=== PATIENT | male | born 1970 | race Caucasian/White ===

== ENCOUNTER → 2020-08-14 09:43 | Outpatient (CLI) | payer OTHER, SELFPAY ==
[2020-08-14 09:50] LABS: Bacteria 0 SEEN /hpf (None Seen); Mucous, Urine 0 SEEN /hpf (<or=2+); Red Blood Cells-Urine 0 SEEN /hpf (0-5); Squamous Epithelial Cells - UA 0 SEEN /hpf (0-5); White Blood Cells 0 SEEN /hpf (0-5)
[2020-08-14 12:47] LABS: Absolute Lymphocyte Count 2.44 X10^3/uL (0.83-4.51); Absolute Neutrophil Count 2.9 X10^3/uL (2.0-7.7); Basophil# 0.06 X10^3/uL; Eosinophil# 0.12 X10^3/uL; Eosinophils% 1.9 % (0-5); Hematocrit 48.4 % (40-54); Hemoglobin 16.5 g/dL (13.0-16.5); Lymphocyte # 2.44 X10^3/ul (4.0); Lymphocyte % 39.2 % (19-41); Mean Corp Hgb Conc 34.1 g/dL (32-36); Mean Corpuscular Hgb 29.8 pg (27.0-32.0); Mean Corpuscular Volume 87.4 fL (80-94); Mean Platelet Vol. 10.1 fl (6.2-12.0); Monocyte# 0.64 X10^3/uL; Monocyte% 10.3 % (0-10); NRBC Flagged by Analyzer 0 % (0-5); Neutrophil # 2.93 X10^3/uL (2.7-7.7); Neutrophil % 47.1 % (47-70); Platelet Count 250 K/mm3 (150-450); RBC Distribution Width CV 12.6 % (11.6-14.6); RBC Distribution Width SD 40.8 fl (35.1-43.9); Red Blood Count 5.54 M/mm3 (4.6-6.2); White Blood Count 6.2 K/mm3 (4.4-11.0)
[2020-08-14 12:51] LABS: Color, Urine Yellow (Yellow); Glucose, Dipstick Normal (Normal); Ketone-Dipstick Negative (Negative); Leukocyte Esterase-Dipstick Negative /ul (Negative); Nitrite-Dipstick Negative (Negative); Occult Blood-Urine Negative /ul (Negative); Protein-Dipstick 15 mg/dl (Negative); Urine Bilirubin Dipstick Negative (Negative); Urine Clarity Clear (Clear); Urine Urobilinogen Normal (Normal)
[2020-08-14 13:09] LABS: ALB/GLOB Ratio 0.8 RATIO (0.9-2.4); AST(SGOT) 39 U/L (15-37); Alanine Aminotransfer ALT/SGPT 92 U/L (16-61); Albumin, Serum 3.6 g/dL (3.2-5.0); Alkaline Phosphatase 85 U/L (45-117); Anion Gap 5 (5-15); BUN 16 mg/dL (7-18); BUN/Creat Ratio 14.5 RATIO (10-20); Calcium,Total 9.1 mg/dL (8.5-10.1); Chloride 109 mmol/L (98-107); Cholesterol 177 mg/dL (200); EST Glomerular Filtration Rate 75 mL/min (>60); Est Glom Filt Rate - Afr Amer 91 mL/min (>60); Globulin 4.3 g/dL (2.2-4.2); Glucose 82 mg/dL (74-106); High Density Lipoprotein 51 mg/dL; Protein, Total 7.9 g/dL (6.4-8.2); Sodium Level 138 mmol/L (136-145); Thyroid Stim Hormone (TSH) 4.41 uIU/mL (0.358-3.74); Triglycerides 145 mg/dL; Very Low Density Lipoprotein 29 mg/dL (5-40)
[2020-08-18 13:45] LABS: Hepatitis B Surface Antibody Reactive; Hepatitis B Surface Antigen Non-Reactive (Nonreactive); Hepatitis C Antibody Non-Reactive (Nonreactive)
== END ==
PROVIDERS: PCP Family Medicine; Referring Provider Family Medicine; Visit Provider Family Medicine
DX: E04.1 Nontoxic single thyroid nodule (principal); I10 Essential (primary) hypertension; R79.89 Other specified abnormal findings of blood chemistry
CPT/HCPCS: 36415; 80053; 80061; 81001; 84439; 84443; 85025; 86706; 86803; 87340

== ENCOUNTER → 2020-08-21 08:31 | Outpatient (CLI) | payer OTHER, SELFPAY ==
--- NOTE | 2020-08-21 08:34 | US_ITS ---
STUDY: THYROID ULTRASOUND REASON FOR EXAM: Male, 50 years old. NODULE TECHNIQUE: Ultrasound evaluation of the thyroid was performed with real-time and static sweeeny-scale imaging. COMPARISON: None. FINDINGS: RIGHT LOBE: The right lobe of the thyroid gland measures 3.7 x 1.6 x 2.3 cm. There is a homogeneous echotexture. There are no demonstrated solid, cystic or complex lesions. LEFT LOBE: The left lobe of the thyroid gland measures 3.4 x 1.7 x 1.8 cm. There is a homogeneous echotexture. There are no demonstrated solid, cystic or complex lesions. ISTHMUS: The isthmus measures 6 mm . Bilateral lymph nodes are noted to 1.7 cm in size on the right and up to 1.1 cm on the left. US/Thyroid IMPRESSION: Mild prominence of the thyroid. Electronically Signed: De Brito DO at 23:20 EDT Tel [phone], Service support ,
== END ==
PROVIDERS: PCP Family Medicine; Referring Provider Family Medicine; Visit Provider Family Medicine
DX: E04.1 Nontoxic single thyroid nodule (principal)
CPT/HCPCS: 76536

== ENCOUNTER → 2020-08-28 14:20 | Outpatient (CLI) | payer OTHER, SELFPAY ==
--- NOTE | 2020-08-28 14:23 | US_ITS ---
HISTORY: LYMPHADENOPATHY COMPARISON: None TECHNIQUE: Grayscale and color Doppler sonography of the regions of clinical concern in the neck bilaterally. FINDINGS: Multiple cervical nodes are seen bilaterally with fatty gabriela. Largest on the right measures 1.8 x 0.5 x 0.9 cm. Largest on the left measures 1.4 x 0.3 x 0.7 cm. US/Ext Non Vasc Limited/Soft Tiss IMPRESSION: Multiple normal morphology cervical nodes are seen bilaterally, not definitely pathologically enlarged. Clinical follow-up recommended. at 0808 Reported and signed by: Pam Urbano MD Electronically Signed: Pam Urbano MD at 8:08 EDT Tel , Service support ,
== END ==
PROVIDERS: PCP Family Medicine; Referring Provider Family Medicine; Visit Provider Family Medicine
DX: R59.1 Generalized enlarged lymph nodes (principal)
CPT/HCPCS: 76882

== ENCOUNTER → 2020-09-04 08:42 | Outpatient (CLI) | payer OTHER, SELFPAY ==
[2020-09-04 10:18] LABS: T4 Free Direct 0.87 ng/dL (0.76-1.46)
[2020-09-07 20:57] LABS: Anti-Thyroglobulin AB < 1.0 IU/mL (0.0-0.9); Thyroglobulin, Serum Qt. 38.4 ng/mL (1.4-29.2); Thyroid Peroxidase AB 112 IU/mL (0-34)
== END ==
PROVIDERS: PCP Family Medicine; Referring Provider Family Medicine; Visit Provider Family Medicine
DX: R79.89 Other specified abnormal findings of blood chemistry (principal)
CPT/HCPCS: 36415; 84432; 84439; 86376; 86800

== ENCOUNTER → 2020-11-27 15:18 | Outpatient (CLI) | payer OTHER, SELFPAY ==
[2020-11-27 17:36] LABS: Absolute Lymphocyte Count 2.22 X10^3/uL (0.83-4.51); Absolute Neutrophil Count 3.4 X10^3/uL (2.0-7.7); Basophil# 0.07 X10^3/uL; Basophil% 1.1 % (0-1); Eosinophil# 0.18 X10^3/uL; Eosinophils% 2.7 % (0-5); Hematocrit 45.3 % (40-54); Hemoglobin 15.5 g/dL (13.0-16.5); Lymphocyte # 2.22 X10^3/ul (4.0); Lymphocyte % 33.7 % (19-41); Mean Corp Hgb Conc 34.2 g/dL (32-36); Mean Corpuscular Hgb 29.9 pg (27.0-32.0); Mean Corpuscular Volume 87.3 fL (80-94); Mean Platelet Vol. 10.4 fl (6.2-12.0); Monocyte# 0.74 X10^3/uL; Monocyte% 11.2 % (0-10); NRBC Flagged by Analyzer 0 % (0-5); Neutrophil # 3.35 X10^3/uL (2.7-7.7); Platelet Count 298 K/mm3 (150-450); RBC Distribution Width CV 12.4 % (11.6-14.6); RBC Distribution Width SD 39.9 fl (35.1-43.9); Red Blood Count 5.19 M/mm3 (4.6-6.2); White Blood Count 6.6 K/mm3 (4.4-11.0)
[2020-11-27 18:11] LABS: AST(SGOT) 33 U/L (15-37); Alanine Aminotransfer ALT/SGPT 75 U/L (16-61); Albumin, Serum 3.9 g/dL (3.2-5.0); Alkaline Phosphatase 97 U/L (45-117); Anion Gap 8 (5-15); BUN 15 mg/dL (7-18); BUN/Creat Ratio 11.8 RATIO (10-20); Calcium,Total 8.7 mg/dL (8.5-10.1); Chloride 107 mmol/L (98-107); Creatinine, Serum 1.27 mg/dL (0.70-1.30); EST Glomerular Filtration Rate 64 mL/min (>60); Est Glom Filt Rate - Afr Amer 77 mL/min (>60); Globulin 3.9 g/dL (2.2-4.2); Glucose 88 mg/dL (74-106); Potassium 3.7 mmol/L (3.5-5.1); Protein, Total 7.8 g/dL (6.4-8.2); Sodium Level 141 mmol/L (136-145); T4 Free Direct 1.01 ng/dL (0.76-1.46); Thyroid Stim Hormone (TSH) 3.54 uIU/mL (0.358-3.74)
== END ==
PROVIDERS: PCP Family Medicine; Visit Provider Family Medicine
DX: I10 Essential (primary) hypertension (principal); E06.3 Autoimmune thyroiditis
CPT/HCPCS: 36415; 80053; 84439; 84443; 85025

== ENCOUNTER → 2020-12-03 16:42 | Outpatient (CLI) | payer OTHER, SELFPAY ==
--- NOTE | 2020-12-03 16:43 | CT_ITS ---
STUDY: CT SOFT TISSUE NECK WITH CONTRAST REASON FOR EXAM: Male, 50 years old. Lymphadenopathy, doctor and quot;might and quot; have felt an enlarged lymph node. -- Patient denies any pain or trouble swallowing. Hx testicular cancer. RADIATION DOSAGE (If Supplied By Facility): CTDIvol = ( 18.31 ) mGy, DLP = ( 599.31 ) mGycm TECHNIQUE: The patient was scanned in a multi-detector CT scanner. High resolution transaxial imaging was performed following intravenous administration of IV 100mL Isovue-[id number]. Sagittal and coronal images were reconstructed. Individualized dose optimization techniques were used for this CT. COMPARISON: None. FINDINGS: Normal bilateral parotid glands. Normal bilateral deputy grand jury spaces. Normal bilateral parapharyngeal spaces. Normal bilateral carotid spaces. Normal bilateral sublingual and submandibular glands and spaces. Normal visualized nasopharynx. Normal retropharyngeal space. Normal perivertebral space. Normal visualized bilateral faucial tonsils. The visualized tongue, tongue base and oropharynx are normal. The visualized cervical lymph nodes (levels I-) are within normal size limits, and maintain normal morphology. There is a single prominent left jugular lymph node at the level before the mouth which measures 1.0 x 1.6 cm and maintains a normal fatty hilum consistent with a normal lymph node. There is no demonstrated solid or cystic mass lesion. There is no abnormal contrast enhancement. Normal epiglottis, bilateral vallecula and hypopharynx. The pre-epiglottic and paraglottic adipose spaces are normal. Normal visualized bilateral piriform sinuses, aryepiglottic folds, vocal cords, and arytenoid-cricoid articulations. Normal subglottic trachea. Normal bilateral lobes of the thyroid gland. Normal visualized pulmonary apices. Normal visualized paranasal sinuses. Normal visualized cervical spine. CT/Soft Tissue Neck WITH Contrast IMPRESSION: Normal enhanced CT examination of the soft tissues of the neck. Electronically Signed: Gil Schulz MD at 17:25 EST Tel , Service support ,
== END ==
PROVIDERS: PCP Family Medicine; Referring Provider Family Medicine; Visit Provider Family Medicine
DX: R59.1 Generalized enlarged lymph nodes (principal)
CPT/HCPCS: 70491; Q9967

== ENCOUNTER → 2021-05-25 07:25 | Outpatient (CLI) | payer OTHER, SELFPAY ==
[2021-05-25 07:30] LABS: Bacteria 0 SEEN /hpf (None Seen); Mucous, Urine 0 SEEN /hpf (<or=2+); Red Blood Cells-Urine 0 SEEN /hpf (0-5); Squamous Epithelial Cells - UA 0 SEEN /hpf (0-5)
[2021-05-25 10:12] LABS: Absolute Lymphocyte Count 2.17 X10^3/uL (0.83-4.51); Absolute Neutrophil Count 3.4 X10^3/uL (2.0-7.7); Basophil# 0.06 X10^3/uL; Basophil% 0.9 % (0-1); Eosinophil# 0.12 X10^3/uL; Eosinophils% 1.9 % (0-5); Hematocrit 47.1 % (40-54); Hemoglobin 16.1 g/dL (13.0-16.5); Lymphocyte # 2.17 X10^3/ul (0.83-4.51); Lymphocyte % 33.7 % (19-41); Mean Corp Hgb Conc 34.2 g/dL (32-36); Mean Corpuscular Hgb 30.1 pg (27.0-32.0); Mean Corpuscular Volume 88.2 fL (80-94); Mean Platelet Vol. 10.3 fl (6.2-12.0); Monocyte# 0.62 X10^3/uL; Monocyte% 9.6 % (0-10); NRBC Flagged by Analyzer 0 % (0-5); Neutrophil # 3.43 X10^3/uL (2.7-7.7); Neutrophil % 53.4 % (47-70); Platelet Count 234 K/mm3 (150-450); RBC Distribution Width CV 12.9 % (11.6-14.6); RBC Distribution Width SD 41.9 fl (35.1-43.9); Red Blood Count 5.34 M/mm3 (4.6-6.2); White Blood Count 6.4 K/mm3 (4.4-11.0)
[2021-05-25 10:15] LABS: Color, Urine Yellow (Yellow); Glucose, Dipstick Normal (Normal); Ketone-Dipstick Negative (Negative); Leukocyte Esterase-Dipstick Negative /ul (Negative); Nitrite-Dipstick Negative (Negative); Occult Blood-Urine Negative /ul (Negative); Protein-Dipstick 15 mg/dl (Negative); Urine Bilirubin Dipstick Negative (Negative); Urine Clarity Clear (Clear); Urine Urobilinogen Normal (Normal)
[2021-05-25 10:26] LABS: White Blood Cells 0-5 SEEN /hpf (0-5)
[2021-05-25 10:46] LABS: AST(SGOT) 39 U/L (15-37); Alanine Aminotransfer ALT/SGPT 111 U/L (16-61); Albumin, Serum 3.8 g/dL (3.2-5.0); Alkaline Phosphatase 93 U/L (45-117); Anion Gap 7 (5-15); BUN 15 mg/dL (7-18); BUN/Creat Ratio 13.4 RATIO (10-20); Calcium,Total 8.6 mg/dL (8.5-10.1); Chloride 108 mmol/L (98-107); Cholesterol 193 mg/dL (200); Creatinine, Serum 1.12 mg/dL (0.70-1.30); EST Glomerular Filtration Rate 73 mL/min (>60); Est Glom Filt Rate - Afr Amer 89 mL/min (>60); Glucose 84 mg/dL (74-106); High Density Lipoprotein 49 mg/dL; Potassium 3.8 mmol/L (3.5-5.1); Protein, Total 7.8 g/dL (6.4-8.2); Sodium Level 140 mmol/L (136-145); Triglycerides 138 mg/dL; Very Low Density Lipoprotein 28 mg/dL (5-40)
== END ==
PROVIDERS: PCP Family Medicine; Referring Provider Family Medicine; Visit Provider Family Medicine
DX: I10 Essential (primary) hypertension (principal); E06.3 Autoimmune thyroiditis; R79.89 Other specified abnormal findings of blood chemistry
CPT/HCPCS: 80053; 80061; 81001; 84439; 84443; 85025

== ENCOUNTER → 2021-08-23 08:43 | Outpatient (CLI) | payer OTHER, SELFPAY ==
[2021-08-23 10:21] LABS: Absolute Lymphocyte Count 1.78 X10^3/uL (0.83-4.51); Absolute Neutrophil Count 3.2 X10^3/uL (2.0-7.7); Basophil# 0.05 X10^3/uL; Basophil% 0.9 % (0-1); Eosinophils% 1.7 % (0-5); Hemoglobin 16.4 g/dL (13.0-16.5); Lymphocyte # 1.78 X10^3/ul (0.83-4.51); Lymphocyte % 30.4 % (19-41); Mean Corp Hgb Conc 34.9 g/dL (32-36); Mean Corpuscular Hgb 30.5 pg (27.0-32.0); Mean Corpuscular Volume 87.4 fL (80-94); Monocyte# 0.66 X10^3/uL; Monocyte% 11.3 % (0-10); NRBC Flagged by Analyzer 0 % (0-5); Neutrophil # 3.24 X10^3/uL (2.7-7.7); Neutrophil % 55.2 % (47-70); Platelet Count 248 K/mm3 (150-450); RBC Distribution Width CV 12.9 % (11.6-14.6); RBC Distribution Width SD 41.1 fl (35.1-43.9); Red Blood Count 5.38 M/mm3 (4.6-6.2); White Blood Count 5.9 K/mm3 (4.4-11.0)
[2021-08-23 11:25] LABS: ALB/GLOB Ratio 0.8 RATIO (0.9-2.4); AST(SGOT) 40 U/L (15-37); Alanine Aminotransfer ALT/SGPT 110 U/L (16-61); Albumin, Serum 3.7 g/dL (3.2-5.0); Alkaline Phosphatase 95 U/L (45-117); Anion Gap 9 (5-15); BUN 15 mg/dL (7-18); BUN/Creat Ratio 13.2 RATIO (10-20); Calcium,Total 8.9 mg/dL (8.5-10.1); Chloride 105 mmol/L (98-107); Creatinine, Serum 1.14 mg/dL (0.70-1.30); EST Glomerular Filtration Rate 72 mL/min (>60); Est Glom Filt Rate - Afr Amer 87 mL/min (>60); Globulin 4.4 g/dL (2.2-4.2); Glucose 82 mg/dL (74-106); Potassium 3.5 mmol/L (3.5-5.1); Protein, Total 8.1 g/dL (6.4-8.2); Sodium Level 140 mmol/L (136-145); T4 Free Direct 0.92 ng/dL (0.76-1.46); Thyroid Stim Hormone (TSH) 5.71 uIU/mL (0.358-3.74)
[2021-08-24 17:15] LABS: Anti-Thyroglobulin AB < 1.0 IU/mL (0.0-0.9); Thyroglobulin, Serum Qt. 49.9 ng/mL (1.4-29.2); Thyroid Peroxidase AB 165 IU/mL (0-34)
== END ==
PROVIDERS: PCP Family Medicine; Referring Provider Family Medicine; Visit Provider Family Medicine
DX: I10 Essential (primary) hypertension (principal); E06.3 Autoimmune thyroiditis; R94.5 Abnormal results of liver function studies
CPT/HCPCS: 36415; 80053; 84432; 84439; 84443; 85025; 86376; 86800

== ENCOUNTER 2021-11-17 15:18 | Outpatient (CLI) | payer OTHER, SELFPAY ==
[2021-11-17 15:24] LABS: Bacteria 0 SEEN /hpf (None Seen); Mucous, Urine 0 SEEN /hpf (<or=2+); Red Blood Cells-Urine 0 SEEN /hpf (0-5); Squamous Epithelial Cells - UA 0 SEEN /hpf (0-5); White Blood Cells 0 SEEN /hpf (0-5)
[2021-11-17 18:04] LABS: Absolute Lymphocyte Count 2.14 X10^3/uL (0.83-4.51); Absolute Neutrophil Count 3.3 X10^3/uL (2.0-7.7); Basophil# 0.04 X10^3/uL; Basophil% 0.6 % (0-1); Eosinophil# 0.14 X10^3/uL; Eosinophils% 2.2 % (0-5); Hematocrit 44.9 % (40-54); Hemoglobin 14.9 g/dL (13.0-16.5); Lymphocyte # 2.14 X10^3/ul (0.83-4.51); Lymphocyte % 33.3 % (19-41); Mean Corp Hgb Conc 33.2 g/dL (32-36); Mean Corpuscular Hgb 29.7 pg (27.0-32.0); Mean Corpuscular Volume 89.6 fL (80-94); Mean Platelet Vol. 9.9 fl (6.2-12.0); Monocyte# 0.83 X10^3/uL; Monocyte% 12.9 % (0-10); NRBC Flagged by Analyzer 0 % (0-5); Neutrophil # 3.26 X10^3/uL (2.7-7.7); Neutrophil % 50.7 % (47-70); Platelet Count 254 K/mm3 (150-450); RBC Distribution Width CV 13.1 % (11.6-14.6); RBC Distribution Width SD 42.8 fl (35.1-43.9); Red Blood Count 5.01 M/mm3 (4.6-6.2); White Blood Count 6.4 K/mm3 (4.4-11.0)
[2021-11-17 18:09] LABS: Color, Urine Yellow (Yellow); Glucose, Dipstick Normal (Normal); Ketone-Dipstick Negative (Negative); Leukocyte Esterase-Dipstick Negative /ul (Negative); Nitrite-Dipstick Negative (Negative); Occult Blood-Urine Negative /ul (Negative); Protein-Dipstick Negative (Negative); Specific Gravity, Urine 1.025 (1.002-1.030); Urine Bilirubin Dipstick Negative (Negative); Urine Clarity Clear (Clear); Urine Urobilinogen Normal (Normal)
[2021-11-17 19:45] LABS: ALB/GLOB Ratio 0.9 RATIO (0.9-2.4); AST(SGOT) 52 U/L (15-37); Alanine Aminotransfer ALT/SGPT 128 U/L (16-61); Albumin, Serum 3.6 g/dL (3.2-5.0); Alkaline Phosphatase 91 U/L (45-117); Anion Gap 5 (5-15); BUN 17 mg/dL (7-18); BUN/Creat Ratio 13.3 RATIO (10-20); Calcium,Total 9.2 mg/dL (8.5-10.1); Chloride 109 mmol/L (98-107); Cholesterol 180 mg/dL (200); Creatinine, Serum 1.28 mg/dL (0.70-1.30); EST Glomerular Filtration Rate 63 mL/min (>60); Est Glom Filt Rate - Afr Amer 76 mL/min (>60); Glucose 115 mg/dL (74-106); High Density Lipoprotein 36 mg/dL; Potassium 3.5 mmol/L (3.5-5.1); Protein, Total 7.6 g/dL (6.4-8.2); Sodium Level 141 mmol/L (136-145); T4 Free Direct 1.08 ng/dL (0.76-1.46); Thyroid Stim Hormone (TSH) 3.24 uIU/mL (0.358-3.74); Triglycerides 331 mg/dL; Very Low Density Lipoprotein 66 mg/dL (5-40)
[2021-11-18 16:26] LABS: Hemoglobin A1c 5.5 % (3.8-5.6)
== END 2021-11-17 23:59 | disposition short-term general hospital (02) ==
LOC: MFPLAB 15:19
PROVIDERS: PCP Family Medicine; Referring Provider Family Medicine; Visit Provider Family Medicine
DX: R73.09 Other abnormal glucose (principal); I10 Essential (primary) hypertension; E06.3 Autoimmune thyroiditis
CPT/HCPCS: 36415; 80053; 80061; 81001; 83036; 84439; 84443; 85025

== ENCOUNTER → 2022-05-20 | Outpatient (CLI) | payer OTHER, SELFPAY ==
[2022-05-20 16:42] LABS: Red Blood Cells-Urine 0 SEEN /hpf (0-5); Squamous Epithelial Cells - UA 0 SEEN /hpf (0-5); White Blood Cells 0 SEEN /hpf (0-5)
[2022-05-20 18:07] LABS: Color, Urine Yellow (Yellow); Glucose, Dipstick Normal (Normal); Ketone-Dipstick Negative (Negative); Leukocyte Esterase-Dipstick Negative /ul (Negative); Nitrite-Dipstick Negative (Negative); Occult Blood-Urine Negative /ul (Negative); Protein-Dipstick Negative (Negative); Specific Gravity, Urine 1.025 (1.002-1.030); Urine Bilirubin Dipstick Negative (Negative); Urine Clarity Clear (Clear); Urine Urobilinogen Normal (Normal)
[2022-05-20 18:24] LABS: ALB/GLOB Ratio 1.1 RATIO (0.9-2.4); AST(SGOT) 26 U/L (15-37); Alanine Aminotransfer ALT/SGPT 42 U/L (16-61); Albumin, Serum 3.8 g/dL (3.2-5.0); Alkaline Phosphatase 91 U/L (45-117); Anion Gap 6 (5-15); BUN 20 mg/dL (7-18); BUN/Creat Ratio 16.9 RATIO (10-20); Calcium,Total 8.8 mg/dL (8.5-10.1); Chloride 108 mmol/L (98-107); Cholesterol 171 mg/dL (200); Creatinine, Serum 1.18 mg/dL (0.70-1.30); EST Glomerular Filtration Rate 69 mL/min (>60); Est Glom Filt Rate - Afr Amer 83 mL/min (>60); Globulin 3.5 g/dL (2.2-4.2); Glucose 94 mg/dL (74-106); High Density Lipoprotein 54 mg/dL; Potassium 3.8 mmol/L (3.5-5.1); Protein, Total 7.3 g/dL (6.4-8.2); Sodium Level 141 mmol/L (136-145); Thyroid Stim Hormone (TSH) 1.43 uIU/mL (0.358-3.74); Triglycerides 106 mg/dL; Very Low Density Lipoprotein 21 mg/dL (5-40)
[2022-05-20 18:44] LABS: Bacteria RARE /hpf (None Seen); Calcium Oxalate Crystals Ur 1+ /hpf (<or=2+); Mucous, Urine 1+ /hpf (<or=2+)
== END | disposition home or self-care (01) ==
LOC: MFPLAB 16:32
PROVIDERS: PCP Family Medicine; Referring Provider Family Medicine; Visit Provider Family Medicine
DX: I10 Essential (primary) hypertension (principal); E06.3 Autoimmune thyroiditis
CPT/HCPCS: 36415; 80053; 80061; 81001; 84439; 84443

== ENCOUNTER → 2022-11-23 | Outpatient (CLI) | payer OTHER, SELFPAY ==
[2022-11-23 10:27] LABS: Absolute Lymphocyte Count 1.45 X10^3/uL (0.83-4.51); Absolute Neutrophil Count 3.1 X10^3/uL (2.0-7.7); Basophil# 0.03 X10^3/uL; Basophil% 0.6 % (0-1); Eosinophil# 0.11 X10^3/uL; Eosinophils% 2.1 % (0-5); Hematocrit 46.2 % (40-54); Hemoglobin 15.9 g/dL (13.0-16.5); Lymphocyte # 1.45 X10^3/ul (0.83-4.51); Lymphocyte % 27.7 % (19-41); Mean Corp Hgb Conc 34.4 g/dL (32-36); Mean Corpuscular Hgb 30.8 pg (27.0-32.0); Mean Corpuscular Volume 89.5 fL (80-94); Mean Platelet Vol. 10.4 fl (6.2-12.0); Monocyte# 0.53 X10^3/uL; Monocyte% 10.1 % (0-10); NRBC Flagged by Analyzer 0 % (0-5); Neutrophil % 59.3 % (47-70); Platelet Count 240 K/mm3 (150-450); RBC Distribution Width CV 12.7 % (11.6-14.6); RBC Distribution Width SD 41.7 fl (35.1-43.9); Red Blood Count 5.16 M/mm3 (4.6-6.2); White Blood Count 5.2 K/mm3 (4.4-11.0)
[2022-11-23 11:02] LABS: ALB/GLOB Ratio 1.2 RATIO (0.9-2.4); AST(SGOT) 20 U/L (15-37); Alanine Aminotransfer ALT/SGPT 29 U/L (16-61); Albumin, Serum 3.9 g/dL (3.2-5.0); Alkaline Phosphatase 88 U/L (45-117); Anion Gap 3 (5-15); BUN 16 mg/dL (7-18); BUN/Creat Ratio 16.2 RATIO (10-20); Calcium,Total 9.3 mg/dL (8.5-10.1); Chloride 107 mmol/L (98-107); Cholesterol 169 mg/dL (200); Creatinine, Serum 0.98 mg/dL (0.70-1.30); EST Glomerular Filtration Rate 85 mL/min (>60); Est Glom Filt Rate - Afr Amer 102 mL/min (>60); Globulin 3.3 g/dL (2.2-4.2); Glucose 85 mg/dL (74-106); High Density Lipoprotein 61 mg/dL; Protein, Total 7.2 g/dL (6.4-8.2); Sodium Level 140 mmol/L (136-145); T4 Free Direct 1.07 ng/dL (0.76-1.46); Thyroid Stim Hormone (TSH) 2.58 uIU/mL (0.358-3.74); Triglycerides 93 mg/dL; Very Low Density Lipoprotein 19 mg/dL (5-40)
== END | disposition home or self-care (01) ==
LOC: MFPLAB 08:14
PROVIDERS: PCP Family Medicine; Referring Provider Family Medicine; Visit Provider Family Medicine
DX: Z00.00 Encounter for general adult medical examination without abnormal findings (principal)
CPT/HCPCS: 36415; 80053; 80061; 84439; 84443; 85025

== ENCOUNTER → 2023-05-17 | Outpatient (CLI) | payer OTHER, SELFPAY ==
[2023-05-17 08:29] LABS: Bacteria 0 SEEN /hpf (None Seen); Mucous, Urine 0 SEEN /hpf (<or=2+); Red Blood Cells-Urine 0 SEEN /hpf (0-5); Squamous Epithelial Cells - UA 0 SEEN /hpf (0-5); White Blood Cells 0 SEEN /hpf (0-5)
[2023-05-17 10:13] LABS: Absolute Neutrophil Count 3.2 X10^3/uL (2.0-7.7); Basophil# 0.05 X10^3/uL; Basophil% 0.9 % (0-1); Eosinophil# 0.04 X10^3/uL; Eosinophils% 0.7 % (0-5); Hematocrit 45.8 % (40-54); Hemoglobin 16.1 g/dL (13.0-16.5); Lymphocyte % 29.5 % (19-41); Mean Corp Hgb Conc 35.2 g/dL (32-36); Mean Corpuscular Hgb 31.4 pg (27.0-32.0); Mean Corpuscular Volume 89.3 fL (80-94); Mean Platelet Vol. 10.2 fl (6.2-12.0); Monocyte# 0.52 X10^3/uL; Monocyte% 9.6 % (0-10); NRBC Flagged by Analyzer 0 % (0-5); Neutrophil % 58.9 % (47-70); Platelet Count 230 K/mm3 (150-450); RBC Distribution Width CV 12.6 % (11.6-14.6); RBC Distribution Width SD 41.1 fl (35.1-43.9); Red Blood Count 5.13 M/mm3 (4.6-6.2); White Blood Count 5.4 K/mm3 (4.4-11.0)
[2023-05-17 10:22] LABS: Color, Urine Yellow (Yellow); Glucose, Dipstick Normal (Normal); Ketone-Dipstick Negative (Negative); Leukocyte Esterase-Dipstick Negative /ul (Negative); Nitrite-Dipstick Negative (Negative); Occult Blood-Urine Negative /ul (Negative); Protein-Dipstick Negative (Negative); Urine Bilirubin Dipstick Negative (Negative); Urine Clarity Sl. Cloudy (Clear); Urine Urobilinogen Normal (Normal); Urine pH 6.5 (5.0 - 8.0)
[2023-05-17 10:52] LABS: ALB/GLOB Ratio 0.9 RATIO (0.9-2.4); AST(SGOT) 34 U/L (15-37); Alanine Aminotransfer ALT/SGPT 38 U/L (16-61); Albumin, Serum 3.6 g/dL (3.2-5.0); Alkaline Phosphatase 83 U/L (45-117); Anion Gap 5 (5-15); BUN 18 mg/dL (7-18); BUN/Creat Ratio 16.5 RATIO (10-20); Calcium,Total 8.8 mg/dL (8.5-10.1); Chloride 107 mmol/L (98-107); Creatinine, Serum 1.09 mg/dL (0.70-1.30); EST Glomerular Filtration Rate 75 mL/min (>60); Est Glom Filt Rate - Afr Amer 91 mL/min (>60); Glucose 91 mg/dL (74-106); Potassium 4.3 mmol/L (3.5-5.1); Protein, Total 7.6 g/dL (6.4-8.2); Sodium Level 139 mmol/L (136-145); T4 Free Direct 1.02 ng/dL (0.76-1.46); Thyroid Stim Hormone (TSH) 2.32 uIU/mL (0.358-3.74)
== END | disposition home or self-care (01) ==
LOC: MFPLAB 08:23
PROVIDERS: PCP Family Medicine; Visit Provider Family Medicine
DX: I10 Essential (primary) hypertension (principal); E06.3 Autoimmune thyroiditis
CPT/HCPCS: 36415; 80053; 81001; 84439; 84443; 85025

== ENCOUNTER → 2023-11-27 | Outpatient (CLI) | payer OTHER, SELFPAY ==
[2023-11-27 08:23] LABS: Bacteria 0 SEEN /hpf (None Seen); Red Blood Cells-Urine 0 SEEN /hpf (0-5)
--- OUTSIDE RECORDS SUMMARY | 2023-11-27 08:59 | XMS RPT_ITS | CCD ---
Author Name Unknown Address [address] [place] [address] Organization [facility] Care Team Providers Care Online User Experience Strategist Name Role Phone Kailyn Looney Unavailable [phone] GIL DURAN Attending Unavail able KLAPCHABerkley, GIL JO Referring Unavail able COCUMELLTanvi, KAILYN PEARSON Primary Care Unavaila ble KLAPBETSY, GIL JO Admitting Unavail able KLAPCHABerkley, GIL JO Attending Unavail able COCUMELLTanvi, KAILYN PEARSON Primary Care Unavaila ble CAMRYN, GIL JO Admitting Unavail able COCUMELLTanvi, KAILYN PEARSON Primary Care Unavaila ble SANDRO PAYNE Attending Unavailable Fawn, Kailyn Pearson Primary Care Provider KAILYN LOONEY Primary Care Unavaila ble COCUMELLI, KAILYN PEARSON Admitting Unavaila ble COCUMELLTanvi, KAILYN PEARSON Primary Care Unavaila ble GAIBLE, SANDRA ALVARADO Admitting Unavailab le GAIBLE, SANDRA ALVARADO Referring Unavailab le COCUMELLTanvi, KAILYN PEARSON Primary Care Unavaila ble Fawn, Kailyn Pearson Primary Care Provider [phone] KAILYN LOONEY Attending Unavaila ble COCUMELLTanvi, KAILYN PEARSON Primary Care Unavaila ble Medications Current Medications Medication Drug Class(es) Dates Sig (Normalized) Sig (Original) amLODIPine 5 mg / valsartan 160 mg oral tablet (13 sources) Dihydropyridine Calcium Channel Jose David, Angiotensin 2 Receptor Jose David Start: 07-30-2020 take 1 tablet by mouth once daily amLODIPine-valsa rtan (EXFORGE) 5-160 mg per tablet Indications: Hypertension, essential Take 1 (one) tablet by mouth daily . 30 tablet 1 07/30/2020 Active Completed/Discontinued Medications Medication Drug Class(es) Dates Sig (Normalized) Sig (Original) acetaminophen 325 mg / HYDROcodone bitartrate 7.5 mg oral tablet (13 sources) Opioid Agonist Start: 12-11-2019 End: 12-11-2019 HYDROcodone-acetam inophen (NORCO) 7.5-325 mg per tablet 2 tablet Problems Active Problems Problem Classification Problem Date Documented Date Episodic/Chronic Abdominal pain (1 source) Left flank pain; Translations: [Left flank pain] Episodic Disorders of lipid metabolism (20 sources) Hypertriglyceridemia ; Translations: [Hypertriglyceridemi a] Onset: 08-04-2016 08-04-2016 Chronic Essential hypertension (20 sources) Essential hypertension; Translations: [Hypertensive disorder] Onset: 08-04-2016 08-18-2017 Chronic Other connective tissue disease (1 source) Triggering of digit; Translations: [Trigger middle finger of left hand] Episodic Other endocrine disorders (2 sources) Deficiency of testosterone biosynthesis; 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 Other injuries and conditions due to external causes (1 source) Injury of nose; Translations: [Injury of nose, sequela] Episodic Other lower respiratory disease (1 source) Apnea; Translations: [Witnessed episode of apnea] Episodic Other lower respiratory disease (1 source) Snoring; Translations: [Habitual snoring] Episodic Other male genital disorders (16 sources) Impotence of organic origin; Translations: [Erectile dysfunction] Onset: 08-04-2016 08-04-2016 Chronic Other male genital disorders (11 sources) Impotence; Translations: [Erectile dysfunction] Onset: 08-04-2016 08-04-2016 Chronic Other male genital disorders (1 source) Male erectile dysfunction, unspecified; Translations: [Erectile dysfunction] Onset: 08-04-2016 08-04-2016 Chronic Other nervous system disorders (1 source) Acute postoperative pain; Translations: [Acute post-operative pain] Episodic Other upper respiratory disease (1 source) Chronic rhinitis; Translations: [Chronic rhinitis] Chronic Other upper respiratory disease (5 sources) Deviated nasal septum; Translations: [DNS (deviated nasal septum)] Episodic Other upper respiratory disease (7 sources) Hypertrophy of nasal turbinates; Translations: [Hypertrophy of both inferior nasal turbinates] Episodic Other upper respiratory disease (7 sources) Nasal obstruction; Translations: [Nasal obstruction without choanal atresia] Episodic Residual codes; unclassified (1 source) Requires a hepatitis A vaccination; Translations: [Need for hepatitis A immunization] Episodic Residual codes; unclassified (5 sources) H/O: surgery; Translations: [History of nasal septoplasty] Episodic Spondylosis; intervertebral disc disorders; other back problems (2 sources) Backache; Translations: [Acute low back pain] Episodic Unclassified (8 sources) Patient encounter status; Translations: [Physical exam] Unclassified (1 source) Medication side effects present; Translations: [Medication side effect] Past or Other Problems Problem Classification Problem Date Documented Da te Episodic/Chronic Genitourinary symptoms and ill-defined conditions (1 source) Increased frequency of urination; Translations: [Urinary frequency] Episodic Other circulatory disease (17 sources) Elevated blood pressure; Translations: [Elevated blood pressure reading] Onset: 03-15-2019 03-15-2019 Episodic Other injuries and conditions due to external causes (1 source) Motion sickness; Translations: [Motion sickness, initial encounter] Episodic Other upper respiratory infections (20 sources) Chronic sinusitis; Translations: [Sinobronchitis] Onset: 08-18-2017 Resolved: 05-21-2018 08-18-2017 Chronic Results Test Name Value Interpretation Reference Range Facil ity Vital Signs Date Time Vital Sign Value Performing Clinician Jhoana gann 01-10-2020 08:30-0500 BMI (Body Mass Index) 35.45 kg/m2 [facility] 01-10-2020 08:30-0500 Body Temperature 99.19 [degF] [facility] 01-10-2020 08:30-0500 Body weight 96.[address] [facility] 01-10-2020 08:30-0500 BP Diastolic 78 mm[Hg] [facility] 01-10-2020 08:30-0500 BP Systolic 116 mm[Hg] [facility] 01-10-2020 08:30-[address] [facility] 01-10-2020 08:30-0500 Pulse (Heart Rate) 66 /min [facility] 01-10-2020 08:30-0500 Pulse Oximetry 98 % [facility] 12-11-2019 16:08-0500 Body Temperature 97.9 [degF] Gil Duran [facility] 12-11-2019 16:08-0500 BP Diastolic 81 mm[Hg] Gil Duran [facility] 12-11-2019 16:08-0500 BP Systolic 133 mm[Hg] Gil Duran [facility] 12-11-2019 16:08-0500 Pulse (Heart Rate) 80 /min Gil Duran [facility] 12-11-2019 16:08-0500 Pulse Oximetry 99 % Gil Duran [facility] 12-11-2019 16:08-0500 Respiratory Rate 14 /min Gil Duran [facility] 10-11-2019 08:05-0500 Body Temperature 98.49 [degF] Gil Duran [facility] 10-11-2019 08:05-0500 Pulse (Heart Rate) 85 /min Gil Duran [facility] 10-11-2019 08:05-0500 Pulse Oximetry 93 % Gil Duran [facility] 08-16-2019 08:29-0400 BMI (Body Mass Index) 35.28 kg/m2 [facility] 08-16-2019 08:29-0400 Body Temperature 98.2 [degF] [facility] 08-16-2019 08:29-0400 Body weight 96.16 kg [facility] 08-16-2019 08:29-0400 BP Diastolic 82 mm[Hg] [facility] 08-16-2019 08:29-0400 BP Systolic 126 mm[Hg] [facility] 08-16-2019 08:29-0400 Height 165.1 cm [facility] 08-16-2019 08:29-0400 Pulse (Heart Rate) 80 /min [facility] 08-16-2019 08:29-0400 Pulse Oximetry 96 % [facility] 07-19-2019 08:51-0400 BP Diastolic 72 mm[Hg] [facility] 07-19-2019 08:51-0400 BP Systolic 120 mm[Hg] [facility] 07-19-2019 08:29-0400 BMI (Body Mass Index) 35.28 kg/m2 [facility] 07-19-2019 08:29-0400 Body Temperature 98.2 [degF] [facility] 07-19-2019 08:29-0400 Body [facility] 96.16 [facility] 07-19-2019 08:29-0400 Height 165.1 cm [facility] 07-19-2019 08:29-0400 Pulse (Heart Rate) 77 /min [facility] 07-19-2019 08:29-0400 Pulse Oximetry 96 % [facility] 04-05-2019 10:33-0400 BMI (Body Mass Index) 35.61 kg/m2 [facility] 04-05-2019 10:33-0400 Body Temperature 98.4 [degF] [facility] 04-05-2019 10:33-0400 BP Diastolic 79 mm[Hg] [facility] 04-05-2019 10:33-0400 BP Systolic 117 mm[Hg] [facility] 04-05-2019 10:33-[address] [facility] 04-05-2019 10:33-0400 Pulse (Heart Rate) 87 /min [facility] 04-05-2019 10:33-0400 Pulse Oximetry 95 % [facility] 04-05-2019 10:33-0400 Weight 97.07 kg [facility] 03-15-2019 12:03-0400 BP Diastolic 94 mm[Hg] [facility] 03-15-2019 12:03-0400 BP Systolic 142 mm[Hg] [facility] 03-15-2019 11:01-0400 BMI (Body Mass Index) 35.61 kg/m2 [facility] 03-15-2019 11:01-0400 Body Temperature 98.29 [degF] [facility] 03-15-2019 11:01-0400 Height 165.1 cm [facility] 03-15-2019 11:01-0400 Pulse (Heart Rate) 77 /min [facility] 03-15-2019 11:01-0400 Pulse Oximetry 98 % [facility] 03-15-2019 11:01-0400 Weight 97.07 kg Kailyn Looney [facility] 01-11-2019 07:59-0500 BMI (Body Mass Index) 35.11 kg/m2 Kailyn Looney [facility] 01-11-2019 07:59-0500 Body Temperature 97.59 [degF] Kailyn Looney [facility] 01-11-2019 07:59-0500 BP Diastolic 100 mm[Hg] Kailyn Looney [facility] 01-11-2019 07:59-0500 BP Systolic 154 mm[Hg] [facility] 01-11-2019 07:59-0500 Height 165.1 cm [facility] 01-11-2019 07:59-0500 Pulse (Heart Rate) 84 /min Kailyn Looney [facility] 01-11-2019 07:59-0500 Pulse Oximetry 98 % Kailyn Fawn [facility] 01-11-2019 07:59-0500 Weight 95.71 kg [facility] 12-14-2018 10:59-0500 BMI (Body Mass Index) 35.78 kg/m2 [facility] 12-14-2018 10:59-0500 Body Temperature 97.59 [degF] Kailyn Nidatanvi [facility] 12-14-2018 10:59-0500 BP Diastolic 100 mm[Hg] [facility] 12-14-2018 10:59-0500 BP Systolic 144 mm[Hg] [facility] 12-14-2018 10:59-0500 Height 165.1 cm [facility] 12-14-2018 10:59-0500 Pulse (Heart Rate) 67 /min [facility] 12-14-2018 10:59-0500 Pulse Oximetry 98 % Kailyn Alvatanvi [facility] 12-14-2018 10:59-0500 Weight 97.52 kg [facility] 11-02-2018 11:42-0500 BMI (Body Mass Index) 35.61 kg/m2 Kailyn Looney [facility] 11-02-2018 11:42-0500 Body Temperature 99.19 [degF] [facility] 11-02-2018 11:42-0500 BP Diastolic 100 mm[Hg] Kailyn Looney [facility] 11-02-2018 11:42-0500 BP Systolic 140 mm[Hg] Kailyn Looney [facility] 11-02-2018 11:42-0500 Height 165.1 cm Kailyn Looney [facility] 11-02-2018 11:42-0500 Pulse (Heart Rate) 80 /min Kailyn Looney [facility] 11-02-2018 11:42-0500 Pulse Oximetry 98 % Kailyn Looney [facility] 11-02-2018 11:42-0500 Weight 97.07 kg Kailyn Looney [facility] 10-28-2018 02:30-0500 BP Diastolic 90 mm[Hg] [facility] 10-28-2018 02:30-0500 BP Systolic 166 mm[Hg] Chetan [facility] 10-28-2018 02:30-0500 Pulse (Heart Rate) 83 /min [facility] 10-28-2018 02:30-0500 Pulse Oximetry 97 % [facility] 10-28-2018 02:30-0500 Respiratory Rate 14 /min [facility] 10-27-2018 22:34-0500 BMI (Body Mass Index) 34.45 kg/m2 [facility] 10-27-2018 22:34-0500 Body Temperature 99.3 [degF] Chetan [facility] 10-27-2018 22:34-0500 Height 165.1 cm Chetan [facility] 10-27-2018 22:34-0500 Weight 93.89 kg [facility] 10-27-2018 18:00-0500 BP Diastolic 99 mm[Hg] Leslie [facility] 10-27-2018 18:00-0500 BP Systolic 171 mm[Hg] [facility] 10-27-2018 18:00-0500 Pulse (Heart Rate) 77 /min [facility] 10-27-2018 18:00-0500 Pulse Oximetry 93 % [facility] 10-27-2018 17:30-0500 Respiratory Rate 16 /min [facility] 10-27-2018 15:56-0500 BMI (Body Mass Index) 35.53 kg/m2 [facility] 10-27-2018 15:56-0500 Body Temperature 98.01 [degF] Leslie Chung [facility] 10-27-2018 15:56-0500 Height 162.6 cm Leslie Chung [facility] 10-27-2018 15:56-0500 Weight 93.89 kg Leslie Chung [facility] 08-31-2018 10:36-0400 BMI (Body Mass Index) 35.01 kg/m2 Kailyn Looney [facility] 08-31-2018 10:36-0400 Body Temperature 98.71 [degF] [facility] 08-31-2018 10:36-0400 BP Diastolic 88 mm[Hg] [facility] 08-31-2018 10:36-0400 BP Systolic 144 mm[Hg] [facility] 08-31-2018 10:36-0400 Height 165.1 cm [facility] 08-31-2018 10:36-0400 Pulse (Heart Rate) 81 /min [facility] 08-31-2018 10:36-0400 Pulse Oximetry 94 % [facility] 08-31-2018 10:36-0400 Weight 95.44 kg [facility] 05-25-2018 09:03-0400 BMI (Body Mass Index) 36.44 kg/m2 [facility] 05-25-2018 09:03-0400 Body Temperature 98.91 [degF] [facility] 05-25-2018 09:03-0400 BP Diastolic 80 mm[Hg] [facility] 05-25-2018 09:03-0400 BP Systolic 128 mm[Hg] [facility] 05-25-2018 09:03-0400 Height 165.1 cm [facility] 05-25-2018 09:03-0400 Pulse (Heart Rate) 71 /min [facility] 05-25-2018 09:03-0400 Pulse Oximetry 98 % Kailyn Looney [facility] 05-25-2018 09:03-0400 Weight 99.34 kg Kailyn Looney [facility] 12-15-2017 09:18-0500 BMI (Body Mass Index) 34.45 kg/m2 [facility] Work Phone: 12-15-2017 09:18-0500 Body Temperature 98.01 [degF] [facility]: 12-15-2017 09:18-0500 BP Diastolic 86 mm[Hg] [facility] Work Phone: 12-15-2017 09:18-0500 BP Systolic 124 mm[Hg] [facility] Work Phone: 12-15-2017 09:18-0500 Height 165.1 cm [facility] Work Phone: 12-15-2017 09:18-0500 Pulse (Heart Rate) 71 /min [facility] Work Phone: 12-15-2017 09:18-0500 Pulse Oximetry 98 % [facility] Work Phone: 12-15-2017 09:18-0500 Weight 93.89 kg [facility] Work Phone: 11-13-2017 12:57-0500 BMI (Body Mass Index) 34.28 kg/m2 [facility] Work Phone: 11-13-2017 12:57-0500 Body Temperature 99.19 [degF] [facility] Work Phone: 11-13-2017 12:57-0500 BP Diastolic 80 mm[Hg] [facility] Work Phone: 11-13-2017 12:57-0500 BP Systolic 122 mm[Hg] [facility] Work Phone: 11-13-2017 12:57-0500 Height 165.1 cm [facility] Work Phone: 11-13-2017 12:57-0500 Pulse (Heart Rate) 76 /min [facility] Work Phone: 11-13-2017 12:57-0500 Pulse Oximetry 98 % [facility] Work Phone: 11-13-2017 12:57-0500 Weight 93.44 kg [facility] Work Phone: 08-18-2017 11:10-0400 BMI (Body Mass Index) 34.28 kg/m2 Kailyn Looney [facility] Work Phone: 08-18-2017 11:10-0400 Body Temperature 98.6 [degF] Kailyn Looney [facility] Work Phone: 08-18-2017 11:10-0400 BP Diastolic 80 mm[Hg] Kailyn Looney [facility] Work Phone: 08-18-2017 11:10-0400 BP Systolic 124 mm[Hg] Kailyn Looney [facility] Work Phone: 08-18-2017 11:10-0400 Height 165.1 cm Kailyn Looney [facility] Work Phone: 08-18-2017 11:10-0400 Pulse (Heart Rate) 79 /min Kailyn Looney [facility] Work Phone: 08-18-2017 11:10-0400 Pulse Oximetry 98 % Kailyn Looney [facility] Work Phone: 08-18-2017 11:10-0400 Weight 93.44 kg Kailyn Looney [facility] Work Phone: Encounters Encounter Date Encounter Type Care Provider Facility Start: 12-12-2022 [facility] Start: 01-19-2021 End: 01-19-2021 Orders Only Talita Jesus Work Phone: [facility] Start: 05-12-2020 End: 05-12-2020 Patient encounter procedure SANDRA ALVARADO MOMARKUS [facility] Start: 01-17-2020 Patient encounter procedure KAILYN LOONEY [facility] Start: 01-10-2020 End: 01-10-2020 Periodic preventive med est patient 40-64yrs Kailyn Pearson Fawn Work Phone: [facility] Procedures Date Procedure Procedure Detail Performing Clinician Start: 05-15-2020 Colonoscopy Talita hills Start: 08-16-2019 Ct maxillofacial w/o contrast material Gil Duran Work Phone: Start: 08-16-2019 Urinalysis macro (dipstick) panel - Urine Kailyn Pearson Fawn Work Phone: Start: 01-11-2019 Adult depression scr eening assessment Kailyn Looney Start: 10-28-2018 End: 10-28-2018 Ct angiography chest w/contrast/noncontrast Jace Collado Work Phone: Start: 10-27-2018 End: 10-27-2018 Hepatic function 2000 panel - Serum or Plasma Jace Collado Work Phone: Start: 10-27-2018 End: 10-27-2018 INR in Platelet poor plasma by Coagulation assay Jace Collado Work Phone: Start: 10-27-2018 End: 10-27-2018 Lipase [Enzymatic activity/volume] in Serum or Plasma Jace Collado Work Phone: Start: 10-27-2018 End: 10-27-2018 Troponin measurement Jace Collado Work Phone: Start: 10-27-2018 End: 10-27-2018 12 lead ECG Leslie Chung Work Phone: Start: 10-27-2018 End: 10-27-2018 CT of urinary tract Leslie Chung Work Phone: Start: 10-27-2018 End: 10-27-2018 Urinalysis Leslie Chung Work Phone: Start: 10-27-2018 End: 10-27-2018 Basic metabolic 2000 panel - Serum or Plasma Leslie Chung Work Phone: Start: 10-27-2018 End: 10-27-2018 Complete blood count with white cell differential, automated Leslie Chung Work Phone: Start: 10-27-2018 End: 10-27-2018 Complete blood count with white cell differential, manual Leslie Chung Work Phone: Start: 10-27-2018 End: 10-27-2018 WALDRON TOP Alysa K Lurye Work Phone: Start: 10-27-2018 End: 10-27-2018 LAVENDER TOP Alysa K Lurye Work Phone: Start: 10-27-2018 End: 10-27-2018 LIGHT BLUE TOP Alysa K Lurye Work Phone: Start: 10-27-2018 End: 10-27-2018 LIGHT GREEN TOP Alysa K Lurye Work Phone: Start: 10-27-2018 End: 10-27-2018 MINT GREEN TOP Alysa K Lurye Work Phone: Start: 10-27-2018 End: 10-27-2018 RAINBOW DRAW Alysa K Lurye Work Phone: Start: 12-15-2017 Adult depression scr eening assessment Leslie Sheldon Plan of Treatment Date Care Activity Detail Author Start: 05-15-2030 Screening for malignant neoplasm of colon [facility] Start: 01-16-2022 Prostate specific antigen measurement PSA Level [facility] Start: 01-09-2021 History and physical examination, annual for health maintenance Wellness Visit [facility] Start: 03-20-2020 End: 03-20-2020 Office Visit 03/20/2020 Office Visit Otolaryngology Gil Duran, DO [address] [place] [address] [phone] [facility] Start: 02-08-2020 Administration of herpes zoster vaccine Zoster Vaccines (1 of 2) [facility] Start: 02-08-2020 Screening for malignant neoplasm of colon [facility] Start: 01-12-2020 Depression screening using PHQ-9 (Patient Health Questionnaire 9) score DEPRESSION SCREENING (PHQ9) [facility] Start: 01-12-2020 Screening for substance abuse SUBSTANCE ABUSE SCREENING (AUDIT-C) [facility] Start: 01-10-2020 End: 01-10-2020 Office Visit 01/10/2020 Office Visit Primary Care Kailyn Looney, DO [address] [facility] [address] [place] [address] [phone] [facility] Start: 01-07-2020 End: 01-07-2020 Follow-Up 01/07/2020 Follow-Up Otolaryngology Gil Duran, DO [address] [facility] [address] [place] [address] [phone] [facility] Start: 12-31-2019 End: 12-31-2019 Follow-Up 12/31/2019 Follow-Up Otolaryngology Gil Duran, DO [address] [facility] [address] [place] [address] [phone] [facility] Start: 12-25-2019 End: 12-25-2019 Clinical Support 12/25/2019 Clinical Support Otolaryngology Janet Villaseñor AuD [facility] Start: 12-24-2019 End: 12-24-2019 Follow-Up 12/24/2019 Follow-Up Otolaryngology Gil Duran, DO [address] [facility] [address] [place] [address] [phone] [facility] Start: 12-17-2019 End: 12-17-2019 Follow-Up 12/17/2019 Follow-Up Otolaryngology Gil Duran, DO [address] [facility] [address] [place] [address] [phone] [facility] Start: 12-14-2019 History and physical examination, annual for health maintenance Wellness Visit [facility] Start: 12-13-2019 End: 12-13-2019 Follow-Up 12/13/2019 Follow-Up Otolaryngology Gil Duran, DO [address] [facility] [address] [place] [address] [phone] [facility] Start: 09-06-2019 End: 09-06-2019 Office Visit 09/06/2019 Office Visit Primary Care Kailyn Looney, DO [address] [facility] [address] [place] [address] [phone] [facility] Start: 08-23-2019 End: 08-23-2019 Office Visit 08/23/2019 Office Visit Otolaryngology Leslie Buck, DO [address] [facility] [address] [place] [address] [phone] [facility] Start: 08-02-2019 End: 08-02-2019 Office Visit 08/02/2019 Office Visit Otolaryngology Gil Duran, DO [address] [facility] [address] [place] [address] [phone] [facility] Start: 07-07-2019 Influenza vaccination given [facility] Start: 04-05-2019 End: 04-05-2019 Office Visit 04/05/2019 Office Visit Primary Care Kailyn Looney, DO [address] [facility] [address] [place] [address] [phone] [facility] Start: 02-22-2019 End: 02-22-2019 Office Visit 02/22/2019 Office Visit Primary Care Kailyn Looney, DO [address] [facility] [address] [place] [address] [phone] [facility] Start: 01-11-2019 End: 01-11-2019 Office Visit 01/11/2019 Office Visit Primary Care Kailyn Looney DO [address] [facility] [address] [place] [address] [phone] [facility] Start: 12-15-2018 Adult depression screening assessment DEPRESSION SCREENING (PHQ9) [facility] Start: 12-15-2018 Depression screening using PHQ-9 (Patient Health Questionnaire 9) score DEPRESSION SCREENING (PHQ9) [facility] Start: 12-15-2018 Screening for substance abuse SUBSTANCE ABUSE SCREENING (AUDIT-C) [facility] Start: 12-15-2018 SUBSTANCE ABUSE SCREENING (AUDIT-C) SUBSTANCE ABUSE SCREENING (AUDIT-C) [facility] Start: 12-14-2018 End: 12-14-2018 Ambulatory 12/14/2018 Office Visit Primary Care Kailyn Looney DO [address] [facility] [address] [place] [address] [phone] [facility] Start: 07-07-2018 Influenza vaccination SEQUENTIAL INFLUENZA VACCINE (#1) [facility] Start: 07-07-2018 Influenza vaccination given SEQUENTIAL INFLUENZA VACCINE (#1) [facility] Start: 07-07-2017 Influenza vaccination SEQUENTIAL INFLUENZA VACCINE (#1) [facility] Work Phone: Start: 02-08-1988 Hepatitis C antibody, confirmatory test Hepatitis C Screening [facility] Start: 1986 COVID-19 Vaccine (1 of 2) COVID-19 Vaccine (1 of 2) [facility] Start: 1985 HIV screening HIV Screening [facility] Start: 1982 Adolescent depression screening assessment Depression Screening (PHQ9) [facility] Start: 1970 Prostate specific antigen measurement PSA Level [facility] Start: 1970 Tetanus vaccination [facility] Work Phone: End: 08-16-2020 Bacteria identified Aer cx Nom (Unsp spec) Urine Aerobic Culture Microbiology Routine Urinary frequency 1 Occurrences starting 08/16/2019 until 08/16/2020 [facility] Immunizations Immunization Date Immunization Notes Care Provider Fa cility 08-13-2019 Influenza, injectabl e, Madin Heather Canine Kidney, preservative free, quadrivalent Gil Duran [facility] 07-19-2019 hepatitis A vaccine, adult dosage Abbie ireland Cocumerajni [facility] 07-19-2019 hepatitis A vaccine, unspecified formulation Kailyn Looney [facility] 02-15-2019 hepatitis A vaccine, adult dosage Abbie ireland Cocumerajni [facility] 01-16-2019 hepatitis A vaccine, adult dosage Prince Duran [facility] 08-18-2017 influenza, injectabl e, quadrivalent, preservative free Gil Klapchar [facility] 07-26-2016 influenza, injectabl e, quadrivalent, preservative free Gil Klapchar [facility] Payers Date Payer Category Payer Unknown [id number] 2015 Unknown xxxxxxxxx [id number] 2015 Unknown [facility]/EFREM/EFREM PLUS [id number] 2015-Present [id number] 1970 Unknown [id number] 1970 Unknown [id number] 1970 Unknown [id number] 1970 Unknown [id number] 1970 Unknown [id number] 1970 Unknown [id number] 1970 Unknown [id number] Social History Date Type Detail Facility Start: 12-15-2017 End: 08-16-2019 Tobacco smoking status NHIS Never smoker [facility] Work Phone: Sex Assigned At Not on file [facility] Work Phone: Start: 01-01-2016 Alcohol Comment rare [facility] Start: 07-19-2019 End: 08-16-2019 Alcohol intake Current drinker of alcohol (finding) [facility] Start: 07-19-2019 History SDOH Social Connections Phone 5 [facility] Start: 07-19-2019 History SDOH Food Worry 1 [facility] Start: 08-28-2020 Tobacco use and exposure Never used [facility] Medical Equipment Procedure Code Equipment Code Equipment Origin al Text Equipment Identifier Dates Hemostat 4 X 8in Surgicel - Sn/A [id number] Start: 12-11-2019 Assessments Note Patient: VINH COLBY RN: [phone] Age: 50 years Sex: Male : 1970 Associated Diagnoses: None Author: Austin Zavala DO Supervising Physician Comments GENERAL SURGERY PROGRESS NOTE SUBJECTIVE: Patient doing very well overnight. Continuing to have bowel function. Did not require any IV pain medications. OBJECTIVE: VS, AF, RA Vital Signs (Past 36 Hours) Last Charted Minimum Maximum Temperature 98.4 (09/27 00:20) 98.2 (09/26 15:00) 98.9 (09/26 03:25) Pulse 86 (09/27 07:56) 79 (09/26 02:44) 93 (09/26 15:00) Resp 16 (09/27 07:56) 16 (09/27 07:56) 16 (09/27 07:56) Pulse Ox 94 (09/27 07:56) 91 (09/26 07:48) 94 (09/27 07:56) Pain Score 5 (09/26 19:55) 5 (09/26 19:55) 5 (09/26 19:55) BP 165/118 (09/27 00:20) Minimum Maximum Systolic BP 144/82 (09/26 15:00) 165/118 (09/27 00:20) Diastolic BP 144/82 (09/26 15:00) 165/118 (09/27 00:20) UOP: voiding 600 / 400 NG: removed RUTHY R (retrorectus): - (SS) RUTHY L (subq): - (SS) PHYSICAL EXAM: GEN: (more content not included)... Diagnosis Physical exam - Primary Unspecified general medical examination Lipid screening Screening for lipoid disorders Diabetes mellitus screening Screening for diabetes mellitus Diagnosis Influenza A - Primary Influenza with other respiratory manifestations Fever, unspecified fever cau se Myalgia Unspecified myalgia and myositis Diagnosis Sinobronchitis - Primary Hypertension, essential Unspecified essential hypertension Hypertriglyceridemia Pure hyperglyceridemia Diagnosis Hypertension, essential - Pr imary Unspecified essential hypertension Hypertriglyceridemia Pure hyperglyceridemia Erectile dysfunction, unspec ified erectile dysfunction type Diagnosis Hypertension, essential - Pr imary Unspecified essential hypertension Erectile dysfunction, unspec ified erectile dysfunction type Hypertriglyceridemia Pure hyperglyceridemia Androgen deficiency Other testicular hypofunction Diagnosis Left flank pain- Primary Abdominal pain, unspecified site Elevated blood pressure reading Elevated blood pressure reading without diagnosis of hypertension Hypertension, unspecified type Diagnosis Musculoskeletal back pain- Primary Diagnosis Acute left-sided low back pain without sciatica- Primary Hypertension, essential Unspecified essential hypertension Diagnosis Physical exam- Primary Unspecified general medical examination Diabetes mellitus screening Screening for diabetes mellitus Prostate cancer screening Special screening for malignant neoplasm of prostate Lipid screening Screening for lipoid disorders Medication side effect Hypertension, essential Unspecified essential hypertension Diagnosis Elevated blood pressure reading in office with diagnosis of hypertension- Primary Witnessed episode of apnea Habitual snoring Diagnosis Elevated blood pressure reading with diagnosis of hypertension Diagnosis Hypertension, essential- Primary Unspecified essential hypertension Erectile dysfunction, unspecified erectile dysfunction type Diagnosis Hypertension, essential- Primary Unspecified essential hypertension Trigger middle finger of left hand Hypertriglyceridemia Pure hyperglyceridemia Need for hepatitis A immunization Diagnosis DNS (deviated nasal septum) Deviated nasal septum Hypertrophy of both inferior nasal turbinates Nasal obstruction without choanal atresia Other diseases of nasal cavity and sinuses Diagnosis Acute post-operative pain Nasal obstruction without choanal atresia Other diseases of nasal cavity and sinuses Deviated septum Deviated nasal septum Injury of nose, sequela Hypertrophy of both inferior nasal turbinates Diagnosis DNS (deviated nasal septum) Deviated nasal septum Hypertrophy of both inferior nasal turbinates Nasal obstruction without choanal atresia Other diseases of nasal cavity and sinuses History of nasal septoplasty Other postprocedural status Diagnosis Hypertrophy of both inferior nasal turbinates Nasal obstruction without choanal atresia Other diseases of nasal cavity and sinuses History of nasal septoplasty Other postprocedural status Diagnosis Hypertrophy of both inferior nasal turbinates Nasal obstruction without choanal atresia Other diseases of nasal cavity and sinuses History of nasal septoplasty Other postprocedural status Chronic rhinitis Diagnosis Physical exam Unspecified general medical examination Diabetes mellitus screening Screening for diabetes mellitus Lipid screening Screening for lipoid disorders Prostate cancer screening Special screening for malignant neoplasm of prostate Diagnosis Erectile dysfunction, unspecified erectile dysfunction type- Primary Urinary frequency Hypertension, essential Unspecified essential hypertension Hypertriglyceridemia Pure hyperglyceridemia Androgen deficiency Other testicular hypofunction Motion sickness, initial encounter Diagnosis Deviated nasal septum Chronic sinusitis, unspecified location Discharge Instructions * Leslie Chung, DO - 10/27/2018 Formatting of this note may be different from the original. We do not have a clear etiology for your pain at this time. You need to return in the next 8-24 hours if you continue to have pain. Return immediately if you start to have any fevers, intractable vomiting, change in the quality or severity of you pain. Follow up with your primary care provider regardless of if your symptoms improve or not. Flank Pain: Care Instructions Your Care Instructions Flank pain is pain on the side of the back just below the rib cage and above the waist. It can be on one or both sides. Flank pain has many possible causes, including a kidney stone, a urinary tract infection, or back strain. Flank pain may get better on its own. But don't ignore new symptoms, such as fever, nausea and vomiting, urination problems, pain that gets worse, and dizziness. These may be signs of a more serious problem. You may have to have tests or other treatment. Follow-up care is a sanchez part of your treatment and safety. Be sure to make and go to all appointments, and call your doctor if you are having problems. It's also a good idea to know your test resultsand keep a list of the medicines you take. How can you care for yourself at home? Rest until you feel better. Take pain medicines exactly as directed. ? If the doctor gave you a prescription medicine for pain, take it as prescribed. ? If you are not taking a prescription pain medicine, ask your doctor if you can take an tudq-fns-lyoitff pain medicine, such as acetaminophen (Tylenol), ibuprofen (Advil, Motrin), or naproxen (Aleve). Read and follow all instructions on the label. If your doctor prescribed antibiotics, take them as directed. Do not stop taking them just because you feel better. You need to take the full course of antibiotics. To apply heat, put a warm water bottle, a heating pad set on low, or a warm cloth on the painful area. Do not go to sleep with a heating pad on your skin. To prevent dehydration, drink plenty of fluids, enough so that your urine is light yellow or clear like water. Choose water and other caffeine-free clear liquids until you feel better. If you have kidney, heart, or liver disease and have to limit fluids, talk with your doctor before you increase the amount of fluids you drink. When should you call for help? Call your doctor now or seek immediate medical care if: Your flank pain gets worse. You have new symptoms, such as fever, nausea, or vomiting. You have symptoms of a urinary problem. For example: ? You have blood or pus in your urine. ? You have chills or body aches. ? It hurts to urinate. ? You have groin or belly pain. Watch closely for changes in your health, and be sure to contact your doctor if you do not get better as expected. Where can you learn more? Log into your personal health record on https://Skedot.Trevena and enter S191 in the Education box to learn more about Flank Pain: Care Instructions. Current as of: July 29, 2018 Content Version: 11.9 7896-4761 [employer]. Care instructions adapted under license by your healthcare professional. If you have questions about a medical condition or this instruction, always ask your healthcare professional. [employer] disclaims any warranty or liability for your use of this information. in this encounter* Jace Collado, DO - 10/28/2018 Formatting of this note may be different from the original. Back Pain: Care Instructions Your Care Instructions Back pain has many possible causes. It is often related to problems with muscles and ligaments of the back. It may also be related to problems with the nerves, discs, or bones of the back. Moving, lifting, standing, sitting, or sleeping in an awkward way can strain the back. Sometimes you don't notice the injury until later. Arthritis is another common cause of back pain. Although it may hurt a lot, back pain usually improves on its own within several weeks. Most peoplerecover in 12 weeks or less. Using good home treatment and being careful not to stress your back can help you feel better sooner. Follow-up care is a sanchez part of your treatment and safety. Be sure to make and go to all appointments, and call your doctor if you are having problems. It's also a good idea to know your test resultsand keep a list of the medicines you take. How can you care for yourself at home? Sit or lie in positions that are most comfortable and reduce your pain. Try one of these positions when you lie down: ? Lie on your back with your knees bent and supported by large pillows. ? Lie on the floor with your legs on the seat of a sofa or chair. ? Lie on your side with your knees and hips bent and a pillow between your legs. ? Lie on your stomach if it does not make pain worse. Do not sit up in bed, and avoid soft couches and twisted positions. Bed rest can help relieve pain at first, but it delays healing. Avoid bed rest after the first day of back pain. Change positions every 30 minutes. If you must sit for long periods of time, take breaks from sitting. Get up and walk around, or lie in a comfortable position. Try using a heating pad on a low or medium setting for 15 to 20 minutes every 2 or 3 hours. Try a warm shower in place of one session with the heating pad. You can also try an ice pack for 10 to 15 minutes every 2 to 3 hours. Put a thin cloth between the ice pack and your skin. Take pain medicines exactly as directed. ? If the doctor gave you a prescription medicine for pain, take it as prescribed. ? If you are not taking a prescription pain medicine, ask your doctor if you can take an qnzg-oos-iyguurd medicine. Take short walks several times a day. You can start with 5 to 10 minutes, 3 or 4 times a day, and work up to longer walks. Walk on level surfaces and avoid hills and stairs until your back is better. Return to work and other activities as soon as you can. Continued rest without activity is usually not good for your back. To prevent future back pain, do exercises to stretch and strengthen your back and stomach. Learn how to use good posture, safe lifting techniques, and proper body mechanics. When should you call for help? Call your doctor now or seek immediate medical care if: You have new or worsening numbness in your legs. You have new or worsening weakness in your legs. (This could make it hard to stand up.) You lose control of your bladder or bowels. Watch closely for changes in your health, and be sure to contact your doctor if: You have a fever, lose weight, or don't feel well. You do not get better as expected. Where can you learn more? Log into your personal health record on https://Skedot.Trevena and enter I594 in the Education box to learn more about Back Pain: Care Instructions. Current as of: July 26, 2018 Content Version: .[id number] [employer]. Care instructions adapted under license by your healthcare professional. If you have questions about a medical condition or this instruction, always ask your healthcare professional. [employer] disclaims any warranty or liability for your use of this information. Back Stretches: Exercises Your Care Instructions Here are some examples of exercises for stretching your back. Start each exercise slowly. Ease off the exercise if you start to have pain. Your doctor or physical therapist will tell you when you can start these exercises and which ones will work best for you. How to do the exercises Overhead stretch 1. Stand comfortably with your feet shoulder-width apart. 2. Looking straight ahead, raise both arms over your head and reach toward the ceiling. Do not allow your head to tilt back. 3. Hold for 15 to 30 seconds, then lower your arms to your sides. 4. Repeat 2 to 4 times. Side stretch 1. Stand comfortably with your feet shoulder-width apart. 2. Raise one arm over your head, and then lean to the other side. 3. Slide your hand down your leg as you let the weight of your arm gently stretch your side muscles. Hold for 15 to 30 seconds. 4. Repeat 2 to 4 times on each side. Press-up 1. Lie on your stomach, supporting your body with your forearms. 2. Press your elbows down into the floor to raise your upper back. As you do this, relax your stomach muscles and allow your back to arch without using your back muscles. As your press up, do not letyour hips or pelvis come off the floor. 3. Hold for 15 to 30 seconds, then relax. 4. Repeat 2 to 4 times. Relax and rest 1. Lie on your back with a rolled towel under your neck and a pillow under your knees. Extend your arms comfortably to your sides. 2. Relax and breathe normally. 3. Remain in this position for about 10 minutes. 4. If you can, do this 2 or 3 times each day. Follow-up care is a sanchez part of your treatment and safety. Be sure to make and go to all appointments, and call your doctor if you are having problems. It's also a good idea to know your test resultsand keep a list of the medicines you take. Where can you learn more? Log into your personal health record on https://Mippin.[employer]vena and enter Y090 in the Education box to learn more about Back Stretches: Exercises. Current as of: July 26, 2018 Content Version: 11.9 3648-0816 [employer]. Care instructions adapted under license by your healthcare professional. If you have questions about a medical condition or this instruction, always ask your healthcare professional. [employer] disclaims any warranty or liability for your use of this information. in this encounter* Discharge Instr - Other Orders* Shahrzad Mcbride RN - 12/11/2019 2:07 PM EST GENERAL POST-OPERATIVE PATIENT INSTRUCTIONS ANESTHESIA PRECAUTIONS: A responsible adult must stay with you for at least 24 hours after surgery. You may feel light headed,, dizzy, or nauseated during this time. Do not operate a vehicle (car, bike, motorcycle, senior cognos developer) machinery or power tools. Do not make any important decisions or drink any alcoholic beverages for 24 hours. Children should remain quiet today. No riding of bicycles, motorcycles, skateboards, playing on swings etc. Drink plenty of fluids today. Eat a light meal. Resume regular diet tomorrow. FOLLOW-UP: Please make an appointment with your physician for follow-up. Call your physician immediately if you have any fevers greater than 101, drainage from your wound that is not clear or looks infected, persistent bleeding, increasing abdominal pain, problems urinating, or persistent nausea/vomiting. DIET: You may eat any foods that you can tolerate. It is a good idea to eat a high fiber diet and take in plenty of fluids to prevent constipation. If you do become constipated you may want to take amild laxative or take ducolax tablets on a daily basis until your bowel habits are regular. Constipation can be very uncomfortable, along with straining, after recent surgery. ACTIVITY: You are encouraged to cough and deep breath or use your incentive spirometer if you were given one, every 15-30 minutes when awake. This will help prevent respiratory complications and low grade fevers post-operatively if you had a general anesthetic. You are encouraged to walk and engagein light activity for the next two weeks. MEDICATIONS: Try to take narcotic medications and anti-inflammatory medications, such as ibuprofen,naprosyn, etc., with food. This will minimize stomach upset from the medication. Should you developnausea and vomiting from the pain medication, or develop a rash, please discontinue the medication and contact your physician. You should not drive, make important decisions, or operate machinery when taking narcotic pain medication. Do not take tylenol or tylenol products with narcotic medications. QUESTIONS: Please feel free to call your physician or the hospital valve seater operator if you have any questions, and they will be glad to assist you. * Additional Instructions* Margoth Duran, DO - 12/11/2019 Nasal / Sinus Surgery Patient Instructions: Light activity x 14 days. No heavy lifting (nothing over 10 pounds) . No Aspirin, ibuprofen, Motrin, Advil, Aleve, naprosyn. Do not blow your nose until instructed to do so (1-2 weeks). Sneeze with your mouth open until then. Sleep in an elevated position for 2 nights postoperatively if you can. Please use nasal saline 2-3 sprays to both nostrils 4 times daily until follow up. Please use Afrin (oxymetazoline) nasal spray, 2 sprays to each nostril twice daily for 3 days postoperatively. Use mupirocin (Bactroban) ointment in your nostrils twice daily. Change a drip pad as needed for drainage. Your splints will be removed in office at your SECOND follow up appointment. Discomfort improved greatly once splints are removed. Future Appointments Date Time Provider Department Center 12/13/2019 9:15 AM Gil Sandro Rossalidar, DO [facility] 12/17/2019 9:15 AM Gil Harrisonr, DO [facility] 12/24/2019 9:15 AM Gil Sandro Rossalidar, DO [facility] 12/31/2019 9:15 AM Gil Rosschar, DO [facility] documented in this encounter Instructions * Patient Instructions - Kailyn Looney, - 11/02/2018 12:27 PM EST Low Back Pain: Exercises Your Care Instructions Here are some examples of typical rehabilitation exercises for your condition. Start each exercise slowly. Ease off the exercise if you start to have pain. Your doctor or physical therapist will tell you when you can start these exercises and which ones will work best for you. How to do the exercises Press-up 1. Lie on your stomach, supporting your body with your forearms. 2. Press your elbows down into the floor to raise your upper back. As you do this, relax your stomach muscles and allow your back to arch without using your back muscles. As your press up, do not letyour hips or pelvis come off the floor. 3. Hold for 15 to 30 seconds, then relax. 4. Repeat 2 to 4 times. Alternate arm and leg (bird dog) exercise 1. Start on the floor, on your hands and knees. 2. Tighten your belly muscles. 3. Raise one leg off the floor, and hold it straight out behind you. Be careful not to let your hipdrop down, because that will twist your trunk. 4. Hold for about 6 seconds, then lower your leg and switch to the other leg. 5. Repeat 8 to 12 times on each leg. 6. Over time, work up to holding for 10 to 30 seconds each time. 7. If you feel stable and secure with your leg raised, try raising the opposite arm straight out infront of you at the same time. [id number]-[id number] exercise 1. Lie on your back with your knees bent and your feet flat on the floor. 2. Bring one knee to your chest, keeping the other foot flat on the floor (or keeping the other legstraight, whichever feels better on your lower back). 3. Keep your lower back pressed to the floor. Hold for at least 15 to 30 seconds. 4. Relax, and lower the knee to the starting position. 5. Repeat with the other leg. Repeat 2 to 4 times with each leg. 6. To get more stretch, put your other leg flat on the floor while pulling your knee to your chest. Curl-ups 1. Lie on the floor on your back with your knees bent at a 90-degree angle. Your feet should be flat on the floor, about 12 inches from your buttocks. 2. Cross your arms over your chest. If this bothers your neck, try putting your hands behind your neck (not your head), with your elbows spread apart. 3. Slowly tighten your belly muscles and raise your shoulder blades off the floor. 4. Keep your head in line with your body, and do not press your chin to your chest. 5. Hold this position for 1 or 2 seconds, then slowly lower yourself back down to the floor. 6. Repeat 8 to 12 times. Pelvic tilt exercise 1. Lie on your back with your knees bent. 2. Brace your stomach. This means to tighten your muscles by pulling in and imagining your belly button moving toward your spine. You should feel like your back is pressing to the floor and your hips and pelvis are rocking back. 3. Hold for about 6 seconds while you breathe smoothly. 4. Repeat 8 to 12 times. Heel dig bridging 1. Lie on your back with both knees bent and your ankles bent so that only your heels are digging into the floor. Your knees should be bent about 90 degrees. 2. Then push your heels into the floor, squeeze your buttocks, and lift your hips off the floor until your shoulders, hips, and knees are all in a straight line. 3. Hold for about 6 seconds as you continue to breathe normally, and then slowly lower your hips back down to the floor and rest for up to 10 seconds. 4. Do 8 to 12 repetitions. Hamstring stretch in doorway 1. Lie on your back in a doorway, with one leg through the open door. 2. Slide your leg up the wall to straighten your knee. You should feel a gentle stretch down the back of your leg. 3. Hold the stretch for at least 15 to 30 seconds. Do not arch your back, point your toes, or bend either knee. Keep one heel touching the floor and the other heel touching the wall. 4. Repeat with your other leg. 5. Do 2 to 4 times for each leg. Hip flexor stretch 1. Kneel on the floor with one knee bent and one leg behind you. Place your forward knee over your foot. Keep your other knee touching the floor. 2. Slowly push your hips forward until you feel a stretch in the upper thigh of your rear leg. 3. Hold the stretch for at least 15 to 30 seconds. Repeat with your other leg. 4. Do 2 to 4 times on each side. Wall sit 1. Stand with your back 10 to 12 inches away from a wall. 2. Lean into the wall until your back is flat against it. 3. Slowly slide down until your knees are slightly bent, pressing your lower back into the wall. 4. Hold for about 6 seconds, then slide back up the wall. 5. Repeat 8 to 12 times. Follow-up care is a sanchez part of your treatment and safety. Be sure to make and go to all appointments, and call your doctor if you are having problems. It's also a good idea to know your test resultsand keep a list of the medicines you take. Where can you learn more? Log into your personal health record on [email or web address] and enter Z938 in the Education box to learn more about Low Back Pain: Exercises. Current as of: July 26, 2018 Content Version: 11.9 5259-9316 [employer]. Care instructions adapted under license by your healthcare professional. If you have questions about a medical condition or this instruction, always ask your healthcare professional. [employer] disclaims any warranty or liability for your use of this information. in this encounter History of Present Illness * Kailyn Looney, - 11/02/2018 11:54 AM EST Formatting of this note may be different from the original. Subjective: Patient ID: Vinh Colby is a 48 y.o. male. Back Pain This is a new problem. Episode onset: one week ago. The problem occurs daily. Progression since onset: Slightly improved. Patient was seen twice in the ER. Pain location: Left lower lumbar area. The quality of the pain is described as aching and stabbing. The pain does not radiate. The pain is severe. Exacerbated by: Hurts all the time. Worse with any movement. Pertinent negatives include no abdominal pain, bladder incontinence, bowel incontinence, chest pain, dysuria, headaches, numbness, tingling or weakness. 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 He has tried muscle relaxant and NSAIDs for the symptoms. The treatment provided no relief. Hypertension This is a chronic problem. The current episode started more than 1 year ago. Pertinent negatives include no chest pain, headaches, palpitations, peripheral edema or shortness of breath. Risk factors for coronary artery disease include family history, dyslipidemia and male gender. Treatments tried: patient is currently on lisinopril 20 mg daily. The current treatment provides significant improvement. There are no compliance problems. Erectile Dysfunction This is a chronic problem. The current episode started more than 1 year ago. Progression since onset: Improved since starting the Viagra. Has found that at times he does not need the medication. The nature of his difficulty is achieving erection and maintaining erection. Non-physiologic factors contributing to erectile dysfunction are performance anxiety. Irritative symptoms do not include frequency or urgency. Pertinent negatives include no dysuria or hematuria. Past treatments include sildenafil. Social History Substance Use Topics Smoking status: Never Smoker Smokeless tobacco: Never Used Alcohol use Yes Comment: rare Family History Problem Relation Age of Onset COPD Mother Coronary artery disease Mother at 66 [place] No Known Allergies The following portions of the patient's history were reviewed and updated as appropriate: allergies, current medications, past family history, past medical history, past social history, past surgicalhistory and problem list. Review of Systems Constitutional: Positive for activity change. Respiratory: Negative for cough and shortness of breath. Cardiovascular: Negative for chest pain, palpitations and leg swelling. Gastrointestinal: Negative for abdominal pain and bowel incontinence. Genitourinary: Negative for bladder incontinence, dysuria, flank pain, frequency, hematuria and urgency. ED improved with medication Musculoskeletal: Positive for back pain. Skin: Negative for rash. Neurological: Negative for tingling, weakness, numbness and headaches. Objective: BP (!) 140/100 Pulse 80 Temp 99.2 F (37.3 C) Ht 5' 5 Wt 97.1 kg (214 lb) SpO2 98% BMI 35.61 kg/m Physical Exam Constitutional: He is cooperative. He appears distressed (from the back pain). Cardiovascular: Pulses: Dorsalis pedis pulses are 2+ on the right side, and 2+ on the left side. Posterior tibial pulses are 2+ on the right side, and 2+ on the left side. Musculoskeletal: He exhibits no edema. Right hip: Tenderness: negative FABERE sign Left hip: Tenderness: negative FABERE sign Lumbar back: He exhibits decreased range of motion, tenderness and spasm ( Regarding spasm). He exhibits no bony tenderness and no swelling. Back: Level PSIS Restricted pelvic and sacral motion Tight hamstrings bilaterally Neurological: Reflex Scores: Patellar reflexes are 2+ on the right side and 2+ on the left side. Achilles reflexes are 2+ on the right side and 2+ on the left side. Heel and toe walk normal bilaterally EHL 5/5 bilaterally SLR negative bilaterally Skin: No rash ( on the back) noted. Assessment/Plan: Diagnoses and all orders for this visit: Acute left-sided low back pain without sciatica - predniSONE (DELTASONE) 10 MG tablet; 4x2d then 3x2d then 2x2d then 1x2d . - methocarbamol (ROBAXIN) 750 MG tablet; Take 1 (one) tablet (750 mg total) by mouth 2 (two) times a day as needed for muscle spasms . Hypertension, essential - lisinopril (PRINIVIL,ZESTRIL) 20 MG tablet; Take 1 (one) tablet (20 mg total) by mouth daily . For any new medications prescribed today, patient was educated about indications for the medication, how to take the medication and potential side effects of the medications. This note was generated using [employer] voice recognition software in an effort to expedite communication. Please excuse results in grammatical or wording errors. in this encounter* Kailyn Looney DO - 12/14/2018 7:52 AM EST Subjective: Patient ID: Vinh Colby is a 48 y.o. male. Physical exam HPI: Patient presents today for annual physical exam. He states that he is doing well. He tries to eat a healthy diet. He exercises regularly playing his drums. He is no longer playing hockey. He feels that he sleeps well. He states that he has been having a persistent dry, hacking nonproductive cough blood pressure readings have been high and they have been high at the [facility]. Social History Tobacco Use Smoking status: Never Smoker Smokeless tobacco: Never Used Substance Use Topics Alcohol use: Yes Comment: rare Drug use: No Family History Problem Relation Age of Onset COPD Mother Coronary artery disease Mother at 66 [place] No Known Allergies The following portions of the patient's history were reviewed and updated as appropriate: allergies, current medications, past family history, past medical history, past social history, past surgicalhistory and problem list. Review of Systems Constitutional: Negative for activity change, fatigue and unexpected weight change. HENT: Positive for tinnitus (mild intermittant). Negative for congestion, hearing loss, nosebleeds,rhinorrhea and trouble swallowing. Eyes: Negative for visual disturbance. Respiratory: Positive for cough. Negative for shortness of breath and wheezing. Cardiovascular: Negative for chest pain, palpitations and leg swelling. Gastrointestinal: Negative for abdominal pain, blood in stool, constipation and diarrhea. Endocrine: Negative for cold intolerance, heat intolerance, polydipsia and polyuria. Genitourinary: Negative for difficulty urinating, dysuria, frequency, hematuria and urgency. Musculoskeletal: Negative for arthralgias, back pain, joint swelling and myalgias. Skin: Negative for rash. Allergic/Immunologic: Negative for environmental allergies and food allergies. Neurological: Negative for dizziness, weakness, numbness and headaches. Hematological: Does not bruise/bleed easily. Psychiatric/Behavioral: Negative for dysphoric mood and sleep disturbance. The patient is not nervous/anxious. Objective: BP (!) 144/100 Pulse 67 Temp 97.6 F (36.4 C) Ht 5' 5 Wt 97.5 kg (215 lb) SpO2 98% BMI 35.78 kg/m Physical Exam Constitutional: He appears well-developed and well-nourished. He is cooperative. No distress. HENT: Head: Normocephalic. Right Ear: Tympanic membrane, external ear and ear canal normal. No tenderness. Left Ear: Tympanic membrane, external ear and ear canal normal. No tenderness. Nose: No mucosal edema or rhinorrhea. Mouth/Throat: Oropharynx is clear and moist and mucous membranes are normal. Eyes: Pupils are equal, round, and reactive to light. Conjunctivae and EOM are normal. Neck: Neck supple. Normal carotid pulses present. No muscular tenderness present. Carotid bruit is not present. No tracheal deviation present. No thyromegaly present. Cardiovascular: Normal rate, regular rhythm, normal heart sounds and intact distal pulses. No murmur heard. Pulmonary/Chest: Breath sounds normal. He has no wheezes. He has no rhonchi. Abdominal: Soft. Bowel sounds are normal. There is no tenderness. There is no CVA tenderness. No hernia. Hernia confirmed negative in the right inguinal area and confirmed negative in the left inguinal area. Genitourinary: Rectal exam shows guaiac negative stool. Prostate is not enlarged (Prostate is smooth, nonnodular) and not tender. Right testis shows no mass and no tenderness. Genitourinary Comments: Left testicle is absent. Removed for testicular cancer in 2004. Musculoskeletal: He exhibits no edema or tenderness. Lymphadenopathy: He has no cervical adenopathy. Right: No supraclavicular adenopathy present. Left: No supraclavicular adenopathy present. Neurological: He is alert. He has normal strength and normal reflexes. No cranial nerve deficit. Skin: Skin is warm and dry. No rash noted. Psychiatric: He has a normal mood and affect. Assessment/Plan: Diagnoses and all orders for this visit: Physical exam - CBC and Differential; Future - Comprehensive Metabolic Panel; Future Diabetes mellitus screening - Hemoglobin A1c; Future Prostate cancer screening Lipid screening - Lipid Panel; Future Medication side effect Hypertension, essential - telmisartan (MICARDIS) 40 MG tablet; Take 1 (one) tablet (40 mg total) by mouth daily . - Patient to follow-up in 1 month. He will continue home blood pressure readings and bring his monitor into the office at the next visit For any new medications prescribed today, patient was educated about indications for the medication, how to take the medication and potential side effects of the medications. This note was generated using [employer] voice recognition software in an effort to expedite communication. Please excuse results in grammatical or wording errors. in this encounter* Kailyn Looney DO - 01/11/2019 1:57 PM EST Subjective: Patient ID: Vinh Colby is a 48 y.o. male. Hypertension HPI: Patient presents today in follow-up regarding his blood pressure. He did get a blood pressure unit and has 2 sizes of coughs. Comparing office unit with the patient unit they seem to be very close and readings. Patient states that he was getting very frustrated because his blood pressure was not in a normal range so he stopped taking them recently. He has been taking his telmisartan 40 mg evelyn ly. He denies any headache, dizziness, chest pain, palpitations or shortness of breath. He is continued to remain active and exercise regularly. Snoring HPI: Patient states that he has been told he is a very loud snorer and there has been episodes of witnessed apnea. We discussed that if he did have sleep apnea it certainly could be contributing to his blood pressure problems. He however states that he feels he sleeps well and does feel rested in the morning. Social History Tobacco Use Smoking status: Never Smoker Smokeless tobacco: Never Used Substance Use Topics Alcohol use: Yes Comment: rare Drug use: No Family History Problem Relation Age of Onset COPD Mother Coronary artery disease Mother at 66 [place] No Known Allergies The following portions of the patient's history were reviewed and updated as appropriate: allergies, current medications, past family history, past medical history, past social history, past surgicalhistory and problem list. Review of Systems Constitutional: Negative for activity change, diaphoresis and fatigue. Eyes: Negative for visual disturbance. Respiratory: Negative for apnea, cough, shortness of breath and wheezing. Cardiovascular: Negative for chest pain, palpitations and leg swelling. Gastrointestinal: Negative for abdominal pain. Neurological: Negative for dizziness, weakness and headaches. Psychiatric/Behavioral: Negative for decreased concentration and dysphoric mood. Sleep disturbance:Possible sleep apnea. The patient is not nervous/anxious. Objective: BP (!) 154/100 Pulse 84 Temp 97.6 F (36.4 C) Ht 5' 5 Wt 95.7 kg (211 lb) SpO2 98% BMI 35.11 kg/m Physical Exam Constitutional: He is cooperative. No distress. Neck: Neck supple. No muscular tenderness present. Carotid bruit is not present. No tracheal deviation present. No thyromegaly present. Cardiovascular: Normal rate, regular rhythm and normal heart sounds. No murmur heard. Pulmonary/Chest: Effort normal and breath sounds normal. He has no wheezes. Musculoskeletal: He exhibits no edema. Lymphadenopathy: He has no cervical adenopathy. Right: No supraclavicular adenopathy present. Left: No supraclavicular adenopathy present. Psychiatric: He has a normal mood and affect. Assessment/Plan: Diagnoses and all orders for this visit: Elevated blood pressure reading in office with diagnosis of hypertension - hydroCHLOROthiazide (MICROZIDE) 12.5 mg capsule; Take 1 (one) capsule (12.5 mg total) by mouth daily . Witnessed episode of apnea - Ambulatory referral to Sleep Medicine; Future Habitual snoring - Ambulatory referral to Sleep Medicine; Future Patient to follow-up in 1 month Over 50% of this 30-minute visit was spent in counseling, education and coordination of care. We discussed GARETT, GARETT treatment and testing. We also discussed medication and medication side effects. For any new medications prescribed today, patient was educated about indications for the medication, how to take the medication and potential side effects of the medications. This note was generated using [employer] voice recognition software in an effort to expedite communication. Please excuse results in grammatical or wording errors. * Kailyn Looney DO - 01/11/2019 8:40 AM EST Depression Screening 12/15/2017 01/11/2019 Little interest or pleasure in doing things - 0 Feeling down, depressed, or hopeless - 0 PHQ-2 Total Score - 0 Trouble falling or staying asleep, or sleeping too much 1 0 Feeling tired or having little energy 1 1 Poor appetite or overeating 0 1 Feeling bad about yourself - or that you are a failure or have let yourself or your family down 1 0 Trouble concentrating on things, such as reading the newspaper or watching television 1 0 Moving or speaking so slowly that other people could have noticed. Or the opposite - being so fidgety or restless that you have been moving around a lot more than usual 0 0 Thoughts that you would be better off , or of hurting yourself in some way 0 0 If you checked off any problems, how difficult have these problems made it for you to do your work,take care of things at home, or get along with other people? Not difficult at all Not difficult at all in this encounter* Kailyn LooneyDO - 03/15/2019 12:02 PM EDT Subjective: Patient ID: Vinh Colby is a 49 y.o. male. Hypertension HPI: Patient states that he has had some increased urinary frequency but otherwise no problem with adding the HCTZ. He does have an occasional headache but no chest pain, palpitation, shortness of breath or dizziness Social History Tobacco Use Smoking status: Never Smoker Smokeless tobacco: Never Used Substance Use Topics Alcohol use: Yes Comment: rare Drug use: No Family History Problem Relation Age of Onset COPD Mother Coronary artery disease Mother at 66 [place] No Known Allergies The following portions of the patient's history were reviewed and updated as appropriate: allergies, current medications, past family history, past medical history, past social history, past surgicalhistory and problem list. Review of Systems Constitutional: Negative for activity change and fatigue. Eyes: Negative for visual disturbance. Respiratory: Positive for cough ( Improved since stopping the CHAD inhibitor). Negative for shortness of breath. Cardiovascular: Negative for chest pain, palpitations and leg swelling. Genitourinary: Positive for frequency ( From the HCTZ). Neurological: Positive for headaches ( Occasional). Negative for dizziness and weakness. Psychiatric/Behavioral: Sleep disturbance: Possible sleep apnea. Objective: BP (!) 142/94 (BP Location: Left arm, Patient Position: Sitting, BP Cuff Size: Adult) Pulse 77 Temp 98.3 F (36.8 C) Ht 5' 5 Wt 97.1 kg (214 lb) SpO2 98% BMI 35.61 kg/m Physical Exam Constitutional: He is cooperative. No distress. Neck: Neck supple. No muscular tenderness present. Carotid bruit is not present. No tracheal deviation present. No thyromegaly present. Cardiovascular: Normal rate, regular rhythm and normal heart sounds. No murmur heard. Pulmonary/Chest: Effort normal and breath sounds normal. He has no wheezes. Musculoskeletal: He exhibits no edema. Lymphadenopathy: He has no cervical adenopathy. Psychiatric: He has a normal mood and affect. Assessment/Plan: Diagnoses and all orders for this visit: Elevated blood pressure reading with diagnosis of hypertension - amLODIPine (NORVASC) 5 MG tablet; Take 1 (one) tablet (5 mg total) by mouth daily . Patient to start with 1/2 tablet for 1 week and if pressure is still elevated increase to a whole tablet. He is to follow-up in 3 weeks For any new medications prescribed today, patient was educated about indications for the medication, how to take the medication and potential side effects of the medications. This note was generated using [employer] voice recognition software in an effort to expedite communication. Please excuse results in grammatical or wording errors. documented in this encounter* Kailyn Looney DO - 04/05/2019 12:23 PM EDT Subjective: Patient ID: Vinh Colby is a 49 y.o. male. Hypertension HPI: Patient presents today in follow-up after adding amlodipine to his blood pressure medication. He states that he has been taking blood pressure readings and he did increase the amlodipine to 5 mgdaily. He feels that his blood pressures are still running high however when looking at his readings they do seem to have improved. He is having no side effects to the amlodipine. There is no constipation or lower extremity edema. Social History Tobacco Use Smoking status: Never Smoker Smokeless tobacco: Never Used Substance Use Topics Alcohol use: Yes Comment: rare Drug use: No Family History Problem Relation Age of Onset COPD Mother Coronary artery disease Mother at 66 [place] No Known Allergies The following portions of the patient's history were reviewed and updated as appropriate: allergies, current medications, past family history, past medical history, past social history, past surgicalhistory and problem list. Review of Systems Constitutional: Negative for activity change and fatigue. Eyes: Negative for visual disturbance. Respiratory: Negative for cough and shortness of breath. Cardiovascular: Negative for chest pain, palpitations and leg swelling. Gastrointestinal: Negative for constipation. Genitourinary: Positive for frequency ( From the HCTZ). Neurological: Positive for headaches ( Occasional). Negative for dizziness and weakness. Psychiatric/Behavioral: Sleep disturbance: Possible sleep apnea. Objective: BP 117/79 Pulse 87 Temp 98.4 F (36.9 C) (Oral) Ht 5' 5 Wt 97.1 kg (214 lb) SpO2 95% BMI 35.61 kg/m Physical Exam Cardiovascular: Normal rate, regular rhythm and normal heart sounds. No murmur heard. Pulmonary/Chest: Effort normal and breath sounds normal. He has no wheezes. Musculoskeletal: He exhibits no edema. Psychiatric: He has a normal mood and affect. Assessment/Plan: Diagnoses and all orders for this visit: Hypertension, essential - telmisartan-amLODIPine (TWYNSTA) 40-5 mg per tablet; Take 1 (one) tablet by mouth daily . Medication change. Combined telmisartan and amlodipine and 1 tablet - hydroCHLOROthiazide (MICROZIDE) 12.5 mg capsule; Take 1 (one) capsule (12.5 mg total) by mouth daily . Erectile dysfunction, unspecified erectile dysfunction type - sildenafil (VIAGRA) 100 MG tablet; Take 1 (one) tablet (100 mg total) by mouth daily as needed for erectile dysfunction . Reason to follow-up in 3 months. Recommend that he only take his blood pressure 1-2 times a week. For any new medications prescribed today, patient was educated about indications for the medication, how to take the medication and potential side effects of the medications. This note was generated using [employer] voice recognition software in an effort to expedite communication. Please excuse results in grammatical or wording errors. documented in this encounter* Kailyn Looney DO - 07/19/2019 8:30 AM EDT Subjective: Patient ID: Vinh Colby is a 49 y.o. male. Hypertension This is a chronic problem. The current episode started more than 1 year ago. Pertinent negatives include no chest pain, headaches, palpitations, peripheral edema or shortness of breath. Risk factors for coronary artery disease include family history, dyslipidemia and male gender. Treatments tried: patient is currently taking amlodipine/valsartan 5/160 and HCTZ 12.5 mg both daily. The current treatment provides significant improvement. There are no compliance problems. Hyperlipidemia This is a chronic problem. The current episode started more than 1 year ago. Pertinent negatives include no chest pain, myalgias or shortness of breath. Treatments tried: omega 3s and diet change. Risk factors for coronary artery disease include family history, dyslipidemia, hypertension and male sex. Hand Pain There was no injury mechanism. Pain location: Left middle finger. Quality: Triggering. The pain is mild. Pertinent negatives include no chest pain. He has tried nothing for the symptoms. Social History Tobacco Use Smoking status: Never Smoker Smokeless tobacco: Never Used Substance Use Topics Alcohol use: Yes Comment: rare Drug use: No Family History Problem Relation Age of Onset COPD Mother Coronary artery disease Mother at 66 of [place] No Known Allergies The following portions of the patient's history were reviewed and updated as appropriate: allergies, current medications, past family history, past medical history, past social history, past surgicalhistory and problem list. Review of Systems Constitutional: Negative for appetite change, fatigue and unexpected weight change. HENT: Negative for hearing loss. Eyes: Negative for visual disturbance. Respiratory: Negative for cough, shortness of breath and wheezing. Cardiovascular: Negative for chest pain, palpitations and leg swelling. Gastrointestinal: Negative for abdominal pain and constipation. Endocrine: Negative for polydipsia and polyuria. Currently receiving weekly testosterone injections from other physician Genitourinary: Negative for difficulty urinating, flank pain, frequency and urgency. Intermittent problems with the ED Musculoskeletal: Negative for arthralgias and myalgias. Triggering effect left middle finger Skin: Negative for rash. Neurological: Negative for dizziness, weakness and headaches. Psychiatric/Behavioral: Negative for decreased concentration and sleep disturbance. Objective: BP 120/72 Pulse 77 Temp 98.2 F (36.8 C) Ht 5' 5 Wt 96.2 kg (212 lb) SpO2 96% BMI 35.28kg/m Physical Exam Constitutional: General: He is not in acute distress. Appearance: Normal appearance. Neck: Musculoskeletal: Neck supple. No muscular tenderness. Thyroid: No thyromegaly. Vascular: No carotid bruit. Trachea: No tracheal deviation. Cardiovascular: Rate and Rhythm: Normal rate and regular rhythm. Heart sounds: Normal heart sounds. No murmur. Pulmonary: Effort: Pulmonary effort is normal. Breath sounds: Normal breath sounds. No wheezing, rhonchi or rales. Musculoskeletal: General: No swelling. Left hand: He exhibits normal range of motion, no tenderness, no bony tenderness and no swelling. Normal strength noted. Hands: Right lower leg: No edema. Left lower leg: No edema. Lymphadenopathy: Cervical: No cervical adenopathy. Upper Body: Right upper body: No supraclavicular adenopathy. Left upper body: No supraclavicular adenopathy. Psychiatric: Mood and Affect: Mood and affect normal. Assessment/Plan: Diagnoses and all orders for this visit: Hypertension, essential Trigger middle finger of left hand - diclofenac sodium 1 % Gel; Apply 1 (one) g topically 4 (four) times a day . - If no response after 3 weeks we will send to orthopedics Hypertriglyceridemia Need for hepatitis A immunization - Hepatitis A vaccine adult IM Patient to follow-up in 5 to 6 months or sooner if needed For any new medications prescribed today, patient was educated about indications for the medication, how to take the medication and potential side effects of the medications. This note was generated using [employer] voice recognition software in an effort to expedite communication. Please excuse results in grammatical or wording errors. documented in this encounter* Margoth Duran DO - 10/11/2019 8:02 AM EST ENT Clinic Follow-Up Note History of Present Illness Vinh Colby is a 49 y.o. male presents to the ENT clinic for CT sinus follow- up results. Patientoriginally presented to the ENT clinic on 08/02/2019 with complaint of chronic nasal congestion and obstruction, postnasal drainage and irritant cough that is been going on for years. At his last ENT clinic visit, the patient was given Zyrtec along with Tessalon Perles for his symptoms. He states that these medications were not helpful at all for his symptoms. He denies any further acute sinus infections or issues since his last ENT clinic visit. Patient was previously allergy tested and was negative. No Known Allergies Past Medical History: Diagnosis Date Erectile dysfunction Hypertension Hypertriglyceridemia Testicular cancer (HCC) Social History Socioeconomic History Marital status: Spouse name: Not on file Number of children: Not on file Years of education: Not on file Highest education level: Not on file Occupational History Not on file Social Needs Financial resource strain: Not on file Food insecurity Worry: Never true Inability: Never true Transportation needs Medical: Not on file Non-medical: Not on file Tobacco Use Smoking status: Never Smoker Smokeless tobacco: Never Used Substance and Sexual Activity Alcohol use: Yes Comment: rare Drug use: No Sexual activity: Yes Partners: Female Lifestyle Physical activity Days per week: Not on file Minutes per session: Not on file Stress: Not on file Relationships Social connections Talks on phone: More than three times a week Gets together: More than three times a week Attends yarsani service: Not on file Active member of club or organization: Not on file Attends meetings of clubs or organizations: Not on file Relationship status: Not on file Other Topics Concern Not on file Social History Narrative Not on file Family History Problem Relation Age of Onset COPD Mother Coronary artery disease Mother at 66 of [place] Past Surgical History: Procedure Laterality Date HERNIA REPAIR inguinal hernia TESTICLE SURGERY cancer 2005 Review of Systems: The following systems were reviewed and revealed the following in addition to any already discussedin the HPI: Constitutional: denies unintentional weight loss, fevers, chills Eyes: denies blurry or double vision HENT: see HPI Respiratory: denies dyspnea or cough Cardiovascular: denies chest pain, heart palpitations, or SOB Gastrointestinal: denies abdominal pain, nausea, or diarrhea Genitourinary: denies dysuria, hematuria, or pyuria Musculoskeletal: denies back or joint pain Hematology/Lymphatics: denies bleeding disorders or coagulopathies Endocrine: denies excessive thirst, heart or cold intolerance Skin: denies rashes or skin lesions Neuro: denies focal neurologic deficits Allergy/Immunology: denies allergic rhinitis, watery eyes Psych: denies depression or mood disturbances Physical Exam There were no vitals filed for this visit. Constitutional: NAD, AOx3, well nourished patient Head: NCAT, face symmetric, HB 1/6 Cardio: radial pulses intact, extremities warm to touch. Resp: NAD, chest wall rise equal, no obvious wheeze or stridor. Neuro: AOx3, CN II-XII intact, no focal neuro deficits. Abdominal: No organomegaly, soft, nontender Extremities: Moves all extremities, no deficits Skin: Normal turgor, no rashes or skin lesions Ears: EACs patent bilaterally, TMs intact, no sign of middle ear effusion or pathology Nose: Nares patent, septum deviated to the right, inferior turbinates hypertrophy, greater left versus right. Oral Cavity / Oropharynx: Lips and tongue normal. No pharyngeal obstruction. Posterior pharynx without edema or erythema. No masses, lesions, or signs of inflammation/infection. Neck: Trachea midline, no cervical LAD, thyroid normal to palpation. Psych: normal mood and cognition Assessment and Plan: Vinh Colby is a 49 y.o. male who presents with Diagnoses and all orders for this visit: DNS (deviated nasal septum) Hypertrophy of both inferior nasal turbinates CT sinus results demonstrate a prominent nasal septal deflection to the right with a prominent nasal spur. There is also bilateral turbinate hypertrophy, worse on the left versus the right. Differentoptions including continued medical management, along with the surgical procedure involving septoplasty and bilateral inferior turbinate reduction discussed with the patient today. All risks, benefits and alternatives were thoroughly discussed with the patient. All questions were thoroughly answered. Patient is elected to proceed to the operating room for septoplasty and bilateral turbinate reduction. Informed consent signed at today's ENT clinic visit. Patient will contact our surgical lead nurse to set up a time. He will also need to undergo preoperative testing. Patient understands and agreeable to this plan. documented in this encounter* Gil Duran DO - 12/13/2019 9:21 AM EST Subjective Patient ID: Vinh Colby is a 49 y.o. male. HPI the patient presents today status post septoplasty for an extensive nasal obstruction with multiple nasal cartilage and bony deflections occluding the right side of his nose. He states that he isdoing well his pain medications relieved all discomfort he is utilizing his saline for cleaning andis doing well he states that he is able to breathe with his splints intact and states that he is doing better than he did ever prior to surgery even though the splints are intact. He presents for a cleaning. Review of Systems Objective Physical Exam HENT: Nose: Comments: After instilling 4% lidocaine spray and oxymetazoline own into both nasal passages and cotton pledgets laden with the same under the Landis splints the nasal passages were suctioned of mucoid material and good nasal passages were visualized the septum was nicely midline. Crusts removed from both nasal vestibules with a cotton tip applicator saturated in peroxide. Bacitracin ointment was applied to the nostrils and the oropharynx revealed no postnasal drainage or bleeding. Assessment/Plan: Diagnoses and all orders for this visit: DNS (deviated nasal septum) Hypertrophy of both inferior nasal turbinates Nasal obstruction without choanal atresia History of nasal septoplasty PLAN: The patient will begin his medicated nasal rinses in the shower and continue with his saline and Afrin as directed. We will recheck him next week for splint removal. documented in this encounter* Gli Duran DO - 12/17/2019 9:21 AM EST Subjective Patient ID: Vinh Colby is a 49 y.o. male. HPI the patient presents today status post septoplasty and turbinate reduction for a severe nasal septal deviation to the right. He has been doing well with his nasal rinses in his care he presents today for splints to be removed. Review of Systems Objective Physical Exam HENT: Nose: Comments: After spraying 4% lidocaine and oxymetazoline into both nasal passages 0 degree endoscopywas used. The suture holding the Landis splints through the membranous septum was incised with a #11blade and the splints were removed. Mucoid and old bloody secretions were suctioned from both sides. Excellent nasal passages were noted bilaterally without evidence of bleeding or infection. Assessment/Plan: Diagnoses and all orders for this visit: DNS (deviated nasal septum) Hypertrophy of both inferior nasal turbinates Nasal obstruction without choanal atresia History of nasal septoplasty PLAN: The patient will continue with his medicated rinses in the shower and saline during the day as well as the application of his antibiotic ointment to the nostrils. He will be rechecked in 1 weekand avoid blowing his nose at this time. documented in this encounter* Gil Duran DO - 12/24/2019 9:20 AM EST Subjective Patient ID: Vinh Colby is a 49 y.o. male. HPI the patient presents today status post septoplasty and turbinate reduction secondary to his severe nasal septal deviation to the right side. He has been utilizing his medicated nasal rinses and presents for a recheck. Review of Systems Objective Physical Exam HENT: Nose: Comments: After instilling 4% lidocaine spray and oxymetazoline own into both nasal passages 0 degree endoscopy was performed. There is no evidence of any purulence minimal crusts easily removed witha suction and a forcep. There is some mild deviation of the septum over onto the right side anteriorly but still patent nasal passage on the right. Assessment/Plan: Diagnoses and all orders for this visit: Hypertrophy of both inferior nasal turbinates Nasal obstruction without choanal atresia History of nasal septoplasty PLAN: The patient will continue with his nasal rinses and will be rechecked in 1 week. 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 We have instructed him to blow his nose but to avoid manipulating the anterior part of the nose forcefully. documented in this encounter* Gil Duran DO - 12/31/2019 9:35 AM EST Subjective Patient ID: Vinh Colby is a 49 y.o. male. HPI the patient presents today for a recheck of his septoplasty for a severe and total nasal airwayobstruction on the right side. He has been doing his nasal rinses and nasal care as directed. He presents for a cleaning and a recheck. Review of Systems Objective Physical Exam HENT: Nose: Comments: After instilling 4% lidocaine spray and oxymetazoline own into both nasal passages 0 degree endoscopy was performed. There was a mild 2 to 3 mm shift of the entire straight septum to the right side but still maintaining a patent nasal airway on the right. No crusting no signs of infectionare seen. Assessment/Plan: Diagnoses and all orders for this visit: Hypertrophy of both inferior nasal turbinates Nasal obstruction without choanal atresia History of nasal septoplasty Chronic rhinitis - azelastine (ASTELIN) 137 mcg (0.1 %) nasal spray; 2 (two) sprays by Each Nare route 2 (two) timesa day . PLAN: The patient will continue with the use of his nasal rinses. We will add Astelin nasal spray 2sprays to both nostrils twice daily for his mild rhinorrhea and we will recheck him in 1 week. We discussed with him that he may need a simple balloon revision of his nicely straightened septum pushing it uniformly back to perfect midline. documented in this encounter* Gil Duran, - 01/07/2020 9:31 AM EST Subjective Patient ID: Vinh Colby is a 49 y.o. male. HPI the patient presents today for a final postop recheck of a severe totally obstructed right nasal passage. He has been doing well with his cleaning he presents for a postoperative recheck. Review of Systems Objective Physical Exam HENT: Nose: Comments: After instilling oxymetazoline on into both nasal passages 0 degree endoscopy was performed. Some crusts were removed from the inferior turbinate on the left side once removed the nasal passage was nicely patent and open on the right side there was some mild 2 to 3 mm shifting of the cartilage anterior to mid region but the septum was nicely midline once visualizing the septum past the anterior one third of the nasal passage. No intranasal mucopurulence polyps or space-occupying lesions or crusts were seen. Assessment/Plan: Diagnoses and all orders for this visit: Hypertrophy of both inferior nasal turbinates Nasal obstruction without choanal atresia History of nasal septoplasty PLAN: The patient will continue with routine nasal care and be rechecked in 2 months should there be a need to use a balloon to medialize the right portion of the septum to the midline we will consider that as a nonsurgical procedure if needed. documented in this encounter* Kailyn Looney, - 01/10/2020 8:30 AM EST Subjective: Patient ID: Vinh Colby is a 49 y.o. male. Physical exam HPI: Patient presents today for annual physical exam. He states that he is doing well. His diet hasnot been as good as it should be and he is trying to change that. He continues to exercise regularly playing his drums. He is no longer playing hockey. He feels that he sleeps well. Social History Tobacco Use Smoking status: Never Smoker Smokeless tobacco: Never Used Substance Use Topics Alcohol use: Yes Comment: rare Drug use: No Family History Problem Relation Age of Onset COPD Mother Coronary artery disease Mother at 66 [place] No Known Allergies The following portions of the patient's history were reviewed and updated as appropriate: allergies, current medications, past family history, past medical history, past social history, past surgicalhistory and problem list. Review of Systems Constitutional: Negative for activity change, fatigue and unexpected weight change. HENT: Positive for tinnitus (mild intermittant). Negative for congestion, hearing loss, nosebleeds,rhinorrhea and trouble swallowing. Eyes: Negative for visual disturbance ( Wears glasses). Respiratory: Negative for cough, shortness of breath and wheezing. Cardiovascular: Negative for chest pain, palpitations and leg swelling. Gastrointestinal: Negative for abdominal pain, blood in stool, constipation and diarrhea. Endocrine: Negative for cold intolerance and heat intolerance. Genitourinary: Negative for difficulty urinating, dysuria, frequency, hematuria and urgency. Musculoskeletal: Negative for arthralgias, back pain, joint swelling and myalgias. Skin: Negative for rash. Allergic/Immunologic: Negative for environmental allergies and food allergies. Neurological: Negative for dizziness, weakness, numbness and headaches. Hematological: Does not bruise/bleed easily. Psychiatric/Behavioral: Negative for dysphoric mood and sleep disturbance. The patient is not nervous/anxious. Objective: BP 116/78 Pulse 66 Temp 99.2 F (37.3 C) Ht 5' 5 Wt 96.6 kg (213 lb) SpO2 98% BMI 35.45kg/m Physical Exam Constitutional: General: He is not in acute distress. Appearance: Normal appearance. He is well-developed. HENT: Head: Normocephalic. Right Ear: Tympanic membrane and ear canal normal. Left Ear: Tympanic membrane and ear canal normal. Nose: No congestion or rhinorrhea. Mouth/Throat: Mouth: Mucous membranes are moist. Pharynx: Oropharynx is clear. Eyes: Extraocular Movements: Extraocular movements intact. Conjunctiva/sclera: Conjunctivae normal. Pupils: Pupils are equal, round, and reactive to light. Neck: Musculoskeletal: Neck supple. No muscular tenderness. Thyroid: No thyromegaly. Vascular: Normal carotid pulses. No carotid bruit. Trachea: No tracheal deviation. Cardiovascular: Rate and Rhythm: Normal rate and regular rhythm. Pulses: Normal pulses. Heart sounds: Normal heart sounds. No murmur. Pulmonary: Effort: Pulmonary effort is normal. Breath sounds: Normal breath sounds. No wheezing, rhonchi or rales. Abdominal: General: Bowel sounds are normal. Palpations: Abdomen is soft. Tenderness: There is no abdominal tenderness. Hernia: No hernia is present. There is no hernia in the right inguinal area or left inguinal area. Genitourinary: Scrotum/Testes: Right: Mass or tenderness not present. Prostate: Not enlarged, not tender and no nodules present. Rectum: Guaiac result negative. Comments: Left testicle removed due to cancer Musculoskeletal: General: No tenderness. Right lower leg: No edema. Left lower leg: No edema. Lymphadenopathy: Cervical: No cervical adenopathy. Upper Body: Right upper body: No supraclavicular adenopathy. Left upper body: No supraclavicular adenopathy. Skin: General: Skin is warm and dry. Neurological: Cranial Nerves: Cranial nerves are intact. Motor: Motor function is intact. Deep Tendon Reflexes: Reflexes are normal and symmetric. Psychiatric: Mood and Affect: Mood and affect normal. Assessment/Plan: Diagnoses and all orders for this visit: Physical exam - CBC and Differential; Future - Comprehensive Metabolic Panel; Future Diabetes mellitus screening - Hemoglobin A1c; Future Lipid screening - Lipid Panel; Future Prostate cancer screening - PSA, Screen; Future Proceed pending the results of lab For any new medications prescribed today, patient was educated about indications for the medication, how to take the medication and potential side effects of the medications. This note was generated using [employer] voice recognition software in an effort to expedite communication. Please excuse results in grammatical or wording errors. documented in this encounter* Kailyn Looney DO - 08/16/2019 2:14 PM EDT Subjective: Patient ID: Vinh Colby is a 49 y.o. male. Erectile dysfunction HPI: Patient presents today regarding increased difficulty getting and maintaining an erection. Previously the sildenafil 100 mg worked very well and at times he found he did not need to use the medication. In March of this year he stopped going to the men's clinic to have testosterone injections. Hestates that his libido is good. He has not had any weakness or fatigue. One thing that has changed is his medication for his blood pressure. We discussed that this might be the problem. He states that his feels that he has lost interest because of her. He states this is definitely not the problem. We discussed the physiology behind obtaining an erection. We also discussed that anxiety about o btaining an erection might also be the cause of his ED. Patient has had an increase in urinary frequency and urgency. He does not however have nocturia. A urine dipstick was done which was unremarkable we will culture this to make sure there is no infection. Looking at the timing of when this started and the increased ED, it is a good possibility that the HCTZ that was added to control his blood pressure may be the cause of both. Social History Tobacco Use Smoking status: Never Smoker Smokeless tobacco: Never Used Substance Use Topics Alcohol use: Yes Comment: rare Drug use: No Family History Problem Relation Age of Onset COPD Mother Coronary artery disease Mother at 66 [place] No Known Allergies The following portions of the patient's history were reviewed and updated as appropriate: allergies, current medications, past family history, past medical history, past social history, past surgicalhistory and problem list. Review of Systems Constitutional: Negative for activity change and fatigue. Respiratory: Negative for shortness of breath. Cardiovascular: Negative for chest pain, palpitations and leg swelling. Gastrointestinal: Negative for abdominal pain. Endocrine: No decrease in libido Genitourinary: Positive for frequency and urgency. Negative for decreased urine volume, difficulty urinating, dysuria, flank pain and hematuria. Neurological: Negative for dizziness, weakness, numbness and headaches. Psychiatric/Behavioral: Negative for agitation, dysphoric mood and sleep disturbance. The patient is not nervous/anxious. Objective: BP 126/82 Pulse 80 Temp 98.2 F (36.8 C) Ht 5' 5 Wt 96.2 kg (212 lb) SpO2 96% BMI 35.28kg/m Physical Exam Constitutional: General: He is not in acute distress. Appearance: Normal appearance. Neck: Musculoskeletal: Neck supple. No muscular tenderness. Thyroid: No thyromegaly. Vascular: No carotid bruit. Trachea: No tracheal deviation. Cardiovascular: Rate and Rhythm: Normal rate and regular rhythm. Heart sounds: Normal heart sounds. No murmur. Pulmonary: Effort: Pulmonary effort is normal. Breath sounds: Normal breath sounds. No wheezing, rhonchi or rales. Musculoskeletal: General: No swelling. Right lower leg: No edema. Left lower leg: No edema. Lymphadenopathy: Cervical: No cervical adenopathy. Upper Body: Right upper body: No supraclavicular adenopathy. Left upper body: No supraclavicular adenopathy. Psychiatric: Mood and Affect: Mood and affect normal. Assessment/Plan: Diagnoses and all orders for this visit: Erectile dysfunction, unspecified erectile dysfunction type - tadalafil (CIALIS) 20 MG tablet; Take 1 (one) tablet (20 mg total) by mouth daily as needed for erectile dysfunction Take prior to sexual activity . Medication change from sildenafil. Urinary frequency - Urine Aerobic Culture; Future - POC Urinalysis Dipstick - Urine Aerobic Culture Hypertension, essential - CBC and Differential; Future - Comprehensive Metabolic Panel; Future - Patient to hold the HCTZ Hypertriglyceridemia - Lipid Panel; Future Androgen deficiency - Testosterone, Total and Free (Calculated); Future Motion sickness, initial encounter - scopolamine (TRANSDERM-SCOP) 1 mg over 3 days patch; Place 1 (one) patch on the skin every 72 hours . (Patient going on a cruise and requested treatment) Proceed pending results of treatment, medication change and results of testing Patient follow-up in 1 month but to call in 7 to 10 days regarding symptoms and response to treatment. For any new medications prescribed today, patient was educated about indications for the medication, how to take the medication and potential side effects of the medications. This note was generated using [employer] voice recognition software in an effort to expedite communication. Please excuse results in grammatical or wording errors. documented in this encounter Advance Directives No Advanced Directives Records FoundDocuments on File Type Date Recorded Patient [employer] Advance Directives and Livin g Will 10/27/2018 11:01 PM Documents on File Type Date Recorded Patient [employer] anation Advance Directives and Livin g Will 08/16/2019 11:01 PM Documents on File Type Date Recorded Patient [employer] Expl anation Advance Directives and Livin g Will Advance Directives and Livin g Will 12/11/2019 9:15 AM Documents on File Type Date Recorded Patient [employer] Expl anation Advance Directives and Livin g Will Advance Directives and Livin g Will 12/11/2019 9:15 AM Documents on File Type Date Recorded Patient [employer] Expl anation Advance Directives and Marc vizcarra Will 08/16/2019 11:01 PM Reason for Referral Status Reason Specialty Diagnoses / Procedures Referred By Contact Referred To Contact Authorized Sleep Medicine Diagnoses Witnessed episode of apnea Habitual snoring Kailyn Looney, DO [address] [place] [address] Status Reason Specialty Diagnoses / Procedures Referre d By Contact Referred To Contact Closed Radiology Diagnoses Deviated nasal septum Chronic sinusitis, unspecified location Procedures CT Sinus Stealth Without Contrast Gil Duran, DO [address] [facility] [address] [place] [address] Summary Purpose Family History No Family History Records FoundNo Family History Records FoundNo Family History Records FoundNo Family History Records Found Procedure Findings Note Patient: VINH COLBY Wilner RN: ([facility])-[id number] Age: 50 years Sex: Male : 1970 Associated Diagnoses: None Author: Tee Richter DO Supervising Physician Comments Documentation By: Attending Physician. Subjective Subjective: Patient participated in the evaluation: Yes. Nausea: not present. Vomiting: not present. Pain: acceptable pain control. Objective Objective: Vital Signs: Last Charted Vital Signs Temperature: 98.1 (09/22 16:54) Pulse: 115 (09/22 17:54) Respiration: 16 (09/22 17:54) BP: 108/65 (09/22 17:54) Pulse Ox: 90 (09/22 17:54) Oxygen Delivery: Nasal cannula (09/22 16:00) O2 Device Flow: 4 L/min Pain Score: 0 (09/22 18:04) . Mental Status: Unchanged from preanesthesia assessment. Postoperative hydration: adequate. Assessment Assessment: Airway patent: yes. Plan Plan: Postanesthesia Plan: post anesthetic surveillance concluded. Note DICTATED BY:DEMARCUS OG MD SERVICE DATE:09/22/2020 PREOPERATIVE DIAGNOSIS: Recurrent incarcerated incisional hernia. POSTOPERATIVE DIAGNOSIS: Recurrent incarcerated incisional hernia. PROCEDURES: 1. Excision of implanted mesh. 2. Repair of recurrent incarcerated ventral incisional hernia with component separation and complex abdominal closure involving retrorectus repair and transversus abdominis release. SURGEON: Demarcus Og MD HOSPICE PLAN ADMINISTRATOR: Austin Zavala DO ANESTHESIA: General. ESTIMATED BLOOD LOSS: 300 mL PROCEDURAL FINDINGS: 20 cm x 11 cm anterior abdominal wall incisional hernia that has mesh previously implanted into it and bilateral incarcerated hernias on each side of the previously implanted mesh, the right side containing small intestine. SPECIMENS: None. WOUND CLASSIFICATION: Clean. CONDITION: Fair. DISPOSITION: To the floor. INDICATIONS FOR PROCEDURE: The patient is a 50-year-old gentleman who presented to my office complaining of bulge in his abdominal wall fe (more content not included)... Note CLINICAL SUMMARY Please take this summary document to your follow up appointments. [facility] 09/27/20 11:21 [facility] [place]. [address] PATIENT INFORMATION Name: VINH COLBY Address: [address] [place] [id number] Age: 50 Years Phone: [phone] : 1970 12:00 Sex: Male Race: White Ethnicity: Not Hispan/Lat Admitted From: Clinic or [facility] Medical Service: Surgery Nurse Unit/Bed: (PR) [facility] Admit Date: 09/22/2020 06:15 PCP: Physician, PCP Unknown PHYSICIANS INVOLVED WITH CARE Attending Physicians: Demarcus Og MD - Surgery Admitting Physician: None found Primary Care Physician:Physician, PCP Unknown,Family Practice,,, - Consults: None found Problems Active Incisional hernia without obstruction or gangrene HTN (hypertension) Allergies No Known Medicat (more content not included)... Note Patient: VINH COLBY RN: ([facility])-[id number] Age: 50 years Sex: Male : 1970 Associated Diagnoses: None Author: Austin Zavala DO Discharge Information Admit Date: 09/22/20 06:15 Discharge Date: 09/27/20 12:00 Discharge Disposition: Home 01 Reason For Visit: K43.2 R19.00 Attending Physician: Demarcus Og MD Primary Care Physician: Physician, PCP Unknown Active/Final Diagnosis(es) Other specified postprocedural states . Hospital Course Hospital Course Repair of large ventral hernia. Patient with history of ventral hernia repair with mesh presented for repair of recurrent ventral hernia. Post operatively patient did well but required several days for return of bowel function. There were no complications and after 4 - 5 days he was tolerating a regular diet and was tolerating pain with oral medications. He was discharged home with follow up with Dr. Og. Procedures Performed PROCEDURES Ventral herniorrhaphy (SNOMED CT [id number]) performed by Earel MARS (more content not included)... Note Patient: HIRAMVINH YE RN: ([facility])-[id number] Age: 50 years Sex: Male : 1970 Associated Diagnoses: None Author: Austin Zavala DO Supervising Physician Comments GENERAL SURGERY PROGRESS NOTE SUBJECTIVE: Patient doing very well overnight. Continuing to have bowel function. Did not require any IV pain medications. OBJECTIVE: VS, AF, RA Vital Signs (Past 36 Hours) Last Charted Minimum Maximum Temperature 98.4 (09/27 00:20) 98.2 (09/26 15:00) 98.9 (09/26 03:25) Pulse 86 (09/27 07:56) 79 (09/26 02:44) 93 (09/26 15:00) Resp 16 (09/27 07:56) 16 (09/27 07:56) 16 (09/27 07:56) Pulse Ox 94 (09/27 07:56) 91 (09/26 07:48) 94 (09/27 07:56) Pain Score 5 (09/26 19:55) 5 (09/26 19:55) 5 (09/26 19:55) BP 165/118 (09/27 00:20) Minimum Maximum Systolic BP 144/82 (09/26 15:00) 165/118 (09/27 00:20) Diastolic BP 144/82 (09/26 15:00) 165/118 (09/27 00:20) UOP: voiding 600 / 400 NG: removed RUTHY R (retrorectus): - / (SS) RUTHY L (subq): - (SS) PHYSICAL EXAM: GEN: (more content not included)... Hospital Course Note CLINICAL SUMMARY Please take this summary document to your follow up appointments. [facility] 09/27/20 11:21 [address] [place]. [address] PATIENT INFORMATION Name: VNIH COLBY Address: [address] [place] [address] [place] [address] Age: 50 Years Phone: [phone] : 1970 12:00 MRN: ([id number] Sex: Male Race: White Ethnicity: Not Hispan/Lat Admitted From: Clinic or [facility] Medical Service: Surgery Nurse Unit/Bed: (PR) [facility] Admit Date: 09/22/2020 06:15 PCP: Physician, PCP Unknown PHYSICIANS INVOLVED WITH CARE Attending Physicians: Demarcus Og MD - Surgery Admitting Physician: None found Primary Care Physician:Physician, PCP Unknown,Family Practice,,, - Consults: None found Problems Active Incisional hernia without obstruction or gangrene HTN (hypertension) Allergies No Known Medicat (more content not included)... Note Patient: VINH COLBY RN: ()-[id number] Age: 50 years Sex: Male : 1970 Associated Diagnoses: None Author: Austin Zavala DO Discharge Information Admit Date: 09/22/20 06:15 Discharge Date: 09/27/20 12:00 Discharge Disposition: Home 01 Reason For Visit: K43.2 R19.00 Attending Physician: Demarcus Og MD Primary Care Physician: Physician, PCP Unknown Active/Final Diagnosis(es) Other specified postprocedural states . Hospital Course Hospital Course Repair of large ventral hernia. Patient with history of ventral hernia repair with mesh presented for repair of recurrent ventral hernia. Post operatively patient did well but required several days for return of bowel function. There were no complications and after 4 - 5 days he was tolerating a regular diet and was tolerating pain with oral medications. He was discharged home with follow up with Dr. Og. Procedures Performed PROCEDURES Ventral herniorrhaphy (SNOMED CT [id number]) performed by Earle MARS (more content not included)... Additional Source Comments Reason for Visit (unrecogniz ed section and content) Reason Comments Back Pain Reason Comments Back Pain ER x 2- Hypertension lisinopril at 40g Reason Comments Annual Exam Reason Comments Hypertension Snoring Reason Comments Hypertension Reason Comments Hypertension follow up on blood p ressure Reason Comments Hypertension Hyperlipidemia Hand Pain Left Injections Hep A- First injecti on from the [facility]- February 15 Reason Comments Follow-up go over CT results Status Reason Specialty Diagnoses / Procedures Referre d By Contact Referred To Contact Diagnoses chronic nasal obstruction,DNS, turbinate hypertropgy Procedures AR EXCISION TURBINATE,SUBMUCOUS AR REPAIR OF NASAL SEPTUM Gil Duran DO [address] [facility] [address] [place] [address] Reason Comments Erectile Dysfunction Discuss testosteron e , pt has been off testosterone since March- he is very frustrated Hypertension Status Reason Specialty Diagnoses / Procedures Referre d By Contact Referred To Contact Closed Radiology Diagnoses Deviated nasal septum Chronic sinusitis, unspecified location Procedures CT Sinus Stealth Without Contrast Gil Duran DO [address] [facility] [address] [place] [address] ED Provider Notes - Leslie Chung DO - 10/27/2018 4:18 PM ESTED Attestation Note - Leslie Chung DO - 10/27/2018 4:17 PM EST Miscellaneous Notes (unrecog nized section and content) Formatting of this note may be different from the original. ED PROVIDER NOTE [facility] EMERGENCY DEPARTMENT NAME: Vinh Cobly AGE: 48 y.o. : 1970 VISIT DATE: 10/27/2018 CSN: [id number] PCP: Kailyn Looney DO Chief Complaint Patient presents with Flank Pain HPI 48-year-old male presenting with left flank pain and back pain that started yesterday evening. Remote history of kidney stones 20 years ago and this does feel somewhat similar. Also with a history of testicular cancer in 2004 status post left orchiectomy and lymph node removal. No fevers or chills. No other abdominal surgeries save for a ventral hernia which was repaired. No diarrhea. No syncope. No chest pain, no dyspnea. Quality is sharp. Severity is moderate. Past Medical History: Diagnosis Date Erectile dysfunction Hypertension Hypertriglyceridemia Testicular cancer (HCC) Past Surgical History: Procedure Laterality Date HERNIA REPAIR inguinal hernia TESTICLE SURGERY cancer 2005 Family History Problem Relation Age of Onset COPD Mother Coronary artery disease Mother at 66 of [place] Social History Social History Marital status: Spouse name: N/A Number of children: N/A Years of education: N/A Occupational History Not on file. Social History Main Topics Smoking status: Never Smoker Smokeless tobacco: Never Used Alcohol use Yes Comment: rare Drug use: No Sexual activity: Yes Partners: Female Other Topics Concern Not on file Social History Narrative No narrative on file Previous Medications AZITHROMYCIN (Z-MELANIE) 5 DAY DOSE PACK Take two tablets by mouth on day 1, then one tablet by mouth daily until finished.. HYDROCORTISONE-PRAMOXINE (ANALPRAM-HC) 2.5-1 % (4G) RECTAL CREAM Insert into the rectum 3 (three) times a day. LISINOPRIL (PRINIVIL,ZESTRIL) 20 MG TABLET Take 1 (one) tablet (20 mg total) by mouth daily. PREDNISONE (DELTASONE) 10 MG TABLET 4x3d then 3x3d then 2x3d then 1x3d. SILDENAFIL (VIAGRA) 100 MG TABLET Take 1 (one) tablet (100 mg total) by mouth daily as needed for erectile dysfunction. No Known Allergies Review of Systems Positives and pertinent negatives as per HPI. All other systems were reviewed and are negative. Patient Vitals for the past 24 hrs: BP Temp Temp src Pulse Resp SpO2 Height Weight 10/27/18 1730 (!) 178/93 - - 73 16 96 % - - 10/27/18 1655 (!) 168/97 - - 78 16 96 % - - 10/27/18 1556 (!) 202/117 98 F (36.7 C) Oral 83 16 98 % 5' 4 93.9 kg (207 lb) Physical Exam GENERAL APPEARANCE: Awake and alert. Cooperative. Moderate pain distress. HEAD: Normocephalic. Atraumatic. EYES: EOM's grossly intact. Sclera anicteric. ENT: Mucous membranes are moist. Tolerates saliva. No trismus. NECK: Supple. No meningismus. Trachea midline. HEART: RRR. Radial pulses equal bilaterally. LUNGS: Respirations unlabored. Clear to auscultation bilaterally ABDOMEN: Soft. Patient does have some discomfort with percussion of the CVA on the left as well as with some mild palpation through the left flank. No guarding or rebound. No peritonitis. 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 No evidence for large bilateral inguinal hernias. EXTREMITIES: No acute deformities. No edema. Good tone SKIN: Warm and dry. NEUROLOGICAL: No gross facial drooping. Moves all 4 extremities spontaneously. PSYCHIATRIC: Normal mood. Laboratory & Radiographic Imaging (if done): Results for orders placed or performed during the hospital encounter of 10/27/18 BMP Result Value Ref Range Sodium 137 135 - 145 mmol/L Potassium 4.5 3.5 - 5.1 mmol/L Chloride 99 98 - 108 mmol/L Bicarbonate 28 21 - 32 mmol/L Anion Gap 15 10 - 20 mmol/L Glucose 168 (H) 65 - 99 mg/dL BUN 11 8 - 25 mg/dL Creatinine 1.20 0.50 - 1.30 mg/dL eGFR 82 >=60 mL/min/1.73 m2 BUN/Creatinine Ratio 9.2 (L) 10.0 - 20.0 Calcium 9.0 8.4 - 10.2 mg/dL Urinalysis Result Value Ref Range Color, Urine Yellow Colorless, Yellow Clarity, Urine Clear Clear Specific [place] 1.024 1.005 - 1.025 pH, Urine 5.0 5.0 - 7.0 Protein, Urine 30 (A) Negative mg/dL Glucose, Urine 50 (A) Negative mg/dL Ketones, Urine Negative Negative mg/dL Bilirubin, Urine Negative Negative Urobilinogen, Urine <2.0 <2.0 mg/dL Blood, Urine Negative Negative Nitrite, Urine Negative Negative Leukocyte Esterase, Urine Negative Negative Bacteria, Urine None Seen None Seen /hpf Squamous Epithelial <1 0 - 4 /hpf Hyaline Casts 0-2 0 - 2 /lpf Mucus, Urine Rare None Seen, Rare /lpf Lavender Top Result Value Ref Range Extra Tube Hold for add-ons. Mint Green Top Result Value Ref Range Extra Tube Hold for add-ons. Gold Top Result Value Ref Range Extra Tube Hold for add-ons. Light Blue Top Result Value Ref Range Extra Tube Hold for add-ons. Waldron Top Result Value Ref Range Extra Tube Hold for add-ons. CBC Auto Differential Result Value Ref Range WBC 11.33 (H) 4.50 - 11.00 K/mcL RBC 6.02 (H) 4.50 - 5.90 M/mcL Hemoglobin 17.9 (H) 13.5 - 17.5 g/dL Hematocrit 53.2 (H) 41.0 - 53.0 % MCV 88.4 80.0 - 100.0 fL MCH 29.7 26.0 - 34.0 pg MCHC 33.6 31.0 - 37.0 g/dL Platelets 274 150 - 400 K/mcL RDW - CV 13.6 11.6 - 14.8 % MPV 9.9 9.0 - 15.5 fL Neutrophils 66.7 % Lymphocytes 21.6 % Monocytes 8.6 % Eosinophils 1.9 % Basophils 0.8 % IG Percent 0.40 % Neutrophils Abs 7.56 (H) 1.70 - 7.00 K/mcL Lymphocytes Abs 2.45 0.90 - 4.00 K/mcL Monocytes Abs 0.97 (H) 0.30 - 0.90 K/mcL Eosinophils Abs 0.21 0.00 - 0.50 K/mcL Basophils Abs 0.09 0.00 - 0.30 K/mcL IG Absolute 0.05 0.00 - 0.30 K/mcL Nucleated RBC 0.0 % Nucleated RBC Abs 0.00 0.00 - 0.00 K/mcL CT Kidney Stone Preliminary Result 1. There is a small punctate nonobstructive 2 mm calcification in the midpole of the left kidney. 2. I do not see hydronephrosis or evidence of other renal or ureteral calcifications bilaterally. No major inflammatory changes are seen. I am not seeing any renal mass. 3. Patient has had what appears to be a retroperitoneal lymph node dissection. There have also been prominent ventral hernias which underwent repair. There are still residual hernias along the right and left lateral aspects of the repair. On the left there is mesenteric fat. On the right there are nonobstructive loops of bowel. 4. Bilateral small fat-containing inguinal hernias. 5. Normal appendix and unremarkable abdominal gas pattern. [facility] Workstation ID: [id number] Procedures MDM Pain medicine given and a CT will be obtained. Blood pressure is elevated with a history of hypertension and he did take his medications this morning. Blood pressure improved with pain medication. CT with no obstructive uropathy. Given the worsening pain with movement Valium was given suspecting some element of muscle spasm. He is not having a bowel or bladder dysfunction, radicular symptoms, saddle anesthesia. He did get some relief after Valium and some fentanyl. No clear etiology for his pain at this time and he was advised to come back over the next 8-24 hours should he continue to have symptoms or immediately if he has any new or worsening concerns. He is going to follow-up with his PCP regardless. . Clinical Impression: SNOMED CT(R) 1. Left flank pain LEFT FLANK PAIN 2. Elevated blood pressure reading ELEVATED BLOOD PRESSURE 3. Hypertension, unspecified type HYPERTENSIVE DISORDER ED Disposition ED Disposition Condition Comment Discharge Vinh Colby discharged to home/self care in stable condition. Follow-up Information 1. Kailyn Looney DO. Specialty: Family Medicine [address] [facility] [address] [place] [address] 2. [facility]. Specialty: Emergency Medicine Why: If symptoms worsen [address] [place] [address] Contact information for after-discharge care Follow-up information has not been specified. New Prescriptions DIAZEPAM (VALIUM) 5 MG TABLET Take 1 (one) tablet (5 mg total) by mouth every 8 (eight) hours as needed for muscle spasms . HYDROCODONE-ACETAMINOPHEN (NORCO) 5-325 MG PER TABLET Take 1 (one) tablet by mouth every 4 (four) hours as needed for pain . LIDOCAINE 4 % PTMD Apply 1 patch topically daily . Leslie Chung DO 10/27/181820 ED Attestation This patient was seen primarily by myself and does not require an attestation. Pt comes in complaining of left lower back pain. Pt denies any dysuria or blood in the urine. Pt reports history of kidney stones but not for 20 years. Pt states that it feels similar. Pt appears uncomfortable at this time. resp even and unlabored. Pt denies any diarrhea or constipation.in this encounter Pt to ct. Dr Collado aware of this nurse placing pt on O2 at 2l/nc while resting after dilaudid given. Formatting of this note may be different from the original. [facility] ED Resident Note: NAME: Vinh Colby 48 y.o. CSN: [id number] PCP: Kailyn Looney DO History: Chief Complaint: Back Pain HPI: The history was obtained from the patient and spouse. Vinh is a 48 y.o. male who presents with a chief complaint of Back Pain. HPI patient with a past medical history of hypertension hyperlipidemia and testicular cancer status post left orchiectomy with abdominal lymphadenectomy presented to the emergency department for back pain. Patient was just seen here 4 hours ago in which a CT image was obtained revealing no renal stones or other acute intra-abdominal pathology. Etiology at that time was likely musculoskeletal and patient was treated symptomatically. Patient returns as back pain has progressively gotten worse with no improvement with symptomatic medications prescribed earlier. Patient states that it is in his low left lateral back, described as sharp stabbing pain that is really well localized and no radiation. Patient states that it hurts to put pressure in his left foot or to bend at the waist. Patient states that keeping his leg flexed while lying down improves the symptoms. Patient relates some nausea with the pain. Patient denies any fevers chills headaches blurry vision dizziness syncope presyncope chest pain shortness of breath abdominal pain vomiting diarrhea dysuria hematuria urine or stool incontinence, saddle anesthesias.. PMHx: Past Medical History: Diagnosis Date Erectile dysfunction Hypertension Hypertriglyceridemia Testicular cancer (HCC) PMSx: Past Surgical History: Procedure Laterality Date HERNIA REPAIR inguinal hernia TESTICLE SURGERY cancer 2004 FAM. Hx: Family History Problem Relation Age of Onset COPD Mother Coronary artery disease Mother at 66 of [place] SOC. Hx: Social History Social History Marital status: Spouse name: N/A Number of children: N/A Years of education: N/A Occupational History Not on file. Social History Main Topics Smoking status: Never Smoker Smokeless tobacco: Never Used Alcohol use Yes Comment: rare Drug use: No Sexual activity: Yes Partners: Female Other Topics Concern Not on file Social History Narrative No narrative on file MEDs: Discharge Medication List as of 10/28/2018 2:56 AM CONTINUE these medications which have NOT CHANGED Details azithromycin (Z-MELANIE) 5 day dose pack Take two tablets by mouth on day 1, then one tablet by mouth daily until finished.., Normal diazePAM (VALIUM) 5 MG tablet Take 1 (one) tablet (5 mg total) by mouth every 8 (eight) hours as needed for muscle spasms ., Starting 10/27/2018, Until Mon10/29/2018, Print HYDROcodone-acetaminophen (NORCO) 5-325 mg per tablet Take 1 (one) tablet by mouth every 4 (four) hours as needed for pain ., Starting 10/27/2018, Print hydrocortisone-pramoxine (ANALPRAM-HC) 2.5-1 % (4g) rectal cream Insert into the rectum 3 (three) times a day., Starting 01/15/2016, Until 01/14/17, Normal lidocaine 4 % PtMd Apply 1 patch topically daily ., Starting 10/27/2018, Until 11/26/2018, Print lisinopril (PRINIVIL,ZESTRIL) 20 MG tablet Take 1 (one) tablet (20 mg total) by mouth daily., Starting Mon08/31/2018, Normal predniSONE (DELTASONE) 10 MG tablet 4x3d then 3x3d then 2x3d then 1x3d., Normal sildenafil (VIAGRA) 100 MG tablet Take 1 (one) tablet (100 mg total) by mouth daily as needed for erectile dysfunction., Starting Mon08/31/2018, Until 09/30/2018, Normal ALL: No Known Allergies ROS: Review of Systems Positives and pertinent negatives as per HPI. All other systems were reviewed and are negative. Physical Exam: Patient Vitals for the past 24 hrs: BP Temp Temp src Pulse Resp SpO2 Height Weight 10/28/18 0230 (!) 166/90 - - 83 14 97 % - - 10/28/18 0200 (!) 159/83 - - 80 18 97 % - - 10/28/18 0130 (!) 186/81 - - 83 - 97 % - - 10/28/18 0100 (!) 185/108 - - 82 - 96 % - - 10/28/18 0030 (!) 178/102 - - 80 - 96 % - - 10/28/18 0015 (!) 173/100 - - 87 - 97 % - - 10/27/18 2330 (!) 180/100 - - 79 16 94 % - - 10/27/18 2244 (!) 172/100 - - - - - - - 10/27/18 2243 (!) 179/90 - - - - - - - 10/27/18 2234 (!) 195/110 99.3 F (37.4 C) Oral 86 18 100 % 5' 5 93.9 kg (207 lb) Physical Exam Constitutional: He is oriented to person, place, and time. He appears well- developed and well-nourished. HENT: Head: Normocephalic and atraumatic. Nose: Nose normal. Mouth/Throat: Oropharynx is clear and moist. Eyes: Conjunctivae and EOM are normal. Pupils are equal, round, and reactive to light. Neck: Normal range of motion. Neck supple. No tracheal deviation present. Cardiovascular: Normal rate, regular rhythm and normal heart sounds. Pulmonary/Chest: Effort normal and breath sounds normal. No stridor. Abdominal: Soft. He exhibits no distension. There is no tenderness. There is no rebound and no guarding. Laparotomy scar noted anterior midline abdomen. Anterior abdominal hernia present right of scar. Reduces passively. Musculoskeletal: Normal range of motion. He exhibits tenderness. He exhibits no edema. Arms: Tenderness to palpation left lateral lumbar region. No CVA tenderness. Limited range of motion of the left leg secondary to pain. Held in flexion Neurological: He is alert and oriented to person, place, and time. He has normal strength. No cranial nerve deficit or sensory deficit. Skin: Skin is warm and dry. Capillary refill takes less than 2 seconds. Psychiatric: He has a normal mood and affect. His behavior is normal. Thought content normal. Nursing note and vitals reviewed. Laboratory & Radiological Imaging (if done): Labs Reviewed LIPASE - Normal PT/INR - Normal Narrative: During the induction phase of oral anticoagulation, the INR may not reflect the anticoagulation status of the patient. Therapeutic ranges for INR's are: Most clinical situations: INR 2.0-3.0 Mechanical Prosthetic Valve: INR 2.5-3.5 Critical: INR >5.0 TROPONIN - Normal HEPATIC FUNCTION PANEL - Normal CT Angiogram Aorta Chest Abdomen Pelvis Preliminary Result 1. No aortic dissection, pulmonary embolism or other acute diagnostic abnormality in the chest, abdomen or pelvis. 2. Noncalcified 3 mm nodule at the level of the anterior right minor fissure, nonspecific. Followup is recommended per Fleischner society guidelines, as outlined below. 3. Status post mesh repair of a midline ventral hernia, with diffuse anterior bulging of the mesh and recurrent hernias along the lateral margin of the mesh bilaterally containing unremarkable small bowel on the right and only fat on the left. 4. Small fat-containing bilateral inguinal hernias. Fleischner Society guidelines for followup and management of solitary pulmonary nodules incidentally discovered in patients 35 years old or older: Nodule size <6 mm Low-risk patient: No routine followup. High-risk patient: Optional CT at 12 months. Nodules < 6 mm do not require routine followup, but certain patients at high risk with suspicious nodule morphology, upper lobe location, or both may warrant a 12-month followup. Nodule size = 6-8 mm Low-risk patient: CT at 6-12 months, then consider CT at 18-24 months. High-risk patient: CT at 6-12 months, then CT at 18-24 months. Nodule size > 8 mm Low- and high-risk patients: Consider CT at 3 months, PET/CT, or tissue sampling. Low-risk patients include individuals with minimal or absent history of smoking and other known risk factors. High-risk patients include individuals with a history of smoking or other known risk factors. Radiology 2017. Feb 23:345501. DOI: 10.1148/[id number]. WPT/vrs Workstation ID: [id number] Procedures: Procedures ED Course / Medical Decision Making: Patient seen and examined the ED for the reasons noted above. Patient recently seen here hours ago had a negative CT scan of the abdomen pelvis. Patient was diagnosed with muscular pain and treated symptomatically. Patient returns as his symptoms have not improved. Patient states that he has not taken any meds medications that he was prescribed at discharge as he was unsure when to resume these. Patient is uncomfortable on exam. Hemodynamically stable. Hypertension is noted. Physical exam patient does have some tenderness to palpation of the left lower back with hypertonicity noted. Positive straight leg test. Patient does not have any tearing pain that radiates towards the back. Patient denies any dysuria hematuria. No palpable abdominal masses. Due to the patient's bounce back visit so soon with this new onset back pain we will obtain a CT a of the aorta and treat pain symptomatically. Patient's laboratory analysis unremarkable. Lipase is normal troponin is negative. CTA of the aorta chest abdomen pelvis is negative for any dissection aneurysm PE or acute intra-abdominal pathology response for patient's symptoms. Of note 3 mm nodule was noted and patient will need repeat imaging in 12 months. Patient's pain was treated and has improved during the course of his stay with us. Patient has [place] 5 and Valium at home from his prior visit. Patient was offered admission for intractable pain however he declined at this time as he feels his pain has improved and he can continue medication therapy at home. I think this is appropriate. Patient is to follow-up with his PCP in 1 week. I do believe pain is secondary to musculoskeletal in nature. I provided verbal discharge instructions regarding their emergency department diagnosis. Prognosis, expected clinical course, and return precautions were reviewed. I answered their questions and re-iterated the importance of returning to the emergency department immediately for any new or worsening symptoms. She expressed understanding of the instructions and reported that all of their questions had been answered. Vinhbartolome Caceresjose ramonflaquito case was discussed with my attending physician who agrees with their ED management and final disposition. Please refer to their attestation to this encounter for additional information. Clinical Impression: SNOMED CT(R) 1. Musculoskeletal back pain BACKACHE Disposition: Patient is being Discharge to home Discharge Medication List as of 10/28/2018 2:56 AM Jace Collado DO ED Resident Physician [facility] (Please note that portions of this note have been completed with a voice recognition software. Efforts were made to correct any errors, but occasionally words are mis-transcribed.) Jace Collado DO Resident 10/28/18 0311 Associated Order(s): ECG 12-LEAD EKG 12-lead Date/Time: 10/27/2018 11:07 PM Performed by: CHETAN TIAN Authorized by: LESLIE CHUNG Interpreted by ED attending physician Comparison: compared with previous ECG from 10/25/2006 Similar to previous ECG Rhythm: sinus rhythm BPM: 88 Conduction: conduction normal ST Segments: ST segments normal Clinical impression: non-specific ECG Bed: 12 Expected date: Expected time: Means of arrival: Comments: Medic 26 Pt comes in for back pain. Pt was just seen 4 hours ago for same. Pt states that he filled prescription and put lidocaine patch on without relief. Pt able to stand from cot under own power and walk to ID cart. resp even and unlabored. Nad. Pt denies any new pain but it is just worse.in this encounter [facility] DEPART[facility] OF OT[facility]OLOG[facility] Patient Name: Vinh Colby Date: 1970 Billing Number: [id number] Date of Procedure: 12/11/2019 Time: 1110 Pre Operative Diagnoses: 1. Deviated Nasal Septum 2. Nasal Obstruction 3. Bilateral Inferior Turbinate Hypertrophy Post Operative Diagnoses: 1. Deviated Nasal Septum 2. Nasal Obstruction 3. Bilateral Inferior Turbinate Hypertrophy Procedures: 1. Septoplasty 2. Bilateral Inferior Turbinate Reduction with Radiofrequency Ablation via Celon Surgeon: Dr. Gil Duran DO Tool Lathe Operator: 1. Maci Duran DO, ENT Resident PGY-5 2. Charity Reyes DO, ENT Resident PGY-1 Anesthesia: General Endotracheal Anesthesia Findings: Severe deviated septum to the right with severe caudal deflection anteriorly and septum abutting right lateral nasal wall along the mid and posterior portion of the septum Indications: Vinh is a now 49 y.o. male with a history of chronic nasal congestion obstruction, postnasal drainage and irritant cough that is been going on for years. Patient underwent a CT sinus scan which revealed a severely deviated septum to the right, along with bilateral inferior turbinate hypertrophy. Patient was given Zyrtec along with Tessalon Perles. He states his medications did not help his symptoms. Due to the fact the patient was not getting better with traditional medicine, this is removed patient proceed to the operating room perform a septoplasty and bilateral inferior turbinate reduction. All risks, benefits and alternatives were thoroughly discussed the patient and all questions were thoroughly answered. Informed several times previous ENT clinic visit. Risks explained to patient included but were not exclusive to the following: Infection, septal perforation, need for additional procedures, bleeding. Description: After verification of informed consent, the patient was brought to the operating room and placed in the supine position. General endotracheal anesthesia was induced. A time out was performed by Dr. Gil Duran to verify the correct patient and procedure, and everyone in the room was in agreement. The nasal septum was injected with 1% lido with [id number] epinephrine and a total of 10 cc was used. Afrin soaked pledgets were then placed into the nasal cavity and allowed to remain for several minutes to allow for decongestion and vasoconstriction. During this time, the patient was then prepped and draped in the usual fashion, and all necessary equipment, including the 0 degree rigid endoscope was set-up. A prieto incision was then made into the anterior left septum with a 15 blade scalpel. The sharp end of the freer elevator was used to initially elevate a mucoperichondrial flap on the left side of the septum, with a transition to the broad end of the freer and long tip nasal speculum to elevate the mucopericondrium off the quadrangular cartilage until the bony-cartilagenous portion of the septum was encountered. At this point, the long tipped nasal speculum was removed and the 0 degree nasal endoscope was then used to further elevate the mid and posterior portions of the mucoperichondrium off the nasal septum. The broad end of the freer, along with a 6.0 hicks suction was used primarily, and on the floor of the nasal septum, a D- knife was then used to elevate the mucoperichondrium off the maxillary crest. The sharp end of the freer was used to incise through the quadrangular cartilage and access the patients right side, keeping at least one cm of cartilage anteriorly and superiorly to maintain structural integrity of the nose. A similar mucoperichondrial flap was elevated on the right side, with aid of the 0 degree endoscope, broad end of the freer, 6.0 hicks suction and D knife. A balinger blade was used to make a dorsal cut through the septal cartilage. All deviated bone and cartilage was removed with miguel forceps. Next attention was taken to the inferior turbinates. They were laterally out fractured with a septal displacer. Celon submucosal probe was inserted submucosally and advanced to posterior aspect of the turbinate. Multiple applications of submucosal bipolar energy were applied for reduction as it was retracted. This was first done on the left side, followed by the right. The septal incision was closed in a simple interrupted fashion with 4.0 chromic suture. The septal flaps re-approximated with a 5-0 plain gut stitch on a veda needle done in a whip stitch fashion, and further reapproximated with a septal stapler. The nose was suctioned free of all blood. Landis splints lined with Surgicel were placed for septal support and nasal airway patency. The patient tolerated the procedure well and was transferred to the recovery room in stable condition. Dr. Gil Duran was present during or performed the essential portions of the procedure and was involved in all medical and surgical decision-making. Specimens: Septal contents Estimated Blood Loss: 40 cc Complications: None. documented in this encounter Gil Duran DO - 12/11/2019 10:19 AM ESTMcEldSandro blood DO - 11/29/2019 9:31 AM EST H&P Notes (unrecognized sect ion and content) INTERVAL HISTORY AND PHYSICAL Patient Name: Vinh Colby Admit Date: MR #: [id number] : 1970 The H&P has been reviewed and the patient has been examined. I concur with the findings of the H&P. There are no significant changes. It is appropriate to proceed with the planned procedure. Gil Duran DO 12/11/2019 10:19 AM Assessment and Plan 1. Pre-op testing CBC, Comprehensive Metabolic Panel Chief Complaint Patient presents with Pre-operative Medical Risk Stratification History of Present Illness Please see below regarding status of active medical conditions and assessment and plan regarding details of preoperative medical risk stratification. This is a very pleasant 49-year-old gentleman who presented for preoperative evaluation prior to septoplasty and turbinate reduction with plan for general anesthesia and OR date of 12/11/2019. I was requested for preoperative evaluation by Dr. Duran. Patient has a history of nasal congestion and chronic sinusitis along with a history of essential hypertension and prior history of testicular cancer. PHYSICAL EXAMINATION General: Demonstrates an awake, alert, pleasant gentleman. Alert, oriented, appropriate. Neck: Supple without JVD or carotid bruits. Heart: S1, S2 intact without murmurs, clicks, or gallops. Lungs: Clear to auscultation bilaterally without wheezes or rhonchi. Abdomen: Soft, positive bowel sounds. Extremities: Warm. He had no edema. Cranial nerves 2 through 12 were grossly intact. Skin: Warm and dry. Head: Atraumatic, normocephalic. Pupils equal, react to light and accommodation. Oral cavity: Without lesions/ Osteopathic: Benign. FUNCTIONAL CAPACITY Greater than 4 METs. He is active, climbs stairs. Denies any overt anginal symptoms. REVIEW OF SYSTEMS No chest pain. No palpitations. No shortness of breath. No cough. Does indicate sinus congestion and snoring. ANESTHESIA HISTORY Benign per patient interview. IMPRESSION 1.This 49-year-old gentleman presents for preoperative evaluation prior to having septoplasty and turbinate reduction. 2.History of chronic sinusitis and nasal congestion. 3.Essential hypertension, on amlodipine and valsartan combination drug, Exforge. Instructed to hold due to its ARB component the morning of the procedure. Blood pressure was slightly uncontrolled today at 145/86. Patient is asymptomatic. 4.History of testicular cancer. 5.In summary, this patient's functional capacity exceeds the 4 METs threshold without any active anginal symptoms. He has no active cardiac disorders on my exam review and, therefore, I would consider him an acceptable risk for the planned low risk procedure based on ACC/AHA guidelines, and he may proceed. 6.Formally, his revised cardiac index demonstrates 0 predictors and his risk of major cardiovascular complications associated with this procedure is 0.4%. 7.Again, he does score high risk on sleep apnea screening. Continuous pulse oximetry and close monitoring are recommended. He may be sensitive to narcotic therapy. 8.Labs to be reviewed. A letter will be sent to surgeon of record, Dr. Duran. Thank you for the opportunity to evaluate this patient. Past Medical History: Diagnosis Date Erectile dysfunction Hypertension Hypertriglyceridemia Testicular cancer (HCC) Past Medical History Pertinent Negatives: Diagnosis Date Noted Complication of anesthesia 11/29/2019 Past Surgical History: Procedure Laterality Date HERNIA REPAIR inguinal hernia TESTICLE SURGERY cancer 2005 Social History Tobacco Use Smoking status: Never Smoker Smokeless tobacco: Never Used Substance Use Topics Alcohol use: Yes Comment: rare Family History Problem Relation Age of Onset COPD Mother Coronary artery disease Mother at 66 of [place] @ Prior to Admission medications Medication Sig Taking? Dose Freq amLODIPine-valsartan (EXFORGE) 5-160 mg per tablet Take 1 (one) tablet by mouth daily . Yes 1 tablet, Oral, Daily fish oil-omega-3 fatty acids 300-1,000 mg capsule Take 2 g by mouth daily . Yes 2 g, Oral, Daily niacin 500 MG tablet Take 500 mg by mouth daily with breakfast . Yes 500 mg, Oral, Daily with breakfast cetirizine (ZYRTEC) 10 MG tablet Take 1 (one) tablet (10 mg total) by mouth daily . Patient not taking: Reported on 10/11/2019 . 10 mg, Oral, Daily Patient not taking: Reported on 10/11/2019 . diclofenac sodium 1 % Gel Apply 1 (one) g topically 4 (four) times a day . 1 g, Topical (Top), 4 times daily hydroCHLOROthiazide (MICROZIDE) 12.5 mg capsule Take 1 (one) capsule (12.5 mg total) by mouth daily . 12.5 mg, Oral, Daily scopolamine (TRANSDERM-SCOP) 1 mg over [address] 1 (one) patch on the skin every 72 hours . Patient not taking: Reported on 09/06/2019 . 1 patch, Transdermal, Every 72 hours Patient not taking: Reported on 09/06/2019 . testosterone cypionate (DEPOTESTOTERONE CYPIONATE) 100 mg/mL injection Inject 100 mg into the shoulder, thigh, or buttocks 28day supply Reasons: Deficiency of a Substance that Promotes Masculinization. 100 mg, Intramuscular, 28day supply No Known Allergies Review of Systems Constitution: (negative) HENT: (negative) Eyes: (negative) Respiratory: (negative) no cough, no shortness of breath Cardiovascular: (negative) no chest pain, no leg swelling, no palpitations - Exercise capacity: Greater than 4 METS Gastrointestinal: (negative) Genitourinary: (negative) Musculoskeletal: (negative) Skin: (negative) Neurological: (negative) Hematological: (negative) Physical Exam BP (!) 145/86 Pulse 87 Temp 98 F (36.7 C) (Temporal) Resp 18 Ht 5' 5 Wt 100.8 kg (222 lb 4.8 oz) SpO2 94% BMI 36.99 kg/m Data Preprocedure Sleep Apnea Assessment - High Risk 3/3 Sleep Apnea in the patient's Active Problem List or Medical History: no 1. History of apparent airway obstruction during sleep: (1 point for this category) Do you snore frequently, or snore loud enough to be heard through a closed door?: yes Do you awaken from sleep with a choking sensation or have periods during sleep when someone has observed you pausing between breaths?: yes 2. Somnolence of the patient: (1 point for this category) Do you find yourself frequently sleepy despite adequate hours of sleep the night before?: yes Do you fall asleep easily while: watching TV, reading, riding in or driving a car?: yes 3. Predisposing physician characteristics: (1 point for this category, 2 points if the BMI ? 40) BMI (Calculated): 37 Neck Circumference (inches): 19 inches documented in this encounter (unrecognized sect ion and content) No Status Records FoundNo Status Records FoundNo Status Records FoundNo Status Records Found INFORMATION SOURCE (unrecogn ized section and content) DATE CREATED AUTHOR AUTHOR'S ORGANIZ ATION 05/29/2020 [facility] DATE CREATED AUTHOR AUTHOR'S ORGANIZ ATION 10/12/2020 [facility] DATE CREATED AUTHOR AUTHOR'S ORGANIZ ATION 12/13/2022 [facility] FOR RECORDS PERTAINING TO PATIENTS WHO ARE OR HAVE BEEN ENROLLED IN A CHEMICAL DEPENDENCY/SUBSTANCEABUSE PROGRAM, SOME INFORMATION MAY BE OMITTED. This clinical summary was aggregated from multiple sources. Caution should be exercised in using it in the provision of clinical care. This summary normalizes information from multiple sources, and as a consequence, information in this document may materially change the coding, format and clinical context of patient data. In addition, data may be omitted in some cases. CLINICAL DECISIONS SHOULD BE BASED ON THE PRIMARY CLINICAL RECORDS. [facility]. provides no warranty or guarantee of the accuracy or completeness of information in this document.
[2023-11-27 10:18] LABS: Color, Urine Yellow (Yellow); Glucose, Dipstick Normal (Normal); Ketone-Dipstick Negative (Negative); Leukocyte Esterase-Dipstick 25 /ul (Negative); Nitrite-Dipstick Negative (Negative); Occult Blood-Urine Negative /ul (Negative); Protein-Dipstick 30 mg/dl (Negative); Urine Bilirubin Dipstick Negative (Negative); Urine Clarity Clear (Clear); Urine Urobilinogen Normal (Normal)
[2023-11-27 10:20] LABS: Absolute Lymphocyte Count 1.55 X10^3/uL (0.83-4.51); Absolute Neutrophil Count 3.4 X10^3/uL (2.0-7.7); Basophil# 0.03 X10^3/uL; Basophil% 0.5 % (0-1); Eosinophil# 0.08 X10^3/uL; Eosinophils% 1.5 % (0-5); Hematocrit 45.7 % (40-54); Hemoglobin 15.8 g/dL (13.0-16.5); Lymphocyte # 1.55 X10^3/ul (0.83-4.51); Lymphocyte % 28.2 % (19-41); Mean Corp Hgb Conc 34.6 g/dL (32-36); Mean Corpuscular Volume 89.8 fL (80-94); Mean Platelet Vol. 10.3 fl (6.2-12.0); Monocyte# 0.46 X10^3/uL; Monocyte% 8.4 % (0-10); NRBC Flagged by Analyzer 0 % (0-5); Neutrophil # 3.37 X10^3/uL (2.7-7.7); Neutrophil % 61.2 % (47-70); Platelet Count 231 K/mm3 (150-450); RBC Distribution Width CV 12.7 % (11.6-14.6); RBC Distribution Width SD 41.8 fl (35.1-43.9); Red Blood Count 5.09 M/mm3 (4.6-6.2); White Blood Count 5.5 K/mm3 (4.4-11.0)
[2023-11-27 10:27] LABS: Mucous, Urine 1+ /hpf (<or=2+); Squamous Epithelial Cells - UA 0-5 SEEN /hpf (0-5); White Blood Cells 0-5 SEEN /hpf (0-5)
[2023-11-27 10:43] LABS: AST(SGOT) 23 U/L (15-37); Alanine Aminotransfer ALT/SGPT 35 U/L (16-61); Albumin, Serum 3.7 g/dL (3.2-5.0); Alkaline Phosphatase 88 U/L (45-117); Anion Gap 5 (5-15); BUN 12 mg/dL (7-18); BUN/Creat Ratio 11.4 RATIO (10-20); Calcium,Total 9.1 mg/dL (8.5-10.1); Chloride 107 mmol/L (98-107); Cholesterol 175 mg/dL (200); Creatinine, Serum 1.05 mg/dL (0.70-1.30); EST Glomerular Filtration Rate 78 mL/min (>60); Est Glom Filt Rate - Afr Amer 95 mL/min (>60); Globulin 3.8 g/dL (2.2-4.2); Glucose 93 mg/dL (74-106); High Density Lipoprotein 54 mg/dL; PSA,Total - Annual Screen 0.55 ng/mL (0.00-4.00); Protein, Total 7.5 g/dL (6.4-8.2); Sodium Level 140 mmol/L (136-145); T4 Free Direct 1.02 ng/dL (0.76-1.46); Triglycerides 153 mg/dL; Very Low Density Lipoprotein 31 mg/dL (5-40)
== END | disposition home or self-care (01) ==
LOC: MFPLAB 08:20
PROVIDERS: PCP Family Medicine; Visit Provider Family Medicine
DX: E06.3 Autoimmune thyroiditis (principal); I10 Essential (primary) hypertension; Z12.5 Encounter for screening for malignant neoplasm of prostate
CPT/HCPCS: 36415; 80053; 80061; 81001; 84153; 84439; 84443; 85025; G0103

== ENCOUNTER → 2024-05-30 | Outpatient (CLI) | payer OTHER, SELFPAY ==
[2024-05-30 07:48] LABS: Red Blood Cells-Urine 0 SEEN /hpf (0-5)
[2024-05-30 09:58] LABS: Absolute Lymphocyte Count 1.91 X10^3/uL (0.83-4.51); Absolute Neutrophil Count 3.8 X10^3/uL (2.0-7.7); Basophil# 0.06 X10^3/uL; Basophil% 0.9 % (0-1); Eosinophils% 1.5 % (0-5); Hematocrit 46.2 % (40-54); Hemoglobin 15.6 g/dL (13.0-16.5); Lymphocyte # 1.91 X10^3/ul (0.83-4.51); Lymphocyte % 29.3 % (19-41); Mean Corp Hgb Conc 33.8 g/dL (32-36); Mean Corpuscular Hgb 29.9 pg (27.0-32.0); Mean Corpuscular Volume 88.5 fL (80-94); Mean Platelet Vol. 10.3 fl (6.2-12.0); Monocyte# 0.63 X10^3/uL; Monocyte% 9.7 % (0-10); NRBC Flagged by Analyzer 0 % (0-5); Neutrophil % 58.3 % (47-70); Platelet Count 243 K/mm3 (150-450); RBC Distribution Width CV 12.7 % (11.6-14.6); RBC Distribution Width SD 41.1 fl (35.1-43.9); Red Blood Count 5.22 M/mm3 (4.6-6.2); White Blood Count 6.5 K/mm3 (4.4-11.0)
[2024-05-30 10:04] LABS: Color, Urine Yellow (Yellow); Glucose, Dipstick Normal (Normal); Ketone-Dipstick Negative (Negative); Leukocyte Esterase-Dipstick Negative /ul (Negative); Nitrite-Dipstick Negative (Negative); Occult Blood-Urine Negative /ul (Negative); Protein-Dipstick Negative (Negative); Urine Bilirubin Dipstick Negative (Negative); Urine Clarity Clear (Clear); Urine Urobilinogen Normal (Normal)
[2024-05-30 10:12] LABS: Bacteria RARE /hpf (None Seen); Mucous, Urine RARE /hpf (<or=2+); Squamous Epithelial Cells - UA 0-5 SEEN /hpf (0-5); White Blood Cells 0-5 SEEN /hpf (0-5)
[2024-05-30 10:25] LABS: ALB/GLOB Ratio 0.9 RATIO (0.9-2.4); AST(SGOT) 19 U/L (15-37); Alanine Aminotransfer ALT/SGPT 31 U/L (16-61); Albumin, Serum 3.6 g/dL (3.2-5.0); Alkaline Phosphatase 89 U/L (45-117); Anion Gap 5 (5-15); BUN 13 mg/dL (7-18); BUN/Creat Ratio 13.6 RATIO (10-20); Calcium,Total 8.8 mg/dL (8.5-10.1); Chloride 107 mmol/L (98-107); Cholesterol 179 mg/dL (200); Creatinine, Serum 0.96 mg/dL (0.70-1.30); EST Glomerular Filtration Rate 87 mL/min (>60); Est Glom Filt Rate - Afr Amer 105 mL/min (>60); Globulin 4.2 g/dL (2.2-4.2); Glucose 93 mg/dL (74-106); High Density Lipoprotein 57 mg/dL; Magnesium 2.3 mg/dL (1.6-2.6); Potassium 3.4 mmol/L (3.5-5.1); Protein, Total 7.8 g/dL (6.4-8.2); Sodium Level 139 mmol/L (136-145); T4 Free Direct 0.96 ng/dL (0.76-1.46); Thyroid Stim Hormone (TSH) 3.06 uIU/mL (0.358-3.74); Triglycerides 118 mg/dL; Very Low Density Lipoprotein 24 mg/dL (5-40)
== END | disposition home or self-care (01) ==
PROVIDERS: PCP Family Medicine; Referring Provider Family Medicine; Visit Provider Family Medicine
DX: I10 Essential (primary) hypertension (principal); E06.3 Autoimmune thyroiditis
CPT/HCPCS: 36415; 80053; 80061; 81001; 83735; 84439; 84443; 85025

== ENCOUNTER → 2024-07-04 | Outpatient (CLI) | payer OTHER, SELFPAY ==
[2024-07-04 10:13] LABS: Vitamin B12 630 pg/mL (211-911)
== END | disposition home or self-care (01) ==
LOC: MFPLAB 08:28
PROVIDERS: PCP Family Medicine; Visit Provider Family Medicine
DX: R41.3 Other amnesia (principal)
CPT/HCPCS: 36415; 82607

== ENCOUNTER → 2024-08-30 | Outpatient (CLI) | payer OTHER, SELFPAY ==
--- NOTE | 2024-08-30 08:42 | RAD_ITS ---
INDICATION: Pain, possible heel spur EXAMINATION/TECHNIQUE: X-RAY - LEFT XR Foot Min 3 Views 3 VIEWS COMPARISON: FINDINGS: SOFT TISSUES: No soft tissue swelling or gas. No radiopaque foreign body. BONES/JOINTS: No acute fracture or subluxation.. Normal alignment. Small subcentimeter calcaneal spurring. Preservation of the joint space.. No sclerotic or destructive changes observed. RAD/Foot min 3 Views IMPRESSION: Small calcaneal spurring. Electronically Signed: De Brito DO at 16:56 EDT ,
== END | disposition home or self-care (01) ==
LOC: MTRAD 08:42
PROVIDERS: PCP Family Medicine; Referring Provider Family Medicine; Visit Provider Family Medicine
DX: M79.672 Pain in left foot (principal)
CPT/HCPCS: 73630

== ENCOUNTER → 2024-11-28 | Outpatient (CLI) | payer OTHER, SELFPAY ==
[2024-11-28 07:55] LABS: Absolute Lymphocyte Count 1.87 X10^3/uL (0.83-4.51); Absolute Neutrophil Count 3.9 X10^3/uL (2.0-7.7); Basophil# 0.05 X10^3/uL; Basophil% 0.8 % (0-1); Eosinophil# 0.11 X10^3/uL; Eosinophils% 1.7 % (0-5); Hematocrit 45.9 % (40-54); Hemoglobin 15.9 g/dL (13.0-16.5); Lymphocyte # 1.87 X10^3/ul (0.83-4.51); Lymphocyte % 28.2 % (19-41); Mean Corp Hgb Conc 34.6 g/dL (32-36); Mean Corpuscular Hgb 30.8 pg (27.0-32.0); Mean Platelet Vol. 9.7 fl (6.2-12.0); Monocyte# 0.66 X10^3/uL; NRBC Flagged by Analyzer 0 % (0-5); Neutrophil % 58.8 % (47-70); Platelet Count 237 K/mm3 (150-450); RBC Distribution Width CV 12.9 % (11.6-14.6); RBC Distribution Width SD 42.3 fl (35.1-43.9); Red Blood Count 5.16 M/mm3 (4.6-6.2); White Blood Count 6.6 K/mm3 (4.4-11.0)
[2024-11-28 08:22] LABS: ALB/GLOB Ratio 0.9 RATIO (0.9-2.4); AST(SGOT) 31 U/L (15-37); Alanine Aminotransfer ALT/SGPT 35 U/L (16-61); Albumin, Serum 3.6 g/dL (3.2-5.0); Alkaline Phosphatase 78 U/L (45-117); Anion Gap 7 (5-15); BUN 16 mg/dL (7-18); BUN/Creat Ratio 15.4 RATIO (10-20); Calcium,Total 9.1 mg/dL (8.5-10.1); Chloride 106 mmol/L (98-107); Cholesterol 196 mg/dL (200); Creatinine, Serum 1.04 mg/dL (0.70-1.30); EST Glomerular Filtration Rate 79 mL/min (>60); Est Glom Filt Rate - Afr Amer 95 mL/min (>60); Glucose 95 mg/dL (74-106); High Density Lipoprotein 65 mg/dL; PSA,Total - Annual Screen 0.54 ng/mL (0.00-4.00); Potassium 4.1 mmol/L (3.5-5.1); Protein, Total 7.6 g/dL (6.4-8.2); Sodium Level 140 mmol/L (136-145); T4 Free Direct 0.88 ng/dL (0.76-1.46); Triglycerides 125 mg/dL; Very Low Density Lipoprotein 25 mg/dL (5-40)
== END | disposition home or self-care (01) ==
LOC: LAB 07:30
PROVIDERS: PCP Family Medicine; Referring Provider Family Medicine; Visit Provider Family Medicine
DX: I10 Essential (primary) hypertension (principal); E06.3 Autoimmune thyroiditis; Z12.5 Encounter for screening for malignant neoplasm of prostate
CPT/HCPCS: 36415; 80053; 80061; 84153; 84439; 84443; 85025; G0103

== ENCOUNTER → 2025-05-29 | Outpatient (CLI) | payer OTHER, SELFPAY ==
--- OUTSIDE RECORDS SUMMARY | 2025-05-29 07:22 | XMS RPT_ITS | CCD ---
Author Organization [facility] Care Team Providers Care Appointment Clerk Name Role Phone Kailyn Looney Unavailable EARLENE COWAN Attending Unavail able EARLENE COWAN Referring Unavail able KAILYN LOONEY Primary Care Unavaila ble LETICIAAPEARLENE LEHMAN Admitting Unavail able EARLENE COWAN Attending Unavail able KAILYN LOONEY Primary Care Unavaila ble EARLENE COWAN Admitting Unavail able KAILYN LOONEY Primary Care Unavaila ble SANDRO PAYNE Attending Unavailable Kailyn Looney Primary Care Provider KAILYN LOONEY Primary Care Unavaila ble AAYUSH, KAILYN ESCOBEDO Admitting Unavaila ble KAILYN LOONEY Primary Care Unavaila ble GAIBLE, SANDRA ALVARADO Admitting Unavailab le GAIBLE, SANDRA ALVARADO Referring Unavailab le KAILYN LOONEY Primary Care Unavaila ble Kailyn Looney Primary Care Provider KAILYN LOONEY Attending Unavaila ble KAILYN LOONEY Primary Care Unavaila Kailyn Vega Primary Care Unavailable Kailyn Ibrahim Attending Unavailable Kailyn Ibrahim Referring Unavailable Kailyn Ibrahim Primary Care Unavailable Kailyn Ibrahim Attending Unavailable Kailyn Ibrahim Referring Unavailable Kailyn Ibrahim Primary Care Unavailable Kailyn Ibrahim Attending Unavailable Kailyn Ibrahim Attending Unavailable Kailyn Ibrahim Referring Unavailable Kailyn Ibrahim Primary Care Unavailable Medications Current Medications Medication Drug Class(es) Dates [...] daily . 30 tablet 1 07/30/2020 Active Start: 12-26-2019 take 1 tablet by kelly th once daily amLODIPine-valsartan (EXFORGE) 5-160 mg per tablet Indications: Hypertension, essential Take 1 (one) tablet by mouth daily . 30 tablet 1 12/26/2019 Active Start: 09-04-2019 End: 10-28-2019 take 1 tablet by mouth once daily amLODIPine-valsartan (EXFORGE) 5-160 mg per tablet Indications: Hypertension, essential Take 1 (one) tablet by mouth daily . 30 tablet 1 10/28/2019 Active Start: 06-20-2019 take 1 tablet by kelly th once daily amLODIPine-valsartan (EXFORGE) 5-160 mg per tablet Indications: Hypertension, essential Take 1 (one) tablet by mouth daily . 30 tablet 1 06/20/2019 Active azelastine hydrochloride 0.137 mg/actuat metered dose nasal spray (3 sources) Histamine-1 Receptor Antagonist Start: 12-31-2019 End: 01-30-2020 azelastine (ASTELIN) 137 mcg (0.1 %) nasal spray Indications: Chronic rhinitis 2 (two) sprays by Each Nare route 2 (two) times a day . 30 mL 3 12/31/2019 01/30/2020 Active cephalexin 500 mg oral capsule (3 sources) Cephalosporin Antibacterial Start: 12-11-2019 End: 12-18-2019 take 1 capsule by mouth twice daily cephALEXin (KEFLEX) 500 MG capsule Take 1 (one) capsule (500 mg total) by mouth 2 (two) times a day for 7 days . 14 capsule 0 12/11/2019 12/18/2019 Active cetirizine hydrochloride 10 mg oral tablet (11 sources) Histamine-1 Receptor Antagonist Start: 08-02-2019 End: 08-01-2020 take 1 tablet by mouth once daily cetirizine (ZYRTEC) 10 MG tablet Indications: Chronic sinusitis, unspecified location , PND (post-nasal drip) Take 1 (one) tablet (10 mg total) by mouth daily . 30 tablet 3 08/02/2019 Active dexamethasone 6 mg oral tablet (1 source) Corticosteroid Start: 08-03-2022 take 6 mg by mouth once daily Dexamethasone Active 6 MG PO DAILY August 03, 2022 12:00am diclofenac sodium 0.01 mg/mg topical gel (12 sources) Nonsteroidal Anti-inflammatory Drug Start: 07-19-2019 diclofenac sodium 1 % Gel Indications: Trigger middle finger of left hand Apply 1 (one) g topically 4 (four) times a day . 100 g 0 07/19/2019 Active hydroCHLOROthiazide 12.5 mg oral capsule (16 sources) Thiazide Diuretic Start: 03-11-2019 End: 04-05-2019 take 1 capsule by mouth once daily hydroCHLOROthiazide (MICROZIDE) 12.5 mg capsule Indications: Hypertension, essential Take 1 (one) capsule (12.5 mg total) by mouth daily . 30 capsule 5 04/05/2019 Active Start: 01-11-2019 take 1 capsule by [facility] once daily hydroCHLOROthiazide (MICROZIDE) 12.5 mg capsule Indications: Elevated blood pressure reading in office with diagnosis of hypertension Take 1 (one) capsule (12.5 mg total) by mouth daily . 30 capsule 1 01/11/2019 Active lidocaine 0.04 mg/mg medicated patch (3 sources) Antiarrhythmic, Amide Local Anesthetic Start: 10-27-2018 End: 11-26-2018 lidocaine 4 % PtMd Apply 1 patch topically daily . 4 patch 0 10/27/2018 11/26/2018 Active methocarbamol 750 mg oral tablet (1 source) Muscle Relaxant Start: 11-02-2018 End: 11-12-2018 take 1 tablet by mouth twice daily as needed for muscle spasms methocarbamol (ROBAXIN) 750 MG tablet Indications: Acute left-sided low back pain without sciatica Take 1 (one) tablet (750 mg total) by mouth 2 (two) times a day as needed for muscle spasms . 20 tablet 0 11/02/2018 11/12/2018 Active mupirocin 0.02 mg/mg topical ointment (8 sources) RNA Synthetase Inhibitor Antibacterial Start: 12-11-2019 mupirocin (BACTROBAN) 2 % ointment Apply topically 2 (two) times a day Apply to both nostrils twice daily . 22 g 0 12/11/2019 Active ondansetron 8 mg oral tablet (10 sources) Serotonin-3 Receptor Antagonist Start: 12-11-2019 End: 12-18-2019 take 4 mg by mouth every eight hours as needed ondansetron (ZOFRAN) 8 MG tablet Take 0.5 (one-half) tablet (4 mg total) by mouth every 8 (eight) hours as needed for nausea . 20 tablet 0 12/11/2019 Active Start: 10-27-2018 End: 10-27-2018 ondansetron (ZOFRAN) injecti on 4 mg oseltamivir 75 mg oral capsule (1 source) Neuraminidase Inhibitor Start: 11-13-2017 End: 11-23-2017 take 1 capsule by mouth twice daily oseltamivir (TAMIFLU) 75 MG capsule Indications: Influenza A Take 1 (one) capsule (75 mg total) by mouth 2 (two) times a day for 10 days. 10 capsule 0 11/13/2017 11/23/2017 Active oxymetazoline hydrochloride 0.5 mg/ml nasal spray (3 sources) Start: 12-11-2019 End: 12-14-2019 oxymetazoline (AFRIN) 0.05 % nasal spray Instill 2 (two) sprays into each nostril 2 (two) times a day as needed (oozing) . 30 mL 0 12/11/2019 12/14/2019 Active Start: 12-11-2019 End: 12-11-2019 2 spray, Each Nare, 2 times daily, First dose on Mon12/11/19 at 1215 72 hr scopolamine 0.0139 mg/hr transdermal system (11 sources) Anticholinergic Start: 08-16-2019 scopolamine (TRANSDERM-SCOP) 1 mg over 3 days patch Indications: Motion sickness, initial encounter Place 1 (one) patch on the skin every 72 hours . 4 patch 1 08/16/2019 Active sildenafil 100 mg oral tablet (19 sources) Phosphodiesterase 5 Inhibitor Start: 06-08-2020 take 1 tablet by mouth once daily as needed sildenafiL (VIAGRA) 100 MG tablet Take 1 (one) tablet (100 mg total) by mouth daily as needed . 30 tablet 2 06/08/2020 Active Start: 08-04-2016 End: 05-05-2019 take 1 tablet by mouth once daily as needed sildenafil (VIAGRA) 100 MG tablet Indications: Erectile dysfunction, unspecified erectile dysfunction type Take 1 (one) tablet (100 mg total) by mouth daily as needed for erectile dysfunction . 10 tablet 5 04/05/2019 Active sodium chloride 0.111 meq/ml nasal spray (10 sources) Start: 12-11-2019 End: 01-10-2020 take 2 spray(s) nasal route every hour sodium chloride ([place] Nasal) 0.65 % nasal spray Instill 2 (two) sprays into each nostril every hour while awake . 15 mL 5 12/11/2019 01/10/2020 Active Start: 12-11-2019 End: 12-11-2019 2 spray, Each Nare, As neede d, moisturization, Starting 12/11/19 at 1115 Start: 10-27-2018 End: 10-28-2018 sodium chloride (PF) (NS) 0. 9 % contrast line flush 10 mL Start: 10-27-2018 End: 10-27-2018 sodium chloride (PF) (NS) fl ush 5 mL Completed/Discontinued Medications Medication Drug Class(es) Dates Sig (Normalized) Sig (Original) acetaminophen 325 mg / HYDROcodone bitartrate 7.5 mg oral tablet (13 sources) Opioid Agonist Start: 12-11-2019 End: 12-11-2019 HYDROcodone-acetam inophen (NORCO) 7.5-325 mg per tablet 2 tablet Start: 12-11-2019 take 1 tablet by kelly th once as needed for pain, then take 2 tablets by mouth every four hours as needed for pain HYDROcodone-acetaminophen (NORCO) 7.5-32 5 mg per tablet Indications: Acute post-operative pain Take 1 (one) tablet to 2 (two) tablets by mouth every 4 (four) hours as needed (moderate to severe pain) . 40 tablet 0 12/11/2019 Active Start: 10-27-2018 End: 12-14-2018 take 1 tablet by mouth every four hours as needed for pain HYDROcodone-acetaminophen (NORCO) 5-325 mg per tablet Indications: Left flank pain Take 1 (one) tablet by mouth every 4 (four) hours as needed for pain . 12 tablet 0 10/27/2018 12/14/2018 Discontinued acetaminophen 325 mg / oxyCODONE hydrochloride 5 mg oral tablet (1 source) Opioid Agonist Start: 12-11-2019 End: 12-11-2019 take 1 tablet by mouth every twenty-four hours as needed 1 tablet, Oral, Once as needed, moderate to severe pain, Starting 12/11/19 at 1343, For 1 dose, PACU (only) [] While in PACU when tolerating orals. [] Use oral route first, if tolerated. albuterol 0.83 mg/ml inhalant solution (1 source) beta2-Adrenergic Agonist Start: 12-11-2019 End: 12-11-2019 take 2.5 mg by inhalation every twenty-four hours as needed 2.5 mg, Inhalation, Once as needed, wheezing, Starting 12/11/19 at 1343, For 1 dose, PACU (only) amLODIPine 5 mg oral tablet (3 sources) Dihydropyridine Calcium Channel Jose David Start: 04-29-2019 End: 07-19-2019 take 1 tablet by mouth once daily amLODIPine (NORVASC) 5 MG tablet Take 1 (one) tablet (5 mg total) by mouth daily . 30 tablet 1 04/29/2019 07/19/2019 Discontinued Start: 03-15-2019 take 1 tablet by kelly th once daily amLODIPine (NORVASC) 5 MG tablet Take 1 (one) tablet (5 mg total) by mouth daily . 30 tablet 1 03/15/2019 Active amLODIPine 5 mg / telmisartan 40 mg oral tablet (2 sources) Dihydropyridine Calcium Channel Jose David, Angiotensin 2 Receptor Jose David Start: 05-20-2019 End: 07-19-2019 take 1 tablet by mouth once daily telmisartan-amLODIPine (TWYNSTA) 40-5 mg per tablet Indications: Hypertension, essential Take 1 (one) tablet by mouth daily . 30 tablet 5 05/20/2019 07/19/2019 Discontinued Start: 04-05-2019 take 1 tablet by kelly th once daily telmisartan-amLODIPine (TWYNSTA) 40-5 mg per tablet Indications: Hypertension, essential Take 1 (one) tablet by mouth daily . 30 tablet 5 04/05/2019 Active azithromycin (11 sources) Macrolide Antimicrobial Start: 02-27-2019 End: 03-15-2019 take 2 tablets by mouth once daily, then take 1 tablet by mouth, then take 1 tablet by mouth once daily azithromycin (Z-MELANIE) 5 day dose pack Indications: Sinobronchitis Take two tablets by mouth on day 1, then one tablet by mouth daily until finished. . 6 tablet 0 02/27/2019 03/15/2019 Discontinued Start: 08-18-2017 End: 12-14-2018 take 2 tablets by mouth once daily, then take 1 tablet by mouth, then take 1 tablet by mouth once daily azithromycin (Z-MELANIE) 5 day dose pack Indications: Sinobronchitis Take two tablets by mouth on day 1, then one tablet by mouth daily until finished.. 6 tablet 0 08/18/2017 12/14/2018 Discontinued Start: 08-18-2017 take 2 tablets by mo uth once daily, then take 1 tablet by mouth, then take 1 tablet by mouth once daily azithromycin (Z-MELANIE) 5 day dose pack Indications: Sinobronchitis Take two tablets by mouth on day 1, then one tablet by mouth daily until finished.. 6 tablet 0 08/18/2017 Active Start: 08-23-2016 End: 08-18-2017 take 2 tablets by mouth once daily, then take 1 tablet by mouth, then take 1 tablet by mouth once daily azithromycin (Z-MELANIE) 5 day dose pack Indications: Sinobronchitis Take two tablets by mouth on day 1, then one tablet by mouth daily until finished.. 6 tablet 0 08/23/2016 08/18/2017 Discontinued calcium chloride 0.0014 meq/ml / potassium chloride 0.004 meq/ml / sodium chloride 0.103 meq/ml / sodium lactate 0.028 meq/ml injectable solution (1 source) Start: 12-11-2019 End: 12-11-2019 lactated Ringers infusion dextromethorphan hydrobromide 3 mg/ml / promethazine hydrochloride 1.25 mg/ml oral solution (1 source) Phenothiazine, Uncompetitive S-cogkca-N-aspartat e Receptor Antagonist, Sigma-1 Agonist Start: 02-27-2019 End: 03-15-2019 take 5 mL by mouth four times daily as needed promethazine-dextr omethorphan (PROMETHAZINE-DM) 6.25-15 mg/5 mL syrup Indications: Sinobronchitis Take 5 mL by mouth 4 (four) times a day as needed . 120 mL 0 02/27/2019 03/15/2019 Discontinued diazePAM 5 mg oral tablet (5 sources) Benzodiazepine Start: 10-27-2018 End: 12-14-2018 take 1 tablet by mouth every eight hours as needed for muscle spasms diazePAM (VALIUM) 5 MG tablet Indications: Left flank pain Take 1 (one) tablet (5 mg total) by mouth every 8 (eight) hours as needed for muscle spasms . 6 tablet 0 10/27/2018 12/14/2018 Discontinued 50 ml fentaNYL 0.05 mg/ml injection (1 source) Opioid Agonist Start: 10-27-2018 End: 10-27-2018 fentaNYL (SUBLIMAZE) injection 100 mcg fish oil-omega-3 fatty acids 300-1,000 mg capsule (4 sources) End: 12-11-2019 take 1 capsule by mouth once daily fish oil-omega-3 fatty acids 300-1,000 mg capsule Take 2 g by mouth daily . 0 12/11/2019 Discontinued (Stop Taking at Discharge) take 1 capsule by mouth once evelyn ly fish oil-omega-3 fatty acids 300-1,000 mg capsule Take 2 g by mouth daily . 0 Active 1 ml hydrALAZINE hydrochloride 20 mg/ml injection (1 source) Arteriolar Vasodilator Start: 12-11-2019 End: 12-11-2019 5 mg, Intravenous, Every 15 min PRN, SBP greater than 160 or DBP greater than 90, Starting 12/11/19 at 1343, For 4 doses, PACU (only) [] Do not give more than 20 mg total. [] Hold for HR greater than 100. [] Administer if labetalol or metoprolol ineffective at maximum dose or not ordered. hydrocortisone acetate 25 mg/ml / pramoxine hydrochloride 10 mg/ml rectal cream (13 sources) Corticosteroid Start: 01-15-2016 End: 07-19-2019 apply 2.5 doses rectal route three times daily hydrocortisone-pr amoxine (ANALPRAM-HC) 2.5-1 % (4g) rectal cream Indications: Thrombosed external hemorrhoid Insert into the rectum 3 (three) times a day. 30 g 0 01/15/2016 07/19/2019 Discontinued (Therapy completed) Start: 01-15-2016 apply 30 g rectal ro [facility] three times daily hydrocortisone-pramoxine (ANALPRAM-HC) 2.5-1 % (4g) rectal cream Indications: Thrombosed external hemorrhoid Insert into the rectum 3 (three) times a day. 30 g 0 01/15/2016 Active 0.5 ml HYDROmorphone hydrochloride 1 mg/ml prefilled syringe (3 sources) Opioid Agonist Start: 12-11-2019 End: 12-11-2019 0.5 mg, Intravenous, Every 10 min PRN, moderate to severe pain, Starting 12/11/19 at 1343, For 6 doses, PACU (only) [] Give if fentanyl not effective or not ordered. [] Do not give more than 3 mg total. Start: 10-28-2018 End: 10-28-2018 HYDROmorphone (DILAUDID) 0.5 mg/mL injection 0.5 mg Start: 10-27-2018 End: 10-28-2018 take 0.5 mg intravenous route every three hours as needed HYDROmorphone (DILAUDID) 0.5 mg/mL injection 0.5 mg 1 ml ketorolac tromethamine 30 mg/ml injection (1 source) Nonsteroidal Anti-inflammatory Drug, Cyclooxygenase Inhibitor Start: 10-27-2018 End: 10-27-2018 ketorolac (TORADOL) injection 15 mg 4 ml labetalol hydrochloride 5 mg/ml cartridge (1 source) beta-Adrenergic Jose David Start: 12-11-2019 End: 12-11-2019 5 mg, Intravenous, Every 5 min PRN, SBP greater than 160 or DBP greater than 90, Starting 12/11/19 at 1343, For 4 doses, PACU (only) [] Do not give more than 20 mg total. [] Hold for HR less than 50. lisinopril 20 mg oral tablet (14 sources) Angiotensin Converting Enzyme Inhibitor Start: 08-31-2018 End: 03-15-2019 take 1 tablet by mouth once daily lisinopril (PRINIVIL,ZESTRIL ) 20 MG tablet Indications: Hypertension, essential Take 1 (one) tablet (20 mg total) by mouth daily . 90 tablet 1 11/02/2018 03/15/2019 Discontinued Start: 06-20-2018 End: 08-31-2018 take 1 tablet by mouth once daily lisinopril (PRINIVIL,ZESTRIL) 10 MG tablet Indications: Hypertension, essential Take 1 (one) tablet (10 mg total) by mouth daily. 90 tablet 1 06/20/2018 08/31/2018 Discontinued Start: 03-20-2018 take 1 tablet by kelly th once daily lisinopril (PRINIVIL,ZESTRIL) 10 MG tablet Indications: Hypertension, essential Take 1 (one) tablet (10 mg total) by mouth daily. 90 tablet 0 03/20/2018 Active Start: 11-23-2017 take 1 tablet by kelly th once daily lisinopril (PRINIVIL,ZESTRIL) 10 MG tablet Indications: Hypertension, essential Take 1 (one) tablet (10 mg total) by mouth daily. 90 tablet 1 11/23/2017 Active Start: 05-23-2017 End: 11-16-2017 take 1 tablet by mouth once daily lisinopril (PRINIVIL,ZESTRIL) 10 MG tablet Indications: Hypertension, essential Take 1 (one) tablet (10 mg total) by mouth daily. 90 tablet 0 08/18/2017 11/16/2017 Active naloxone (NARCAN) injection 0.1 mg (2 sources) Start: 12-11-2019 End: 12-11-2019 naloxone (NARCAN) injection 0.1 mg Start: 10-27-2018 End: 10-28-2018 naloxone (NARCAN) injection 0.1 mg niacin 500 mg oral tablet (4 sources) Nicotinic Acid End: 12-11-2019 take 1 tablet by mouth once daily at breakfast niacin 500 MG tablet Take 500 mg by mouth daily with breakfast . 0 12/11/2019 Discontinued (Stop Taking at Discharge) predniSONE (10 sources) Corticosteroid Start: 11-02-2018 End: 12-14-2018 predniSONE (DELTASONE) 10 MG tablet Indications: Acute left-sided low back pain without sciatica 4x2d then 3x2d then 2x2d then 1x2d . 20 tablet 0 11/02/2018 12/14/2018 Discontinued Start: 11-02-2018 predniSONE (DE LTASONE) 10 MG tablet Indications: Acute left- sided low back pain without sciatica 4x2d then 3x2d then 2x2d then 1x2d . 20 tablet 0 11/02/2018 Active Start: 03-29-2017 End: 11-02-2018 predniSONE (DELTASONE) 10 MG tablet Indications: Rhus dermatitis 4x3d then 3x3d then 2x3d then 1x3d. 30 tablet 0 03/29/2017 11/02/2018 Discontinued Start: 03-29-2017 predniSONE (DE LTASONE) 10 MG tablet Indications: Rhus dermatitis 4x3d then 3x3d then 2x3d then 1x3d. 30 tablet 0 03/29/2017 Active Start: 03-29-2017 predniSONE (DE LTASONE) 10 MG tablet Indications: Rhus dermatitis 4x3d then 3x3d then 2x3d then 1x3d. 30 tablet 0 03/29/2017 Active tadalafil 20 mg oral tablet (4 sources) Phosphodiesterase 5 Inhibitor Start: 10-09-2019 End: 11-08-2019 take 1 tablet by mouth once daily as needed tadalafil (CIALIS) 20 MG tablet Indications: Erectile dysfunction, unspecified erectile dysfunction type Take 1 (one) tablet (20 mg total) by mouth daily as needed for erectile dysfunction Take prior to sexual activity . 30 tablet 2 10/09/2019 11/08/2019 Start: 08-16-2019 End: 09-15-2019 take 1 tablet by mouth once daily as needed tadalafil (CIALIS) 20 MG tablet Indications: Erectile dysfunction, unspecified erectile dysfunction type Take 1 (one) tablet (20 mg total) by mouth daily as needed for erectile dysfunction Take prior to sexual activity . 10 tablet 0 08/16/2019 09/15/2019 Active telmisartan 40 mg oral tablet (5 sources) Angiotensin 2 Receptor Jose David Start: 04-29-2019 End: 07-19-2019 take 1 tablet by mouth once daily telmisartan (MICARDIS) 40 MG tablet Indications: Hypertension, essential Take 1 (one) tablet (40 mg total) by mouth daily . 30 tablet 0 04/29/2019 07/19/2019 Discontinued (Formulary change) Start: 03-11-2019 take 1 tablet by kelly once daily telmisartan (MICARDIS) 40 MG tablet Indications: Hypertension, essential Take 1 (one) tablet (40 mg total) by mouth daily . 30 tablet 0 03/11/2019 Active Start: 12-14-2018 take 1 tablet by kelly th once daily telmisartan (MICARDIS) 40 MG tablet Indications: Hypertension, essential Take 1 (one) tablet (40 mg total) by mouth daily . 30 tablet 1 12/14/2018 Active testosterone cypionate 100 mg/ml injectable solution (15 sources) Androgen End: 01-10-2020 testosterone cypionate (DEPOTESTOTERONE CYPIONATE) 100 mg/mL injection Indications: androgen deficiency Inject 100 mg into the shoulder, thigh, or buttocks 28 supply Reasons: Deficiency of a Substance that Promotes Masculinization. 0 01/10/2020 Discontinued Problems Active Problems Problem Classification Problem Date [...] side effects present; Translations: [Medication side effect] Viral infection (1 source) Disease caused by 2019-nCoV; Translations: [COVID-19] 08-03-2022 Episodic Past or Other Problems Problem Classification Problem Date Documented Da te Episodic/Chronic Genitourinary symptoms and ill-defined conditions (1 source) Increased frequency of urination; Translations: [Urinary frequency] Episodic Other circulatory disease (17 sources) Elevated blood pressure; Translations: [Elevated blood pressure reading] Onset: 03-15-2019 03-15-2019 Episodic Other connective tissue disease (1 source) Pain in left foot; Translations: [Pain in left foot] Onset: 09-19-2024 Episodic Other injuries and conditions due to external causes (1 source) Motion sickness; Translations: [Motion sickness, initial encounter] Episodic Other upper respiratory infections (20 sources) Chronic sinusitis; Translations: [Sinobronchitis] Onset: 08-18-2017 Resolved: 05-21-2018 08-18-2017 Chronic Residual codes; unclassified (1 source) Other amnesia; Translations: [Other amnesia] Onset: 07-17-2024 Episodic Results Test Name Value Interpretation Reference Range Facility CBC W/Diff, Automatedon 11-07 Absolute Lymph 1.87 X10 3/uL Normal 0.83-4.51 [facility] Comment on above: Order Comment: Order Date: 06/05/24 Order Info: [id number] - CBCD Performed By: #### L [id number], L506.0400, L500.4050, L501.4220, L100.0100, L500.4100 #### [facility] [address] [place], [place], [id number] Absolute Neut 3.9 X10 3/uL Normal 2.0-7.7 [facility] Comment on above: Order Comment: Order Date: 06/05/24 Order Info: [id number] - CBCD Performed By: #### L [id number], L506.0400, L500.4050, [id number], L100.0100, L500.4100 #### [facility] [address] [place], [address] Basophils/100 WBC (Bld) 0.8 % Normal 0-1 [facility] Comment on above: Order Comment: Order Date: 06/05/24 Order Info: 0184- - CBCD Performed By: #### L [id number], L506.0400, L500.4050, [id number], L100.0100, L500.4100 #### [facility] [address] [place], [address] Eosinophils/100 WBC (Bld) 1.7 % Normal 0-5 [facility] Comment on above: Order Comment: Order Date: 06/05/24 Order Info: 0184- - CBCD Performed By: #### L [id number], L506.0400, L500.4050, L501.9520, L100.0100, L500.4100 #### [facility] [address] [place], [address] Erythrocyte distribution width (RBC) [Ratio] 12.9 % Normal 11.6-14.6 [facility] Comment on above: Order Comment: Order Date: 06/05/24 Order Info: 0184- - CBCD Performed By: #### L [id number], L506.0400, L500.4050, L501.9520, L100.0100, L500.4100 #### [facility] [address] [place], [address] Hematocrit (Bld) [Volume fraction] 45.9 % Normal 40-54 [facility] Comment on above: Order Comment: Order Date: 06/05/24 Order Info: 0184- - CBCD Performed By: #### L [id number], L506.0400, L500.4050, L501.9520, L100.0100, L500.4100 #### [facility] [address] [place], [address] Hemoglobin (Bld) [Mass/Vol] 15.9 g/dL Normal 13.0-16.5 [facility] Comment on above: Order Comment: Order Date: 06/05/24 Order Info: [id number] - CBCD Performed By: #### L [id number], L506.0400, L500.4050, L501.9520, L100.0100, L500.4100 #### [facility] [address] [place], [address] IG% 0.500 Normal 0.0-0.9 [facility] Comment on above: Order Comment: Order Date: 06/05/24 Order Info: [id number] - CBCD Result Comment: IG% - Immature Granulocytes (promyelocytes, myelocytes and metamyelocytes) > 1% indicates that a LEFT SHIFT is Present. Performed By: #### L [id number], L506.0400, L500.4050, [id number], L100.0100, L500.4100 #### [facility] [address] [place], [address] Lymphocytes/100 WBC (Bld) 28.2 % Normal 19-41 [facility] Comment on above: Order Comment: Order Date: 06/05/24 Order Info: [id number] - CBCD Performed By: #### L [id number], L506.0400, L500.4050, [id number], L100.0100, L500.4100 #### [facility] [address] [place], [address] MCH (RBC) [Entitic mass] 30.8 pg Normal 27.0-32.0 [facility] Comment on above: Order Comment: Order Date: 06/05/24 Order Info: 0184-1 - CBCD Performed By: #### L 501.9910, L506.0400, L500.4050, L501.9520, L100.0100, L500.4100 #### [facility] [address] [place], [address] MCHC (RBC) [Mass/Vol] 34.6 g/dL Normal 32-36 [facility] Comment on above: Order Comment: Order Date: 06/05/24 Order Info: 018- - CBCD Performed By: #### L 501.9910, L506.0400, L500.4050, L501.9520, L100.0100, L500.4100 #### [facility] [address] [place], [address] MCV (RBC) [Entitic vol] 89.0 fL Normal 80-94 [facility] Comment on above: Order Comment: Order Date: 06/05/24 Order Info: 0184- - CBCD Performed By: #### L 501.9910, L506.0400, L500.4050, L501.9520, L100.0100, L500.4100 #### [facility] [address] [place], [address] Monocytes/100 WBC (Bld) 10.0 % Normal 0-10 [facility] Comment on above: Order Comment: Order Date: 06/05/24 Order Info: 0184- - CBCD Performed By: #### L 501.9910, L506.0400, L500.4050, L501.9520, L100.0100, L500.4100 #### [facility] [address] [place], [address] Neutrophils/100 WBC (Bld) 58.8 % Normal 47-70 [facility] Comment on above: Order Comment: Order Date: 06/05/24 Order Info: 0184- - CBCD Performed By: #### L 501.9910, L506.0400, L500.4050, L501.9520, L100.0100, L500.4100 #### [facility] [address] [place], [address] Nucleated RBC (Bld) [#/Vol] 0 10*3/uL Normal 0-5 [facility] Comment on above: Order Comment: Order Date: 06/05/24 Order Info: 0184-1 - CBCD Performed By: #### L 501.9910, L506.0400, L500.4050, L501.9520, L100.0100, L500.4100 #### [facility] [address] [place], [address] Platelet mean volume (Bld) [Entitic vol] 9.7 fL Normal 6.2-12.0 [facility] Comment on above: Order Comment: Order Date: 06/05/24 Order Info: 0184-1 - CBCD Performed By: #### L 501.9910, L506.0400, L500.4050, L501.9520, L100.0100, L500.4100 #### [facility] [address] [place], [address] Platelets (Bld) [#/Vol] 237 10*3/uL Normal 150-450 [facility] Comment on above: Order Comment: Order Date: 06/05/24 Order Info: 0184-1 - CBCD Performed By: #### L 501.9910, L506.0400, L500.4050, L501.9520, L100.0100, L500.4100 #### [facility] [address] [place], [address] RBC (Bld) [#/Vol] 5.16 10*6/uL Normal 4.6-6.2 [facility] Comment on above: Order Comment: Order Date: 06/05/24 Order Info: 0184-1 - CBCD Performed By: #### L 501.9910, L506.0400, L500.4050, L501.9520, L100.0100, L500.4100 #### [facility] [address] [place], [address] RDW SD 42.3 fl Normal 35.1-43.9 [facility] Comment on above: Order Comment: Order Date: 06/05/24 Order Info: 0184-1 - CBCD Performed By: #### L 501.9910, L506.0400, L500.4050, L501.9520, L100.0100, L500.4100 #### [facility] [address] [place], [address] WBC (Bld) [#/Vol] 6.6 10*3/uL Normal 4.4-11.0 [facility] Comment on above: Order Comment: Order Date: 06/05/24 Order Info: 0184- - CBCD Performed By: #### L 501.9910, L506.0400, L500.4050, L501.9520, L100.0100, L500.4100 #### [facility] [address] [place], [address] [facility] 11-28-2024 Albumin [Mass/Vol] 3.6 g/dL Normal 3.2-5.0 [facility] Comment on above: Order Comment: Order Date: 06/05/24 Order Info: 0786-1 - CMP Order Info: 00137-1 - LIPID Order Info: 3016-3 - TSH Order Info: 2857-1 - PSA Order Info: 3024-7 - T4F Performed By: #### L 501.9910, L506.0400, L500.4050, L501.9520, L100.0100, L500.4100 #### [facility] [address] [place], [address] Albumin/Globulin [Mass ratio] 0.9 {ratio} Normal 0.9-2.4 [facility] Comment on above: Order Comment: Order Date: 06/05/24 Order Info: 785-1 - CMP Order Info: - LIPID Order Info: 3016-01 - TSH Order Info: 2856-11 - PSA Order Info: 7 - T4F Performed By: #### L 501.9910, L506.0400, L500.4050, L501.9520, L100.0100, L500.4100 #### [facility] [address] [place], [address] ALK P 78 U/L Normal 45-117 [facility] Comment on above: Order Comment: Order Date: 06/05/24 Order Info: 785-1 - CMP Order Info: [id number] - LIPID Order Info: 3016-01 - TSH Order Info: 2856-11 - PSA Order Info: 7 - T4F Performed By: #### L 501.9910, L506.0400, L500.4050, L501.9520, L100.0100, L500.4100 #### [facility] [address] [place], [address] ALT [Catalytic activity/Vol] 35 U/L Normal 16-61 [facility] Comment on above: Order Comment: Order Date: 06/05/24 Order Info: 785-1 - CMP Order Info: - LIPID Order Info: 3016-01 - TSH Order Info: 2856-11 - PSA Order Info: 7 - T4F Performed By: #### L 501.9910, L506.0400, L500.4050, L501.9520, L100.0100, L500.4100 #### [facility] [address] [place], [address] AST [Catalytic activity/Vol] 31 U/L Normal 15-37 [facility] Comment on above: Order Comment: Order Date: 06/05/24 Order Info: 86-1 - CMP Order Info: 50115-6 - LIPID Order Info: 3016-01 - TSH Order Info: 2856-11 - PSA Order Info: 7 - T4F Result Comment: Mode rate Hemolysis, Result may be falsely increased. Performed By: #### L 501.9910, L506.0400, L500.4050, L501.9520, L100.0100, L500.4100 #### [facility] [address] [place], [place], [phone] (454) Bilirubin [Mass/Vol] 1.20 mg/dL High 0.20-1.[address] [facility] Comment on above: Order Comment: Order Date: 06/05/24 Order Info: 785- - CMP Order Info: - LIPID Order Info: 3016-01 - TSH Order Info: 2856-11 - PSA Order Info: 7 - T4F Result Comment: For patients on eltrombopag therapy, use of Dimension [place] TBIL is not recommended. Performed By: #### L 501.9910, L506.0400, L500.4050, L501.9520, L100.0100, L500.4100 #### [facility] [address] [place], [place], [phone] (145) BUN/CRE 15.4 RATIO Normal 10-20 [facility] Comment on above: Order Comment: Order Date: 06/05/24 Order Info: 785-11 - CMP Order Info: - LIPID Order Info: 3016-01 - TSH Order Info: 2856-11 - PSA Order Info: 3024-05 - T4F Performed By: #### L 501.9910, L506.0400, L500.4050, L501.9520, L100.0100, L500.4100 #### [facility] [address] [place], [address] CA,Total 9.1 mg/dL Normal 8.5-10.1 [facility] Comment on above: Order Comment: Order Date: 06/05/24 Order Info: 785-11 - CMP Order Info: - LIPID Order Info: 3016-01 - TSH Order Info: 2856-11 - PSA Order Info: 7 - T4F Performed By: #### L 501.9910, L506.0400, L500.4050, L501.9520, L100.0100, L500.4100 #### [facility] [address] [place], [address] Chloride [Moles/Vol] 106 mmol/L Normal 98-[address] [facility] Comment on above: Order Comment: Order Date: 06/05/24 Order Info: 785- - CMP Order Info: - LIPID Order Info: 3016-01 - TSH Order Info: 2856-11 - PSA Order Info: 7 - T4F Performed By: #### L 501.9910, L506.0400, L500.4050, L501.9520, L100.0100, L500.4100 #### [facility] [address] [place], [address] CO2 [Moles/Vol] 27.0 mmol/L Normal 21.0-32.0 [facility] Comment on above: Order Comment: Order Date: 06/05/24 Order Info: 785-11 - CMP Order Info: - LIPID Order Info: 3016-01 - TSH Order Info: 2856-11 - PSA Order Info: 7 - T4F Performed By: #### L 501.9910, L506.0400, L500.4050, L501.9520, L100.0100, L500.4100 #### [facility] [address] [place], [address] Creatinine [Mass/Vol] 1.04 mg/dL Normal 0.70-1.30 [facility] Comment on above: Order Comment: Order Date: 06/05/24 Order Info: 785-11 - CMP Order Info: 70261-9 - LIPID Order Info: 3 - TSH Order Info: 2856-11 - PSA Order Info: 3024-7 - T4F Result Comment: The validity of the calculated GFR GFRAA in patients over 70 years has not been determined. Clinical correlation is essential. Performed By: #### L 501.9910, L506.0400, L500.4050, L501.9520, L100.0100, L500.4100 #### [facility] [address] [place], [place], [address] (309) EST GFR - AA 95 mL/min Normal >60 [facility] Comment on above: Order Comment: Order Date: 06/05/24 Order Info: 785- - CMP Order Info: - LIPID Order Info: 3016-01 - TSH Order Info: 2856-11 - PSA Order Info: 3024-05 - T4F Result Comment: Afri can [place] GFR Calc Performed By: #### L 501.9910, L506.0400, L500.4050, L501.9520, L100.0100, L500.4100 #### [facility] [address] [place], [address] GAP 7 Normal 5-15 [facility] Comment on above: Order Comment: Order Date: 06/05/24 Order Info: 785-11 - CMP Order Info: - LIPID Order Info: 3016-01 - TSH Order Info: 2856-11 - PSA Order Info: 3024-05 - T4F Performed By: #### L 501.9910, L506.0400, L500.4050, L501.9520, L100.0100, L500.4100 #### [facility] [address] [place], [place], [address] GFR/1.73 sq M.predicted among non-blacks MDRD (S/P/Bld) [Vol rate/Area] 79 mL/min/{1.73_m2} Normal >60 [facility] Comment on above: Order Comment: Order Date: 06/05/24 Order Info: 785- - CMP Order Info: - LIPID Order Info: 3016-01 - TSH Order Info: 2856-11 - PSA Order Info: 7 - T4F Result Comment: Non- GFR Calc Performed By: #### L 501.9910, L506.0400, L500.4050, L501.9520, L100.0100, L500.4100 #### [facility] [address] [place], [address] Globulin (S) [Mass/Vol] 4.0 g/dL Normal 2.2-4.2 [facility] Comment on above: Order Comment: Order Date: 06/05/24 Order Info: 785-11 - CMP Order Info: - LIPID Order Info: 3016-01 - TSH Order Info: 2856-11 - PSA Order Info: 3024-05 - T4F Performed By: #### L 501.9910, L506.0400, L500.4050, L501.9520, L100.0100, L500.4100 #### [facility] [address] [place], [address] Glucose [Mass/Vol] 95 mg/dL Normal 74-106 [facility] Comment on above: Order Comment: Order Date: 06/05/24 Order Info: 785-11 - CMP Order Info: - LIPID Order Info: 3016-01 - TSH Order Info: 2856-11 - PSA Order Info: 3024-05 - T4F Performed By: #### L 501.9910, L506.0400, L500.4050, L501.9520, L100.0100, L500.4100 #### [facility] [address] [place], [address] Potassium [Moles/Vol] 4.1 mmol/L Normal 3.5-5.1 [facility] Comment on above: Order Comment: Order Date: 06/05/24 Order Info: 785-11 - CMP Order Info: - LIPID Order Info: 3016-01 - TSH Order Info: 2856-11 - PSA Order Info: 7 - T4F Result Comment: Mode rate Hemolysis, Result may be falsely increased. Performed By: #### L 501.9910, L506.0400, L500.4050, L501.9520, L100.0100, L500.4100 #### [facility] [address] [place], [place], [id number] Sodium [Moles/Vol] 140 mmol/L Normal 136-145 [facility] Comment on above: Order Comment: Order Date: 06/05/24 Order Info: 785- - CMP Order Info: 10231-2 - LIPID Order Info: 3 - TSH Order Info: 2856-11 - PSA Order Info: 3024-7 - T4F Performed By: #### L 501.9910, L506.0400, L500.4050, L501.9520, L100.0100, L500.4100 #### [facility] [address] [place], [place], [id number] T PROT 7.6 g/dL Normal 6.4-8.2 [facility] Comment on above: Order Comment: Order Date: 06/05/24 Order Info: 785-11 - CMP Order Info: - LIPID Order Info: 3016-01 - TSH Order Info: 2856-11 - PSA Order Info: 3024-7 - T4F Performed By: #### L 501.9910, L506.0400, L500.4050, L501.9520, L100.0100, L500.4100 #### [facility] [address] [place], [place], [id number] Urea nitrogen [Mass/Vol] 16 mg/dL Normal 7-18 [facility] Comment on above: Order Comment: Order Date: 06/05/24 Order Info: 785-11 - CMP Order Info: - LIPID Order Info: 3 - TSH Order Info: 2856-11 - PSA Order Info: 3024-7 - T4F Performed By: #### L 501.9910, L506.0400, L500.4050, L501.9520, L100.0100, L500.4100 #### [facility] [address] [place], [address] Lipid Profileon 11-28-2024 Cholesterol [Mass/Vol] 196 mg/dL Normal 200 [facility] Comment on above: Order Comment: Order Date: 06/05/24 Order Info: 0786- - CMP Order Info: - LIPID Order Info: 3016-01 - TSH Order Info: 2856-11 - PSA Order Info: 7 - T4F Result Comment: <200 mg/dL Desirable 200-240 mg/dL Borderline >240 mg/dL High Risk Performed By: #### L 501.9910, L506.0400, L500.4050, L501.9520, L100.0100, L500.4100 #### [facility] [address] [place], [address] Cholesterol in HDL [Mass/Vol] 65 mg/dL Normal [facility] Comment on above: Order Comment: Order Date: 06/05/24 Order Info: 785-11 - CMP Order Info: - LIPID Order Info: 3016-01 - TSH Order Info: 2856-11 - PSA Order Info: 3024-05 - T4F Result Comment: The drugs N-Acetylcysteine and Metamizole may falsely depress this assay. Reference Range HDL <40 mg/dL Low HDL Cholesterol HDL >or= 60 mg/dL High HDL Cholesterol Performed By: #### L 501.9910, L506.0400, L500.4050, L501.9520, L100.0100, L500.4100 #### [facility] [address] [place], [address] Cholesterol in LDL [Mass/Vol] 106 mg/dL Normal 0-130 [facility] Comment on above: Order Comment: Order Date: 06/05/24 Order Info: 0786 - CMP Order Info: - LIPID Order Info: 3 - TSH Order Info: 2856-11 - PSA Order Info: 3024-05 - T4F Performed By: #### L 501.9910, L506.0400, L500.4050, L501.9520, L100.0100, L500.4100 #### [facility] [address] [place], [place], [id number] Cholesterol in VLDL [Mass/Vol] 25 mg/dL Normal 5-40 [facility] Comment on above: Order Comment: Order Date: 06/05/24 Order Info: 785- - CMP Order Info: - LIPID Order Info: 3016-01 - TSH Order Info: 2856-11 - PSA Order Info: 7 - T4F Performed By: #### L 501.9910, L506.0400, L500.4050, L501.9520, L100.0100, L500.4100 #### [facility] [address] [place], [address] Triglyceride [Mass/Vol] 125 mg/dL Normal [facility] Comment on above: Order Comment: Order Date: 06/05/24 Order Info: 785-11 - CMP Order Info: - LIPID Order Info: 3016-01 - TSH Order Info: 2856-11 - PSA Order Info: 3024-05 - T4F Result Comment: The drugs N-Acetylcysteine and Metamizole may falsely depress this assay. Serum Triglycerides Reference Interval Normal <150 mg/dL Borderline high 150 - 199 mg/dL High 200 - 499 mg/dL Very High > or = 500 mg/dL Performed By: #### L 501.9910, L506.0400, L500.4050, L501.9520, L100.0100, L500.4100 #### [facility] [address] [place], [address] PSA,Total - Annual Screenon 11-28-2024 PSA,TOT SCREEN 0.54 ng/mL Normal 0.00-4.00 [facility] Comment on above: Order Comment: Order Date: 06/05/24 Order Info: 785-11 - CMP Order Info: - LIPID Order Info: 3016-01 - TSH Order Info: 2856-11 - PSA Order Info: 7 - T4F Result Comment: This test was performed using the TPSA assay method for the [employer] chemistry system. Values obtained with different assay methods cannot be used interchangably. When changing PSA assays in the course of monitoring a patient, additional sequential testing should be carried out to confirm baseline values. Performed By: #### L 501.9910, L506.0400, L500.4050, L501.9520, L100.0100, L500.4100 #### [facility] [address] [facility] [place], [address] T4 Free Directon 11-28-2024 T4 FREE DIRECT 0.88 ng/dL Normal 0.76-1.46 [facility] Comment on above: Order Comment: Order Date: 06/05/24 Order Info: 0786-1 - CMP Order Info: 11626-9 - LIPID Order Info: 6-3 - TSH Order Info: 2856-11 - PSA Order Info: 3024-05 - T4F Performed By: #### L 501.9910, L506.0400, L500.4050, L501.9520, L100.0100, L500.4100 #### [facility] [facility] [place], [address] Thyroid Stim Hormone (TSH)on 11-28-2024 TSH 2.540 uIU/mL Normal 0.358-3.74 0 [facility] Comment on above: Order Comment: Order Date: 06/05/24 Order Info: 0786-1 - CMP Order Info: 20659-3 - LIPID Order Info: 6-3 - TSH Order Info: 2856-11 - PSA Order Info: 7 - T4F Performed By: #### L 501.9910, L506.0400, L500.4050, L501.9520, L100.0100, L500.4100 #### [facility] [address] [facility] [place], [address] Foot min 3 Viewson 4 Foot min 3 Views [facility] [address] [place] [address] Foot min 3 Views MR#: [id number] Acct: [id number] Name: VINH COLBY Rep #: [id number] : 1970 M 54 From: De Brito DO PCP: Dr. Kailyn Ibrahim MD Status: REG CLI Study: Foot min 3 Views Date of Exam: 08/30/24 Exam# [id number] Ordering Dr: Kailyn Ibrahim MD [id number] INDICATION: Pain, possible heel spur EXAMINATION/TECHNIQUE: X-RAY - LEFT XR Foot Min 3 Views 3 VIEWS COMPARISON: FINDINGS: SOFT TISSUES: No soft tissue swelling or gas. No radiopaque foreign body. BONES/JOINTS: No acute fracture or subluxation.. Normal alignment. Small subcentimeter calcaneal spurring. Preservation of the joint space.. No sclerotic or destructive changes observed. RAD/Foot min 3 Views IMPRESSION: Small calcaneal spurring. Electronically Signed: De Brito DO at 16:56 EDT Reading Location ID and State: [address] [place] [address] Tel [phone], Service support , CC: Dr. Kailyn Ibrahim MD Vp Production: Signed Normal [facility] Vitamin B12on 07-04-2024 Cobalamin (Vitamin B12) [Mass/Vol] 630 pg/mL Normal 211-911 [facility] Comment on above: Order Comment: Order Date: 06/05/24 Order Info: 0786-1 - CMP Order Info: 30307-4 - LIPID Order Info: 3016-3 - TSH Order Info: 2857-1 - PSA Order Info: 3024-7 - T4F Performed By: #### L 501.9910, L506.0400, L500.4050, L501.9520, L100.0100, L500.4100 #### [facility] [address] [place], [address] CBC W/Diff, Automatedon 07-12 11-2023 Absolute Lymph 1.91 X10 3/uL Normal 0.83-4.51 [facility] Comment on above: Order Comment: Order Date: 12/06/23 Order Info: 018- - CBCD Performed By: #### L 500.4050, L100.0100, L500.4100, L501.5200, L501.9520, L506.0400 #### [facility] [address] [place], [address] Absolute Neut 3.8 X10 3/uL Normal 2.0-7.7 [facility] Comment on above: Order Comment: Order Date: 12/06/23 Order Info: 018- - CBCD Performed By: #### L 500.4050, L100.0100, L500.4100, L501.5200, L501.9520, L506.0400 #### [facility] [address] [place], [address] Basophils/100 WBC (Bld) 0.9 % Normal 0-1 [facility] Comment on above: Order Comment: Order Date: 12/06/23 Order Info: 018- - CBCD Performed By: #### L 500.4050, L100.0100, L500.4100, L501.5200, L501.9520, L506.0400 #### [facility] [address] [place], [address] Eosinophils/100 WBC (Bld) 1.5 % Normal 0-5 [facility] Comment on above: Order Comment: Order Date: 12/06/23 Order Info: 0184-1 - CBCD Performed By: #### L 500.4050, L100.0100, L500.4100, L501.5200, L501.9520, L506.0400 #### [facility] [address] [place], [place], [id number] Erythrocyte distribution width (RBC) [Ratio] 12.7 % Normal 11.6-14.6 [facility] Comment on above: Order Comment: Order Date: 12/06/23 Order Info: 0184-1 - CBCD Performed By: #### L 500.4050, L100.0100, L500.4100, L501.5200, L501.9520, L506.0400 #### [facility] [address] [place], [address] Hematocrit (Bld) [Volume fraction] 46.2 % Normal 40-54 [facility] Comment on above: Order Comment: Order Date: 12/06/23 Order Info: 0184-1 - CBCD Performed By: #### L 500.4050, L100.0100, L500.4100, L501.5200, L501.9520, L506.0400 #### [facility] [address] [place], [place], [id number] Hemoglobin (Bld) [Mass/Vol] 15.6 g/dL Normal 13.0-16.5 [facility] Comment on above: Order Comment: Order Date: 12/06/23 Order Info: 0184-1 - CBCD Performed By: #### L 500.4050, L100.0100, L500.4100, L501.5200, L501.9520, L506.0400 #### [facility] [address] [place], [address] IG% 0.300 Normal 0.0-0.9 [facility] Comment on above: Order Comment: Order Date: 12/06/23 Order Info: 0184-1 - CBCD Result Comment: IG% - Immature Granulocytes (promyelocytes, myelocytes and metamyelocytes) > 1% indicates that a LEFT SHIFT is Present. Performed By: #### L 500.4050, L100.0100, L500.4100, L501.5200, L501.9520, L506.0400 #### [facility] [address] [place], [address] Lymphocytes/100 WBC (Bld) 29.3 % Normal 19-41 [facility] Comment on above: Order Comment: Order Date: 12/06/23 Order Info: 01802-04 - CBCD Performed By: #### L 500.4050, L100.0100, L500.4100, L501.5200, L501.9520, L506.0400 #### [facility] [address] [place], [address] MCH (RBC) [Entitic mass] 29.9 pg Normal 27.0-32.0 [facility] Comment on above: Order Comment: Order Date: 12/06/23 Order Info: 01802-04 - CBCD Performed By: #### L 500.4050, L100.0100, L500.4100, L501.5200, L501.9520, L506.0400 #### [facility] [address] [place], [address] MCHC (RBC) [Mass/Vol] 33.8 g/dL Normal 32-36 [facility] Comment on above: Order Comment: Order Date: 12/06/23 Order Info: 01802-04 - CBCD Performed By: #### L 500.4050, L100.0100, L500.4100, L501.5200, L501.9520, L506.0400 #### [facility] [address] [place], [address] MCV (RBC) [Entitic vol] 88.5 fL Normal 80-94 [facility] Comment on above: Order Comment: Order Date: 12/06/23 Order Info: 01802-04 - CBCD Performed By: #### L 500.4050, L100.0100, L500.4100, L501.5200, L501.9520, L506.0400 #### [facility] [address] [place], [address] Monocytes/100 WBC (Bld) 9.7 % Normal 0-10 [facility] Comment on above: Order Comment: Order Date: 12/06/23 Order Info: 0184-1 - CBCD Performed By: #### L 500.4050, L100.0100, L500.4100, L501.5200, L501.9520, L506.0400 #### [facility] [address] [place], [address] Neutrophils/100 WBC (Bld) 58.3 % Normal 47-70 [facility] Comment on above: Order Comment: Order Date: 12/06/23 Order Info: 0184-1 - CBCD Performed By: #### L 500.4050, L100.0100, L500.4100, L501.5200, L501.9520, L506.0400 #### [facility] [address] [place], [address] Nucleated RBC (Bld) [#/Vol] 0 10*3/uL Normal 0-5 [facility] Comment on above: Order Comment: Order Date: 12/06/23 Order Info: 0184-1 - CBCD Performed By: #### L 500.4050, L100.0100, L500.4100, L501.5200, L501.9520, L506.0400 #### [facility] [address] [place], [address] Platelet mean volume (Bld) [Entitic vol] 10.3 fL Normal 6.2-12.0 [facility] Comment on above: Order Comment: Order Date: 12/06/23 Order Info: [id number] - CBCD Performed By: #### L 500.4050, L100.0100, L500.4100, L501.5200, L501.9520, L506.0400 #### [facility] [address] [place], [address] Platelets (Bld) [#/Vol] 243 10*3/uL Normal 150-450 [facility] Comment on above: Order Comment: Order Date: 12/06/23 Order Info: 0184-1 - CBCD Performed By: #### L 500.4050, L100.0100, L500.4100, L501.5200, L501.9520, L506.0400 #### [facility] [address] [place], [address] RBC (Bld) [#/Vol] 5.22 10*6/uL Normal 4.6-6.2 [facility] Comment on above: Order Comment: Order Date: 12/06/23 Order Info: 0184-1 - CBCD Performed By: #### L 500.4050, L100.0100, L500.4100, L501.5200, L501.9520, L506.0400 #### [facility] [address] [place], [address] RDW SD 41.1 fl Normal 35.1-43.9 [facility] Comment on above: Order Comment: Order Date: 12/06/23 Order Info: 0184-1 - CBCD Performed By: #### L 500.4050, L100.0100, L500.4100, L501.5200, L501.9520, L506.0400 #### [facility] [address] [place], [address] WBC (Bld) [#/Vol] 6.5 10*3/uL Normal 4.4-11.0 [facility] Comment on above: Order Comment: Order Date: 12/06/23 Order Info: 0184-1 - CBCD Performed By: #### L 500.4050, L100.0100, L500.4100, L501.5200, L501.9520, L506.0400 #### [facility] [address] [place], [address] Comprehensive Metabolic Prof ilon 05-30-2024 Albumin [Mass/Vol] 3.6 g/dL Normal 3.2-5.0 [facility] Comment on above: Order Comment: Order Date: 12/06/23 Order Info: 0786-1 - CMP Order Info: [id number] - LIPID Order Info: [id number] - MG Order Info: 3016-3 - TSH Order Info: 3024-7 - T4F Performed By: #### L 500.4050, L100.0100, L500.4100, L501.5200, L501.9520, L506.0400 #### [facility] [address] [place], [address] Albumin/Globulin [Mass ratio] 0.9 {ratio} Normal 0.9-2.4 [facility] Comment on above: Order Comment: Order Date: 12/06/23 Order Info: 07-1 - CMP Order Info: [id number] - LIPID Order Info: [id number] - MG Order Info: 3016-3 - TSH Order Info: 3024-7 - T4F Performed By: #### L 500.4050, L100.0100, L500.4100, L501.5200, L501.9520, L506.0400 #### [facility] [address] [place], [address] ALK P 89 U/L Normal 45-117 [facility] Comment on above: Order Comment: Order Date: 12/06/23 Order Info: 0786-1 - CMP Order Info: [id number] - LIPID Order Info: [id number] - MG Order Info: 3016-3 - TSH Order Info: 3024-7 - T4F Performed By: #### L 500.4050, L100.0100, L500.4100, L501.5200, L501.9520, L506.0400 #### [facility] [address] [place], [address] ALT [Catalytic activity/Vol] 31 U/L Normal 16-61 [facility] Comment on above: Order Comment: Order Date: 12/06/23 Order Info: 0786-1 - CMP Order Info: [id number] - LIPID Order Info: [id number] - MG Order Info: 301-3 - TSH Order Info: 3023-7 - T4F Performed By: #### L 500.4050, L100.0100, L500.4100, L501.5200, L501.9520, L506.0400 #### [facility] [address] [place], [address] AST [Catalytic activity/Vol] 19 U/L Normal 15-37 [facility] Comment on above: Order Comment: Order Date: 12/06/23 Order Info: 86-1 - CMP Order Info: [id number] - LIPID Order Info: [id number] - MG Order Info: 3 - TSH Order Info: 3024-05 - T4F Performed By: #### L 500.4050, L100.0100, L500.4100, L501.5200, L501.9520, L506.0400 #### [facility] [address] [place], [address] Bilirubin [Mass/Vol] 1.30 mg/dL High 0.20-1.[address] [facility] Comment on above: Order Comment: Order Date: 12/06/23 Order Info: 0786-1 - CMP Order Info: [id number] - LIPID Order Info: [id number] - MG Order Info: 3016-3 - TSH Order Info: 3024-7 - T4F Result Comment: For patients on eltrombopag therapy, use of Dimension [place] TBIL is not recommended. Performed By: #### L 500.4050, L100.0100, L500.4100, L501.5200, L501.9520, L506.0400 #### [facility] [address] [place], [address] BUN/CRE 13.6 RATIO Normal 10-20 [facility] Comment on above: Order Comment: Order Date: 12/06/23 Order Info: 86-1 - CMP Order Info: [id number] - LIPID Order Info: 27577-3 - MG Order Info: 3015-3 - TSH Order Info: 3024-7 - T4F Performed By: #### L 500.4050, L100.0100, L500.4100, L501.5200, L501.9520, L506.0400 #### [facility] [address] [place], [address] CA,Total 8.8 mg/dL Normal 8.5-10.1 [facility] Comment on above: Order Comment: Order Date: 12/06/23 Order Info: 86-1 - CMP Order Info: 13767-0 - LIPID Order Info: [id number] - MG Order Info: 3015-3 - TSH Order Info: 3024-7 - T4F Performed By: #### L 500.4050, L100.0100, L500.4100, L501.5200, L501.9520, L506.0400 #### [facility] [address] [place], [address] Chloride [Moles/Vol] 107 mmol/L Normal 98-[address] [facility] Comment on above: Order Comment: Order Date: 12/06/23 Order Info: 86-1 - CMP Order Info: [id number] - LIPID Order Info: [id number] - MG Order Info: 3015-3 - TSH Order Info: 3024-7 - T4F Performed By: #### L 500.4050, L100.0100, L500.4100, L501.5200, L501.9520, L506.0400 #### [facility] [address] [place], [address] CO2 [Moles/Vol] 27.0 mmol/L Normal 21.0-32.0 [facility] Comment on above: Order Comment: Order Date: 12/06/23 Order Info: 86-1 - CMP Order Info: [id number] - LIPID Order Info: [id number] - MG Order Info: 3 - TSH Order Info: 3024-05 - T4F Performed By: #### L 500.4050, L100.0100, L500.4100, L501.5200, L501.9520, L506.0400 #### [facility] [address] [place], [address] Creatinine [Mass/Vol] 0.96 mg/dL Normal 0.70-1.30 [facility] Comment on above: Order Comment: Order Date: 12/06/23 Order Info: 86-1 - CMP Order Info: [id number] - LIPID Order Info: [id number] - MG Order Info: 3 - TSH Order Info: 3024-05 - T4F Result Comment: The validity of the calculated GFR GFRAA in patients over 70 years has not been determined. Clinical correlation is essential. Performed By: #### L 500.4050, L100.0100, L500.4100, L501.5200, L501.9520, L506.0400 #### [facility] [address] [place], [address] EST GFR - AA 105 mL/min Normal >60 [facility] Comment on above: Order Comment: Order Date: 12/06/23 Order Info: 07-1 - CMP Order Info: [id number] - LIPID Order Info: [id number] - MG Order Info: 3 - TSH Order Info: 3024-05 - T4F Result Comment: Afri can [place] GFR Calc Performed By: #### L 500.4050, L100.0100, L500.4100, L501.5200, L501.9520, L506.0400 #### [facility] [address] [place], [address] GAP 5 Normal 5-15 [facility] Comment on above: Order Comment: Order Date: 12/06/23 Order Info: 0786-1 - CMP Order Info: [id number] - LIPID Order Info: [id number] - MG Order Info: 3 - TSH Order Info: 3024-05 - T4F Performed By: #### L 500.4050, L100.0100, L500.4100, L501.5200, L501.9520, L506.0400 #### [facility] [address] [place], [address] GFR/1.73 sq M.predicted among non-blacks MDRD (S/P/Bld) [Vol rate/Area] 87 mL/min/{1.73_m2} Normal >60 [facility] Comment on above: Order Comment: Order Date: 12/06/23 Order Info: 0786-1 - CMP Order Info: [id number] - LIPID Order Info: [id number] - MG Order Info: 3 - TSH Order Info: 3024-05 - T4F Result Comment: Non- GFR Calc Performed By: #### L 500.4050, L100.0100, L500.4100, L501.5200, L501.9520, L506.0400 #### [facility] [address] [place], [address] Globulin (S) [Mass/Vol] 4.2 g/dL Normal 2.2-4.2 [facility] Comment on above: Order Comment: Order Date: 12/06/23 Order Info: 0786-1 - CMP Order Info: [id number] - LIPID Order Info: [id number] - MG Order Info: 3 - TSH Order Info: 7 - T4F Performed By: #### L 500.4050, L100.0100, L500.4100, L501.5200, L501.9520, L506.0400 #### [facility] [address] [place], [address] Glucose [Mass/Vol] 93 mg/dL Normal 74-106 [facility] Comment on above: Order Comment: Order Date: 12/06/23 Order Info: 0786-1 - CMP Order Info: [id number] - LIPID Order Info: [id number] - MG Order Info: 3015-3 - TSH Order Info: 3024-7 - T4F Performed By: #### L 500.4050, L100.0100, L500.4100, L501.5200, L501.9520, L506.0400 #### [facility] [address] [place], [address] Potassium [Moles/Vol] 3.4 mmol/L Low 3.5-5.1 [facility] Comment on above: Order Comment: Order Date: 12/06/23 Order Info: 86-1 - CMP Order Info: [id number] - LIPID Order Info: [id number] - MG Order Info: 3 - TSH Order Info: 3024-7 - T4F Performed By: #### L 500.4050, L100.0100, L500.4100, L501.5200, L501.9520, L506.0400 #### [facility] [address] [place], [address] Sodium [Moles/Vol] 139 mmol/L Normal 136-145 [facility] Comment on above: Order Comment: Order Date: 12/06/23 Order Info: 86-1 - CMP Order Info: [id number] - LIPID Order Info: 74441-3 - MG Order Info: 3016-3 - TSH Order Info: 3024-7 - T4F Performed By: #### L 500.4050, L100.0100, L500.4100, L501.5200, L501.9520, L506.0400 #### [facility] [address] [place], [address] T PROT 7.8 g/dL Normal 6.4-8.2 [facility] Comment on above: Order Comment: Order Date: 12/06/23 Order Info: 0786-1 - CMP Order Info: [id number] - LIPID Order Info: [id number] - MG Order Info: 3016-3 - TSH Order Info: 3024-7 - T4F Performed By: #### L 500.4050, L100.0100, L500.4100, L501.5200, L501.9520, L506.0400 #### [facility] [address] [place], [address] Urea nitrogen [Mass/Vol] 13 mg/dL Normal 7-18 [facility] Comment on above: Order Comment: Order Date: 12/06/23 Order Info: 86-1 - CMP Order Info: [id number] - LIPID Order Info: 47023-0 - MG Order Info: 3016-3 - TSH Order Info: 7 - T4F Performed By: #### L 500.4050, L100.0100, L500.4100, L501.5200, L501.9520, L506.0400 #### [facility] [address] [place], [address] Lipid Profileon 05-30-2024 Cholesterol [Mass/Vol] 179 mg/dL Normal 200 [facility] Comment on above: Order Comment: Order Date: 12/06/23 Order Info: 785-1 - CMP Order Info: 69525-8 - LIPID Order Info: 97600-6 - MG Order Info: 3013 - TSH Order Info: 7 - T4F Result Comment: <200 mg/dL Desirable 200-240 mg/dL Borderline >240 mg/dL High Risk Performed By: #### L 500.4050, L100.0100, L500.4100, L501.5200, L501.9520, L506.0400 #### [facility] [address] [place], [address] Cholesterol in HDL [Mass/Vol] 57 mg/dL Normal [facility] Comment on above: Order Comment: Order Date: 12/06/23 Order Info: 86-1 - CMP Order Info: [id number] - LIPID Order Info: 72459-6 - MG Order Info: 3016-3 - TSH Order Info: 302-7 - T4F Result Comment: The drugs N-Acetylcysteine and Metamizole may falsely depress this assay. Reference Range HDL <40 mg/dL Low HDL Cholesterol HDL >or= 60 mg/dL High HDL Cholesterol Performed By: #### L 500.4050, L100.0100, L500.4100, L501.5200, L501.9520, L506.0400 #### [facility] [address] [place], [address] Cholesterol in LDL [Mass/Vol] 98 mg/dL Normal 0-130 [facility] Comment on above: Order Comment: Order Date: 12/06/23 Order Info: 86-1 - CMP Order Info: [id number] - LIPID Order Info: [id number] - MG Order Info: 3016-3 - TSH Order Info: 3023-7 - T4F Performed By: #### L 500.4050, L100.0100, L500.4100, L501.5200, L501.9520, L506.0400 #### [facility] [address] [place], [address] Cholesterol in VLDL [Mass/Vol] 24 mg/dL Normal 5-40 [facility] Comment on above: Order Comment: Order Date: 12/06/23 Order Info: 785- - CMP Order Info: 81414-6 - LIPID Order Info: [id number] - MG Order Info: 3016-3 - TSH Order Info: 302-7 - T4F Performed By: #### L 500.4050, L100.0100, L500.4100, L501.5200, L501.9520, L506.0400 #### [facility] [address] [place], [address] Triglyceride [Mass/Vol] 118 mg/dL Normal [facility] Comment on above: Order Comment: Order Date: 12/06/23 Order Info: 86-1 - CMP Order Info: 94521-2 - LIPID Order Info: [id number] - MG Order Info: 3016-3 - TSH Order Info: 3024-7 - T4F Result Comment: The drugs N-Acetylcysteine and Metamizole may falsely depress this assay. Serum Triglycerides Reference Interval Normal <150 mg/dL Borderline high 150 - 199 mg/dL High 200 - 499 mg/dL Very High > or = 500 mg/dL Performed By: #### L 500.4050, L100.0100, L500.4100, L501.5200, L501.9520, L506.0400 #### [facility] [address] [place], [address] Magnesiumon 05-30-2024 Magnesium [Mass/Vol] 2.3 mg/dL Normal 1.6-2.[address] [facility] Comment on above: Order Comment: Order Date: 12/06/23 Order Info: 07- - CMP Order Info: [id number] - LIPID Order Info: [id number] - MG Order Info: 3 - TSH Order Info: 3024-05 - T4F Performed By: #### L 500.4050, L100.0100, L500.4100, L501.5200, L501.9520, L506.0400 #### [facility] [address] [place], [address] T4 Free Directon 05-30-2024 T4 FREE DIRECT 0.96 ng/dL Normal 0.76-1.46 [facility] Comment on above: Order Comment: Order Date: 06/05/24 Order Info: 785-11 - CMP Order Info: - LIPID Order Info: 3 - TSH Order Info: 2857-1 - PSA Order Info: 7 - T4F Performed By: #### L 501.9910, L506.0400, L500.4050, L501.9520, L100.0100, L500.4100 #### [facility] [address] [place], [address] Thyroid Stim Hormone (TSH)on 05-30-2024 TSH 3.06 uIU/mL Normal 0.358-3.74 [facility] Comment on above: Order Comment: Order Date: 06/05/24 Order Info: 785-11 - CMP Order Info: [id number] - LIPID Order Info: 3 - TSH Order Info: 2856-11 - PSA Order Info: 3024-7 - T4F Performed By: #### L 501.9910, L506.0400, L500.4050, L501.9520, L100.0100, L500.4100 #### [facility] [address] [place], [place], [address] Urinalysis, Completeon 05-30 BACTERIA RARE Normal None Seen [facility] Comment on above: Order Comment: Order Date: 06/05/24 Order Info: 86-1 - CMP Order Info: [id number] - LIPID Order Info: 3016-01 - TSH Order Info: 2856-11 - PSA Order Info: 3024-7 - T4F Performed By: #### L 501.9910, L506.0400, L500.4050, L501.9520, L100.0100, L500.4100 #### [facility] [address] [place], [place], [address] EPI,SQUAMOUS 0-5 SEEN Normal 0-5 [facility] Comment on above: Order Comment: Order Date: 06/05/24 Order Info: 785- - CMP Order Info: 13755-5 - LIPID Order Info: 3016-01 - TSH Order Info: 2856-11 - PSA Order Info: 3024-7 - T4F Performed By: #### L 501.9910, L506.0400, L500.4050, L501.9520, L100.0100, L500.4100 #### [facility] [address] [place], [place], [address] Mucus Ql (Urine sed) RARE Normal [facility] Comment on above: Order Comment: Order Date: 06/05/24 Order Info: 86-1 - CMP Order Info: [id number] - LIPID Order Info: 3 - TSH Order Info: [id number] - PSA Order Info: 3024-7 - T4F Performed By: #### L 501.9910, L506.0400, L500.4050, L501.9520, L100.0100, L500.4100 #### [facility] [address] [place], [place], [id number] WBC 0-5 SEEN Normal 0-5 [facility] Comment on above: Order Comment: Order Date: 06/05/24 Order Info: 785-1 - CMP Order Info: - LIPID Order Info: 3016-01 - TSH Order Info: 2856-11 - PSA Order Info: 302-7 - T4F Performed By: #### L 501.9910, L506.0400, L500.4050, L501.9520, L100.0100, L500.4100 #### [facility] [address] [place], [place], [id number] RBC 0 SEEN Normal 0-5 [facility] Comment on above: Order Comment: Order Date: 06/05/24 Order Info: 785-11 - CMP Order Info: - LIPID Order Info: 3016-01 - TSH Order Info: 2856-11 - PSA Order Info: 3024-7 - T4F Performed By: #### L 501.9910, L506.0400, L500.4050, L501.9520, L100.0100, L500.4100 #### [facility] [address] [place], [place], [id number] Absolute lymphocyte countOrd ered By: Kailyn Ibrahim on 05-17-2023 Lymphocytes Auto (Unsp spec) [#/Vol] 1.60 10*3/uL 0.83-4.51 [facility] Basophil percentageOrdered B y: Kailyn Ibrahim on 05-17-2023 Basophil percentage 0 SEEN /hpf 0-[address] [facility] Basophils/100 WBC (Bld) 0.9 % 0-1 [facility] Bilirubin [Mass/Vol] 1.10 mg/dL 0.20-1.[address] [facility] Comment on above: For patients on eltr ombopag therapy, use of Dimension [place] TBIL is not recommended. Chloride [Moles/Vol] 107 mmol/L 98-[address] [facility] Eosinophils/100 WBC (Bld) 0.7 % 0-5 [facility] Glucose [Mass/Vol] 91 mg/dL 74-106 [facility] Neutrophils (Bld) [#/Vol] 3.2 10*3/uL 2.0-7.7 [facility] Neutrophils/100 WBC (Bld) 58.9 % 47-70 [facility] Potassium [Moles/Vol] 4.3 mmol/L 3.5-5.1 [facility] Protein [Mass/Vol] 7.6 g/dL 6.4-8.2 [facility] Sodium [Moles/Vol] 139 mmol/L 136-145 [facility] WBC (Bld) [#/Vol] 5.4 10*3/uL 4.4-11.0 [facility] Bilirubin Test strip Ql (U)O rdered By: Kailyn Ibrahim on 05-17-2023 Bilirubin Ql (U) Negative Negative [facility] Blood erythrocytes count (nu mber/volume)Ordered By: Kailyn Ibrahim on 05-17-2023 RBC (Bld) [#/Vol] 5.13 10*6/uL 4.6-6.2 [facility] Blood hemoglobin measurement (mass/volume)Ordered By: Kailyn Ibrahim on 05-17-2023 Hemoglobin (Bld) [Mass/Vol] 16.1 g/dL 13.0-16.5 [facility] Blood lymphocytes/100 leukoc ytesOrdered By: Kailyn Ibrahim on 05-17-2023 Lymphocytes/100 WBC (Bld) 29.5 % 19-41 [facility] Blood monocytes/100 leukocyt esOrdered By: Kailyn Ibrahim on 05-17-2023 Monocytes/100 WBC (Bld) 9.6 % 0-10 [facility] Blood platelet mean volumeOr dered By: Kailyn Ibrahim on 05-17-2023 Platelet mean volume (Bld) [Entitic vol] 10.2 fL 6.2-12.0 [facility] Determination of erythrocyte mean corpuscular volume (MCV)Ordered By: Kailyn Ibrahim on 05-17-2023 MCV (RBC) [Entitic vol] 89.3 fL 80-94 [facility] Hematocrit Auto (Bld) [Volum e fraction]Ordered By: Kailyn Ibrahim on 05-17-2023 Hematocrit (Bld) [Volume fraction] 45.8 % 40-54 [facility] Ketones Test strip Ql (U)Ord ered By: Kailyn Ibrahim on 05-17-2023 Ketones Ql (U) Negative Negative [facility] - Chemistry and C hemistry - challengeOrdered By: Kailyn Ibrahim on 05-17-2023 ALP [Catalytic activity/Vol] 83 U/L 45-117 [facility] ALT [Catalytic activity/Vol] 38 U/L 16-61 [facility] CO2 [Moles/Vol] 27.0 mmol/L 21.0-32.0 [facility] Free T4 [Mass/Vol] 1.02 ng/dL 0.76-1.46 [facility] Globulin (S) [Mass/Vol] 4.0 g/dL 2.2-4.2 [facility] Urea nitrogen/Creatinine [Mass ratio] 16.5 mg/mg 10-20 [facility] - Hematology and Cell countsOrdered By: Kailyn Ibrahim on 05-17-2023 Erythrocyte distribution width (RBC) [Entitic vol] 41.1 fL 35.1-43.9 [facility] Erythrocyte distribution width (RBC) [Ratio] 12.6 % 11.6-14.6 [facility] Immature granulocytes/100 WBC (Bld) 0.400 % 0.0-0.9 [facility] Comment on above: IG% - Immature Granu locytes (promyelocytes, myelocytes and metamyelocytes) > 1% indicates that a LEFT SHIFT is Present. MCH (RBC) [Entitic mass] 31.4 pg 27.0-32.0 [facility] Nucleated RBC/100 WBC (Bld) [Ratio] 0 % 0-5 [facility] MCHC Auto (RBC) [Mass/Vol]Or dered By: Kailyn Ibrahim on 05-17-2023 MCHC (RBC) [Mass/Vol] 35.2 g/dL 32-36 [facility] Mucus LM Ql (Urine sed)Order ed By: Kailyn Ibrahim on 05-17-2023 Mucus Ql (Urine sed) 0 SEEN /hpf [facility] Nitrite Test strip Ql (U)Ord ered By: Kailyn Ibrahim on 05-17-2023 Nitrite Ql (U) Negative Negative [facility] No Panel InformationOrdered By: Kailyn Ibrahim on 05-17-2023 Estimated GFR (MDRD) Amer 91 mL/min >60 [facility] Comment on above: GFR Calc Estimated GFR (MDRD) Non-Af Amer 75 mL/min >60 [facility] Comment on above: Non- GFR Calc Thyroid Stimulating Hormone (TSH) 2.32 uIU/mL 0.358-3.74 [facility] Platelets bldOrdered By: Darshan Ibrahim on 05-17-2023 Platelets (Bld) [#/Vol] 230 10*3/uL 150-450 [facility] Protein Test strip Ql (U)Ord ered By: Kailyn Ibrahim on 05-17-2023 Protein Ql (U) Negative Negative [facility] Serum or plasma albumin josselin urement (mass/volume)Ordered By: Kailyn Ibrahim on 05-17-2023 Albumin [Mass/Vol] 3.6 g/dL 3.2-5.0 [facility] Serum or plasma albumin/glob ulin mass ratioOrdered By: Kailyn Ibrahim on 05-17-2023 Albumin/Globulin [Mass ratio] 0.9 {ratio} 0.9-2.4 [facility] Serum or plasma calcium josselin urement (mass/volume)Ordered By: Kailyn Ibrahim on 05-17-2023 Calcium [Mass/Vol] 8.8 mg/dL 8.5-10.1 [facility] Serum or plasma creatinine m easurement (mass/volume)Ordered By: Kailyn Ibrahim on 05-17-2023 Creatinine [Mass/Vol] 1.09 mg/dL 0.70-1.30 [facility] Comment on above: The validity of the calculated GFR & GFRAA in patients over 70 years has not been determined. Clinical correlation is essential. Serum or plasma urea nitroge n measurement (mass/volume)Ordered By: Kailyn Ibrahim on 05-17-2023 Urea nitrogen [Mass/Vol] 18 mg/dL 7-18 [facility] Squamous epithelial cells de tection in urine sediment by light microscopyOrdered By: Kailyn Ibrahim on 05-17-2023 Epithelial cells.squamous LM Ql (Urine sed) 0 SEEN /hpf 0-5 [facility] Thin prep Papanicolaou smear with manual screeningOrdered By: Kailyn Ibrahim on 05-17-2023 Thin prep Papanicolaou smear with manual screening 34 U/L 15-37 [facility] Thin prep Papanicolaou smear with manual screening 5 5-15 [facility] Urine blood detectionOrdered By: Kailyn Ibrahim on 05-17-2023 RBC Ql (U) Negative Negative [facility] RBC Ql (U) 0 SEEN /hpf 0-5 [facility] Urine clarityOrdered By: Darshan Ibrahim on 05-17-2023 Clarity (U) Sl. Cloudy Clear [facility] Urine color determinationOrd ered By: Kailyn Ibrahim on 05-17-2023 Color (U) Yellow Yellow [facility] Urine glucose detectionOrder ed By: Kailyn Ibrahim on 05-17-2023 Glucose Ql (U) Normal mg/dl Normal [facility] Urine leukocyte esterase det ection by dipstickOrdered By: Kailyn Ibrahim on 05-17-2023 Leukocyte esterase Test strip Ql (U) Negative Negative [facility] Urine pHOrdered By: Kailyn watkins on 05-17-2023 pH (U) 6.5 [pH] 5.0 - 8.0 [facility] Urine sediment bacteria coun t by microscopy (number/high power field)Ordered By: Kailyn Ibrahim on 05-17-2023 Bacteria LM.HPF (Urine sed) [#/Area] 0 /[HPF] None Seen [facility] Urine specific gravity measu rementOrdered By: Kailyn Ibrahim on 05-17-2023 Specific gravity (U) [Rel density] 1.020 1.002-1.03 0 [facility] Urobilinogen Auto test strip Ql (U)Ordered By: Kailyn Ibrahim on 05-17-2023 Urobilinogen Ql (U) Normal mg/dl Normal [facility] Basophil percentageon 2021 Basophil percentage 0 SEEN /hpf 0-[address] [facility] Work Phone: Bilirubin [Mass/Vol] 0.60 mg/dL 0.20-1.[address] [facility] Work Phone: Comment on above: For patients on eltr ombopag therapy, use of Dimension [place] TBIL is not recommended. Chloride [Moles/Vol] 108 mmol/L 98-[address] [facility] Work Phone: Cholesterol [Mass/Vol] 171 mg/dL <200 [facility] Work Phone: Comment on above: <200 mg/dL Desirable 200-240 mg/dL Borderline >240 mg/dL High Risk Glucose [Mass/Vol] 94 mg/dL 74-106 [facility] Work Phone: Potassium [Moles/Vol] 3.8 mmol/L 3.5-5.1 [facility] Work Phone: Protein [Mass/Vol] 7.3 g/dL 6.4-8.2 [facility] Work Phone: Sodium [Moles/Vol] 141 mmol/L 136-145 [facility] Work Phone: Triglyceride [Mass/Vol] 106 mg/dL <199 [facility] Work Phone: Comment on above: The drugs N-Acetylcy steine and Metamizole may falsely depress this assay.Serum Triglycerides Reference Interval Normal <150 mg/dL Borderline high 150 - 199 mg/dL High 200 - 499 mg/dL Very High > or = 500 mg/dL Bilirubin Test strip Ql (U)o n 05-20-2022 Bilirubin Ql (U) Negative Negative [facility] Work Phone: Calcium oxalate crystals det ection in urine sediment by light microscopyon 05-20-2022 Calcium oxalate crystals LM Ql (Urine sed) 1+ /hpf [facility] Work Phone: Ketones Test strip Ql (U)on 05-20-2022 Ketones Ql (U) Negative Negative [facility] Work Phone: Laboratory - Chemistry and C hemistry - challengeon 05-20-2022 ALP [Catalytic activity/Vol] 91 U/L 45-117 [facility] Work Phone: ALT [Catalytic activity/Vol] 42 U/L 16-61 [facility] Work Phone: CO2 [Moles/Vol] 27.0 mmol/L 21.0-32.0 [facility] Work Phone: Free T4 [Mass/Vol] 1.10 ng/dL 0.76-1.46 [facility] Work Phone: Globulin (S) [Mass/Vol] 3.5 g/dL 2.2-4.2 [facility] Work Phone: Urea nitrogen/Creatinine [Mass ratio] 16.9 mg/mg 10-20 [facility] Work Phone: Mucus LM Ql (Urine sed)on Mucus Ql (Urine sed) 1+ /hpf [facility] Work Phone: Nitrite Test strip Ql (U)on 05-20-2022 Nitrite Ql (U) Negative Negative [facility] Work Phone: No Panel Informationon 05-20 Estimated GFR (MDRD) Amer 83 mL/min >60 [facility] Work Phone: Comment on above: GFR Calc Estimated GFR (MDRD) Non-Af Amer 69 mL/min >60 [facility] Work Phone: Comment on above: Non- GFR Calc Thyroid Stimulating Hormone (TSH) 1.43 uIU/mL 0.358-3.74 [facility] Work Phone: Protein Test strip Ql (U)on 05-20-2022 Protein Ql (U) Negative Negative [facility] Work Phone: Serum or plasma albumin josselin urement (mass/volume)on 05-20-2022 Albumin [Mass/Vol] 3.8 g/dL 3.2-5.0 [facility] Work Phone: Serum or plasma albumin/glob ulin mass ratioon 05-20-2022 Albumin/Globulin [Mass ratio] 1.1 {ratio} 0.9-2.4 [facility] Work Phone: Serum or plasma calcium josselin urement (mass/volume)on 05-20-2022 Calcium [Mass/Vol] 8.8 mg/dL 8.5-10.1 [facility] Work Phone: Serum or plasma cholesterol in HDL measurement (mass/volume)on 05-20-2022 Cholesterol in HDL [Mass/Vol] 54 mg/dL >40 [facility] Work Phone: Comment on above: The drugs N-Acetylcy steine and Metamizole may falsely depress this assay. Reference Range HDL <40 mg/dL Low HDL Cholesterol HDL >or= 60 mg/dL High HDL Cholesterol Serum or plasma cholesterol in VLDL measurement (mass/volume)on 05-20-2022 Cholesterol in VLDL [Mass/Vol] 21 mg/dL 5-40 [facility] Work Phone: Serum or plasma creatinine m easurement (mass/volume)on 05-20-2022 Creatinine [Mass/Vol] 1.18 mg/dL 0.70-1.30 [facility] Work Phone: Comment on above: The validity of the calculated GFR & GFRAA in patients over 70 years has not been determined. Clinical correlation is essential. Serum or plasma low density lipoprotein (LDL) cholesterol measurement (mass/volume)on 05-20-2022 Cholesterol in LDL [Mass/Vol] 96 mg/dL 0-130 [facility] Work Phone: Serum or plasma urea nitroge n measurement (mass/volume)on 05-20-2022 Urea nitrogen [Mass/Vol] 20 mg/dL 7-18 [facility] Work Phone: Squamous epithelial cells de tection in urine sediment by light microscopyon 05-20-2022 Epithelial cells.squamous LM Ql (Urine sed) 0 SEEN /hpf 0-5 [facility] Work Phone: Thin prep Papanicolaou smear with manual screeningon 05-20-2022 Thin prep Papanicolaou smear with manual screening 26 U/L 15-37 [facility] Work Phone: Thin prep Papanicolaou smear with manual screening 03-20 [facility] Work Phone: Urine blood detectionon 05-06 RBC Ql (U) Negative Negative [facility] Work Phone: RBC Ql (U) 0 SEEN /hpf 0-5 [facility] Work Phone: Urine clarityon 05-20-2022 Clarity (U) Clear Clear [facility] Work Phone: Urine color determinationon 05-20-2022 Color (U) Yellow Yellow [facility] Work Phone: Urine glucose detectionon Glucose Ql (U) Normal mg/dl Normal [facility] Work Phone: Urine leukocyte esterase det ection by dipstickon 05-20-2022 Leukocyte esterase Test strip Ql (U) Negative Negative [facility] Work Phone: Urine pHon 05-20-2022 pH (U) 5.0 [pH] 5.0 - 8.0 [facility] Work Phone: Urine sediment bacteria coun t by microscopy (number/high power field)on 05-20-2022 Bacteria LM.HPF (Urine sed) [#/Area] RARE /hpf None Seen [facility] Work Phone: Urine specific gravity measu rementon 05-20-2022 Specific gravity (U) [Rel density] 1.025 1.002-1.03 0 [facility] Work Phone: Urobilinogen Auto test strip Ql (U)on 05-20-2022 Urobilinogen Ql (U) Normal mg/dl Normal [facility] Work Phone: Coronavirus (COVID-19/SARS-C oV-2) [facility] 09-29-2020 Device Identifier [place] Fusion SARS- CoV-2 assay_[email or web address] 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 [address] ICU [facility] Comment on above: Performed By: #### 6 9405-9 #### [facility] [address] [facility] [place] [address] Illness or injury onset date and time N [facility] Comment on above: Performed By: #### 6 9405-9 #### [facility] [address] [facility] [place] [address] Patient was hospitalized because of this condition N [facility] Comment on above: Performed By: #### 6 9405-9 #### [facility] [address] [place] [address] status N [facility] Comment on above: Performed By: #### 6 9405-9 #### [facility] [address] [place] [address] Resides in congregate care setting [facility] Comment on above: Performed By: #### 6 9405-9 #### [facility] [address] [place] [address] SARS-CoV-2 NOTDET [facility] Comment on above: Result Comment: This test was performed via the Aptima SARS-CoV-2 Assay ([employer]), a Nucleic Acid Amplification Test (NAAT), and has been authorized by the FDA under an Emergency Use Authorization (EUA). The assay is validated for nasopharyngeal (NOTEREADER), nasal, and oropharyngeal (OP) swab specimens. The Limit of Detection is 600 NDU/mL (NAAT Detectable Units/mL) which is comparable to other nucleic acid amplification tests (rt-PCR,NAAT) currently being used to test for SARS-CoV-2. Detection of SARS-CoV-2 may be affected by the sample collection, transport methods and patient factors (e.g., presence of symptoms, and/or stage of infection); therefore a negative result does not rule out the possibility of infection. For updated information, refer to the Center for Disease Control website: www.cdc.gov/coronavirus. Performed By: #### 6 9405-9 #### [facility] [address] [place] [address] Symptomatic as defined by CDC N Normal [facility] Comment on above: Performed By: #### 6 9405-9 #### [facility] [address] [place] [address] Basic Metabolic Panelon 11-2 Anion gap [Moles/Vol] 7.0 mmol/L Normal 6.0-18.0 [facility] Comment on above: Performed By: #### 2 4317-0 #### [facility] [address] [place] [address] Calcium [Mass/Vol] 8.6 mg/dL Low 8.9-10.3 [facility] Comment on above: Performed By: #### 2 4317-0 #### [facility] [address] [place] [address] Chloride [Moles/Vol] 105 mmol/L Normal 98-107 [facility] Comment on above: Performed By: #### 2 4317-0 #### [facility] [address] [place] [address] CO2 [Moles/Vol] 26 mmol/L Normal 22-32 [facility] Comment on above: Performed By: #### 2 4317-0 #### [facility] [address] [place] [address] Creatinine [Mass/Vol] 0.96 mg/dL Normal 0.60-1.30 [facility] Comment on above: Performed By: #### 2 4317-0 #### [facility] [address] [place] [address] Glucose [Mass/Vol] 98 mg/dL Normal 70-99 [facility] Comment on above: Result Comment: U pdated ADA Reference Range A normal fasting glucose concentration is less than 100 mg/dL. An impaired fasting glucose concentration is 100-125 mg/dL. A provisional diagnosis of diabetes mellitus can be made when a fasting glucose concentration is greater than 125 mg/dL. Performed By: #### 2 4317-0 #### [facility] [address] [place] [address] Potassium [Moles/Vol] 3.9 mmol/L Normal 3.6-5.1 [facility] Comment on above: Performed By: #### 2 4317-0 #### [facility] [address] [place] [address] Sodium [Moles/Vol] 138 mmol/L Normal 136-145 [facility] Comment on above: Performed By: #### 2 4317-0 #### [facility] [address] [place] [address] Urea nitrogen (BldV) [Mass/Vol] 17 mg/dL Normal 8-20 [facility] Comment on above: Performed By: #### 2 4317-0 #### [facility] [address] [place] [address] CBCon 09-27-2020 Erythrocyte distribution width (RBC) [Entitic vol] 13.1 % Normal 11.0-14.8 [facility] Comment on above: Performed By: #### 2 4317-0 #### [facility] [address] [place] [address] Hematocrit (Bld) [Volume fraction] 37.6 % Low 39.0-49.0 [facility] Comment on above: Performed By: #### 2 4317-0 #### [facility] [address] [place] [address] Hemoglobin (Bld) [Mass/Vol] 12.7 g/dL Low 13.5-17.5 [facility] Comment on above: Performed By: #### 2 4317-0 #### [facility] [address] [place] [address] MCH (RBC) [Entitic mass] 30.8 Picograms Normal 27.0-34.0 [facility] Comment on above: Performed By: #### 2 4317-0 #### [facility] [address] [place] [address] MCHC (RBC) [Mass/Vol] 33.8 g/dL Normal 32.0-36.0 [facility] Comment on above: Performed By: #### 2 4317-0 #### [address] [place] [address] MCV (RBC) [Entitic vol] 91.0 fL Normal 80.0-97.0 [facility] Comment on above: Performed By: #### 2 4317-0 #### [address] [address] Platelet mean volume (Bld) [Entitic vol] 9.6 fL Normal 6.2-12.1 [facility] Comment on above: Performed By: #### 2 4317-0 #### [address] [address] Platelets (Bld) [#/Vol] 241 thou/mcL Normal 142-424 [facility] Comment on above: Performed By: #### 2 4317-0 #### [address] [address] RBC (Bld) [#/Vol] 4.13 million/mcL Low 4.30-5.70 M [facility] Comment on above: Performed By: #### 2 4317-0 #### [address] [address] WBC (Bld) [#/Vol] 7.8 thou/mcL Normal 4.6-10.2 [facility] Comment on above: Performed By: #### 2 4317-0 #### [address] [address] GFRaaon 09-27-2020 GFR/1.73 sq M predicted among blacks MDRD (S/P/Bld) [Vol rate/Area] mL/min/{1.73_m2} Normal [facility] Comment on above: Result Comment: The MDRD equation has not been validated for those over 70 years, women, patients with serious co-morbid conditions, or with extremes of body size, muscle mass of nutritional status. Performed By: #### 6 9405-9 #### [facility] [address] [place] [address] GFRbbon 09-27-2020 GFR/1.73 sq M predicted among non-blacks MDRD (S/P/Bld) [Vol rate/Area] mL/min/{1.73_m2} Normal [facility] Comment on above: Performed By: #### 6 9405-9 #### [facility] [address] [place] [address] Magnesium Levelon 09-27-2020 Magnesium [Mass/Vol] 2.2 mg/dL Normal 1.8-2.5 [facility] Comment on above: Performed By: #### 1 9123-9 #### [address] [address] Patient Summaryon 09-27-2020 Patient Summary PATIENT DISCHARGE INSTRUCTIONS If you are having an emergency and are not able to reach your physician, CALL 911 or go to the nearest emergency room and take this document with you. [facility] 09/27/20 11:21 [address] [place]. [address] PATIENT INFORMATION ------ Name: VINH COLBY Address: [address] [place] [address] [place] [address] Age: 50 Years Phone: [phone] : 1970 12:00 MRN: [id number] Sex: Male Race: White Ethnicity: Not Hispan/Lat Admitted From: Clinic or [facility] Medical Service: Surgery Nurse Unit/Bed: (OR) [facility] Admit Date: 09/22/2020 06:15 PCP: Physician, PCP Unknown PHYSICIANS INVOLVED WITH CARE Attending Physicians: Demarcus Rubio MD - Surgery Admitting Physician: None found Primary Care Physician:Physician, PCP Unknown,Family Practice,,, - Consults: None found FOLLOW-UP APPOINTMENTS: Provider: Specialty: Address: Date: PCP Unknown Physician Family Practice Follow-up as needed Provider: Specialty: Address: Date: Demarcus Rubio MD Surgery [address] [facility] [address] [place] [address] (2) 7 to 10 days Comment: Call for an Appointment ALLERGIES: No Known Medication Allergies No Known Allergies MEASUREMENTS: Last Charted: Weight: Admission 99.50 kg /219 lbs 6 oz ( 09/22/20 07:35:00 ) MEDICATIONS For: VINH COLBY This is your list of medication(s). Keep it with you at all times. Your doctor may have changed doses, add, held or stopped some of your medications. Please share this information with your family doctor. Carry this list of medications with you in case of an emergency. Update it when medications are stopped, doses are changed, or new medications (including jzhk-zcn-mijlyee products) are added. Ask your doctor if you have any questions. THESE ARE THE MEDICATIONS YOU SHOULD BE TAKING Acetaminophen-OxyCODONE (acetaminophen-oxyCODONE 325 mg-5 mg oral tablet) 1 Tab(s) By Mouth every 4 hours as needed Pain - Moderate for 7 Days. Refills: 0., This medication can be addictive. Only take for breakthrough pain Diagnosis: Status post repair of recurrent ventral hernia [Z98.890] AmLODIPine-Valsartan (amLODIPine-valsartan 5 mg-160 mg oral tablet) 1 Tab(s) By Mouth once a day. sildenafil (sildenafil 100 mg oral tablet) 1 Tab(s) By Mouth As Needed. MEDICATION CHANGE DETAILS (Not your Final Home Medication List) During the course of your visit, your home medication list was updated with the most current information. The details of those changes are shown below: NEW MEDICATIONS Printed Prescriptions Acetaminophen-OxyCODONE (acetaminophen-oxyCODONE 325 mg-5 mg oral tablet) 1 Tab(s) By Mouth every 4 hours as needed Pain - Moderate for 7 Days. Refills: 0., This medication can be addictive. Only take for breakthrough pain Comment UPDATED MEDICATIONS None UNCHANGED MEDICATIONS Other Medications AmLODIPine-Valsartan (amLODIPine-valsartan 5 mg-160 mg oral tablet) 1 Tab(s) By Mouth once a day. Comment sildenafil (sildenafil 100 mg oral tablet) 1 Tab(s) By Mouth As Needed. Comment STOP TAKING THESE MEDICATIONS None DO NOT TAKE UNTIL YOU TALK TO YOUR DOCTOR None NON-MEDICATION PRESCRIPTION SCHEDULING PHONE NUMBER: SELECTED LAB RESULTS Lab Result Order Date Hemoglobin 12.7 gm/dL 09/27/2020 Hematocrit 37.6 % 09/27/2020 WBC Count 7.8 thou/mcL 09/27/2020 Platelet Count 241 thou/mcL 09/27/2020 Sodium Level 138 mMol/L 09/27/2020 Potassium Level 3.9 mMol/L 09/27/2020 Creatinine 0.96 mg/dL 09/27/2020 BUN 17 mg/dL 09/27/2020 Glucose Level 98 mg/dL 09/27/2020 ADVANCE DIRECTIVE/HEALTH CARE DECISIONS: Advance Directive/Health Care Decisions Executed by Patient: Yes Advance Directive/Health Care Decisions Type: Living Will Copy of Advance Directive/Health Care Decisions on Chart: Patient/Family asked to provide copy DISCHARGE INSTRUCTIONS: Discharge Diet Continue your regular diet. Discharge Activities You may feel like resting more after surgery. Slowly start to do more each day. Rest when needed. Discharge Medication Info Ask your doctor before taking any supplements, herbal or odgy-zaz-yksitrp medications. Call your doctor if you have any questions regarding cost, dose, frequency or purpose of medications. Notify Physician If your incision comes apart. If your bandage becomes soaked with blood or other drainage. Wound and Personal Care No tub baths, hot tubs, Jacuzzi's or swimming (pools or lakes) until you have permission from your doctor. Watch your incision for signs of infection: yellow or green drainage; redness spreading around incision; foul odor; increasing swelling and/or pain. You may shower, but do not take tub baths until cleared by your physician. Pat incision dry. Additional Discharge Info Bring your discharge instructions and all of your medications to your doctors appointments. SUICIDE HOTLINE: Your mental and emotional well-being are important. If you are in a mental health crisis, or having thoughts of suicide, please call the nationwide suicide hotline, anytime day or night, at 7-307-648-NHZY. It's easy to sign up for [email or web address]: 1. Visit [email or web address] ([email or web address])e alth 2. Click on "[place] for [email or web address]" 3. Verify your identity by entering your last name and date of (MM/DD/YYYY). 4. You'll be asked to set up a username and password. 5. Next, you'll create three security questions. Be sure to supply answers that are not easy for others to guess or discover. 6. If all information (first name, last name and date of ) matches what we have on file, we'll then send a PIN to your phone that you will be asked to enter. 7. When your Identity is verified, you'll be able to access your patient record 8. Once all of this is complete and you've successfully activated your account, you'll be redirected to the [employer] login page. Login and check to see your results Questions? For help with account enrollment, call [email or web address] Customer Support at [phone] (toll-free) PATIENT EDUCATION Open Hernia Repair, Care After Refer to this sheet in the next few weeks. These instructions provide you with information on caring for yourself after your procedure. Your health care provider may also give you more specific instructions. Your treatment has been planned according to current medical practices, but problems sometimes occur. Call your health care provider if you have any problems or questions after your procedure. WHAT TO EXPECT AFTER THE PROCEDURE After your procedure, it is typical to have the following: ???Pain in your abdomen, especially along your incision. You will be given pain medicines to control the pain. ???Constipation. You may be given a stool softener to help prevent this. HOME CARE INSTRUCTIONS ???Only take abyh-jok-tzfbxsp or prescription medicines as directed by your health care provider. ???Keep the incision area dry and clean. You may wash the incision area gently with soap and water 48 hours after surgery. Gently blot or dab the incision area dry. Do not take baths, use swimming pools, or use hot tubs for 10 days or until your health care provider approves. ???Change bandages (dressings) as directed by your health care provider. ???Continue your normal diet as directed by your health care provider. Eat plenty of fruits and vegetables to help prevent constipation. ???Drink enough fluids to keep your urine clear or pale yellow. This also helps prevent constipation. ???Do not drive until your health care provider says it is okay. ???Do not lift anything heavier than 10 lb (4.5 kg) or play contact sports for 4 weeks or until your health care provider approves. ???Follow up with your health care provider as directed. Ask your health care provider when to make an appointment to have your stitches (sutures) or alina removed. SEEK MEDICAL CARE IF: ???You have increased bleeding coming from the incision site. ???You have blood in your stool. ???You have increasing pain in the incision area. ???You see redness or swelling in the incision area. ???You have fluid (pus) coming from the incision. ???You have a fever. ???You notice a bad smell coming from the incision area or dressing. SEEK IMMEDIATE MEDICAL CARE IF: ???You develop a rash. ???You have chest pain or shortness of breath. ???You feel lightheaded or feel faint. This information is not intended to replace advice given to you by your health care provider. Make sure you discuss any questions you have with your health care provider. Document Released: 05/12/2006 Document Revised: 11/13/2015 Document Reviewed: 06/04/2014 [employer] Interactive Patient Education ?2016 [employer] Bulb Drain Home Care A bulb drain consists of a thin rubber tube and a soft, round bulb that creates a gentle suction. The rubber tube is placed in the area where you had surgery. A bulb is attached to the end of the tube that is outside the body. The bulb drain removes excess fluid that normally builds up in a surgical wound after surgery. The color and amount of fluid will vary. Immediately after surgery, the fluid is bright red and is a little thicker than water. It may gradually change to a yellow or pink color and become more thin and water-like. When the amount decreases to about 1 or 2 tbsp in 24 hours, your health care provider will usually remove it. DAILY CARE ???Keep the bulb flat (compressed) at all times, except while emptying it. The flatness creates suction. You can flatten the bulb by squeezing it firmly in the middle and then closing the cap. ???Keep sites where the tube enters the skin dry and covered with a bandage (dressing). ???Secure the tube 1?2 in (2.5?5.1 cm) below the insertion sites to keep it from pulling on your stitches. The tube is stitched in place and will not slip out. ???Secure the bulb as directed by your health care provider. ???For the first 3 days after surgery, there usually is more fluid in the bulb. Empty the bulb whenever it becomes half full because the bulb does not create enough suction if it is too full. The bulb could also overflow. Write down how much fluid you remove each time you empty your drain. Add up the amount removed in 24 hours. ???Empty the bulb at the same time every day once the amount of fluid decreases and you only need to empty it once a day. Write down the amounts and the 24-hour totals to give to your health care provider. This helps your health care provider know when the tubes can be removed. EMPTYING THE BULB DRAIN Before emptying the bulb, get a measuring cup, a piece of paper and a pen, and wash your hands. ???Gently run your fingers down the tube (stripping) to empty any drainage from the tubing into the bulb. This may need to be done several times a day to clear the tubing of clots and tissue. ???Open the bulb cap to release suction, which causes it to inflate. Do not touch the inside of the cap. ???Gently run your fingers down the tube (stripping) to empty any drainage from the tubing into the bulb. ???Hold the cap out of the way, and pour fluid into the measuring cup. ?Squeeze the bulb to provide suction.?Replace the cap. ?Check the tape that holds the tube to your skin. If it is becoming loose, you can remove the loose piece of tape and apply a new one. Then, pin the bulb to your shirt. ?Write down the amount of fluid you emptied out. Write down the date and each time you emptied your bulb drain. (If there are 2 bulbs, note the amount of drainage from each bulb and keep the totals separate. Your health care provider will want to know the total amounts for each drain and which tube is draining more.) ?Flush the fluid down the toilet and wash your hands. ?Call your health care provider once you have less than 2 tbsp of fluid collecting in the bulb drain every 24 hours. If there is drainage around the tube site, change dressings and keep the area dry. Cleanse around tube with sterile saline and place dry gauze around site. This gauze should be changed when it is soiled. If it stays clean and unsoiled, it should still be changed daily. SEEK MEDICAL CARE IF: ???Your drainage has a bad smell or is cloudy. ?You have a fever. ?Your drainage is increasing instead of decreasing. ?Your tube fell out. ?You have redness or swelling around the tube site. ?You have drainage from a surgical wound. ?Your bulb drain will not stay flat after you empty it. ? MAKE SURE YOU: ???Understand these instructions. ???Will watch your condition. ???Will get help right away if you are not doing well or get worse. This information is not intended to replace advice given to you by your health care provider. Make sure you discuss any questions you have with your health care provider. Document Released: 10/20/2001 Document Revised: 11/13/2015 Document Reviewed: 03/27/2013 [employer] Interactive Patient Education ?2016 [employer] What You Should Know About Opioid Medicine What is an Opioid? Opioid medications are used to treat moderate to severe pain. Morphine, Oxycodone (Percocet?), Hydromorphone (Dilaudid?) and Hydrocodone ([place]?) are some types of opioids. How do Opioids work? Opioids reduce the pain signals sent to your brain, which decrease your feelings of pain. Opioids may reduce your pain, but may not take all the pain away. What are the risks from taking opioids? Prescription opioids carry serious risks of physical dependence, addiction and overdose, with wholesale loan processor use. If you take too much of an opioid it can cause sudden . Other risks include but are not limited to: - Physical dependence means you have symptoms of withdrawal when a medication is stopped. - Addiction is a brain disease. Medications change the structure of the brain and how the brain works. These brain changes may be long lasting and can lead to harmful behaviors. - Overdose means you took too much medication. Opioid overdose can result in . Make sure you read all of the medication sheet you received with your prescription. Call 911 right away if you have any of these signs of overdose: - Pale or bluish skin color - Trouble breathing - Severe confusion; not knowing where you are - Your heart is beating slower than normal - You see or hear things that are not real Tell the people you live with that you are taking a medicine that can stop your breathing. Ask them to watch for slow, shallow, or trouble breathing. Tell them to call 911 right away if you have trouble breathing or they cannot wake you up. What you need to know while taking Opioid medication: - Do Not take more medication, or higher doses than prescribed, as you may stop breathing or pass out. - Do not take opioids more often or in higher doses than prescribed. Call your doctor if your pain is not controlled. - Do Not drink alcohol (beer, wine or liquor) while taking this medication, as you may stop breathing or pass out. - Do Not take sleeping pills (like zolpidem (Ambien?) or temazepam (Restoril?)or anti-anxiety medication (like alprazolam (Xanax?), diazepam (Valium?), and lorazepam (Ativan ?) while taking this medication, as you may stop breathing or pass out. - Do Not crush or alter opioid medication or take it in ways not prescribed by your doctor. - Do Not drive or do tasks that require you to be alert after taking this medication. - If you are , talk to your doctor. Opioids may harm your or baby. What are the side effects from taking opioids? The most common side effects are: - Hard stools (Constipation) - Upset stomach, throwing up and dry mouth - Feeling sleepy - Feeling more pain - Confusion - Depression, low mood, feeling sad or nervous - Itching and sweating - Trouble passing urine Will I become addicted to opioid medication? Addiction is not common when this medication is used for a short time. But, when opioid medications are misused addiction is possible. Talk with your doctor about how to switch to using only non-opioid pain treatment. Please talk to your doctor about your concerns about addiction. How do I safely store and dispose of my opioids? Storage: - Keep your medications secure. - Keep your medications, including any medication patches,out of reach of others (this includes children, friends, family and pets). - Keep your opioids, and all medications, in the pill bottle from the pharmacy. Keep the lid closed. Disposal: - Safely throw out unused opioids: Contact your local pharmacy for how to throw out unused opioid medications or find your local medicine take-back site (http://disposemymeds.org/ ) - Follow these steps if you can't find a medicine take-back site to throw out , unused or unwanted medicines: Step #1: Mix medicine with used coffee grounds, dirt, or rip litter. Step #2: Put medicines in a sealed plastic bag. Step #3: Place plastic bag in the trash. Step #4: Take prescription bottle and scratch out personal information, then recycle or throw away. - Throw out patch medications by folding them in half with the sticky sides together,and then flushing them down a toilet. Do not place them in the household trash where children or pets can find them. It is against the law to share or sell your opioid medication. What else can I use to treat my pain? Non-opioid pain medications (such as Tylenol?, Motrin?, and Aleve?) may also help with your pain. If your doctor approves, these medications may be used with an opioid medication ordered for you. Non-opioid pain medications also have risks and side effects; please ask your doctor if these medications are safe for you. Many opioid medications also have acetaminophen (Tylenol?) in it. Very bad, and sometimes deadly, liver problems can happen with too much acetaminophen use. What are other ways to help ease your pain? - Heat or ice - Stretching - A pillow under the painful area - Massage - Talking to someone about how your thoughts and feelings affect your pain - Listening to music Talk to your doctor to make sure these actions are safe for you PATIENT DISCHARGE INSTRUCTION Signature Page for: VINH COLBY Date/Time: 09/27/2020 11:21:44 A Clinician has explained the information on my discharge instructions and has provided me with a copy. My questions have been answered to my satisfaction. Patient Signature Date/Time Responsible Party Date/Time Relationship to Patient _ Clinician Signature ____ Date/Time __ Normal [facility] Phosphorus Levelon 0 Phosphate [Moles/Vol] 3.4 mg/dL Normal 2.4-4.7 [facility] Comment on above: Performed By: #### 6 9405-9 #### [facility] [address] [place] [address] Basic Metabolic Panelon 11- Anion gap [Moles/Vol] 5.0 mmol/L Low 6.0-18.0 [facility] Comment on above: Performed By: #### 6 9405-9 #### [facility] [address] [place] [address] Calcium [Mass/Vol] 8.2 mg/dL Low 8.9-10.3 [facility] Comment on above: Performed By: #### 6 9405-9 #### [facility] [address] [place] [address] Chloride [Moles/Vol] 106 mmol/L Normal 98-107 [facility] Comment on above: Performed By: #### 6 9405-9 #### [facility] [address] [place] [address] CO2 [Moles/Vol] 27 mmol/L Normal 22-32 [facility] Comment on above: Performed By: #### 6 9405-9 #### [facility] [address] [place] [address] Creatinine [Mass/Vol] 0.95 mg/dL Normal 0.60-1.30 [facility] Comment on above: Performed By: #### 6 9405-9 #### [facility] [address] [place] [address] Glucose [Mass/Vol] 97 mg/dL Normal 70-99 [facility] Comment on above: Result Comment: U pdated ADA Reference Range A normal fasting glucose concentration is less than 100 mg/dL. An impaired fasting glucose concentration is 100-125 mg/dL. A provisional diagnosis of diabetes mellitus can be made when a fasting glucose concentration is greater than 125 mg/dL. Performed By: #### 6 9405-9 #### [facility] [address] [place] [address] Potassium [Moles/Vol] 4.3 mmol/L Normal 3.6-5.1 [facility] Comment on above: Performed By: #### 6 9405-9 #### [facility] [address] [place] [address] Sodium [Moles/Vol] 138 mmol/L Normal 136-145 [facility] Comment on above: Performed By: #### 6 9405-9 #### [place] [address] [facility] [place] [address] Urea nitrogen (BldV) [Mass/Vol] 16 mg/dL Normal 8-20 [facility] Comment on above: Performed By: #### 6 9405-9 #### [place] [address] [facility] [place] [address] CBCon 09-26-2020 Erythrocyte distribution width (RBC) [Entitic vol] 13.1 % Normal 11.0-14.8 [facility] Comment on above: Performed By: #### 2 4317-0 #### [address] [address] Hematocrit (Bld) [Volume fraction] 36.0 % Low 39.0-49.0 [facility] Comment on above: Performed By: #### 2 4317-0 #### [address] [address] Hemoglobin (Bld) [Mass/Vol] 11.9 g/dL Low 13.5-17.5 [facility] Comment on above: Performed By: #### 2 4317-0 #### [address] [address] MCH (RBC) [Entitic mass] 30.2 Picograms Normal 27.0-34.0 [facility] Comment on above: Performed By: #### 2 4317-0 #### [address] [place] [address] MCHC (RBC) [Mass/Vol] 33.1 g/dL Normal 32.0-36.0 [facility] Comment on above: Performed By: #### 2 4317-0 #### [address] [address] MCV (RBC) [Entitic vol] 91.4 fL Normal 80.0-97.0 [facility] Comment on above: Performed By: #### 2 4317-0 #### [address] [place] [address] Platelet mean volume (Bld) [Entitic vol] 9.5 fL Normal 6.2-12.1 [facility] Comment on above: Performed By: #### 2 4317-0 #### [facility] [address] [place] [address] Platelets (Bld) [#/Vol] 212 thou/mcL Normal 142-424 [facility] Comment on above: Performed By: #### 2 4317-0 #### [address] [address] RBC (Bld) [#/Vol] 3.94 million/mcL Low 4.30-5.70 M [facility] Comment on above: Performed By: #### 2 4317-0 #### [address] [address] WBC (Bld) [#/Vol] 9.1 thou/mcL Normal 4.6-10.2 [facility] Comment on above: Performed By: #### 2 4317-0 #### [address] [place] [address] Magnesium Levelon 09-26-2020 Magnesium [Mass/Vol] 2.1 mg/dL Normal 1.8-2.5 [facility] Comment on above: Performed By: #### 2 4321-2 #### [address] [address] Phosphorus Levelon 0 Phosphate [Moles/Vol] 3.1 mg/dL Normal 2.4-4.7 [facility] Comment on above: Performed By: #### 2 4321-2 #### [address] [address] Basic Metabolic Panelon 09-07 0 Anion gap [Moles/Vol] 3.0 mmol/L Low 6.0-18.0 [facility] Comment on above: Performed By: #### 6 9405-9 #### [address] [address] Calcium [Mass/Vol] 8.0 mg/dL Low 8.9-10.3 [facility] Comment on above: Performed By: #### 6 9405-9 #### [facility] [address] [place] [address] Chloride [Moles/Vol] 105 mmol/L Normal 98-107 [facility] Comment on above: Performed By: #### 6 9405-9 #### [facility] [address] [place] [address] CO2 [Moles/Vol] 31 mmol/L Normal 22-32 [facility] Comment on above: Performed By: #### 6 9405-9 #### [facility] [address] [facility] [place] [address] Creatinine [Mass/Vol] 1.09 mg/dL Normal 0.60-1.30 [facility] Comment on above: Performed By: #### 6 9405-9 #### [facility] [address] [facility] [place] [address] Glucose [Mass/Vol] 99 mg/dL Normal 70-99 [facility] Comment on above: Result Comment: U pdated ADA Reference Range A normal fasting glucose concentration is less than 100 mg/dL. An impaired fasting glucose concentration is 100-125 mg/dL. A provisional diagnosis of diabetes mellitus can be made when a fasting glucose concentration is greater than 125 mg/dL. Performed By: #### 6 9405-9 #### [facility] [address] [place] [address] Potassium [Moles/Vol] 4.3 mmol/L Normal 3.6-5.1 [facility] Comment on above: Performed By: #### 6 9405-9 #### [facility] [address] [facility] [facility] [place] [address] Sodium [Moles/Vol] 139 mmol/L Normal 136-145 [facility] Comment on above: Performed By: #### 6 9405-9 #### [facility] [address] [facility] [place] [address] Urea nitrogen (BldV) [Mass/Vol] 16 mg/dL Normal 8-20 [facility] Comment on above: Performed By: #### 6 9405-9 #### [address] [place] [address] CBCon 09-25-2020 Erythrocyte distribution width (RBC) [Entitic vol] 13.2 % Normal 11.0-14.8 [facility] Comment on above: Performed By: #### 2 4317-0 #### [address] [address] Hematocrit (Bld) [Volume fraction] 36.5 % Low 39.0-49.0 [facility] Comment on above: Performed By: #### 2 4317-0 #### [address] [place] [address] Hemoglobin (Bld) [Mass/Vol] 11.9 g/dL Low 13.5-17.5 [facility] Comment on above: Performed By: #### 2 4317-0 #### [address] [address] MCH (RBC) [Entitic mass] 30.3 Picograms Normal 27.0-34.0 [facility] Comment on above: Performed By: #### 2 4317-0 #### [address] [address] MCHC (RBC) [Mass/Vol] 32.6 g/dL Normal 32.0-36.0 [facility] Comment on above: Performed By: #### 2 4317-0 #### [address] [place] [address] MCV (RBC) [Entitic vol] 92.9 fL Normal 80.0-97.0 [facility] Comment on above: Performed By: #### 2 4317-0 #### [address] [place] [address] Platelet mean volume (Bld) [Entitic vol] 9.6 fL Normal 6.2-12.1 [facility] Comment on above: Performed By: #### 2 4317-0 #### [facility] [address] [place] [address] Platelets (Bld) [#/Vol] 181 thou/mcL Normal 142-424 [facility] Comment on above: Performed By: #### 2 4317-0 #### [facility] [address] [place] [address] RBC (Bld) [#/Vol] 3.93 million/mcL Low 4.30-5.70 M [facility] Comment on above: Performed By: #### 2 4317-0 #### [facility] [address] [place] [address] WBC (Bld) [#/Vol] 9.7 thou/mcL Normal 4.6-10.2 [facility] Comment on above: Performed By: #### 2 4317-0 #### [facility] [address] [place] [address] GFRaaon 09-25-2020 GFR/1.73 sq M predicted among blacks MDRD (S/P/Bld) [Vol rate/Area] mL/min/{1.73_m2} Normal [facility] Comment on above: Result Comment: The MDRD equation has not been validated for those over 70 years, women, patients with serious co-morbid conditions, or with extremes of body size, muscle mass of nutritional status. Performed By: #### 6 9405-9 #### [facility] [address] [facility] [place] [address] GFRbbon 09-25-2020 GFR/1.73 sq M predicted among non-blacks MDRD (S/P/Bld) [Vol rate/Area] mL/min/{1.73_m2} Normal [facility] Comment on above: Performed By: #### 2 4321-2 #### [facility] [address] [facility] [place] [address] Magnesium Levelon 09-25-2020 Magnesium [Mass/Vol] 2.0 mg/dL Normal 1.8-2.5 [facility] Comment on above: Performed By: #### 6 9405-9 #### [facility] [address] [place] [address] Phosphorus Levelon 0 Phosphate [Moles/Vol] 2.8 mg/dL Normal 2.4-4.7 [facility] Comment on above: Performed By: #### 2 4321-2 #### [facility] [address] [place] [address] Basic Metabolic Panelon 09-06 Anion gap [Moles/Vol] 5.0 mmol/L Low 6.0-18.0 [facility] Comment on above: Performed By: #### 6 9405-9 #### [facility] [address] [place] [address] Calcium [Mass/Vol] 8.2 mg/dL Low 8.9-10.3 [facility] Comment on above: Performed By: #### 6 9405-9 #### [facility] [address] [place] [address] Chloride [Moles/Vol] 104 mmol/L Normal 98-107 [facility] Comment on above: Performed By: #### 6 9405-9 #### [facility] [address] [place] [address] CO2 [Moles/Vol] 31 mmol/L Normal 22-32 [facility] Comment on above: Performed By: #### 6 9405-9 #### [facility] [address] [place] [address] Creatinine [Mass/Vol] 1.19 mg/dL Normal 0.60-1.30 [facility] Comment on above: Performed By: #### 6 9405-9 #### [facility] [address] [place] [address] Glucose [Mass/Vol] 98 mg/dL Normal 70-99 [facility] Comment on above: Result Comment: U pdated ADA Reference Range A normal fasting glucose concentration is less than 100 mg/dL. An impaired fasting glucose concentration is 100-125 mg/dL. A provisional diagnosis of diabetes mellitus can be made when a fasting glucose concentration is greater than 125 mg/dL. Performed By: #### 6 9405-9 #### [facility] [address] [place] [address] Potassium [Moles/Vol] 4.2 mmol/L Normal 3.6-5.1 [facility] Comment on above: Performed By: #### 6 9405-9 #### [facility] [address] [place] [address] Sodium [Moles/Vol] 140 mmol/L Normal 136-145 [facility] Comment on above: Performed By: #### 6 9405-9 #### [facility] [address] [place] [address] Urea nitrogen (BldV) [Mass/Vol] 19 mg/dL Normal 8-20 [facility] Comment on above: Performed By: #### 6 9405-9 #### [address] [place] [address] CBCon 09-24-2020 Erythrocyte distribution width (RBC) [Entitic vol] 13.2 % Normal 11.0-14.8 [facility] Comment on above: Performed By: #### 2 4321-2 #### [address] [place] [address] Hematocrit (Bld) [Volume fraction] 37.2 % Low 39.0-49.0 [facility] Comment on above: Performed By: #### 2 4321-2 #### [address] [place] [address] Hemoglobin (Bld) [Mass/Vol] 12.3 g/dL Low 13.5-17.5 [facility] Comment on above: Performed By: #### 2 4321-2 #### [facility] [address] [place] [address] MCH (RBC) [Entitic mass] 30.8 Picograms Normal 27.0-34.0 [facility] Comment on above: Performed By: #### 2 4321-2 #### [place] [place] [address] MCHC (RBC) [Mass/Vol] 33.1 g/dL Normal 32.0-36.0 [facility] Comment on above: Performed By: #### 2 4321-2 #### [address] [address] MCV (RBC) [Entitic vol] 93.2 fL Normal 80.0-97.0 [facility] Comment on above: Performed By: #### 2 4321-2 #### [address] [address] Platelet mean volume (Bld) [Entitic vol] 9.9 fL Normal 6.2-12.1 [facility] Comment on above: Performed By: #### 2 4321-2 #### [address] [address] Platelets (Bld) [#/Vol] 181 thou/mcL Normal 142-424 [facility] Comment on above: Performed By: #### 2 4321-2 #### [address] [address] RBC (Bld) [#/Vol] 3.99 million/mcL Low 4.30-5.70 M [facility] Comment on above: Performed By: #### 2 4321-2 #### [address] [address] WBC (Bld) [#/Vol] 10.5 thou/mcL High 4.6-10.2 [facility] Comment on above: Performed By: #### 2 4321-2 #### [address] [address] Magnesium Levelon 09-24-2020 Magnesium [Mass/Vol] 2.0 mg/dL Normal 1.8-2.5 [facility] Comment on above: Performed By: #### 6 9405-9 #### [address] [address] Phosphorus Levelon 0 Phosphate [Moles/Vol] 1.9 mg/dL Low 2.4-4.7 [facility] Comment on above: Performed By: #### 2 4321-2 #### [facility] [address] [place] [address] Basic Metabolic Panelon 09-06 Anion gap [Moles/Vol] 3.0 mmol/L Low 6.0-18.0 [facility] Comment on above: Performed By: #### 2 4321-2 #### [facility] [address] [place] [address] Calcium [Mass/Vol] 8.6 mg/dL Low 8.9-10.3 [facility] Comment on above: Performed By: #### 2 4321-2 #### [facility] [address] [place] [address] Chloride [Moles/Vol] 106 mmol/L Normal 98-107 [facility] Comment on above: Performed By: #### 2 4321-2 #### [facility] [address] [place] [address] CO2 [Moles/Vol] 30 mmol/L Normal 22-32 [facility] Comment on above: Performed By: #### 2 4321-2 #### [facility] [address] [place] [address] Creatinine [Mass/Vol] 1.62 mg/dL High 0.60-1.30 [facility] Comment on above: Performed By: #### 2 4321-2 #### [facility] [address] [place] [address] Glucose [Mass/Vol] 103 mg/dL High 70-99 [facility] Comment on above: Result Comment: U pdated ADA Reference Range A normal fasting glucose concentration is less than 100 mg/dL. An impaired fasting glucose concentration is 100-125 mg/dL. A provisional diagnosis of diabetes mellitus can be made when a fasting glucose concentration is greater than 125 mg/dL. Performed By: #### 2 4321-2 #### [facility] [address] [place] [address] Potassium [Moles/Vol] 4.6 mmol/L Normal 3.6-5.1 [facility] Comment on above: Performed By: #### 2 4321-2 #### [facility] [address] [place] [address] Sodium [Moles/Vol] 139 mmol/L Normal 136-145 [facility] Comment on above: Performed By: #### 2 4321-2 #### [facility] [address] [place] [address] Urea nitrogen (BldV) [Mass/Vol] 25 mg/dL High 8-20 [facility] Comment on above: Performed By: #### 2 4321-2 #### [facility] [address] [place] [address] Anion gap [Moles/Vol] 3.0 mmol/L Low 6.0-18.0 [facility] Comment on above: Performed By: #### 2 4321-2 #### [facility] [address] [place] [address] Calcium [Mass/Vol] 8.3 mg/dL Low 8.9-10.3 [facility] Comment on above: Performed By: #### 2 4321-2 #### [facility] [address] [place] [address] Chloride [Moles/Vol] 107 mmol/L Normal 98-107 [facility] Comment on above: Performed By: #### 2 4321-2 #### [facility] [address] [place] [address] CO2 [Moles/Vol] 27 mmol/L Normal 22-32 [facility] Comment on above: Performed By: #### 2 4321-2 #### [facility] [address] [place] [address] Creatinine [Mass/Vol] 2.38 mg/dL High 0.60-1.30 [facility] Comment on above: Performed By: #### 2 4321-2 #### [facility] [address] [place] [address] Glucose [Mass/Vol] 123 mg/dL High 70-99 [facility] Comment on above: Result Comment: U pdated ADA Reference Range A normal fasting glucose concentration is less than 100 mg/dL. An impaired fasting glucose concentration is 100-125 mg/dL. A provisional diagnosis of diabetes mellitus can be made when a fasting glucose concentration is greater than 125 mg/dL. Performed By: #### 2 4321-2 #### [facility] [address] [facility] [place] [address] Potassium [Moles/Vol] 5.0 mmol/L Normal 3.6-5.1 [facility] Comment on above: Performed By: #### 2 4321-2 #### [facility] [address] [place] [address] Sodium [Moles/Vol] 137 mmol/L Normal 136-145 [facility] Comment on above: Performed By: #### 2 4321-2 #### [facility] [address] [facility] [place] [address] Urea nitrogen (BldV) [Mass/Vol] 31 mg/dL High 8-20 [facility] Comment on above: Performed By: #### 2 4321-2 #### [facility] [address] [facility] [place] [address] CBCon 09-23-2020 Erythrocyte distribution width (RBC) [Entitic vol] 13.9 % Normal 11.0-14.8 [facility] Comment on above: Performed By: #### 2 4317-0 #### [facility] [address] [place] [address] Hematocrit (Bld) [Volume fraction] 39.5 % Normal 39.0-49.0 [facility] Comment on above: Performed By: #### 2 4317-0 #### [facility] [address] [place] [address] Hemoglobin (Bld) [Mass/Vol] 12.8 g/dL Low 13.5-17.5 [facility] Comment on above: Performed By: #### 2 4317-0 #### [facility] [address] [place] [address] MCH (RBC) [Entitic mass] 30.3 Picograms Normal 27.0-34.0 [facility] Comment on above: Performed By: #### 2 4317-0 #### [address] [place] [address] MCHC (RBC) [Mass/Vol] 32.4 g/dL Normal 32.0-36.0 [facility] Comment on above: Performed By: #### 2 4317-0 #### [address] [address] MCV (RBC) [Entitic vol] 93.6 fL Normal 80.0-97.0 [facility] Comment on above: Performed By: #### 2 4317-0 #### [address] [address] Platelet mean volume (Bld) [Entitic vol] 9.5 fL Normal 6.2-12.1 [facility] Comment on above: Performed By: #### 2 4317-0 #### [address] [address] Platelets (Bld) [#/Vol] 211 thou/mcL Normal 142-424 [facility] Comment on above: Performed By: #### 2 4317-0 #### [address] [address] RBC (Bld) [#/Vol] 4.22 million/mcL Low 4.30-5.70 [facility] Comment on above: Performed By: #### 2 4317-0 #### [address] [address] WBC (Bld) [#/Vol] 14.6 thou/mcL High 4.6-10.2 [facility] Comment on above: Performed By: #### 2 4317-0 #### [address] [address] GFRaaon 09-23-2020 GFR/1.73 sq M predicted among blacks MDRD (S/P/Bld) [Vol rate/Area] 35 mL/min/{1.73_m2} Normal [facility] Comment on above: Result Comment: The MDRD equation has not been validated for those over 70 years, women, patients with serious co-morbid conditions, or with extremes of body size, muscle mass of nutritional status. Performed By: #### 2 4317-0 #### [facility] [address] [place] [address] GFRbbon 09-23-2020 GFR/1.73 sq M predicted among non-blacks MDRD (S/P/Bld) [Vol rate/Area] 29 mL/min/{1.73_m2} Normal [facility] Comment on above: Performed By: #### 2 4321-2 #### [facility] [address] [place] [address] Magnesium Levelon 09-23-2020 Magnesium [Mass/Vol] 1.9 mg/dL Normal 1.8-2.5 [facility] Comment on above: Performed By: #### 6 9405-9 #### [facility] [address] [facility] [place] [address] OR Nursingon 09-23-2020 OR Nursing [facility] OR Nursing Rec ord Summary Primary Physician: Demarcus Rubio MD Finalized Date/Time: 09/23/20 07:25:20 Pt. Name: VINH COLBY/Sex: 1970 Male Med Rec #: [id number] Physician: Financial #: [id number] Pt. Type: A Room/Bed: 52 Admit/Disch: 09/22/20 06:15:00 - Institution: [facility] OR Case Times Entry 1 Patient Times Patient In Room 09/22/20 08:48:00 Patient Out Room 09/22/20 13:15:00 Surgical Times Start Time 09/22/20 09:15:00 Stop Time 09/22/20 13:10:00 Last Modified By: Carol Cosby RN 09/22/20 13:19:23 [facility] OR Delays Entry 1 Delay Reason Physician Late - Duration (minutes) 18 Min Required to See Patient Last Modified By: Carol Cosby RN 09/22/20 09:04:18 CO OR Case Attendees Entry 1 Entry 2 Entry 3 Case Attendee Earle MARS , Demarcus Cosby RN , Carol Torres RN , Franklyn Ta Role Performed Primary Surgeon shot core drill operator helper First Scrub Time In 09/22/20 08:48:00 09/22/20 08:48:00 09/22/20 08:48:00 Time Out 09/22/20 13:15:00 09/22/20 13:15:00 09/22/20 13:15:00 Procedure Repair Hernia Repair Hernia Repair Hernia Ventral(N/A), Removal Ventral(N/A), Removal Ventral(N/A), Removal Foreign Body(N/A) Foreign Body(N/A) Foreign Body(N/A) Attendee Comment Relief Reason Last Modified By: Henok RN , Amrita Whiting RN , Amrita Whiting RN , Amrita Garcia 09/23/20 07:23:00 09/23/20 07:23:00 09/23/20 07:23:00 Entry 4 Entry 5 Entry [address] CRNA, DO , Maxim Charles MD Role Performed Nurse Rnfa Resident Anesthesiologist Time In 09/22/20 08:48:00 09/22/20 08:48:00 09/22/20 08:48:00 Time Out 09/22/20 13:15:00 09/22/20 13:15:00 09/22/20 13:15:00 Procedure Repair Hernia Repair Hernia Repair Hernia Ventral(N/A), Removal Ventral(N/A), Removal Ventral(N/A), Removal Foreign Body(N/A) Foreign Body(N/A) Foreign Body(N/A) Attendee Comment Relief Reason Last Modified By: Henok RN , Amrita Whiting RN , Amrita Whiting RN , Amrita Garcia 09/23/20 07:23:00 09/23/20 07:23:00 09/23/20 07:23:00 Entry 7 Case Attendee Naya Virgen RN Role Performed RN Time In 09/22/20 11:10:00 Time Out 09/22/20 12:40:00 Procedure Repair Hernia Ventral(N/A), Removal Foreign Body(N/A) Attendee Comment Relief Reason Lunch Last Modified By: Amrita Whiting RN 09/23/20 07:23:00 [facility] OR General Case Telecommunications Repairer 1 OR [facility] 06 ASA Class 2 Case Wound Class Clean Specialty General Surgery Case Level General Complex Diagnosis Preop Diagnosis K43.2 Incisional hernia Postop Same As Preop Yes without obstruction or gangrene R19.00 Intra-abdominal and pelvic swelling, mass and lump, unspecified site Postop Diagnosis K43.2 Incisional hernia without obstruction or gangrene R19.00 Intra-abdominal and pelvic swelling, mass and lump, unspecified site This is a down time No record. Last Modified By: Amrita Whiting RN 09/23/20 07:25:14 General Comments: CASE LEVEL CHANGED PER MULTIPLE PROCEDURE LEVELING TOOL CRITERIA ROSETTA PALENCIA [facility] OR Catheters, Drains, and Tubes Entry 1 Entry 2 Device Type TRAY CARR URINE METER DRAIN ROUND HUBLESS 16FR [id number] 15FR FULL FLUTED VIRGIE 436191 Present on Arrival? No No Location BLADDER ABDOMEN Inserted By Demarcus Rubio MD Comments X2 DC'd at End of Case? No No DC'd By Last Modified By: Carol Cosby RN, RN, Dawn M 09/22/20 09:06:17 09/22/20 13:02:23 [facility] OR Patient Positioning Entry 1 Abdomen Pre Soft Skin Condition Warm, Dry, Intact Procedure Before Body Position Supine Pressure Points No Assessed? Right Arm Position On armboard Left Arm Position On armboard Arm Secured Right, Left Right Leg Position Straight Left Leg Position Straight Safety Strap Applied Yes Safety Strap Thighs Procedure Repair Hernia Location Ventral(N/A), Removal Foreign Body(N/A) Last Modified By: Amrita Whiting RN 09/23/20 07:23:01 [facility] OR Antithrombolytic Devices Entry 1 IPC Intermittent Right, Left IPC Size Knee Pneumatic Compression Unit ID Number [id number] GINNA Hose Foot Pump Last Modified By: Carol Cosby RN 09/22/20 08:42:36 [facility] OR Skin Prep Entry 1 Hair Removal Method None Skin Prep Prep Agents Chlorhexidine Gluconate Prep Site ABDOMEN 2% w Alcohol Prep by Carol Cosby RN Procedure Repair Hernia Ventral(N/A), Removal Foreign Body(N/A) Last Modified By: Amrita Whiting RN 09/23/20 07:23:02 [facility] OR Fire Risk Assessment Entry 1 Alcohol Based Prep Yes Solution Dry Time >3 Minutes or According to Manufactures Instructions. No Pooling Observed. (No Alcohol Prep used Select N/A) Fire Risk Factors Yes = 1, No or N/A = 0 Procedure No Open O2 Source No Site/Incision Above (Face Mask/Nasal Xyphoid Process Cannula) Ignition source Yes Fire Risk Total 1 (Cautery, Laser, Score Fiberoptic Light Source) Last Modified By: Carol Cosby RN 09/22/20 08:41:53 [facility] OR Surgical Safety Checklist Entry 1 TIme Out Verified 09/22/20 09:14:00 Procedure Repair Hernia At: Ventral(N/A), Removal Foreign Body(N/A) Pre-Induction Patient confirms Before Introduction of Additional identity, site and Incision/Suspend surgical team and/or Verification procedure, Anesthesia all Activities new members, Entire safety check complete, (Before surgical team verbally pulse ox on, Confirm Incision/Start of confirm patient, site, patient allergies, Procedure) procedure, Surgeon Patient aspiration risk reviews: what are the was assessed and critical or unexpected equipment/assistance steps, operative available if necessary, duration, and Blood loss assessment; anticipated blood if risk of >500 mL loss?, Anesthesia blood loss (7mL/kg in reviews: are there any children) adequate IV patient-specific access, fluids and/or concerns?, Nursing team blood products planned, reviews: has sterility Implants, devices, been confirmed and are special equipment there any available and patient-specific functioning concerns?, Antibiotic infused/ing and redosing discussed if applicable Fire Risk Yes Assessment Completed Last Modified By: Amrita Whiting RN 09/23/20 07:23:02 [facility] OR Cautery Entry 1 Cautery and Settings Type Monopolar Unit ID Number [id number] Grounding Pad Thigh left lateral Location Last Modified By: Carol Cosby RN 09/22/20 08:43:24 [facility] Irrigation Entry 1 Irrigant 0.9% Saline Irrigant Volume 1000 mL Last Modified By: Carol Cosby RN 09/22/20 08:43:34 [facility] OR Specimens Entry 1 Specimen Description 1. HERNIA SAC -PERMANENT Last Modified By: Carol Cosby RN 11/17/20 13:30:08 [facility] OR Implants Entry 1 Entry 2 Procedure Repair Hernia Repair Hernia Ventral(N/A), Removal Ventral(N/A), Removal Foreign Body(N/A) Foreign Body(N/A) Implant/Explant Implant Implant Wasted Reason Provided by Surgeon No No Implant Identification Description [id number] covidien GRAFT TISS ALLODERM RTU progrip mesh [id number] THICK [id number] Recessing Machine Operator Vertas[place] ALLERGAN Catalog Number [id number] Lot Number [id number] Serial Number [id number] N/A 1 Implant Site abdomen ABDOMEN Quantity 1 1 Expiration Date 03/05/25 No Expiration Date No No Unique Device Indent (MAKAYLA) Human Readable Machine Readable Manufactured Date Tissue Tissue Implanted No Yes Material Used to N/A 0.9% NACL LOT: Prepare/Process [id number] EXP: Tissue 04/05/2023 Processed By: Franklyn Torres RN Last Modified By: Henok PALENCIA , Amrita Gibbosn RN 09/23/20 07:23:03 09/23/20 07:23:03 General Comments: CATALOG NUMBER ADDED S LYNNE RN [facility] Counts Entry 1 Entry 2 Entry 3 Instrument Count Initial Count Done 1st count correct N/A Surgeon Notified of No Yes Yes Count Sponge Count Initial Count Done 1st count correct 2nd count correct X-ray Taken No No No Sharps/Miscellaneous Initial Count Done 1st count correct 2nd count correct Count RN Performing Count Borer RN , Carol Darby Borer RN , Carol Davisr RN , Carol Darby Count Performed with Franklyn Torres RN RN , Franklyn Torres RN , Franklyn Ta Comment Procedure Repair Hernia Repair Hernia Repair Hernia Ventral(N/A), Removal Ventral(N/A), Removal Ventral(N/A), Removal Foreign Body(N/A) Foreign Body(N/A) Foreign Body(N/A) Last Modified By: eHnok PALENCIA , Amrita Whiting RN , Amrita Gibbons RN 09/23/20 07:23:04 09/23/20 07:23:04 09/23/20 07:23:04 [facility] OR Dressing/Packing Entry 1 Entry 2 Dressing Dressing/Packing SPONGE GAUZE 4X4 2PK DRESSING MEDPORE Type [id number] 3.6X12IN 109265 Dressing/Packing Site Tape Medipore Tape 4 in Dressing/Packing Comment Last Modified By: Carol Cosby RN, RN, Dawn M 09/22/20 13:09:34 09/22/20 13:09:34 [facility] OR Temperature Regulation Entry 1 Unit ID [id number] Site UPPER BODY Warm blankets, Warm fluids, Increased Room Temp Last Modified By: Carol Cosby RN 09/22/20 08:43:55 [facility] OR Final Count Entry 1 Sponges Correct Yes Sharps/Miscellaneous Yes Correct Instruments Correct n/a Count Performed with Brian RN , Franklyn Ta RN Performing Count Carol Cosby RN Surgeon Notified of Yes Count X-ray Taken No Procedure Repair Hernia Ventral(N/A), Removal Foreign Body(N/A) Last Modified By: Amrita Whiting RN 09/23/20 07:23:05 [facility] OR PNDS Risk of Impaired Skin Entry 1 Interventions/Activi Identifies physical OUTCOME STATEMENTS: The patient is free ties: alterations that may from visible signs and affect symptoms of injury procedure-specific related to positioning, positioning., Positions immobilization, the patient., pressure and/or Implements protective shearing forces. measures to prevent skin or tissue injury due to thermal, chemical, or mechanical sources., Uses supplies and equipment within safe parameters., Evaluates for signs and symptoms of injury as a result of positioning, immobilization, pressure and/or shearing forces. Last Modified By: Carol Cosby RN 09/22/20 08:29:59 [facility] OR PNDS Risk of Infection Entry 1 INTERVENTIONS/ACTIVI Implements aseptic OUTCOME STATEMENT: The patient is free of TIES: technique., Classifies signs and symptoms of surgical wound., infection at the Assesses susceptibility conclusion of the for infection., operative period. Performs skin preparations., Protects from cross-contamination., Monitors for signs and symptoms of infection., Minimizes the length of invasive procedure planning care., Administers prescribed prophylactic treatments., Initiates traffic control., Administers care to invasive device sites., Administers care to wound sites. Last Modified By: Carol Cosby RN 09/22/20 08:30:07 [facility] OR PNDS Risk of Injury Entry 1 Interventions/Activi Implements protective OUTCOME STATEMENT: The patient is free ties: measures to prevent from visible signs and injury due to symptoms of injury electrical sources., related to electrical, Implements protective mechanical, radiation measures to prevent or laser. injury due to laser sources., Implements protective measures to prevent injury due to radiation sources., Implements protective measures to prevent injury due to mechanical sources, Implements latex allergy precautions as needed, Records devices implanted during invasive procedure., Performs required counts., Evaluates for signs and symptoms of laser, electrical, mechanical and radiation injury. Last Modified By: Carol Cosby RN 09/22/20 08:30:14 [facility] Patient Debriefing Entry 1 Patient Debriefing Verify name of Skin Assessment Warm, Dry, Intact procedure(s) performed After including site/side, Sponge and needle counts are correct, N/A review specimens and how each is labeled, Discuss equipment, instrument problems reported and case improvements, Review sanchez concerns for further patient management Abdomen Post Soft Procedure Last Modified By: Carol Cosby RN 09/22/20 08:30:23 [facility] OR Surgical Procedures Entry 1 Entry 2 Procedure Repair Hernia Ventral Removal Foreign Body Primary Procedure Yes No Modifiers N/A N/A Procedure Wound Clean Clean Class Primary Surgeon Earle MARS , Demarcus Rubio MD , Demarcus Surgical Service General Surgery General Surgery Anesthesia Type General General Procedure Performed EXCISION OF IMPLANTED EXCISION OF IMPLANTED MESH, OPEN VENTRAL MESH INCISIONAL HERNIA REPAIR WITH MESH AND RETRORECTUS WITH TRANSVERSES ABDOMINIS RELEASE Start 09/22/20 09:15:00 09/22/20 09:15:00 Stop 09/22/20 13:10:00 09/22/20 13:10:00 Last Modified By: Amrita Whiting RN, RN, Dorothy D 09/23/20 07:23:13 09/23/20 07:22:57 General Comments: SURGICAL PROCEDURE ADDED PER OPERATIVE REPORT ROSETTA PALENCIACRABBER PERFORMED CHANGED PER OPERATIVE REPORT ROSETTA PALENCIA Case Comments Finalized By: Amrita Whiting RN Document Signatures Signed By: Carol Cosby RN 09/22/20 13:30 Amrita Whiting RN 09/23/20 07:24 Radhika Minor RN 09/22/20 14:15 Amrita Whiting RN 09/23/20 07:25 Normal [facility] Phosphorus Levelon 0 Phosphate [Moles/Vol] 3.8 mg/dL Normal 2.4-4.7 [facility] Comment on above: Performed By: #### 2 4321-2 #### [facility] [address] [place] [address] Antibody Screen Interpretati onon 09-22-2020 Interpretation and review of laboratory results Negative Normal NEGATIVE-N EGATIVE [facility] Comment on above: Performed By: #### C D:[id number] #### [facility] Blood Type ABO and Rh(D)on 11-22-2019 ABO and Rh group Nom (Bld) OPOS Normal [facility] Comment on above: Performed By: #### 6 9405-9 #### [facility] [address] [place] [place] [address] Glucose POCT (Uploaded)on Glucose [Mass/Vol] 94 mg/dL Normal 70-99 [facility] Comment on above: Result Comment: Nika tment ranges and critical values established by Patient Care Services. All follow-up actions were taken by Patient Care Services. Performed By: #### C D:[id number] #### [facility] PACU I Nursingon 09-22-2020 PACU I Nursing [facility] OR PACU I Nurs ing Record Summary Primary Physician: Demarcus Rubio MD Finalized Date/Time: 09/22/20 15:41:48 Pt. Name: VINH COLBY/Sex: 1970 Male Med Rec #: [id number] Physician: Financial #: [id number] Pt. Type: A Room/Bed: / Admit/Disch: 09/22/20 06:15:00 - Institution: [facility] OR PACU I Case Times Entry 1 In PACU I 09/22/20 13:16:00 Ready for PACU I 09/22/20 15:30:00 Discharge Discharge from PACU 09/22/20 15:38:00 PACU I Discharge Transporter unavailable I Delay Reason Last Modified By: Kwesi PALENCIA , Moreno Porter 09/22/20 15:41:40 [facility] OR PACU I Case Attendees Entry 1 Case Attendee Moreno Orosco RN Role Performed RN Last Modified By: Moreno Orosco RN 09/22/20 15:41:06 Finalized By: Moreno Orosco RN Document Signatures Signed By: Moreno Orosco RN 09/22/20 15:41 Normal [facility] PreOp Nursingon 09-22-2020 PreOp Nursing [facility] OR PreOp Nursi ng Record Summary Primary Physician: Demarcus Rubio MD Finalized Date/Time: 09/22/20 13:59:46 Pt. Name: EARNESTINE VINHBARTOLOME Darby D.O.B./Sex: 1970 Male Med Rec #: [id number] Physician: Financial #: [id number] Pt. Type: A Room/Bed: / Admit/Disch: 09/22/20 06:15:00 - Institution: [facility] OR PreOp Case Times Entry 1 PreOp Case Times In Room Time 09/22/20 06:35:00 Out Room Time 09/22/20 08:47:00 Last Modified By: Radhika Minor RN 09/22/20 13:59:40 General Comments: OUT TIME ENTERED PER IN OR ROOM TIME S LYNNE PALENCIA [facility] OR PreOp Case Attendees Entry 1 Case Attendee Alexandra Hill RN Role Performed RN Last Modified By: Alexandra Hill RN 09/22/20 07:19:06 Finalized By: Radhika Minor RN Document Signatures Signed By: Radhika Minor RN 09/22/20 13:59 [facility] Coronavirus (COVID-19/SARS-C oV-2) [facility] 09-19-2020 Device Identifier [employer] Fusion SARS- CoV-2 assay_[email or web address] 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 Normal [facility] Comment on above: Performed By: #### 2 4317-0 #### [facility] [address] [place] [address] First test N [facility] Comment on above: Performed By: #### 2 4317-0 #### [facility] [address] [place] [address] ICU N [facility] Comment on above: Performed By: #### 2 4317-0 #### [facility] [address] [place] [address] Illness or injury onset date and time N [facility] Comment on above: Performed By: #### 2 4317-0 #### [facility] [address] [place] [address] Patient was hospitalized because of this condition N [facility] Comment on above: Performed By: #### 2 4317-0 #### [facility] [address] [place] [address] status [facility] Comment on above: Performed By: #### 2 4317-0 #### [facility] [address] [place] [address] Resides in congregate care setting [facility] Comment on above: Performed By: #### 2 4317-0 #### [facility] [address] [place] [address] SARS-CoV-2 NOTDET [facility] Comment on above: Result Comment: This test was performed via the [employer] SARS-CoV-2 Assay ([employer]), a Nucleic Acid Amplification Test (NAAT), and has been authorized by the FDA under an Emergency Use Authorization (EUA). The assay is validated for nasopharyngeal (NOTEREADER), nasal, and oropharyngeal (OP) swab specimens. The Limit of Detection is 600 NDU/mL (NAAT Detectable Units/mL) which is comparable to other nucleic acid amplification tests (rt-PCR,NAAT) currently being used to test for SARS-CoV-2. Detection of SARS-CoV-2 may be affected by the sample collection, transport methods and patient factors (e.g., presence of symptoms, and/or stage of infection); therefore a negative result does not rule out the possibility of infection. For updated information, refer to the Center for Disease Control website: www.cdc.gov/coronavirus. Performed By: #### 2 4317-0 #### [facility] [address] [place] [address] Symptomatic as defined by CDC 1117 Normal [facility] Comment on above: Performed By: #### 2 4317-0 #### [facility] [address] [place] [address] Antibody Screen Interpretati onon 09-16-2020 Interpretation and review of laboratory results Negative Normal NEGATIVE-N EGATIVE [facility] Comment on above: Performed By: #### C [id number] #### [facility] Basic Metabolic Panelon 09-06 Anion gap [Moles/Vol] 4.0 mmol/L Low 6.0-18.0 [facility] Comment on above: Performed By: #### 2 4321-2 #### [facility] [address] [place] [address] Calcium [Mass/Vol] 9.3 mg/dL Normal 8.9-10.3 [facility] Comment on above: Performed By: #### 2 4321-2 #### [facility] [address] [place] [address] Chloride [Moles/Vol] 108 mmol/L High 98-107 [facility] Comment on above: Performed By: #### 2 4321-2 #### [facility] [address] [place] [address] CO2 [Moles/Vol] 26 mmol/L Normal 22-32 [facility] Comment on above: Performed By: #### 2 4321-2 #### [facility] [address] [place] [address] Creatinine [Mass/Vol] 0.99 mg/dL Normal 0.60-1.30 [facility] Comment on above: Performed By: #### 2 4321-2 #### [facility] [address] [place] [address] Glucose [Mass/Vol] 74 mg/dL Normal 70-99 [facility] Comment on above: Result Comment: U pdated ADA Reference Range A normal fasting glucose concentration is less than 100 mg/dL. An impaired fasting glucose concentration is 100-125 mg/dL. A provisional diagnosis of diabetes mellitus can be made when a fasting glucose concentration is greater than 125 mg/dL. Performed By: #### 2 4321-2 #### [facility] [address] [place] [address] Potassium [Moles/Vol] 3.7 mmol/L Normal 3.6-5.1 [facility] Comment on above: Performed By: #### 2 4321-2 #### [facility] [address] [place] [address] Sodium [Moles/Vol] 138 mmol/L Normal 136-145 [facility] Comment on above: Performed By: #### 2 4321-2 #### [facility] [address] [facility] [place] [address] Urea nitrogen (BldV) [Mass/Vol] 15 mg/dL Normal 8-20 [facility] Comment on above: Performed By: #### 2 4321-2 #### [facility] [address] [place] [address] Blood Type ABO and Rh(D)on 11-16-2019 ABO and Rh group Nom (Bld) OPOS Normal [facility] Comment on above: Performed By: #### 8 82-1 #### [facility] [address] [place] CBCon 09-16-2020 Erythrocyte distribution width (RBC) [Entitic vol] 12.9 % Normal 11.0-14.8 [facility] Comment on above: Performed By: #### C [id number] #### [facility] Hematocrit (Bld) [Volume fraction] 47.9 % Normal 39.0-49.0 [facility] Comment on above: Performed By: #### C [id number] #### [facility] Hemoglobin (Bld) [Mass/Vol] 16.7 g/dL Normal 13.5-17.5 [facility] Comment on above: Performed By: #### C [id number] #### [facility] MCH (RBC) [Entitic mass] 30.7 Picograms Normal 27.0-34.0 [facility] Comment on above: Performed By: #### C [id number] #### [facility] MCHC (RBC) [Mass/Vol] 34.9 g/dL Normal 32.0-36.0 [facility] Comment on above: Performed By: #### C [id number] #### [facility] MCV (RBC) [Entitic vol] 88.1 fL Normal 80.0-97.0 [facility] Comment on above: Performed By: #### C [id number] #### [facility] Platelet mean volume (Bld) [Entitic vol] 9.5 fL Normal 6.2-12.1 [facility] Comment on above: Performed By: #### C [id number] #### [facility] Platelets (Bld) [#/Vol] 246 thou/mcL Normal 142-424 [facility] Comment on above: Performed By: #### C [id number] #### [facility] RBC (Bld) [#/Vol] 5.44 million/mcL Normal 4.30-5.70 [facility] Comment on above: Performed By: #### C [id number] #### [facility] WBC (Bld) [#/Vol] 7.3 thou/mcL Normal 4.6-10.2 [facility] Comment on above: Performed By: #### C [id number] #### [facility] GFRaaon 09-16-2020 GFR/1.73 sq M predicted among blacks MDRD (S/P/Bld) [Vol rate/Area] mL/min/{1.73_m2} Normal [facility] Comment on above: Result Comment: The MDRD equation has not been validated for those over 70 years, women, patients with serious co-morbid conditions, or with extremes of body size, muscle mass of nutritional status. Performed By: #### 6 9405-9 #### [facility] [address] [place] [address] GFRbbon 09-16-2020 GFR/1.73 sq M predicted among non-blacks MDRD (S/P/Bld) [Vol rate/Area] mL/min/{1.73_m2} Normal [facility] Comment on above: Performed By: #### C [id number] #### [facility] CT Abd and Pelvis w Contrast on 01-10-2020 CT Abd and Pelvis w Contrast EXAMINATION TYPE: CT Abd and Pelvis w Contrast DATE OF EXAM ORDERED: 01/10/2020 12:35 PM HISTORY: Abdominal pain and hernia in the region of prior hernia repair. History of testicular cancer. Hernia repair in 2005 COMPARISON: NONE FINDINGS: No prior exams available for comparison. Lung bases are clear. No pericardial or pleural effusion. GE junction is normal. Diaphragms are intact. Multiple surgical clips are noted in the aorticocaval space of the retroperitoneum consistent with prior extensive retroperitoneal lymph node dissection. No retroperitoneal mass or lymphadenopathy. No soft tissue encasement of the aorta or IVC. Fatty filtration of the liver. No liver mass or evidence of cirrhosis. The portal veins and hepatic veins are patent. No biliary dilatation. Distended gallbladder. Normal pancreas. No mass or adenopathy in the katie hepatis. Normal spleen. Splenic vein is patent. Adrenal glands are normal. Parapelvic cysts in both kidneys. No solid renal mass or hydronephrosis. Thinning of the cortex in the inferior pole of the right kidney consistent with renal scarring. No perirenal collection. The renal veins are patent. Abdominal aorta and IVC are normal in caliber. No abdominal aortic aneurysm. Postsurgical changes of the ventral midline abdominal wall hernia repair. Diastases of the rectus abdominous muscles with eventration of the ventral abdominal wall. No abdominal wall abscess or inflammatory changes around the mesh material. No rectus sheath hematoma. Right para midline hernia defect between the margin of the mesh repair and rectus abdominis muscle. The neck of the hernia is 7.1 x 4.2 cm point cm wide and best seen on axial image 42 series 2 and sagittal image 32 series 5. Opacified nonobstructed segment of small bowel in the hernia sac. Left para midline fat-containing hernia along the inferior margin of the left mesh and rectus abdominis muscle. The neck of the hernia is 3.0 x 2.1 cm wide. No incarcerated bowel within the hernia sac. No bowel obstruction. Anterograde opacification of the colon. No inflammatory bowel wall thickening or enteric strictures. Terminal ileum is normal. Normal appendix in the right lower quadrant. No diverticulitis or colitis. No pneumatosis intestinalis. No free air, ascites or intra-abdominal abscess. No mesenteric mass. Osseous structures are normal. Pelvis: Bladder prostate and rectum are normal. No free fluid or abscess in the pelvis. Pelvic phlebolith. Small fat-containing bilateral inguinal hernias. No incarcerated bowel. IMPRESSION: Diastases of the rectus abdominis muscles in the region of prior ventral hernia repair. Bilateral para midline hernia defects between the margins of the mesh repair and rectus abdominis muscles. The larger right para midline hernia contains segment of unobstructed small bowel. Smaller fat-containing left para midline hernia. Small fat-containing bilateral inguinal hernias. Postsurgical changes of retroperitoneal lymph node dissection. Fatty infiltration of the liver. Parapelvic cysts in both kidneys. Normal appendix. [place] thanks you for the opportunity to care for your patient. Workstation ID: [id number] FINAL REPORT Dictated By: Nuno Cruz MD 01/10/2020 12:54 Assigned Physician: Nuno Cruz MD Reviewed and Electronically Signed By: Nuno Cruz MD 01/10/2020 13:06 Transcribed by: TUSHAR 01/10/2020 12:54 Technologist: TQN Normal [facility] Creatinine POCT [facility] 0 Creatinine [Mass/Vol] 1.2 mg/dL Normal 0.6-1.3 [facility] Comment on above: Performed By: #### C [id number] #### [facility] CT SINUS STEALTH WITHOUT CON TRASTon 08-16-2019 CT SINUS STEALTH WITHOUT CONTRAST EXAMINATION: CT SINUS STEALTH WITHOUT CONTRAST HISTORY: Chronic recurrent sinusitis/ severe right septal deviation with obstruction of [facility] COMPARISON: None. TECHNIQUE: Axial CT of the sinuses was performed without contrast with sagittal and coronal reformations. Dose reduction techniques were achieved by using automated exposure control and/or adjustment of mA and/or kV according to patient size and/or use of iterative reconstruction technique. FINDINGS: The sinuses are generally well developed and preserved. No major opacity or air-fluid leveling is seen. Prominent chronic mucoperiosteal thickening is not apparent. The ostiomeatal complex infundibulum appears patent bilaterally. There is prominent nasal septal deviation with a right nasal spur. There is mild left inferior nasal turbinate engorgement. No prominent nasal canal soft tissue mass is seen. No osseous erosion or destructive pattern is apparent. Temporomandibular joints are seen and appear satisfactory. IMPRESSION: No acute sinus opacity or advanced mucoperiosteal thickening. Prominent nasal septal deviation with right nasal spur is apparent. Left inferior nasal turbinate engorgement is noted. No osseous erosion or destructive pattern is apparent. [employer] Workstation ID: [id number] Dictated by: EARLENE YI on MonAug 16, 2019 3:41:09 PM EDT Transcribed by: ANISA GOINS on MonAug 16, 2019 3:51:02 PM EDT Finalized by: EARLENE YI on MonAug 16, 2019 4:15:32 PM EDT [facility] Comment on above: Order Comment: Injur y/Trauma or Illness?:Illness/Other How long have you had these symptoms (acute/chronic)?:Chronic Reason for exam?:chronic sinusitis with deviated septum Type of Exam?:Initial Additional signs and symptoms?:na CT Sinus Stealth Without Con traston 08-16-2019 No acute sinus opaci ty or advanced mucoperiosteal thickening. Prominent nasal septal deviation with right nasal spur is apparent. Left inferior nasal turbinate engorgement is noted. No osseous erosion or destructive pattern is apparent. [employer] - [employer] Workstation ID: [id number] [facility] EXAMINATION: CT SINU S STEALTH WITHOUT CONTRAST HISTORY: Chronic recurrent sinusitis/ severe right septal deviation with obstruction of [facility] COMPARISON: None. TECHNIQUE: Axial CT of the sinuses was performed without contrast with sagittal and coronal reformations. Dose reduction techniques were achieved by using automated exposure control and/or adjustment of mA and/or kV according to patient size and/or use of iterative reconstruction technique. FINDINGS: The sinuses are generally well developed and preserved. No major opacity or air-fluid leveling is seen. Prominent chronic mucoperiosteal thickening is not apparent. The ostiomeatal complex infundibulum appears patent bilaterally. There is prominent nasal septal deviation with a right nasal spur. There is mild left inferior nasal turbinate engorgement. No prominent nasal canal soft tissue mass is seen. No osseous erosion or destructive pattern is apparent. Temporomandibular joints are seen and appear satisfactory. [facility] Interface, Rad In Fu ji Speechq - 08/16/2019 4:18 PM EDT EXAMINATION: CT SINUS STEALTH WITHOUT CONTRAST HISTORY: Chronic recurrent sinusitis/ severe right septal deviation with obstruction of [facility] COMPARISON: None. TECHNIQUE: Axial CT of the sinuses was performed without contrast with sagittal and coronal reformations. Dose reduction techniques were achieved by using automated exposure control and/or adjustment of mA and/or kV according to patient size and/or use of iterative reconstruction technique. FINDINGS: The sinuses are generally well developed and preserved. No major opacity or air-fluid leveling is seen. Prominent chronic mucoperiosteal thickening is not apparent. The ostiomeatal complex infundibulum appears patent bilaterally. There is prominent nasal septal deviation with a right nasal spur. There is mild left inferior nasal turbinate engorgement. No prominent nasal canal soft tissue mass is seen. No osseous erosion or destructive pattern is apparent. Temporomandibular joints are seen and appear satisfactory. IMPRESSION: No acute sinus opacity or advanced mucoperiosteal thickening. Prominent nasal septal deviation with right nasal spur is apparent. Left inferior nasal turbinate engorgement is noted. No osseous erosion or destructive pattern is apparent. [employer] Workstation ID: [id number] [facility] POC Urinalysis Dipstickon Bilirubin Ql (U) Negative Negative [facility] th Glucose Ql (U) Negative Normal, Negative mg/dL [facility] Hemoglobin Ql (U) Negative Negative [facility] Interpretation and review of laboratory results Normal [facility] Ketones Ql (U) Negative Negative mg/dL [facility] Leukocyte esterase Test strip Ql (U) Negative Negative [facility] Nitrite Ql (U) Negative Negative [facility] pH (U) 5.5 [pH] [facility] Protein Ql (U) Negative Negative mg/dL [facility] Specific gravity (U) [Rel density] 1.020 [facility] Urobilinogen Qn (U) <2.0 <2.0, 0. 2, Normal, Negative, 1.0, 2.0, <1.0 mg/dL [facility] BMPon 10-27-2018 Anion gap 3 molar conc 15 mmol/L Invalid Interpretation Code 10 - 20 mmol/L LAB Calcium mass conc 9.0 mg/dL Invalid Interpretation Code 8.4 - 10.2 mg/dL LAB Chloride molar conc 99 mmol/L Invalid Interpretation Code 98 - 108 mmol/L LAB Creatinine mass conc 1.20 mg/dL Invalid Interpretation Code 0.5 - 1.3 mg/dL LAB GFR/1.73 sq M predicted among non-blacks MDRD vol rate/area (S/P/Bld) The eGFR should be used for monitoring renal function only and not for medication dosing. Invalid Interpretation Code LAB GFR/1.73 sq M.predicted CKD-EPI vol rate/area (S/P/Bld) 82 Invalid Interpretation Code >=60 mL/min/1.7 3 m2 LAB Glucose mass conc 168 mg/dL High 65 - 99 mg/dL LAB HCO3 molar conc 28 mmol/L Invalid Interpretation Code 21 - 32 mmol/L LAB Interpretation and review of laboratory results Abnormal Invalid Interpretation Code LAB Potassium molar conc 4.5 mmol/L Invalid Interpretation Code 3.5 - 5.1 mmol/L LAB Sodium molar conc 137 mmol/L Invalid Interpretation Code 135 - 145 mmol/L LAB Urea nitrogen mass conc 11 mg/dL Invalid Interpretation Code 8 - 25 mg/dL LAB Urea nitrogen/Creatinine mass ratio 9.2 mg/mg Low LAB CBC WITH AUTO DIFFERENTIALon 10-27-2018 Basophils Auto #/vol (Bld) 0.09 10*3/uL Invalid Interpretation Code LAB Basophils/100 WBC Auto (Bld) 0.8 % Invalid Interpretation Code LAB Eosinophils Auto #/vol (Bld) 0.21 10*3/uL Invalid Interpretation Code LAB Eosinophils/100 WBC Auto (Bld) 1.9 % Invalid Interpretation Code LAB Erythrocyte distribution width Auto Entitic volume (RBC) 13.6 % Invalid Interpretation Code 11.6 - 14.8 % LAB Hematocrit Auto Volume Fraction (Bld) 53.2 % High 41 - 53 % LAB Hemoglobin mass conc (Bld) 17.9 g/dL High 13.5 - 17.5 g/dL LAB Immature granulocytes #/vol (Bld) 0.05 10*3/uL Invalid Interpretation Code LAB Immature granulocytes/100 WBC (Bld) 0.40 % Invalid Interpretation Code LAB Comment on above: The IG parameter is the percentage of metamyelocytes, myelocytes, and promyelocytes. Interpretation and review of laboratory results Abnormal Invalid Interpretation Code LAB Lymphocytes Auto #/vol (Bld) 2.45 10*3/uL Invalid Interpretation Code LAB Lymphocytes/100 WBC Auto (Bld) 21.6 % Invalid Interpretation Code LAB MCH Auto Entitic mass (RBC) 29.7 pg Invalid Interpretation Code 26 - 34 pg LAB MCHC Auto mass conc (RBC) 33.6 g/dL Invalid Interpretation Code 31 - 37 g/dL LAB MCV Auto Entitic volume (RBC) 88.4 fL Invalid Interpretation Code 80 - 100 fL LAB Monocytes Auto #/vol (Bld) 0.97 10*3/uL High LAB Monocytes/100 WBC Auto (Bld) 8.6 % Invalid Interpretation Code LAB Neutrophils Auto #/vol (Bld) 7.56 10*3/uL High LAB Neutrophils/100 WBC Auto (Bld) 66.7 % Invalid Interpretation Code LAB Nucleated RBC #/vol (Bld) 0.00 10*3/uL Invalid Interpretation Code LAB Nucleated RBC/100 WBC Ratio (Bld) 0.0 % Invalid Interpretation Code LAB Platelet mean volume Auto Entitic volume (Bld) 9.9 fL Invalid Interpretation Code 9 - 15.5 fL LAB Platelets Auto #/vol (Bld) 274 10*3/uL Invalid Interpretation Code LAB RBC Auto #/vol (Bld) 6.02 10*6/uL High LAB WBC Auto #/vol (Bld) 11.33 10*3/uL High D H LAB CT KIDNEY STONEon 10-27-2018 Interface, Rad In ji Speechq - 10/27/2018 6:41 PM EST EXAMINATION: CT KIDNEY STONE HISTORY: ORDERING SYSTEM PROVIDED HISTORY: Abdominal pain, TECHNOLOGIST PROVIDED HISTORY: Reason for exam: left side flank pain since yesterday with hx of kidney stones Illness/Other Encounter Type: Initial Additional signs and symptoms: NA ORDERING SYSTEM PROVIDED DIAGNOSIS CODES: COMPARISON: CT of 06/28/2007. TECHNIQUE: Dose reduction techniques were achieved by using automated exposure control and/or adjustment of mA and/or kV according to patient size and/or use of iterative reconstruction technique. 2.5 mm axial unenhanced images of the abdomen and pelvis were performed. There are coronal and sagittal reformations. They were reviewed in several different windows. CONTRAST: None. FINDINGS: No specific abnormality of the enhanced liver, spleen, or pancreas is seen. The gallbladder shows no calcifications or inflammation. Adrenal glands are normal. The right kidney shows no evidence of hydronephrosis or solid or cystic mass. No calcifications are seen. No definite right ureteral abnormality is seen. The left kidney has a small punctate 2 mm calcification in the midpole. The kidney is otherwise satisfactory. I do not see any major hydronephrosis or additional renal or ureteral calcifications. 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 There has also been a ventral hernia repair. There are still ventral hernias present along the right and left lateral aspect of the hernia repair. These are similar to the exam of 2007. On the left the hernia is largely containing mesenteric fat. On the right multiple small-bowel loops are seen without signs of obstruction. Bilateral fat-containing inguinal hernias are seen. I do not see any acute-appearing pathology in the pelvis. The bladder is somewhat contracted. Prostate is unremarkable. There is no adenopathy. I do not see any evidence of pathological bowel pattern or obstruction. The appendix is normal. IMPRESSION: 1. There is a small punctate nonobstructive [...] Normal appendix and unremarkable abdominal gas pattern. [facility] Workstation ID: [id number] Invalid Interpretation Code [facility] EX[facility]: CT KIDN EY STONE HISTORY: ORDERING SYSTEM PROVIDED HISTORY: Abdominal pain, TECHNOLOGIST PROVIDED HISTORY: Reason for exam: left side flank pain since yesterday with hx of kidney stones Illness/Other Encounter Type: Initial Additional signs and symptoms: NA ORDERING SYSTEM PROVIDED DIAGNOSIS CODES: COMPARISON: CT of 06/28/2007. TECHNIQUE: Dose reduction techniques were achieved by using automated exposure control and/or adjustment of mA and/or kV according to patient size and/or use of iterative reconstruction technique. 2.5 mm axial unenhanced images of the abdomen and pelvis were performed. There are coronal and sagittal reformations. They were reviewed in several different windows. CONTRAST: None. FINDINGS: No specific abnormality of the enhanced liver, spleen, or pancreas is seen. The gallbladder shows no calcifications or inflammation. Adrenal glands are normal. The right kidney shows no evidence of hydronephrosis or solid or cystic mass. No calcifications are seen. No definite right ureteral abnormality is seen. The left kidney has a small punctate 2 mm calcification in the midpole. The kidney is otherwise satisfactory. I do not see any major hydronephrosis or additional renal or ureteral calcifications. 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 There has also been a ventral hernia repair. There are still ventral hernias present along the right and left lateral aspect of the hernia repair. These are similar to the exam of 2007. On the left the hernia is largely containing mesenteric fat. On the right multiple small-bowel loops are seen without signs of obstruction. Bilateral fat-containing inguinal hernias are seen. I do not see any acute-appearing pathology in the pelvis. The bladder is somewhat contracted. Prostate is unremarkable. There is no adenopathy. I do not see any evidence of pathological bowel pattern or obstruction. The appendix is normal. Invalid Interpretation Code [employer] 1. There is a small punctate nonobstructive [...] Normal appendix and unremarkable abdominal gas pattern. [facility]/[employer] Workstation ID: [id number] Invalid Interpretation Code [employer] ECG 12-LEADon 10-27-2018 Wilner Farah 10/27/2018 11:07 PM EKG 12-lead Date/Time: 10/27/2018 11:07 PM Performed by: CHETAN JUAREZ Authorized by: LESLIE CHUNG Interpreted by ED attending physician Comparison: compared with previous ECG from 10/25/2006 Similar to previous ECG Rhythm: sinus rhythm BPM: 88 Conduction: conduction normal ST Segments: ST segments normal Clinical impression: non-specific ECG Invalid Interpretation Code MUSE Hepatic Function Panel (LFT) on 10-27-2018 Albumin mass conc 3.9 g/dL Invalid Interpretation Code 3.2 - 5.2 g/dL LAB ALP enzyme act/vol 70 U/L Invalid Interpretation Code 40 - 150 U/L LAB ALT enzyme act/vol 35 U/L Invalid Interpretation Code 0 - 40 U/L LAB AST enzyme act/vol 30 U/L Invalid Interpretation Code 0 - 45 U/L LAB Bilirubin mass conc 1.0 mg/dL Invalid Interpretation Code 0 - 1.3 mg/dL LAB Bilirubin.conjugated mass conc 0.2 mg/dL Invalid Interpretation Code 0 - 0.4 mg/dL LAB Protein mass conc 7.2 g/dL Invalid Interpretation Code 6 - 8 g/dL LAB Lipaseon 10-27-2018 Lipase enzyme act/vol 19 U/L Invalid Interpretation Code 15 - 65 U/L LAB Otheron 10-27-2018 Interpretation and review of laboratory results Normal Invalid Interpretation Code LAB Extra Tube Hold for add-ons. Invalid Interpretation Code LAB Comment on above: Auto resulted. PT/INRon 10-27-2018 INR Coag RelTime (Bld) During the induct ion phase of oral anticoagulation, the INR may not reflect the anticoagulation status of the patient. Therapeutic ranges for INR's are: Most clinical situations: INR 2.0-3.0 Mechanical Prosthetic Valve: INR 2.5-3.5 Critical: INR >5.0 Invalid Interpretation Code LAB INR Coag RelTime (PPP) 1.0 {INR} Invalid Interpretation Code LAB Interpretation and review of laboratory results Normal Invalid Interpretation Code LAB Prothrombin time (PT) Coag time (PPP) 13.1 s Invalid Interpretation Code LAB TROPONINon 10-27-2018 Troponin T.cardiac mass conc ug/L Invalid Interpretation Code <0.040 ng/mL LAB URINALYSISon 10-27-2018 Bacteria Auto Ql (U) None Seen Invalid Interpretation Code None Seen /hpf LAB Bilirubin Ql (U) Negative Invalid Interpretation Code Negative LAB Clarity Refractometry automated Nom (U) Clear Invalid Interpretation Code Clear LAB Color Auto Nom (U) Yellow Invalid Interpretation Code Colorless, Yellow LAB Epithelial cells.squamous Auto #/area (Urine sed) <1 Invalid Interpretation Code LAB Glucose Automated test strip mass conc (U) 50 Abnormal Negative mg/dL LAB Hemoglobin Automated test strip Ql (U) Negative Invalid Interpretation Code Negative LAB Hyaline casts Auto #/area (Urine sed) 0-2 Invalid Interpretation Code 0 - 2 /lpf LAB Interpretation and review of laboratory results Abnormal Invalid Interpretation Code DH LAB Ketones mass conc (U) Negative Invalid Interpretation Code Negative mg/dL LAB Leukocyte esterase Automated test strip Ql (U) Negative Invalid Interpretation Code Negative LAB Mucus Auto #/area (Urine sed) Rare Invalid Interpretation Code None Seen, Rare /lpf LAB Nitrite Automated test strip Ql (U) Negative Invalid Interpretation Code Negative LAB pH Test strip (U) 5.0 [pH] Invalid Interpretation Code LAB Protein mass conc (U) 30 Abnormal Negati ve mg/dL LAB Comment on above: False positive resul ts may occur in urines with large amounts of hemoglobin, pH greater than 8.0, contrast medium, or disinfectants including ammonium compounds. Specific gravity Automated test strip Relative Density (U) 1.024 Invalid Interpretation Code LAB Urobilinogen Test strip Qn (U) <2.0 Invalid Interpretation Code <2.0 mg/dL LAB Microscopic examinat ion is performed on all urinalysis samples and only positive findings are reported. The test for blood on the chemical analytic portion of urinalysis may also be positive due to hemoglobinuria and myoglobinuria and if red blood cells are present they are quantified by microscopic examination. Invalid Interpretation Code LAB CBC and Differentialon 12-15 Creatinine The following orders were created for panel order CBC and Differential. Procedure Abnormality Status --------- ------ CBC Auto Differential[[id number]] Normal Final result Please view results for these tests on the individual orders. Invalid Interpretation Code [facility] Work Phone: POC Influenza A/Bon 11-13-19 18 Interpretation and review of laboratory results Abnormal Invalid Interpretation Code [facility] Work Phone: Rapid Influenza A/B Ag Positive Abnormal Negative [facility] Work Phone: Vital Signs Date Time Vital Sign Value Performing Clinician Jhoana gann 01-10-2020 08:30-0500 BMI (Body Mass Index) 35.45 kg/m2 [facility] 01-10-2020 08:30-0500 Body Temperature 99.19 [degF] [facility] 01-10-2020 08:30-0500 Body weight 96.62 kg [facility] 01-10-2020 08:30-0500 BP Diastolic 78 mm[Hg] [facility] 01-10-2020 08:30-0500 BP Systolic 116 mm[Hg] [facility] 01-10-2020 08:30-0500 Height 165.1 cm [facility] 01-10-2020 08:30-0500 Pulse (Heart Rate) 66 /min [facility] 01-10-2020 08:30-0500 Pulse Oximetry 98 % [facility] 12-11-2019 16:08-0500 Body Temperature 97.9 [degF] Earlene Cowan [facility] 12-11-2019 16:08-0500 BP Diastolic 81 mm[Hg] Earlene Harrisonjack [facility] 12-11-2019 16:08-0500 BP Systolic 133 mm[Hg] [facility] 12-11-2019 16:08-0500 Pulse (Heart Rate) 80 /min [facility] 12-11-2019 16:08-0500 Pulse Oximetry 99 % Earlene Hunterjack [facility] 12-11-2019 16:08-0500 Respiratory Rate 14 /min Earlene Goldbergnazaninjack [facility] 10-11-2019 08:05-0500 Body Temperature 98.49 [degF] Earlene Rossalidajack [facility] 10-11-2019 08:05-0500 Pulse (Heart Rate) 85 /min [facility] 10-11-2019 08:05-0500 Pulse Oximetry 93 % Earlene Cowan [facility] 08-16-2019 08:29-0400 BMI (Body Mass Index) 35.28 kg/m2 [facility] 08-16-2019 08:29-0400 Body Temperature 98.2 [degF] [facility] 08-16-2019 08:29-0400 Body weight 96.16 kg [facility] 08-16-2019 08:29-0400 BP Diastolic 82 mm[Hg] [facility] 08-16-2019 08:29-0400 BP Systolic 126 mm[Hg] [facility] 08-16-2019 08:29-0400 Height 165.1 cm [facility] 08-16-2019 08:29-0400 Pulse (Heart Rate) 80 /min [facility] 08-16-2019 08:29-0400 Pulse Oximetry 96 % [facility] 07-19-2019 08:51-0400 BP Diastolic 72 mm[Hg] [facility] 07-19-2019 08:51-0400 BP Systolic 120 mm[Hg] [facility] 07-19-2019 08:29-0400 BMI (Body Mass Index) 35.28 kg/m2 [facility] 07-19-2019 08:29-0400 Body Temperature 98.2 [degF] [facility] 07-19-2019 08:29-0400 Body weight 96.16 kg [facility] 07-19-2019 08:29-0400 Height 165.1 cm [facility] 07-19-2019 08:29-0400 Pulse (Heart Rate) 77 /min [facility] 07-19-2019 08:29-0400 Pulse Oximetry 96 % [facility] 04-05-2019 10:33-0400 BMI (Body Mass Index) 35.61 kg/m2 [facility] 04-05-2019 10:33-0400 Body Temperature 98.4 [degF] [facility] 04-05-2019 10:33-0400 BP Diastolic 79 mm[Hg] [facility] 04-05-2019 10:33-0400 BP Systolic 117 mm[Hg] Kailyn Looney [facility] 04-05-2019 10:33-0400 Height 165.1 cm [facility] 04-05-2019 10:33-0400 Pulse (Heart Rate) 87 /min Kailyn Looney [facility] 04-05-2019 10:33-0400 Pulse Oximetry 95 % [facility] 04-05-2019 10:33-0400 Weight 97.07 kg [facility] 03-15-2019 12:03-0400 BP Diastolic 94 mm[Hg] [facility] 03-15-2019 12:03-0400 BP Systolic 142 mm[Hg] [facility] 03-15-2019 11:01-0400 BMI (Body Mass Index) 35.61 kg/m2 [facility] 03-15-2019 11:01-0400 Body Temperature 98.29 [degF] [facility] 03-15-2019 11:01-0400 Height 165.1 cm [facility] 03-15-2019 11:01-0400 Pulse (Heart Rate) 77 /min [facility] 03-15-2019 11:01-0400 Pulse Oximetry 98 % [facility] 03-15-2019 11:01-0400 Weight 97.07 kg [facility] 01-11-2019 07:59-0500 BMI (Body Mass Index) 35.11 kg/m2 [facility] 01-11-2019 07:59-0500 Body Temperature 97.59 [degF] [facility] 01-11-2019 07:59-0500 BP Diastolic 100 mm[Hg] [facility] 01-11-2019 07:59-0500 BP Systolic 154 mm[Hg] [facility] 01-11-2019 07:59-0500 Height 165.1 cm [facility] 01-11-2019 07:59-0500 Pulse (Heart Rate) 84 /min [facility] 01-11-2019 07:59-0500 Pulse Oximetry 98 % [facility] 01-11-2019 07:59-0500 Weight 95.71 kg Kailyn Looney [facility] 12-14-2018 10:59-0500 BMI (Body Mass Index) 35.78 kg/m2 Kailyn Looney [facility] 12-14-2018 10:59-0500 Body Temperature 97.59 [degF] Kailyn Looney [facility] 12-14-2018 10:59-0500 BP Diastolic 100 mm[Hg] Kailyn Looney [facility] 12-14-2018 10:59-0500 BP Systolic 144 mm[Hg] Kailyn Looney [facility] 12-14-2018 10:59-0500 Height 165.1 cm Kailyn Looney [facility] 12-14-2018 10:59-0500 Pulse (Heart Rate) 67 /min Kailyn Looney [facility] 12-14-2018 10:59-0500 Pulse Oximetry 98 % Kailyn Looney [facility] 12-14-2018 10:59-0500 Weight 97.52 kg [facility] 11-02-2018 11:42-0500 BMI (Body Mass Index) 35.61 kg/m2 [facility] 11-02-2018 11:42-0500 Body Temperature 99.19 [degF] [facility] 11-02-2018 11:42-0500 BP Diastolic 100 mm[Hg] [facility] 11-02-2018 11:42-0500 BP Systolic 140 mm[Hg] [facility] 11-02-2018 11:42-0500 Height 165.1 cm [facility] 11-02-2018 11:42-0500 Pulse (Heart Rate) 80 /min [facility] 11-02-2018 11:42-0500 Pulse Oximetry 98 % [facility] 11-02-2018 11:42-0500 Weight 97.07 kg [facility] 10-28-2018 02:30-0500 BP Diastolic 90 mm[Hg] Chetan Juarez [facility] 10-28-2018 02:30-0500 BP Systolic 166 mm[Hg] Chetan Juarez [facility] 10-28-2018 02:30-0500 Pulse (Heart Rate) 83 /min Chetan Juarez [facility] 10-28-2018 02:30-0500 Pulse Oximetry 97 % [facility] 10-28-2018 02:30-0500 Respiratory Rate 14 /min [facility]tan [facility] 10-27-2018 22:34-0500 BMI (Body Mass Index) 34.45 kg/m2 [facility] 10-27-2018 22:34-0500 Body Temperature 99.3 [degF] Chetan [facility] 10-27-2018 22:34-0500 Height 165.1 cm Chetan [facility] 10-27-2018 22:34-[address] [facility] 10-27-2018 18:00-0500 BP Diastolic 99 mm[Hg] Leslie [facility] 10-27-2018 18:00-0500 BP Systolic 171 mm[Hg] [facility] 10-27-2018 18:00-0500 Pulse (Heart Rate) 77 /min [facility] 10-27-2018 18:00-0500 Pulse Oximetry 93 % [facility] 10-27-2018 17:30-0500 Respiratory Rate 16 /min [facility] 10-27-2018 15:56-0500 BMI (Body Mass Index) 35.53 kg/m2 [facility] 10-27-2018 15:56-0500 Body Temperature 98.01 [degF] [facility] 10-27-2018 15:56-0500 Height 162.6 cm [facility] 10-27-2018 15:56-0500 Weight 93.89 kg [facility] 08-31-2018 10:36-0400 BMI (Body Mass Index) 35.01 kg/m2 Kailyn Looney [facility] 08-31-2018 10:36-0400 Body Temperature 98.71 [degF] Kailyn Looney [facility] 08-31-2018 10:36-0400 BP Diastolic 88 mm[Hg] Kailyn Looney [facility] 08-31-2018 10:36-0400 BP Systolic 144 mm[Hg] Kailyn Looney [facility] 08-31-2018 10:36-0400 Height 165.1 cm Kailyn Looney [facility] 08-31-2018 10:36-0400 Pulse (Heart Rate) 81 /min Kailyn Looney [facility] 08-31-2018 10:36-0400 Pulse Oximetry 94 % Kailyn Looney [facility] 08-31-2018 10:36-0400 Weight 95.44 kg Kailyn Looney [facility] 05-25-2018 09:03-0400 BMI (Body Mass Index) 36.44 kg/m2 Kailyn Looney [facility] 05-25-2018 09:03-0400 Body Temperature 98.91 [degF] Kailyn Looney [facility] 05-25-2018 09:03-0400 BP Diastolic 80 mm[Hg] Kailyn Looney [facility] 05-25-2018 09:03-0400 BP Systolic 128 mm[Hg] Kailyn Looney [facility] 05-25-2018 09:03-0400 Height 165.1 cm [facility] 05-25-2018 09:03-0400 Pulse (Heart Rate) 71 /min Kailyn Looney [facility] 05-25-2018 09:03-0400 Pulse Oximetry 98 % Kailyn Looney [facility] 05-25-2018 09:03-0400 Weight 99.34 kg Kailyn Looney [facility] 12-15-2017 09:18-0500 BMI (Body Mass Index) 34.45 kg/m2 Kailyn Looney [facility] Work Phone: 12-15-2017 09:18-0500 Body Temperature 98.01 [degF] Kailyn Looney [facility] Work Phone: 12-15-2017 09:18-0500 BP Diastolic 86 mm[Hg] Kailyn Looney [facility] Work Phone: 12-15-2017 09:18-0500 BP Systolic 124 mm[Hg] Kailyn Looney [facility] Work Phone: 12-15-2017 09:18-0500 Height 165.1 cm Kailyn Looney [facility] Work Phone: 12-15-2017 09:18-0500 Pulse (Heart Rate) 71 /min Kailyn Looney [facility] Work Phone: 12-15-2017 09:18-0500 Pulse Oximetry 98 % Kailyn Villanueva Work Phone: 12-15-2017 09:18-0500 Weight 93.89 kg [facility]: 11-13-2017 12:57-0500 BMI (Body Mass Index) 34.28 kg/m2 [facility] Work Phone: 11-13-2017 12:57-0500 Body Temperature 99.19 [degF] [facility] Work Phone: 11-13-2017 12:57-0500 BP Diastolic 80 mm[Hg] [facility] Work Phone: 11-13-2017 12:57-0500 BP Systolic 122 mm[Hg] [facility] Work Phone: 11-13-2017 12:57-0500 Height 165.1 cm [facility] Work Phone: 11-13-2017 12:57-0500 Pulse (Heart Rate) 76 /min [facility] Work Phone: 11-13-2017 12:57-0500 Pulse Oximetry 98 % Kailyn Villanueva Work Phone: 11-13-2017 12:57-0500 Weight 93.44 kg [facility] Work Phone: 08-18-2017 11:10-0400 BMI (Body Mass Index) 34.28 kg/m2 [facility] Work Phone: 08-18-2017 11:10-0400 Body Temperature 98.6 [degF] [facility]yn [facility] [employer] Work Phone: 08-18-2017 11:10-0400 BP Diastolic 80 mm[Hg] [facility] Work Phone: 08-18-2017 11:10-0400 BP Systolic 124 mm[Hg] Kailyn Looney [facility] Work Phone: 08-18-2017 11:100400 Height 165.1 cm Kailyn Looney [facility] Work Phone: 08-18-2017 11:10-0400 Pulse (Heart Rate) 79 /min Kailyn Looney [facility] Work Phone: 08-18-2017 11:10-0400 Pulse Oximetry 98 % Kailyn Looney [facility] Work Phone: 08-18-2017 11:10-0400 Weight 93.44 kg Kailyn Looney [facility] Work Phone: Encounters Encounter Date Encounter Type Care Provider Facility Start: 11-28-2024 End: 11-28-2024 ambulatory [facility] Facility:[facility] Start: 08-30-2024 End: 08-30-2024 ambulatory [facility] Facility:[facility] Start: 07-04-2024 End: 07-04-2024 ambulatory [facility] Facility:[facility] Start: 05-30-2024 End: 05-30-2024 ambulatory [facility] Facility:[facility] Start: 05-17-2023 End: 05-17-2023 ambulatory [facility] Work Phone: Start: 05-17-2023 End: 05-17-2023 Patient encounter procedure [facility] Start: 12-12-2022 ambulatory [facility] Start: 05-20-2022 End: 05-20-2022 Patient encounter procedure [facility] Start: 01-19-2021 End: 01-19-2021 Orders Only Talita Jesus Work Phone: [facility] Start: 05-12-2020 End: 05-12-2020 Patient encounter procedure SANDRA GLORIA [facility] Start: 01-17-2020 Patient encounter procedure KAILYN LOONEY [facility] Start: 01-10-2020 End: 01-10-2020 Periodic preventive med est patient 40-64yrs Kailyn Alvagabbytanvi Work Phone: [facility] Comment on above: Physical exam (Prima ry Dx); Diabetes mellitus screening; Lipid screening; Prostate cancer screening Start: 01-07-2020 End: 01-07-2020 Postop follow up visit related to original px Earlene Cowan Work Phone: [facility] Comment on above: Hypertrophy of both inferior nasal turbinates (Primary Dx); Nasal obstruction without choanal atresia; History of nasal septoplasty Start: 12-31-2019 End: 12-31-2019 Postop follow up visit related to original px Earlene Cowan Work Phone: [facility] Comment on above: Hypertrophy of both inferior nasal turbinates (Primary Dx); Nasal obstruction without choanal atresia; History of nasal septoplasty; Chronic rhinitis Start: 12-24-2019 End: 12-24-2019 Postop follow up visit related to original px Earlene Cowan Work Phone: [facility] Comment on above: Hypertrophy of both inferior nasal turbinates (Primary Dx); Nasal obstruction without choanal atresia; History of nasal septoplasty Start: 12-17-2019 End: 12-17-2019 Postop follow up visit related to original px Earlene Cowan Work Phone: [facility] Comment on above: DNS (deviated nasal septum) (Primary Dx); Hypertrophy of both inferior nasal turbinates; Nasal obstruction without choanal atresia; History of nasal septoplasty Start: 12-13-2019 End: 12-13-2019 Postop follow up visit related to original px Earlene Cowan Work Phone: [facility] Comment on above: DNS (deviated nasal septum) (Primary Dx); Hypertrophy of both inferior nasal turbinates; Nasal obstruction without choanal atresia; History of nasal septoplasty Start: 12-11-2019 End: 12-11-2019 [facility] Start: 12-11-2019 End: 12-11-2019 Subsequent hospital visit by physician Earlene Cowan Work Phone: [facility] Comment on above: Acute post-operative pain (Primary Dx); Nasal obstruction without choanal atresia; Deviated septum; Injury of nose, sequela; Hypertrophy of both inferior nasal turbinates Start: 11-29-2019 End: 11-29-2019 Patient encounter procedure [facility] Start: 10-11-2019 End: 10-11-2019 Office outpatient visit 15 minutes [facility] Work Phone: [facility] Comment on above: DNS (deviated nasal septum) (Primary Dx); Hypertrophy of both inferior nasal turbinates; Nasal obstruction without choanal atresia Start: 08-23-2019 End: 08-27-2019 Patient encounter procedure KAILYN LOONEY [facility] Start: 08-16-2019 End: 08-17-2019 Patient encounter procedure [facility] Start: 08-16-2019 End: 08-16-2019 Subsequent hospital visit by physician Earlene Jo [facility] Work Phone: [facility] CT Scan Comment on above: Deviated nasal septu m; Chronic sinusitis, unspecified location Start: 08-16-2019 End: 08-16-2019 Office outpatient visit 25 minutes Kailyn Looney Work Phone: [facility] Comment on above: Erectile dysfunction , unspecified erectile dysfunction type (Primary Dx); Urinary frequency; Hypertension, essential; Hypertriglyceridemia; Androgen deficiency; Motion sickness, initial encounter Start: 07-19-2019 End: 07-19-2019 Office outpatient visit 25 minutes Kailyn Looney Work Phone: [facility] Comment on above: Hypertension, essent ial (Primary Dx); Trigger middle finger of left hand; Hypertriglyceridemia; Need for hepatitis A immunization Start: 04-05-2019 End: 04-05-2019 Office outpatient visit 10 minutes Kailyn Looney Work Phone: [facility] Comment on above: Hypertension, essent ial (Primary Dx); Erectile dysfunction, unspecified erectile dysfunction type Start: 03-15-2019 End: 03-15-2019 Office outpatient visit 15 minutes Kailyn Looney Work Phone: [facility] Comment on above: Elevated blood press ure reading with diagnosis of hypertension Start: 01-11-2019 End: 01-11-2019 Office outpatient visit 25 minutes Kailyn Looney Work Phone: [facility] Comment on above: Elevated blood press ure reading in office with diagnosis of hypertension (Primary Dx); Witnessed episode of apnea; Habitual snoring Start: 12-14-2018 End: 12-14-2018 Periodic preventive med est patient 40-64yrs Kailyn Looney Work Phone: [facility] Comment on above: Physical exam (Prima ry Dx); Diabetes mellitus screening; Prostate cancer screening; Lipid screening; Medication side effect; Hypertension, essential Start: 11-02-2018 End: 11-02-2018 Office outpatient visit 25 minutes Kailyn Looney Work Phone: [facility] Comment on above: Acute left-sided low back pain without sciatica (Primary Dx); Hypertension, essential Start: 10-27-2018 End: 10-28-2018 Emergency department patient visit Chetan Diaz Fernandoalejandra Work Phone: [facility] Emergency Department Comment on above: Musculoskeletal back pain (Primary Dx) Start: 10-27-2018 End: 10-27-2018 Emergency department patient visit Leslie Chung Work Phone: [facility] Department Comment on above: Left flank pain (Ghada ezio Dx); Elevated blood pressure reading; Hypertension, unspecified type Start: 08-31-2018 End: 08-31-2018 Office outpatient visit 25 minutes Kailyn Looney Work Phone: [facility] Comment on above: Hypertension, essent ial (Primary Dx); Erectile dysfunction, unspecified erectile dysfunction type; Hypertriglyceridemia; Androgen deficiency Start: 05-25-2018 End: 05-25-2018 Office outpatient visit 15 minutes Kailyn Looney Work Phone: [facility] Start: 12-15-2017 Prev visit, est, age 40-64 Darshan dhiraj Looney Work Phone: [facility] Start: 11-13-2017 Office/outpatient vi sit, est, level 3 Kailyn Looney Work Phone: [facility] Start: 08-18-2017 Office outpatient vi sit 15 minutes Kailyn Looney Work Phone: [facility] Procedures Date Procedure Procedure Detail Performing Clinician Start: 05-15-2020 Colonoscopy [place] Start: 08-16-2019 Ct maxillofacial w/o contrast material Earlene Cowan Work Phone: Start: 08-16-2019 Urinalysis macro (dipstick) panel - Urine Kailyn Looney Work Phone: Start: 01-11-2019 Adult depression scr [...] Chung Work Phone: Start: 10-27-2018 End: 10-27-2018 [employer] [employer] Alysa K Lurye Work Phone: Start: [...] 12-15-2017 Adult depression scr eening assessment Leslie Chung Plan of Treatment Date Care Activity Detail Author Start: 05-15-2030 Screening for malignant neoplasm of colon [facility] Start: 01-16-2022 Prostate specific antigen measurement PSA Level [facility] Start: 01-09-2021 History and physical examination, annual for health maintenance [facility] Start: 03-20-2020 End: 03-20-2020 Office Visit 03/20/2020 Office Visit Otolaryngology Earlene Cowan, DO [address] [facility] [address] [place] [address] [phone] [facility] Start: 02-08-2020 Administration of herpes zoster vaccine Zoster Vaccines (1 of 2) [facility] Start: 02-08-2020 Screening for malignant neoplasm of colon [facility] Start: 01-12-2020 Depression screening using PHQ-9 (Patient Health Questionnaire 9) score DEPRESSION SCREENING (PHQ9) [facility] Start: 01-12-2020 Screening for substance abuse SUBSTANCE ABUSE SCREENING (AUDIT-C) [facility] Start: 01-10-2020 End: 01-10-2020 Office Visit 01/10/2020 Office Visit Primary Care Kailyn Looney, DO [address] [facility] [address] [place] [address] [phone] [facility] Start: 01-07-2020 End: 01-07-2020 Follow-Up 01/07/2020 Follow-Up Otolaryngology Earlene Cowan, DO [address] [facility] [address] [place] [address] [phone] [facility] Start: 12-31-2019 End: 12-31-2019 Follow-Up 12/31/2019 Follow-Up Otolaryngology Earlene Cowan, DO [address] [facility] [address] [place] [address] [phone] [facility] Start: 12-25-2019 End: 12-25-2019 Clinical Support 12/25/2019 Clinical Support Otolaryngology Anisa Villaseñor AuD [facility] Start: 12-24-2019 End: 12-24-2019 Follow-Up 12/24/2019 Follow-Up OtolaryngologEarlene Hankins, DO [address] [facility] [address] [place] [address] [phone] [facility] Start: 12-17-2019 End: 12-17-2019 Follow-Up 12/17/2019 Follow-Up Otolaryngology Earlene Cowan, DO [address] [facility] [address] [place] [address] [phone] [facility] Start: 12-14-2019 History and physical examination, annual for health maintenance Wellness Visit [facility] Start: 12-13-2019 End: 12-13-2019 Follow-Up 12/13/2019 Follow-Up Otolaryngology Earlene Cowan, DO [address] [facility] [address] [place] [address] [phone] [facility] Start: 09-06-2019 End: 09-06-2019 Office Visit 09/06/2019 Office Visit Primary Care Kailyn Looney, DO [address] [facility] [address] [place] [address] [phone] [facility] Start: 08-23-2019 End: 08-23-2019 Office Visit 08/23/2019 Office Visit Otolaryngology Leslie Buck, DO [address] [facility] [address] [place] [address] [phone] [facility] Start: 08-02-2019 End: 08-02-2019 Office Visit 08/02/2019 Office Visit Otolaryngology Earlene Cowan, DO [address] [facility] [address] [place] [address] [phone] [facility] Start: 07-07-2019 Influenza vaccination given [facility] Start: 04-05-2019 End: 04-05-2019 Office Visit 04/05/2019 Office Visit Primary Care Kailyn Looney, DO [address] [facility] [address] [place] [address] [phone] [facility] Start: 02-22-2019 End: 02-22-2019 Office Visit 02/22/2019 Office Visit Primary Care Kailyn Looney [address] [facility] [address] [place] [address] [phone] [facility] Start: 01-11-2019 End: 01-11-2019 Office Visit 01/11/2019 Office Visit Primary Care Kailyn Looney [address] [facility] [address] [place] [address] [phone] [facility] Start: 12-15-2018 Adult depression screening assessment DEPRESSION SCREENING (PHQ9) [facility] Start: 12-15-2018 Depression screening using PHQ-9 (Patient Health Questionnaire 9) score DEPRESSION SCREENING (PHQ9) [facility] Start: 12-15-2018 Screening for substance abuse SUBSTANCE ABUSE SCREENING (AUDIT-C) [facility] Start: 12-15-2018 SUBSTANCE ABUSE SCREENING (AUDIT-C) SUBSTANCE ABUSE SCREENING (AUDIT-C) [facility] Start: 12-14-2018 End: 12-14-2018 Ambulatory 12/14/2018 Office Visit Primary Care Kailyn Looney [address] [facility] [address] [place] [address] [phone] [facility] Start: 07-07-2018 Influenza vaccination SEQUENTIAL INFLUENZA VACCINE (#1) [facility] Start: 07-07-2018 Influenza vaccination given SEQUENTIAL INFLUENZA VACCINE (#1) [facility] Start: 07-07-2017 Influenza vaccination SEQUENTIAL INFLUENZA VACCINE (#1) [facility] Work Phone: Start: 02-08-1988 Hepatitis C antibody, confirmatory test Hepatitis C Screening [facility] Start: 1986 COVID-19 Vaccine (1 of 2) COVID-19 Vaccine (1 of 2) [facility] Start: 1985 HIV screening HIV Screening [facility] Start: 1982 Adolescent depression screening assessment Depression Screening (PHQ9) [facility] Start: 1970 Prostate specific antigen measurement PSA Level [facility] Start: 1970 Tetanus vaccination [facility] Work Phone: End: 08-16-2020 Bacteria identified Aer cx Nom (Unsp spec) Urine Aerobic Culture Microbiology Routine Urinary frequency 1 Occurrences starting 08/16/2019 until 08/16/2020 [facility] Comment on above: 1 Occurrences starting 08/16/2019 until 08/16/2020 Bacteria identified Aer cx Nom (Unsp spec) Urine Aerobic Culture Microbiology Routine Urinary frequency 08/16/2019 9:30 AM EDT [facility] End: 12-15-2019 Complete blood count with white cell differential, manual CBC and Differential Routine Physical exam 1 Occurrences starting 12/14/2018 until 12/15/2019 [facility] Comment on above: 1 Occurrences starting 12/14/2018 until 12/15/2019 Complete blood count with white cell differential, manual CBC and Differential Routine Physical exam 12/14/2018 11:54 AM EST [facility] End: 01-10-2021 Complete blood count with white cell differential, manual CBC and Differential Lab Routine Physical exam 1 Occurrences starting 01/10/2020 until 01/10/2021 [facility] Comment on above: 1 Occurrences starting 01/10/2020 until 01/10/2021 End: 08-16-2020 Complete blood count with white cell differential, manual CBC and Differential Lab Routine Hypertension, essential 1 Occurrences starting 08/16/2019 until 08/16/2020 [facility] Comment on above: 1 Occurrences starting 08/16/2019 until 08/16/2020 End: 12-15-2019 Comprehensive metabolic 2000 panel Comprehensive Metabolic Panel Routine Physical exam 1 Occurrences starting 12/14/2018 until 12/15/2019 [facility] Comment on above: 1 Occurrences starting 12/14/2018 until 12/15/2019 End: 01-10-2021 Comprehensive metabolic 2000 panel Comprehensive Metabolic Panel Lab Routine Physical exam 1 Occurrences starting 01/10/2020 until 01/10/2021 [facility] Comment on above: 1 Occurrences starting 01/10/2020 until 01/10/2021 End: 08-16-2020 Comprehensive metabolic 2000 panel Comprehensive Metabolic Panel Lab Routine Hypertension, essential 1 Occurrences starting 08/16/2019 until 08/16/2020 [facility] Comment on above: 1 Occurrences starting 08/16/2019 until 08/16/2020 End: 12-16-2018 Comprehensive metabolic panel [AGGREGATE] Comprehensive Metabolic Panel Routine Physical exam 1 Occurrences starting 12/15/2017 until 12/16/2018 [facility] Work Phone: Comprehensive metabo lic panel [AGGREGATE] [facility] Work Phone: CT Angiogram Aorta Chest Abdomen Pelvis CT Angiogram Aorta Chest Abdomen Pelvis GERSON 10/28/2018 12:26 AM EST [facility] End: 12-16-2018 HbA1c Hemoglobin A1c Routine Diabetes mellitus screening 1 Occurrences starting 12/15/2017 until 12/16/2018 [facility] Work Phone: HbA1c [facility] Work Phone: End: 01-10-2021 HbA1c (Bld) [Mass fraction] Hemoglobin A1c Lab Routine Diabetes mellitus screening 1 Occurrences starting 01/10/2020 until 01/10/2021 [facility] Comment on above: 1 Occurrences starting 01/10/2020 until 01/10/2021 End: 12-15-2019 Hemoglobin A1c/Hemoglobin.total mass fraction (Bld) Hemoglobin A1c Routine Diabetes mellitus screening 1 Occurrences starting 12/14/2018 until 12/15/2019 [facility] Comment on above: 1 Occurrences starting 12/14/2018 until 12/15/2019 End: 12-15-2019 Lipid 1996 panel Lipid Panel Routine Lipid screening 1 Occurrences starting 12/14/2018 until 12/15/2019 [facility] Comment on above: 1 Occurrences starting 12/14/2018 until 12/15/2019 Lipid 1996 panel Lipid Panel Rou maryjo Lipid screening 12/14/2018 11:54 AM EST [facility] End: 01-10-2021 Lipid 1996 panel Lipid Panel Lab Routine Lipid screening 1 Occurrences starting 01/10/2020 until 01/10/2021 [facility] Comment on above: 1 Occurrences starting 01/10/2020 until 01/10/2021 End: 08-16-2020 Lipid 1996 panel Lipid Panel Lab Routine Hypertriglyceridemia 1 Occurrences starting 08/16/2019 until 08/16/2020 [facility] Comment on above: 1 Occurrences starting 08/16/2019 until 08/16/2020 End: 12-16-2018 Lipid panel Lipid Panel Routine Lipid screening 1 Occurrences starting 12/15/2017 until 12/16/2018 [facility] Work Phone: Lipid panel Lipid Panel Rout ine Lipid screening 12/15/2017 10:08 AM EST [facility] Work Phone: Procedure on tissue specimen [facility] Comment on above: Release Upon Ordering for 1 Occurrences starting 12/11/2019, 1 completed End: 01-09-2021 Prostate specific Ag [Mass/Vol] PSA, Screen Lab Routine Prostate cancer screening 1 Occurrences starting 01/10/2020 until 01/09/2021 [facility] Comment on above: 1 Occurrences starting 01/10/2020 until 01/09/2021 End: 08-16-2020 Testosterone Free [Mass/Vol] Testosterone, Total and Free (Calculated) Lab Routine Androgen deficiency 1 Occurrences starting 08/16/2019 until 08/16/2020 [facility] Comment on above: 1 Occurrences starting 08/16/2019 until 08/16/2020 Immunizations Immunization Date Immunization Notes Care Provider Zulema piper 08-13-2019 Influenza, injectabl e, Madin [place] Canine Kidney, preservative free, quadrivalent Earlene Klapchar [facility] 07-19-2019 hepatitis A vaccine, adult dosage Abbie hn Cocumelli [facility] 07-19-2019 hepatitis A vaccine, unspecified [facility] hepatitis A vaccine, adult dosage Abbie hn Cocumelli [facility] 01-16-2019 hepatitis A vaccine, adult dosage Prince lehmanradha Klapchar [facility] 08-18-2017 influenza, injectabl e, quadrivalent, preservative free Earlene Klapchar [facility] 07-26-2016 influenza, injectabl e, quadrivalent, preservative free Earlene Klapchar [facility] Payers Date Payer Category Payer Self-pay [id number] 2024 Unknown [id number] 2015 Unknown [id number] 2015 Unknown xxxxxxxxx [id number] 2015 Unknown [facility] HMO/EMILE CE PLUS/EFREM/EFREM PLUS [id number] 2015-Present [id number] 1970 Unknown [id number] [id number] 02 1970 Unknown [id number] [id number] 02 1970 Unknown [id number] [id number] 02 1970 Unknown [id number] [id number] 00 1970 Unknown [id number] [id number] 00 1970 Unknown [id number] [id number] 00 1970 Unknown [id number] 03 Private Health Insurance [employer] B MS DO NOT USE 1.1.23* [id number] Unknown [id number] [id number] 62 Unknown [id number] [id number] 62 Unknown [id number] [id number] 62 Unknown [id number] 62 Social History Date Type Detail Facility Start: 12-15-2017 End: 08-16-2019 Tobacco smoking status [facility] Never smoker [facility] Work Phone: Sex Assigned At Not on file [facility] Work Phone: Start: 01-01-2016 Alcohol Comment [facility] Start: 07-19-2019 End: 08-16-2019 Alcohol intake Current drinker of alcohol (finding) [facility] Start: 07-19-2019 History SDOH Social Connections Phone 5 [facility] Start: 07-19-2019 History SDOH Food Worry 1 [facility] Start: 08-28-2020 Tobacco use and exposure Never used [facility] Start: 1970 Sex Assigned At Male [facility] Medical Equipment Procedure Code Equipment Code Equipment Origin al Text Equipment Identifier Dates Hemostat 4 X 8in Surgicel - Sn/A [id number] Start: 12-11-2019 Evaluation note Note Date & Type Note Facility Evaluation note No assessment information availa [facility] Work Phone: Assessments Note Patient: ALLA COLBYDhiraj Darby RN: [phone] Age: 50 years Sex: Male : 1970 Associated Diagnoses: None Author: Geoff Zavala DOor Supervising Physician Comments GENERAL SURGERY PROGRESS NOTE [...] your doctor if you can take an vzfd-rrf-gyvbtjy pain medicine, such as acetaminophen (Tylenol), ibuprofen [...] Log into your personal health record on [email or web address] and enter S191 in the "Education" box to learn more about "Flank Pain: Care Instructions." Current as of: July 29, 2018 Content Version: 11.9 3762-9402 [employer]. Care instructions adapted under license by your healthcare professional. If you have questions about a medical condition or this instruction, always ask your healthcare professional. [employer] disclaims any warranty or liability for your use of this information. in this encounter* Jace Collado DO - 10/28/2018 Formatting of this note [...] your doctor if you can take an vmgv-vpe-gxmibes medicine. Take short walks several times a [...] Log into your personal health record on [email or web address] and enter I594 in the "Education" box to learn more about "Back Pain: Care Instructions." Current as of: July 26, 2018 Content Version: 11.9 5500-0874 [employer]. Care instructions adapted under license by your healthcare professional. If you have questions about a medical condition or this instruction, always ask your healthcare professional. [employer] disclaims any warranty or liability for your [...] Log into your personal health record on [email or web address] and enter Y090 in the "Education" box to learn more about "Back Stretches: Exercises." Current as of: July 26, 2018 Content Version: 11.9 0230-0771 [employer]. Care instructions adapted under license by your healthcare professional. If you have questions about a medical condition or this instruction, always ask your healthcare professional. [employer] disclaims any warranty or liability for your [...] not operate a vehicle (car, bike, motorcycle, food broker) machinery or power tools. Do not make [...] to call your physician or the hospital felling machine operator if you have any questions, and they will be glad to assist you. * Additional Instructions* Margoth Cowan, - 12/11/2019 Nasal / Sinus Surgery Patient [...] Time Provider Department Center 12/13/2019 9:15 AM Earlene Cowan, DO [facility] 12/17/2019 9:15 AM Earlene Cowan DO [facility] 12/24/2019 9:15 AM Earlene Cowan, DO [facility] 12/31/2019 9:15 AM Earlene Cowan, DO [facility] documented in this encounter Instructions * Patient Instructions - Aayush Kailyn Escobedo, - 11/02/2018 12:27 PM EST Low Back [...] infront of you at the same time. Yfuq-kz-zyzen exercise 1. Lie on your back with [...] your back with your knees bent. 2. "Brace" your stomach. This means to tighten your [...] Log into your personal health record on [email or web address] and enter Z938 in the "Education" box to learn more about "Low Back Pain: Exercises." Current as of: July 26, 2018 Content Version: 11.9 2718-9090 [employer]. Care instructions adapted under license by your healthcare professional. If you have questions about a medical condition or this instruction, always ask your healthcare professional. 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 He has tried muscle relaxant and NSAIDs [...] Coronary artery disease Mother at [address] [place] No Known Allergies The following portions of [...] Temp 99.2 F (37.3 C) Ht 5' 5" Wt 97.1 kg (214 lb) SpO2 98% [...] the medications. This note was generated using [employer] voice recognition software in an effort to expedite communication. Please excuse results in grammatical or wording errors. in this encounter* Kailyn Looney, - 12/14/2018 7:52 AM EST Subjective: Patient [...] and they have been high at the [facility]. Social History Tobacco Use Smoking status: Never Smoker Smokeless tobacco: Never Used Substance Use Topics Alcohol use: Yes Comment: rare Drug use: No Family History Problem Relation Age of Onset COPD Mother Coronary artery disease Mother at [address] [place] No Known Allergies The following portions of [...] Temp 97.6 F (36.4 C) Ht 5' 5" Wt 97.5 kg (215 lb) SpO2 98% [...] the medications. This note was generated using [employer] voice recognition software in an effort to [...] has been taking his telmisartan 40 mg daily. He denies any headache, dizziness, chest pain, [...] Coronary artery disease Mother at 66 [place] No Known Allergies The following portions of [...] Temp 97.6 F (36.4 C) Ht 5' 5" Wt 95.7 kg (211 lb) SpO2 98% [...] the medications. This note was generated using [employer] voice recognition software in an effort to [...] difficult at all in this encounter* Kailyn Looney DO - 03/15/2019 12:02 PM EDT Subjective: Patient [...] Coronary artery disease Mother at [address] [place] No Known Allergies The following portions of [...] Temp 98.3 F (36.8 C) Ht 5' 5" Wt 97.1 kg (214 lb) SpO2 98% [...] the medications. This note was generated using [employer] voice recognition software in an effort to [...] Coronary artery disease Mother at [address] [place] No Known Allergies The following portions of [...] 98.4 F (36.9 C) (Oral) Ht 5' 5" Wt 97.1 kg (214 lb) SpO2 95% [...] the medications. This note was generated using [employer] voice recognition software in an effort to [...] Coronary artery disease Mother at [address] [place] No Known Allergies The following portions of [...] Temp 98.2 F (36.8 C) Ht 5' 5" Wt 96.2 kg (212 lb) SpO2 96% [...] the medications. This note was generated using [employer] voice recognition software in an effort to expedite communication. Please excuse results in grammatical or wording errors. documented in this encounter* Margoth Cowan DO - 10/11/2019 8:02 AM EST ENT [...] More than three times a week Attends zoroastrian service: Not on file Active member of club or organization: Not on file Attends meetings of clubs or organizations: Not on file Relationship status: Not on file Other Topics Concern Not on file Social History Narrative Not on file Family History Problem Relation Age of Onset COPD Mother Coronary artery disease Mother at 66 [place] Past Surgical History: Procedure Laterality Date HERNIA [...] clinic visit. Patient will contact our surgical nurse practitioner nurse to set up a time. He will also need to undergo preoperative testing. Patient understands and agreeable to this plan. documented in this encounter* Earlene Cowan DO - 12/13/2019 9:21 AM EST Subjective [...] for splint removal. documented in this encounter* Earlene Cowan, - 12/17/2019 9:21 AM EST Subjective Patient [...] at this time. 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 We have instructed him to blow his nose but to avoid manipulating the anterior part of the nose forcefully. documented in this encounter* Earlene Cowan DO - 12/31/2019 9:35 AM EST Subjective [...] to perfect midline. documented in this encounter* Earlene Cowan DO - 01/07/2020 9:31 AM EST Subjective Patient [...] Coronary artery disease Mother at [address] [place] No Known Allergies The following portions of [...] Temp 99.2 F (37.3 C) Ht 5' 5" Wt 96.6 kg (213 lb) SpO2 98% [...] the medications. This note was generated using [employer] voice recognition software in an effort to [...] Coronary artery disease Mother at [address] [place] No Known Allergies The following portions of [...] Temp 98.2 F (36.8 C) Ht 5' 5" Wt 96.2 kg (212 lb) SpO2 96% [...] the medications. This note was generated using [employer] voice recognition software in an effort to expedite communication. Please excuse results in grammatical or wording errors. documented in this encounter Advance Directives No Advanced Directives Records FoundDocuments on File Type Date Recorded Patient Secretary Administrative Assistant Expl anation Advance Directives and Livin g Will 10/27/2018 11:01 PM Documents on File Type Date Recorded Patient Secretary Administrative Assistant Expl anation Advance Directives and Livin g Will 08/16/2019 11:01 PM Documents on File Type Date Recorded Patient Secretary Administrative Assistant Expl anation Advance Directives and Livin g Will Advance Directives and Livin g Will 12/11/2019 9:15 AM Documents on File Type Date Recorded Patient Secretary Administrative Assistant Expl anation Advance Directives and Livin g Will Advance Directives and Livin g Will 12/11/2019 9:15 AM Documents on File Type Date Recorded Patient Secretary Administrative Assistant Expl anation Advance Directives and Livin g Will 08/16/2019 11:01 PM Reason for Referral Status Reason Specialty Diagnoses / Procedures Referred By Contact Referred To Contact Authorized Sleep Medicine Diagnoses Witnessed episode of apnea Habitual snoring Kailyn Looney, DO [address] [facility] [address] [place] [address] Status Reason Specialty Diagnoses / Procedures Referre d By Contact Referred To Contact Closed Radiology Diagnoses Deviated nasal septum Chronic sinusitis, unspecified location Procedures CT Sinus Stealth Without Contrast Earlene Cowan, DO [address] [facility] [address] [place] [address] Summary Purpose Family History No Family History Records FoundNo Family History Records FoundNo Family History Records FoundNo Family History Records FoundNo Family History Records Found Procedure Findings Note Patient: VINH COLBY RN: (COL)-[id number] Age: 50 years Sex: Male : 1970 [...] post anesthetic surveillance concluded. Note DICTATED BY:DEMARCUS RUBIO MD SERVICE DATE:09/22/2020 PREOPERATIVE DIAGNOSIS: Recurrent incarcerated incisional hernia. POSTOPERATIVE DIAGNOSIS: Recurrent incarcerated incisional hernia. PROCEDURES: 1. Excision of implanted mesh. 2. Repair of recurrent incarcerated ventral incisional hernia with component separation and complex abdominal closure involving retrorectus repair and transversus abdominis release. SURGEON: Demarcus Rubio MD [employer] CONSULTANT: Austin Zavala DO ANESTHESIA: General. ESTIMATED BLOOD [...] summary document to your follow up appointments. [facility] 09/27/20 11:21 [address] [place]. [address] PATIENT INFORMATION Name: VINH COLBY Address: [address] [place] [address] [facility] [address] Age: 50 Years Phone: [phone] : 1970 12:00 MRN: ([facility])-[id number] Sex: Male Race: White Ethnicity: Not Hispan/Lat Admitted From: Clinic or [facility] Medical Service: Surgery Nurse Unit/Bed: (OR) [address] [place] [address] Admit Date: 09/22/2020 06:15 PCP: Physician, PCP Unknown PHYSICIANS INVOLVED WITH CARE Attending Physicians: Earle MARS , Demarcus - Surgery Admitting Physician: None found Primary Care Physician:Physician, PCP Unknown,Family Practice,,, - Consults: None found Problems Active Incisional hernia without obstruction or gangrene HTN (hypertension) Allergies No Known Medicat (more content not included)... Note Patient: VINH COLBY RN: ([id number] Age: 50 years Sex: Male : 1970 Associated Diagnoses: None Author: Austin Zavala DO Discharge Information Admit Date: 09/22/20 06:15 Discharge Date: 09/27/20 12:00 Discharge Disposition: Home 01 Reason For Visit: K43.2 R19.00 Attending Physician: Demarcus Rubio MD Primary Care Physician: Physician, PCP Unknown [...] discharged home with follow up with Dr. Rubio. Procedures Performed PROCEDURES Ventral herniorrhaphy (SNOMED CT 5926011180) performed by Earle MARS (more content not included)... Note Patient: HIRAMJAYNAELMIRA VINH Darby RN: ([facility])-[id number] Age: 50 years Sex: Male : 1970 [...] summary document to your follow up appointments. [facility] 09/27/20 11:21 [address] [place]. [address] PATIENT INFORMATION Name: VINH COLBY Address: [address] [place] [address] [facility] [address] Age: 50 Years Phone: [phone] : 1970 12:00 MRN: ([id number] Sex: Male Race: White Ethnicity: Not Hispan/Lat Admitted From: Clinic or [facility] Medical Service: Surgery Nurse Unit/Bed: (OR) [address] 5210-01 Admit Date: 09/22/2020 06:15 PCP: Physician, PCP Unknown PHYSICIANS INVOLVED WITH CARE Attending Physicians: Demarcus Rubio MD - Surgery Admitting Physician: None found Primary Care Physician:Physician, PCP Unknown,Family Practice,,, - Consults: None found Problems Active Incisional hernia without obstruction or gangrene HTN (hypertension) Allergies No Known Medicat (more content not included)... Note Patient: VINH COLBY RN: (COL)-[id number] Age: 50 years Sex: Male : 1970 Associated Diagnoses: None Author: Austin Zavala DO Discharge Information Admit Date: 09/22/20 06:15 Discharge Date: 09/27/20 12:00 Discharge Disposition: Home 01 Reason For Visit: K43.2 R19.00 Attending Physician: Demarcus Rubio MD Primary Care Physician: Physician, PCP Unknown [...] discharged home with follow up with Dr. Rubio. Procedures Performed PROCEDURES Ventral herniorrhaphy (SNOMED CT 2120133096) performed by Earle MARS (more content not included)... Additional Source Comments Reason for Visit (unrecogniz ed section and content) Reason Comments Flank Pain Reason Comments Back Pain Reason Comments Back Pain ER x 2- Hypertension lisinopril at 40g Reason Comments Annual Exam Reason Comments Hypertension Snoring Reason Comments Hypertension Reason Comments Hypertension follow up on blood p ressure Reason Comments Hypertension Hyperlipidemia Hand Pain Left Injections Hep A- First injecti on [facility]- February 15 Reason Comments Follow-up go over CT results Status Reason Specialty Diagnoses / Procedures Referre d By Contact Referred To Contact Diagnoses chronic nasal obstruction,DNS, turbinate hypertropgy Procedures [place] EXCISION TURBINATE,SUBMUCOUS [place] REPAIR OF NASAL SEPTUM Earlene Cowan, [address] [facility] [address] [place] [address] Reason Comments Erectile Dysfunction Discuss testosteron e , pt has been off testosterone since March- he is very frustrated Hypertension Status Reason Specialty Diagnoses / Procedures Referre d By Contact Referred To Contact Closed Radiology Diagnoses Deviated nasal septum Chronic sinusitis, unspecified location Procedures CT Sinus Stealth Without Contrast Earlene Cowan DO [address] [facility] [address] [place] [address] ED Provider Notes - Leslie Chung DO - 10/27/2018 4:18 PM ESTERadha Attestation Note - Leslie Chung DO - 10/27/2018 4:17 PM EST Miscellaneous Notes (unrecog nized section and content) Formatting of this note may be different from the original. ED PROVIDER NOTE [facility] EM[facility] NAME: Vinh Colby AGE: 48 y.o. : 1970 VISIT DATE: 10/27/2018 CSN: [id number] PCP: Kailyn Looney DO Chief Complaint Patient [...] Coronary artery disease Mother at 66 of [place] Social History Social History Marital status: Spouse [...] C) Oral 83 16 98 % 5' 4" 93.9 kg (207 lb) Physical Exam GENERAL [...] Colorless, Yellow Clarity, Urine Clear Clear Specific [place] 1.024 1.005 - 1.025 pH, Urine 5.0 [...] Ref Range Extra Tube Hold for add-ons. Babcock Top Result Value Ref Range Extra Tube [...] Normal appendix and unremarkable abdominal gas pattern. [facility]/[employer] Workstation ID: [id number] Procedures MDM Pain medicine [...] Disposition ED Disposition Condition Comment Discharge Vinh M Earnestine discharged to home/self care in stable condition. Follow-up Information 1. Kailyn Looney DO. Specialty: Family Medicine [address] [facility] [address] [place] [address] 2. [facility] Emergency Department. Specialty: Emergency Medicine Why: If symptoms worsen [address] [place] [address] Contact information for after-discharge care Follow-up information [...] Apply 1 patch topically daily . Leslie Alec DO She[place]on 10/27/18 1821 ED Attestation This patient was seen primarily [...] note may be different from the original. [facility] ED Resident Note: NAME: Vinh Colby 48 y.o. CSN: [id number] PCP: Kailyn Looney DO History: Chief Complaint: [...] REPAIR inguinal hernia TESTICLE SURGERY cancer 2005 FAM. Hx: Family History Problem Relation Age of Onset COPD Mother Coronary artery disease Mother at 66 of [place] SOC. Hx: Social History Social History Marital [...] Temp src Pulse Resp SpO2 Height Weight 12/23/18 0230 (!) 166/90 - - 83 14 [...] C) Oral 86 18 100 % 5' 5" 93.9 kg (207 lb) Physical Exam Constitutional: [...] other known risk factors. Radiology 2017. Feb 23:522550. DOI: 10.1148/radiol.[email or web address]. WPT/vrs Workstation ID: [id number] Procedures: Procedures ED [...] of his stay with us. Patient has [place] 5 and Valium at home from his [...] all of their questions had been answered. Vinh Colby case was discussed with my attending physician who agrees with their ED management and final disposition. Please refer to their attestation to this encounter for additional information. Clinical Impression: SNOMED CT(R) 1. Musculoskeletal back pain BACKACHE Disposition: Patient is being Discharge to home Discharge Medication List as of 10/28/2018 2:56 AM Jace Collado DO ED Resident Physician [facility] Emergency Department (Please note that portions of this note have been completed with a voice recognition software. Efforts were made to correct any errors, but occasionally words are mis-transcribed.) Jace Collado DO Resident 10/28/18 0311 Associated Order(s): ECG 12-LEAD EKG 12-lead Date/Time: 10/27/2018 11:07 PM Performed by: CHETAN JUAREZ Authorized by: LESLIE CHUNG Interpreted by ED [...] but it is just worse.in this encounter [facility] DEPARTMENT OF OTOLARYNGOLOGY Patient Name: Vinh Colby Date: 1970 Billing Number: [id number] Date of Procedure: 12/11/2019 Time: 1110 Pre Operative Diagnoses: 1. Deviated Nasal Septum 2. Nasal Obstruction 3. Bilateral Inferior Turbinate Hypertrophy Post Operative Diagnoses: 1. Deviated Nasal Septum 2. Nasal Obstruction 3. Bilateral Inferior Turbinate Hypertrophy Procedures: 1. Septoplasty 2. Bilateral Inferior Turbinate Reduction with Radiofrequency Ablation via Celon Surgeon: Dr. Earlene Cowan DO Plastic Card Grader Cardroom: 1. Maci Cowan DO, ENT Resident PGY-5 2. Charity Reyes [...] A time out was performed by Dr. Earlene Cowan to verify the correct patient and procedure, and everyone in the room was in agreement. The nasal septum was injected with 1% lido with [id number] epinephrine and a total of 10 cc [...] deviated bone and cartilage was removed with nighatahashi forceps. Next attention was taken to the [...] the recovery room in stable condition. Dr. Earlene Cowan was present during or performed the essential portions of the procedure and was involved in all medical and surgical decision-making. Specimens: Septal contents Estimated Blood Loss: 40 cc Complications: None. documented in this encounter Earlene Cowan DO - 12/11/2019 10:19 AM ESTMcSandro Robertson DO - 11/29/2019 9:31 AM EST H&P Notes (unrecognized sect ion and content) INTERVAL HISTORY AND PHYSICAL Patient Name: Vinh Colby Admit Date: MR #: [id number] : 1970 The H&P has been reviewed and the patient has been examined. I concur with the findings of the H&P. There are no significant changes. It is appropriate to proceed with the planned procedure. Earlene Cowan DO 12/11/2019 10:19 AM Assessment and Plan [...] was requested for preoperative evaluation by Dr. Cowan. Patient has a history of nasal congestion [...] be sent to surgeon of record, Dr. Cowan. Thank you for the opportunity to evaluate [...] Coronary artery disease Mother at 66 of [place] @ Prior to Admission medications Medication Sig [...] (36.7 C) (Temporal) Resp 18 Ht 5' 5" Wt 100.8 kg (222 lb 4.8 oz) [...] yourself frequently sleepy despite adequate hours of "sleep" the night before?: yes Do you fall [...] ized section and content) DATE CREATED AUTHOR 01/10/2020 [facility] DATE CREATED AUTHOR AUTHOR'S ORGANIZ ATION 05/29/2020 [facility] DATE CREATED AUTHOR AUTHOR'S ORGANIZ ATION 10/12/2020 [facility] DATE CREATED AUTHOR AUTHOR'S ORGANIZ ATION 12/13/2022 [facility] DATE CREATED AUTHOR AUTHOR'S ORGANIZ ATION 12/20/2024 [facility] Goals (unrecognized section and content) Goals may be documented in a n alternate sectionGoals may be documented in an alternate section Care Teams (unrecognized sec tion and content) Team Status: Active Member Role Status Dates Dr. Kailyn Ibrahim MD Primary Care Provider Active Team Status: Inactive Member Role Status Dates Dr. Kailyn Ibrahim MD Primary Care Provider, Attend ing Provider Active FOR RECORDS PERTAINING TO PATIENTS WHO ARE [...] BE BASED ON THE PRIMARY CLINICAL RECORDS. [facility]. provides no warranty or guarantee of the accuracy or completeness of information in this document.
[2025-05-29 08:31] LABS: Red Blood Cells-Urine 0 SEEN /hpf (0-5)
[2025-05-29 08:39] LABS: Hematocrit 44.8 % (40-54); Hemoglobin 15.3 g/dL (13.0-16.5); Immature Granulocytes Count 0.010 X10^3/uL (0.0-0.0); Mean Corp Hgb Conc 34.2 g/dL (32-36); Mean Corpuscular Volume 87.3 fL (80-94); Mean Platelet Vol. 9.9 fl (6.2-12.0); NRBC Flagged by Analyzer 0 % (0-5); Platelet Count 232 K/mm3 (150-450); RBC Distribution Width CV 12.1 % (11.6-14.6); RBC Distribution Width SD 39.2 fl (35.1-43.9); Red Blood Count 5.13 M/mm3 (4.6-6.2); White Blood Count 5.6 K/mm3 (4.4-11.0)
[2025-05-29 09:03] LABS: Color, Urine Yellow (Yellow); Glucose, Dipstick Normal (Normal); Ketone-Dipstick Negative (Negative); Leukocyte Esterase-Dipstick 25 /ul (Negative); Nitrite-Dipstick Negative (Negative); Occult Blood-Urine 10 /ul (Negative); Protein-Dipstick 15 mg/dl (Negative); Specific Gravity, Urine 1.020 (1.002-1.030); Urine Bilirubin Dipstick Negative (Negative)
[2025-05-29 09:30] LABS: AST(SGOT) 21 U/L (<=37); Alanine Aminotransfer ALT/SGPT 21 U/L (<=46); Albumin, Serum 3.6 g/dL (3.5-5.0); Alkaline Phosphatase 72 U/L (40-129); Anion Gap 11 (5-15); BUN 16 mg/dL (4-19); BUN/Creat Ratio 16.0 RATIO (10-20); Calcium,Total 9.1 mg/dL (7.6-11.0); Carbon Dioxide 23.2 mmol/L (21.0-32.0); Chloride 106 mmol/L (98-108); Cholesterol 123 mg/dL (<=200); Globulin 3.4 g/dL (2.2-4.2); Glucose 113 mg/dL (70-99); Low Density Lipoprotein Calc. 56 mg/dL; Potassium 3.6 mmol/L (3.3-5.1); Triglycerides 111 mg/dL; Very Low Density Lipoprotein 22 mg/dL (5-40); cholesterol:hdl ratio screen 2.72
[2025-05-29 09:55] LABS: Mucous, Urine 1+ /hpf (<or=2+); Squamous Epithelial Cells - UA 0-5 SEEN /hpf (0-5)
== END | disposition home or self-care (01) ==
LOC: LAB 07:18
PROVIDERS: PCP Family Medicine; Referring Provider Family Medicine; Visit Provider Family Medicine
DX: I10 Essential (primary) hypertension (principal); E06.3 Autoimmune thyroiditis
CPT/HCPCS: 36415; 80053; 80061; 81001; 84439; 84443; 85025

== ENCOUNTER → 2025-07-03 | Outpatient (CLI) | payer OTHER, SELFPAY ==
--- OUTSIDE RECORDS SUMMARY | 2025-07-03 07:22 | XMS RPT_ITS | CCD ---
Author Organization [facility] CliniSymn Care Team Providers Care [employer] Professor Name Role Phone Kailyn Looney Unavailable EARLENE COWAN Attending Unavail able CAMRYN, EARLENE JO Referring Unavail able AAYUSH, KAILYN PEARSON Primary Care Unavaila ble LETICIAAPBETSY, EARLENE JO Admitting Unavail able KLAPCHAR, EARLENE JO Attending Unavail able COCUMELLTanvi, KAILYN PEARSON Primary Care Unavaila ble KLAPBETSY, EARLENE JO Admitting Unavail able COCREBELLLTanvi, KAILYN PEARSON Primary Care Unavaila ble SANDRO PAYNE Attending Unavailable Kailyn Looney Primary Care Provider KAILYN LOONEY Primary Care Unavaila ble COCCHECO, KAILYN PEARSON Admitting Unavaila ble COCCHECO, KAILYN PEARSON Primary Care Unavaila ble GAIBLE, SANDRA ALVARADO Admitting Unavailab le GAIBLE, SANDRA ALVARADO Referring Unavailab le AZULUMELLKAILYN Cobb Primary Care Unavaila ble Kailyn Looney Primary Care Provider KAILYN LOONEY Attending Unavaila ble COCUMENIKA, KAILYN PEARSON Primary Care Unavaila ble Patrice MARS, Dr. Kailyn Ta Primary Care Provider [phone] Dr. Kailyn Ibrahim MD Attending Provider [phone] Dr. Kailyn Ibrahim MD Referring Provider [phone] Kailyn Ibrahim Attending Unavailable Kailyn Ibrahim Primary Care Unavailable Kailyn Ibrahim Referring Unavailable Kailyn Ibrahim Primary Care Unavailable Kailyn Ibrahim Attending Unavailable Kailyn Ibrahim Referring Unavailable Kailyn Ibrahim Primary Care Unavailable Kailyn Ibrahim Attending Unavailable Kailyn Ibrahim Referring Unavailable Kailyn Ibrahim Primary Care Unavailable Kailyn Ibrahim Attending Unavailable Medications Current Medications Medication Drug Class(es) [...] 08/02/2019 Active dexamethasone 6 mg oral tablet (2 sources) Corticosteroid Start: 08-03-2022 take 1 tablet by mouth once daily Dexamethasone 6 mg tablet Active 6 mg PO DAILY 5 0 August 03, 2022 12:00am diclofenac sodium 0.01 [...] Active Start: 01-11-2019 take 1 capsule by [facility] once daily hydroCHLOROthiazide (MICROZIDE) 12.5 mg capsule [...] spray(s) nasal route every hour sodium chloride ([place] Nasal) 0.65 % nasal spray Instill 2 [...] mg/ml oral solution (1 source) Phenothiazine, Uncompetitive Y-bumscy-L-aspartat e Receptor Antagonist, Sigma-1 Agonist Start: 02-27-2019 [...] Start: 01-15-2016 apply 30 g rectal ro [place] three times daily hydrocortisone-pramoxine (ANALPRAM-HC) 2.5-1 % [...] Start: 03-11-2019 take 1 tablet by kelly th once [...] present; Translations: [Medication side effect] Viral infection (2 sources) Disease caused by 2019-nCoV; Translations: [COVID-19] 08-03-2022 [...] Test Name Value Interpretation Reference Range Facility Absolute lymphocyte countOrd ered By: Kailyn Ibrahim on 05-29-2025 Lymphocytes Auto (Unsp spec) [#/Vol] 2.20 10*3/uL 0.83-4.51 [facility] Absolute neutrophil countOrd ered By: Kailyn Ibrahim on 05-29-2025 Neutrophils (Bld) [#/Vol] 2.6 10*3/uL 2.0-7.7 [facility] Anion gap in Serum or Plasma Ordered By: Kailyn Ibrahim on 05-29-2025 Anion gap [Moles/Vol] 11 mmol/L 5- [facility] Automated lymphocyte count a s percentage of total leukocytesOrdered By: Kailyn Ibrahim on 05-29-2025 Lymphocytes/100 WBC Auto (Unsp spec) 39.2 % - [facility] BUN/creatinine ratioOrdered By: Kailyn Ibrahim on 05-29-2025 Urea nitrogen/Creatinine [Mass ratio] 16.0 mg/mg 10- [facility] Basophil percentageOrdered B y: Kailyn Ibrahim on 05-29-2025 Basophils/100 WBC (Bld) 0.7 % 0-1 [facility] Bilirubin Test strip Ql (U)O rdered By: Kailyn Ibrahim on 05-29-2025 Bilirubin Ql (U) Negative Negative [facility] Bilirubin, totalOrdered By: Kailyn Ibrahim on 05-29-2025 Bilirubin [Mass/Vol] 0.92 mg/dL 0.00-1.30 [facility] CBC W/Diff, Automatedon 05-07 Absolute Lymph 2.20 X10 3/uL Normal 0.83-4.51 [facility] Comment on above: Order Comment: Order Date: 12/04/24 Order Info: 0184-1 - CBCD Performed By: #### L 506.0400, L100.0100, L500.4050, L500.4100, L501.9520 #### [facility] [address] [place], [address] Absolute Neut 2.6 X10 3/uL Normal 2.0-7.7 [facility] Comment on above: Order Comment: Order Date: 12/04/24 Order Info: 0184-1 - CBCD Performed By: #### L 506.0400, L100.0100, L500.4050, L500.4100, L501.9520 #### [facility] [address] [place], [address] Basophils/100 WBC (Bld) 0.7 % Normal 0-1 [facility] Comment on above: Order Comment: Order Date: 12/04/24 Order Info: 0184-1 - CBCD Performed By: #### L 506.0400, L100.0100, L500.4050, L500.4100, L501.9520 #### [facility] [address] [place], [address] Eosinophils/100 WBC (Bld) 3.6 % Normal 0-5 [facility] Comment on above: Order Comment: Order Date: 12/04/24 Order Info: 0184-1 - CBCD Performed By: #### L 506.0400, L100.0100, L500.4050, L500.4100, L501.9520 #### [facility] [address] [place], [address] Erythrocyte distribution width (RBC) [Ratio] 12.1 % Normal 11.6-14.6 [facility] Comment on above: Order Comment: Order Date: 12/04/24 Order Info: 0184-1 - CBCD Performed By: #### L 506.0400, L100.0100, L500.4050, L500.4100, L501.9520 #### [facility] [address] [place], [address] Hematocrit (Bld) [Volume fraction] 44.8 % Normal 40-54 [facility] Comment on above: Order Comment: Order Date: 12/04/24 Order Info: 0184-1 - CBCD Performed By: #### L 506.0400, L100.0100, L500.4050, L500.4100, L501.9520 #### [facility] [address] [place], [address] Hemoglobin (Bld) [Mass/Vol] 15.3 g/dL Normal 13.0-16.5 [facility] Comment on above: Order Comment: Order Date: 12/04/24 Order Info: 0184-1 - CBCD Performed By: #### L 506.0400, L100.0100, L500.4050, L500.4100, L501.9520 #### [facility] [address] [place], [address] IG% 0.200 Normal 0.0-0.9 [facility] Comment on above: Order Comment: Order Date: 12/04/24 Order Info: 0184-1 - CBCD Result Comment: IG% - Immature Granulocytes (promyelocytes, myelocytes and metamyelocytes) > 1% indicates that a LEFT SHIFT is Present. Performed By: #### L 506.0400, L100.0100, L500.4050, L500.4100, L501.9520 #### [facility] [address] [place], [address] Lymphocytes/100 WBC (Bld) 39.2 % Normal 19-41 [facility] Comment on above: Order Comment: Order Date: 12/04/24 Order Info: 0184- - CBCD Performed By: #### L 506.0400, L100.0100, L500.4050, L500.4100, L501.9520 #### [facility] [address] [place], [address] MCH (RBC) [Entitic mass] 29.8 pg Normal 27.0-32.0 [facility] Comment on above: Order Comment: Order Date: 12/04/24 Order Info: 0184-1 - CBCD Performed By: #### L 506.0400, L100.0100, L500.4050, L500.4100, L501.9520 #### [facility] [address] [place], [address] MCHC (RBC) [Mass/Vol] 34.2 g/dL Normal 32-36 [facility] Comment on above: Order Comment: Order Date: 12/04/24 Order Info: 0184-1 - CBCD Performed By: #### L 506.0400, L100.0100, L500.4050, L500.4100, L501.9520 #### [facility] [address] [place], [address] MCV (RBC) [Entitic vol] 87.3 fL Normal 80-94 [facility] Comment on above: Order Comment: Order Date: 12/04/24 Order Info: 0184-1 - CBCD Performed By: #### L 506.0400, L100.0100, L500.4050, L500.4100, L501.9520 #### [facility] [address] [place], [address] Monocytes/100 WBC (Bld) 10.0 % Normal 0-10 [facility] Comment on above: Order Comment: Order Date: 12/04/24 Order Info: 0184- - CBCD Performed By: #### L 506.0400, L100.0100, L500.4050, L500.4100, L501.9520 #### [facility] [address] [place], [address] Neutrophils/100 WBC (Bld) 46.3 % Low 47-70 [facility] Comment on above: Order Comment: Order Date: 12/04/24 Order Info: 0184- - CBCD Performed By: #### L 506.0400, L100.0100, L500.4050, L500.4100, L501.9520 #### [facility] [address] [place], [address] Nucleated RBC (Bld) [#/Vol] 0 10*3/uL Normal 0-5 [facility] Comment on above: Order Comment: Order Date: 12/04/24 Order Info: 0184-1 - CBCD Performed By: #### L 506.0400, L100.0100, L500.4050, L500.4100, L501.9520 #### [facility] [address] [place], [address] Platelet mean volume (Bld) [Entitic vol] 9.9 fL Normal 6.2-12.0 [facility] Comment on above: Order Comment: Order Date: 12/04/24 Order Info: 0184-1 - CBCD Performed By: #### L 506.0400, L100.0100, L500.4050, L500.4100, L501.9520 #### [facility] [address] [place], [address] Platelets (Bld) [#/Vol] 232 10*3/uL Normal 150-450 [facility] Comment on above: Order Comment: Order Date: 12/04/24 Order Info: 0184-1 - CBCD Performed By: #### L 506.0400, L100.0100, L500.4050, L500.4100, L501.9520 #### [facility] [address] [place], [address] RBC (Bld) [#/Vol] 5.13 10*6/uL Normal 4.6-6.2 [facility] Comment on above: Order Comment: Order Date: 12/04/24 Order Info: 0184-1 - CBCD Performed By: #### L 506.0400, L100.0100, L500.4050, L500.4100, L501.9520 #### [facility] [address] [place], [address] RDW SD 39.2 fl Normal 35.1-43.9 [facility] Comment on above: Order Comment: Order Date: 12/04/24 Order Info: 0184-1 - CBCD Performed By: #### L 506.0400, L100.0100, L500.4050, L500.4100, L501.9520 #### [facility] [address] [place], [address] WBC (Bld) [#/Vol] 5.6 10*3/uL Normal 4.4-11.0 [facility] Comment on above: Order Comment: Order Date: 12/04/24 Order Info: 0184-1 - CBCD Performed By: #### L 506.0400, L100.0100, L500.4050, L500.4100, L501.9520 #### [facility] [address] [place], [place], [address] Calculated very low density lipoprotein (VLDL) cholesterol measurementOrdered By: Kailyn Ibrahim on 05-29-2025 Calculated very low density lipoprotein (VLDL) cholesterol measurement 22 mg/dL 5-40 [facility] Carbon dioxide, total [Moles /volume] in Central venous bloodOrdered By: Kailyn Ibrahim on 05-29-2025 CO2 [Moles/Vol] 23.2 mmol/L 21.0-32.0 [facility] Chloride assayOrdered By: Abbie Ibrahim on 05-29-2025 Chloride [Moles/Vol] 106 mmol/L 98-108 [facility] Comprehensive Metabolic Prof ilon 05-29-2025 Albumin [Mass/Vol] 3.6 g/dL Normal 3.5-5.0 [facility] Comment on above: Order Comment: Order Date: 12/04/24 Order Info: 0786-1 - CMP Order Info: [id number] - LIPID Order Info: 3016-01 - TSH Order Info: 3024-05 - T4F Performed By: #### L 506.0400, L100.0100, L500.4050, L500.4100, L501.9520 #### [facility] [address] [place], [place], [address] Albumin/Globulin [Mass ratio] 1.1 {ratio} Normal 0.9-2.4 [facility] Comment on above: Order Comment: Order Date: 12/04/24 Order Info: 0786-1 - CMP Order Info: [id number] - LIPID Order Info: 3 - TSH Order Info: 7 - T4F Performed By: #### L 506.0400, L100.0100, L500.4050, L500.4100, L501.9520 #### [facility] [address] [place], [address] ALK PHOS 72 U/L Normal 40-129 [facility] Comment on above: Order Comment: Order Date: 12/04/24 Order Info: 86-1 - CMP Order Info: [id number] - LIPID Order Info: 3 - TSH Order Info: 3024-7 - T4F Performed By: #### L 506.0400, L100.0100, L500.4050, L500.4100, L501.9520 #### [facility] [address] [place], [address] ALT [Catalytic activity/Vol] 21 U/L Normal <=46 [facility] Comment on above: Order Comment: Order Date: 12/04/24 Order Info: 785-1 - CMP Order Info: [id number] - LIPID Order Info: 3 - TSH Order Info: 3024-7 - T4F Performed By: #### L 506.0400, L100.0100, L500.4050, L500.4100, L501.9520 #### [facility] [address] [place], [address] AST [Catalytic activity/Vol] 21 U/L Normal <=37 [facility] Comment on above: Order Comment: Order Date: 12/04/24 Order Info: 785-1 - CMP Order Info: [id number] - LIPID Order Info: 3 - TSH Order Info: 3024-7 - T4F Performed By: #### L 506.0400, L100.0100, L500.4050, L500.4100, L501.9520 #### [facility] [address] [place], [address] Bilirubin [Mass/Vol] 0.92 mg/dL Normal 0.00-1.30 [facility] Comment on above: Order Comment: Order Date: 12/04/24 Order Info: 86-1 - CMP Order Info: [id number] - LIPID Order Info: 3016-01 - TSH Order Info: 3024-7 - T4F Performed By: #### L 506.0400, L100.0100, L500.4050, L500.4100, L501.9520 #### [facility] [address] [place], [address] BUN/CRE 16.0 RATIO Normal 10-20 [facility] Comment on above: Order Comment: Order Date: 12/04/24 Order Info: 0786-1 - CMP Order Info: [id number] - LIPID Order Info: 3016-3 - TSH Order Info: 3024-7 - T4F Performed By: #### L 506.0400, L100.0100, L500.4050, L500.4100, L501.9520 #### [facility] [address] [place], [address] Calcium [Mass/Vol] 9.1 mg/dL Normal 7.6-11.0 [facility] Comment on above: Order Comment: Order Date: 12/04/24 Order Info: 07-1 - CMP Order Info: [id number] - LIPID Order Info: 3016-3 - TSH Order Info: 3024-7 - T4F Performed By: #### L 506.0400, L100.0100, L500.4050, L500.4100, L501.9520 #### [facility] [address] [place], [address] Chloride [Moles/Vol] 106 mmol/L Normal 98-108 [facility] Comment on above: Order Comment: Order Date: 12/04/24 Order Info: 0786-1 - CMP Order Info: 91752-8 - LIPID Order Info: 3016-3 - TSH Order Info: 3024-7 - T4F Performed By: #### L 506.0400, L100.0100, L500.4050, L500.4100, L501.9520 #### [facility] [address] [place], [address] CO2 [Moles/Vol] 23.2 mmol/L Normal 21.0-32.0 [facility] Comment on above: Order Comment: Order Date: 12/04/24 Order Info: 785-1 - CMP Order Info: - LIPID Order Info: 3 - TSH Order Info: 3023-7 - T4F Performed By: #### L 506.0400, L100.0100, L500.4050, L500.4100, L501.9520 #### [facility] [address] [place], [address] Creatinine [Mass/Vol] 0.97 mg/dL Normal 0.70-1.20 [facility] Comment on above: Order Comment: Order Date: 12/04/24 Order Info: 785- - CMP Order Info: - LIPID Order Info: 3016-01 - TSH Order Info: 7 - T4F Performed By: #### L 506.0400, L100.0100, L500.4050, L500.4100, L501.9520 #### [facility] [address] [place], [address] GAP 11 Normal 5-15 [facility] Comment on above: Order Comment: Order Date: 12/04/24 Order Info: 785- - CMP Order Info: - LIPID Order Info: 3 - TSH Order Info: 7 - T4F Performed By: #### L 506.0400, L100.0100, L500.4050, L500.4100, L501.9520 #### [facility] [address] [place], [address] GFR/1.73 sq M.predicted among non-blacks MDRD (S/P/Bld) [Vol rate/Area] 92 mL/min/{1.73_m2} Normal >60 [facility] Comment on above: Order Comment: Order Date: 12/04/24 Order Info: 785-1 - CMP Order Info: 10636-5 - LIPID Order Info: 3 - TSH Order Info: 3024-7 - T4F Result Comment: mL/m in/1.73m2 CKD-EPI Creatinine Equation (2020) Performed By: #### L 506.0400, L100.0100, L500.4050, L500.4100, L501.9520 #### [facility] [address] [place], [address] Globulin (S) [Mass/Vol] 3.4 g/dL Normal 2.2-4.2 [facility] Comment on above: Order Comment: Order Date: 12/04/24 Order Info: 785-1 - CMP Order Info: [id number] - LIPID Order Info: 3 - TSH Order Info: 7 - T4F Performed By: #### L 506.0400, L100.0100, L500.4050, L500.4100, L501.9520 #### [facility] [address] [place], [address] Glucose [Mass/Vol] 113 mg/dL High 70-99 [facility] Comment on above: Order Comment: Order Date: 12/04/24 Order Info: 785-11 - CMP Order Info: - LIPID Order Info: 3 - TSH Order Info: 7 - T4F Performed By: #### L 506.0400, L100.0100, L500.4050, L500.4100, L501.9520 #### [facility] [address] [place], [address] Potassium [Moles/Vol] 3.6 mmol/L Normal 3.3-5.1 [facility] Comment on above: Order Comment: Order Date: 12/04/24 Order Info: 785-1 - CMP Order Info: 10870-2 - LIPID Order Info: [id number] - TSH Order Info: 30247 - T4F Performed By: #### L 506.0400, L100.0100, L500.4050, L500.4100, L501.9520 #### [facility] [address] [place], [address] Sodium [Moles/Vol] 140 mmol/L Normal 133-145 [facility] Comment on above: Order Comment: Order Date: 12/04/24 Order Info: 0786-1 - CMP Order Info: [id number] - LIPID Order Info: 3 - TSH Order Info: 3024-7 - T4F Performed By: #### L 506.0400, L100.0100, L500.4050, L500.4100, L501.9520 #### [facility] [address] [place], [address] T PROT 7.0 g/dL Normal 5.9-8.4 [facility] Comment on above: Order Comment: Order Date: 12/04/24 Order Info: 0786- - CMP Order Info: - LIPID Order Info: 3 - TSH Order Info: 3027 - T4F Performed By: #### L 506.0400, L100.0100, L500.4050, L500.4100, L501.9520 #### [facility] [address] [place], [address] Urea nitrogen [Mass/Vol] 16 mg/dL Normal 4-19 [facility] Comment on above: Order Comment: Order Date: 12/04/24 Order Info: 0786- - CMP Order Info: [id number] - LIPID Order Info: 3 - TSH Order Info: 3024-7 - T4F Performed By: #### L 506.0400, L100.0100, L500.4050, L500.4100, L501.9520 #### [facility] [address] [place], [address] Eosinophil percentageOrdered By: Kailyn Ibrahim on 05-29-2025 Eosinophils/100 WBC (Bld) 3.6 % 0-5 [facility] Erythrocyte distribution wid th ratioOrdered By: Kailyn Ibrahim on 05-29-2025 Erythrocyte distribution width (RBC) [Ratio] 12.1 % 11.6-14.6 [facility] Erythrocyte distribution wid th standard deviationOrdered By: Kailyn Ibrahim on 05-29-2025 Erythrocyte distribution width (RBC) [Ratio] 39.2 fl 35.1-43.9 [facility] Glomerular filtration rate ( GFR) estimation/1.73 sq m using serum, plasma, or whole bOrdered By: Kailyn Ibrahim on 05-29-2025 GFR/1.73 sq M.predicted among non-blacks MDRD (S/P/Bld) [Vol rate/Area] 92 mL/min/{1.73_m2} >60 [facility] Comment on above: mL/min/1.73m2 CKD-EP I Creatinine Equation (2020) Hematocrit Auto (Bld) [Volum e fraction]Ordered By: Kailyn Ibrahim on 05-29-2025 Hematocrit (Bld) [Volume fraction] 44.8 % 40-54 [facility] Hemoglobin measurementOrdere d By: Kailyn Ibrahim on 05-29-2025 Hemoglobin (Bld) [Mass/Vol] 15.3 g/dL 13.0-16.5 [facility] Immature granulocytes/100 WB C Auto (Bld)Ordered By: Kailyn Ibrahim on 05-29-2025 Immature granulocytes/100 WBC (Bld) 0.200 % 0.0-0.9 [facility] Comment on above: IG% - Immature Granu locytes (promyelocytes, myelocytes and metamyelocytes) > 1% indicates that a LEFT SHIFT is Present. Ketones Test strip Ql (U)Ord ered By: Kailyn Ibrahim on 05-29-2025 Ketones Ql (U) Negative Negative [facility] LDL calc ser/plasOrdered By: Kailyn Ibrahim on 05-29-2025 Cholesterol in LDL [Mass/Vol] 56 mg/dL [facility] Comment on above: Nbyjvouzub=408-380 m g/dL & Higher Btip=988 mg/dL or greater Laboratory - Chemistry and C hemistry - challengeOrdered By: Kailyn Ibrahim on 05-29-2025 AST [Catalytic activity/Vol] 21 U/L <38 [facility] Lipid Profileon 05-29-2025 CHOL:HDL 2.72 Normal [facility] Comment on above: Order Comment: Order Date: 12/04/24 Order Info: 0786-1 - CMP Order Info: - LIPID Order Info: 3016-01 - TSH Order Info: 3024-05 T4F Performed By: #### L 506.0400, L100.0100, L500.4050, L500.4100, L501.9520 #### [facility] [address] [place], [address] Cholesterol [Mass/Vol] 123 mg/dL Normal <=200 [facility] Comment on above: Order Comment: Order Date: 12/04/24 Order Info: 07 - CMP Order Info: - LIPID Order Info: 3016-01 - TSH Order Info: 3024-05 T4F Result Comment: Chol esterol level, Desirable <200 mg/dL Borderline high cholesterol 200-239 mg/dL High cholesterol >=240 mg/dL Recommendations of the NCEP Adult Treatment Panel for the following risk-cutoff thresholds for the [place] population. Performed By: #### L 506.0400, L100.0100, L500.4050, L500.4100, L501.9520 #### [facility] [address] [place], [address] Cholesterol in HDL [Mass/Vol] 45 mg/dL Normal [facility] Comment on above: Order Comment: Order Date: 12/04/24 Order Info: 0786 - CMP Order Info: [id number] - LIPID Order Info: 3016-01 - TSH Order Info: 3024-05 T4F Result Comment: Nisha onal Cholesterol Education Program (NCEP) guidelines: <40 mg/dL: Low HDL-cholesterol (major risk factor for CHD) >= 60 mg/dL: High HDL-cholesterol (negative risk factor for CHD) HDL-cholesterol is affected by a number of factors, e.g. smoking, exercise, hormones, sex and age. Performed By: #### L 506.0400, L100.0100, L500.4050, L500.4100, L501.9520 #### [facility] [address] [place], [address] Cholesterol in LDL [Mass/Vol] 56 mg/dL Normal [facility] Comment on above: Order Comment: Order Date: 12/04/24 Order Info: 07- - CMP Order Info: [id number] - LIPID Order Info: 3 - TSH Order Info: 7 - T4F Result Comment: Bord bxwkef=953-322 mg/dL Higher Cmbe=358 mg/dL or greater Performed By: #### L 506.0400, L100.0100, L500.4050, L500.4100, L501.9520 #### [facility] [address] [place], [address] Cholesterol in VLDL [Mass/Vol] 22 mg/dL Normal 5-40 [facility] Comment on above: Order Comment: Order Date: 12/04/24 Order Info: 785-11 - CMP Order Info: - LIPID Order Info: [id number] - TSH Order Info: 3024-05 - T4F Performed By: #### L 506.0400, L100.0100, L500.4050, L500.4100, L501.9520 #### [facility] [address] [place], [address] Triglyceride [Mass/Vol] 111 mg/dL Normal [facility] Comment on above: Order Comment: Order Date: 12/04/24 Order Info: 07 - CMP Order Info: - LIPID Order Info: 3 - TSH Order Info: 7 - T4F Result Comment: The drugs N-Acetylcysteine and Metamizole may falsely depress this assay. Normal range: <150 mg/dL Borderline High: 150-199 mg/dL High: 200-499 mg/dL Very High: >500 mg/dL Performed By: #### L 506.0400, L100.0100, L500.4050, L500.4100, L501.9520 #### [facility] [address] [place], [address] MCV (mean corpuscular volume ) determinationOrdered By: Kailyn Ibrahim on 05-29-2025 MCV (RBC) [Entitic vol] 87.3 fL 80-94 [facility] Mean corpuscular hemoglobin (MCH) determinationOrdered By: Kailyn Ibrahim on 05-29-2025 MCH (RBC) [Entitic mass] 29.8 pg 27.0-32.0 [facility] Mean corpuscular hemoglobin concentration (MCHC) determinationOrdered By: Kailyn Ibrahim on 05-29-2025 MCHC (RBC) [Mass/Vol] 34.2 g/dL 32-36 [facility] Mean platelet volume determi nationOrdered By: Kailyn Ibrahim on 05-29-2025 Platelet mean volume (Bld) [Entitic vol] 9.9 fL 6.2-12.0 [facility] Microscopic analysis of urin e for red blood cells (RBC)Ordered By: Kailyn Ibrahim on 05-29-2025 Microscopic analysis of urine for red blood cells (RBC) 0 SEEN /hpf 0-5 [facility] Monocyte percentageOrdered B y: Kailyn Ibrahim on 05-29-2025 Monocytes/100 WBC (Bld) 10.0 % 0-10 [facility] Mucus LM Ql (Urine sed)Order ed By: Kailyn Ibrahim on 05-29-2025 Mucus Ql (Urine sed) 1+ /hpf [facility] Neutrophil percentageOrdered By: Kailyn Ibrahim on 05-29-2025 Neutrophils/100 WBC (Bld) 46.3 % Low 47-70 [facility] Nitrite Test strip Ql (U)Ord ered By: Kailyn Ibrahim on 05-29-2025 Nitrite Ql (U) Negative Negative [facility] Nucleated red blood cell per centageOrdered By: Kailyn Ibrahim on 05-29-2025 Nucleated RBC/100 WBC (Bld) [Ratio] 0 % 0-5 [facility] Platelet countOrdered By: Abbie Ibrahim on 05-29-2025 Platelets (Bld) [#/Vol] 232 10*3/uL 150-450 [facility] Potassium measurement (mass/ volume)Ordered By: Kailyn Ibrahim on 05-29-2025 Potassium (Unsp spec) [Mass/Vol] 3.6 mmol/L 3.3-5.1 [facility] Protein Test strip Ql (U)Ord ered By: Kailyn Ibrahim on 05-29-2025 Protein Ql (U) 15 mg/dl High Negative [facility] RBC Auto (Bld) [#/Vol]Ordere d By: Kailyn Ibrahim on 05-29-2025 RBC (Bld) [#/Vol] 5.13 10*6/uL 4.6-6.2 [facility] Screening total cholesterol/ high density lipoprotein (HDL) cholesterol ratioOrdered By: Kailyn Ibrahim on 05-29-2025 Cholesterol.total/Chol esterol in HDL [Mass ratio] 2.72 {ratio} [facility] Serum creatinine measurement (mass/volume)Ordered By: Kailyn Ibrahim on 05-29-2025 Creatinine [Mass/Vol] 0.97 mg/dL 0.70-1.20 [facility] Serum globulin measurementOr dered By: Kailyn Ibrahim on 05-29-2025 Globulin (S) [Mass/Vol] 3.4 g/dL 2.2-4.2 [facility] Serum glucose measurement (m ass/volume)Ordered By: Kailyn Ibrahim on 05-29-2025 Glucose [Mass/Vol] 113 mg/dL High 70-99 [facility] Serum or plasma alanine cox otransferase (ALT) measurementOrdered By: Kailyn Ibrahim on 05-29-2025 ALT [Catalytic activity/Vol] 21 U/L <47 [facility] Serum or plasma albumin josselin urement (mass/volume)Ordered By: Kailyn Ibrahim on 05-29-2025 Albumin [Mass/Vol] 3.6 g/dL 3.5-5.0 [facility] Serum or plasma albumin/glob ulin mass ratioOrdered By: Kailyn Ibrahim on 05-29-2025 Albumin/Globulin [Mass ratio] 1.1 {ratio} 0.9-2.4 [facility] Serum or plasma alkaline chiki sphatase measurementOrdered By: Kailyn Ibrahim on 05-29-2025 ALP [Catalytic activity/Vol] 72 U/L 40-129 [facility] Serum or plasma calcium josselin urement (mass/volume)Ordered By: Kailyn Ibrahim on 05-29-2025 Calcium [Mass/Vol] 9.1 mg/dL 7.6-11.0 [facility] Serum or plasma cholesterol in HDL measurement (mass/volume)Ordered By: Kailyn Ibrahim on 05-29-2025 Cholesterol in HDL [Mass/Vol] 45 mg/dL >40 [facility] Comment on above: National Cholesterol Education Program (NCEP) guidelines:<40 mg/dL: Low HDL-cholesterol (major risk factor for CHD)>= 60 mg/dL: High HDL-cholesterol (negative risk factor for CHD)HDL-cholesterol is affected by a number of factors, e.g. smoking, exercise, hormones, sex and age. Serum or plasma cholesterol measurement (mass/volume)Ordered By: Kailyn Ibrahim on 05-29-2025 Cholesterol [Mass/Vol] 123 mg/dL <201 [facility] Comment on above: Cholesterol level, D esirable <200 mg/dLBorderline high cholesterol 200-239 mg/dLHigh cholesterol >=240 mg/dLRecommendations of the NCEP Adult Treatment Panel for the following risk-cutoff thresholds for the [place] population. Serum or plasma urea nitroge n measurement (mass/volume)Ordered By: Kailyn Ibrahim on 05-29-2025 Urea nitrogen [Mass/Vol] 16 mg/dL 4-19 [facility] Sodium levelOrdered By: Kailyn Ibrahim on 05-29-2025 Sodium [Moles/Vol] 140 mmol/L 133-145 [facility] Squamous epithelial cells de tection in urine sediment by light microscopyOrdered By: Kailyn Ibrahim on 05-29-2025 Epithelial cells.squamous LM Ql (Urine sed) 0-5 SEEN /hpf 0-5 [facility] T4 Free Directon 05-29-2025 T4 FREE DIRECT 2.40 ng/dL High 0.76-1.46 [facility] Comment on above: Order Comment: Order Date: 06/05/24 Order Info: 0786-1 - CMP Order Info: [id number] - LIPID Order Info: 3016-3 - TSH Order Info: 2857-1 - PSA Order Info: 3024-7 - T4F Performed By: #### L 506.0400, L500.4050, L501.9520, L100.0100, L500.4100, L501.9910 #### [facility] [address] [place], [place], [id number] T4 freeOrdered By: Kailyn zeng on 05-29-2025 Free T4 [Mass/Vol] 2.40 ng/dL High 0.76-1.46 [facility] TSH DL <= 0.005 mIU/L QnOrde red By: Kailyn Ibrahim on 05-29-2025 TSH Qn 0.009 uIU/mL Low 0.300-4.20 0 [facility] Thyroid Stim Hormone (TSH)on 05-29-2025 TSH 0.009 uIU/mL Low 0.300-4.20 0 [facility] Comment on above: Order Comment: Order Date: 12/04/24 Order Info: 0786-1 - CMP Order Info: [id number] - LIPID Order Info: 3013 - TSH Order Info: 3024-7 - T4F Performed By: #### L 506.0400, L100.0100, L500.4050, L500.4100, L501.9520 #### [facility] [address] [place], [place], [id number] Total proteinOrdered By: Darshan Ibrahim on 05-29-2025 Protein [Mass/Vol] 7.0 g/dL 5.9-8.4 [facility] Triglycerides measurementOrd ered By: Kailyn Ibrahim on 05-29-2025 Triglyceride [Mass/Vol] 111 mg/dL <199 [facility] Comment on above: The drugs N-Acetylcy steine and Metamizole may falsely depress this assay. Normal range: <150 mg/dLBorderline High: 150-199 mg/dLHigh: 200-499 mg/dLVery High: >500 mg/dL Urinalysis, Completeon 05-29 EPI,SQUAMOUS 0-5 SEEN Normal 0-5 [facility] Comment on above: Order Comment: Order Date: 06/05/24 Order Info: 0786-1 - CMP Order Info: 13069-2 - LIPID Order Info: 301-3 - TSH Order Info: 2856-11 - PSA Order Info: 3024-05 - T4F Performed By: #### L 506.0400, L500.4050, L501.9520, L100.0100, L500.4100, L501.9910 #### [facility] [address] [place], [place], [address] (796) Mucus Ql (Urine sed) 1+ /hpf Normal [facility] Comment on above: Order Comment: Order Date: 06/05/24 Order Info: 785-11 - CMP Order Info: - LIPID Order Info: 3016-01 - TSH Order Info: 2856-11 - PSA Order Info: 3024-05 - T4F Performed By: #### L 506.0400, L500.4050, L501.9520, L100.0100, L500.4100, L501.9910 #### [facility] [address] [place], [place], [id number] WBC 0-5 SEEN Normal 0-5 [facility] Comment on above: Order Comment: Order Date: 06/05/24 Order Info: 785-11 - CMP Order Info: - LIPID Order Info: [id number] - TSH Order Info: 2856-11 - PSA Order Info: 3024-05 - T4F Performed By: #### L 506.0400, L500.4050, L501.9520, L100.0100, L500.4100, L501.9910 #### [facility] [address] [place], [address] BACTERIA 0 SEEN Normal None Seen [facility] Comment on above: Order Comment: Order Date: 06/05/24 Order Info: 785-11 - CMP Order Info: - LIPID Order Info: 3016-01 - TSH Order Info: 2856-11 - PSA Order Info: 3024-05 - T4F Performed By: #### L 506.0400, L500.4050, L501.9520, L100.0100, L500.4100, L501.9910 #### [facility] [address] [place], [address] RBC 0 SEEN Normal 0-5 [facility] Comment on above: Order Comment: Order Date: 06/05/24 Order Info: 0786-1 - CMP Order Info: 74041-8 - LIPID Order Info: 3016-3 - TSH Order Info: 2857-1 - PSA Order Info: 3024-7 - T4F Performed By: #### L 506.0400, L500.4050, L501.9520, L100.0100, L500.4100, L501.9910 #### [facility] [address] [place], [address] Urine clarityOrdered By: Darshan Ibrahim on 05-29-2025 Clarity (U) Clear Clear [facility] Urine color determinationOrd ered By: Kailyn Ibrahim on 05-29-2025 Color (U) Yellow Yellow [facility] Urine glucose detectionOrder ed By: Kailyn Ibrahim on 05-29-2025 Glucose Ql (U) Normal mg/dl Normal [facility] Urine leukocyte esterase det ection by dipstickOrdered By: Kailyn Ibrahim on 05-29-2025 Leukocyte esterase Test strip Ql (U) 25 /ul High Negative [facility] Urine pHOrdered By: Kailyn watkins on 05-29-2025 pH (U) 5.0 [pH] 5.0 - 8.0 [facility] Urine sediment bacteria coun t by microscopy (number/high power field)Ordered By: Kailyn Ibrahim on 05-29-2025 Bacteria LM.HPF (Urine sed) [#/Area] 0 /[HPF] None Seen [facility] Urine specific gravity measu rementOrdered By: Kailyn Ibrahim on 05-29-2025 Specific gravity (U) [Rel density] 1.020 1.002-1.03 0 [facility] Urine urobilinogen measureme ntOrdered By: Kailyn Ibrahim on 05-29-2025 Urobilinogen Ql (U) Normal mg/dl Normal [facility] White blood cell (WBC) count Ordered By: Kailyn Ibrahim on 05-29-2025 WBC (Bld) [#/Vol] 5.6 10*3/uL 4.4-11.0 [facility] White blood cell countOrdere d By: Kailyn Ibrahim on 05-29-2025 White blood cell count 0-5 SEEN /hpf 0-5 [facility] CBC W/Diff, Automatedon -2 Absolute Lymph 1.87 X10 3/uL Normal 0.83-4.51 [facility] Comment on above: Order Comment: Order Date: 06/05/24 Order Info: 0184- - CBCD Performed By: #### L 506.0400, L500.4050, L501.9520, L100.0100, L500.4100, L501.9910 #### [facility] [address] [place], [address] Absolute Neut 3.9 X10 3/uL Normal 2.0-7.7 [facility] Comment on above: Order Comment: Order Date: 06/05/24 Order Info: 0184-1 - CBCD Performed By: #### L 506.0400, L500.4050, L501.9520, L100.0100, L500.4100, L501.9910 #### [facility] [address] [place], [address] Basophils/100 WBC (Bld) 0.8 % Normal 0-1 [facility] Comment on above: Order Comment: Order Date: 06/05/24 Order Info: 0184-1 - CBCD Performed By: #### L 506.0400, L500.4050, L501.9520, L100.0100, L500.4100, L501.9910 #### [facility] [address] [place], [address] Eosinophils/100 WBC (Bld) 1.7 % Normal 0-5 [facility] Comment on above: Order Comment: Order Date: 06/05/24 Order Info: 0184-1 - CBCD Performed By: #### L 506.0400, L500.4050, L501.9520, L100.0100, L500.4100, L501.9910 #### [facility] [address] [place], [address] Erythrocyte distribution width (RBC) [Ratio] 12.9 % Normal 11.6-14.6 [facility] Comment on above: Order Comment: Order Date: 06/05/24 Order Info: 0184-1 - CBCD Performed By: #### L 506.0400, L500.4050, L501.9520, L100.0100, L500.4100, L501.9910 #### [facility] [address] [place], [address] Hematocrit (Bld) [Volume fraction] 45.9 % Normal 40-54 [facility] Comment on above: Order Comment: Order Date: 06/05/24 Order Info: 0184-1 - CBCD Performed By: #### L 506.0400, L500.4050, L501.9520, L100.0100, L500.4100, L501.9910 #### [facility] [address] [place], [address] Hemoglobin (Bld) [Mass/Vol] 15.9 g/dL Normal 13.0-16.5 [facility] Comment on above: Order Comment: Order Date: 06/05/24 Order Info: 0184-1 - CBCD Performed By: #### L 506.0400, L500.4050, L501.9520, L100.0100, L500.4100, L501.9910 #### [facility] [address] [place], [address] IG% 0.500 Normal 0.0-0.9 [facility] Comment on above: Order Comment: Order Date: 06/05/24 Order Info: 0184-1 - CBCD Result Comment: IG% - Immature Granulocytes (promyelocytes, myelocytes and metamyelocytes) > 1% indicates that a LEFT SHIFT is Present. Performed By: #### L 506.0400, L500.4050, L501.9520, L100.0100, L500.4100, L501.9910 #### [facility] [address] [place], [address] Lymphocytes/100 WBC (Bld) 28.2 % Normal 19-41 [facility] Comment on above: Order Comment: Order Date: 06/05/24 Order Info: 0184- - CBCD Performed By: #### L 506.0400, L500.4050, L501.9520, L100.0100, L500.4100, L501.9910 #### [facility] [address] [place], [address] MCH (RBC) [Entitic mass] 30.8 pg Normal 27.0-32.0 [facility] Comment on above: Order Comment: Order Date: 06/05/24 Order Info: 0184- - CBCD Performed By: #### L 506.0400, L500.4050, L501.9520, L100.0100, L500.4100, L501.9910 #### [facility] [address] [place], [address] MCHC (RBC) [Mass/Vol] 34.6 g/dL Normal 32-36 [facility] Comment on above: Order Comment: Order Date: 06/05/24 Order Info: 0184- - CBCD Performed By: #### L 506.0400, L500.4050, L501.9520, L100.0100, L500.4100, L501.9910 #### [facility] [address] [place], [address] MCV (RBC) [Entitic vol] 89.0 fL Normal 80-94 [facility] Comment on above: Order Comment: Order Date: 06/05/24 Order Info: 0184- - CBCD Performed By: #### L 506.0400, L500.4050, L501.9520, L100.0100, L500.4100, L501.9910 #### [facility] [address] [place], [address] Monocytes/100 WBC (Bld) 10.0 % Normal 0-10 [facility] Comment on above: Order Comment: Order Date: 06/05/24 Order Info: 0184- - CBCD Performed By: #### L 506.0400, L500.4050, L501.9520, L100.0100, L500.4100, L501.9910 #### [facility] [address] [place], [address] Neutrophils/100 WBC (Bld) 58.8 % Normal 47-70 [facility] Comment on above: Order Comment: Order Date: 06/05/24 Order Info: 0184- - CBCD Performed By: #### L 506.0400, L500.4050, L501.9520, L100.0100, L500.4100, L501.9910 #### [facility] [address] [place], [address] Nucleated RBC (Bld) [#/Vol] 0 10*3/uL Normal 0-5 [facility] Comment on above: Order Comment: Order Date: 06/05/24 Order Info: 0184- - CBCD Performed By: #### L 506.0400, L500.4050, L501.9520, L100.0100, L500.4100, L501.9910 #### [facility] [address] [place], [address] Platelet mean volume (Bld) [Entitic vol] 9.7 fL Normal 6.2-12.0 [facility] Comment on above: Order Comment: Order Date: 06/05/24 Order Info: 0184-1 - CBCD Performed By: #### L 506.0400, L500.4050, L501.9520, L100.0100, L500.4100, L501.9910 #### [facility] [address] [place], [address] Platelets (Bld) [#/Vol] 237 10*3/uL Normal 150-450 [facility] Comment on above: Order Comment: Order Date: 06/05/24 Order Info: 0184- - CBCD Performed By: #### L 506.0400, L500.4050, L501.9520, L100.0100, L500.4100, L501.9910 #### [facility] [address] [place], [address] RBC (Bld) [#/Vol] 5.16 10*6/uL Normal 4.6-6.2 [facility] Comment on above: Order Comment: Order Date: 06/05/24 Order Info: [id number] - CBCD Performed By: #### L 506.0400, L500.4050, L501.9520, L100.0100, L500.4100, L501.9910 #### [facility] [address] [place], [address] RDW SD 42.3 fl Normal 35.1-43.9 [facility] Comment on above: Order Comment: Order Date: 06/05/24 Order Info: 0184 - CBCD Performed By: #### L 506.0400, L500.4050, L501.9520, L100.0100, L500.4100, L501.9910 #### [facility] [address] [place], [address] WBC (Bld) [#/Vol] 6.6 10*3/uL Normal 4.4-11.0 [facility] Comment on above: Order Comment: Order Date: 06/05/24 Order Info: 0184-1 - CBCD Performed By: #### L 506.0400, L500.4050, L501.9520, L100.0100, L500.4100, L501.9910 #### [facility] [address] [place], [address] Comprehensive Metabolic Prof ilon 11-28-2024 Albumin [Mass/Vol] 3.6 g/dL Normal 3.2-5.0 [facility] Comment on above: Order Comment: Order Date: 06/05/24 Order Info: 86-1 - CMP Order Info: [id number] - LIPID Order Info: 3 - TSH Order Info: 2856-11 - PSA Order Info: 3024-7 - T4F Performed By: #### L 506.0400, L500.4050, L501.9520, L100.0100, L500.4100, L501.9910 #### [facility] [address] [place], [address] Albumin/Globulin [Mass ratio] 0.9 {ratio} Normal 0.9-2.4 [facility] Comment on above: Order Comment: Order Date: 06/05/24 Order Info: 785-11 - CMP Order Info: - LIPID Order Info: 3 - TSH Order Info: 2856-11 - PSA Order Info: 3024-7 - T4F Performed By: #### L 506.0400, L500.4050, L501.9520, L100.0100, L500.4100, L501.9910 #### [facility] [address] [place], [address] ALK P 78 U/L Normal 45-117 [facility] Comment on above: Order Comment: Order Date: 06/05/24 Order Info: 785-11 - CMP Order Info: 14323-5 - LIPID Order Info: 3 - TSH Order Info: 28505-06 - PSA Order Info: 3024-7 - T4F Performed By: #### L 506.0400, L500.4050, L501.9520, L100.0100, L500.4100, L501.9910 #### [facility] [address] [place], [address] ALT [Catalytic activity/Vol] 35 U/L Normal 16-61 [facility] Comment on above: Order Comment: Order Date: 06/05/24 Order Info: 785-1 - CMP Order Info: 85739-0 - LIPID Order Info: 3015-3 - TSH Order Info: 2851 - PSA Order Info: 7 - T4F Performed By: #### L 506.0400, L500.4050, L501.9520, L100.0100, L500.4100, L501.9910 #### [facility] [address] [place], [address] AST [Catalytic activity/Vol] 31 U/L Normal 15-37 [facility] Comment on above: Order Comment: Order Date: 06/05/24 Order Info: 785-11 - CMP Order Info: - LIPID Order Info: 3016-01 - TSH Order Info: 2856-11 - PSA Order Info: 7 - T4F Result Comment: Mode rate Hemolysis, Result may be falsely increased. Performed By: #### L 506.0400, L500.4050, L501.9520, L100.0100, L500.4100, L501.9910 #### [facility] [address] [place], [address] Bilirubin [Mass/Vol] 1.20 mg/dL High 0.20-1.00 [facility] Comment on above: Order Comment: Order Date: 06/05/24 Order Info: 785-11 - CMP Order Info: - LIPID Order Info: 3 - TSH Order Info: 1 - PSA Order Info: 7 - T4F Result Comment: For patients on eltrombopag therapy, use of Dimension [place] TBIL is not recommended. Performed By: #### L 506.0400, L500.4050, L501.9520, L100.0100, L500.4100, L501.9910 #### [facility] [address] [place], [address] BUN/CRE 15.4 RATIO Normal 10-20 [facility] Comment on above: Order Comment: Order Date: 06/05/24 Order Info: 86-1 - CMP Order Info: [id number] - LIPID Order Info: 3016-3 - TSH Order Info: 2857-1 - PSA Order Info: 3024-7 - T4F Performed By: #### L 506.0400, L500.4050, L501.9520, L100.0100, L500.4100, L501.9910 #### [facility] [address] [place], [address] CA,Total 9.1 mg/dL Normal 8.5-10.1 [facility] Comment on above: Order Comment: Order Date: 06/05/24 Order Info: 785-1 - CMP Order Info: 45746-5 - LIPID Order Info: 3015-3 - TSH Order Info: 2856-11 - PSA Order Info: 3024-7 - T4F Performed By: #### L 506.0400, L500.4050, L501.9520, L100.0100, L500.4100, L501.9910 #### [facility] [address] [place], [address] Chloride [Moles/Vol] 106 mmol/L Normal 98-107 [facility] Comment on above: Order Comment: Order Date: 06/05/24 Order Info: 785-1 - CMP Order Info: 71520-7 - LIPID Order Info: 301-3 - TSH Order Info: 2857-1 - PSA Order Info: 3024-7 - T4F Performed By: #### L 506.0400, L500.4050, L501.9520, L100.0100, L500.4100, L501.9910 #### [facility] [address] [place], [address] CO2 [Moles/Vol] 27.0 mmol/L Normal 21.0-32.0 [facility] Comment on above: Order Comment: Order Date: 06/05/24 Order Info: 785-11 - CMP Order Info: - LIPID Order Info: 3016-01 - TSH Order Info: 2856-11 - PSA Order Info: 3024-05 - T4F Performed By: #### L 506.0400, L500.4050, L501.9520, L100.0100, L500.4100, L501.9910 #### [facility] [address] [place], [address] Creatinine [Mass/Vol] 1.04 mg/dL Normal 0.70-1.30 [facility] Comment on above: Order Comment: Order Date: 06/05/24 Order Info: 785-11 - CMP Order Info: - LIPID Order Info: 3016-01 - TSH Order Info: 2856-11 - PSA Order Info: 3024-05 - T4F Result Comment: The validity of the calculated GFR GFRAA in patients over 70 years has not been determined. Clinical correlation is essential. Performed By: #### L 506.0400, L500.4050, L501.9520, L100.0100, L500.4100, L501.9910 #### [facility] [address] [place], [address] EST GFR - AA 95 mL/min Normal >60 [facility] Comment on above: Order Comment: Order Date: 06/05/24 Order Info: 785-11 - CMP Order Info: - LIPID Order Info: 3016-01 - TSH Order Info: 2856-11 - PSA Order Info: 3024-05 - T4F Result Comment: Afri can [place] GFR Calc Performed By: #### L 506.0400, L500.4050, L501.9520, L100.0100, L500.4100, L501.9910 #### [facility] [address] [place], [address] GAP 7 Normal 5-15 [facility] Comment on above: Order Comment: Order Date: 06/05/24 Order Info: 785-11 - CMP Order Info: - LIPID Order Info: 3 - TSH Order Info: 2856-11 - PSA Order Info: 3024-05 - T4F Performed By: #### L 506.0400, L500.4050, L501.9520, L100.0100, L500.4100, L501.9910 #### [facility] [address] [place], [address] GFR/1.73 sq M.predicted among non-blacks MDRD (S/P/Bld) [Vol rate/Area] 79 mL/min/{1.73_m2} Normal >60 [facility] Comment on above: Order Comment: Order Date: 06/05/24 Order Info: 785-11 - CMP Order Info: - LIPID Order Info: 3016-01 - TSH Order Info: 2856-11 - PSA Order Info: 3024-05 - T4F Result Comment: Non- GFR Calc Performed By: #### L 506.0400, L500.4050, L501.9520, L100.0100, L500.4100, L501.9910 #### [facility] [address] [place], [address] Globulin (S) [Mass/Vol] 4.0 g/dL Normal 2.2-4.2 [facility] Comment on above: Order Comment: Order Date: 06/05/24 Order Info: 785-11 - CMP Order Info: - LIPID Order Info: 3 - TSH Order Info: 2856-11 - PSA Order Info: 7 - T4F Performed By: #### L 506.0400, L500.4050, L501.9520, L100.0100, L500.4100, L501.9910 #### [facility] [address] [place], [address] Glucose [Mass/Vol] 95 mg/dL Normal 74-106 [facility] Comment on above: Order Comment: Order Date: 06/05/24 Order Info: 785- - CMP Order Info: - LIPID Order Info: 3 - TSH Order Info: 2856-11 - PSA Order Info: 7 - T4F Performed By: #### L 506.0400, L500.4050, L501.9520, L100.0100, L500.4100, L501.9910 #### [facility] [address] [place], [address] Potassium [Moles/Vol] 4.1 mmol/L Normal 3.5-5.1 [facility] Comment on above: Order Comment: Order Date: 06/05/24 Order Info: 785- - CMP Order Info: - LIPID Order Info: 3 - TSH Order Info: [id number] - PSA Order Info: 302-7 - T4F Result Comment: Mode rate Hemolysis, Result may be falsely increased. Performed By: #### L 506.0400, L500.4050, L501.9520, L100.0100, L500.4100, L501.9910 #### [facility] [address] [place], [address] Sodium [Moles/Vol] 140 mmol/L Normal 136-145 [facility] Comment on above: Order Comment: Order Date: 06/05/24 Order Info: 785-11 - CMP Order Info: - LIPID Order Info: [id number] - TSH Order Info: [id number] - PSA Order Info: 7 - T4F Performed By: #### L 506.0400, L500.4050, L501.9520, L100.0100, L500.4100, L501.9910 #### [facility] [address] [place], [address] T PROT 7.6 g/dL Normal 6.4-8.2 [facility] Comment on above: Order Comment: Order Date: 06/05/24 Order Info: [id number] - CMP Order Info: - LIPID Order Info: [id number] - TSH Order Info: [id number] - PSA Order Info: 3024-05 - T4F Performed By: #### L 506.0400, L500.4050, L501.9520, L100.0100, L500.4100, L501.9910 #### [facility] [address] [place], [address] Urea nitrogen [Mass/Vol] 16 mg/dL Normal 7-18 [facility] Comment on above: Order Comment: Order Date: 06/05/24 Order Info: [id number] - CMP Order Info: - LIPID Order Info: [id number] - TSH Order Info: [id number] - PSA Order Info: 3024-05 - T4F Performed By: #### L 506.0400, L500.4050, L501.9520, L100.0100, L500.4100, L501.9910 #### [facility] [address] [place], [address] Lipid Profileon 11-28-2024 Cholesterol [Mass/Vol] 196 mg/dL Normal 200 [facility] Comment on above: Order Comment: Order Date: 06/05/24 Order Info: [id number] - CMP Order Info: - LIPID Order Info: [id number] - TSH Order Info: [id number] - PSA Order Info: 7 - T4F Result Comment: <200 mg/dL Desirable 200-240 mg/dL Borderline >240 mg/dL High Risk Performed By: #### L 506.0400, L500.4050, L501.9520, L100.0100, L500.4100, L501.9910 #### [facility] [address] [place], [address] Cholesterol in HDL [Mass/Vol] 65 mg/dL Normal [facility] Comment on above: Order Comment: Order Date: 06/05/24 Order Info: [id number]- - CMP Order Info: - LIPID Order Info: [id number] - TSH Order Info: [id number] - PSA Order Info: 7 - T4F Result Comment: The drugs N-Acetylcysteine and Metamizole may falsely depress this assay. Reference Range HDL <40 mg/dL Low HDL Cholesterol HDL >or= 60 mg/dL High HDL Cholesterol Performed By: #### L 506.0400, L500.4050, L501.9520, L100.0100, L500.4100, L501.9910 #### [facility] [address] [place], [address] Cholesterol in LDL [Mass/Vol] 106 mg/dL Normal 0-130 [facility] Comment on above: Order Comment: Order Date: 06/05/24 Order Info: [id number] - CMP Order Info: - LIPID Order Info: [id number] - TSH Order Info: [id number] - PSA Order Info: 3024-05 - T4F Performed By: #### L 506.0400, L500.4050, L501.9520, L100.0100, L500.4100, L501.9910 #### [facility] [address] [place], [address] Cholesterol in VLDL [Mass/Vol] 25 mg/dL Normal 5-40 [facility] Comment on above: Order Comment: Order Date: 06/05/24 Order Info: [id number] - CMP Order Info: [id number] - LIPID Order Info: [id number] - TSH Order Info: [id number] - PSA Order Info: 7 - T4F Performed By: #### L 506.0400, L500.4050, L501.9520, L100.0100, L500.4100, L501.9910 #### [facility] [address] [place], [address] Triglyceride [Mass/Vol] 125 mg/dL Normal [facility] Comment on above: Order Comment: Order Date: 06/05/24 Order Info: 785- - CMP Order Info: [id number] - LIPID Order Info: 3 - TSH Order Info: [id number] - PSA Order Info: 3024-05 - T4F Result Comment: The drugs N-Acetylcysteine and Metamizole may falsely depress this assay. Serum Triglycerides Reference Interval Normal <150 mg/dL Borderline high 150 - 199 mg/dL High 200 - 499 mg/dL Very High > or = 500 mg/dL Performed By: #### L 506.0400, L500.4050, L501.9520, L100.0100, L500.4100, L501.9910 #### [facility] [address] [place], [place], [id number] PSA,Total - Annual Screenon 11-28-2024 PSA,TOT SCREEN 0.54 ng/mL Normal 0.00-4.00 [facility] Comment on above: Order Comment: Order Date: 06/05/24 Order Info: [id number] - CMP Order Info: [id number] - LIPID Order Info: [id number] - TSH Order Info: [id number] - PSA Order Info: 3024-05 - T4F Result Comment: This test was performed using the TPSA assay method for the [employer] chemistry system. Values obtained with different assay methods cannot be used interchangably. When changing PSA assays in the course of monitoring a patient, additional sequential testing should be carried out to confirm baseline values. Performed By: #### L 506.0400, L500.4050, L501.9520, L100.0100, L500.4100, L501.9910 #### [facility] [address] [place], [place], [id number] T4 Free Directon 11-28-2024 T4 FREE DIRECT 0.88 ng/dL Normal 0.76-1.46 [facility] Comment on above: Order Comment: Order Date: 06/05/24 Order Info: [id number]- - CMP Order Info: [id number] - LIPID Order Info: 3 - TSH Order Info: [id number] - PSA Order Info: 7 - T4F Performed By: #### L 506.0400, L500.4050, L501.9520, L100.0100, L500.4100, L501.9910 #### [facility] [address] [place], [address] Thyroid Stim Hormone (TSH)on 11-28-2024 TSH 2.540 uIU/mL Normal 0.358-3.74 0 [facility] Comment on above: Order Comment: Order Date: 06/05/24 Order Info: [id number] - CMP Order Info: [id number] - LIPID Order Info: [id number] - TSH Order Info: [id number] - PSA Order Info: 3024-7 - T4F Performed By: #### L 506.0400, L500.4050, L501.9520, L100.0100, L500.4100, L501.9910 #### [facility] [address] [place], [address] Foot min 3 Viewson 4 Foot min [address] [facility] [address] [place] [address] Foot min 3 Views MR#: [id number] Acct: [id number] Name: VINH COLBY Rep #: [id number] : 1970 54 From: De Brito DO PCP: Dr. Kailyn Ibrahim MD Status: REG CLI Study: Foot min 3 Views Date of Exam: 08/30/24 Exam# [id number] Ordering Dr: Kailyn Ibrahim MD [id number] INDICATION: Pain, possible heel spur EXAMINATION/TECHNIQUE: X-RAY [...] Signed: De Brito DO at 16:56 EDT , CC: Dr. 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, [address] Absolute lymphocyte countOrd ered By: Kailyn Ibrahim on 05-17-2023 Lymphocytes Auto (Unsp spec) [#/Vol] 1.60 10*3/uL 0.83-4.51 [facility] Basophil percentageOrdered B y: Kailyn Ibrahim on 05-17-2023 Basophil percentage 0 SEEN /hpf 0-5 [facility] Basophils/100 WBC (Bld) 0.9 % 0-1 [facility] Bilirubin [Mass/Vol] 1.10 mg/dL 0.20-1.00 [facility] Comment on above: For patients on eltr ombopag therapy, use of Dimension [place] TBIL is not recommended. Chloride [Moles/Vol] 107 mmol/L 98-107 [facility] Eosinophils/100 WBC (Bld) 0.7 % 0-5 [facility] Glucose [Mass/Vol] 91 mg/dL 74-106 [facility] Neutrophils (Bld) [#/Vol] 3.2 10*3/uL 2.0-7.7 [facility] Neutrophils/100 WBC (Bld) 58.9 % 47-70 [facility] Potassium [Moles/Vol] 4.3 mmol/L 3.5-5.1 [facility] Protein [Mass/Vol] 7.6 g/dL 6.4-8.2 [facility] Sodium [Moles/Vol] 139 mmol/L 136-145 [facility] WBC (Bld) [#/Vol] 5.4 10*3/uL 4.4-11.0 [facility] Bilirubin Test strip Ql (U)O rdered By: Kailyn Ibrahim on 05-17-2023 Bilirubin Ql (U) Negative Negative [facility] Blood erythrocytes count (nu mber/volume)Ordered By: Kailyn Ibrahim on 05-17-2023 RBC (Bld) [#/Vol] 5.13 10*6/uL 4.6-6.2 [facility] Blood hemoglobin measurement (mass/volume)Ordered By: Kailyn Ibrahim on 05-17-2023 Hemoglobin (Bld) [Mass/Vol] 16.1 g/dL 13.0-16.5 [facility] Blood lymphocytes/100 leukoc ytesOrdered By: Kailyn Ibrahim on 05-17-2023 Lymphocytes/100 WBC (Bld) 29.5 % 19-41 [facility] Blood monocytes/100 leukocyt esOrdered By: Kailyn Ibrahim on 05-17-2023 Monocytes/100 WBC (Bld) 9.6 % 0-10 [facility] Blood platelet mean volumeOr dered By: Kailyn Ibrahim on 05-17-2023 Platelet mean volume (Bld) [Entitic vol] 10.2 fL 6.2-12.0 [facility] Determination of erythrocyte mean corpuscular volume (MCV)Ordered By: Kailyn Ibrahim on 05-17-2023 MCV (RBC) [Entitic vol] 89.3 fL 80-94 [facility] Hematocrit Auto (Bld) [Volum e fraction]Ordered By: Kailyn Ibrahim on 05-17-2023 Hematocrit (Bld) [Volume fraction] 45.8 % 40-54 [facility] Ketones Test strip Ql (U)Ord ered By: Kailyn Ibrahim on 05-17-2023 Ketones Ql (U) Negative Negative [facility] - Chemistry and C hemistry - challengeOrdered By: Kailyn Ibrahim on 05-17-2023 ALP [Catalytic activity/Vol] 83 U/L 45-117 [facility] ALT [Catalytic activity/Vol] 38 U/L 16-61 [facility] CO2 [Moles/Vol] 27.0 mmol/L 21.0-32.0 [facility] Free T4 [Mass/Vol] 1.02 ng/dL 0.76-1.46 [facility] Globulin (S) [Mass/Vol] 4.0 g/dL 2.2-4.2 [facility] Urea nitrogen/Creatinine [Mass ratio] 16.5 mg/mg 10-20 [facility] - Hematology and Cell countsOrdered By: Kailyn Ibrahim on 05-17-2023 Erythrocyte distribution width (RBC) [Entitic vol] 41.1 fL 35.1-43.9 [facility] Erythrocyte distribution width (RBC) [Ratio] 12.6 % 11.6-14.6 [facility] Immature granulocytes/100 WBC (Bld) 0.400 % 0.0-0.9 [facility] Comment on above: IG% - Immature Granu locytes (promyelocytes, myelocytes and metamyelocytes) > 1% indicates that a LEFT SHIFT is Present. MCH (RBC) [Entitic mass] 31.4 pg 27.0-32.0 [facility] Nucleated RBC/100 WBC (Bld) [Ratio] 0 % 0-5 [facility] MCHC Auto (RBC) [Mass/Vol]Or dered By: Kailyn Ibrahim on 05-17-2023 MCHC (RBC) [Mass/Vol] 35.2 g/dL 32-36 [facility] Mucus LM Ql (Urine sed)Order ed By: Kailyn Ibrahim on 05-17-2023 Mucus Ql (Urine sed) 0 SEEN /hpf [facility] Nitrite Test strip Ql (U)Ord ered By: Kailyn Ibrahim on 05-17-2023 Nitrite Ql (U) Negative Negative [facility] No Panel InformationOrdered By: Kailyn Ibrahim on 05-17-2023 Estimated GFR (MDRD) Amer 91 mL/min >60 [facility] Comment on above: GFR Calc Estimated GFR (MDRD) Non-Af Amer 75 mL/min >60 [facility] Comment on above: Non- GFR Calc Thyroid Stimulating Hormone (TSH) 2.32 uIU/mL 0.358-3.74 [facility] Platelets bldOrdered By: Darshan Ibrahim on 05-17-2023 Platelets (Bld) [#/Vol] 230 10*3/uL 150-450 [facility] Protein Test strip Ql (U)Ord ered By: Kailyn Ibrahim on 05-17-2023 Protein Ql (U) Negative Negative [facility] Serum or plasma albumin josselin urement (mass/volume)Ordered By: Kailyn Ibrahim on 05-17-2023 Albumin [Mass/Vol] 3.6 g/dL 3.2-5.0 [facility] Serum or plasma albumin/glob ulin mass ratioOrdered By: Kailyn Ibrahim on 05-17-2023 Albumin/Globulin [Mass ratio] 0.9 {ratio} 0.9-2.4 [facility] Serum or plasma calcium josselin urement (mass/volume)Ordered By: Kailyn Ibrahim on 05-17-2023 Calcium [Mass/Vol] 8.8 mg/dL 8.5-10.1 [facility] Serum or plasma creatinine m easurement (mass/volume)Ordered By: Kailyn Ibrahim on 05-17-2023 Creatinine [Mass/Vol] 1.09 mg/dL 0.70-1.30 [facility] Comment on above: The validity of the calculated GFR & GFRAA in patients over 70 years has not been determined. Clinical correlation is essential. Serum or plasma urea nitroge n measurement (mass/volume)Ordered By: Kailyn Ibrahim on 05-17-2023 Urea nitrogen [Mass/Vol] 18 mg/dL 7-18 [facility] Squamous epithelial cells de tection in urine sediment by light microscopyOrdered By: Kailyn Ibrahim on 05-17-2023 Epithelial cells.squamous LM Ql (Urine sed) 0 SEEN /hpf 0-5 [facility] Thin prep Papanicolaou smear with manual screeningOrdered By: Kailyn Ibrahim on 07-12-2023 Thin prep Papanicolaou smear with manual screening 34 U/L 15-37 [facility] Thin prep Papanicolaou smear with manual screening 5 5-15 [facility] Urine blood detectionOrdered By: Kailyn Ibrahim on 05-17-2023 RBC Ql (U) Negative Negative [facility] RBC Ql (U) 0 SEEN /hpf 0-5 [facility] Urine clarityOrdered By: Darshan Ibrahim on 05-17-2023 Clarity (U) Sl. Cloudy Clear [facility] Urine color determinationOrd ered By: Kaiyln Ibrahim on 05-17-2023 Color (U) Yellow Yellow [facility] Urine glucose detectionOrder ed By: Kailyn Ibrahim on 05-17-2023 Glucose Ql (U) Normal mg/dl Normal [facility] Urine leukocyte esterase det ection by dipstickOrdered By: Kailyn Ibrahim on 05-17-2023 Leukocyte esterase Test strip Ql (U) Negative Negative [facility] Urine pHOrdered By: Kailyn watkins on 05-17-2023 pH (U) 6.5 [pH] 5.0 - 8.0 [facility] Urine sediment bacteria coun t by microscopy (number/high power field)Ordered By: Kailyn Ibrahim on 05-17-2023 Bacteria LM.HPF (Urine sed) [#/Area] 0 /[HPF] None Seen [facility] Urine specific gravity measu rementOrdered By: Kailyn Ibrahim on 05-17-2023 Specific gravity (U) [Rel density] 1.020 1.002-1.03 0 [facility] Urobilinogen Auto test strip Ql (U)Ordered By: Kailyn Ibrahim on 05-17-2023 Urobilinogen Ql (U) Normal mg/dl Normal [facility] Basophil percentageon 2021 Basophil percentage 0 SEEN /hpf 0-5 [facility] Work Phone: Bilirubin [Mass/Vol] 0.60 mg/dL 0.20-1.00 [facility] Work Phone: Comment on above: For patients on eltr ombopag therapy, use of Dimension [place] TBIL is not recommended. Chloride [Moles/Vol] 108 mmol/L 98-107 [facility] Work Phone: Cholesterol [Mass/Vol] 171 mg/dL <200 [facility] Work Phone: Comment on above: <200 mg/dL Desirable 200-240 mg/dL Borderline >240 mg/dL High Risk Glucose [Mass/Vol] 94 mg/dL 74-106 [facility] Work Phone: Potassium [Moles/Vol] 3.8 mmol/L 3.5-5.1 Jessica ster [facility] Work Phone: Protein [Mass/Vol] 7.3 g/dL 6.4-8.2 [facility] Work Phone: Sodium [Moles/Vol] 141 mmol/L 136-145 [facility] Work Phone: Triglyceride [Mass/Vol] 106 mg/dL <199 [facility] Work Phone: Comment on above: The drugs N-Acetylcy steine and Metamizole may falsely depress this assay.Serum Triglycerides Reference Interval Normal <150 mg/dL Borderline high 150 - 199 mg/dL High 200 - 499 mg/dL Very High > or = 500 mg/dL Bilirubin Test strip Ql (U)o n 05-20-2022 Bilirubin Ql (U) Negative Negative [facility] Work Phone: Calcium oxalate crystals det ection in urine sediment by light microscopyon 05-20-2022 Calcium oxalate crystals LM Ql (Urine sed) 1+ /hpf [facility] Work Phone: Ketones Test strip Ql (U)on 05-20-2022 Ketones Ql (U) Negative Negative [facility] Work Phone: Laboratory - Chemistry and C hemistry - challengeon 05-20-2022 ALP [Catalytic activity/Vol] 91 U/L 45-117 [facility] Work Phone: ALT [Catalytic activity/Vol] 42 U/L 16-61 [facility] Work Phone: CO2 [Moles/Vol] 27.0 mmol/L 21.0-32.0 [facility] Work Phone: Free T4 [Mass/Vol] 1.10 ng/dL 0.76-1.46 [facility] Work Phone: Globulin (S) [Mass/Vol] 3.5 g/dL 2.2-4.2 [facility] Work Phone: Urea nitrogen/Creatinine [Mass ratio] 16.9 mg/mg 10-20 [facility] Work Phone: Mucus LM Ql (Urine sed)on Mucus Ql (Urine sed) 1+ /hpf [facility] Work Phone: Nitrite Test strip Ql (U)on 05-20-2022 Nitrite Ql (U) Negative Negative [facility] Work Phone: No Panel Informationon 05-20 Estimated GFR (MDRD) Amer 83 mL/min >60 [facility] Work Phone: Comment on above: GFR Calc Estimated GFR (MDRD) Non-Af Amer 69 mL/min >60 [facility] Work Phone: Comment on above: Non- GFR Calc Thyroid Stimulating Hormone (TSH) 1.43 uIU/mL 0.358-3.74 [facility] Work Phone: Protein Test strip Ql (U)on 05-20-2022 Protein Ql (U) Negative Negative [facility] Work Phone: Serum or plasma albumin josselin urement (mass/volume)on 05-20-2022 Albumin [Mass/Vol] 3.8 g/dL 3.2-5.0 [facility] Work Phone: Serum or plasma albumin/glob ulin mass ratioon 05-20-2022 Albumin/Globulin [Mass ratio] 1.1 {ratio} 0.9-2.4 [facility] Work Phone: Serum or plasma calcium josselin urement (mass/volume)on 05-20-2022 Calcium [Mass/Vol] 8.8 mg/dL 8.5-10.1 [facility] Work Phone: Serum or plasma cholesterol in HDL measurement (mass/volume)on 05-20-2022 Cholesterol in HDL [Mass/Vol] 54 mg/dL >40 [facility] Work Phone: Comment on above: The drugs N-Acetylcy steine and Metamizole may falsely depress this assay. Reference Range HDL <40 mg/dL Low HDL Cholesterol HDL >or= 60 mg/dL High HDL Cholesterol Serum or plasma cholesterol in VLDL measurement (mass/volume)on 05-20-2022 Cholesterol in VLDL [Mass/Vol] 21 mg/dL 5-40 [facility] Work Phone: Serum or plasma creatinine m easurement (mass/volume)on 05-20-2022 Creatinine [Mass/Vol] 1.18 mg/dL 0.70-1.30 [facility] Work Phone: Comment on above: The validity of the calculated GFR & GFRAA in patients over 70 years has not been determined. Clinical correlation is essential. Serum or plasma low density lipoprotein (LDL) cholesterol measurement (mass/volume)on 05-20-2022 Cholesterol in LDL [Mass/Vol] 96 mg/dL 0-130 [facility] Work Phone: Serum or plasma urea nitroge n measurement (mass/volume)on 05-20-2022 Urea nitrogen [Mass/Vol] 20 mg/dL 7-18 [facility] Work Phone: Squamous epithelial cells de tection in urine sediment by light microscopyon 05-20-2022 Epithelial cells.squamous LM Ql (Urine sed) 0 SEEN /hpf 0-5 [facility] Work Phone: Thin prep Papanicolaou smear with manual screeningon 05-20-2022 Thin prep Papanicolaou smear with manual screening 26 U/L 15-37 [facility] Work Phone: Thin prep Papanicolaou smear with manual screening 6 -15 [facility] Work Phone: Urine blood detectionon 05-06 RBC Ql (U) Negative Negative [facility] Work Phone: RBC Ql (U) 0 SEEN /hpf 0-5 [facility] Work Phone: Urine clarityon 05-20-2022 Clarity (U) Clear Clear [facility] Work Phone: Urine color determinationon 05-20-2022 Color (U) Yellow Yellow [facility] Work Phone: Urine glucose detectionon Glucose Ql (U) Normal mg/dl Normal [facility] Work Phone: Urine leukocyte esterase det ection by dipstickon 05-20-2022 Leukocyte esterase Test strip Ql (U) Negative Negative [facility] Work Phone: Urine pHon 05-20-2022 pH (U) 5.0 [pH] 5.0 - 8.0 [facility] Work Phone: Urine sediment bacteria coun t by microscopy (number/high power field)on 05-20-2022 Bacteria LM.HPF (Urine sed) [#/Area] RARE /hpf None Seen [facility] Work Phone: Urine specific gravity measu rementon 05-20-2022 Specific gravity (U) [Rel density] 1.025 1.002-1.03 0 [facility] Work Phone: Urobilinogen Auto test strip Ql (U)on 05-20-2022 Urobilinogen Ql (U) Normal mg/dl Normal [facility] Work Phone: Coronavirus (COVID-19/SARS-C oV-2) [facility] 09-29-2020 Device Identifier [employer] Fusion SARS- CoV-2 assay_[employer] EUA Normal [facility] Comment on above: Performed By: #### 6 9405-9 #### [place] [id number] [place] [address] Employed in healthcare [address] Normal [facility] Comment on above: Performed By: #### 6 9405-9 #### [facility] [address] [place] [address] First test N Normal [facility] Comment on above: Performed By: #### 6 9405-9 #### [facility] [address] [place] [address] ICU N [facility] Comment on above: Performed By: #### 6 9405-9 #### [facility] [address] [place] [address] Illness or injury onset date and time N [facility] Comment on above: Performed By: #### 6 9405-9 #### [facility] [address] [place] [address] Patient was hospitalized because of this condition N [facility] Comment on above: Performed By: #### 6 9405-9 #### [facility] [address] [place] [address] status N [facility] Comment on above: Performed By: #### 6 9405-9 #### [facility] [address] [place] [address] Resides in congregate care setting [facility] Comment on above: Performed By: #### 6 9405-9 #### [facility] [address] [place] [address] SARS-CoV-2 NOTDET [facility] Comment on above: Result Comment: This test was performed via the Aptima SARS-CoV-2 Assay (Pandorama), a Nucleic Acid Amplification Test (NAAT), and has been authorized by the FDA under an Emergency Use Authorization (EUA). The assay is validated for nasopharyngeal (SECURITY TECH), nasal, and oropharyngeal (OP) swab specimens. The [...] www.cdc.gov/coronavirus. Performed By: #### 6 9405-9 #### [facility] [address] [place] [address] Symptomatic as defined by CDC N Normal [facility] Comment on above: Performed By: #### 6 9405-9 #### [facility] [address] [place] [address] Basic Metabolic Panelon 11-2 Anion gap [Moles/Vol] 7.0 mmol/L Normal 6.0-18.0 [facility] Comment on above: Performed By: #### 2 4317-0 #### [facility] [address] [place] [address] Calcium [Mass/Vol] 8.6 mg/dL Low 8.9-10.3 [facility] Comment on above: Performed By: #### 2 4317-0 #### [facility] [address] [place] [address] Chloride [Moles/Vol] 105 mmol/L Normal 98-107 [facility] Comment on above: Performed By: #### 2 4317-0 #### [facility] [address] [place] [address] CO2 [Moles/Vol] 26 mmol/L Normal 22-32 [facility] Comment on above: Performed By: #### 2 4317-0 #### [facility] [address] [place] [address] Creatinine [Mass/Vol] 0.96 mg/dL Normal 0.60-1.30 [facility] Comment on above: Performed By: #### 2 4317-0 #### [facility] [address] [place] [address] Glucose [Mass/Vol] 98 mg/dL Normal 70-99 [facility] Comment on above: Result Comment: U pdated ADA Reference Range A normal fasting glucose concentration is less than 100 mg/dL. An impaired fasting glucose concentration is 100-125 mg/dL. A provisional diagnosis of diabetes mellitus can be made when a fasting glucose concentration is greater than 125 mg/dL. Performed By: #### 2 4317-0 #### [facility] [address] [place] [address] Potassium [Moles/Vol] 3.9 mmol/L Normal 3.6-5.1 [facility] Comment on above: Performed By: #### 2 4317-0 #### [facility] [address] [place] [address] Sodium [Moles/Vol] 138 mmol/L Normal 136-145 [facility] Comment on above: Performed By: #### 2 4317-0 #### [facility] [address] [place] [address] Urea nitrogen (BldV) [Mass/Vol] 17 mg/dL Normal 8-20 [facility] Comment on above: Performed By: #### 2 4317-0 #### [facility] [address] [place] [address] [facility] 09-27-2020 Erythrocyte distribution width (RBC) [Entitic vol] 13.1 % Normal 11.0-14.8 [facility] Comment on above: Performed By: #### 2 4317-0 #### [facility] [address] [place] [address] Hematocrit (Bld) [Volume fraction] 37.6 % Low 39.0-49.0 [facility] Comment on above: Performed By: #### 2 4317-0 #### [facility] [address] [place] [address] Hemoglobin (Bld) [Mass/Vol] 12.7 g/dL Low 13.5-17.5 [facility] Comment on above: Performed By: #### 2 4317-0 #### [facility] [address] [place] [address] MCH (RBC) [Entitic mass] 30.8 Picograms Normal 27.0-34.0 [facility] Comment on above: Performed By: #### 2 4317-0 #### [facility] [address] [place] [address] MCHC (RBC) [Mass/Vol] 33.8 g/dL Normal 32.0-36.0 [facility] Comment on above: Performed By: #### 2 4317-0 #### [address] [place] [address] MCV (RBC) [Entitic vol] 91.0 fL Normal 80.0-97.0 [facility] Comment on above: Performed By: #### 2 4317-0 #### [address] [address] Platelet mean volume (Bld) [Entitic vol] 9.6 fL Normal 6.2-12.1 [facility] Comment on above: Performed By: #### 2 4317-0 #### [address] [address] Platelets (Bld) [#/Vol] 241 thou/mcL Normal 142-424 [facility] Comment on above: Performed By: #### 2 4317-0 #### [address] [address] RBC (Bld) [#/Vol] 4.13 million/mcL Low 4.30-5.70 [facility] Comment on above: Performed By: #### 2 4317-0 #### [address] [address] WBC (Bld) [#/Vol] 7.8 thou/mcL Normal 4.6-10.2 [facility] Comment on above: Performed By: #### 2 4317-0 #### [address] [address] GFRaaon 09-27-2020 GFR/1.73 sq M predicted among blacks MDRD (S/P/Bld) [Vol rate/Area] mL/min/{1.73_m2} Normal [facility] Comment on above: Result Comment: The MDRD equation has not been validated for those over 70 years, women, patients with serious co-morbid conditions, or with extremes of body size, muscle mass of nutritional status. Performed By: #### 6 9405-9 #### [address] [place] [address] GFRbbon 09-27-2020 GFR/1.73 sq M predicted among non-blacks MDRD (S/P/Bld) [Vol rate/Area] mL/min/{1.73_m2} Normal [facility] Comment on above: Performed By: #### 6 9405-9 #### [address] [address] Magnesium Levelon 09-27-2020 Magnesium [Mass/Vol] 2.2 mg/dL Normal 1.8-2.5 [facility] Comment on above: Performed By: #### 1 9123-9 #### [address] [address] Patient Summaryon 09-27-2020 Patient Summary PATIENT DISCHARGE INSTRUCTIONS If you are having an emergency and are not able to reach your physician, CALL 911 or go to the nearest emergency room and take this document with you. [facility] 09/27/20 11:[address] [place] [address]. [address] PATIENT INFORMATION ------ Name: VINH COLBY Address: [address] [place] [address] [place] [address] Age: 50 Years Phone: [phone] : 1970 12:00 MRN: [id number] Sex: Male Race: White Ethnicity: Not Hispan/Lat Admitted From: Clinic or [facility]: Surgery Nurse Unit/Bed: ([place]) [facility] 5210-01 Admit Date: 09/22/2020 06:15 PCP: Physician, PCP Unknown PHYSICIANS INVOLVED WITH CARE Attending Physicians: Demarcus Rubio MD - Surgery Admitting Physician: None found Primary Care Physician:Physician, PCP Unknown,Family Practice,,, - Consults: None found FOLLOW-UP APPOINTMENTS: Provider: Specialty: Address: Date: PCP Unknown Physician Family Practice Follow-up as needed Provider: Specialty: Address: Date: Demarcus Rubio MD Surgery [address] [address] (1) 7 to 10 days Comment: Call for an Appointment ALLERGIES: No Known Medication Allergies No Known Allergies MEASUREMENTS: Last Charted: Weight: Admission 99.50 kg /219 lbs 6 oz ( 09/22/20 07:35:00 ) MEDICATIONS For: HIRAMCASSI VINH Wilner This is your list of medication(s). Keep it with you at all times. Your doctor may have changed doses, add, held or stopped some of your medications. Please share this information with your family doctor. Carry this list of medications with you in case of an emergency. Update it when medications are stopped, doses are changed, or new medications (including xtfg-lzs-etqdrav products) are added. Ask your doctor if [...] doctor before taking any supplements, herbal or egho-sxv-jrpuwxm medications. Call your doctor if you have [...] suicide hotline, anytime day or night, at [phone]-YUCD. It's easy to sign up for rag & bone: 1. Visit [email or web address] alth 2. Click on [place] for rag & bone 3. Verify your identity by entering your [...] your account, you'll be redirected to the rag [employer] bone login page. Login and check to see your results Questions? For help with account enrollment, call [employer] Customer Support at [phone] (toll-free) PATIENT EDUCATION Open Hernia Repair, Care [...] prevent this. HOME CARE INSTRUCTIONS ???Only take zwdx-uvi-sldvfff or prescription medicines as directed by your [...] 05/12/2006 Document Revised: 11/13/2015 Document Reviewed: 06/04/2014 [employer] Patient Education ?2016 [employer] [facility] A bulb [...] 10/20/2001 Document Revised: 11/13/2015 Document Reviewed: 03/27/2013 [employer] Patient Education ?2016 [employer] What You Should Know About Opioid Medicine What is an Opioid? Opioid medications are used to treat moderate to severe pain. Morphine, Oxycodone (Percocet?), Hydromorphone (Dilaudid?) and Hydrocodone ([place]?) are some types of opioids. How do Opioids work? Opioids reduce the pain signals sent to your brain, which decrease your feelings of pain. Opioids may reduce your pain, but may not take all the pain away. What are the risks from taking opioids? Prescription opioids carry serious risks of physical dependence, addiction and overdose, with assistant terminal manager use. If you take too much of [...] _ Clinician Signature ____ Date/Time __ Normal [facility] Phosphorus Levelon 0 Phosphate [Moles/Vol] 3.4 mg/dL Normal 2.4-4.7 [facility] Comment on above: Performed By: #### 6 9405-9 #### [facility] [address] [place] [address] Basic Metabolic Panelon 09-07 Anion gap [Moles/Vol] 5.0 mmol/L Low 6.0-18.0 [facility] Comment on above: Performed By: #### 6 9405-9 #### [facility] [address] [place] [address] Calcium [Mass/Vol] 8.2 mg/dL Low 8.9-10.3 [facility] Comment on above: Performed By: #### 6 9405-9 #### [facility] [address] [place] [address] Chloride [Moles/Vol] 106 mmol/L Normal 98-107 [facility] Comment on above: Performed By: #### 6 9405-9 #### [facility] [address] [place] [address] CO2 [Moles/Vol] 27 mmol/L Normal 22-32 [facility] Comment on above: Performed By: #### 6 9405-9 #### [facility] [address] [place] [address] Creatinine [Mass/Vol] 0.95 mg/dL Normal 0.60-1.30 [facility] Comment on above: Performed By: #### 6 9405-9 #### [facility] [address] [place] [address] Glucose [Mass/Vol] 97 mg/dL Normal 70-99 [facility] Comment on above: Result Comment: U pdated ADA Reference Range A normal fasting glucose concentration is less than 100 mg/dL. An impaired fasting glucose concentration is 100-125 mg/dL. A provisional diagnosis of diabetes mellitus can be made when a fasting glucose concentration is greater than 125 mg/dL. Performed By: #### 6 9405-9 #### [facility] [address] [place] [address] Potassium [Moles/Vol] 4.3 mmol/L Normal 3.6-5.1 [facility] Comment on above: Performed By: #### 6 9405-9 #### [facility] [address] [place] [address] Sodium [Moles/Vol] 138 mmol/L Normal 136-145 [facility] Comment on above: Performed By: #### 6 9405-9 #### [facility] [address] [place] [address] Urea nitrogen (BldV) [Mass/Vol] 16 mg/dL Normal 8-20 [facility] Comment on above: Performed By: #### 6 9405-9 #### [address] [address] CBCon 09-26-2020 Erythrocyte distribution width (RBC) [Entitic vol] 13.1 % Normal 11.0-14.8 [facility] Comment on above: Performed By: #### 2 4317-0 #### [address] [address] Hematocrit (Bld) [Volume fraction] 36.0 % Low 39.0-49.0 [facility] Comment on above: Performed By: #### 2 4317-0 #### [address] [address] Hemoglobin (Bld) [Mass/Vol] 11.9 g/dL Low 13.5-17.5 [facility] Comment on above: Performed By: #### 2 4317-0 #### [address] [address] MCH (RBC) [Entitic mass] 30.2 Picograms Normal 27.0-34.0 [facility] Comment on above: Performed By: #### 2 4317-0 #### [address] [address] MCHC (RBC) [Mass/Vol] 33.1 g/dL Normal 32.0-36.0 [facility] Comment on above: Performed By: #### 2 4317-0 #### [address] [address] MCV (RBC) [Entitic vol] 91.4 fL Normal 80.0-97.0 [facility] Comment on above: Performed By: #### 2 4317-0 #### [address] [address] Platelet mean volume (Bld) [Entitic vol] 9.5 fL Normal 6.2-12.1 [facility] Comment on above: Performed By: #### 2 4317-0 #### [address] [place] [address] Platelets (Bld) [#/Vol] 212 thou/mcL Normal 142-424 [facility] Comment on above: Performed By: #### 2 4317-0 #### [address] [address] RBC (Bld) [#/Vol] 3.94 million/mcL Low 4.30-5.70 [facility] Comment on above: Performed By: #### 2 4317-0 #### [address] [address] WBC (Bld) [#/Vol] 9.1 thou/mcL Normal 4.6-10.2 [facility] Comment on above: Performed By: #### 2 4317-0 #### [address] [address] Magnesium Levelon 09-26-2020 Magnesium [Mass/Vol] 2.1 mg/dL Normal 1.8-2.5 [facility] Comment on above: Performed By: #### 2 4321-2 #### [address] [address] Phosphorus Levelon 0 Phosphate [Moles/Vol] 3.1 mg/dL Normal 2.4-4.7 [facility] Comment on above: Performed By: #### 2 4321-2 #### [address] [address] Basic Metabolic Panelon 09-07 0 Anion gap [Moles/Vol] 3.0 mmol/L Low 6.0-18.0 [facility] Comment on above: Performed By: #### 6 9405-9 #### [address] [address] Calcium [Mass/Vol] 8.0 mg/dL Low 8.9-10.3 [facility] Comment on above: Performed By: #### 6 9405-9 #### [address] [address] Chloride [Moles/Vol] 105 mmol/L Normal 98-107 [facility] Comment on above: Performed By: #### 6 9405-9 #### [facility] [address] [place] [address] CO2 [Moles/Vol] 31 mmol/L Normal 22-32 [facility] Comment on above: Performed By: #### 6 9405-9 #### [facility] [address] [place] [address] Creatinine [Mass/Vol] 1.09 mg/dL Normal 0.60-1.30 [facility] Comment on above: Performed By: #### 6 9405-9 #### [address] [place] [address] Glucose [Mass/Vol] 99 mg/dL Normal 70-99 [facility] Comment on above: Result Comment: U pdated ADA Reference Range A normal fasting glucose concentration is less than 100 mg/dL. An impaired fasting glucose concentration is 100-125 mg/dL. A provisional diagnosis of diabetes mellitus can be made when a fasting glucose concentration is greater than 125 mg/dL. Performed By: #### 6 9405-9 #### [address] [place] [address] Potassium [Moles/Vol] 4.3 mmol/L Normal 3.6-5.1 [facility] Comment on above: Performed By: #### 6 9405-9 #### [address] [place] [address] Sodium [Moles/Vol] 139 mmol/L Normal 136-145 [facility] Comment on above: Performed By: #### 6 9405-9 #### [facility] [address] [facility] [place] [address] Urea nitrogen (BldV) [Mass/Vol] 16 mg/dL Normal 8-20 [facility] Comment on above: Performed By: #### 6 9405-9 #### [facility] [address] [place] [address] CBCon 09-25-2020 Erythrocyte distribution width (RBC) [Entitic vol] 13.2 % Normal 11.0-14.8 [facility] Comment on above: Performed By: #### 2 4317-0 #### [facility] [address] [place] [address] Hematocrit (Bld) [Volume fraction] 36.5 % Low 39.0-49.0 [facility] Comment on above: Performed By: #### 2 4317-0 #### [address] [place] [address] Hemoglobin (Bld) [Mass/Vol] 11.9 g/dL Low 13.5-17.5 [facility] Comment on above: Performed By: #### 2 4317-0 #### [address] [place] [address] MCH (RBC) [Entitic mass] 30.3 Picograms Normal 27.0-34.0 [facility] Comment on above: Performed By: #### 2 4317-0 #### [address] [place] [address] MCHC (RBC) [Mass/Vol] 32.6 g/dL Normal 32.0-36.0 [facility] Comment on above: Performed By: #### 2 4317-0 #### [address] [address] MCV (RBC) [Entitic vol] 92.9 fL Normal 80.0-97.0 [facility] Comment on above: Performed By: #### 2 4317-0 #### [facility] [address] [place] [address] Platelet mean volume (Bld) [Entitic vol] 9.6 fL Normal 6.2-12.1 [facility] Comment on above: Performed By: #### 2 4317-0 #### [facility] [address] [place] [address] Platelets (Bld) [#/Vol] 181 thou/mcL Normal 142-424 [facility] Comment on above: Performed By: #### 2 4317-0 #### [facility] [address] [place] [address] RBC (Bld) [#/Vol] 3.93 million/mcL Low 4.30-5.70 [facility] Comment on above: Performed By: #### 2 4317-0 #### [facility] [address] [place] [address] WBC (Bld) [#/Vol] 9.7 thou/mcL Normal 4.6-10.2 [facility] Comment on above: Performed By: #### 2 4317-0 #### [facility] [address] [place] [address] GFRaaon 09-25-2020 GFR/1.73 sq M predicted among blacks MDRD (S/P/Bld) [Vol rate/Area] mL/min/{1.73_m2} Normal [facility] Comment on above: Result Comment: The MDRD equation has not been validated for those over 70 years, women, patients with serious co-morbid conditions, or with extremes of body size, muscle mass of nutritional status. Performed By: #### 6 9405-9 #### [facility] [address] [facility] [place] [address] GFRbbon 09-25-2020 GFR/1.73 sq M predicted among non-blacks MDRD (S/P/Bld) [Vol rate/Area] mL/min/{1.73_m2} Normal [facility] Comment on above: Performed By: #### 2 4321-2 #### [facility] [address] [facility] [place] [address] Magnesium Levelon 09-25-2020 Magnesium [Mass/Vol] 2.0 mg/dL Normal 1.8-2.5 [facility] Comment on above: Performed By: #### 6 9405-9 #### [facility] [address] [facility] [place] [address] Phosphorus Levelon 0 Phosphate [Moles/Vol] 2.8 mg/dL Normal 2.4-4.7 [facility] Comment on above: Performed By: #### 2 4321-2 #### [facility] [address] [place] [address] Basic Metabolic Panelon 09-06 Anion gap [Moles/Vol] 5.0 mmol/L Low 6.0-18.0 [facility] Comment on above: Performed By: #### 6 9405-9 #### [facility] [address] [place] [address] Calcium [Mass/Vol] 8.2 mg/dL Low 8.9-10.3 [facility] Comment on above: Performed By: #### 6 9405-9 #### [facility] [address] [place] [address] Chloride [Moles/Vol] 104 mmol/L Normal 98-107 [facility] Comment on above: Performed By: #### 6 9405-9 #### [facility] [address] [place] [address] CO2 [Moles/Vol] 31 mmol/L Normal 22-32 [facility] Comment on above: Performed By: #### 6 9405-9 #### [facility] [address] [place] [address] Creatinine [Mass/Vol] 1.19 mg/dL Normal 0.60-1.30 [facility] Comment on above: Performed By: #### 6 9405-9 #### [facility] [address] [place] [address] Glucose [Mass/Vol] 98 mg/dL Normal 70-99 [facility] Comment on above: Result Comment: U pdated ADA Reference Range A normal fasting glucose concentration is less than 100 mg/dL. An impaired fasting glucose concentration is 100-125 mg/dL. A provisional diagnosis of diabetes mellitus can be made when a fasting glucose concentration is greater than 125 mg/dL. Performed By: #### 6 9405-9 #### [facility] [address] [place] [address] Potassium [Moles/Vol] 4.2 mmol/L Normal 3.6-5.1 [facility] Comment on above: Performed By: #### 6 9405-9 #### [facility] [address] [place] [address] Sodium [Moles/Vol] 140 mmol/L Normal 136-145 [facility] Comment on above: Performed By: #### 6 9405-9 #### [facility] [address] [place] [address] Urea nitrogen (BldV) [Mass/Vol] 19 mg/dL Normal 8-20 [facility] Comment on above: Performed By: #### 6 9405-9 #### [facility] [address] [place] [address] CBCon 09-24-2020 Erythrocyte distribution width (RBC) [Entitic vol] 13.2 % Normal 11.0-14.8 [facility] Comment on above: Performed By: #### 2 4321-2 #### [address] [place] [address] Hematocrit (Bld) [Volume fraction] 37.2 % Low 39.0-49.0 [facility] Comment on above: Performed By: #### 2 4321-2 #### [facility] [address] [place] [address] Hemoglobin (Bld) [Mass/Vol] 12.3 g/dL Low 13.5-17.5 [facility] Comment on above: Performed By: #### 2 4321-2 #### [facility] [address] [place] [address] MCH (RBC) [Entitic mass] 30.8 Picograms Normal 27.0-34.0 [facility] Comment on above: Performed By: #### 2 4321-2 #### [facility] [address] [place] [address] MCHC (RBC) [Mass/Vol] 33.1 g/dL Normal 32.0-36.0 [facility] Comment on above: Performed By: #### 2 4321-2 #### [facility] [address] [place] [address] MCV (RBC) [Entitic vol] 93.2 fL Normal 80.0-97.0 [facility] Comment on above: Performed By: #### 2 4321-2 #### [address] [place] [address] Platelet mean volume (Bld) [Entitic vol] 9.9 fL Normal 6.2-12.1 [facility] Comment on above: Performed By: #### 2 4321-2 #### [address] [address] Platelets (Bld) [#/Vol] 181 thou/mcL Normal 142-424 [facility] Comment on above: Performed By: #### 2 4321-2 #### [address] [address] RBC (Bld) [#/Vol] 3.99 million/mcL Low 4.30-5.70 [facility] Comment on above: Performed By: #### 2 4321-2 #### [address] [address] WBC (Bld) [#/Vol] 10.5 thou/mcL High 4.6-10.2 [facility] Comment on above: Performed By: #### 2 4321-2 #### [address] [address] Magnesium Levelon 09-24-2020 Magnesium [Mass/Vol] 2.0 mg/dL Normal 1.8-2.5 [facility] Comment on above: Performed By: #### 6 9405-9 #### [address] [address] Phosphorus Levelon 0 Phosphate [Moles/Vol] 1.9 mg/dL Low 2.4-4.7 [facility] Comment on above: Performed By: #### 2 4321-2 #### [address] [address] Basic Metabolic Panelon 09-06 Anion gap [Moles/Vol] 3.0 mmol/L Low 6.0-18.0 [facility] Comment on above: Performed By: #### 2 4321-2 #### [facility] [address] [place] [address] Calcium [Mass/Vol] 8.6 mg/dL Low 8.9-10.3 [facility] Comment on above: Performed By: #### 2 4321-2 #### [facility] [address] [place] [address] Chloride [Moles/Vol] 106 mmol/L Normal 98-107 [facility] Comment on above: Performed By: #### 2 4321-2 #### [facility] [address] [place] [address] CO2 [Moles/Vol] 30 mmol/L Normal 22-32 [facility] Comment on above: Performed By: #### 2 4321-2 #### [facility] [address] [place] [address] Creatinine [Mass/Vol] 1.62 mg/dL High 0.60-1.30 [facility] Comment on above: Performed By: #### 2 4321-2 #### [facility] [address] [place] [address] Glucose [Mass/Vol] 103 mg/dL High 70-99 [facility] Comment on above: Result Comment: U pdated ADA Reference Range A normal fasting glucose concentration is less than 100 mg/dL. An impaired fasting glucose concentration is 100-125 mg/dL. A provisional diagnosis of diabetes mellitus can be made when a fasting glucose concentration is greater than 125 mg/dL. Performed By: #### 2 4321-2 #### [facility] [address] [place] [address] Potassium [Moles/Vol] 4.6 mmol/L Normal 3.6-5.1 [facility] Comment on above: Performed By: #### 2 4321-2 #### [facility] [address] [place] [address] Sodium [Moles/Vol] 139 mmol/L Normal 136-145 [facility] Comment on above: Performed By: #### 2 4321-2 #### [facility] [address] [place] [address] Urea nitrogen (BldV) [Mass/Vol] 25 mg/dL High 8-20 [facility] Comment on above: Performed By: #### 2 4321-2 #### [facility] [address] [place] [address] Anion gap [Moles/Vol] 3.0 mmol/L Low 6.0-18.0 [facility] Comment on above: Performed By: #### 2 4321-2 #### [facility] [address] [place] [address] Calcium [Mass/Vol] 8.3 mg/dL Low 8.9-10.3 [facility] Comment on above: Performed By: #### 2 4321-2 #### [facility] [address] [place] [address] Chloride [Moles/Vol] 107 mmol/L Normal 98-107 [facility] Comment on above: Performed By: #### 2 4321-2 #### [facility] [address] [place] [address] CO2 [Moles/Vol] 27 mmol/L Normal 22-32 [facility] Comment on above: Performed By: #### 2 4321-2 #### [facility] [address] [place] [address] Creatinine [Mass/Vol] 2.38 mg/dL High 0.60-1.30 [facility] Comment on above: Performed By: #### 2 4321-2 #### [facility] [address] [place] [address] Glucose [Mass/Vol] 123 mg/dL High 70-99 [facility] Comment on above: Result Comment: U pdated ADA Reference Range A normal fasting glucose concentration is less than 100 mg/dL. An impaired fasting glucose concentration is 100-125 mg/dL. A provisional diagnosis of diabetes mellitus can be made when a fasting glucose concentration is greater than 125 mg/dL. Performed By: #### 2 4321-2 #### [facility] [address] [place] [address] Potassium [Moles/Vol] 5.0 mmol/L Normal 3.6-5.1 [facility] Comment on above: Performed By: #### 2 4321-2 #### [facility] [address] [facility] [place] [address] Sodium [Moles/Vol] 137 mmol/L Normal 136-145 [facility] Comment on above: Performed By: #### 2 4321-2 #### [facility] [address] [facility] [place] [address] Urea nitrogen (BldV) [Mass/Vol] 31 mg/dL High 8-20 [facility] Comment on above: Performed By: #### 2 4321-2 #### [facility] [address] [facility] [place] [address] CBCon 09-23-2020 Erythrocyte distribution width (RBC) [Entitic vol] 13.9 % Normal 11.0-14.8 [facility] Comment on above: Performed By: #### 2 4317-0 #### [address] [place] [address] Hematocrit (Bld) [Volume fraction] 39.5 % Normal 39.0-49.0 [facility] Comment on above: Performed By: #### 2 4317-0 #### [facility] [address] [place] [address] Hemoglobin (Bld) [Mass/Vol] 12.8 g/dL Low 13.5-17.5 [facility] Comment on above: Performed By: #### 2 4317-0 #### [facility] [address] [place] [address] MCH (RBC) [Entitic mass] 30.3 Picograms Normal 27.0-34.0 [facility] Comment on above: Performed By: #### 2 4317-0 #### [facility] [address] [place] [address] MCHC (RBC) [Mass/Vol] 32.4 g/dL Normal 32.0-36.0 [facility] Comment on above: Performed By: #### 2 4317-0 #### [id number] [place] [address] MCV (RBC) [Entitic vol] 93.6 fL Normal 80.0-97.0 [facility] Comment on above: Performed By: #### 2 4317-0 #### [address] [address] Platelet mean volume (Bld) [Entitic vol] 9.5 fL Normal 6.2-12.1 [facility] Comment on above: Performed By: #### 2 4317-0 #### [address] [address] Platelets (Bld) [#/Vol] 211 thou/mcL Normal 142-424 [facility] Comment on above: Performed By: #### 2 4317-0 #### [address] [address] RBC (Bld) [#/Vol] 4.22 million/mcL Low 4.30-5.70 [facility] Comment on above: Performed By: #### 2 4317-0 #### [address] [address] WBC (Bld) [#/Vol] 14.6 thou/mcL High 4.6-10.2 [facility] Comment on above: Performed By: #### 2 4317-0 #### [address] [address] GFRaaon 09-23-2020 GFR/1.73 sq M predicted among blacks MDRD (S/P/Bld) [Vol rate/Area] 35 mL/min/{1.73_m2} Normal [facility] Comment on above: Result Comment: The MDRD equation has not been validated for those over 70 years, women, patients with serious co-morbid conditions, or with extremes of body size, muscle mass of nutritional status. Performed By: #### 2 4317-0 #### [facility] [address] [place] [address] GFRbbon 09-23-2020 GFR/1.73 sq M predicted among non-blacks MDRD (S/P/Bld) [Vol rate/Area] 29 mL/min/{1.73_m2} Normal [facility] Comment on above: Performed By: #### 2 4321-2 #### [facility] [address] [facility] [place] [address] Magnesium Levelon 09-23-2020 Magnesium [Mass/Vol] 1.9 mg/dL Normal 1.8-2.5 [facility] Comment on above: Performed By: #### 6 9405-9 #### [facility] [address] [facility] [place] [address] OR Nursingon 09-23-2020 OR Nursing CO GH OR Nursing Rec ord Summary Primary Physician: Demarcus Rubio MD Finalized Date/Time: 09/23/20 07:25:20 Pt. Name: VINH COLBY/Sex: 1970 Male Med Rec #: [id number] Physician: Financial #: [id number] Pt. Type: A Room/Bed: [address] [place] [address] Admit/Disch: 09/22/20 06:15:00 - Institution: [facility] [...] By: Carol Cosby RN 09/22/20 09:04:18 [facility] OR Case Attendees Entry 1 Entry 2 Entry 3 Case Attendee Demarcus Rubio MD, RN, Dawn M Cooper RN , Franklyn Ta Role Performed Primary Surgeon surveyor chain helper First Scrub Time In 09/22/20 08:48:00 09/22/20 08:48:00 11/17/20 08:48:00 Time Out 09/22/20 13:15:00 09/22/20 13:15:00 09/22/20 13:15:00 Procedure Repair Hernia Repair Hernia Repair Hernia Ventral(N/A), Removal Ventral(N/A), Removal Ventral(N/A), Removal Foreign Body(N/A) Foreign Body(N/A) Foreign Body(N/A) Attendee Comment Relief Reason Last Modified By: Henok RN Amrita RN , Amrita Gibbons RN 09/23/20 07:23:00 09/23/20 07:23:00 09/23/20 07:23:00 Entry 4 Entry 5 Entry [address] CRNA, DO , Austin Orellana MD , Maxim Role Performed Nurse Guest Services Coordinator Resident Anesthesiologist Time In 09/22/20 08:48:00 09/22/20 08:48:00 09/22/20 08:48:00 Time Out 09/22/20 13:15:00 09/22/20 13:15:00 09/22/20 13:15:00 Procedure Repair Hernia Repair Hernia Repair Hernia Ventral(N/A), Removal Ventral(N/A), Removal Ventral(N/A), Removal Foreign Body(N/A) Foreign Body(N/A) Foreign Body(N/A) Attendee Comment Relief Reason Last Modified By: Amrita Whiting RN RN , Amrita Whiting RN , Amrita Garcia 09/23/20 07:23:00 09/23/20 07:23:00 09/23/20 07:23:00 Entry 7 Case Attendee Naya Virgen RN Role Performed RN Time In 09/22/20 11:10:00 Time Out 09/22/20 12:40:00 Procedure Repair Hernia Ventral(N/A), Removal Foreign Body(N/A) Attendee Comment Relief Reason Lunch Last Modified By: Amrita Whiting RN 09/23/20 07:23:00 CO [facility] OR General Case Armament Installer 1 OR [facility] 06 ASA Class [...] CARR URINE METER DRAIN ROUND HUBLESS 16FR [id number] 15FR FULL FLUTED VIRGIE [id number] Present on Arrival? No No Location BLADDER [...] Size Knee Pneumatic Compression Unit ID Number [id number] GINNA Hose Foot Pump Last Modified By: [...] and Settings Type Monopolar Unit ID Number [id number] Grounding Pad Thigh left lateral Location Last Modified By: Carol Cosby RN 09/22/20 08:43:24 [facility] OR Irrigation Entry 1 Irrigant 0.9% Saline Irrigant Volume 1000 mL Last Modified By: Carol Cosby RN 09/22/20 08:43:34 [facility] OR Specimens Entry 1 Specimen Description 1. HERNIA SAC -PERMANENT Last Modified By: Carol Cosby RN 09/22/20 13:30:08 [facility] OR Implants Entry 1 Entry 2 Procedure Repair Hernia Repair Hernia Ventral(N/A), Removal Ventral(N/A), Removal Foreign Body(N/A) Foreign Body(N/A) Implant/Explant Implant Implant Wasted Reason Provided by Surgeon No No Implant Identification Description [id number] covidien GRAFT TISS ALLODERM RTU progrip mesh [id number] THICK [id number] Mediation Commissioner covidipatricia ALLERGAN Catalog Number [id number] Lot Number [id number] Serial Number [id number] N/A 1 Implant Site abdomen [id number] Quantity 1 1 Expiration Date 03/05/25 No Expiration Date No No Unique Device Indent (MAKAYLA) Human Readable Machine Readable Manufactured Date Tissue Tissue Implanted No Yes Material Used to N/A 0.9% NACL LOT: Prepare/Process [id number] EXP: Tissue 04/05/2023 Processed By: Brian PALENCIA , Franklyn Ta Last Modified By: Henok PALENCIA , Amrita Gibbons RN 09/23/20 07:23:03 09/23/20 07:23:03 General Comments: CATALOG NUMBER ADDED S LYNNE PALENCIA CO [facility] OR Counts Entry 1 Entry 2 Entry 3 Instrument Count Initial Count Done 1st count correct N/A Surgeon Notified of No Yes Yes Count Sponge Count Initial Count Done 1st count correct 2nd count correct X-ray Taken No No No Sharps/Miscellaneous Initial Count Done 1st count correct 2nd count correct Count RN Performing Count Alea RN , Carol Cosby RN , Carol Cosby RN , Carol Darby Count Performed with Brian RN , Franklyn Torres RN , Franklyn Torres RN , Franklyn Ta Comment Procedure Repair Hernia Repair Hernia Repair Hernia Ventral(N/A), Removal Ventral(N/A), Removal Ventral(N/A), Removal Foreign Body(N/A) Foreign Body(N/A) Foreign Body(N/A) Last Modified By: Henok PALENCIA , Amrita Whiting RN , Amrita Gibbons RN 09/23/20 07:23:04 09/23/20 07:23:04 09/23/20 07:23:04 CO [facility] OR Dressing/Packing Entry 1 Entry 2 Dressing Dressing/Packing SPONGE GAUZE 4X4 2PK DRESSING MEDPORE Type [id number] 3.6X12IN [id number] Dressing/Packing Site Tape Medipore Tape 4 in Dressing/Packing Comment Last Modified By: Alea PALENCIA , Carol Nicole RN 09/22/20 13:09:34 09/22/20 13:09:34 CO [facility] OR Temperature Regulation Entry 1 Unit ID [id number] Site UPPER BODY Warm blankets, Warm fluids, Increased Room Temp Last Modified By: Carol Cosby RN 09/22/20 08:43:55 CO [facility] OR Final Count Entry 1 Sponges Correct Yes Sharps/Miscellaneous Yes Correct Instruments Correct n/a Count Performed with Brian PALENCIA , Franklyn Ta RN Performing Count Carol [...] SURGICAL PROCEDURE ADDED PER OPERATIVE REPORT ROSETTA PALENCIALUNCHROOM OPERATOR PERFORMED CHANGED PER OPERATIVE REPORT ROSETTA PALENCIA Case Comments Finalized By: Amrita Whiting RN Document Signatures Signed By: Carol Cosby RN 09/22/20 13:30 Amrita Whiting RN 09/23/20 07:24 Radhika Minor RN 09/22/20 14:15 Amrita Whiting RN 09/23/20 07:25 Normal [facility] Phosphorus Levelon 0 Phosphate [Moles/Vol] 3.8 mg/dL Normal 2.4-4.7 [facility] Comment on above: Performed By: #### 2 4321-2 #### [facility] [address] [place] [address] Antibody Screen Interpretati onon 09-22-2020 Interpretation and review of laboratory results Negative Normal NEGATIVE-N EGATIVE [facility] Comment on above: Performed By: #### C D:[id number] #### [facility] Blood Type ABO and Rh(D)on 11-22-2019 ABO and Rh group Nom (Bld) OPOS Normal [facility] Comment on above: Performed By: #### 6 9405-9 #### [facility] [address] [place] [address] Glucose POCT (Uploaded)on Glucose [Mass/Vol] 94 mg/dL Normal 70-99 [facility] Comment on above: Result Comment: Nika tment ranges and critical values established by Patient Care Services. All follow-up actions were taken by Patient Care Services. Performed By: #### C D:[id number] #### [facility] PACU I Nursingon 09-22-2020 PACU I Nursing CO [facility] OR PACU I Nurs ing Record Summary Primary Physician: Demarcus Rubio MD Finalized Date/Time: 09/22/20 15:41:48 Pt. Name: VINH COLBY/Sex: 1970 Male Med Rec #: [id number] Physician: Financial #: [id number] Pt. Type: A Room/Bed: / Admit/Disch: 09/22/20 06:15:00 - Institution: CO [facility] OR PACU I Case Times Entry 1 In PACU I 09/22/20 13:16:00 Ready for PACU I 09/22/20 15:30:00 Discharge Discharge from PACU 09/22/20 15:38:00 PACU I Discharge Transporter unavailable I Delay Reason Last Modified By: Moreno Orosco RN 09/22/20 15:41:40 [facility] OR PACU I Case Attendees Entry 1 Case Attendee Moreno Orosco RN Role Performed RN Last Modified By: Moreno Orosco RN 09/22/20 15:41:06 Finalized By: Moreno Orosco RN Document Signatures Signed By: Moreno Orosco RN 09/22/20 15:41 [facility] PreOp Nursingon 09-22-2020 PreOp Nursing CO [facility] OR PreOp Nursi ng Record Summary Primary Physician: Demarcus Rubio MD Finalized Date/Time: 09/22/20 13:59:46 Pt. Name: ALLA COLBYMichelle Gutierrez/Sex: 1970 Male Med Rec #: [id number] Physician: Financial #: [id number] Pt. Type: A Room/Bed: / Admit/Disch: 09/22/20 [...] Signed By: Radhika Minor RN 09/22/20 13:59 [facility] Coronavirus (COVID-19/SARS-C oV-2) [facility] 09-19-2020 Device Identifier [employer] Fusion SARS- CoV-2 assay_[employer] 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 Comment on above: Performed By: #### 2 4317-0 #### [facility] [address] [place] [address] First test N [facility] Comment on above: Performed By: #### 2 4317-0 #### [facility] [address] [place] [address] ICU N [facility] Comment on above: Performed By: #### 2 4317-0 #### [facility] [address] [place] [address] Illness or injury onset date and time N [facility] Comment on above: Performed By: #### 2 4317-0 #### [facility] [address] [place] [address] Patient was hospitalized because of this condition [facility] Comment on above: Performed By: #### 2 4317-0 #### [facility] [address] [place] [address] status N [facility] Comment on above: Performed By: #### 2 4317-0 #### [facility] [address] [place] [address] Resides in congregate care setting [facility] Comment on above: Performed By: #### 2 4317-0 #### [facility] [address] [place] [address] SARS-CoV-2 NOTDET [facility] Comment on above: Result Comment: This test was performed via the Aptima SARS-CoV-2 Assay (Pandorama), a Nucleic Acid Amplification Test (NAAT), and has been authorized by the FDA under an Emergency Use Authorization (EUA). The assay is validated for nasopharyngeal (SECURITY TECH), nasal, and oropharyngeal (OP) swab specimens. The [...] www.cdc.gov/coronavirus. Performed By: #### 2 4317-0 #### [facility] [address] [place] [address] Symptomatic as defined by CDC 1117 [facility] Comment on above: Performed By: #### 2 4317-0 #### [facility] [address], [place] [address] Antibody Screen Interpretati onon 09-16-2020 Interpretation and review of laboratory results Negative Normal NEGATIVE-N EGATIVE [facility] Comment on above: Performed By: #### C [id number] #### [facility] Basic Metabolic Panelon 09-06 Anion gap [Moles/Vol] 4.0 mmol/L Low 6.0-18.0 [facility] Comment on above: Performed By: #### 2 4321-2 #### [facility] [address] [place] [address] Calcium [Mass/Vol] 9.3 mg/dL Normal 8.9-10.3 [facility] Comment on above: Performed By: #### 2 4321-2 #### [facility] [address] [place] [address] Chloride [Moles/Vol] 108 mmol/L High 98-107 [facility] Comment on above: Performed By: #### 2 4321-2 #### [facility] [address] [place] [address] CO2 [Moles/Vol] 26 mmol/L Normal 22-32 [facility] Comment on above: Performed By: #### 2 4321-2 #### [facility] [address] [place] [address] Creatinine [Mass/Vol] 0.99 mg/dL Normal 0.60-1.30 [facility] Comment on above: Performed By: #### 2 4321-2 #### [facility] [address] [place] [address] Glucose [Mass/Vol] 74 mg/dL Normal 70-99 [facility] Comment on above: Result Comment: U pdated ADA Reference Range A normal fasting glucose concentration is less than 100 mg/dL. An impaired fasting glucose concentration is 100-125 mg/dL. A provisional diagnosis of diabetes mellitus can be made when a fasting glucose concentration is greater than 125 mg/dL. Performed By: #### 2 4321-2 #### [facility] [address] [place] [address] Potassium [Moles/Vol] 3.7 mmol/L Normal 3.6-5.1 [facility] Comment on above: Performed By: #### 2 4321-2 #### [facility] [address] [place] [address] Sodium [Moles/Vol] 138 mmol/L Normal 136-145 [facility] Comment on above: Performed By: #### 2 4321-2 #### [facility] [address] [place] [address] Urea nitrogen (BldV) [Mass/Vol] 15 mg/dL Normal 8-20 [facility] Comment on above: Performed By: #### 2 4321-2 #### [facility] [address] [place] [address] Blood Type ABO and Rh(D)on 11-16-2019 ABO and Rh group Nom (Bld) OPOS Normal [facility] Comment on above: Performed By: #### 8 82-1 #### [facility] [address] [place] CBCon 09-16-2020 Erythrocyte distribution width (RBC) [Entitic vol] 12.9 % Normal 11.0-14.8 [facility] Comment on above: Performed By: #### C [id number] #### [facility] Hematocrit (Bld) [Volume fraction] 47.9 % Normal 39.0-49.0 [facility] Comment on above: Performed By: #### C [id number] #### [facility] Hemoglobin (Bld) [Mass/Vol] 16.7 g/dL Normal 13.5-17.5 [facility] Comment on above: Performed By: #### C [id number] #### [facility] MCH (RBC) [Entitic mass] 30.7 Picograms Normal 27.0-34.0 [facility] Comment on above: Performed By: #### C [id number] #### [facility] MCHC (RBC) [Mass/Vol] 34.9 g/dL Normal 32.0-36.0 [facility] Comment on above: Performed By: #### C [id number] #### [facility] MCV (RBC) [Entitic vol] 88.1 fL Normal 80.0-97.0 [facility] Comment on above: Performed By: #### C [id number] #### [facility] Platelet mean volume (Bld) [Entitic vol] 9.5 fL Normal 6.2-12.1 [facility] Comment on above: Performed By: #### C [id number] #### [facility] Platelets (Bld) [#/Vol] 246 thou/mcL Normal 142-424 [facility] Comment on above: Performed By: #### C [id number] #### [facility] RBC (Bld) [#/Vol] 5.44 million/mcL Normal 4.30-5.70 [facility] Comment on above: Performed By: #### C [id number] #### [facility] WBC (Bld) [#/Vol] 7.3 thou/mcL Normal 4.6-10.2 [facility] Comment on above: Performed By: #### C [id number] #### [facility] GFRaaon 09-16-2020 GFR/1.73 sq M predicted among blacks MDRD (S/P/Bld) [Vol rate/Area] mL/min/{1.73_m2} Normal [facility] Comment on above: Result Comment: The MDRD equation has not been validated for those over 70 years, women, patients with serious co-morbid conditions, or with extremes of body size, muscle mass of nutritional status. Performed By: #### 6 9405-9 #### [facility] [address] [facility] 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 Normal appendix. [place] thanks you for the opportunity to care for your patient. Workstation ID: [id number] FINAL REPORT Dictated By: Nuno Cruz MD 01/10/2020 12:54 Assigned Physician: Nuno Cruz MD Reviewed and Electronically Signed By: Nuno Cruz MD 01/10/2020 13:06 Transcribed by: TUSHAR 01/10/2020 12:54 Technologist: ESTELA Rocha [facility] Creatinine POCT [facility] Creatinine [Mass/Vol] 1.2 mg/dL Normal 0.6-1.3 [facility] Comment on above: Performed By: #### C [id number] #### [facility] CT SINUS [...] osseous erosion or destructive pattern is apparent. [employer] Workstation ID: [id number] Dictated by: EARLENE YI on MonAug 16, 2019 3:41:09 PM EDT Transcribed by: ANISA GOINS on MonAug 16, 2019 3:51:02 PM EDT Finalized by: EARLENE YI on MonAug 16, 2019 4:15:[address] [facility] Comment on above: Order Comment: Injur y/Trauma [...] osseous erosion or destructive pattern is apparent. [employer] Workstation ID: [id number] [facility] EXAMINATION: CT SINU S STEALTH WITHOUT [...] Temporomandibular joints are seen and appear satisfactory. [facility] Interface, Rad In Fu ji Speechq [...] osseous erosion or destructive pattern is apparent. [employer] Workstation ID: [id number] [facility] POC Urinalysis Dipstickon Bilirubin Ql (U) Negative Negative [facility] Glucose Ql (U) Negative Normal, Negative mg/dL [facility] Hemoglobin Ql (U) Negative Negative [facility] Interpretation and review of laboratory results Normal [facility] Ketones Ql (U) Negative Negative mg/dL [facility] Leukocyte esterase Test strip Ql (U) Negative Negative [facility] Nitrite Ql (U) Negative Negative [facility] pH (U) 5.5 [pH] [facility] Protein Ql (U) Negative Negative mg/dL [facility] Specific gravity (U) [Rel density] 1.020 [facility] Urobilinogen Qn (U) <2.0 <2.0, 0. 2, Normal, Negative, 1.0, 2.0, <1.0 mg/dL [facility] BMPon 10-27-2018 Anion gap 3 molar [...] Neutrophils Auto #/vol (Bld) 7.56 10*3/uL High [facility] Neutrophils/100 WBC Auto (Bld) 66.7 % [...] RBC Auto #/vol (Bld) 6.02 10*6/uL High [facility] WBC Auto #/vol (Bld) 11.33 10*3/uL [...] Normal appendix and unremarkable abdominal gas pattern. [employer] Workstation ID: [id number] Invalid Interpretation Code [employer] [facility] EXAMINATION: CT KIDN EY STONE HISTORY: [...] The appendix is normal. Invalid Interpretation Code [employer] 1. There is a small punctate nonobstructive [...] pattern. [facility]/[employer] Workstation ID: [id number] Invalid Interpretation Code [employer] ECG 12-LEADon 10-27-2018 Wilner Farah 10/27/2018 11:07 [...] mass conc (U) 50 Abnormal Negative mg/dL [facility] Hemoglobin Automated test strip Ql (U) Negative Invalid Interpretation Code Negative LAB Hyaline casts Auto #/area (Urine sed) 0-2 Invalid Interpretation Code 0 - 2 /lpf LAB Interpretation and review of laboratory results Abnormal Invalid Interpretation Code LAB Ketones mass conc (U) Negative Invalid [...] Procedure Abnormality Status --------- ------ CBC Auto Differential[[id number]] Normal Final result Please view results for these tests on the individual orders. Invalid Interpretation Code [facility] Work Phone: POC Influenza A/Bon 11-13-19 18 Interpretation and review of laboratory results Abnormal Invalid Interpretation Code [facility] Work Phone: Rapid Influenza A/B Ag Positive Abnormal Negative [facility] Work Phone: Vital Signs Date Time Vital Sign Value Performing Clinician Jhoana gann 01-10-2020 08:30-0500 BMI (Body Mass Index) 35.45 kg/m2 [facility] 01-10-2020 08:30-0500 Body Temperature 99.19 [degF] [facility] 01-10-2020 08:30-0500 Body weight 96.62 kg [facility] 01-10-2020 08:30-0500 BP Diastolic 78 mm[Hg] [facility] 01-10-2020 08:30-0500 BP Systolic 116 mm[Hg] [facility] 01-10-2020 08:30-0500 Height 165.1 cm [facility] 01-10-2020 08:30-0500 Pulse (Heart Rate) 66 /min [facility] 01-10-2020 08:30-0500 Pulse Oximetry 98 % [facility] 12-11-2019 16:08-0500 Body Temperature 97.9 [degF] [facility] 12-11-2019 16:08-0500 BP Diastolic 81 mm[Hg] [facility] 12-11-2019 16:08-0500 BP Systolic 133 mm[Hg] [facility] 12-11-2019 16:08-0500 Pulse (Heart Rate) 80 /min [facility] 12-11-2019 16:08-0500 Pulse Oximetry 99 % [facility] 12-11-2019 16:08-0500 Respiratory Rate 14 /min [facility] 10-11-2019 08:05-0500 Body Temperature 98.49 [degF] [facility] 10-11-2019 08:05-0500 Pulse (Heart Rate) 85 /min [facility] 10-11-2019 08:05-0500 Pulse Oximetry 93 % [facility] 08-16-2019 08:29-0400 BMI (Body Mass Index) 35.28 kg/m2 [facility] 08-16-2019 08:29-0400 Body Temperature 98.2 [degF] [facility] 08-16-2019 08:29-0400 Body weight 96.16 kg Kailyn Looney [facility] 08-16-2019 08:29-0400 BP Diastolic 82 mm[Hg] Kailyn Looney [facility] 08-16-2019 08:29-0400 BP Systolic 126 mm[Hg] Kailyn Looney [facility] 08-16-2019 08:29-0400 Height 165.1 cm [facility] 08-16-2019 08:29-0400 Pulse (Heart Rate) 80 /min [facility] 08-16-2019 08:29-0400 Pulse Oximetry 96 % [facility] 07-19-2019 08:51-0400 BP Diastolic 72 mm[Hg] [facility] 07-19-2019 08:51-0400 BP Systolic 120 mm[Hg] [facility] 07-19-2019 08:29-0400 BMI (Body Mass Index) 35.28 kg/m2 [facility] 07-19-2019 08:29-0400 Body Temperature 98.2 [degF] [facility] 07-19-2019 08:29-0400 Body weight 96.16 kg [facility] 07-19-2019 08:29-0400 Height 165.1 cm [facility] 07-19-2019 08:29-0400 Pulse (Heart Rate) 77 /min [facility] 07-19-2019 08:29-0400 Pulse Oximetry 96 % [facility] 04-05-2019 10:33-0400 BMI (Body Mass Index) 35.61 kg/m2 [facility] 04-05-2019 10:33-0400 Body Temperature 98.4 [degF] [facility] 04-05-2019 10:33-0400 BP Diastolic 79 mm[Hg] [facility] 04-05-2019 10:33-0400 BP Systolic 117 mm[Hg] [facility] 04-05-2019 10:33-0400 Height 165.1 cm [facility] 04-05-2019 10:33-0400 Pulse (Heart Rate) 87 /min [facility] 04-05-2019 10:33-0400 Pulse Oximetry 95 % Kailyn Looney [facility] 04-05-2019 10:33-0400 Weight 97.07 kg Kailyn Looney [facility] 03-15-2019 12:03-0400 BP Diastolic 94 mm[Hg] Kailyn Looney [facility] 03-15-2019 12:03-0400 BP Systolic 142 mm[Hg] [facility] 03-15-2019 11:01-0400 BMI (Body Mass Index) 35.61 kg/m2 Kailyn Aayush [facility] 03-15-2019 11:01-0400 Body Temperature 98.29 [degF] [facility] 03-15-2019 11:01-0400 Height [facility].1 cm [facility] 03-15-2019 11:01-0400 Pulse (Heart Rate) 77 /min [facility] 03-15-2019 11:01-0400 Pulse [facility]ximetry 98 % [facility] 03-15-2019 11:01-0400 Weight 97.07 kg [facility] 01-11-2019 07:59-0500 BMI (Body Mass Index) 35.11 kg/m2 [facility] 01-11-2019 07:59-0500 Body Temperature 97.59 [degF] [facility] 01-11-2019 07:59-0500 BP Diastolic 100 mm[Hg] [facility] 01-11-2019 07:59-0500 BP Systolic 154 mm[Hg] [facility] 01-11-2019 07:59-0500 Height 165.1 cm [facility] 01-11-2019 07:59-0500 Pulse (Heart Rate) 84 /min [facility] 01-11-2019 07:59-0500 Pulse Oximetry 98 % Kailyn Looney [facility] 01-11-2019 07:59-0500 Weight 95.71 kg Kailyn Looney [facility] 12-14-2018 10:59-0500 BMI (Body Mass Index) 35.78 kg/m2 [facility] 12-14-2018 10:59-0500 Body Temperature 97.59 [degF] Kailyn Looney [facility] 12-14-2018 10:59-0500 BP Diastolic 100 mm[Hg] Kailyn Looney [facility] 12-14-2018 10:59-0500 BP Systolic 144 mm[Hg] Kailyn Looney [facility] 12-14-2018 10:59-0500 Height 165.1 cm Kailyn Looney [facility] 12-14-2018 10:59-0500 Pulse (Heart Rate) 67 /min Kailyn Looney [facility] 12-14-2018 10:59-0500 Pulse Oximetry 98 % Kailyn Looney [facility] 12-14-2018 10:59-0500 Weight 97.52 kg [facility] 11-02-2018 11:42-0500 BMI (Body Mass Index) 35.61 kg/m2 [facility] 11-02-2018 11:42-0500 Body Temperature 99.19 [degF] [facility] 11-02-2018 11:42-0500 BP Diastolic 100 mm[Hg] [facility] 11-02-2018 11:42-0500 BP Systolic 140 mm[Hg] [facility] 11-02-2018 11:42-0500 Height 165.1 cm [facility] 11-02-2018 11:42-0500 Pulse (Heart Rate) 80 /min [facility] 11-02-2018 11:42-0500 Pulse Oximetry 98 % [facility] 11-02-2018 11:42-0500 Weight 97.07 kg [facility] 10-28-2018 02:30-0500 BP Diastolic 90 mm[Hg] Chetan Juarez [facility] 10-28-2018 02:30-0500 BP Systolic 166 mm[Hg] [facility] 10-28-2018 02:30-0500 Pulse (Heart Rate) 83 /min [facility] 10-28-2018 02:30-0500 Pulse Oximetry 97 % Chetan [facility] 10-28-2018 02:30-0500 Respiratory Rate 14 /min [facility] 10-27-2018 22:34-0500 BMI (Body Mass Index) 34.45 kg/m2 Chetan [facility] 10-27-2018 22:34-0500 Body Temperature 99.3 [degF] Chetan Juarez [facility] 10-27-2018 22:34-0500 Height 165.1 cm Chetan Juarez [facility] 10-27-2018 22:34-0500 Weight 93.89 kg Chetan Juarez [facility] 10-27-2018 18:00-0500 BP Diastolic 99 mm[Hg] Leslie Chung [facility] 10-27-2018 18:00-0500 BP Systolic 171 mm[Hg] Leslie Chung [facility] 10-27-2018 18:00-0500 Pulse (Heart Rate) 77 /min [facility] 10-27-2018 18:00-0500 Pulse Oximetry 93 % [facility] Cuhng [facility] 10-27-2018 17:30-0500 Respiratory Rate 16 /min [facility] Sheldon [facility] 10-27-2018 15:56-0500 BMI (Body Mass Index) 35.53 kg/m2 [facility] 10-27-2018 15:56-0500 Body Temperature 98.01 [degF] [facility] Chung [facility] 10-27-2018 15:56-0500 Height 162.6 cm [facility] 10-27-2018 15:56-0500 Weight 93.89 kg [facility] Chung [facility] 08-31-2018 10:36-0400 BMI (Body Mass Index) 35.01 kg/m2 [facility] 08-31-2018 10:36-0400 Body Temperature 98.71 [degF] [facility] 08-31-2018 10:36-0400 BP Diastolic 88 mm[Hg] [facility] 08-31-2018 10:36-0400 BP Systolic 144 mm[Hg] [facility] 08-31-2018 10:36-0400 Height 165.1 cm [facility] 08-31-2018 10:36-0400 Pulse (Heart Rate) 81 /min [facility] 08-31-2018 10:36-0400 Pulse Oximetry 94 % [facility] 08-31-2018 10:36-0400 Weight 95.44 kg Kailyn Looney [facility] 05-25-2018 09:03-0400 BMI (Body Mass Index) 36.44 kg/m2 Kailyn Looney [facility] 05-25-2018 09:03-0400 Body Temperature 98.91 [degF] Kailyn Looney [facility] 05-25-2018 09:03-0400 BP Diastolic 80 mm[Hg] Kailyn Looney [facility] 05-25-2018 09:03-0400 BP Systolic 128 mm[Hg] Kailyn Looney [facility] 05-25-2018 09:03-0400 Height 165.1 cm Kailyn Looney [facility] 05-25-2018 09:03-0400 Pulse (Heart Rate) 71 /min Kailyn Looney [facility] 05-25-2018 09:03-0400 Pulse Oximetry 98 % Kailyn Looney [facility] 05-25-2018 09:03-0400 Weight 99.34 kg Kailyn Looney [facility] 12-15-2017 09:18-0500 BMI (Body Mass Index) 34.45 kg/m2 Kailyn Looney [facility] Work Phone: 12-15-2017 09:18-0500 Body Temperature 98.01 [degF] Kailyn Looney [facility] Work Phone: 12-15-2017 09:18-0500 BP Diastolic 86 mm[Hg] Kailyn Looney [facility] Work Phone: 12-15-2017 09:18-0500 BP Systolic 124 mm[Hg] Kailyn Looney [facility] Work Phone: 12-15-2017 09:18-0500 Height 165.1 cm Kailyn Looney [facility] Work Phone: 12-15-2017 09:18-0500 Pulse (Heart Rate) 71 /min Kailyn Looney [facility] Work Phone: 12-15-2017 09:18-0500 Pulse Oximetry 98 % Kailyn Looney [facility] Work Phone: 12-15-2017 09:18-0500 Weight 93.89 kg Kailyn Looney [facility] Work Phone: 11-13-2017 12:57-0500 BMI (Body Mass Index) 34.28 kg/m2 [facility]: 11-13-2017 12:57-0500 Body Temperature 99.19 [degF] [facility]: 11-13-2017 12:57-0500 BP Diastolic 80 mm[Hg] [facility]: 11-13-2017 12:57-0500 BP Systolic 122 mm[Hg] [facility]: 11-13-2017 12:57-0500 Height 165.1 cm [facility] Work [facility]: 11-13-2017 12:57-0500 Pulse (Heart Rate) 76 /min [facility]: 11-13-2017 12:57-0500 Pulse Oximetry 98 % [facility] Work [facility]: 11-13-2017 12:57-0500 Weight 93.44 kg [facility] Work Phone: 08-18-2017 11:10-0400 BMI (Body Mass Index) 34.28 kg/m2 [facility] Work Phone: 08-18-2017 11:10-0400 Body Temperature 98.6 [degF] [facility] Work [facility]: 08-18-2017 11:10-0400 BP Diastolic 80 mm[Hg] [facility] Work [facility]: 08-18-2017 11:10-0400 BP Systolic 124 mm[Hg] [facility] Work Phone: 08-18-2017 11:10-0400 Height 165.1 cm [facility] [employer] [employer] Work Phone: 08-18-2017 11:10-0400 Pulse (Heart Rate) 79 /min Kailyn Looney [facility] Work Phone: 08-18-2017 11:10-0400 Pulse Oximetry 98 % Kailyn Looney [facility] Work Phone: 08-18-2017 11:10-0400 Weight 93.44 kg Kailyn Looney [facility] Work Phone: Encounters Encounter Date Encounter Type Care Provider Facility Start: 05-29-2025 End: 05-29-[address] Kailyn Ibrahim MD Work Phone: -Laboratory Start: 05-29-2025 End: 05-29-[address] Kailyn Ibrahim MD -Laboratory Work Phone: Start: 05-29-2025 End: 05-29-2025 ambulatory Kailyn Ibrahim Facility:[facility] Start: 11-28-2024 End: 11-28-2024 [facility] Start: 08-30-2024 End: 08-30-2024 ambulatory [facility] Facility:[facility] Start: 07-04-2024 End: 07-04-2024 [facility] Start: 05-17-2023 End: 05-17-2023 ambulatory [facility] Work Phone: Start: 05-17-2023 End: 05-17-2023 Patient encounter procedure [facility] Start: 12-12-2022 ambulatory [facility] Start: 05-20-2022 End: 05-20-2022 Patient encounter procedure [facility] Start: 01-19-2021 End: 01-19-2021 Orders Only Talita Jesus Work Phone: [facility] Start: 05-12-2020 End: 05-12-2020 Patient encounter procedure [facility] Start: 01-17-2020 Patient encounter procedure KAILYN LOONEY Start: 01-10-2020 End: 01-10-2020 Periodic preventive med est patient 40-64yrs Kailyn Looney Work Phone: [facility] Comment on above: Physical exam (Prima ry Dx); Diabetes mellitus screening; Lipid screening; Prostate cancer screening Start: 01-07-2020 End: 01-07-2020 Postop follow up visit related to original px Earlene Cowan Work Phone: [facility] Comment on above: Hypertrophy of both inferior nasal turbinates (Primary Dx); Nasal obstruction without choanal atresia; History of nasal septoplasty Start: 12-31-2019 End: 12-31-2019 Postop follow up visit related to original px Earlene Cowan Work Phone: [facility] Comment on above: Hypertrophy of both inferior nasal turbinates (Primary Dx); Nasal obstruction without choanal atresia; History of nasal septoplasty; Chronic rhinitis Start: 12-24-2019 End: 12-24-2019 Postop follow up visit related to original px Earlene Cowan Work Phone: [facility] Comment on above: Hypertrophy of both inferior nasal turbinates (Primary Dx); Nasal obstruction without choanal atresia; History of nasal septoplasty Start: 12-17-2019 End: 12-17-2019 Postop follow up visit related to original px Earlene Cowan Work Phone: [facility] Comment on above: DNS (deviated nasal septum) (Primary Dx); Hypertrophy of both inferior nasal turbinates; Nasal obstruction without choanal atresia; History of nasal septoplasty Start: 12-13-2019 End: 12-13-2019 Postop follow up visit related to original px Earlene Cowan Work Phone: [facility] Comment on above: DNS (deviated nasal septum) (Primary Dx); Hypertrophy of both inferior nasal turbinates; Nasal obstruction without choanal atresia; History of nasal septoplasty Start: 12-11-2019 End: 12-11-2019 [facility] Start: 12-11-2019 End: 12-11-2019 Subsequent hospital visit by physician Earlene Cowan Work Phone: [facility] Comment on above: Acute post-operative pain (Primary Dx); Nasal obstruction without choanal atresia; Deviated septum; Injury of nose, sequela; Hypertrophy of both inferior nasal turbinates Start: 11-29-2019 End: 11-29-2019 [facility] Start: 10-11-2019 End: 10-11-2019 Office outpatient visit 15 minutes Earlene Cowan Work Phone: [facility] Comment on above: DNS (deviated nasal septum) (Primary Dx); Hypertrophy of both inferior nasal turbinates; Nasal obstruction without choanal atresia Start: 08-23-2019 End: 08-27-2019 Patient encounter procedure KAILYN LOONEY Start: 08-16-2019 End: 08-17-2019 [facility] Start: 08-16-2019 End: 08-16-2019 Subsequent hospital visit by physician Earlene Cowan Work Phone: [facility] CT Scan Comment on above: Deviated nasal septu m; Chronic sinusitis, unspecified location Start: 08-16-2019 End: 08-16-2019 Office outpatient visit 25 minutes Kailyn Looney Work Phone: [facility] Comment on above: Erectile dysfunction , unspecified erectile dysfunction type (Primary Dx); Urinary frequency; Hypertension, essential; Hypertriglyceridemia; Androgen deficiency; Motion sickness, initial encounter Start: 07-19-2019 End: 07-19-2019 Office outpatient visit 25 minutes Kailyn Looney Work Phone: [facility] Comment on above: Hypertension, essent ial (Primary Dx); Trigger middle finger of left hand; Hypertriglyceridemia; Need for hepatitis A immunization Start: 04-05-2019 End: 04-05-2019 Office outpatient visit 10 minutes Kailyn Looney Work Phone: [facility] Comment on above: Hypertension, essent ial (Primary Dx); Erectile dysfunction, unspecified erectile dysfunction type Start: 03-15-2019 End: 03-15-2019 Office outpatient visit 15 minutes Kailyn Looney Work Phone: [facility] Comment on above: Elevated blood press ure reading with diagnosis of hypertension Start: 01-11-2019 End: 01-11-2019 Office outpatient visit 25 minutes Kailyn Looney Work Phone: [facility] Comment on above: Elevated blood press ure reading in office with diagnosis of hypertension (Primary Dx); Witnessed episode of apnea; Habitual snoring Start: 12-14-2018 End: 12-14-2018 Periodic preventive med est patient 40-64yrs Kailyn Looney Work Phone: [facility] Comment on above: Physical exam (Prima ry Dx); Diabetes mellitus screening; Prostate cancer screening; Lipid screening; Medication side effect; Hypertension, essential Start: 11-02-2018 End: 11-02-2018 Office outpatient visit 25 minutes Kailyn Alvagabbytanvi Work Phone: [facility] Comment on above: Acute left-sided low back pain without sciatica (Primary Dx); Hypertension, essential Start: 10-27-2018 End: 10-28-2018 Emergency department patient visit Chetan Juarez Work Phone: [facility] Emergency Department Comment on above: Musculoskeletal back pain (Primary Dx) Start: 10-27-2018 End: 10-27-2018 Emergency department patient visit Leslie Michael Sheldon Work Phone: [facility] Emergency Department Comment on above: Left flank pain (Ghada ezio Dx); Elevated blood pressure reading; Hypertension, unspecified type Start: 08-31-2018 End: 08-31-2018 Office outpatient visit 25 minutes Kailyn Alvagabbytanvi Work Phone: [facility] Comment on above: Hypertension, essent ial (Primary Dx); Erectile dysfunction, unspecified erectile dysfunction type; Hypertriglyceridemia; Androgen deficiency Start: 05-25-2018 End: 05-25-2018 Office outpatient visit 15 minutes Kailyn Looney Work Phone: [facility] Start: 12-15-2017 Prev visit, est, age 40-64 Darshan n Gregg Looney Work Phone: [facility] Start: 11-13-2017 Office/outpatient vi sit, est, level 3 Kailyn Looney Work Phone: [facility] Start: 08-18-2017 Office outpatient vi sit 15 minutes Kailyn Looney Work Phone: [facility] Procedures Date Procedure Procedure Detail Performing Clinician Start: 05-29-2025 Urnls dip stick/tabl et reagent auto microscopy Dr. Kailyn Ibrahim MD Work Phone: Start: 05-15-2020 Colonoscopy Talita hills Start: 08-16-2019 [...] 10-27-2018 End: 10-27-2018 CT of urinary tract Leslei Chung Work Phone: Start: 10-27-2018 End: 10-27-2018 [...] 05-15-2030 Screening for malignant neoplasm of colon [facility] Start: 01-16-2022 Prostate specific antigen measurement PSA Level [facility] Start: 01-09-2021 History and physical examination, annual for health maintenance Wellness Visit [facility] Start: 03-20-2020 End: 03-20-2020 Office Visit 03/20/2020 Office Visit Otolaryngology Earlene Cowan, DO [address] [facility] [address] [place] [address] [phone] [facility] Start: 02-08-2020 Administration of herpes zoster vaccine Zoster Vaccines (1 of 2) [facility] Start: 02-08-2020 Screening for malignant neoplasm of colon [facility] Start: 01-12-2020 Depression screening using PHQ-9 (Patient Health Questionnaire 9) score DEPRESSION SCREENING (PHQ9) [facility] Start: 01-12-2020 Screening for substance abuse SUBSTANCE ABUSE SCREENING (AUDIT-C) [facility] Start: 01-10-2020 End: 01-10-2020 Office Visit 01/10/2020 Office Visit Primary Care Kailyn Looney, DO [address] [facility] [address] [place] [address] [phone] [facility] Start: 01-07-2020 End: 01-07-2020 Follow-Up 01/07/2020 Follow-Up Otolaryngology Earlene Cowan, DO [address] [facility] [address] [place] [address] [phone] [facility] Start: 12-31-2019 End: 12-31-2019 Follow-Up 12/31/2019 Follow-Up Otolaryngology Earlene Cowan, DO [address] [facility] [address] [place] [address] [phone] [facility] Start: 12-25-2019 End: 12-25-2019 Clinical Support 12/25/2019 Clinical Support Otolaryngology Anisa Villaseñor AuD [facility] Start: 12-24-2019 End: 12-24-2019 Follow-Up 12/24/2019 Follow-Up Otolaryngology Earlene Cowan, DO [address] [facility] [address] [place] [address] [phone] [facility] Start: 12-17-2019 End: 12-17-2019 Follow-Up 12/17/2019 Follow-Up Otolaryngology Earlene Cowan, DO [address] [facility] [address] [place] [address] [phone] [facility] Start: 12-14-2019 History and physical examination, annual for health maintenance Wellness Visit [facility] Start: 12-13-2019 End: 12-13-2019 Follow-Up 12/13/2019 Follow-Up Otolaryngology Earlene Cowan, DO [address] [facility] [address] [place] [address] [phone] [facility] Start: 09-06-2019 End: 09-06-2019 Office Visit 09/06/2019 Office Visit Primary Care Kailyn Looney, DO [address] [facility] [address] [place] [address] [phone] [facility] Start: 08-23-2019 End: 08-23-2019 Office Visit 08/23/2019 Office Visit Otolaryngology Leslie Buck, DO [address] [facility] [address] [place] [address] [phone] [facility] Start: 08-02-2019 End: 08-02-2019 Office Visit 08/02/2019 Office Visit Otolaryngology Earlene Cowan, DO [address] [facility] [address] [place] [address] [phone] [facility] Start: 07-07-2019 Influenza vaccination given [facility] Start: 04-05-2019 End: 04-05-2019 Office Visit 04/05/2019 Office Visit Primary Care Kailyn Looney DO [address] [address] [phone] [facility] Start: 02-22-2019 End: 02-22-2019 Office Visit 02/22/2019 Office Visit Primary Care Kailyn Looney DO [address] [facility] [address] [place] [address] [phone] [facility] Start: 01-11-2019 End: 01-11-2019 Office Visit 01/11/2019 Office Visit Primary Care Kailyn Looney DO [address] [address] [phone] [facility] Start: 12-15-2018 Adult depression screening assessment DEPRESSION SCREENING (PHQ9) [facility] Start: 12-15-2018 Depression screening using PHQ-9 (Patient Health Questionnaire 9) score DEPRESSION SCREENING (PHQ9) [facility] Start: 12-15-2018 Screening for substance abuse SUBSTANCE ABUSE SCREENING (AUDIT-C) [facility] Start: 12-15-2018 SUBSTANCE ABUSE SCREENING (AUDIT-C) SUBSTANCE ABUSE SCREENING (AUDIT-C) [facility] Start: 12-14-2018 End: 12-14-2018 Ambulatory 12/14/2018 Office Visit Primary Care Kailyn Looney DO [address] [address] [phone] [facility] Start: 07-07-2018 Influenza vaccination SEQUENTIAL INFLUENZA VACCINE (#1) [facility] Start: 07-07-2018 Influenza vaccination given SEQUENTIAL INFLUENZA VACCINE (#1) [facility] Start: 07-07-2017 Influenza vaccination SEQUENTIAL INFLUENZA VACCINE (#1) [facility] Work Phone: Start: 02-08-1988 Hepatitis C antibody, confirmatory test Hepatitis C Screening [facility] Start: 1986 COVID-19 Vaccine (1 of 2) COVID-19 Vaccine (1 of 2) [facility] Start: 1985 HIV screening HIV Screening [facility] Start: 1982 Adolescent depression screening assessment Depression Screening (PHQ9) [facility] Start: 1970 Prostate specific antigen measurement PSA Level [facility] Start: 1970 Tetanus vaccination [facility] Work Phone: End: 08-16-2020 Bacteria identified Aer cx Nom (Unsp spec) Urine Aerobic Culture Microbiology Routine Urinary frequency 1 Occurrences starting 08/16/2019 until 08/16/2020 [facility] Comment on above: 1 Occurrences starting 08/16/2019 until 08/16/2020 Bacteria identified Aer cx Nom (Unsp spec) Urine Aerobic Culture Microbiology Routine Urinary frequency 08/16/2019 9:30 AM EDT [facility] End: 12-15-2019 Complete blood count with white cell differential, manual CBC and Differential Routine Physical exam 1 Occurrences starting 12/14/2018 until 12/15/2019 [facility] Comment on above: 1 Occurrences starting 12/14/2018 until 12/15/2019 Complete blood count with white cell differential, manual CBC and Differential Routine Physical exam 12/14/2018 11:54 AM EST [facility] End: 01-10-2021 Complete blood count with white cell differential, manual CBC and Differential Lab Routine Physical exam 1 Occurrences starting 01/10/2020 until 01/10/2021 [facility] Comment on above: 1 Occurrences starting 01/10/2020 until 01/10/2021 End: 08-16-2020 Complete blood count with white cell differential, manual CBC and Differential Lab Routine Hypertension, essential 1 Occurrences starting 08/16/2019 until 08/16/2020 [facility] Comment on above: 1 Occurrences starting 08/16/2019 until 08/16/2020 End: 12-15-2019 Comprehensive metabolic 2000 panel Comprehensive Metabolic Panel Routine Physical exam 1 Occurrences starting 12/14/2018 until 12/15/2019 [facility] Comment on above: 1 Occurrences starting 12/14/2018 until 12/15/2019 End: 01-10-2021 Comprehensive metabolic 2000 panel Comprehensive Metabolic Panel Lab Routine Physical exam 1 Occurrences starting 01/10/2020 until 01/10/2021 [facility] Comment on above: 1 Occurrences starting 01/10/2020 until 01/10/2021 End: 08-16-2020 Comprehensive metabolic 2000 panel Comprehensive Metabolic Panel Lab Routine Hypertension, essential 1 Occurrences starting 08/16/2019 until 08/16/2020 [facility] Comment on above: 1 Occurrences starting 08/16/2019 until 08/16/2020 End: 12-16-2018 Comprehensive metabolic panel [AGGREGATE] Comprehensive Metabolic Panel Routine Physical exam 1 Occurrences starting 12/15/2017 until 12/16/2018 [facility] Work Phone: Comprehensive metabo lic panel [AGGREGATE] [facility] Work Phone: CT Angiogram Aorta Chest Abdomen Pelvis CT Angiogram Aorta Chest Abdomen Pelvis GERSON 10/28/2018 12:26 AM EST [facility] End: 12-16-2018 HbA1c Hemoglobin A1c Routine Diabetes mellitus screening 1 Occurrences starting 12/15/2017 until 12/16/2018 [facility] Work Phone: HbA1c [facility] Work Phone: End: 01-10-2021 HbA1c (Bld) [Mass fraction] Hemoglobin A1c Lab Routine Diabetes mellitus screening 1 Occurrences starting 01/10/2020 until 01/10/2021 [facility] Comment on above: 1 Occurrences starting 01/10/2020 until 01/10/2021 End: 12-15-2019 Hemoglobin A1c/Hemoglobin.total mass fraction (Bld) Hemoglobin A1c Routine Diabetes mellitus screening 1 Occurrences starting 12/14/2018 until 12/15/2019 [facility] Comment on above: 1 Occurrences starting 12/14/2018 until 12/15/2019 End: 12-15-2019 Lipid 1996 panel Lipid Panel Routine Lipid screening 1 Occurrences starting 12/14/2018 until 12/15/2019 [facility] Comment on above: 1 Occurrences starting 12/14/2018 until 12/15/2019 Lipid 1996 panel Lipid Panel Rou maryjo Lipid screening 12/14/2018 11:54 AM EST [facility] End: 01-10-2021 Lipid 1996 panel Lipid Panel Lab Routine Lipid screening 1 Occurrences starting 01/10/2020 until 01/10/2021 [facility] Comment on above: 1 Occurrences starting 01/10/2020 until 01/10/2021 End: 08-16-2020 Lipid 1996 panel Lipid Panel Lab Routine Hypertriglyceridemia 1 Occurrences starting 08/16/2019 until 08/16/2020 [facility] Comment on above: 1 Occurrences starting 08/16/2019 until 08/16/2020 End: 12-16-2018 Lipid panel Lipid Panel Routine Lipid screening 1 Occurrences starting 12/15/2017 until 12/16/2018 [facility] Work Phone: Lipid panel Lipid Panel Rout ine Lipid screening 12/15/2017 10:08 AM EST [facility] Work Phone: Procedure on tissue specimen [facility] Comment on above: Release Upon Ordering for 1 Occurrences starting 12/11/2019, 1 completed End: 01-09-2021 Prostate specific Ag [Mass/Vol] PSA, Screen Lab Routine Prostate cancer screening 1 Occurrences starting 01/10/2020 until 01/09/2021 [facility] Comment on above: 1 Occurrences starting 01/10/2020 until 01/09/2021 End: 08-16-2020 Testosterone Free [Mass/Vol] Testosterone, Total and Free (Calculated) Lab Routine Androgen deficiency 1 Occurrences starting 08/16/2019 until 08/16/2020 [facility] Comment on above: 1 Occurrences starting 08/16/2019 until 08/16/2020 Immunizations Immunization Date Immunization Notes Care Provider Zulema piper 08-13-2019 Influenza, injectabl e, Madin Heather Canine Kidney, preservative free, quadrivalent Earlene Klapchar [facility] 07-19-2019 hepatitis A vaccine, adult dosage Abbie hn Cocumelli [facility] 07-19-2019 hepatitis A vaccine, unspecified formulation Kailyn Cocumelli [facility] 02-15-2019 hepatitis A vaccine, adult dosage Abbie hn Cocumelli [facility] 01-16-2019 hepatitis A vaccine, adult dosage Prince arellano Klapchar [facility] 08-18-2017 influenza, injectabl e, quadrivalent, preservative free Earlene Klapchar [facility] 07-26-2016 influenza, injectabl e, quadrivalent, preservative free Earlene Klapchar [facility] Payers Date Payer Category Payer Self-pay [id number] 2024 Unknown [id number] 2015 Unknown [id number] 2015 Unknown xxxxxxxxx [id number] 2015 Unknown [facility] HMO/BAPTISTE CE PLUS/EFREM/EFREM PLUS [id number] 2015-Present [id number] 1970 Unknown [id number] [id number] 02 1970 Unknown [id number] [id number] 02 1970 Unknown [id number] 2.16.840.1.802197.3.579.2.9 02 1970 Unknown [id number] 2.16.840.1.080492.3.579.2.9 00 1970 Unknown [id number] 2.16.840.1.438079.3.579.2.9 00 1970 Unknown [id number] 2.16.840.1.833647.3.579.2.9 00 1970 Unknown [id number] [id number] 03 Private Health Insurance [id number] Unknown [id number] [id number] 62 Unknown [id number] 2.16.840.1.479157.3.579.2.4 62 Unknown [id number] 2.16.840.1.023910.3.579.2.4 62 Unknown [id number] [id number] 62 Social History Date Type Detail Facility Start: 12-15-2017 End: 08-16-2019 Tobacco smoking status MAIS Never smoker [facility] Work Phone: Sex Assigned At Not on file [facility] Work Phone: Start: 01-01-2016 Alcohol Comment [facility] Start: 07-19-2019 End: 08-16-2019 Alcohol intake Current drinker of alcohol (finding) [facility] Start: 07-19-2019 History SDOH Social Connections Phone 5 [facility] Start: 07-19-2019 History SDOH Food Worry 1 [facility] Start: 08-28-2020 Tobacco use and exposure Never used [facility] Start: 1970 Sex Assigned At Male [facility] Tobacco smoking stat [facility] Unknown if ever smoked [facility] Work Phone: Medical Equipment Procedure Code Equipment Code Equipment Origin al Text Equipment Identifier Dates Hemostat 4 X 8in Surgicel - Sn/A [id number] Start: 12-11-2019 Evaluation note Note Date & Type Note Facility Evaluation note No assessment information availa ble [facility] Work Phone: Reason for referral (narrative) Note Date & Type Note Facility Reason for referral (narrative) No reason for referral information available [facility] Work Phone: Assessments Note Patient: VINH COLBY Wilner Darby RN: (COL)-[id number] Age: 50 years Sex: Male : 1970 [...] - / (SS) RUTHY L (subq): - / (SS) PHYSICAL EXAM: GEN: (more content not [...] your doctor if you can take an sdyj-lpv-cudqttl pain medicine, such as acetaminophen (Tylenol), ibuprofen [...] Log into your personal health record on [email or web address] and enter S191 in the Education box to learn more about Flank Pain: Care Instructions. Current as of: July 29, 2018 Content Version: 11.9 3367-7170 [email or web address]. Care instructions adapted under license by your healthcare professional. If you have questions about a medical condition or this instruction, always ask your healthcare professional. [email or web address] disclaims any warranty or liability for your [...] your doctor if you can take an suyu-nlr-ckjpirc medicine. Take short walks several times a [...] Log into your personal health record on [email or web address] and enter I594 in the Education box to learn more about Back Pain: Care Instructions. Current as of: July 26, 2018 Content Version: 11.9 3981-9362 [email or web address]. Care instructions adapted under license by your healthcare professional. If you have questions about a medical condition or this instruction, always ask your healthcare professional. [email or web address] disclaims any warranty or liability for your [...] Log into your personal health record on [email or web address] and enter Y090 in the Education box to learn more about Back Stretches: Exercises. Current as of: July 26, 2018 Content Version: 11.9 8124-6358 [email or web address]. Care instructions adapted under license by your healthcare professional. If you have questions about a medical condition or this instruction, always ask your healthcare professional. [email or web address] disclaims any warranty or liability for your [...] not operate a vehicle (car, bike, motorcycle, exercise instructor) machinery or power tools. Do not make [...] to call your physician or the hospital clam shovel operator if you have any questions, and [...] [facility] 12/17/2019 9:15 AM Earlene Cowan, DO [facility] 12/24/2019 9:15 AM Earlene Cowan, DO [facility] 12/31/2019 9:15 AM Earlene Harrisonr, DO [facility] documented in this [...] infront of you at the same time. Oxhm-xx-cukvp exercise 1. Lie on your back with [...] Log into your personal health record on [email or web address] and enter Z938 in the Education box to learn more about Low Back Pain: Exercises. Current as of: July 26, 2018 Content Version: 11.9 1843-4006 [email or web address]. Care instructions adapted under license by your healthcare professional. If you have questions about a medical condition or this instruction, always ask your healthcare professional. [email or web address] disclaims any warranty or liability for your use of this information. 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 He has tried muscle relaxant and [...] Coronary artery disease Mother at 66 [place] No Known Allergies The following portions of [...] the medications. This note was generated using [employer] voice recognition software in an effort to [...] and they have been high [facility] the [facility] clinic. Social History Tobacco Use Smoking status: Never Smoker Smokeless tobacco: Never Used Substance Use Topics Alcohol use: Yes Comment: rare Drug use: No Family History Problem Relation Age of Onset COPD Mother Coronary artery disease Mother at 66 [place] No Known Allergies The following portions of [...] the medications. This note was generated using [employer] voice recognition software in an effort to [...] Coronary artery disease Mother at 66 of [place] No Known Allergies The following portions of [...] the medications. This note was generated using [employer] voice recognition software in an effort to [...] Coronary artery disease Mother at 66 [place] No Known Allergies The following portions of [...] the medications. This note was generated using [employer] voice recognition software in an effort to [...] Coronary artery disease Mother at 66 of [place] No Known Allergies The following portions of [...] the medications. This note was generated using [employer] voice recognition software in an effort to [...] Coronary artery disease Mother at 66 [place] No Known Allergies The following portions of [...] the medications. This note was generated using [employer] voice recognition software in an effort to [...] More than three times a week Attends catholic service: Not on file Active member of club or organization: Not on file Attends meetings of clubs or organizations: Not on file Relationship status: Not on file Other Topics Concern Not on file Social History Narrative Not on file Family History Problem Relation Age of Onset COPD Mother Coronary artery disease Mother at 66 [place] Past Surgical History: Procedure Laterality Date HERNIA [...] clinic visit. Patient will contact our surgical elastic knitter hand frame nurse to set up a time. He [...] splint removal. documented in this encounter* Earlene Cowan DO - 12/17/2019 9:21 AM EST Subjective [...] this time. 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 We have instructed him to blow [...] perfect midline. documented in this encounter* Earlene Cowan, - 01/07/2020 9:31 AM EST Subjective Patient [...] Coronary artery disease Mother at 66 of [place] No Known Allergies The following portions of [...] the medications. This note was generated using [employer] voice recognition software in an effort to [...] Coronary artery disease Mother at 66 of [place] No Known Allergies The following portions of [...] the medications. This note was generated using [employer] voice recognition software in an effort to expedite communication. Please excuse results in grammatical or wording errors. documented in this encounter Advance Directives No Advanced Directives Records FoundDocuments on File Type Date Recorded Patient Back Stayer Expl anation Advance Directives and Livin g Will 10/27/2018 11:01 PM Documents on File Type Date Recorded Patient Back Stayer Expl anation Advance Directives and Livin g Will 08/16/2019 11:01 PM Documents on File Type Date Recorded Patient Back Stayer Expl anation Advance Directives and Livin g Will Advance Directives and Livin g Will 12/11/2019 9:15 AM Documents on File Type Date Recorded Patient Back Stayer Expl anation Advance Directives and Livin g Will Advance Directives and Livin g Will 12/11/2019 9:15 AM Documents on File Type Date Recorded Patient Back Stayer Expl anation Advance Directives and Livin g Will 08/16/2019 11:01 PM Reason for Referral Status Reason Specialty Diagnoses / Procedures Referred By Contact Referred To Contact Authorized Sleep Medicine Diagnoses Witnessed episode of apnea Habitual snoring Kailyn Looney, DO [address] [facility] [address] [place] [address] Status Reason Specialty Diagnoses / Procedures Referre d By Contact Referred To Contact Closed Radiology Diagnoses Deviated nasal septum Chronic sinusitis, unspecified location Procedures CT Sinus Stealth Without Contrast Earlene Cowan, DO [address] [facility] [address] [place] [address] Summary Purpose Family History No Family History Records FoundNo Family History Records FoundNo Family History Records FoundNo Family History Records FoundNo Family History Records Found Procedure Findings Note Patient: VINH COLBY RN: (COL)-[id number] Age: 50 years Sex: Male : 1970 [...] transversus abdominis release. SURGEON: Demarcus Rubio MD SET DESIGNER: Austin Zavala DO ANESTHESIA: General. ESTIMATED BLOOD [...] summary document to your follow up appointments. [facility] 09/27/20 11:21 [facility] [place]. [address] PATIENT INFORMATION Name: VINH COLBY Address: [address] [place] [id number] Age: 50 Years Phone: [phone] : 1970 12:00 MRN: [facility])-[id number] Sex: Male Race: White Ethnicity: Not Hispan/Lat Admitted From: Clinic or [facility]: Surgery Nurse Unit/Bed: ([place]) 5F 5210-01 Admit Date: 09/22/2020 06:15 PCP: Physician, PCP Unknown PHYSICIANS INVOLVED WITH CARE Attending Physicians: Demarcus Rubio MD - Surgery Admitting Physician: None found Primary Care Physician:Physician, PCP Unknown,Family Practice,,, - Consults: None found Problems Active Incisional hernia without obstruction or gangrene HTN (hypertension) Allergies No Known Medicat (more content not included)... Note Patient: VINH COLBY Wilner RN: ([facility])-[id number] Age: 50 years Sex: Male : 1970 [...] Procedures Performed PROCEDURES Ventral herniorrhaphy (SNOMED CT 3715242406) performed by Earle MARS (more content not included)... Note Patient: VINH COLBY Wilner RN: ([facility])-[id number] Age: 50 years Sex: Male : 1970 [...] summary document to your follow up appointments. [facility] 09/27/20 11:21 [address] [place]. [address] PATIENT INFORMATION Name: VINH COLBY Address: [address] [place] [address] [place] [address] Age: 50 Years Phone: [phone] : 1970 12:00 MRN: [id number] Sex: Male Race: White Ethnicity: Not Hispan/Lat Admitted From: Clinic or [facility]: Surgery Nurse Unit/Bed: ([place]) 5F 5210-01 Admit Date: 09/22/2020 06:15 PCP: Physician, PCP Unknown PHYSICIANS INVOLVED WITH CARE Attending Physicians: Demarcus Rubio MD - Surgery Admitting Physician: None found Primary Care Physician:Physician, PCP Unknown,Family Practice,,, - Consults: None found Problems Active Incisional hernia without obstruction or gangrene HTN (hypertension) Allergies No Known Medicat (more content not included)... Note Patient: VINH COLBY RN: (COL)-[id number] [facility]: [id number] Age: 50 years Sex: Male : 1970 [...] Procedures Performed PROCEDURES Ventral herniorrhaphy (SNOMED CT [id number]) performed by Earle MARS (more content not included)... Chief Complaint and Reason for Visit Chief Complaint Admit Date E ORDERS May 29, 2025 7:16 am Additional Source Comments Reason for Visit (unrecogniz [...] Hep A- [place] the city- [place] 15 Reason Comments Follow-up go over CT results Status Reason Specialty Diagnoses / Procedures Referre d By Contact Referred To Contact Diagnoses chronic nasal obstruction,DNS, turbinate hypertropgy Procedures [place] EXCISION TURBINATE,SUBMUCOUS [place] REPAIR OF NASAL SEPTUM Earlene Cowan DO [address] [facility] [address] [place] [address] Reason Comments Erectile Dysfunction Discuss testosteron e , pt has been off testosterone since March- he is very frustrated Hypertension Status Reason Specialty Diagnoses / Procedures Referre d By Contact Referred To Contact Closed Radiology Diagnoses Deviated nasal septum Chronic sinusitis, unspecified location Procedures CT Sinus Stealth Without Contrast Earlene Cowan, DO [address] [place] [address] ED Provider Notes - Mino Chungauretiara Michael, - 10/27/2018 4:18 PM ESTED Attestation Note - Mino Chungaleksandr Alec, - 10/27/2018 4:17 PM EST Miscellaneous Notes (unrecog nized section and content) Formatting of this note may be different from the original. ED PROVIDER NOTE [facility] EMERGENCY DEPARTMENT NAME: Vinh Colby AGE: 48 y.o. : 1970 VISIT DATE: 10/27/2018 CSN: [id number] PCP: Kailyn Looney DO Chief Complaint Patient [...] REPAIR inguinal hernia TESTICLE SURGERY cancer 2004 Family History Problem Relation Age of Onset COPD Mother Coronary artery disease Mother at 66 [place] Social History Social History Marital status: Spouse [...] Colorless, Yellow Clarity, Urine Clear Clear Specific Zahl 1.024 1.005 - 1.025 pH, Urine 5.0 [...] pattern. [facility]/[employer] Workstation ID: [id number] Procedures MDM Pain medicine [...] Kailyn Looney DO. Specialty: Family Medicine [address] [address] 2. [facility] Emergency Department. Specialty: Emergency Medicine Why: If symptoms worsen [address] [id number] Contact information for after-discharge care Follow-up information [...] patch topically daily . Leslie Chung DO 10/27/18 1821 ED Attestation This patient was [...] note may be different from the original. [facility] ED Resident Note: NAME: Vinh Colby 48 y.o. CSN: [id number] PCP: Kailyn Looney DO History: Chief Complaint: [...] Coronary artery disease Mother at 66 [place] SOC. Hx: Social History Social History Marital [...] patch topically daily ., Starting 10/27/2018, Until Mon11/26/2018, Print lisinopril (PRINIVIL,ZESTRIL) 20 MG tablet Take 1 (one) tablet (20 mg total) by mouth daily., Starting Mon08/31/2018, Normal predniSONE (DELTASONE) 10 MG tablet 4x3d then 3x3d then 2x3d then 1x3d., Normal sildenafil (VIAGRA) 100 MG tablet Take 1 (one) tablet (100 mg total) by mouth daily as needed for erectile dysfunction., Starting Mon08/31/2018, Until Mon09/30/2018, Normal ALL: No Known Allergies ROS: Review [...] other known risk factors. Radiology 2017. Feb 23:873470. DOI: 10.1148/radiol.1483487082. WPT/vrs Workstation ID: [id number] Procedures: Procedures ED [...] of his stay with us. Patient has [place] 5 and Valium at home from his [...] of their questions had been answered. Vinhbartolome Colby case was discussed with my attending physician who agrees with their ED management and final disposition. Please refer to their attestation to this encounter for additional information. Clinical Impression: SNOMED CT(R) 1. Musculoskeletal back pain BACKACHE Disposition: Patient is being Discharge to home Discharge Medication List as of 10/28/2018 2:56 AM Jace Collado DO ED Resident Physician [facility] Emergency Department (Please note that portions of [...] but it is just worse.in this encounter [facility] DEPARTMENT OF OTOLARYNGOLOGY Patient Name: Vinh Colby Date: 1970 Billing Number: [id number] Date of Procedure: 12/11/2019 Time: 1110 Pre Operative Diagnoses: 1. Deviated Nasal Septum 2. Nasal Obstruction 3. Bilateral Inferior Turbinate Hypertrophy Post Operative Diagnoses: 1. Deviated Nasal Septum 2. Nasal Obstruction 3. Bilateral Inferior Turbinate Hypertrophy Procedures: 1. Septoplasty 2. Bilateral Inferior Turbinate Reduction with Radiofrequency Ablation via Celon Surgeon: Dr. Earlene Cowan DO Briquette Molder: 1. Maci Cowan DO, ENT Resident PGY-5 [...] Patient was given Zyrtec along with Tessalon Perlbilly. He states his medications did not help [...] septum was injected with 1% lido with [id number] epinephrine and a total of 10 cc [...] deviated bone and cartilage was removed with tagahashi forceps. Next attention was taken to the [...] Earlene Cowan DO - 12/11/2019 10:19 AM DORIANSandro Robertson DO - 11/29/2019 9:31 AM EST H&P Notes (unrecognized sect ion and content) INTERVAL HISTORY AND PHYSICAL Patient Name: Vinh Colby Admit Date: MR #: [id number] : 1970 The H&P has been reviewed [...] Coronary artery disease Mother at 66 [place] @ Prior to Admission medications Medication Sig [...] section and content) DATE CREATED AUTHOR 01/10/2020 [facility] DATE CREATED AUTHOR AUTHOR'S ORGANIZ ATION 05/29/2020 [facility] DATE CREATED AUTHOR AUTHOR'S ORGANIZ ATION 10/12/2020 [facility] DATE CREATED AUTHOR AUTHOR'S ORGANIZ ATION 12/13/2022 [facility] latory DATE CREATED AUTHOR AUTHOR'S RIANNA ATLUIS E 06/05/2025 [facility] Goals (unrecognized section and content) Goals may be documented in a n alternate sectionGoals may be documented in an alternate sectionGoals may be documented in an alternate section Care Teams (unrecognized sec tion and content) Team Status: Active Member Role Status Dates Dr. Kailyn Ibrahim MD Primary Care Provider Active Team Status: Inactive Member Role Status Dates Dr. Kailyn Ibrahim MD Primary Care Provider, Attend ing Provider Active Team Status: Active Member Role/Relationship Status Dates Dr. Kailyn Ibrahim MD Primary Care Provider Active Team Status: Inactive Member Role/Relationship Status Dates Dr. Kailyn Ibrahim MD Primary Care Provider Active Start: May 29, 2025 End: May 29, 2025 Dr. Kailyn Ibrahim MD Attending Provider Active Start: May 29, 2025 End: May 29, 2025 Dr. Kailyn Ibrahim MD Referring Provider Active Start: May 29, 2025 End: May 29, 2025 FOR RECORDS PERTAINING TO PATIENTS WHO ARE [...] BE BASED ON THE PRIMARY CLINICAL RECORDS. [employer] provides no warranty or guarantee of the accuracy or completeness of information in this document.
[2025-07-03 07:35] LABS: Hematocrit 44.5 % (40-54); Hemoglobin 15.6 g/dL (13.0-16.5); Immature Granulocytes Count 0.020 X10^3/uL (0.0-0.0); Mean Corp Hgb Conc 35.1 g/dL (32-36); Mean Corpuscular Volume 85.4 fL (80-94); Mean Platelet Vol. 9.6 fl (6.2-12.0); NRBC Flagged by Analyzer 0 % (0-5); Platelet Count 262 K/mm3 (150-450); RBC Distribution Width CV 13.1 % (11.6-14.6); RBC Distribution Width SD 40.7 fl (35.1-43.9); Red Blood Count 5.21 M/mm3 (4.6-6.2); White Blood Count 7.2 K/mm3 (4.4-11.0)
[2025-07-03 08:16] LABS: Cholesterol 157 mg/dL (<=200); Low Density Lipoprotein Calc. 79 mg/dL; Triglycerides 95 mg/dL; Very Low Density Lipoprotein 19 mg/dL (5-40); cholesterol:hdl ratio screen 2.65
[2025-07-03 08:18] LABS: AST(SGOT) 34 U/L (<=37); Alanine Aminotransfer ALT/SGPT 35 U/L (<=46); Albumin, Serum 3.9 g/dL (3.5-5.0); Alkaline Phosphatase 83 U/L (40-129); Anion Gap 12 (5-15); BUN 15 mg/dL (4-19); BUN/Creat Ratio 15.2 RATIO (10-20); Calcium,Total 9.1 mg/dL (7.6-11.0); Carbon Dioxide 22.1 mmol/L (21.0-32.0); Chloride 107 mmol/L (98-108); Globulin 3.1 g/dL (2.2-4.2); Glucose 96 mg/dL (70-99); Potassium 4.3 mmol/L (3.3-5.1)
== END | disposition home or self-care (01) ==
LOC: LAB 07:17
PROVIDERS: PCP Family Medicine; Referring Provider Family Medicine; Visit Provider Family Medicine
DX: I10 Essential (primary) hypertension (principal); E06.3 Autoimmune thyroiditis
CPT/HCPCS: 36415; 80053; 80061; 84439; 84443; 85025

== ENCOUNTER → 2025-07-05 | Outpatient (CLI) | payer OTHER, SELFPAY ==
--- OUTSIDE RECORDS SUMMARY | 2025-07-05 07:29 | XMS RPT_ITS | CCD ---
Author Organization [facility] Care Team Providers Care Quantitative Developer Name Role Phone Kailyn Looney Unavailable [phone] EARLENE DURAN Attending Unavail able LETICIAAPEARLENE MEYER Referring Unavail able KAILYN LOONEY Primary Care Unavaila ble LETICIAAPBETSY, EARLENE JO Admitting Unavail able EARLENE DURAN Attending Unavail able KAILYN LOONEY Primary Care Unavaila ble CAMRYN, EARLENE JO Admitting Unavail able AAYUSH, KAILYN PEARSON Primary Care Unavaila ble SANDRO PAYNE Attending Unavailable Kailyn Looney Primary Care Provider [phone] KAILYN LOONEY Primary Care Unavaila ble COCCHECO, KAILYN PEARSON Admitting Unavaila ble COCUMEKAILYN MAHER Primary Care Unavaila ble GAIBLE, SANDRA ALVARADO Admitting Unavailab le GAIBLE, SANDRA ALVARADO Referring Unavailab le COCUMEKAILYN MAHER Primary Care Unavaila ble Kailyn Looney Primary Care Provider KAILYN LOONEY Attending Unavaila ble COCUMENIKA, KAILYN PEARSON Primary Care Unavaila ble Patrice MARS, Dr. Kailyn Ta Primary Care Provider Patrice MARS, Dr. Kailyn Ta Attending Provider [phone] Patrice MARS, Dr. Kailyn Ta Referring Provider Kailyn Ibrahim Primary Care Unavailable Kailyn Ibrahim [...] Ibrahim Attending Unavailable Kailyn Ibrahim Referring Unavailable Medications Current Medications Medication Drug Class(es) [...] tablet Active 6 mg PO DAILY 5 August 03, 2022 12:00am diclofenac sodium 0.01 [...] Active Start: 01-11-2019 take 1 capsule by [facility] once daily hydroCHLOROthiazide (MICROZIDE) 12.5 mg [...] spray(s) nasal route every hour sodium chloride ([place] Nasal) 0.65 % nasal spray Instill 2 [...] Start: 08-18-2017 take 2 tablets by mo [facility] once daily, then take 1 tablet by [...] mg/ml oral solution (1 source) Phenothiazine, Uncompetitive T-sskinb-B-aspartat e Receptor Antagonist, Sigma-1 Agonist Start: 02-27-2019 [...] Start: 01-15-2016 apply 30 g rectal ro mikhail three times daily hydrocortisone-pramoxine (ANALPRAM-HC) 2.5-1 % [...] pain; Translations: [Acute post-operative pain] Episodic Other screening for suspected conditions (not mental disorders or infectious disease) (1 source) Other specified abnormal findings of blood chemistry; Translations: [Other specified abnormal findings of blood chemistry] Onset: 07-04-2025 Episodic Other upper respiratory disease (1 source) [...] Interpretation Reference Range Facility CBC W/Diff, Automatedon 08-2 Absolute Lymph 2.14 X10 3/uL Normal 0.83-4.51 [facility] Comment on above: Order Comment: Order Date: 06/03/25 Order Info: 0184-1 - CBCD Performed By: #### L 501.9520, L506.0400, L500.4100, L500.4050, L100.0100 #### [facility] [address], [address] Absolute Neut 4.0 X10 3/uL Normal 2.0-7.7 [facility] Comment on above: Order Comment: Order Date: 06/03/25 Order Info: 0184-1 - CBCD Performed By: #### L 501.9520, L506.0400, L500.4100, L500.4050, L100.0100 #### [facility] [address] [place], [address] Basophils/100 WBC (Bld) 0.6 % Normal 0-1 [facility] Comment on above: Order Comment: Order Date: 06/03/25 Order Info: 0184- - CBCD Performed By: #### L 501.9520, L506.0400, L500.4100, L500.4050, L100.0100 #### [facility] [address], [address] Eosinophils/100 WBC (Bld) 2.1 % Normal 0-5 [facility] Comment on above: Order Comment: Order Date: 06/03/25 Order Info: 0184- - CBCD Performed By: #### L 501.9520, L506.0400, L500.4100, L500.4050, L100.0100 #### [facility] [address] [place], [address] Erythrocyte distribution width (RBC) [Ratio] 13.1 % Normal 11.6-14.6 [facility] Comment on above: Order Comment: Order Date: 06/03/25 Order Info: 0184-1 - CBCD Performed By: #### L 501.9520, L506.0400, L500.4100, L500.4050, L100.0100 #### [facility] [address] [place], [address] Hematocrit (Bld) [Volume fraction] 44.5 % Normal 40-54 [facility] Comment on above: Order Comment: Order Date: 06/03/25 Order Info: 0184-1 - CBCD Performed By: #### L 501.9520, L506.0400, L500.4100, L500.4050, L100.0100 #### [facility] [address] [place], [address] Hemoglobin (Bld) [Mass/Vol] 15.6 g/dL Normal 13.0-16.5 [facility] Comment on above: Order Comment: Order Date: 06/03/25 Order Info: 0184-1 - CBCD Performed By: #### L 501.9520, L506.0400, L500.4100, L500.4050, L100.0100 #### [facility] [address] [place], [address] IG% 0.300 Normal 0.0-0.9 [facility] Comment on above: Order Comment: Order Date: 06/03/25 Order Info: 0184-1 - CBCD Result Comment: IG% - Immature Granulocytes (promyelocytes, myelocytes and metamyelocytes) > 1% indicates that a LEFT SHIFT is Present. Performed By: #### L 501.9520, L506.0400, L500.4100, L500.4050, L100.0100 #### [facility] [address] [place], [address] Lymphocytes/100 WBC (Bld) 29.9 % Normal 19-41 [facility] Comment on above: Order Comment: Order Date: 06/03/25 Order Info: 0184-1 - CBCD Performed By: #### L 501.9520, L506.0400, L500.4100, L500.4050, L100.0100 #### [facility] [address] [place], [address] MCH (RBC) [Entitic mass] 29.9 pg Normal 27.0-32.0 [facility] Comment on above: Order Comment: Order Date: 06/03/25 Order Info: 0184-1 - CBCD Performed By: #### L 501.9520, L506.0400, L500.4100, L500.4050, L100.0100 #### [facility] [address] [place], [address] MCHC (RBC) [Mass/Vol] 35.1 g/dL Normal 32-36 [facility] Comment on above: Order Comment: Order Date: 06/03/25 Order Info: 0184-1 - CBCD Performed By: #### L 501.9520, L506.0400, L500.4100, L500.4050, L100.0100 #### [facility] [address] [place], [address] MCV (RBC) [Entitic vol] 85.4 fL Normal 80-94 [facility] Comment on above: Order Comment: Order Date: 06/03/25 Order Info: 0184-1 - CBCD Performed By: #### L 501.9520, L506.0400, L500.4100, L500.4050, L100.0100 #### [facility] [address] [place], [address] Monocytes/100 WBC (Bld) 11.2 % High 0-10 [facility] Comment on above: Order Comment: Order Date: 06/03/25 Order Info: 0184-1 - CBCD Performed By: #### L 501.9520, L506.0400, L500.4100, L500.4050, L100.0100 #### [facility] [address] [place], [address] Neutrophils/100 WBC (Bld) 55.9 % Normal 47-70 [facility] Comment on above: Order Comment: Order Date: 06/03/25 Order Info: 0184-1 - CBCD Performed By: #### L 501.9520, L506.0400, L500.4100, L500.4050, L100.0100 #### [facility] [address], [address] Nucleated RBC (Bld) [#/Vol] 0 10*3/uL Normal 0-5 [facility] Comment on above: Order Comment: Order Date: 06/03/25 Order Info: 0184- - CBCD Performed By: #### L 501.9520, L506.0400, L500.4100, L500.4050, L100.0100 #### [facility] [address] [place], [address] Platelet mean volume (Bld) [Entitic vol] 9.6 fL Normal 6.2-12.0 [facility] Comment on above: Order Comment: Order Date: 06/03/25 Order Info: 0184- - CBCD Performed By: #### L 501.9520, L506.0400, L500.4100, L500.4050, L100.0100 #### [facility] [address] [place], [address] Platelets (Bld) [#/Vol] 262 10*3/uL Normal 150-450 [facility] Comment on above: Order Comment: Order Date: 06/03/25 Order Info: 0184- - CBCD Performed By: #### L 501.9520, L506.0400, L500.4100, L500.4050, L100.0100 #### [facility] [address] [place], [address] RBC (Bld) [#/Vol] 5.21 10*6/uL Normal 4.6-6.2 [facility] Comment on above: Order Comment: Order Date: 06/03/25 Order Info: 0184-1 - CBCD Performed By: #### L 501.9520, L506.0400, L500.4100, L500.4050, L100.0100 #### [facility] [address] [place], [address] RDW SD 40.7 fl Normal 35.1-43.9 [facility] Comment on above: Order Comment: Order Date: 06/03/25 Order Info: 0184-1 - CBCD Performed By: #### L 501.9520, L506.0400, L500.4100, L500.4050, L100.0100 #### [facility] [address] [place], [address] WBC (Bld) [#/Vol] 7.2 10*3/uL Normal 4.4-11.0 [facility] Comment on above: Order Comment: Order Date: 06/03/25 Order Info: 0184-1 - CBCD Performed By: #### L 501.9520, L506.0400, L500.4100, L500.4050, L100.0100 #### [facility] [address] [place], [address] Comprehensive Metabolic Prof [facility] 07-03-2025 Albumin [Mass/Vol] 3.9 g/dL Normal 3.5-5.0 [facility] Comment on above: Order Comment: Order Date: 06/03/25 Order Info: 0786-1 - CMP Order Info: 86884-5 - LIPID Order Info: 3016-3 - TSH Order Info: 3024-7 - T4F Performed By: #### L 501.9520, L506.0400, L500.4100, L500.4050, L100.0100 #### [facility] [address] [place], [address] Albumin/Globulin [Mass ratio] 1.3 {ratio} Normal 0.9-2.4 [facility] Comment on above: Order Comment: Order Date: 06/03/25 Order Info: 0786- - CMP Order Info: - LIPID Order Info: 3016-01 - TSH Order Info: 3024-05 - T4F Performed By: #### L 501.9520, L506.0400, L500.4100, L500.4050, L100.0100 #### [facility] [address] [place], [address] ALK PHOS 83 U/L Normal 40-129 [facility] Comment on above: Order Comment: Order Date: 06/03/25 Order Info: 785- - CMP Order Info: - LIPID Order Info: 3016-01 - TSH Order Info: 3024-05 - T4F Performed By: #### L 501.9520, L506.0400, L500.4100, L500.4050, L100.0100 #### [facility] [address] [place], [address] ALT [Catalytic activity/Vol] 35 U/L Normal <=46 [facility] Comment on above: Order Comment: Order Date: 06/03/25 Order Info: 785-11 - CMP Order Info: - LIPID Order Info: 3016-01 - TSH Order Info: 3024-05 - T4F Performed By: #### L 501.9520, L506.0400, L500.4100, L500.4050, L100.0100 #### [facility] [address] [place], [address] AST [Catalytic activity/Vol] 34 U/L Normal <=37 [facility] Comment on above: Order Comment: Order Date: 06/03/25 Order Info: 1 - CMP Order Info: - LIPID Order Info: 3016-01 - TSH Order Info: 7 - T4F Result Comment: Hemo lysis present, Results??could be affected. ?? Performed By: #### L 501.9520, L506.0400, L500.4100, L500.4050, L100.0100 #### [facility] [address] [place], [address] Bilirubin [Mass/Vol] 1.11 mg/dL Normal 0.00-1.30 [facility] Comment on above: Order Comment: Order Date: 06/03/25 Order Info: 785-1 - CMP Order Info: 09538-7 - LIPID Order Info: 3 - TSH Order Info: 3024-7 - T4F Performed By: #### L 501.9520, L506.0400, L500.4100, L500.4050, L100.0100 #### [facility] [address] [place], [address] BUN/CRE 15.2 RATIO Normal 10-20 [facility] Comment on above: Order Comment: Order Date: 06/03/25 Order Info: 785- - CMP Order Info: - LIPID Order Info: 3016-01 - TSH Order Info: 3027 - T4F Performed By: #### L 501.9520, L506.0400, L500.4100, L500.4050, L100.0100 #### [facility] [address] [place], [address] Calcium [Mass/Vol] 9.1 mg/dL Normal 7.6-11.0 [facility] Comment on above: Order Comment: Order Date: 06/03/25 Order Info: 785- - CMP Order Info: - LIPID Order Info: 3 - TSH Order Info: 3024-7 - T4F Performed By: #### L 501.9520, L506.0400, L500.4100, L500.4050, L100.0100 #### [facility] [address] [place], [address] Chloride [Moles/Vol] 107 mmol/L Normal 98-108 [facility] Comment on above: Order Comment: Order Date: 06/03/25 Order Info: 785-1 - CMP Order Info: 64884-0 - LIPID Order Info: 3016-01 - TSH Order Info: 7 - T4F Performed By: #### L 501.9520, L506.0400, L500.4100, L500.4050, L100.0100 #### [facility] [address] [place], [address] CO2 [Moles/Vol] 22.1 mmol/L Normal 21.0-32.0 [facility] Comment on above: Order Comment: Order Date: 06/03/25 Order Info: 785-1 - CMP Order Info: - LIPID Order Info: 3016-01 - TSH Order Info: 7 - T4F Performed By: #### L 501.9520, L506.0400, L500.4100, L500.4050, L100.0100 #### [facility] [address] [place], [address] Creatinine [Mass/Vol] 0.99 mg/dL Normal 0.70-1.20 [facility] Comment on above: Order Comment: Order Date: 06/03/25 Order Info: 785-11 - CMP Order Info: - LIPID Order Info: 3016-01 - TSH Order Info: 7 - T4F Performed By: #### L 501.9520, L506.0400, L500.4100, L500.4050, L100.0100 #### [facility] [address] [place], [address] GAP 12 Normal 5-15 [facility] Comment on above: Order Comment: Order Date: 06/03/25 Order Info: 07 - CMP Order Info: 51449-7 - LIPID Order Info: 3016-01 - TSH Order Info: 7 - T4F Performed By: #### L 501.9520, L506.0400, L500.4100, L500.4050, L100.0100 #### [facility] [address] [place], [address] GFR/1.73 sq M.predicted among non-blacks MDRD (S/P/Bld) [Vol rate/Area] 90 mL/min/{1.73_m2} Normal >60 [facility] Comment on above: Order Comment: Order Date: 06/03/25 Order Info: 0786-1 - CMP Order Info: 11543-8 - LIPID Order Info: 3016-3 - TSH Order Info: 3024-7 - T4F Result Comment: mL/m in/1.73m2 CKD-EPI Creatinine Equation (2020) Performed By: #### L 501.9520, L506.0400, L500.4100, L500.4050, L100.0100 #### [facility] [address] [place], [address] Globulin (S) [Mass/Vol] 3.1 g/dL Normal 2.2-4.2 [facility] Comment on above: Order Comment: Order Date: 06/03/25 Order Info: 785-11 - CMP Order Info: 04438-3 - LIPID Order Info: 3 - TSH Order Info: 30247 - T4F Performed By: #### L 501.9520, L506.0400, L500.4100, L500.4050, L100.0100 #### [facility] [address] [place], [address] Glucose [Mass/Vol] 96 mg/dL Normal 70-99 [facility] Comment on above: Order Comment: Order Date: 06/03/25 Order Info: 07-1 - CMP Order Info: 38595-2 - LIPID Order Info: 3016-3 - TSH Order Info: 3024-7 - T4F Performed By: #### L 501.9520, L506.0400, L500.4100, L500.4050, L100.0100 #### [facility] [address] [place], [address] Potassium [Moles/Vol] 4.3 mmol/L Normal 3.3-5.1 [facility] Comment on above: Order Comment: Order Date: 06/03/25 Order Info: 785-1 - CMP Order Info: 68545-9 - LIPID Order Info: 3 - TSH Order Info: 3024-7 - T4F Result Comment: Hemo lysis present, Results??could be affected. ?? Performed By: #### L 501.9520, L506.0400, L500.4100, L500.4050, L100.0100 #### [facility] [address] [place], [address] Sodium [Moles/Vol] 140 mmol/L Normal 133-145 [facility] Comment on above: Order Comment: Order Date: 06/03/25 Order Info: 785- - CMP Order Info: 37518-6 - LIPID Order Info: 3 - TSH Order Info: 3024-7 - T4F Performed By: #### L 501.9520, L506.0400, L500.4100, L500.4050, L100.0100 #### [facility] [address] [place], [address] T PROT 7.0 g/dL Normal 5.9-8.4 [facility] Comment on above: Order Comment: Order Date: 06/03/25 Order Info: 785-11 - CMP Order Info: 69710-0 - LIPID Order Info: 3 - TSH Order Info: 3024-7 - T4F Performed By: #### L 501.9520, L506.0400, L500.4100, L500.4050, L100.0100 #### [facility] [address] [place], [address] Urea nitrogen [Mass/Vol] 15 mg/dL Normal 4-19 [facility] Comment on above: Order Comment: Order Date: 06/03/25 Order Info: 07-1 - CMP Order Info: 52601-9 - LIPID Order Info: 30163 - TSH Order Info: 3024-7 - T4F Performed By: #### L 501.9520, L506.0400, L500.4100, L500.4050, L100.0100 #### [facility] [address] [place], [address] Lipid Profileon 07-03-2025 CHOL:HDL 2.65 Normal [facility] Comment on above: Order Comment: Order Date: 06/03/25 Order Info: 0786-1 - CMP Order Info: 37818-3 - LIPID Order Info: 3 - TSH Order Info: 3024-05 T4F Performed By: #### L 501.9520, L506.0400, L500.4100, L500.4050, L100.0100 #### [facility] [address] [place], [address] Cholesterol [Mass/Vol] 157 mg/dL Normal <=200 [facility] Comment on above: Order Comment: Order Date: 06/03/25 Order Info: 785- - CMP Order Info: - LIPID Order Info: 3016-01 - TSH Order Info: 3024-05 T4F Result Comment: Chol esterol level, Desirable <200 mg/dL Borderline high cholesterol 200-239 mg/dL High cholesterol >=240 mg/dL Recommendations of the NCEP Adult Treatment Panel for the following risk-cutoff thresholds for the [place] population. Performed By: #### L 501.9520, L506.0400, L500.4100, L500.4050, L100.0100 #### [facility] [address] [place], [address] Cholesterol in HDL [Mass/Vol] 59 mg/dL Normal [facility] Comment on above: Order Comment: Order Date: 06/03/25 Order Info: 07-1 - CMP Order Info: - LIPID Order Info: 3 - TSH Order Info: 3024-05 - T4F Result Comment: Nisha onal Cholesterol Education Program (NCEP) guidelines: <40 mg/dL: Low HDL-cholesterol (major risk factor for CHD) >= 60 mg/dL: High HDL-cholesterol (negative risk factor for CHD) HDL-cholesterol is affected by a number of factors, e.g. smoking, exercise, hormones, sex and age. Performed By: #### L 501.9520, L506.0400, L500.4100, L500.4050, L100.0100 #### [facility] [address] [place], [address] Cholesterol in LDL [Mass/Vol] 79 mg/dL Normal [facility] Comment on above: Order Comment: Order Date: 06/03/25 Order Info: 07 - CMP Order Info: - LIPID Order Info: 3 - TSH Order Info: 3024-05 - T4F Result Comment: Bord utqfqn=108-689 mg/dL Higher Omlz=564 mg/dL or greater Friedwald Equation for LDL-C Performed By: #### L 501.9520, L506.0400, L500.4100, L500.4050, L100.0100 #### [facility] [address] [place], [address] Cholesterol in VLDL [Mass/Vol] 19 mg/dL Normal 5-40 [facility] Comment on above: Order Comment: Order Date: 06/03/25 Order Info: 07 - CMP Order Info: - LIPID Order Info: 3 - TSH Order Info: 3024-05 T4F Performed By: #### L 501.9520, L506.0400, L500.4100, L500.4050, L100.0100 #### [facility] [address] [place], [address] Triglyceride [Mass/Vol] 95 mg/dL Normal [facility] Comment on above: Order Comment: Order Date: 06/03/25 Order Info: 07 - CMP Order Info: [id number] - LIPID Order Info: 3 - TSH Order Info: 7 - T4F Result Comment: The drugs N-Acetylcysteine and Metamizole may falsely depress this assay. Normal range: <150 mg/dL Borderline High: 150-199 mg/dL High: 200-499 mg/dL Very High: >500 mg/dL Performed By: #### L 501.9520, L506.0400, L500.4100, L500.4050, L100.0100 #### [facility] [address] [place], [place], [id number] T4 Free Directon 07-03-2025 T4 FREE DIRECT 1.60 ng/dL High 0.76-1.46 [facility] Comment on above: Order Comment: Order Date: 06/05/24 Order Info: 0184-1 - CBCD Performed By: #### L 501.9910, L506.0400, L500.4050, L501.9520, L100.0100, L500.4100 #### [facility] [address] [facility] [place], [place], [address] Thyroid Stim Hormone (TSH)on 07-03-2025 TSH 0.006 uIU/mL Low 0.300-4.20 0 [facility] Comment on above: Order Comment: Order Date: 06/05/24 Order Info: 0184-1 - CBCD Result Comment: AMENDED REPORT 07/03/25 0847 TSH previously reported as: 0.005 L uIU/mL Performed By: #### L 501.9910, L506.0400, L500.4050, L501.9520, L100.0100, L500.4100 #### [facility] [address] [place], [place], [id number] Absolute lymphocyte countOrd ered By: Kailyn Ibrahim on 05-29-2025 Lymphocytes Auto (Unsp spec) [#/Vol] 2.20 10*3/uL 0.83-4.51 [facility] Absolute neutrophil countOrd ered By: Kailyn Ibrahim on 05-29-2025 Neutrophils (Bld) [#/Vol] 2.6 10*3/uL 2.0-7.7 [facility] Anion gap in Serum or Plasma Ordered By: Kailyn Ibrahim on 05-29-2025 Anion gap [Moles/Vol] 11 mmol/L 5- [facility] Automated lymphocyte count a s percentage of total leukocytesOrdered By: Kailyn Ibrahim on 05-29-2025 Lymphocytes/100 WBC Auto (Unsp spec) 39.2 % [facility] BUN/creatinine ratioOrdered By: Kailyn Ibrahim on 05-29-2025 Urea nitrogen/Creatinine [Mass ratio] 16.0 mg/mg - [facility] Basophil percentageOrdered B y: Kailyn Ibrahim on 05-29-2025 Basophils/100 WBC (Bld) 0.7 % 0-1 [facility] Bilirubin Test strip Ql (U)O rdered By: Kailyn Ibrahim on 05-29-2025 Bilirubin Ql (U) Negative Negative [facility] Bilirubin, totalOrdered By: Kailyn Ibrahim on 05-29-2025 Bilirubin [Mass/Vol] 0.92 mg/dL 0.00-1.30 [facility] CBC W/Diff, Automatedon 05-07 Absolute Lymph 2.20 X10 3/uL Normal 0.83-4.51 [facility] Comment on above: Order Comment: Order Date: 06/05/24 Order Info: 0184-1 - CBCD Performed By: #### L 501.9910, L506.0400, L500.4050, L501.9520, L100.0100, L500.4100 #### [facility] [address] [place], [address] Absolute Neut 2.6 X10 3/uL Normal 2.0-7.7 [facility] Comment on above: Order Comment: Order Date: 06/05/24 Order Info: 0184-1 - CBCD Performed By: #### L 501.9910, L506.0400, L500.4050, L501.9520, L100.0100, L500.4100 #### [facility] [address] [place], [address] Basophils/100 WBC (Bld) 0.7 % Normal 0-1 [facility] Comment on above: Order Comment: Order Date: 06/05/24 Order Info: 0184- - CBCD Performed By: #### L 501.9910, L506.0400, L500.4050, L501.9520, L100.0100, L500.4100 #### [facility] [address] [place], [address] Eosinophils/100 WBC (Bld) 3.6 % Normal 0-5 [facility] Comment on above: Order Comment: Order Date: 06/05/24 Order Info: 018- - CBCD Performed By: #### L 501.9910, L506.0400, L500.4050, L501.9520, L100.0100, L500.4100 #### [facility] [address] [place], [address] Erythrocyte distribution width (RBC) [Ratio] 12.1 % Normal 11.6-14.6 [facility] Comment on above: Order Comment: Order Date: 06/05/24 Order Info: 0184- - CBCD Performed By: #### L 501.9910, L506.0400, L500.4050, L501.9520, L100.0100, L500.4100 #### [facility] [address] [place], [address] Hematocrit (Bld) [Volume fraction] 44.8 % Normal 40-54 [facility] Comment on above: Order Comment: Order Date: 06/05/24 Order Info: 0184- - CBCD Performed By: #### L 501.9910, L506.0400, L500.4050, L501.9520, L100.0100, L500.4100 #### [facility] [address] [place], [address] Hemoglobin (Bld) [Mass/Vol] 15.3 g/dL Normal 13.0-16.5 [facility] Comment on above: Order Comment: Order Date: 06/05/24 Order Info: 0184- - CBCD Performed By: #### L 501.9910, L506.0400, L500.4050, L501.9520, L100.0100, L500.4100 #### [facility] [address] [place], [address] IG% 0.200 Normal 0.0-0.9 [facility] Comment on above: Order Comment: Order Date: 06/05/24 Order Info: 0184-1 - CBCD Result Comment: IG% - Immature Granulocytes (promyelocytes, myelocytes and metamyelocytes) > 1% indicates that a LEFT SHIFT is Present. Performed By: #### L 501.9910, L506.0400, L500.4050, L501.9520, L100.0100, L500.4100 #### [facility] [address] [place], [address] Lymphocytes/100 WBC (Bld) 39.2 % Normal 19-41 [facility] Comment on above: Order Comment: Order Date: 06/05/24 Order Info: 0184-1 - CBCD Performed By: #### L 501.9910, L506.0400, L500.4050, L501.9520, L100.0100, L500.4100 #### [facility] [address] [place], [address] MCH (RBC) [Entitic mass] 29.8 pg Normal 27.0-32.0 [facility] Comment on above: Order Comment: Order Date: 06/05/24 Order Info: 0184-1 - CBCD Performed By: #### L 501.9910, L506.0400, L500.4050, L501.9520, L100.0100, L500.4100 #### [facility] [address] [place], [address] MCHC (RBC) [Mass/Vol] 34.2 g/dL Normal 32-36 [facility] Comment on above: Order Comment: Order Date: 06/05/24 Order Info: 018-1 - CBCD Performed By: #### L 501.9910, L506.0400, L500.4050, L501.9520, L100.0100, L500.4100 #### [facility] [address] [place], [address] MCV (RBC) [Entitic vol] 87.3 fL Normal 80-94 [facility] Comment on above: Order Comment: Order Date: 06/05/24 Order Info: 018- - CBCD Performed By: #### L 501.9910, L506.0400, L500.4050, L501.9520, L100.0100, L500.4100 #### [facility] [address] [place], [address] Monocytes/100 WBC (Bld) 10.0 % Normal 0-10 [facility] Comment on above: Order Comment: Order Date: 06/05/24 Order Info: 018- - CBCD Performed By: #### L 501.9910, L506.0400, L500.4050, L501.9520, L100.0100, L500.4100 #### [facility] [address], [address] Neutrophils/100 WBC (Bld) 46.3 % Low 47-70 [facility] Comment on above: Order Comment: Order Date: 06/05/24 Order Info: 018- - CBCD Performed By: #### L 501.9910, L506.0400, L500.4050, L501.9520, L100.0100, L500.4100 #### [facility] [address] [place], [address] Nucleated RBC (Bld) [#/Vol] 0 10*3/uL Normal 0-5 [facility] Comment on above: Order Comment: Order Date: 06/05/24 Order Info: 0184- - CBCD Performed By: #### L 501.9910, L506.0400, L500.4050, L501.9520, L100.0100, L500.4100 #### [facility] [address] [place], [address] Platelet mean volume (Bld) [Entitic vol] 9.9 fL Normal 6.2-12.0 [facility] Comment on above: Order Comment: Order Date: 06/05/24 Order Info: 0184-1 - CBCD Performed By: #### L 501.9910, L506.0400, L500.4050, L501.9520, L100.0100, L500.4100 #### [facility] [address], [address] Platelets (Bld) [#/Vol] 232 10*3/uL Normal 150-450 [facility] Comment on above: Order Comment: Order Date: 06/05/24 Order Info: 0184-1 - CBCD Performed By: #### L 501.9910, L506.0400, L500.4050, L501.9520, L100.0100, L500.4100 #### [facility] [address], [address] RBC (Bld) [#/Vol] 5.13 10*6/uL Normal 4.6-6.2 [facility] Comment on above: Order Comment: Order Date: 06/05/24 Order Info: 0184-1 - CBCD Performed By: #### L 501.9910, L506.0400, L500.4050, L501.9520, L100.0100, L500.4100 #### [facility] [address] [place], [address] RDW SD 39.2 fl Normal 35.1-43.9 [facility] Comment on above: Order Comment: Order Date: 06/05/24 Order Info: 0184-1 - CBCD Performed By: #### L 501.9910, L506.0400, L500.4050, L501.9520, L100.0100, L500.4100 #### [facility] [address] [place], [place], [id number] WBC (Bld) [#/Vol] 5.6 10*3/uL Normal 4.4-11.0 [facility] Comment on above: Order Comment: Order Date: 06/05/24 Order Info: 0184-1 - CBCD Performed By: #### L 501.9910, L506.0400, L500.4050, L501.9520, L100.0100, L500.4100 #### [facility] [address] [place], [place], [id number] Calculated very low density lipoprotein (VLDL) cholesterol measurementOrdered By: Kailyn Ibrahim on 05-29-2025 Calculated very low density lipoprotein (VLDL) cholesterol measurement 22 mg/dL 5-40 [facility] Carbon dioxide, total [Moles /volume] in Central venous bloodOrdered By: Kailyn Ibrahim on 05-29-2025 CO2 [Moles/Vol] 23.2 mmol/L 21.0-32.0 [facility] Chloride assayOrdered By: Abbie Ibrahim on 05-29-2025 Chloride [Moles/Vol] 106 mmol/L 98-108 [facility] Comprehensive Metabolic Prof ilon 05-29-2025 Albumin [Mass/Vol] 3.6 g/dL Normal 3.5-5.0 [facility] Comment on above: Order Comment: Order Date: 06/05/24 Order Info: 0184-1 - CBCD Performed By: #### L 501.9910, L506.0400, L500.4050, L501.9520, L100.0100, L500.4100 #### [facility] [address] [place], [place], [id number] Albumin/Globulin [Mass ratio] 1.1 {ratio} Normal 0.9-2.4 [facility] Comment on above: Order Comment: Order Date: 06/05/24 Order Info: 0184-1 - CBCD Performed By: #### L 501.9910, L506.0400, L500.4050, L501.9520, L100.0100, L500.4100 #### [facility] [address], [address] ALK PHOS 72 U/L Normal 40-129 [facility] Comment on above: Order Comment: Order Date: 06/05/24 Order Info: 018- - CBCD Performed By: #### L 501.9910, L506.0400, L500.4050, L501.9520, L100.0100, L500.4100 #### [facility] [address] [place], [address] ALT [Catalytic activity/Vol] 21 U/L Normal <=46 [facility] Comment on above: Order Comment: Order Date: 06/05/24 Order Info: 018- - CBCD Performed By: #### L 501.9910, L506.0400, L500.4050, L501.9520, L100.0100, L500.4100 #### [facility] [address] [place], [address] AST [Catalytic activity/Vol] 21 U/L Normal <=37 [facility] Comment on above: Order Comment: Order Date: 06/05/24 Order Info: 018- - CBCD Performed By: #### L 501.9910, L506.0400, L500.4050, L501.9520, L100.0100, L500.4100 #### [facility] [address] [place], [address] Bilirubin [Mass/Vol] 0.92 mg/dL Normal 0.00-1.30 [facility] Comment on above: Order Comment: Order Date: 06/05/24 Order Info: 018- - CBCD Performed By: #### L 501.9910, L506.0400, L500.4050, L501.9520, L100.0100, L500.4100 #### [facility] [address] [place], [address] BUN/CRE 16.0 RATIO Normal 10-20 [facility] Comment on above: Order Comment: Order Date: 06/05/24 Order Info: 018- - CBCD Performed By: #### L 501.9910, L506.0400, L500.4050, L501.9520, L100.0100, L500.4100 #### [facility] [address] [place], [address] Calcium [Mass/Vol] 9.1 mg/dL Normal 7.6-11.0 [facility] Comment on above: Order Comment: Order Date: 06/05/24 Order Info: 018- - CBCD Performed By: #### L 501.9910, L506.0400, L500.4050, L501.9520, L100.0100, L500.4100 #### [facility] [address] [place], [address] Chloride [Moles/Vol] 106 mmol/L Normal 98-108 [facility] Comment on above: Order Comment: Order Date: 06/05/24 Order Info: 018- - CBCD Performed By: #### L 501.9910, L506.0400, L500.4050, L501.9520, L100.0100, L500.4100 #### [facility] [address] [place], [address] CO2 [Moles/Vol] 23.2 mmol/L Normal 21.0-32.0 [facility] Comment on above: Order Comment: Order Date: 06/05/24 Order Info: 018- - CBCD Performed By: #### L 501.9910, L506.0400, L500.4050, L501.9520, L100.0100, L500.4100 #### [facility] [address] [place], [place], [id number] Creatinine [Mass/Vol] 0.97 mg/dL Normal 0.70-1.20 [facility] Comment on above: Order Comment: Order Date: 06/05/24 Order Info: 0184-1 - CBCD Performed By: #### L 501.9910, L506.0400, L500.4050, L501.9520, L100.0100, L500.4100 #### [facility] [address] [place], [address] GAP 11 Normal 5-15 [facility] Comment on above: Order Comment: Order Date: 06/05/24 Order Info: 018- - CBCD Performed By: #### L 501.9910, L506.0400, L500.4050, L501.9520, L100.0100, L500.4100 #### [facility] [address] [place], [address] GFR/1.73 sq M.predicted among non-blacks MDRD (S/P/Bld) [Vol rate/Area] 92 mL/min/{1.73_m2} Normal >60 [facility] Comment on above: Order Comment: Order Date: 06/05/24 Order Info: 0184- - CBCD Result Comment: mL/m in/1.73m2 CKD-EPI Creatinine Equation (2020) Performed By: #### L 501.9910, L506.0400, L500.4050, L501.9520, L100.0100, L500.4100 #### [facility] [address] [place], [place], [id number] [phone] Globulin (S) [Mass/Vol] 3.4 g/dL Normal 2.2-4.2 [facility] Comment on above: Order Comment: Order Date: 06/05/24 Order Info: 0184- - CBCD Performed By: #### L 501.9910, L506.0400, L500.4050, L501.9520, L100.0100, L500.4100 #### [facility] [address] [place], [address] Glucose [Mass/Vol] 113 mg/dL High 70-99 [facility] Comment on above: Order Comment: Order Date: 06/05/24 Order Info: 01802-04 - CBCD Performed By: #### L 501.9910, L506.0400, L500.4050, L501.9520, L100.0100, L500.4100 #### [facility] [address] [place], [address] Potassium [Moles/Vol] 3.6 mmol/L Normal 3.3-5.1 [facility] Comment on above: Order Comment: Order Date: 06/05/24 Order Info: 01802-04 - CBCD Performed By: #### L 501.9910, L506.0400, L500.4050, L501.9520, L100.0100, L500.4100 #### [facility] [address] [place], [address] Sodium [Moles/Vol] 140 mmol/L Normal 133-145 [facility] Comment on above: Order Comment: Order Date: 06/05/24 Order Info: 01802-04 - CBCD Performed By: #### L 501.9910, L506.0400, L500.4050, L501.9520, L100.0100, L500.4100 #### [facility] [address] [place], [address] T PROT 7.0 g/dL Normal 5.9-8.4 [facility] Comment on above: Order Comment: Order Date: 06/05/24 Order Info: 01802-04 - CBCD Performed By: #### L 501.9910, L506.0400, L500.4050, L501.9520, L100.0100, L500.4100 #### [facility] [address] [place], [place], [address] Urea nitrogen [Mass/Vol] 16 mg/dL Normal 4-19 [facility] Comment on above: Order Comment: Order Date: 06/05/24 Order Info: 0184-1 - CBCD Performed By: #### L 501.9910, L506.0400, L500.4050, L501.9520, L100.0100, L500.4100 #### [facility] [address] [place], [address] Eosinophil percentageOrdered By: Kailyn Ibrahim on 05-29-2025 Eosinophils/100 WBC (Bld) 3.6 % 0-5 [facility] Erythrocyte distribution wid th ratioOrdered By: Kailyn Ibrahim on 05-29-2025 Erythrocyte distribution width (RBC) [Ratio] 12.1 % 11.6-14.6 [facility] Erythrocyte distribution wid th standard deviationOrdered By: Kailyn Ibrahim on 05-29-2025 Erythrocyte distribution width (RBC) [Ratio] 39.2 fl 35.1-43.9 [facility] Glomerular filtration rate ( GFR) estimation/1.73 sq m using serum, plasma, or whole bOrdered By: Kailyn Ibrahim on 05-29-2025 GFR/1.73 sq M.predicted among non-blacks MDRD (S/P/Bld) [Vol rate/Area] 92 mL/min/{1.73_m2} >60 [facility] Comment on above: mL/min/1.73m2 CKD-EP I Creatinine Equation (2020) Hematocrit Auto (Bld) [Volum e fraction]Ordered By: Kailyn Ibrahim on 05-29-2025 Hematocrit (Bld) [Volume fraction] 44.8 % 40-54 [facility] Hemoglobin measurementOrdere d By: Kailyn Ibrahim on 05-29-2025 Hemoglobin (Bld) [Mass/Vol] 15.3 g/dL 13.0-16.5 [facility] Immature granulocytes/100 WB C Auto (Bld)Ordered By: Kailyn Ibrahim on 05-29-2025 Immature granulocytes/100 WBC (Bld) 0.200 % 0.0-0.9 [facility] Comment on above: IG% - Immature Granu locytes (promyelocytes, myelocytes and metamyelocytes) > 1% indicates that a LEFT SHIFT is Present. Ketones Test strip Ql (U)Ord ered By: Kailyn Ibrahim on 05-29-2025 Ketones Ql (U) Negative Negative [facility] LDL calc ser/plasOrdered By: Kailyn Ibrahim on 05-29-2025 Cholesterol in LDL [Mass/Vol] 56 mg/dL [facility] Comment on above: Euxvajrxof=983-189 m g/dL & Higher Smge=387 mg/dL or greater Laboratory - Chemistry and C hemistry - challengeOrdered By: Kailyn Ibrahim on 05-29-2025 AST [Catalytic activity/Vol] 21 U/L <38 [facility] Lipid Profileon 05-29-2025 CHOL:HDL 2.72 Normal [facility] Comment on above: Order Comment: Order Date: 06/05/24 Order Info: 0184-1 - CBCD Performed By: #### L 501.9910, L506.0400, L500.4050, L501.9520, L100.0100, L500.4100 #### [facility] [address] [place], [address] Cholesterol [Mass/Vol] 123 mg/dL Normal <=200 [facility] Comment on above: Order Comment: Order Date: 06/05/24 Order Info: 0184-1 - CBCD Result Comment: Chol esterol level, Desirable <200 mg/dL Borderline high cholesterol 200-239 mg/dL High cholesterol >=240 mg/dL Recommendations of the NCEP Adult Treatment Panel for the following risk-cutoff thresholds for the [place] population. Performed By: #### L 501.9910, L506.0400, L500.4050, L501.9520, L100.0100, L500.4100 #### [facility] [address] [place], [address] Cholesterol in HDL [Mass/Vol] 45 mg/dL Normal [facility] Comment on above: Order Comment: Order Date: 06/05/24 Order Info: 0184-1 - CBCD Result Comment: Nisha onal Cholesterol Education Program (NCEP) guidelines: <40 mg/dL: Low HDL-cholesterol (major risk factor for CHD) >= 60 mg/dL: High HDL-cholesterol (negative risk factor for CHD) HDL-cholesterol is affected by a number of factors, e.g. smoking, exercise, hormones, sex and age. Performed By: #### L 501.9910, L506.0400, L500.4050, L501.9520, L100.0100, L500.4100 #### [facility] [address] [place], [address] Cholesterol in LDL [Mass/Vol] 56 mg/dL Normal [facility] Comment on above: Order Comment: Order Date: 06/05/24 Order Info: 0184-1 - CBCD Result Comment: Bord glafsr=088-489 mg/dL Higher Fqcy=524 mg/dL or greater Performed By: #### L 501.9910, L506.0400, L500.4050, L501.9520, L100.0100, L500.4100 #### [facility] [address] [place], [address] Cholesterol in VLDL [Mass/Vol] 22 mg/dL Normal 5-40 [facility] Comment on above: Order Comment: Order Date: 06/05/24 Order Info: 0184-1 - CBCD Performed By: #### L 501.9910, L506.0400, L500.4050, L501.9520, L100.0100, L500.4100 #### [facility] [address] [place], [address] Triglyceride [Mass/Vol] 111 mg/dL Normal [facility] Comment on above: Order Comment: Order Date: 06/05/24 Order Info: 0184-1 - CBCD Result Comment: The drugs N-Acetylcysteine and Metamizole may falsely depress this assay. Normal range: <150 mg/dL Borderline High: 150-199 mg/dL High: 200-499 mg/dL Very High: >500 mg/dL Performed By: #### L 501.9910, L506.0400, L500.4050, L501.9520, L100.0100, L500.4100 #### [facility] [address] [place], [address] MCV (mean corpuscular volume ) determinationOrdered By: Kailyn Ibrahim on 05-29-2025 MCV (RBC) [Entitic vol] 87.3 fL 80-94 [facility] Mean corpuscular hemoglobin (MCH) determinationOrdered By: Kailyn Ibrahim on 05-29-2025 MCH (RBC) [Entitic mass] 29.8 pg 27.0-32.0 [facility] Mean corpuscular hemoglobin concentration (MCHC) determinationOrdered By: Kailyn Ibrahim on 05-29-2025 MCHC (RBC) [Mass/Vol] 34.2 g/dL 32-36 [facility] Mean platelet volume determi nationOrdered By: Kailyn Ibrahim on 05-29-2025 Platelet mean volume (Bld) [Entitic vol] 9.9 fL 6.2-12.0 [facility] Microscopic analysis of urin e for red blood cells (RBC)Ordered By: Kailyn Ibrahim on 05-29-2025 Microscopic analysis of urine for red blood cells (RBC) 0 SEEN /hpf 0-5 [facility] Monocyte percentageOrdered B y: Kailyn Ibrahim on 05-29-2025 Monocytes/100 WBC (Bld) 10.0 % 0-10 [facility] Mucus LM Ql (Urine sed)Order ed By: Kailyn Ibrahim on 05-29-2025 Mucus Ql (Urine sed) 1+ /hpf [facility] Neutrophil percentageOrdered By: Kailyn Ibrahim on 05-29-2025 Neutrophils/100 WBC (Bld) 46.3 % Low 47-70 [facility] Nitrite Test strip Ql (U)Ord ered By: Kailyn Ibrahim on 05-29-2025 Nitrite Ql (U) Negative Negative [facility] Nucleated red blood cell per centageOrdered By: Kailyn Ibrahim on 05-29-2025 Nucleated RBC/100 WBC (Bld) [Ratio] 0 % 0-5 [facility] Platelet countOrdered By: Abbie Ibrahim on 05-29-2025 Platelets (Bld) [#/Vol] 232 10*3/uL 150-450 [facility] Potassium measurement (mass/ volume)Ordered By: Kailyn Ibrahim on 05-29-2025 Potassium (Unsp spec) [Mass/Vol] 3.6 mmol/L 3.3-5.1 [facility] Protein Test strip Ql (U)Ord ered By: Kailyn Ibrahim on 05-29-2025 Protein Ql (U) 15 mg/dl High Negative [facility] RBC Auto (Bld) [#/Vol]Ordere d By: Kailyn Ibrahim on 05-29-2025 RBC (Bld) [#/Vol] 5.13 10*6/uL 4.6-6.2 [facility] Screening total cholesterol/ high density lipoprotein (HDL) cholesterol ratioOrdered By: Kailyn Ibrahim on 05-29-2025 Cholesterol.total/Chol esterol in HDL [Mass ratio] 2.72 {ratio} [facility] Serum creatinine measurement (mass/volume)Ordered By: Kailyn Ibrahim on 05-29-2025 Creatinine [Mass/Vol] 0.97 mg/dL 0.70-1.20 [facility] Serum globulin measurementOr dered By: Kailyn Ibrahim on 05-29-2025 Globulin (S) [Mass/Vol] 3.4 g/dL 2.2-4.2 [facility] Serum glucose measurement (m ass/volume)Ordered By: Kailyn Ibrahim on 05-29-2025 Glucose [Mass/Vol] 113 mg/dL High 70-99 [facility] Serum or plasma alanine cox otransferase (ALT) measurementOrdered By: Kailyn Ibrahim on 05-29-2025 ALT [Catalytic activity/Vol] 21 U/L <47 [facility] Serum or plasma albumin josselin urement (mass/volume)Ordered By: Kailyn Ibrahim on 05-29-2025 Albumin [Mass/Vol] 3.6 g/dL 3.5-5.0 [facility] Serum or plasma albumin/glob ulin mass ratioOrdered By: Kailyn Ibrahim on 05-29-2025 Albumin/Globulin [Mass ratio] 1.1 {ratio} 0.9-2.4 [facility] Serum or plasma alkaline chiki sphatase measurementOrdered By: Kailyn Ibrahim on 05-29-2025 ALP [Catalytic activity/Vol] 72 U/L 40-129 [facility] Serum or plasma calcium josselin urement (mass/volume)Ordered By: Kailyn Ibrahim on 05-29-2025 Calcium [Mass/Vol] 9.1 mg/dL 7.6-11.0 [facility] Serum or plasma cholesterol in HDL measurement (mass/volume)Ordered By: Kailyn Ibrahim on 05-29-2025 Cholesterol in HDL [Mass/Vol] 45 mg/dL >40 [facility] Comment on above: National Cholesterol Education Program (NCEP) guidelines:<40 mg/dL: Low HDL-cholesterol (major risk factor for CHD)>= 60 mg/dL: High HDL-cholesterol (negative risk factor for CHD)HDL-cholesterol is affected by a number of factors, e.g. smoking, exercise, hormones, sex and age. Serum or plasma cholesterol measurement (mass/volume)Ordered By: Kailyn Ibrahim on 05-29-2025 Cholesterol [Mass/Vol] 123 mg/dL <201 [facility] Comment on above: Cholesterol level, D esirable <200 mg/dLBorderline high cholesterol 200-239 mg/dLHigh cholesterol >=240 mg/dLRecommendations of the NCEP Adult Treatment Panel for the following risk-cutoff thresholds for the [place] population. Serum or plasma urea nitroge n measurement (mass/volume)Ordered By: Kailyn Ibrahim on 05-29-2025 Urea nitrogen [Mass/Vol] 16 mg/dL 4-19 [facility] Sodium levelOrdered By: Kailyn Ibrahim on 05-29-2025 Sodium [Moles/Vol] 140 mmol/L 133-145 [facility] Squamous epithelial cells de tection in urine sediment by light microscopyOrdered By: Kailyn Ibrahim on 05-29-2025 Epithelial cells.squamous LM Ql (Urine sed) 0-5 SEEN /hpf 0-5 [facility] T4 Free Directon 05-29-2025 T4 FREE DIRECT 2.40 ng/dL High 0.76-1.46 [facility] Comment on above: Order Comment: Order Date: 06/05/24 Order Info: 0184-1 - CBCD Performed By: #### L 501.9910, L506.0400, L500.4050, L501.9520, L100.0100, L500.4100 #### [facility] [address] [place], [place], [id number] T4 freeOrdered By: Kailyn zeng on 05-29-2025 Free T4 [Mass/Vol] 2.40 ng/dL High 0.76-1.46 [facility] TSH DL <= 0.005 mIU/L QnOrde red By: Kailyn Ibrahim on 05-29-2025 TSH Qn 0.009 uIU/mL Low 0.300-4.20 0 [facility] Thyroid Stim Hormone (TSH)on 05-29-2025 TSH 0.009 uIU/mL Low 0.300-4.20 0 [facility] Comment on above: Order Comment: Order Date: 06/05/24 Order Info: 0184-1 - CBCD Performed By: #### L 501.9910, L506.0400, L500.4050, L501.9520, L100.0100, L500.4100 #### [facility] [address] [place], [place], [id number] Total proteinOrdered By: Darshan Ibrahim on 05-29-2025 Protein [Mass/Vol] 7.0 g/dL 5.9-8.4 [facility] Triglycerides measurementOrd ered By: Kailyn Ibrahim on 05-29-2025 Triglyceride [Mass/Vol] 111 mg/dL <199 [facility] Comment on above: The drugs N-Acetylcy steine and Metamizole may falsely depress this assay. Normal range: <150 mg/dLBorderline High: 150-199 mg/dLHigh: 200-499 mg/dLVery High: >500 mg/dL Urinalysis, Completeon 05-29 EPI,SQUAMOUS 0-5 SEEN Normal 0-5 [facility] Comment on above: Order Comment: Urine , Random Performed By: #### L 400.0001 #### [facility] [address] [place], [address] Mucus Ql (Urine sed) 1+ /hpf Normal [facility] Comment on above: Order Comment: Urine , Random Performed By: #### L 400.0001 #### [facility] [address] [place], [address] WBC 0-5 SEEN Normal 0-5 [facility] Comment on above: Order Comment: Urine , Random Performed By: #### L 400.0001 #### [facility] [address] [place], [address] BACTERIA 0 SEEN Normal None Seen [facility] Comment on above: Order Comment: Urine , Random Performed By: #### L 400.0001 #### [facility] [address] [place], [address] RBC 0 SEEN Normal 0-5 [facility] Comment on above: Order Comment: Urine , Random Performed By: #### L 400.0001 #### [facility] [address] [place], [address] Urine clarityOrdered By: Darshan Ibrahim on 05-29-2025 Clarity (U) Clear Clear [facility] Urine color determinationOrd ered By: Kailyn Ibrahim on 05-29-2025 Color (U) Yellow Yellow [facility] Urine glucose detectionOrder ed By: Kailyn Ibrahim on 05-29-2025 Glucose Ql (U) Normal mg/dl Normal [facility] Urine leukocyte esterase det ection by dipstickOrdered By: Kailyn Ibrahim on 05-29-2025 Leukocyte esterase Test strip Ql (U) 25 /ul High Negative [facility] Urine pHOrdered By: Kailyn watkins on 05-29-2025 pH (U) 5.0 [pH] 5.0 - 8.0 [facility] Urine sediment bacteria coun t by microscopy (number/high power field)Ordered By: Kailyn Ibrahim on 05-29-2025 Bacteria LM.HPF (Urine sed) [#/Area] 0 /[HPF] None Seen [facility] Urine specific gravity measu rementOrdered By: Kailyn Ibrahim on 05-29-2025 Specific gravity (U) [Rel density] 1.020 1.002-1.03 0 [facility] Urine urobilinogen measureme ntOrdered By: Kailyn Ibrahim on 05-29-2025 Urobilinogen Ql (U) Normal mg/dl Normal [facility] White blood cell (WBC) count Ordered By: Kailyn Ibrahim on 05-29-2025 WBC (Bld) [#/Vol] 5.6 10*3/uL 4.4-11.0 [facility] White blood cell countOrdere d By: Kailyn Ibrahim on 05-29-2025 White blood cell count 0-5 SEEN /hpf 0-5 [facility] CBC W/Diff, Automatedon -2 Absolute Lymph 1.87 X10 3/uL Normal 0.83-4.51 [facility] Comment on above: Order Comment: Order Date: 06/05/24 Order Info: 0184-1 - CBCD Performed By: #### L 501.9910, L506.0400, L500.4050, L501.9520, L100.0100, L500.4100 #### [facility] [address] [facility] [place], [place], [id number] Absolute Neut 3.9 X10 3/uL Normal 2.0-7.7 [facility] Comment on above: Order Comment: Order Date: 06/05/24 Order Info: 0184-1 - CBCD Performed By: #### L 501.9910, L506.0400, L500.4050, L501.9520, L100.0100, L500.4100 #### [facility] [address] [facility] [place], [address] Basophils/100 WBC (Bld) 0.8 % Normal 0-1 [facility] Comment on above: Order Comment: Order Date: 06/05/24 Order Info: 0184-1 - CBCD Performed By: #### L 501.9910, L506.0400, L500.4050, L501.9520, L100.0100, L500.4100 #### [facility] [address], [address] Eosinophils/100 WBC (Bld) 1.7 % Normal 0-5 [facility] Comment on above: Order Comment: Order Date: 06/05/24 Order Info: 0184- - CBCD Performed By: #### L 501.9910, L506.0400, L500.4050, L501.9520, L100.0100, L500.4100 #### [facility] [address] [place], [address] Erythrocyte distribution width (RBC) [Ratio] 12.9 % Normal 11.6-14.6 [facility] Comment on above: Order Comment: Order Date: 06/05/24 Order Info: 0184 - CBCD Performed By: #### L 501.9910, L506.0400, L500.4050, L501.9520, L100.0100, L500.4100 #### [facility] [address], [address] Hematocrit (Bld) [Volume fraction] 45.9 % Normal 40-54 [facility] Comment on above: Order Comment: Order Date: 06/05/24 Order Info: 0184- - CBCD Performed By: #### L 501.9910, L506.0400, L500.4050, L501.9520, L100.0100, L500.4100 #### [facility] [address] [place], [address] Hemoglobin (Bld) [Mass/Vol] 15.9 g/dL Normal 13.0-16.5 [facility] Comment on above: Order Comment: Order Date: 06/05/24 Order Info: 0184- - CBCD Performed By: #### L 501.9910, L506.0400, L500.4050, L501.9520, L100.0100, L500.4100 #### [facility] [address] [place], [address] IG% 0.500 Normal 0.0-0.9 [facility] Comment on above: Order Comment: Order Date: 06/05/24 Order Info: 0184-1 - CBCD Result Comment: IG% - Immature Granulocytes (promyelocytes, myelocytes and metamyelocytes) > 1% indicates that a LEFT SHIFT is Present. Performed By: #### L 501.9910, L506.0400, L500.4050, L501.9520, L100.0100, L500.4100 #### [facility] [address] [place], [address] Lymphocytes/100 WBC (Bld) 28.2 % Normal 19-41 [facility] Comment on above: Order Comment: Order Date: 06/05/24 Order Info: 0184-1 - CBCD Performed By: #### L 501.9910, L506.0400, L500.4050, L501.9520, L100.0100, L500.4100 #### [facility] [address] [place], [address] MCH (RBC) [Entitic mass] 30.8 pg Normal 27.0-32.0 [facility] Comment on above: Order Comment: Order Date: 06/05/24 Order Info: 0184-1 - CBCD Performed By: #### L 501.9910, L506.0400, L500.4050, L501.9520, L100.0100, L500.4100 #### [facility] [address] [place], [address] MCHC (RBC) [Mass/Vol] 34.6 g/dL Normal 32-36 [facility] Comment on above: Order Comment: Order Date: 06/05/24 Order Info: 0184-1 - CBCD Performed By: #### L 501.9910, L506.0400, L500.4050, L501.9520, L100.0100, L500.4100 #### [facility] [address] [place], [address] MCV (RBC) [Entitic vol] 89.0 fL Normal 80-94 [facility] Comment on above: Order Comment: Order Date: 06/05/24 Order Info: 018- - CBCD Performed By: #### L 501.9910, L506.0400, L500.4050, L501.9520, L100.0100, L500.4100 #### [facility] [address] [place], [address] Monocytes/100 WBC (Bld) 10.0 % Normal 0-10 [facility] Comment on above: Order Comment: Order Date: 06/05/24 Order Info: 0184 - CBCD Performed By: #### L 501.9910, L506.0400, L500.4050, L501.9520, L100.0100, L500.4100 #### [facility] [address] [place], [address] Neutrophils/100 WBC (Bld) 58.8 % Normal 47-70 [facility] Comment on above: Order Comment: Order Date: 06/05/24 Order Info: 0184- - CBCD Performed By: #### L 501.9910, L506.0400, L500.4050, L501.9520, L100.0100, L500.4100 #### [facility] [address] [place], [address] Nucleated RBC (Bld) [#/Vol] 0 10*3/uL Normal 0-5 [facility] Comment on above: Order Comment: Order Date: 06/05/24 Order Info: 0184- - CBCD Performed By: #### L 501.9910, L506.0400, L500.4050, L501.9520, L100.0100, L500.4100 #### [facility] [address] [place], [address] Platelet mean volume (Bld) [Entitic vol] 9.7 fL Normal 6.2-12.0 [facility] Comment on above: Order Comment: Order Date: 06/05/24 Order Info: 018- - CBCD Performed By: #### L 501.9910, L506.0400, L500.4050, L501.9520, L100.0100, L500.4100 #### [facility] [address] [place], [address] Platelets (Bld) [#/Vol] 237 10*3/uL Normal 150-450 [facility] Comment on above: Order Comment: Order Date: 06/05/24 Order Info: 01802-04 - CBCD Performed By: #### L 501.9910, L506.0400, L500.4050, L501.9520, L100.0100, L500.4100 #### [facility] [address] [place], [address] RBC (Bld) [#/Vol] 5.16 10*6/uL Normal 4.6-6.2 [facility] Comment on above: Order Comment: Order Date: 06/05/24 Order Info: 01802-04 - CBCD Performed By: #### L 501.9910, L506.0400, L500.4050, L501.9520, L100.0100, L500.4100 #### [facility] [address] [place], [address] RDW SD 42.3 fl Normal 35.1-43.9 [facility] Comment on above: Order Comment: Order Date: 06/05/24 Order Info: 018- - CBCD Performed By: #### L 501.9910, L506.0400, L500.4050, L501.9520, L100.0100, L500.4100 #### [facility] [address] [place], [address] WBC (Bld) [#/Vol] 6.6 10*3/uL Normal 4.4-11.0 [facility] Comment on above: Order Comment: Order Date: 06/05/24 Order Info: 0184-1 - CBCD Performed By: #### L 501.9910, L506.0400, L500.4050, L501.9520, L100.0100, L500.4100 #### [facility] [address] [place], [address] Comprehensive Metabolic Prof ilon 11-28-2024 Albumin [Mass/Vol] 3.6 g/dL Normal 3.2-5.0 [facility] Comment on above: Order Comment: Order Date: 06/05/24 Order Info: 0786-1 - CMP Order Info: 52714-0 - LIPID Order Info: 3015-3 - TSH Order Info: 285-1 - PSA Order Info: 3024-7 - T4F Performed By: #### L 501.9910, L506.0400, L500.4050, L501.9520, L100.0100, L500.4100 #### [facility] [address] [place], [address] Albumin/Globulin [Mass ratio] 0.9 {ratio} Normal 0.9-2.4 [facility] Comment on above: Order Comment: Order Date: 06/05/24 Order Info: 0786-1 - CMP Order Info: 16443-8 - LIPID Order Info: 3016-3 - TSH Order Info: 2857-1 - PSA Order Info: 3024-7 - T4F Performed By: #### L 501.9910, L506.0400, L500.4050, L501.9520, L100.0100, L500.4100 #### [facility] [address] [place], [address] ALK P 78 U/L Normal 45-117 [facility] Comment on above: Order Comment: Order Date: 06/05/24 Order Info: 785-1 - CMP Order Info: - LIPID Order Info: 3016-01 - TSH Order Info: 2856-11 - PSA Order Info: 7 - T4F Performed By: #### L 501.9910, L506.0400, L500.4050, L501.9520, L100.0100, L500.4100 #### [facility] [address] [place], [address] ALT [Catalytic activity/Vol] 35 U/L Normal 16-61 [facility] Comment on above: Order Comment: Order Date: 06/05/24 Order Info: 785- - CMP Order Info: - LIPID Order Info: 3016-01 - TSH Order Info: 2856-11 - PSA Order Info: 7 - T4F Performed By: #### L 501.9910, L506.0400, L500.4050, L501.9520, L100.0100, L500.4100 #### [facility] [address] [place], [address] AST [Catalytic activity/Vol] 31 U/L Normal 15-37 [facility] Comment on above: Order Comment: Order Date: 06/05/24 Order Info: 785- - CMP Order Info: - LIPID Order Info: 3016-01 - TSH Order Info: 2856-11 - PSA Order Info: 3023-7 - T4F Result Comment: Mode rate Hemolysis, Result may be falsely increased. Performed By: #### L 501.9910, L506.0400, L500.4050, L501.9520, L100.0100, L500.4100 #### [facility] [address] [place], [address] Bilirubin [Mass/Vol] 1.20 mg/dL High 0.20-1.00 [facility] Comment on above: Order Comment: Order Date: 06/05/24 Order Info: 785-1 - CMP Order Info: - LIPID Order Info: 3016-01 - TSH Order Info: 2856-11 - PSA Order Info: 3027 - T4F Result Comment: For patients on eltrombopag therapy, use of Dimension Horatio TBIL is not recommended. Performed By: #### L 501.9910, L506.0400, L500.4050, L501.9520, L100.0100, L500.4100 #### [facility] [address] [place], [address] BUN/CRE 15.4 RATIO Normal 10-20 [facility] Comment on above: Order Comment: Order Date: 06/05/24 Order Info: 785- - CMP Order Info: - LIPID Order Info: 3016-01 - TSH Order Info: 2856-11 - PSA Order Info: 7 - T4F Performed By: #### L 501.9910, L506.0400, L500.4050, L501.9520, L100.0100, L500.4100 #### [facility] [address] [place], [address] CA,Total 9.1 mg/dL Normal 8.5-10.1 [facility] Comment on above: Order Comment: Order Date: 06/05/24 Order Info: 785-11 - CMP Order Info: - LIPID Order Info: 3016-01 - TSH Order Info: 2856-11 - PSA Order Info: 7 - T4F Performed By: #### L 501.9910, L506.0400, L500.4050, L501.9520, L100.0100, L500.4100 #### [facility] [address] [place], [address] Chloride [Moles/Vol] 106 mmol/L Normal 98-107 [facility] Comment on above: Order Comment: Order Date: 06/05/24 Order Info: 785-11 - CMP Order Info: - LIPID Order Info: 3016-3 - TSH Order Info: 2856-11 - PSA Order Info: 7 - T4F Performed By: #### L 501.9910, L506.0400, L500.4050, L501.9520, L100.0100, L500.4100 #### [facility] [address] [place], [address] CO2 [Moles/Vol] 27.0 mmol/L Normal 21.0-32.0 [facility] Comment on above: Order Comment: Order Date: 06/05/24 Order Info: 785- - CMP Order Info: - LIPID Order Info: 3016-01 - TSH Order Info: 2856-11 - PSA Order Info: 3024-05 - T4F Performed By: #### L 501.9910, L506.0400, L500.4050, L501.9520, L100.0100, L500.4100 #### [facility] [address] [place], [address] Creatinine [Mass/Vol] 1.04 mg/dL Normal 0.70-1.30 [facility] Comment on above: Order Comment: Order Date: 06/05/24 Order Info: 785-11 - CMP Order Info: 96721-7 - LIPID Order Info: 3016-01 - TSH Order Info: 2856-11 - PSA Order Info: 3024-05 - T4F Result Comment: The validity of the calculated GFR GFRAA in patients over 70 years has not been determined. Clinical correlation is essential. Performed By: #### L 501.9910, L506.0400, L500.4050, L501.9520, L100.0100, L500.4100 #### [facility] [address] [place], [address] EST GFR - AA 95 mL/min Normal >60 [facility] Comment on above: Order Comment: Order Date: 06/05/24 Order Info: 785-1 - CMP Order Info: 81832-4 - LIPID Order Info: 3016-01 - TSH Order Info: 2856-11 - PSA Order Info: 3024-7 - T4F Result Comment: Afri can [place] GFR Calc Performed By: #### L 501.9910, L506.0400, L500.4050, L501.9520, L100.0100, L500.4100 #### [facility] [address] [place], [address] GAP 7 Normal 5-15 [facility] Comment on above: Order Comment: Order Date: 06/05/24 Order Info: 785-11 - CMP Order Info: - LIPID Order Info: 3016-01 - TSH Order Info: 2856-11 - PSA Order Info: 3024-05 - T4F Performed By: #### L 501.9910, L506.0400, L500.4050, L501.9520, L100.0100, L500.4100 #### [facility] [address] [place], [address] GFR/1.73 sq M.predicted among non-blacks MDRD (S/P/Bld) [Vol rate/Area] 79 mL/min/{1.73_m2} Normal >60 [facility] Comment on above: Order Comment: Order Date: 06/05/24 Order Info: 785-11 - CMP Order Info: - LIPID Order Info: 3016-01 - TSH Order Info: 2856-11 - PSA Order Info: 3024-05 - T4F Result Comment: Non- GFR Calc Performed By: #### L 501.9910, L506.0400, L500.4050, L501.9520, L100.0100, L500.4100 #### [facility] [address] [place], [address] Globulin (S) [Mass/Vol] 4.0 g/dL Normal 2.2-4.2 [facility] Comment on above: Order Comment: Order Date: 06/05/24 Order Info: 785-11 - CMP Order Info: - LIPID Order Info: 3016-01 - TSH Order Info: 2856-11 - PSA Order Info: 7 - T4F Performed By: #### L 501.9910, L506.0400, L500.4050, L501.9520, L100.0100, L500.4100 #### [facility] [address] [place], [address] Glucose [Mass/Vol] 95 mg/dL Normal 74-106 [facility] Comment on above: Order Comment: Order Date: 06/05/24 Order Info: 785-11 - CMP Order Info: - LIPID Order Info: 3016-01 - TSH Order Info: 2856-11 - PSA Order Info: 3024-05 - T4F Performed By: #### L 501.9910, L506.0400, L500.4050, L501.9520, L100.0100, L500.4100 #### [facility] [address] [place], [address] Potassium [Moles/Vol] 4.1 mmol/L Normal 3.5-5.1 [facility] Comment on above: Order Comment: Order Date: 06/05/24 Order Info: 785-11 - CMP Order Info: - LIPID Order Info: 3016-01 - TSH Order Info: 2856-11 - PSA Order Info: 3024-05 - T4F Result Comment: Mode rate Hemolysis, Result may be falsely increased. Performed By: #### L 501.9910, L506.0400, L500.4050, L501.9520, L100.0100, L500.4100 #### [facility] [address] [place], [address] Sodium [Moles/Vol] 140 mmol/L Normal 136-145 [facility] Comment on above: Order Comment: Order Date: 06/05/24 Order Info: 785-11 - CMP Order Info: - LIPID Order Info: 3016-01 - TSH Order Info: 2856-11 - PSA Order Info: 7 - T4F Performed By: #### L 501.9910, L506.0400, L500.4050, L501.9520, L100.0100, L500.4100 #### [facility] [address] [place], [place], [address] T PROT 7.6 g/dL Normal 6.4-8.2 [facility] Comment on above: Order Comment: Order Date: 06/05/24 Order Info: 86-1 - CMP Order Info: 41786-5 - LIPID Order Info: 3 - TSH Order Info: 2856-11 - PSA Order Info: 3024-05 - T4F Performed By: #### L 501.9910, L506.0400, L500.4050, L501.9520, L100.0100, L500.4100 #### [facility] [address] [place], [place], [address] Urea nitrogen [Mass/Vol] 16 mg/dL Normal 7-18 [facility] Comment on above: Order Comment: Order Date: 06/05/24 Order Info: 785-11 - CMP Order Info: - LIPID Order Info: 3016-01 - TSH Order Info: 2856-11 - PSA Order Info: 3024-05 - T4F Performed By: #### L 501.9910, L506.0400, L500.4050, L501.9520, L100.0100, L500.4100 #### [facility] [address] [place], [place], [address] Lipid Profileon 11-28-2024 Cholesterol [Mass/Vol] 196 mg/dL Normal 200 [facility] Comment on above: Order Comment: Order Date: 06/05/24 Order Info: 785-11 - CMP Order Info: - LIPID Order Info: 3 - TSH Order Info: 2856-11 - PSA Order Info: 30247 - T4F Result Comment: <200 mg/dL Desirable 200-240 mg/dL Borderline >240 mg/dL High Risk Performed By: #### L 501.9910, L506.0400, L500.4050, L501.9520, L100.0100, L500.4100 #### [facility] [address] [place], [address] Cholesterol in HDL [Mass/Vol] 65 mg/dL Normal [facility] Comment on above: Order Comment: Order [...] 501.9910, L506.0400, L500.4050, L501.9520, L100.0100, L500.4100 #### [facility] [address] [place], [address] Cholesterol in LDL [Mass/Vol] 106 mg/dL Normal 0-130 [facility] Comment on above: Order Comment: Order Date: 06/05/24 Order Info: 785-11 - CMP Order Info: - LIPID Order Info: 3016-01 - TSH Order Info: 2856-11 - PSA Order Info: 7 - T4F Performed By: #### L 501.9910, L506.0400, L500.4050, L501.9520, L100.0100, L500.4100 #### [facility] [address] [place], [address] Cholesterol in VLDL [Mass/Vol] 25 mg/dL Normal 5-40 [facility] Comment on above: Order Comment: Order Date: 06/05/24 Order Info: 785-11 - CMP Order Info: - LIPID Order Info: 3016-01 - TSH Order Info: 2856-11 - PSA Order Info: 7 - T4F Performed By: #### L 501.9910, L506.0400, L500.4050, L501.9520, L100.0100, L500.4100 #### [facility] [address] [place], [address] Triglyceride [Mass/Vol] 125 mg/dL Normal [facility] Comment on above: Order Comment: Order Date: 06/05/24 Order Info: 0786- - CMP Order Info: 68643-5 - LIPID Order Info: 3 - TSH [...] 501.9910, L506.0400, L500.4050, L501.9520, L100.0100, L500.4100 #### [facility] [address] [place], [place], [id number] PSA,Total - Annual Screenon 11-28-2024 PSA,TOT SCREEN 0.54 ng/mL Normal 0.00-4.00 [facility] Comment on above: Order Comment: Order Date: 06/05/24 Order Info: 0786- - CMP Order Info: - LIPID Order Info: 3 - TSH Order Info: 2856-11 - PSA Order Info: 7 - T4F Result Comment: This test was performed using the TPSA assay method for the Given.to chemistry system. Values obtained with different assay methods cannot be used interchangably. When changing PSA assays in the course of monitoring a patient, additional sequential testing should be carried out to confirm baseline values. Performed By: #### L 501.9910, L506.0400, L500.4050, L501.9520, L100.0100, L500.4100 #### [facility] [address] [place], [address] T4 Free Directon 11-28-2024 T4 FREE DIRECT 0.88 ng/dL Normal 0.76-1.46 [facility] Comment on above: Order Comment: Order Date: 06/05/24 Order Info: 785-11 - CMP Order Info: [id number] - LIPID Order Info: 301-3 - TSH Order Info: 2856-11 - PSA Order Info: 3024-7 - T4F Performed By: #### L 501.9910, L506.0400, L500.4050, L501.9520, L100.0100, L500.4100 #### [facility] [address] [facility] [place], [address] Thyroid Stim Hormone (TSH)on 11-28-2024 TSH 2.540 uIU/mL Normal 0.358-3.74 0 [facility] Comment on above: Order Comment: Order Date: 06/05/24 Order Info: 785-11 - CMP Order Info: - LIPID Order Info: 3 - TSH Order Info: 2856-11 - PSA Order Info: 3024-7 - T4F Performed By: #### L 501.9910, L506.0400, L500.4050, L501.9520, L100.0100, L500.4100 #### [facility] [address] [facility] [place], [address] Foot min 3 Viewson 4 Foot min 3 Views [facility] [address] [place] [address] Foot min 3 Views MR#: [id number] Acct: [id number] Name: VINH COLBY Rep #: [id number] : 1970 M 54 From: [place] DO PCP: Dr. Kailyn Ibrahim MD Status: REG CLI Study: Foot min 3 Views Date of Exam: 08/30/24 Exam# [id number] Ordering Dr: Kailyn Ibrahim MD [id number] INDICATION: Pain, possible heel spur EXAMINATION/TECHNIQUE: X-RAY [...] 16:56 EDT Reading Location ID and State: [facility] / [place] Tel [phone], Service support , CC: Dr. 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 Chloride [Moles/Vol] 107 mmol/L 98-107 [facility] Eosinophils/100 WBC (Bld) 0.7 % 0-5 [facility] Glucose [Mass/Vol] 91 mg/dL 74-106 [facility] Neutrophils (Bld) [#/Vol] 3.2 10*3/uL 2.0-7.7 [facility] Neutrophils/100 WBC (Bld) 58.9 % 47-70 [facility] Potassium [Moles/Vol] 4.3 mmol/L 3.5-5.1 [facility] Protein [Mass/Vol] 7.6 g/dL 6.4-8.2 [facility] Sodium [Moles/Vol] 139 mmol/L 136-145 [facility] WBC (Bld) [#/Vol] 5.4 10*3/uL 4.4-11.0 [facility] Bilirubin Test strip Ql (U)O rdered By: Kailyn Ibrahim on 05-17-2023 Bilirubin Ql (U) Negative Negative [facility] Blood erythrocytes count (nu mber/volume)Ordered By: Kailyn Ibrahim on 05-17-2023 RBC (Bld) [#/Vol] 5.13 10*6/uL 4.6-6.2 [facility] Blood hemoglobin measurement (mass/volume)Ordered By: Kailyn Ibrahim on 05-17-2023 Hemoglobin (Bld) [Mass/Vol] 16.1 g/dL 13.0-16.5 [facility] Blood lymphocytes/100 leukoc ytesOrdered By: Kailyn Ibrahim on 05-17-2023 Lymphocytes/100 WBC (Bld) 29.5 % 19-41 [facility] Blood monocytes/100 leukocyt esOrdered By: Kailyn Ibrahim on 05-17-2023 Monocytes/100 WBC (Bld) 9.6 % 0-10 [facility] Blood platelet mean volumeOr dered By: Kailyn Ibrahim on 05-17-2023 Platelet mean volume (Bld) [Entitic vol] 10.2 fL 6.2-12.0 [facility] Determination of erythrocyte mean corpuscular volume (MCV)Ordered By: Kailyn Ibrahim on 05-17-2023 MCV (RBC) [Entitic vol] 89.3 fL 80-94 [facility] Hematocrit Auto (Bld) [Volum e fraction]Ordered By: Kailyn Ibrahim on 05-17-2023 Hematocrit (Bld) [Volume fraction] 45.8 % 40-54 [facility] Ketones Test strip Ql (U)Ord ered By: Kailyn Ibrahim on 05-17-2023 Ketones Ql (U) Negative Negative [facility] - Chemistry and C hemistry - challengeOrdered By: Kailyn Ibrahim on 05-17-2023 ALP [Catalytic activity/Vol] 83 U/L 45-117 [facility] ALT [Catalytic activity/Vol] 38 U/L 16-61 [facility] CO2 [Moles/Vol] 27.0 mmol/L 21.0-32.0 [facility] Free T4 [Mass/Vol] 1.02 ng/dL 0.76-1.46 [facility] Globulin (S) [Mass/Vol] 4.0 g/dL 2.2-4.2 [facility] Urea nitrogen/Creatinine [Mass ratio] 16.5 mg/mg 10-20 [facility] - Hematology and Cell countsOrdered By: Kailyn Ibrahim on 05-17-2023 Erythrocyte distribution width (RBC) [Entitic vol] 41.1 fL 35.1-43.9 [facility] Erythrocyte distribution width (RBC) [Ratio] 12.6 % 11.6-14.6 [facility] Immature granulocytes/100 WBC (Bld) 0.400 % 0.0-0.9 [facility] Comment on above: IG% - Immature Granu locytes (promyelocytes, myelocytes and metamyelocytes) > 1% indicates that a LEFT SHIFT is Present. MCH (RBC) [Entitic mass] 31.4 pg 27.0-32.0 [facility] Nucleated RBC/100 WBC (Bld) [Ratio] 0 % 0-5 [facility] MCHC Auto (RBC) [Mass/Vol]Or dered By: Kailyn Ibrahim on 05-17-2023 MCHC (RBC) [Mass/Vol] 35.2 g/dL 32-36 [facility] Mucus LM Ql (Urine sed)Order ed By: Kailyn Ibrahim on 05-17-2023 Mucus Ql (Urine sed) 0 SEEN /hpf [facility] Nitrite Test strip Ql (U)Ord ered By: Kailyn Ibrahim on 05-17-2023 Nitrite Ql (U) Negative Negative [facility] No Panel InformationOrdered By: Kailyn Ibrahim on 05-17-2023 Estimated GFR (MDRD) Amer 91 mL/min >60 [facility] Comment on above: GFR Calc Estimated GFR (MDRD) Non-Af Amer 75 mL/min >60 [facility] Comment on above: Non- GFR Calc Thyroid Stimulating Hormone (TSH) 2.32 uIU/mL 0.358-3.74 [facility] Platelets bldOrdered By: Darshan Ibrahim on 05-17-2023 Platelets (Bld) [#/Vol] 230 10*3/uL 150-450 [facility] Protein Test strip Ql (U)Ord ered By: Kailyn Ibrahim on 05-17-2023 Protein Ql (U) Negative Negative [facility] Serum or plasma albumin josselin urement (mass/volume)Ordered By: Kailyn Ibrahim on 05-17-2023 Albumin [Mass/Vol] 3.6 g/dL 3.2-5.0 [facility] Serum or plasma albumin/glob ulin mass ratioOrdered By: Kailyn Ibrahim on 05-17-2023 Albumin/Globulin [Mass ratio] 0.9 {ratio} 0.9-2.4 [facility] Serum or plasma calcium josselin urement (mass/volume)Ordered By: Kailyn Ibrahim on 05-17-2023 Calcium [Mass/Vol] 8.8 mg/dL 8.5-10.1 [facility] Serum or plasma creatinine m easurement (mass/volume)Ordered By: Kailyn Ibrahim on 05-17-2023 Creatinine [Mass/Vol] 1.09 mg/dL 0.70-1.30 [facility] Comment on above: The validity of the calculated GFR & GFRAA in patients over 70 years has not been determined. Clinical correlation is essential. Serum or plasma urea nitroge n measurement (mass/volume)Ordered By: Kailyn Ibrahim on 05-17-2023 Urea nitrogen [Mass/Vol] 18 mg/dL 7-18 [facility] Squamous epithelial cells de tection in urine sediment by light microscopyOrdered By: Kailyn Ibrahim on 05-17-2023 Epithelial cells.squamous LM Ql (Urine sed) 0 SEEN /hpf 0-5 [facility] Thin prep Papanicolaou smear with manual screeningOrdered By: Kailyn Ibrahim on 05-17-2023 Thin prep Papanicolaou smear with manual screening 34 U/L 15-37 [facility] Thin prep Papanicolaou smear with manual screening 5 5-15 [facility] Urine blood detectionOrdered By: Kailyn Ibrahim on 05-17-2023 RBC Ql (U) Negative Negative [facility] RBC Ql (U) 0 SEEN /hpf 0-5 [facility] Urine clarityOrdered By: Darshan Ibrahim on 05-17-2023 Clarity (U) Sl. Cloudy Clear [facility] Urine color determinationOrd ered By: Kailyn Ibrahim on 05-17-2023 Color (U) Yellow Yellow [facility] Urine glucose detectionOrder ed By: Kailyn Ibrahim on 05-17-2023 Glucose Ql (U) Normal mg/dl Normal [facility] Urine leukocyte esterase det ection by dipstickOrdered By: Kailyn Ibrahim on 05-17-2023 Leukocyte esterase Test strip Ql (U) Negative Negative [facility] Urine pHOrdered By: Kailyn watkins on 05-17-2023 pH (U) 6.5 [pH] 5.0 - 8.0 [facility] Urine sediment bacteria coun t by microscopy (number/high power field)Ordered By: Kailyn Ibrahim on 05-17-2023 Bacteria LM.HPF (Urine sed) [#/Area] 0 /[HPF] None Seen [facility] Urine specific gravity measu rementOrdered By: Kailyn Ibrahim on 05-17-2023 Specific gravity (U) [Rel density] 1.020 1.002-1.03 0 [facility] Urobilinogen Auto test strip Ql (U)Ordered By: Kailyn Ibrahim on 05-17-2023 Urobilinogen Ql (U) Normal mg/dl Normal [facility] Basophil percentageon 2021 Basophil percentage 0 SEEN /hpf 0-5 [facility] Work Phone: Bilirubin [Mass/Vol] 0.60 mg/dL 0.20-1.00 [facility] Work Phone: Comment on above: For patients on eltr ombopag therapy, use of Dimension Horatio TBIL is not recommended. Chloride [Moles/Vol] 108 mmol/L 98-107 [facility] Work Phone: Cholesterol [Mass/Vol] 171 mg/dL <200 [facility] Work Phone: Comment on above: <200 mg/dL Desirable 200-240 mg/dL Borderline >240 mg/dL High Risk Glucose [Mass/Vol] 94 mg/dL 74-106 [facility] Work Phone: Potassium [Moles/Vol] 3.8 mmol/L 3.5-5.1 [facility] Work Phone: Protein [Mass/Vol] 7.3 g/dL 6.4-8.2 [facility] Work Phone: Sodium [Moles/Vol] 141 mmol/L 136-145 [facility] Work Phone: Triglyceride [Mass/Vol] 106 mg/dL <199 [facility] Work Phone: Comment on above: The drugs N-Acetylcy steine and Metamizole may falsely depress this assay.Serum Triglycerides Reference Interval Normal <150 mg/dL Borderline high 150 - 199 mg/dL High 200 - 499 mg/dL Very High > or = 500 mg/dL Bilirubin Test strip Ql (U)o n 05-20-2022 Bilirubin Ql (U) Negative Negative [facility] Work Phone: Calcium oxalate crystals det ection in urine sediment by light microscopyon 05-20-2022 Calcium oxalate crystals LM Ql (Urine sed) 1+ /hpf [facility] Work Phone: Ketones Test strip Ql (U)on 05-20-2022 Ketones Ql (U) Negative Negative [facility] Work Phone: Laboratory - Chemistry and C hemistry - challengeon 05-20-2022 ALP [Catalytic activity/Vol] 91 U/L 45-117 [facility] Work Phone: ALT [Catalytic activity/Vol] 42 U/L 16-61 [facility] Work Phone: CO2 [Moles/Vol] 27.0 mmol/L 21.0-32.0 [facility] Work Phone: Free T4 [Mass/Vol] 1.10 ng/dL 0.76-1.46 [facility] Work Phone: Globulin (S) [Mass/Vol] 3.5 g/dL 2.2-4.2 [facility] Work Phone: Urea nitrogen/Creatinine [Mass ratio] 16.9 mg/mg 10-20 [facility] Work Phone: Mucus LM Ql (Urine sed)on Mucus Ql (Urine sed) 1+ /hpf [facility] Work Phone: Nitrite Test strip Ql (U)on 05-20-2022 Nitrite Ql (U) Negative Negative [facility] Work Phone: No Panel Informationon 05-20 Estimated GFR (MDRD) Amer 83 mL/min >60 [facility] Work Phone: Comment on above: GFR Calc Estimated GFR (MDRD) Non-Af Amer 69 mL/min >60 [facility] Work Phone: Comment on above: Non- GFR Calc Thyroid Stimulating Hormone (TSH) 1.43 uIU/mL 0.358-3.74 [facility] Work Phone: Protein Test strip Ql (U)on 05-20-2022 Protein Ql (U) Negative Negative [facility] Work Phone: Serum or plasma albumin josselin urement (mass/volume)on 05-20-2022 Albumin [Mass/Vol] 3.8 g/dL 3.2-5.0 [facility] Work Phone: Serum or plasma albumin/glob ulin mass ratioon 05-20-2022 Albumin/Globulin [Mass ratio] 1.1 {ratio} 0.9-2.4 [facility] Work Phone: Serum or plasma calcium josselin urement (mass/volume)on 05-20-2022 Calcium [Mass/Vol] 8.8 mg/dL 8.5-10.1 [facility] Work Phone: Serum or plasma cholesterol in HDL measurement (mass/volume)on 05-20-2022 Cholesterol in HDL [Mass/Vol] 54 mg/dL >40 [facility] Work Phone: Comment on above: The drugs N-Acetylcy steine and Metamizole may falsely depress this assay. Reference Range HDL <40 mg/dL Low HDL Cholesterol HDL >or= 60 mg/dL High HDL Cholesterol Serum or plasma cholesterol in VLDL measurement (mass/volume)on 05-20-2022 Cholesterol in VLDL [Mass/Vol] 21 mg/dL 5-40 [facility] Work Phone: Serum or plasma creatinine m easurement (mass/volume)on 05-20-2022 Creatinine [Mass/Vol] 1.18 mg/dL 0.70-1.30 [facility] Work Phone: Comment on above: The validity of the calculated GFR & GFRAA in patients over 70 years has not been determined. Clinical correlation is essential. Serum or plasma low density lipoprotein (LDL) cholesterol measurement (mass/volume)on 05-20-2022 Cholesterol in LDL [Mass/Vol] 96 mg/dL 0-130 [facility] Work Phone: Serum or plasma urea nitroge n measurement (mass/volume)on 05-20-2022 Urea nitrogen [Mass/Vol] 20 mg/dL 7-18 [facility] Work Phone: Squamous epithelial cells de tection in urine sediment by light microscopyon 05-20-2022 Epithelial cells.squamous LM Ql (Urine sed) 0 SEEN /hpf 0-5 [facility] Work Phone: Thin prep Papanicolaou smear with manual screeningon 05-20-2022 Thin prep Papanicolaou smear with manual screening 26 U/L 15-37 [facility] Work Phone: Thin prep Papanicolaou smear with manual screening 6 5-15 [facility] Work Phone: Urine blood detectionon 05-06 RBC Ql (U) Negative Negative [facility] Work Phone: RBC Ql (U) 0 SEEN /hpf 0-5 [facility] Work Phone: Urine clarityon 05-20-2022 Clarity (U) Clear Clear [facility] Work Phone: Urine color determinationon 05-20-2022 Color (U) Yellow Yellow [facility] Work Phone: Urine glucose detectionon Glucose Ql (U) Normal mg/dl Normal [facility] Work Phone: Urine leukocyte esterase det ection by dipstickon 05-20-2022 Leukocyte esterase Test strip Ql (U) Negative Negative [facility] Work Phone: Urine pHon 05-20-2022 pH (U) 5.0 [pH] 5.0 - 8.0 [facility] Work Phone: Urine sediment bacteria coun t by microscopy (number/high power field)on 05-20-2022 Bacteria LM.HPF (Urine sed) [#/Area] RARE /hpf None Seen [facility] Work Phone: Urine specific gravity measu rementon 05-20-2022 Specific gravity (U) [Rel density] 1.025 1.002-1.03 0 [facility] Work Phone: Urobilinogen Auto test strip Ql (U)on 05-20-2022 Urobilinogen Ql (U) Normal mg/dl Normal [facility] Work Phone: Coronavirus (COVID-19/SARS-C oV-2) [facility] 09-29-2020 Device Identifier [place] Fusion SARS- CoV-2 assay_[employer] EUA Normal 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 [address] Illness or injury onset date and time [facility] Comment on above: Performed By: #### 6 9405-9 #### [facility] [address] [place] [address] Patient was hospitalized because of this condition [facility] Comment on above: Performed By: #### 6 9405-9 #### [facility] [address] [facility] [place] [place] [address] status [facility] Comment on above: Performed By: #### 6 9405-9 #### [facility] [address] [place] [address] Resides in congregate care setting [facility] Comment on above: Performed By: #### 6 9405-9 #### [facility] [address] [place] [address] SARS-CoV-2 NOTDET [facility] Comment on above: Result Comment: This test was performed via the Aptima SARS-CoV-2 Assay (DNAdigest), a Nucleic Acid Amplification Test (NAAT), and has been authorized by the FDA under an Emergency Use Authorization (EUA). The assay is validated for nasopharyngeal (HOUSE VISITOR), nasal, and oropharyngeal (OP) swab specimens. The [...] www.cdc.gov/coronavirus. Performed By: #### 6 9405-9 #### [facility] [address] [facility] [place] [place] [address] Symptomatic as defined by CDC [facility] Comment on above: Performed By: #### 6 9405-9 #### [facility] [address] [place] [address] Basic Metabolic Panelon 11-2 -2019 Anion gap [Moles/Vol] 7.0 mmol/L Normal 6.0-18.0 [facility] Comment on above: Performed By: #### 2 4317-0 #### [facility] [address] [place] [address] Calcium [Mass/Vol] 8.6 mg/dL Low 8.9-10.3 [facility] Comment on above: Performed By: #### 2 4317-0 #### [facility] [address] [place] [address] Chloride [Moles/Vol] 105 mmol/L Normal 98-107 [facility] Comment on above: Performed By: #### 2 4317-0 #### [facility] [address] [place] [address] CO2 [Moles/Vol] 26 mmol/L Normal 22-32 [facility] Comment on above: Performed By: #### 2 4317-0 #### [facility] [address] [place] [address] Creatinine [Mass/Vol] 0.96 mg/dL Normal 0.60-1.30 [facility] Comment on above: Performed By: #### 2 4317-0 #### [facility] [address] [place] [address] Glucose [Mass/Vol] 98 mg/dL Normal 70-99 [facility] Comment on above: Result Comment: U pdated ADA Reference Range A normal fasting glucose concentration is less than 100 mg/dL. An impaired fasting glucose concentration is 100-125 mg/dL. A provisional diagnosis of diabetes mellitus can be made when a fasting glucose concentration is greater than 125 mg/dL. Performed By: #### 2 4317-0 #### [facility] [address] [place] [address] Potassium [Moles/Vol] 3.9 mmol/L Normal 3.6-5.1 [facility] Comment on above: Performed By: #### 2 4317-0 #### [facility] [address] [place] [address] Sodium [Moles/Vol] 138 mmol/L Normal 136-145 [facility] Comment on above: Performed By: #### 2 4317-0 #### [facility] [address] [place] [address] Urea nitrogen (BldV) [Mass/Vol] 17 mg/dL Normal 8-20 [facility] Comment on above: Performed By: #### 2 4317-0 #### [facility] [address] [place] [address] CBCon 09-27-2020 Erythrocyte distribution width (RBC) [Entitic vol] 13.1 % Normal 11.0-14.8 [facility] Comment on above: Performed By: #### 2 4317-0 #### [address] [place] [address] Hematocrit (Bld) [Volume fraction] 37.6 % Low 39.0-49.0 [facility] Comment on above: Performed By: #### 2 4317-0 #### [address] [place] [address] Hemoglobin (Bld) [Mass/Vol] 12.7 g/dL Low 13.5-17.5 [facility] Comment on above: Performed By: #### 2 4317-0 #### [facility] [address] [place] [address] MCH (RBC) [Entitic mass] 30.8 Picograms Normal 27.0-34.0 [facility] Comment on above: Performed By: #### 2 4317-0 #### [facility] [address] [place] [address] MCHC (RBC) [Mass/Vol] 33.8 g/dL Normal 32.0-36.0 [facility] Comment on above: Performed By: #### 2 4317-0 #### [facility] [address] [place] [address] MCV (RBC) [Entitic vol] 91.0 fL Normal 80.0-97.0 [facility] Comment on above: Performed By: #### 2 4317-0 #### [address] [place] [address] Platelet mean volume (Bld) [Entitic vol] 9.6 fL Normal 6.2-12.1 [facility] Comment on above: Performed By: #### 2 4317-0 #### [address] [address] Platelets (Bld) [#/Vol] 241 thou/mcL Normal 142-424 [facility] Comment on above: Performed By: #### 2 4317-0 #### [address] [address] RBC (Bld) [#/Vol] 4.13 million/mcL Low 4.30-5.70 [facility] Comment on above: Performed By: #### 2 4317-0 #### [address] [address] WBC (Bld) [#/Vol] 7.8 thou/mcL Normal 4.6-10.2 [facility] Comment on above: Performed By: #### 2 4317-0 #### [address] [address] GFRaaon 09-27-2020 GFR/1.73 sq M predicted among blacks MDRD (S/P/Bld) [Vol rate/Area] mL/min/{1.73_m2} Normal [facility] Comment on above: Result Comment: The MDRD equation has not been validated for those over 70 years, women, patients with serious co-morbid conditions, or with extremes of body size, muscle mass of nutritional status. Performed By: #### 6 9405-9 #### [address] [address] GFRbbon 09-27-2020 GFR/1.73 sq M predicted among non-blacks MDRD (S/P/Bld) [Vol rate/Area] mL/min/{1.73_m2} Normal [facility] Comment on above: Performed By: #### 6 9405-9 #### [address] [place] [address] Magnesium Levelon 09-27-2020 Magnesium [Mass/Vol] 2.2 mg/dL Normal 1.8-2.5 [facility] Comment on above: Performed By: #### 1 9123-9 #### [address] [address] Patient Summaryon 09-27-2020 Patient Summary PATIENT DISCHARGE INSTRUCTIONS If you are having an emergency and are not able to reach your physician, CALL 911 or go to the nearest emergency room and take this document with you. [facility] 09/27/20 11:[address] [place] [address]. [id number] PATIENT INFORMATION ------ Name: VINH COLBY Address: [address] [place] [address] [place] [address] Age: 50 Years Phone: [phone] : 1970 12:00 Sex: Male Race: White Ethnicity: Not Hispan/Lat Admitted From: Clinic or [facility] Medical Service: Surgery Nurse Unit/Bed: (MO) 5FGC 5210-01 Admit Date: 09/22/2020 06:15 PCP: Physician, PCP Unknown PHYSICIANS INVOLVED WITH CARE Attending Physicians: Demarcus Og MD - Surgery Admitting Physician: None found Primary Care Physician:Physician, PCP Unknown,Family Practice,,, - Consults: None found FOLLOW-UP APPOINTMENTS: Provider: Specialty: Address: Date: PCP Unknown Physician Family Practice Follow-up as needed Provider: Specialty: Address: Date: Demarcus Og MD Surgery [address] [address] (1) 7 to 10 days Comment: Call for an Appointment ALLERGIES: No Known Medication Allergies No Known Allergies MEASUREMENTS: Last Charted: Weight: Admission 99.50 kg /219 lbs 6 oz ( 09/22/20 07:35:00 ) MEDICATIONS For: VINH COBLY This is your list of medication(s). Keep it with you at all times. Your doctor may have changed doses, add, held or stopped some of your medications. Please share this information with your family doctor. Carry this list of medications with you in case of an emergency. Update it when medications are stopped, doses are changed, or new medications (including qspd-mqm-eixllio products) are added. Ask your doctor if [...] doctor before taking any supplements, herbal or mezy-wes-btelhmq medications. Call your doctor if you have [...] suicide hotline, anytime day or night, at 8-649-030-KXKS. It's easy to sign up for [employer]: 1. Visit [email or web address] Youe alth 2. Click on [place] for [employer] 3. Verify your identity by entering your [...] your account, you'll be redirected to the [employer] login page. Login and check to see your results Questions? For help with account enrollment, call [employer] Customer Support at [phone] (toll-free) PATIENT EDUCATION Open Hernia Repair, Care [...] prevent this. HOME CARE INSTRUCTIONS ???Only take lahs-gne-xatsvii or prescription medicines as directed by your [...] 05/12/2006 Document Revised: 11/13/2015 Document Reviewed: 06/04/2014 [employer] Interactive Patient Education ?2016 [email or web address] [facility] A bulb [...] 10/20/2001 Document Revised: 11/13/2015 Document Reviewed: 03/27/2013 [email or web address] Patient Education ?2016 [email or web address] What You Should Know About Opioid Medicine What is an Opioid? Opioid medications are used to treat moderate to severe pain. Morphine, Oxycodone (Percocet?), Hydromorphone (Dilaudid?) and Hydrocodone (Horseheads?) are some types of opioids. How do Opioids work? Opioids reduce the pain signals sent to your brain, which decrease your feelings of pain. Opioids may reduce your pain, but may not take all the pain away. What are the risks from taking opioids? Prescription opioids carry serious risks of physical dependence, addiction and overdose, with terminal computer operator use. If you take too much of [...] _ Clinician Signature ____ Date/Time __ Normal [facility] Phosphorus Levelon 0 Phosphate [Moles/Vol] 3.4 mg/dL Normal 2.4-4.7 [facility] Comment on above: Performed By: #### 6 9405-9 #### [address] [place] [address] Basic Metabolic Panelon 09-07 Anion gap [Moles/Vol] 5.0 mmol/L Low 6.0-18.0 [facility] Comment on above: Performed By: #### 6 9405-9 #### [facility] [address] [facility] [place] [address] Calcium [Mass/Vol] 8.2 mg/dL Low 8.9-10.3 [facility] Comment on above: Performed By: #### 6 9405-9 #### [address] [place] [address] Chloride [Moles/Vol] 106 mmol/L Normal 98-107 [facility] Comment on above: Performed By: #### 6 9405-9 #### [facility] [address] [place] [address] CO2 [Moles/Vol] 27 mmol/L Normal 22-32 [facility] Comment on above: Performed By: #### 6 9405-9 #### [facility] [address] [facility] [place] [address] Creatinine [Mass/Vol] 0.95 mg/dL Normal 0.60-1.30 [facility] Comment on above: Performed By: #### 6 9405-9 #### [address] [facility] [place] [address] Glucose [Mass/Vol] 97 mg/dL Normal 70-99 [facility] Comment on above: Result Comment: U pdated ADA Reference Range A normal fasting glucose concentration is less than 100 mg/dL. An impaired fasting glucose concentration is 100-125 mg/dL. A provisional diagnosis of diabetes mellitus can be made when a fasting glucose concentration is greater than 125 mg/dL. Performed By: #### 6 9405-9 #### [facility] [address] [facility] [place] [address] Potassium [Moles/Vol] 4.3 mmol/L Normal 3.6-5.1 [facility] Comment on above: Performed By: #### 6 9405-9 #### [facility] [address] [place] [address] Sodium [Moles/Vol] 138 mmol/L Normal 136-145 [facility] Comment on above: Performed By: #### 6 9405-9 #### [facility] [address] [place] [address] Urea nitrogen (BldV) [Mass/Vol] 16 mg/dL Normal 8-20 [facility] Comment on above: Performed By: #### 6 9405-9 #### [facility] [address] [place] [address] CBCon 09-26-2020 Erythrocyte distribution width (RBC) [Entitic vol] 13.1 % Normal 11.0-14.8 [facility] Comment on above: Performed By: #### 2 4317-0 #### [facility] [address] [place] [address] Hematocrit (Bld) [Volume fraction] 36.0 % Low 39.0-49.0 [facility] Comment on above: Performed By: #### 2 4317-0 #### [facility] [address] [place] [address] Hemoglobin (Bld) [Mass/Vol] 11.9 g/dL Low 13.5-17.5 [facility] Comment on above: Performed By: #### 2 4317-0 #### [facility] [address] [place] [address] MCH (RBC) [Entitic mass] 30.2 Picograms Normal 27.0-34.0 [facility] Comment on above: Performed By: #### 2 4317-0 #### [facility] [address] [place] [address] MCHC (RBC) [Mass/Vol] 33.1 g/dL Normal 32.0-36.0 [facility] Comment on above: Performed By: #### 2 4317-0 #### [address] [place] [address] MCV (RBC) [Entitic vol] 91.4 fL Normal 80.0-97.0 [facility] Comment on above: Performed By: #### 2 4317-0 #### [facility] [address] [place] [address] Platelet mean volume (Bld) [Entitic vol] 9.5 fL Normal 6.2-12.1 [facility] Comment on above: Performed By: #### 2 4317-0 #### [facility] [address] [place] [address] Platelets (Bld) [#/Vol] 212 thou/mcL Normal 142-424 [facility] Comment on above: Performed By: #### 2 4317-0 #### [facility] [address] [facility] [place] [address] RBC (Bld) [#/Vol] 3.94 million/mcL Low 4.30-5.70 M [facility] Comment on above: Performed By: #### 2 4317-0 #### [facility] [address] [place] [address] WBC (Bld) [#/Vol] 9.1 thou/mcL Normal 4.6-10.2 [facility] Comment on above: Performed By: #### 2 4317-0 #### [facility] [address] [facility] [place] [place] [address] Magnesium Levelon 09-26-2020 Magnesium [Mass/Vol] 2.1 mg/dL Normal 1.8-2.5 [facility] Comment on above: Performed By: #### 2 4321-2 #### [facility] [address] [facility] [place] [address] Phosphorus Levelon 0 Phosphate [Moles/Vol] 3.1 mg/dL Normal 2.4-4.7 [facility] Comment on above: Performed By: #### 2 4321-2 #### [facility] [address] [facility] [place] [address] Basic Metabolic Panelon 09-07 Anion gap [Moles/Vol] 3.0 mmol/L Low 6.0-18.0 [facility] Comment on above: Performed By: #### 6 9405-9 #### [facility] [address] [facility] [place] [address] Calcium [Mass/Vol] 8.0 mg/dL Low 8.9-10.3 [facility] Comment on above: Performed By: #### 6 9405-9 #### [facility] [address] [facility] [place] [address] Chloride [Moles/Vol] 105 mmol/L Normal 98-107 [facility] Comment on above: Performed By: #### 6 9405-9 #### [address] [facility] [place] [place] [address] CO2 [Moles/Vol] 31 mmol/L Normal 22-32 [facility] Comment on above: Performed By: #### 6 9405-9 #### [facility] [address] [place] [address] Creatinine [Mass/Vol] 1.09 mg/dL Normal 0.60-1.30 [facility] Comment on above: Performed By: #### 6 9405-9 #### [facility] [address] [place] [address] Glucose [Mass/Vol] 99 mg/dL Normal 70-99 [facility] Comment on above: Result Comment: U pdated ADA Reference Range A normal fasting glucose concentration is less than 100 mg/dL. An impaired fasting glucose concentration is 100-125 mg/dL. A provisional diagnosis of diabetes mellitus can be made when a fasting glucose concentration is greater than 125 mg/dL. Performed By: #### 6 9405-9 #### [facility] [address] [place] [address] Potassium [Moles/Vol] 4.3 mmol/L Normal 3.6-5.1 [facility] Comment on above: Performed By: #### 6 9405-9 #### [address] [facility] [place] [place] [address] Sodium [Moles/Vol] 139 mmol/L Normal 136-145 [facility] Comment on above: Performed By: #### 6 9405-9 #### [address] [place] [address] Urea nitrogen (BldV) [Mass/Vol] 16 mg/dL Normal 8-20 [facility] Comment on above: Performed By: #### 6 9405-9 #### [address] [place] [address] CBCon 09-25-2020 Erythrocyte distribution width (RBC) [Entitic vol] 13.2 % Normal 11.0-14.8 [facility] Comment on above: Performed By: #### 2 4317-0 #### [address] [place] [address] Hematocrit (Bld) [Volume fraction] 36.5 % Low 39.0-49.0 [facility] Comment on above: Performed By: #### 2 4317-0 #### [facility] [address] [place] [address] Hemoglobin (Bld) [Mass/Vol] 11.9 g/dL Low 13.5-17.5 [facility] Comment on above: Performed By: #### 2 4317-0 #### [facility] [address] [place] [address] MCH (RBC) [Entitic mass] 30.3 Picograms Normal 27.0-34.0 [facility] Comment on above: Performed By: #### 2 4317-0 #### [address] [address] MCHC (RBC) [Mass/Vol] 32.6 g/dL Normal 32.0-36.0 [facility] Comment on above: Performed By: #### 2 4317-0 #### [facility] [address] [place] [address] MCV (RBC) [Entitic vol] 92.9 fL Normal 80.0-97.0 [facility] Comment on above: Performed By: #### 2 4317-0 #### [facility] [address] [place] [address] Platelet mean volume (Bld) [Entitic vol] 9.6 fL Normal 6.2-12.1 [facility] Comment on above: Performed By: #### 2 4317-0 #### [facility] [address] [place] [address] Platelets (Bld) [#/Vol] 181 thou/mcL Normal 142-424 [facility] Comment on above: Performed By: #### 2 4317-0 #### [facility] [address] [place] [address] RBC (Bld) [#/Vol] 3.93 million/mcL Low 4.30-5.70 [facility] Comment on above: Performed By: #### 2 4317-0 #### [facility] [address] [place] [address] WBC (Bld) [#/Vol] 9.7 thou/mcL Normal 4.6-10.2 [facility] Comment on above: Performed By: #### 2 4317-0 #### [facility] [address] [place] [address] GFRaaon 09-25-2020 GFR/1.73 sq M predicted among blacks MDRD (S/P/Bld) [Vol rate/Area] mL/min/{1.73_m2} Normal [facility] Comment on above: Result Comment: The MDRD equation has not been validated for those over 70 years, women, patients with serious co-morbid conditions, or with extremes of body size, muscle mass of nutritional status. Performed By: #### 6 9405-9 #### [facility] [address] [facility] [place] [address] GFRbbon 09-25-2020 GFR/1.73 sq M predicted among non-blacks MDRD (S/P/Bld) [Vol rate/Area] mL/min/{1.73_m2} Normal [facility] Comment on above: Performed By: #### 2 4321-2 #### [facility] [address] [facility] [place] [address] Magnesium Levelon 09-25-2020 Magnesium [Mass/Vol] 2.0 mg/dL Normal 1.8-2.5 [facility] Comment on above: Performed By: #### 6 9405-9 #### [facility] [address] [facility] [place] [address] Phosphorus Levelon 0 Phosphate [Moles/Vol] 2.8 mg/dL Normal 2.4-4.7 [facility] Comment on above: Performed By: #### 2 4321-2 #### [facility] [address] [facility] [place] [address] Basic Metabolic Panelon 09-06 Anion gap [Moles/Vol] 5.0 mmol/L Low 6.0-18.0 [facility] Comment on above: Performed By: #### 6 9405-9 #### [facility] [address] [place] [address] Calcium [Mass/Vol] 8.2 mg/dL Low 8.9-10.3 [facility] Comment on above: Performed By: #### 6 9405-9 #### [facility] [address] [place] [address] Chloride [Moles/Vol] 104 mmol/L Normal 98-107 [facility] Comment on above: Performed By: #### 6 9405-9 #### [facility] [address] [place] [address] CO2 [Moles/Vol] 31 mmol/L Normal 22-32 [facility] Comment on above: Performed By: #### 6 9405-9 #### [facility] [address] [place] [address] Creatinine [Mass/Vol] 1.19 mg/dL Normal 0.60-1.30 [facility] Comment on above: Performed By: #### 6 9405-9 #### [facility] [address] [place] [address] Glucose [Mass/Vol] 98 mg/dL Normal 70-99 [facility] Comment on above: Result Comment: U pdated ADA Reference Range A normal fasting glucose concentration is less than 100 mg/dL. An impaired fasting glucose concentration is 100-125 mg/dL. A provisional diagnosis of diabetes mellitus can be made when a fasting glucose concentration is greater than 125 mg/dL. Performed By: #### 6 9405-9 #### [facility] [address] [place] [address] Potassium [Moles/Vol] 4.2 mmol/L Normal 3.6-5.1 [facility] Comment on above: Performed By: #### 6 9405-9 #### [facility] [address] [place] [address] Sodium [Moles/Vol] 140 mmol/L Normal 136-145 [facility] Comment on above: Performed By: #### 6 9405-9 #### [facility] [address] [place] [address] Urea nitrogen (BldV) [Mass/Vol] 19 mg/dL Normal 8-20 [facility] Comment on above: Performed By: #### 6 9405-9 #### [place] [address] [place] [address] CBCon 09-24-2020 Erythrocyte distribution width (RBC) [Entitic vol] 13.2 % Normal 11.0-14.8 [facility] Comment on above: Performed By: #### 2 4321-2 #### [place] [address] [place] [address] Hematocrit (Bld) [Volume fraction] 37.2 % Low 39.0-49.0 [facility] Comment on above: Performed By: #### 2 4321-2 #### [address] [address] Hemoglobin (Bld) [Mass/Vol] 12.3 g/dL Low 13.5-17.5 [facility] Comment on above: Performed By: #### 2 4321-2 #### [place] [address] [place] [address] MCH (RBC) [Entitic mass] 30.8 Picograms Normal 27.0-34.0 [facility] Comment on above: Performed By: #### 2 4321-2 #### [place] [address] [place] [address] MCHC (RBC) [Mass/Vol] 33.1 g/dL Normal 32.0-36.0 [facility] Comment on above: Performed By: #### 2 4321-2 #### [place] [address] [place] [address] MCV (RBC) [Entitic vol] 93.2 fL Normal 80.0-97.0 [facility] Comment on above: Performed By: #### 2 4321-2 #### [place] [address] [place] [address] Platelet mean volume (Bld) [Entitic vol] 9.9 fL Normal 6.2-12.1 [facility] Comment on above: Performed By: #### 2 4321-2 #### [facility] [address] [place] [address] Platelets (Bld) [#/Vol] 181 thou/mcL Normal 142-424 [facility] Comment on above: Performed By: #### 2 4321-2 #### [place] [address] [place] [address] RBC (Bld) [#/Vol] 3.99 million/mcL Low 4.30-5.70 M [facility] Comment on above: Performed By: #### 2 4321-2 #### [address] [address] WBC (Bld) [#/Vol] 10.5 thou/mcL High 4.6-10.2 [facility] Comment on above: Performed By: #### 2 4321-2 #### [place] [address] [place] [address] Magnesium Levelon 09-24-2020 Magnesium [Mass/Vol] 2.0 mg/dL Normal 1.8-2.5 [facility] Comment on above: Performed By: #### 6 9405-9 #### [address] [address] Phosphorus Levelon 0 Phosphate [Moles/Vol] 1.9 mg/dL Low 2.4-4.7 [facility] Comment on above: Performed By: #### 2 4321-2 #### [facility] [address] [place] [address] Basic Metabolic Panelon 09-06 Anion gap [Moles/Vol] 3.0 mmol/L Low 6.0-18.0 [facility] Comment on above: Performed By: #### 2 4321-2 #### [place] [address] [place] [address] Calcium [Mass/Vol] 8.6 mg/dL Low 8.9-10.3 [facility] Comment on above: Performed By: #### 2 4321-2 #### [facility] [address] [place] [address] Chloride [Moles/Vol] 106 mmol/L Normal 98-107 [facility] Comment on above: Performed By: #### 2 4321-2 #### [facility] [address] [place] [address] CO2 [Moles/Vol] 30 mmol/L Normal 22-32 [facility] Comment on above: Performed By: #### 2 4321-2 #### [facility] [address] [place] [address] Creatinine [Mass/Vol] 1.62 mg/dL High 0.60-1.30 [facility] Comment on above: Performed By: #### 2 4321-2 #### [facility] [address] [place] [address] Glucose [Mass/Vol] 103 mg/dL High 70-99 [facility] Comment on above: Result Comment: U pdated ADA Reference Range A normal fasting glucose concentration is less than 100 mg/dL. An impaired fasting glucose concentration is 100-125 mg/dL. A provisional diagnosis of diabetes mellitus can be made when a fasting glucose concentration is greater than 125 mg/dL. Performed By: #### 2 4321-2 #### [facility] [address] [place] [address] Potassium [Moles/Vol] 4.6 mmol/L Normal 3.6-5.1 [facility] Comment on above: Performed By: #### 2 4321-2 #### [facility] [address] [place] [address] Sodium [Moles/Vol] 139 mmol/L Normal 136-145 [facility] Comment on above: Performed By: #### 2 4321-2 #### [facility] [address] [place] [address] Urea nitrogen (BldV) [Mass/Vol] 25 mg/dL High 8-20 [facility] Comment on above: Performed By: #### 2 4321-2 #### [facility] [address] [facility] [place] [address] Anion gap [Moles/Vol] 3.0 mmol/L Low 6.0-18.0 [facility] Comment on above: Performed By: #### 2 4321-2 #### [facility] [address] [place] [address] Calcium [Mass/Vol] 8.3 mg/dL Low 8.9-10.3 [facility] Comment on above: Performed By: #### 2 4321-2 #### [facility] [address] [place] [address] Chloride [Moles/Vol] 107 mmol/L Normal 98-107 [facility] Comment on above: Performed By: #### 2 4321-2 #### [facility] [address] [place] [address] CO2 [Moles/Vol] 27 mmol/L Normal 22-32 [facility] Comment on above: Performed By: #### 2 4321-2 #### [facility] [address] [place] [address] Creatinine [Mass/Vol] 2.38 mg/dL High 0.60-1.30 [facility] Comment on above: Performed By: #### 2 4321-2 #### [facility] [address] [place] [address] Glucose [Mass/Vol] 123 mg/dL High 70-99 [facility] Comment on above: Result Comment: U pdated ADA Reference Range A normal fasting glucose concentration is less than 100 mg/dL. An impaired fasting glucose concentration is 100-125 mg/dL. A provisional diagnosis of diabetes mellitus can be made when a fasting glucose concentration is greater than 125 mg/dL. Performed By: #### 2 4321-2 #### [facility] [address] [place] [address] Potassium [Moles/Vol] 5.0 mmol/L Normal 3.6-5.1 [facility] Comment on above: Performed By: #### 2 4321-2 #### [facility] [address] [place] [address] Sodium [Moles/Vol] 137 mmol/L Normal 136-145 [facility] Comment on above: Performed By: #### 2 4321-2 #### [facility] [address] [facility] [place] [address] Urea nitrogen (BldV) [Mass/Vol] 31 mg/dL High 8-20 [facility] Comment on above: Performed By: #### 2 4321-2 #### [facility] [address] [facility] [place] [address] CBCon 09-23-2020 Erythrocyte distribution width (RBC) [Entitic vol] 13.9 % Normal 11.0-14.8 [facility] Comment on above: Performed By: #### 2 4317-0 #### [place] [address] [place] [address] Hematocrit (Bld) [Volume fraction] 39.5 % Normal 39.0-49.0 [facility] Comment on above: Performed By: #### 2 4317-0 #### [address] [address] Hemoglobin (Bld) [Mass/Vol] 12.8 g/dL Low 13.5-17.5 [facility] Comment on above: Performed By: #### 2 4317-0 #### [facility] [address] [place] [address] MCH (RBC) [Entitic mass] 30.3 Picograms Normal 27.0-34.0 [facility] Comment on above: Performed By: #### 2 4317-0 #### [place] [address] [place] [address] MCHC (RBC) [Mass/Vol] 32.4 g/dL Normal 32.0-36.0 [facility] Comment on above: Performed By: #### 2 4317-0 #### [place] [address] [place] [address] MCV (RBC) [Entitic vol] 93.6 fL Normal 80.0-97.0 [facility] Comment on above: Performed By: #### 2 4317-0 #### [facility] [address] [place] [address] Platelet mean volume (Bld) [Entitic vol] 9.5 fL Normal 6.2-12.1 [facility] Comment on above: Performed By: #### 2 4317-0 #### [address] [address] Platelets (Bld) [#/Vol] 211 thou/mcL Normal 142-424 [facility] Comment on above: Performed By: #### 2 4317-0 #### [address] [address] RBC (Bld) [#/Vol] 4.22 million/mcL Low 4.30-5.70 [facility] Comment on above: Performed By: #### 2 4317-0 #### [address] [address] WBC (Bld) [#/Vol] 14.6 thou/mcL High 4.6-10.2 [facility] Comment on above: Performed By: #### 2 4317-0 #### [address] [address] GFRaaon 09-23-2020 GFR/1.73 sq M predicted among blacks MDRD (S/P/Bld) [Vol rate/Area] 35 mL/min/{1.73_m2} Normal [facility] Comment on above: Result Comment: The MDRD equation has not been validated for those over 70 years, women, patients with serious co-morbid conditions, or with extremes of body size, muscle mass of nutritional status. Performed By: #### 2 4317-0 #### [place] [address] [place] [address] GFRbbon 09-23-2020 GFR/1.73 sq M predicted among non-blacks MDRD (S/P/Bld) [Vol rate/Area] 29 mL/min/{1.73_m2} Normal [facility] Comment on above: Performed By: #### 2 4321-2 #### [facility] [address] [place] [address] Magnesium Levelon 09-23-2020 Magnesium [Mass/Vol] 1.9 mg/dL Normal 1.8-2.5 [facility] Comment on above: Performed By: #### 6 9405-9 #### [facility] [address] [place] [address] OR Nursingon 09-23-2020 OR Nursing CO GH OR Nursing Rec ord Summary Primary Physician: Demarcus Og MD Finalized Date/Time: 09/23/20 07:25:20 Pt. Name: HIRAMJAYNAELMIRAVINH D.O.B./Sex: 1970 Male Med Rec #: [id number] Physician: Financial #: [id number] Pt. Type: A Room/Bed: [address] [place] [address] Admit/Disch: 09/22/20 06:15:00 - Institution: CO GH [...] Attendee Earle MARS , Demarcus Cosby RN Carol RN , Franklyn Ta Role Performed Primary Surgeon property management assistant First Scrub Time In 09/22/20 08:48:00 09/22/20 08:48:00 09/22/20 08:48:00 Time Out 09/22/20 13:15:00 09/22/20 13:15:00 09/22/20 13:15:00 Procedure Repair Hernia Repair Hernia Repair Hernia Ventral(N/A), Removal Ventral(N/A), Removal Ventral(N/A), Removal Foreign Body(N/A) Foreign Body(N/A) Foreign Body(N/A) Attendee Comment Relief Reason Last Modified By: Henok RN , Amrita Whiting RN , Amrita Gibbons RN 09/23/20 07:23:00 09/23/20 07:23:00 09/23/20 07:23:00 Entry 4 Entry 5 Entry [address] CRNA, DO, Conor Chirumamilla MD , Maxim Role Performed Nurse Bacon De Rinder Resident Anesthesiologist Time In 09/22/20 08:48:00 09/22/20 08:48:00 09/22/20 08:48:00 Time Out 09/22/20 13:15:00 09/22/20 13:15:00 09/22/20 13:15:00 Procedure Repair Hernia Repair Hernia Repair Hernia Ventral(N/A), Removal Ventral(N/A), Removal Ventral(N/A), Removal Foreign Body(N/A) Foreign Body(N/A) Foreign Body(N/A) Attendee Comment Relief Reason Last Modified By: Henok RN , Amrita Whiting RN , Amrita Gibbons RN 09/23/20 07:23:00 09/23/20 07:23:00 09/23/20 07:23:00 Entry 7 Case Attendee Naya Virgen RN Role Performed RN Time In 09/22/20 11:10:00 Time Out 09/22/20 12:40:00 Procedure Repair Hernia Ventral(N/A), Removal Foreign Body(N/A) Attendee Comment Relief Reason Lunch Last Modified By: Amrita Whiting RN 09/23/20 07:23:00 CO GH OR General Case Apn 1 OR CO GH 06 ASA Class [...] CARR URINE METER DRAIN ROUND HUBLESS 16FR 121567 15FR FULL FLUTED VIRGIE [id number] Present on Arrival? 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 [employer] ALLERGAN Catalog Number [id number] Lot Number [id number] Serial Number [id number] N/A 1 Implant Site abdomen ABDOMEN Quantity 1 1 Expiration Date 03/05/25 No Expiration Date No No Unique Device Indent (MAKAYLA) Human Readable Machine Readable Manufactured Date Tissue Tissue Implanted No Yes Material Used to N/A 0.9% NACL LOT: Prepare/Process [id number] EXP: Tissue 04/05/2023 Processed By: Franklyn Torres RN Last Modified By: Amrita Whiting RN, RN, Dorothy D 09/23/20 07:23:03 09/23/20 07:23:03 General Comments: CATALOG [...] 2nd count correct Count RN Performing Count Carol Cosby RN, RN , Carol Cosby RN Carol Count Performed with Brian RN , Franklyn Torres RN , Franklyn Torres RN , Franklyn Ta Comment Procedure Repair Hernia Repair Hernia Repair Hernia Ventral(N/A), Removal Ventral(N/A), Removal Ventral(N/A), Removal Foreign Body(N/A) Foreign Body(N/A) Foreign Body(N/A) Last Modified By: Amrita Whiting RN RN , Amrita Gibbons RN 09/23/20 07:23:04 09/23/20 07:23:04 09/23/20 07:23:04 CO GH OR Dressing/Packing Entry 1 Entry 2 Dressing Dressing/Packing SPONGE GAUZE 4X4 2PK DRESSING MEDPORE Type [id number] 3.6X12IN [id number] Dressing/Packing Site Tape Medipore Tape 4 in Dressing/Packing Comment Last Modified By: Carol Cosby RN, RN, Dawn M 09/22/20 13:09:34 09/22/20 13:09:34 CO GH OR Temperature Regulation Entry 1 Unit ID [id number] Site UPPER BODY Warm blankets, Warm fluids, [...] Class Primary Surgeon Earle MARS , Demarcus Og MD , Demarcus Surgical Service General Surgery [...] SURGICAL PROCEDURE ADDED PER OPERATIVE REPORT ROSETTA PALENCIACAN SORTER PERFORMED CHANGED PER OPERATIVE REPORT ROSETTA PALENCIA Case Comments Finalized By: Amrita Whiting RN Document Signatures Signed By: Carol Cosby RN 09/22/20 13:30 Amrita Whiting RN 09/23/20 07:24 Radhika Minor RN 09/22/20 14:15 Amrita Whiting RN 09/23/20 07:[address] [facility] Phosphorus Levelon 0 Phosphate [Moles/Vol] 3.8 mg/dL Normal 2.4-4.7 [facility] Comment on above: Performed By: #### 2 4321-2 #### [facility] [address] [place] [address] Antibody Screen Interpretati onon 09-22-2020 Interpretation and review of laboratory results Negative Normal NEGATIVE-N EGATIVE [facility] Comment on above: Performed By: #### C [id number] #### [facility] Blood Type ABO and Rh(D)on 11-22-2019 ABO and Rh group Nom (Bld) OPOS Normal [facility] Comment on above: Performed By: #### 6 9405-9 #### [facility] [address] [place] [address] Glucose POCT (Uploaded)on Glucose [Mass/Vol] 94 mg/dL Normal 70-99 [facility] Comment on above: Result Comment: Nika tment ranges and critical values established by Patient Care Services. All follow-up actions were taken by Patient Care Services. Performed By: #### C [id number] #### [facility] PACU I Nursingon 09-22-2020 PACU I Nursing CO GH OR PACU I Nurs ing Record Summary Primary Physician: Demarcus Og MD Finalized Date/Time: 09/22/20 15:41:48 Pt. Name: VINH COLBY/Sex: 1970 Male Med Rec #: [id number] Physician: Financial #: [id number] Pt. Type: A Room/Bed: / Admit/Disch: 09/22/20 [...] By: Moreno Orosco RN 09/22/20 15:[address] [facility] PreOp Nursingon 09-22-2020 PreOp Nursing CO GH OR PreOp Nursi ng Record Summary Primary Physician: Demarcus Og MD Finalized Date/Time: 09/22/20 13:59:46 Pt. Name: VINH COLBY Wilner Gutierrez/Sex: 1970 Male Med Rec #: [id number] Physician: #: [id number] Pt. Type: A Room/Bed: / Admit/Disch: 09/22/20 06:15:00 - Institution: CO OR PreOp Case Times Entry 1 PreOp Case Times In Room Time 09/22/20 06:35:00 Out Room Time 09/22/20 08:47:00 Last Modified By: Radhika Minor RN 09/22/20 13:59:40 General Comments: OUT TIME ENTERED PER IN OR ROOM TIME S LYNNE LIMON OR PreOp Case Attendees Entry 1 Case Attendee Alexandra Hill RN Role Performed RN Last Modified By: Alexandra Hill RN 09/22/20 07:19:06 Finalized By: Radhika Minor RN Document Signatures Signed By: Radhika Minor RN 09/22/20 13:59 [facility] Coronavirus (COVID-19/SARS-C oV-2) [facility] 09-19-2020 Device Identifier [place] [employer] SARS- CoV-2 assay_[employer]. 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 [employer] [facility] Comment on above: Performed By: #### 2 4317-0 #### [facility] [address] [place] [address] First test N [facility] Comment on above: Performed By: #### 2 4317-0 #### [facility] [address] [place] [address] ICU N [facility] Comment on above: Performed By: #### 2 4317-0 #### [facility] [address] [place] [address] Illness or injury onset date and time N [facility] Comment on above: Performed By: #### 2 4317-0 #### [facility] [address] [place] [address] Patient was hospitalized because of this condition N [facility] Comment on above: Performed By: #### 2 4317-0 #### [facility] [address] [place] [address] status N [facility] Comment on above: Performed By: #### 2 4317-0 #### [facility] [address] [place] [address] Resides in congregate care setting N [facility] Comment on above: Performed By: #### 2 4317-0 #### [facility] [address] [place] [address] SARS-CoV-[address] [facility] Comment on above: Result Comment: This test was performed via the Aptima SARS-CoV-2 Assay (DNAdigest), a Nucleic Acid Amplification Test (NAAT), and has been authorized by the FDA under an Emergency Use Authorization (EUA). The assay is validated for nasopharyngeal (HOUSE VISITOR), nasal, and oropharyngeal (OP) swab specimens. The [...] www.cdc.gov/coronavirus. Performed By: #### 2 4317-0 #### [facility] [address] [place] [address] Symptomatic as defined by CDC [facility] Comment on above: Performed By: #### 2 4317-0 #### [facility] [address] [place] [address] Antibody Screen Interpretati onon 09-16-2020 Interpretation and review of laboratory results Negative Normal NEGATIVE-N EGATIVE [facility] Comment on above: Performed By: #### C [id number] #### [facility] Basic Metabolic Panelon 09-06 Anion gap [Moles/Vol] 4.0 mmol/L Low 6.0-18.0 [facility] Comment on above: Performed By: #### 2 4321-2 #### [facility] [address] [place] [address] Calcium [Mass/Vol] 9.3 mg/dL Normal 8.9-10.3 [facility] Comment on above: Performed By: #### 2 4321-2 #### [facility] [address] [place] [address] Chloride [Moles/Vol] 108 mmol/L High 98-107 [facility] Comment on above: Performed By: #### 2 4321-2 #### [facility] [address] [place] [address] CO2 [Moles/Vol] 26 mmol/L Normal 22-32 [facility] Comment on above: Performed By: #### 2 4321-2 #### [facility] [address] [place] [address] Creatinine [Mass/Vol] 0.99 mg/dL Normal 0.60-1.30 [facility] Comment on above: Performed By: #### 2 4321-2 #### [facility] [address] [facility] [place] [address] Glucose [Mass/Vol] 74 mg/dL Normal 70-99 [facility] Comment on above: Result Comment: U pdated ADA Reference Range A normal fasting glucose concentration is less than 100 mg/dL. An impaired fasting glucose concentration is 100-125 mg/dL. A provisional diagnosis of diabetes mellitus can be made when a fasting glucose concentration is greater than 125 mg/dL. Performed By: #### 2 4321-2 #### [facility] [address] [place] [address] Potassium [Moles/Vol] 3.7 mmol/L Normal 3.6-5.1 [facility] Comment on above: Performed By: #### 2 4321-2 #### [facility] [address] [place] [address] Sodium [Moles/Vol] 138 mmol/L Normal 136-145 [facility] Comment on above: Performed By: #### 2 4321-2 #### [facility] [address] [place] [address] Urea nitrogen (BldV) [Mass/Vol] 15 mg/dL Normal 8-20 [facility] Comment on above: Performed By: #### 2 4321-2 #### [facility] [address] [place] [address] Blood Type ABO and Rh(D)on 11-16-2019 ABO and Rh group Nom (Bld) OPOS Normal [facility] Comment on above: Performed By: #### 8 82-1 #### [facility] [address], [place], [place] CBCon 09-16-2020 Erythrocyte distribution width (RBC) [Entitic vol] 12.9 % Normal 11.0-14.8 [facility] Comment on above: Performed By: #### C [id number] #### [facility] Hematocrit (Bld) [Volume fraction] 47.9 % Normal 39.0-49.0 [facility] Comment on above: Performed By: #### C [id number] #### [facility] Hemoglobin (Bld) [Mass/Vol] 16.7 g/dL Normal 13.5-17.5 [facility] Comment on above: Performed By: #### C [id number] #### [facility] MCH (RBC) [Entitic mass] 30.7 Picograms Normal 27.0-34.0 [facility] Comment on above: Performed By: #### C [id number] #### [facility] MCHC (RBC) [Mass/Vol] 34.9 g/dL Normal 32.0-36.0 [facility] Comment on above: Performed By: #### C [id number] #### [facility] MCV (RBC) [Entitic vol] 88.1 fL Normal 80.0-97.0 [facility] Comment on above: Performed By: #### C [id number] #### [facility] Platelet mean volume (Bld) [Entitic vol] 9.5 fL Normal 6.2-12.1 [facility] Comment on above: Performed By: #### C [id number] #### [facility] Platelets (Bld) [#/Vol] 246 thou/mcL Normal 142-424 [facility] Comment on above: Performed By: #### C [id number] #### [facility] RBC (Bld) [#/Vol] 5.44 million/mcL Normal 4.30-5.70 [facility] Comment on above: Performed By: #### C [id number] #### [facility] WBC (Bld) [#/Vol] 7.3 thou/mcL Normal 4.6-10.2 [facility] Comment on above: Performed By: #### C [id number] #### [facility] GFRaaon 09-16-2020 GFR/1.73 sq M predicted among blacks MDRD (S/P/Bld) [Vol rate/Area] mL/min/{1.73_m2} Normal [facility] Comment on above: Result Comment: The MDRD equation has not been validated for those over 70 years, women, patients with serious co-morbid conditions, or with extremes of body size, muscle mass of nutritional status. Performed By: #### 6 9405-9 #### [facility] [address] [facility] [place] [address] GFRbbon 09-16-2020 GFR/1.73 sq M predicted among non-blacks MDRD (S/P/Bld) [Vol rate/Area] mL/min/{1.73_m2} Normal 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 Normal appendix. [facility] thanks you for the opportunity to care for your patient. Workstation ID: [id number] FINAL REPORT Dictated By: Nuno Cruz MD 01/10/2020 12:54 Assigned Physician: Nuno Cruz MD Reviewed and Electronically Signed By: Nuno Cruz MD 01/10/2020 13:06 Transcribed by: TUSHAR 01/10/2020 12:54 Technologist: JUANITAN Normal [facility] Creatinine POCT [facility] Creatinine [Mass/Vol] 1.2 mg/dL Normal 0.6-1.3 [facility] Comment on above: Performed By: #### C [id number] #### [facility] CT SINUS [...] osseous erosion or destructive pattern is apparent. [employer] Workstation ID: [id number] Dictated by: EARLENE YI on MonAug 16, 2019 3:41:09 PM EDT Transcribed by: ANISA GOINS on MonAug 16, 2019 3:51:02 PM EDT Finalized by: EARLENE YI on MonAug 16, 2019 4:15:32 PM EDT [facility] Comment on above: Order Comment: Injur y/Trauma [...] osseous erosion or destructive pattern is apparent. [employer] Workstation ID: [id number] [facility] EXAMINATION: CT SINU S STEALTH WITHOUT [...] Temporomandibular joints are seen and appear satisfactory. [facility] Interface, Rad In Fu ji Speechq [...] osseous erosion or destructive pattern is apparent. [employer] Workstation ID: [id number] [facility] POC Urinalysis Dipstickon Bilirubin Ql (U) Negative Negative [facility] Glucose Ql (U) Negative Normal, Negative mg/dL [facility] Hemoglobin Ql (U) Negative Negative [facility] Interpretation and review of laboratory results Normal [facility] Ketones Ql (U) Negative Negative mg/dL [facility] Leukocyte esterase Test strip Ql (U) Negative Negative [facility] Nitrite Ql (U) Negative Negative [facility] pH (U) 5.5 [pH] [facility] Protein Ql (U) Negative Negative mg/dL [facility] Specific gravity (U) [Rel density] 1.020 [facility] Urobilinogen Qn (U) <2.0 <2.0, 0. 2, Normal, Negative, 1.0, 2.0, <1.0 mg/dL [facility] BMPon 10-27-2018 Anion gap 3 molar [...] Invalid Interpretation Code 26 - 34 pg [facility] MCHC Auto mass conc (RBC) 33.6 g/dL Invalid Interpretation Code 31 - 37 g/dL [facility] MCV Auto Entitic volume (RBC) 88.4 fL Invalid Interpretation Code 80 - 100 fL [facility] Monocytes Auto #/vol (Bld) 0.97 10*3/uL High [facility] Monocytes/100 WBC Auto (Bld) 8.6 % Invalid Interpretation Code [facility] Neutrophils Auto #/vol (Bld) 7.56 10*3/uL High [facility] Neutrophils/100 WBC Auto (Bld) 66.7 % Invalid Interpretation Code [facility] Nucleated RBC #/vol (Bld) 0.00 10*3/uL Invalid Interpretation Code [facility] Nucleated RBC/100 WBC Ratio (Bld) 0.0 % Invalid Interpretation Code [facility] Platelet mean volume Auto Entitic volume [...] Normal appendix and unremarkable abdominal gas pattern. [facility]/[employer] Workstation ID: [id number] Invalid Interpretation Code [facility] EXAMINATION: CT KIDN EY STONE HISTORY: [...] The appendix is normal. Invalid Interpretation Code [employer] UTAH 1. There is a small punctate nonobstructive [...] Normal appendix and unremarkable abdominal gas pattern. [facility]/[place] Workstation ID: [id number] Invalid Interpretation Code [employer] [facility] ECG 12-LEADon 10-27-2018 Wilner Farah 10/27/2018 11:07 [...] Code MUSE Hepatic Function Panel (LFT) on 12-22-2018 Albumin mass conc 3.9 g/dL Invalid Interpretation [...] Procedure Abnormality Status --------- ------ CBC Auto Differential[[id number]] Normal Final result Please view results for these tests on the individual orders. Invalid Interpretation Code [facility] Work Phone: POC Influenza A/Bon 11-13-19 18 Interpretation and review of laboratory results Abnormal Invalid Interpretation Code [facility] Work Phone: Rapid Influenza A/B Ag Positive Abnormal Negative [facility] Work Phone: Vital Signs Date Time Vital Sign Value Performing Clinician Jhoana gann 01-10-2020 08:30-0500 BMI (Body Mass Index) 35.45 kg/m2 Kailyn Looney [facility] 01-10-2020 08:30-0500 Body Temperature 99.19 [degF] Kailyn Looney [facility] 01-10-2020 08:30-0500 Body weight 96.62 kg Kailyn Looney [facility] 01-10-2020 08:30-0500 BP Diastolic 78 mm[Hg] [facility] 01-10-2020 08:30-0500 BP Systolic 116 mm[Hg] [facility] 01-10-2020 08:30-0500 Height 165.1 cm [facility] 01-10-2020 08:30-0500 Pulse (Heart Rate) 66 /min [facility] 01-10-2020 08:30-0500 Pulse Oximetry 98 % [facility] 12-11-2019 16:08-0500 Body Temperature 97.9 [degF] Earlene Duran [facility] 12-11-2019 16:08-0500 BP Diastolic 81 mm[Hg] Earlene Duran [facility] 12-11-2019 16:08-0500 BP Systolic 133 mm[Hg] Earlene Duran [facility] 12-11-2019 16:08-0500 Pulse (Heart Rate) 80 /min [facility] 12-11-2019 16:08-0500 Pulse Oximetry 99 % Earlene Duran [facility] 12-11-2019 16:08-0500 Respiratory Rate 14 /min Earlene Duran [facility] 10-11-2019 08:05-0500 Body Temperature 98.49 [degF] Earlene Duran [facility] 10-11-2019 08:05-0500 Pulse (Heart Rate) 85 /min Earlene Duran [facility] 10-11-2019 08:05-0500 Pulse Oximetry 93 % Earlene Duran [facility] 08-16-2019 08:29-0400 BMI (Body Mass Index) 35.28 kg/m2 Kailyn Looney [facility] 08-16-2019 08:29-0400 Body Temperature 98.2 [degF] Kailyn Looney [facility] 08-16-2019 08:29-0400 Body weight 96.16 kg Kailyn Looney [facility] 08-16-2019 08:29-0400 BP Diastolic 82 mm[Hg] [facility] 08-16-2019 08:29-0400 BP Systolic 126 mm[Hg] [facility] 08-16-2019 08:29-0400 Height 165.1 cm [facility] 08-16-2019 08:29-0400 Pulse (Heart Rate) 80 /min Kailyn Looney [facility] 08-16-2019 08:29-0400 Pulse Oximetry 96 % [facility] 07-19-2019 08:51-0400 BP Diastolic 72 mm[Hg] [facility] 07-19-2019 08:51-0400 BP Systolic 120 mm[Hg] [facility] 07-19-2019 08:29-0400 BMI (Body Mass Index) 35.28 kg/m2 [facility] 07-19-2019 08:29-0400 Body Temperature 98.2 [degF] [facility] 07-19-2019 08:29-0400 Body weight 96.16 kg [facility] 07-19-2019 08:29-0400 Height 165.1 cm [facility] 07-19-2019 08:29-0400 Pulse (Heart Rate) 77 /min [facility] 07-19-2019 08:29-0400 Pulse Oximetry 96 % [facility] 04-05-2019 10:33-0400 BMI (Body Mass Index) 35.61 kg/m2 [facility] 04-05-2019 10:33-0400 Body Temperature 98.4 [degF] [facility] 04-05-2019 10:33-0400 BP Diastolic 79 mm[Hg] [facility] 04-05-2019 10:33-0400 BP Systolic 117 mm[Hg] [facility] 04-05-2019 10:33-0400 Height 165.1 cm [facility] 04-05-2019 10:33-0400 Pulse (Heart Rate) 87 /min [facility] 04-05-2019 10:33-0400 Pulse Oximetry 95 % [facility] 04-05-2019 10:33-0400 Weight 97.07 kg [facility] 03-15-2019 12:03-0400 BP Diastolic 94 mm[Hg] Kailyn Looney [facility] 03-15-2019 12:03-0400 BP Systolic 142 mm[Hg] Kailyn Looney [facility] 03-15-2019 11:01-0400 BMI (Body Mass Index) 35.61 kg/m2 Kailyn Looney [facility] 03-15-2019 11:01-0400 Body Temperature 98.29 [degF] Kailyn Looney [facility] 03-15-2019 11:01-0400 Height 165.1 cm [facility] 03-15-2019 11:01-0400 Pulse (Heart Rate) 77 /min Kailyn Looney [facility] 03-15-2019 11:01-0400 Pulse Oximetry 98 % Kailyn Looney [facility] 03-15-2019 11:01-0400 Weight 97.07 kg [facility] 01-11-2019 07:59-0500 BMI (Body Mass Index) 35.11 kg/m2 [facility] 01-11-2019 07:59-0500 Body Temperature 97.59 [degF] Kailyn Aayush [facility] 01-11-2019 07:59-0500 BP Diastolic 100 mm[Hg] Kailyn Looney [facility] 01-11-2019 07:59-0500 BP Systolic 154 mm[Hg] Kailyn Aayush [facility] 01-11-2019 07:59-0500 Height 165.1 cm [facility] 01-11-2019 07:59-0500 Pulse (Heart Rate) 84 /min Kailyn Aayush [facility] 01-11-2019 07:59-0500 Pulse Oximetry 98 % Kailyn Looney [facility] 01-11-2019 07:59-0500 Weight 95.71 kg Kailyn Looney [facility] 12-14-2018 10:59-0500 BMI (Body Mass Index) 35.78 kg/m2 [facility] 12-14-2018 10:59-0500 Body Temperature 97.59 [degF] Kailyn Looney [facility] 12-14-2018 10:59-0500 BP Diastolic 100 mm[Hg] [facility] 12-14-2018 10:59-0500 BP Systolic 144 mm[Hg] Kailyn Looney [facility] 12-14-2018 10:59-0500 Height 165.1 cm Kailyn Looney [facility] 12-14-2018 10:59-0500 Pulse (Heart Rate) 67 /min Kailyn Looney [facility] 12-14-2018 10:59-0500 Pulse Oximetry 98 % Kailyn Looney [facility] 12-14-2018 10:59-0500 Weight 97.52 kg [facility] 11-02-2018 11:42-0500 BMI (Body Mass Index) 35.61 kg/m2 [facility] 11-02-2018 11:42-0500 Body Temperature 99.19 [degF] [facility] 11-02-2018 11:42-0500 BP Diastolic 100 mm[Hg] [facility] 11-02-2018 11:42-0500 BP Systolic 140 mm[Hg] [facility] 11-02-2018 11:42-0500 Height 165.1 cm [facility] 11-02-2018 11:42-0500 Pulse (Heart Rate) 80 /min [facility] 11-02-2018 11:42-0500 Pulse Oximetry 98 % [facility] 11-02-2018 11:42-0500 Weight 97.07 kg [facility] 10-28-2018 02:30-0500 BP Diastolic 90 mm[Hg] [facility] 10-28-2018 02:30-0500 BP Systolic 166 mm[Hg] Chetan [facility] 10-28-2018 02:30-0500 Pulse (Heart Rate) 83 /min [facility] 10-28-2018 02:30-0500 Pulse Oximetry 97 % [facility] 10-28-2018 02:30-0500 Respiratory Rate 14 /min [facility] 10-27-2018 22:34-0500 BMI (Body Mass Index) 34.45 kg/m2 [facility] 10-27-2018 22:34-0500 Body Temperature 99.3 [degF] [facility] 10-27-2018 22:34-0500 Height 165.1 cm [facility] 10-27-2018 22:34-0500 Weight 93.89 kg Chetan Juarez [facility] 10-27-2018 18:00-0500 BP Diastolic 99 mm[Hg] Leslie Chung [facility] 10-27-2018 18:00-0500 BP Systolic 171 mm[Hg] [facility] 10-27-2018 18:00-0500 Pulse (Heart Rate) 77 /min [facility] Sheldon [facility] 10-27-2018 18:00-0500 Pulse Oximetry 93 % [facility] [place] 10-27-2018 17:30-0500 Respiratory Rate 16 /min [facility] [place] 10-27-2018 15:56-0500 BMI (Body Mass Index) 35.53 kg/m2 [facility] Sheldon [facility] 10-27-2018 15:56-0500 Body Temperature 98.01 [degF] [facility] Chung [facility] 10-27-2018 15:56-0500 Height 162.6 cm [facility] [place] 10-27-2018 15:56-0500 Weight 93.89 kg [facility] [place] 08-31-2018 10:36-0400 BMI (Body Mass Index) 35.01 kg/m2 [facility] 08-31-2018 10:36-0400 Body Temperature 98.71 [degF] [facility] 08-31-2018 10:36-0400 BP Diastolic 88 mm[Hg] [facility] 08-31-2018 10:36-0400 BP Systolic 144 mm[Hg] [facility] 08-31-2018 10:36-0400 Height 165.1 cm [facility] 08-31-2018 10:36-0400 Pulse (Heart Rate) 81 /min [facility] 08-31-2018 10:36-0400 Pulse Oximetry 94 % Kailyn Looney [facility] 08-31-2018 10:36-0400 Weight 95.44 kg Kailyn Looney [facility] 05-25-2018 09:03-0400 BMI (Body Mass Index) 36.44 kg/m2 Kailyn Looney [facility] 05-25-2018 09:03-0400 Body Temperature 98.91 [degF] [facility] 05-25-2018 09:03-0400 BP Diastolic 80 mm[Hg] Kailyn Looney [facility] 05-25-2018 09:03-0400 BP Systolic 128 mm[Hg] Kailyn Looney [facility] 05-25-2018 09:03-0400 Height 165.1 cm Kailyn Looney [facility] 05-25-2018 09:03-0400 Pulse (Heart Rate) 71 /min Kailyn Looney [facility] 05-25-2018 09:03-0400 Pulse Oximetry 98 % Kailyn Looney [facility] 05-25-2018 09:03-0400 Weight 99.34 kg Kailyn Looney [facility] 12-15-2017 09:18-0500 BMI (Body Mass Index) 34.45 kg/m2 Kailyn Looney [facility] Work Phone: 12-15-2017 09:18-0500 Body Temperature 98.01 [degF] Kailyn Looney [facility] Work Phone: 12-15-2017 09:18-0500 BP Diastolic 86 mm[Hg] Kailyn Looney [facility] Work Phone: 12-15-2017 09:18-0500 BP Systolic 124 mm[Hg] Kailyn Looney [facility] Work Phone: 12-15-2017 09:18-0500 Height 165.1 cm Kailyn Looney [facility] Work Phone: 12-15-2017 09:18-0500 Pulse (Heart Rate) 71 /min Kailyn Looney [facility] Work Phone: 12-15-2017 09:18-0500 Pulse Oximetry 98 % Kailyn Looney [facility] Work Phone: 12-15-2017 09:18-0500 Weight 93.89 [facility] Work [facility]: 11-13-2017 12:57-0500 BMI (Body Mass Index) 34.28 kg/m2 Kailyn Looney [facility] Work Phone: 11-13-2017 12:57-0500 Body Temperature 99.19 [degF] Kailyn Villanueva Work Phone: 11-13-2017 12:57-0500 BP Diastolic 80 mm[Hg] [facility] Work Phone: 11-13-2017 12:57-0500 BP Systolic 122 mm[Hg] [facility] Work Phone: 11-13-2017 12:57-0500 Height 165.1 cm [facility] Work Phone: 11-13-2017 12:57-0500 Pulse (Heart Rate) 76 /min [facility] Work Phone: 11-13-2017 12:57-0500 Pulse Oximetry 98 % [facility] Work Phone: 11-13-2017 12:57-0500 Weight 93.44 kg [facility] Work Phone: 08-18-2017 11:10-0400 BMI (Body Mass Index) 34.28 kg/m2 [facility] Work Phone: 08-18-2017 11:10-0400 Body Temperature 98.6 [degF] [facility] Work Phone: 08-18-2017 11:10-0400 BP Diastolic 80 mm[Hg] [facility] Work Phone: 08-18-2017 11:10-0400 BP Systolic 124 mm[Hg] [facility] Work Phone: 08-18-2017 11:10-0400 Height 165.1 cm [facility] Work Phone: 08-18-2017 11:10-0400 Pulse (Heart Rate) 79 /min [facility] Work Phone: 08-18-2017 11:10-0400 Pulse Oximetry 98 % Kailyn Looney [facility] Work Phone: 08-18-2017 11:100400 Weight 93.44 kg Kailyn Looney [facility] Work Phone: Encounters Encounter Date Encounter Type Care Provider Facility Start: 07-03-2025 ambulatory Kailyn Ibrahim Facilit y:[facility] Start: 05-29-2025 End: 05-29-[address] Kailyn Ibrahim MD Work Phone: -Laboratory Start: 05-29-2025 End: 05-29-[address] Kailyn Ibrahim MD -Laboratory Work Phone: Start: 05-29-2025 End: 05-29-2025 ambulatory Kailyn Ibrahim Facility:[facility] Start: 11-28-2024 End: 11-28-2024 ambulatory Kailyn Ibrahim Facility:[facility] Start: 08-30-2024 End: 08-30-2024 ambulatory Kailyn Ibrahim Facility:[facility] Start: 05-17-2023 End: 05-17-2023 ambulatory [facility] Work Phone: Start: 05-17-2023 End: 05-17-2023 Patient encounter procedure [facility] Start: 12-12-2022 ambulatory KAILYN PEARSON [facility] Ambulatory Start: 05-20-2022 End: 05-20-2022 Patient encounter procedure [facility] Start: 01-19-2021 End: 01-19-2021 Orders Only Talita Margo Jesus Work Phone: [facility] Start: 05-12-2020 End: 05-12-2020 Patient encounter procedure SANDRA GLORIA [facility] Start: 01-17-2020 Patient encounter procedure KAILYN LOONEY [facility] Start: 01-10-2020 End: 01-10-2020 Periodic preventive med est patient 40-64yrs Kailyn Looney Work Phone: [facility] Comment on above: Physical exam (Prima ry Dx); Diabetes mellitus screening; Lipid screening; Prostate cancer screening Start: 01-07-2020 End: 01-07-2020 Postop follow up visit related to original px Earlene Duran Work Phone: [facility] Comment on above: Hypertrophy of both inferior nasal turbinates (Primary Dx); Nasal obstruction without choanal atresia; History of nasal septoplasty Start: 12-31-2019 End: 12-31-2019 Postop follow up visit related to original px Earlene Duran Work Phone: [facility] Comment on above: Hypertrophy of both inferior nasal turbinates (Primary Dx); Nasal obstruction without choanal atresia; History of nasal septoplasty; Chronic rhinitis Start: 12-24-2019 End: 12-24-2019 Postop follow up visit related to original px Earlene Duran Work Phone: [facility] Comment on above: Hypertrophy of both inferior nasal turbinates (Primary Dx); Nasal obstruction without choanal atresia; History of nasal septoplasty Start: 12-17-2019 End: 12-17-2019 Postop follow up visit related to original px Earlene Duran Work Phone: [facility] Comment on above: DNS (deviated nasal septum) (Primary Dx); Hypertrophy of both inferior nasal turbinates; Nasal obstruction without choanal atresia; History of nasal septoplasty Start: 12-13-2019 End: 12-13-2019 Postop follow up visit related to original px Earlene Duran Work Phone: [facility] Comment on above: DNS (deviated nasal septum) (Primary Dx); Hypertrophy of both inferior nasal turbinates; Nasal obstruction without choanal atresia; History of nasal septoplasty Start: 12-11-2019 End: 12-11-2019 Patient encounter procedure EARLENE DURAN [facility] Start: 12-11-2019 End: 12-11-2019 Subsequent hospital visit by physician Earlene Duran Work Phone: [facility] Periop Comment on above: Acute post-operative pain (Primary Dx); Nasal obstruction without choanal atresia; Deviated septum; Injury of nose, sequela; Hypertrophy of both inferior nasal turbinates Start: 11-29-2019 End: 11-29-2019 Patient encounter procedure EARLENE SANDRO SHANT [facility] Start: 10-11-2019 End: 10-11-2019 Office outpatient visit 15 minutes Earlene Duran Work Phone: [facility] Comment on above: DNS (deviated nasal septum) (Primary Dx); Hypertrophy of both inferior nasal turbinates; Nasal obstruction without choanal atresia Start: 08-23-2019 End: 08-27-2019 Patient encounter procedure KAILYN LOONEY [facility] Start: 08-16-2019 End: 08-17-2019 Patient encounter procedure [facility] Start: 08-16-2019 End: 08-16-2019 Subsequent hospital visit by physician Earlene Jo shant Work Phone: [facility] CT Scan Comment on above: Deviated nasal septu m; Chronic sinusitis, unspecified location Start: 08-16-2019 End: 08-16-2019 Office outpatient visit 25 minutes Kailyn Looney Work Phone: [facility] Comment on above: Erectile dysfunction , unspecified erectile dysfunction type (Primary Dx); Urinary frequency; Hypertension, essential; Hypertriglyceridemia; Androgen deficiency; Motion sickness, initial encounter Start: 07-19-2019 End: 07-19-2019 Office outpatient visit 25 minutes Kailyn Looney Work Phone: [facility] Comment on above: Hypertension, essent ial (Primary Dx); Trigger middle finger of left hand; Hypertriglyceridemia; Need for hepatitis A immunization Start: 04-05-2019 End: 04-05-2019 Office outpatient visit 10 minutes Kailyn Looney Work Phone: [facility] Comment on above: Hypertension, essent ial (Primary Dx); Erectile dysfunction, unspecified erectile dysfunction type Start: 03-15-2019 End: 03-15-2019 Office outpatient visit 15 minutes Kailyn Looney Work Phone: [facility] Comment on above: Elevated blood press ure reading with diagnosis of hypertension Start: 01-11-2019 End: 01-11-2019 Office outpatient visit 25 minutes Kailyn Looney Work Phone: [facility] Comment on above: Elevated blood press ure reading in office with diagnosis of hypertension (Primary Dx); Witnessed episode of apnea; Habitual snoring Start: 12-14-2018 End: 12-14-2018 Periodic preventive med est patient 40-64yrs Kailyn Looney Work Phone: [facility] Comment on above: Physical exam (Prima ry Dx); Diabetes mellitus screening; Prostate cancer screening; Lipid screening; Medication side effect; Hypertension, essential Start: 11-02-2018 End: 11-02-2018 Office outpatient visit 25 minutes Kailyn Looney Work Phone: [facility] Comment on above: Acute left-sided low back pain without sciatica (Primary Dx); Hypertension, essential Start: 10-27-2018 End: 10-28-2018 Emergency department patient visit Chetan Joe Ann Work Phone: [facility] Emergency Department Comment on above: Musculoskeletal back pain (Primary Dx) Start: 10-27-2018 End: 10-27-2018 Emergency department patient visit Leslie Chung Work Phone: [facility] Emergency Department Comment on above: Left flank pain (Ghada ezio Dx); Elevated blood pressure reading; Hypertension, unspecified type Start: 08-31-2018 End: 08-31-2018 Office outpatient visit 25 minutes Kailyn MurilloSpreetales Work Phone: [facility] Comment on above: Hypertension, essent ial (Primary Dx); Erectile dysfunction, unspecified erectile dysfunction type; Hypertriglyceridemia; Androgen deficiency Start: 05-25-2018 End: 05-25-2018 Office outpatient visit 15 minutes Kailyn Pearson Qub[employer]co Work Phone: [facility] Start: 12-15-2017 Prev visit, est, age 40-64 Darshan dhiraj Looney Work Phone: [facility] Start: 11-13-2017 Office/outpatient vi sit, est, level 3 Kailyn Gregg Looney Work Phone: [facility] Start: 08-18-2017 Office outpatient vi sit 15 minutes Kailyn Looney Work Phone: [facility] Procedures Date Procedure Procedure Detail Performing Clinician Start: 05-29-2025 Urnls dip stick/tabl et reagent auto microscopy Dr. Kailyn Ibrahim MD Work Phone: Start: 05-15-2020 Colonoscopy [place] Start: 08-16-2019 Ct maxillofacial w/o contrast material Earlene Duran Work Phone: Start: 08-16-2019 Urinalysis macro [...] metabolic 2000 panel - Serum or Plasma Minoaleksandr Michael Sheldon Work Phone: Start: 10-27-2018 End: 10-27-2018 Complete blood count with white cell differential, automated Leslie Chung Work Phone: Start: 10-27-2018 End: 10-27-2018 Complete blood count with white cell differential, manual Minoaleksandr Chung Work Phone: Start: 10-27-2018 End: 10-27-2018 [...] 05-15-2030 Screening for malignant neoplasm of colon [facility] Start: 01-16-2022 Prostate specific antigen measurement PSA Level [facility] Start: 01-09-2021 History and physical examination, annual for health maintenance Wellness Visit [facility] Start: 03-20-2020 End: 03-20-2020 Office Visit 03/20/2020 Office Visit Otolaryngology Earlene Duran, DO [address] [facility] [address] [place] [address] [phone] [facility] Start: 02-08-2020 Administration of herpes zoster vaccine Zoster Vaccines (1 of 2) [facility] Start: 02-08-2020 Screening for malignant neoplasm of colon [facility] Start: 01-12-2020 Depression screening using PHQ-9 (Patient Health Questionnaire 9) score DEPRESSION SCREENING (PHQ9) [facility] Start: 01-12-2020 Screening for substance abuse SUBSTANCE ABUSE SCREENING (AUDIT-C) [facility] Start: 01-10-2020 End: 01-10-2020 Office Visit 01/10/2020 Office Visit Primary Care Kailyn Looney, DO [address] [facility] [address] [place] [address] [phone] [facility] Start: 01-07-2020 End: 01-07-2020 Follow-Up 01/07/2020 Follow-Up Otolaryngology Earlene Duran, DO [address] [facility] [address] [place] [address] [phone] [facility] Start: 12-31-2019 End: 12-31-2019 Follow-Up 12/31/2019 Follow-Up Otolaryngology Earlene Duran, DO [address] [facility] [address] [place] [address] [phone] [facility] Start: 12-25-2019 End: 12-25-2019 Clinical Support 12/25/2019 Clinical Support Otolaryngology Anisa Villaseñor AuD [facility] Start: 12-24-2019 End: 12-24-2019 Follow-Up 12/24/2019 Follow-Up Otolaryngology Earlene Duran, DO [address] [facility] [address] [place] [address] [phone] [facility] Start: 12-17-2019 End: 12-17-2019 Follow-Up 12/17/2019 Follow-Up Otolaryngology Earlene Duran, DO [address] [facility] [address] [place] [address] [phone] [facility] Start: 12-14-2019 History and physical examination, annual for health maintenance Wellness Visit [facility] Start: 12-13-2019 End: 12-13-2019 Follow-Up 12/13/2019 Follow-Up Otolaryngology Earlene Duran, DO [address] [facility] [address] [place] [address] [phone] [facility] Start: 09-06-2019 End: 09-06-2019 Office Visit 09/06/2019 Office Visit Primary Care Kailyn Looney, DO [address] [facility] [address] [place] [address] [phone] [facility] Start: 08-23-2019 End: 08-23-2019 Office Visit 08/23/2019 Office Visit Otolaryngology Leslie Buck, DO [address] [facility] [address] [place] [address] [phone] [facility] Start: 08-02-2019 End: 08-02-2019 Office Visit 08/02/2019 Office Visit Otolaryngology Earlene Duran, DO [address] [facility] [address] [place] [address] [phone] [facility] Start: 07-07-2019 Influenza vaccination given [facility] Start: 04-05-2019 End: 04-05-2019 Office Visit 04/05/2019 Office Visit Primary Care Kailyn Looney, DO [address] [facility] [address] [place] [address] [phone] [facility] Start: 02-22-2019 End: 02-22-2019 Office Visit 02/22/2019 Office Visit Primary Care Kailyn Looney DO [address] [facility] [address] [place] [address] [phone] [facility] Start: 01-11-2019 End: 01-11-2019 Office Visit 01/11/2019 Office Visit Primary Care Kailyn Looney DO [address] [facility] [address] [place] [address] [phone] [facility] Start: 12-15-2018 Adult depression screening assessment DEPRESSION SCREENING (PHQ9) [facility] Start: 12-15-2018 Depression screening using PHQ-9 (Patient Health Questionnaire 9) score DEPRESSION SCREENING (PHQ9) [facility] Start: 12-15-2018 Screening for substance abuse SUBSTANCE ABUSE SCREENING (AUDIT-C) [facility] Start: 12-15-2018 SUBSTANCE ABUSE SCREENING (AUDIT-C) SUBSTANCE ABUSE SCREENING (AUDIT-C) [facility] Start: 12-14-2018 End: 12-14-2018 Ambulatory 12/14/2018 Office Visit Primary Care Kailyn Looney DO [address] [facility] [address] [place] [address] [phone] [facility] Start: 07-07-2018 Influenza vaccination SEQUENTIAL INFLUENZA VACCINE (#1) [facility] Start: 07-07-2018 Influenza vaccination given SEQUENTIAL INFLUENZA VACCINE (#1) [facility] Start: 07-07-2017 Influenza vaccination SEQUENTIAL INFLUENZA VACCINE (#1) [facility] Work Phone: Start: 02-08-1988 Hepatitis C antibody, confirmatory test Hepatitis C Screening [facility] Start: 1986 COVID-19 Vaccine (1 of 2) COVID-19 Vaccine (1 of 2) [facility] Start: 1985 HIV screening HIV Screening [facility] Start: 1982 Adolescent depression screening assessment Depression Screening (PHQ9) [facility] Start: 1970 Prostate specific antigen measurement PSA Level [facility] Start: 1970 Tetanus vaccination [facility] Work Phone: End: 08-16-2020 Bacteria identified Aer cx Nom (Unsp spec) Urine Aerobic Culture Microbiology Routine Urinary frequency 1 Occurrences starting 08/16/2019 until 08/16/2020 [facility] Comment on above: 1 Occurrences starting 08/16/2019 until 08/16/2020 Bacteria identified Aer cx Nom (Unsp spec) Urine Aerobic Culture Microbiology Routine Urinary frequency 08/16/2019 9:30 AM EDT [facility] End: 12-15-2019 Complete blood count with white cell differential, manual CBC and Differential Routine Physical exam 1 Occurrences starting 12/14/2018 until 12/15/2019 [facility] Comment on above: 1 Occurrences starting 12/14/2018 until 12/15/2019 Complete blood count with white cell differential, manual CBC and Differential Routine Physical exam 12/14/2018 11:54 AM EST [facility] End: 01-10-2021 Complete blood count with white cell differential, manual CBC and Differential Lab Routine Physical exam 1 Occurrences starting 01/10/2020 until 01/10/2021 [facility] Comment on above: 1 Occurrences starting 01/10/2020 until 01/10/2021 End: 08-16-2020 Complete blood count with white cell differential, manual CBC and Differential Lab Routine Hypertension, essential 1 Occurrences starting 08/16/2019 until 08/16/2020 [facility] Comment on above: 1 Occurrences starting 08/16/2019 until 08/16/2020 End: 12-15-2019 Comprehensive metabolic 2000 panel Comprehensive Metabolic Panel Routine Physical exam 1 Occurrences starting 12/14/2018 until 12/15/2019 [facility] Comment on above: 1 Occurrences starting 12/14/2018 until 12/15/2019 End: 01-10-2021 Comprehensive metabolic 2000 panel Comprehensive Metabolic Panel Lab Routine Physical exam 1 Occurrences starting 01/10/2020 until 01/10/2021 [facility] Comment on above: 1 Occurrences starting 01/10/2020 until 01/10/2021 End: 08-16-2020 Comprehensive metabolic 2000 panel Comprehensive Metabolic Panel Lab Routine Hypertension, essential 1 Occurrences starting 08/16/2019 until 08/16/2020 [facility] Comment on above: 1 Occurrences starting 08/16/2019 until 08/16/2020 End: 12-16-2018 Comprehensive metabolic panel [AGGREGATE] Comprehensive Metabolic Panel Routine Physical exam 1 Occurrences starting 12/15/2017 until 12/16/2018 [facility] Work Phone: Comprehensive metabo lic panel [AGGREGATE] [facility] Work Phone: CT Angiogram Aorta Chest Abdomen Pelvis CT Angiogram Aorta Chest Abdomen Pelvis [place] 10/28/2018 12:26 AM EST [facility] End: 12-16-2018 HbA1c Hemoglobin A1c Routine Diabetes mellitus screening 1 Occurrences starting 12/15/2017 until 12/16/2018 [facility] Work Phone: HbA1c [facility] Work Phone: End: 01-10-2021 HbA1c (Bld) [Mass fraction] Hemoglobin A1c Lab Routine Diabetes mellitus screening 1 Occurrences starting 01/10/2020 until 01/10/2021 [facility] Comment on above: 1 Occurrences starting 01/10/2020 until 01/10/2021 End: 12-15-2019 Hemoglobin A1c/Hemoglobin.total mass fraction (Bld) Hemoglobin A1c Routine Diabetes mellitus screening 1 Occurrences starting 12/14/2018 until 12/15/2019 [facility] Comment on above: 1 Occurrences starting 12/14/2018 until 12/15/2019 End: 12-15-2019 Lipid 1996 panel Lipid Panel Routine Lipid screening 1 Occurrences starting 12/14/2018 until 12/15/2019 [facility] Comment on above: 1 Occurrences starting 12/14/2018 until 12/15/2019 Lipid 1996 panel Lipid Panel Rou maryjo Lipid screening 12/14/2018 11:54 AM EST [facility] End: 01-10-2021 Lipid 1996 panel Lipid Panel Lab Routine Lipid screening 1 Occurrences starting 01/10/2020 until 01/10/2021 [facility] Comment on above: 1 Occurrences starting 01/10/2020 until 01/10/2021 End: 08-16-2020 Lipid 1996 panel Lipid Panel Lab Routine Hypertriglyceridemia 1 Occurrences starting 08/16/2019 until 08/16/2020 [facility] Comment on above: 1 Occurrences starting 08/16/2019 until 08/16/2020 End: 12-16-2018 Lipid panel Lipid Panel Routine Lipid screening 1 Occurrences starting 12/15/2017 until 12/16/2018 [facility] Work Phone: Lipid panel Lipid Panel Rout ine Lipid screening 12/15/2017 10:08 AM EST [facility] Work Phone: Procedure on tissue specimen [facility] Comment on above: Release Upon Ordering for 1 Occurrences starting 12/11/2019, 1 completed End: 01-09-2021 Prostate specific Ag [Mass/Vol] PSA, Screen Lab Routine Prostate cancer screening 1 Occurrences starting 01/10/2020 until 01/09/2021 [facility] Comment on above: 1 Occurrences starting 01/10/2020 until 01/09/2021 End: 08-16-2020 Testosterone Free [Mass/Vol] Testosterone, Total and Free (Calculated) Lab Routine Androgen deficiency 1 Occurrences starting 08/16/2019 until 08/16/2020 [facility] Comment on above: 1 Occurrences starting 08/16/2019 until 08/16/2020 Immunizations Immunization Date Immunization Notes Care Provider Zulema piper 08-13-2019 Influenza, injectabl e, Madin Heather Canine Kidney, preservative free, quadrivalent Earlene Klapchar [facility] 07-19-2019 hepatitis A vaccine, adult dosage Abbie hn Cocumelli [facility] 07-19-2019 hepatitis A vaccine, unspecified formulation Kailyn Cocumelli [facility] 02-15-2019 hepatitis A vaccine, adult dosage Abbie hn Cocumelli [facility] 01-16-2019 hepatitis A vaccine, adult dosage Ri adan Klapchar [facility] 08-18-2017 influenza, injectabl e, quadrivalent, preservative free Earlene Klapchar [facility] 07-26-2016 influenza, injectabl e, quadrivalent, preservative free Earlene Klapchar [facility] Payers Date Payer Category Payer Self-pay [id number] 2024 Unknown [id number] 2015 Unknown [id number] 2015 Unknown xxxxxxxxx [id number] 2015 Unknown [facility] AREHTAO/EMILE CE PLUS/EFREM/EFREM PLUS [id number] 2015-Present [id number] 1970 Unknown [id number] [id number] 02 1970 Unknown [id number] [id number] 02 1970 Unknown [id number] [id number] 02 1970 Unknown [id number] 2.16.840.1.026787.3.579.2.9 00 1970 Unknown [id number] 2.16.840.1.843274.3.579.2.9 00 1970 Unknown [id number] 2.16.840.1.271640.3.579.2.9 00 1970 Unknown [id number] [id number] 03 Private Health Insurance [id number] Unknown [id number] [id number] 62 Unknown [id number] [id number] 62 Unknown [id number] [id number] 62 Unknown [id number] [id number] 62 Unknown [id number] 62 Social History Date Type Detail Facility Start: 12-15-2017 End: 08-16-2019 Tobacco smoking status [facility] Never smoker [facility] Work Phone: Sex Assigned At Not on file [facility] Work Phone: Start: 01-01-2016 Alcohol Comment rare [facility] Start: 07-19-2019 End: 08-16-2019 Alcohol intake Current drinker of alcohol (finding) [facility] Start: 07-19-2019 History SDOH Social Connections Phone 5 [facility] Start: 07-19-2019 History SDOH Food Worry 1 [facility] Start: 08-28-2020 Tobacco use and exposure Never used [facility] Start: 1970 Sex Assigned At Male [facility] if ever smoked [facility] Work Phone: Medical Equipment Procedure Code Equipment Code Equipment Origin al Text Equipment Identifier Dates Hemostat 4 X 8in Surgicel - Sn/A [id number] Start: 12-11-2019 Evaluation note Note Date & Type Note Facility Evaluation note No assessment information availa ble [facility] Work Phone: Reason for referral (narrative) Note Date & Type Note Facility Reason for referral (narrative) No reason for referral information available [facility] Work Phone: Assessments Note Patient: JANETELMIRAVINH RN: ([facility])-[phone] Age: 50 years Sex: Male : 1970 [...] your doctor if you can take an fuwc-hdf-cjoavkh pain medicine, such as acetaminophen (Tylenol), ibuprofen [...] Log into your personal health record on [email or web address] and enter S191 in the Education box to learn more about Flank Pain: Care Instructions. Current as of: July 29, 2018 Content Version: .9 2847-3828 [employer]. Care instructions adapted under license by your healthcare professional. If you have questions about a medical condition or this instruction, always ask your healthcare professional. [employer] disclaims any warranty or liability for your [...] your doctor if you can take an fvar-ayc-eyshelj medicine. Take short walks several times a [...] Log into your personal health record on [email or web address] and enter I594 in the Education box to learn more about Back Pain: Care Instructions. Current as of: July 26, 2018 Content Version: .20055292-8906 [employer]. Care instructions adapted under license by your healthcare professional. If you have questions about a medical condition or this instruction, always ask your healthcare professional. [employer] disclaims any warranty or liability for your [...] Log into your personal health record on [email or web address] and enter Y090 in the Education box to learn more about Back Stretches: Exercises. Current as of: July 26, 2018 Content Version: 11.9 9237-3101 [employer]. Care instructions adapted under license by your healthcare professional. If you have questions about a medical condition or this instruction, always ask your healthcare professional. [employer] disclaims any warranty or liability for your [...] not operate a vehicle (car, bike, motorcycle, well tester) machinery or power tools. Do not make [...] to call your physician or the hospital public address system operator if you have any questions, and [...] Provider Department Center 12/13/2019 9:15 AM Earlene Duran, DO [facility] 12/17/2019 9:15 AM Earlene Duran, DO [facility] 12/24/2019 9:15 AM Earlene Duran, DO [facility] 12/31/2019 9:15 AM [...] infront of you at the same time. Nhnc-tt-lhteo exercise 1. Lie on your back with [...] Log into your personal health record on [email or web address] and enter Z938 in the Education box to learn more about Low Back Pain: Exercises. Current as of: July 26, 2018 Content Version: 11.9 7415-0354 [employer]. Care instructions adapted under license by your healthcare professional. If you have questions about a medical condition or this instruction, always ask your healthcare professional. 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 He has tried muscle relaxant and [...] Coronary artery disease Mother at 66 [place] No Known Allergies The following portions of [...] the medications. This note was generated using [employer] voice recognition software in an effort to [...] Coronary artery disease Mother at 66 [place] No Known Allergies The following portions of [...] the medications. This note was generated using [employer] voice recognition software in an effort to [...] Coronary artery disease Mother at 66 [place] No Known Allergies The following portions of [...] the medications. This note was generated using [employer] voice recognition software in an effort to [...] Coronary artery disease Mother at 66 [place] No Known Allergies The following portions of [...] the medications. This note was generated using [employer] voice recognition software in an effort to [...] Coronary artery disease Mother at 66 [place] No Known Allergies The following portions of [...] the medications. This note was generated using [employer] voice recognition software in an effort to [...] Coronary artery disease Mother at 66 [place] No Known Allergies The following portions of [...] the medications. This note was generated using [employer] voice recognition software in an effort to [...] More than three times a week Attends pentecostalism service: Not on file Active member of club or organization: Not on file Attends meetings of clubs or organizations: Not on file Relationship status: Not on file Other Topics Concern Not on file Social History Narrative Not on file Family History Problem Relation Age of Onset COPD Mother Coronary artery disease Mother at 66 of [place] Past Surgical History: Procedure Laterality Date HERNIA [...] ENT clinic visit. Patient will contact our ophthalmic surgical assistant nurse to set up a time. He will also need to undergo preoperative testing. Patient understands and agreeable to this plan. documented in this encounter* Earlene Duran DO - 12/13/2019 9:21 AM EST [...] splint removal. documented in this encounter* Earlene Duran, - 12/17/2019 9:21 AM EST Subjective Patient [...] this time. 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 We have instructed him to blow his nose but to avoid manipulating the anterior part of the nose forcefully. documented in this encounter* Earlene Duran DO - 12/31/2019 9:35 AM EST [...] perfect midline. documented in this encounter* Earlene Duran, - 01/07/2020 9:31 AM EST Subjective [...] if needed. documented in this encounter* Kailyn Looney DO - 01/10/2020 8:30 AM EST Subjective: Patient [...] Coronary artery disease Mother at 66 of [place] No Known Allergies The following portions of [...] the medications. This note was generated using [employer] voice recognition software in an effort to [...] Coronary artery disease Mother at 66 [place] No Known Allergies The following portions of [...] the medications. This note was generated using [employer] voice recognition software in an effort to expedite communication. Please excuse results in grammatical or wording errors. 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 Advance Directives and Livin g Will Advance Directives and Livin g Will 12/11/2019 9:15 AM Documents on File Type Date Recorded 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 Advance Directives and Livin g Will 08/16/2019 11:01 PM Reason for Referral Status Reason Specialty Diagnoses / Procedures Referred By Contact Referred To Contact Authorized Sleep Medicine Diagnoses Witnessed episode of apnea Habitual snoring Kailyn Looney, DO [address] [facility] [address] [place] [address] Status Reason Specialty Diagnoses / Procedures Referre d By Contact Referred To Contact Closed Radiology Diagnoses Deviated nasal septum Chronic sinusitis, unspecified location Procedures CT Sinus Stealth Without Contrast Earlene Duran, DO [address] [facility] [address] [place] [address] Summary Purpose Family History No Family History Records FoundNo Family History Records FoundNo Family History Records FoundNo Family History Records FoundNo Family History Records Found Procedure Findings Note Patient: ALLA COLBYDhiraj Darby RN: (COL)-[id number] Age: 50 years Sex: Male : 1970 [...] transversus abdominis release. SURGEON: Demarcus Og MD REFUELER: Austin Zavala DO ANESTHESIA: General. ESTIMATED BLOOD [...] summary document to your follow up appointments. [facility] 09/27/20 11:21 [facility] [place]. [address] PATIENT INFORMATION Name: ALLA COLBYDhiraj Darby Address: [address] [place] [address] [place] [address] Age: 50 Years Phone: [phone] : 1970 12:00 Sex: Male Race: White Ethnicity: Not Hispan/Lat Admitted From: Clinic or [facility] Medical Service: Surgery Nurse Unit/Bed: ([place]) [facility] 5210-01 Admit Date: 09/22/2020 06:15 PCP: Physician, PCP Unknown PHYSICIANS INVOLVED WITH CARE Attending Physicians: Demarcus Og MD - Surgery Admitting Physician: None found Primary Care Physician:Physician, PCP Unknown,Family Practice,,, - Consults: None found Problems Active Incisional hernia without obstruction or gangrene HTN (hypertension) Allergies No Known Medicat (more content not included)... Note Patient: VINH COLBY Wilner RN: (COL)-[id number] Age: 50 years Sex: Male : 1970 [...] Procedures Performed PROCEDURES Ventral herniorrhaphy (SNOMED CT [id number]) performed by Earle MARS (more content not included)... Note Patient: VINH COLBY Wilner RN: (COL)-[id number] Age: 50 years Sex: Male : 1970 [...] summary document to your follow up appointments. [facility] 09/27/20 11:21 [address] [place]. [address] PATIENT INFORMATION Name: VINH COLBY Address: [address] [place] [address] [place] [address] Age: 50 Years Phone: [phone] : 1970 12:00 MRN: ([id number] Sex: Male Race: White Ethnicity: Not Hispan/Lat Admitted From: Clinic or [facility] Medical Service: Surgery Nurse Unit/Bed: ([place]) [facility] Admit Date: 09/22/2020 06:15 PCP: Physician, PCP Unknown PHYSICIANS INVOLVED WITH CARE Attending Physicians: Demarcus Og MD - Surgery Admitting Physician: None found Primary Care Physician:Physician, PCP Unknown,Family Practice,,, - Consults: None found Problems Active Incisional hernia without obstruction or gangrene HTN (hypertension) Allergies No Known Medicat (more content not included)... Note Patient: VINH COLBY RN: ([id number] Age: 50 years Sex: Male : 1970 [...] Procedures Performed PROCEDURES Ventral herniorrhaphy (SNOMED CT [id number]) performed by Earle MARS (more content not [...] Diagnoses chronic nasal obstruction,DNS, turbinate hypertropgy Procedures NV EXCISION TURBINATE,SUBMUCOUS NV REPAIR OF NASAL SEPTUM Earlene Duran DO [address] [facility] [address] [place] [address] Reason Comments Erectile Dysfunction Discuss testosteron e , pt has been off testosterone since March- he is very frustrated Hypertension Status Reason Specialty Diagnoses / Procedures Referre d By Contact Referred To Contact Closed Radiology Diagnoses Deviated nasal septum Chronic sinusitis, unspecified location Procedures CT Sinus Stealth Without Contrast Earlene Duran DO [address] [facility] [address] [place] [address] ED Provider Notes - Leslie Chung, - 10/27/2018 4:18 PM ESTED Attestation Note - Leslie Chung, - 10/27/2018 4:17 PM EST Miscellaneous Notes (unrecog nized section and content) Formatting of this note may be different from the original. ED PROVIDER NOTE [facility] EMERGENCY DEPARTMENT NAME: Vinh Colby AGE: 48 y.o. : 1970 VISIT DATE: 10/27/2018 CSN: [id number] PCP: Kailyn Looney DO Chief Complaint Patient [...] Coronary artery disease Mother at 66 [place] Social History Social History Marital status: Spouse [...] Colorless, Yellow Clarity, Urine Clear Clear Specific [place] 1.024 1.005 - 1.025 pH, Urine 5.0 [...] Normal appendix and unremarkable abdominal gas pattern. [facility]/[place] Workstation ID: [id number] Procedures MDM Pain medicine [...] Kailyn Looney DO. Specialty: Family Medicine [address] [facility] [address] [place] [address] 2. [facility] Emergency Department. Specialty: Emergency Medicine Why: If symptoms worsen [address] [place] [address] Contact information for after-discharge care Follow-up information [...] note may be different from the original. [facility] ED Resident Note: NAME: Vinh Colby 48 y.o. CSN: [id number] PCP: Kailyn Looney DO History: Chief Complaint: [...] Coronary artery disease Mother at 66 of [place] SOC. Hx: Social History Social History Marital [...] other known risk factors. Radiology 2017. Feb 23:042865. DOI: 10.1148/[id number]. WPT/vrs Workstation ID: [id number] Procedures: Procedures ED [...] of his stay with us. Patient has Horseheads 5 and Valium at home from his [...] Jace Collado DO ED Resident Physician [facility] Emergency Department (Please note that portions [...] but it is just worse.in this encounter [facility] DEPARTMENT OF OTOLARYNGOLOGY Patient Name: Vinh Colby Date: 1970 Billing Number: [id number] Date of Procedure: 12/11/2019 Time: 1110 Pre Operative Diagnoses: 1. Deviated Nasal Septum 2. Nasal Obstruction 3. Bilateral Inferior Turbinate Hypertrophy Post Operative Diagnoses: 1. Deviated Nasal Septum 2. Nasal Obstruction 3. Bilateral Inferior Turbinate Hypertrophy Procedures: 1. Septoplasty 2. Bilateral Inferior Turbinate Reduction with Radiofrequency Ablation via Celon Surgeon: Dr. Earlene Duran DO Pelt Dropper: 1. Maci Duran DO, ENT Resident PGY-5 [...] time out was performed by Dr. Earlene Duran to verify the correct patient and procedure, and everyone in the room was in agreement. The nasal septum was injected with 1% lido with [id number] epinephrine and a total of 10 cc [...] recovery room in stable condition. Dr. Earlene Duran was present during or performed the essential portions of the procedure and was involved in all medical and surgical decision-making. Specimens: Septal contents Estimated Blood Loss: 40 cc Complications: None. documented in this encounter Earlene Duran, - 12/11/2019 10:19 AM ESTMcSandro Robertson DO - 11/29/2019 9:31 AM EST H&P Notes (unrecognized sect ion and content) INTERVAL HISTORY AND PHYSICAL Patient Name: Vinh Colby Admit Date: MR #: [id number] : 1970 The H&P has been reviewed and the patient has been examined. I concur with the findings of the H&P. There are no significant changes. It is appropriate to proceed with the planned procedure. Earlene Duran DO 12/11/2019 10:19 AM Assessment and [...] Coronary artery disease Mother at 66 of [place] @ Prior to Admission medications Medication Sig [...] section and content) DATE CREATED AUTHOR 01/10/2020 [facility] DATE CREATED AUTHOR AUTHOR'S ORGANIZ ATION 05/29/2020 [facility] DATE CREATED AUTHOR AUTHOR'S ORGANIZ ATION 10/12/2020 [facility] DATE CREATED AUTHOR AUTHOR'S ORGANIZ ATION 12/13/2022 [facility] DATE CREATED AUTHOR AUTHOR'S ORGANIZ ATION 07/05/2025 [facility] Goals (unrecognized section and content) Goals [...] BE BASED ON THE PRIMARY CLINICAL RECORDS. [facility]. provides no warranty or guarantee of the accuracy or completeness of information in this document.
[2025-07-09 10:08] LABS: Thyroglobulin, Serum Qt. 27.7 ng/mL (1.4-29.2); Thyroid Stim Immunoglob 3.27 IU/L (0.00-0.55)
== END | disposition home or self-care (01) ==
LOC: LAB.FUTURE 07:25 → LAB 07:46
PROVIDERS: PCP Family Medicine; Referring Provider Family Medicine; Visit Provider Family Medicine
DX: R94.6 Abnormal results of thyroid function studies (principal)
CPT/HCPCS: 36415; 84432; 84445; 86376; 86800

== ENCOUNTER → 2025-09-17 | Outpatient (CLI) | payer OTHER, SELFPAY ==
--- OUTSIDE RECORDS SUMMARY | 2025-09-17 07:33 | XMS RPT_ITS | CCD ---
Author Organization [facility] Care Team Providers Care Application Support Lead Name Role Phone Kailyn Looney Unavailable [phone] EARLENE COWAN Attending Unavail able EARLENE COWAN Referring Unavail able KAILYN LOONEY Primary Care Unavaila ble LETICIAAPBETSY, EARLENE JO Admitting Unavail able EARLENE COWAN Attending Unavail [...] le GAIBLE, SANDRA ALVARADO Referring Unavailab le COCUMELLKAILYN Cobb Primary Care Unavaila ble Kailyn Looney Primary Care Provider KAILYN LOONEY Attending Unavaila ble COCUMEKAILYN MAHER Primary Care Unavaila ble Patrice MARS, Dr. Kailyn Ta Primary Care Provider Patrice MARS, Dr. Kailyn Ta Attending Provider Dr. Kailyn Ibrahim MD Referring Provider Kailyn Ibrahim Primary Care Unavailable Kailyn Ibrahim Referring Unavailable Kailyn Ibrahim Attending Unavailable Kailyn Ibrahim Referring Unavailable Kailyn Ibrahim Attending Unavailable Kailyn Ibrahim Primary Care Unavailable Kailyn Ibrahim Referring Unavailable Kailyn Ibrahim Attending Unavailable Kailyn Ibrahim Primary Care Unavailable Kailyn Ibrahim Primary Care Unavailable Kailyn Ibrahim Referring Unavailable Kailyn Ibrahim Attending Unavailable Kailyn Ibrahim Primary Care Unavailable Kailyn Ibrahim Referring Unavailable Kailyn Ibrahim Attending Unavailable Medications Current [...] 08/02/2019 Active dexamethasone 6 mg oral tablet (4 sources) Corticosteroid Start: 08-03-2022 take 1 tablet [...] Active Start: 01-11-2019 take 1 capsule by [facility] once daily hydroCHLOROthiazide (MICROZIDE) 12.5 mg [...] spray(s) nasal route every hour sodium chloride ([place] Nasal) 0.65 % nasal spray Instill 2 [...] Start: 08-18-2017 take 2 tablets by mo [facility] once daily, then take 1 tablet by [...] mg/ml oral solution (1 source) Phenothiazine, Uncompetitive M-ykvakf-M-aspartat e Receptor Antagonist, Sigma-1 Agonist Start: 02-27-2019 [...] Start: 01-15-2016 apply 30 g rectal ro [place] three times daily hydrocortisone-pramoxine (ANALPRAM-HC) 2.5-1 % [...] mental disorders or infectious disease) (1 source) Abnormal results of thyroid function studies; Translations: [Abnormal results of thyroid function studies] Onset: 07-10-2025 Episodic Other upper respiratory disease (1 source) [...] present; Translations: [Medication side effect] Viral infection (4 sources) Disease caused by 2019-nCoV; Translations: [COVID-19] [...] Test Name Value Interpretation Reference Range Facility Thyroglobulin w/Anti-TG ABon 07-09-2025 Anti-TG AB < 1.0 Normal 0.0-0.9 [facility] Comment on above: Result Comment: Thyr oglobulin Antibody measured by Joanne Davis Methodology It should be noted that the presence of thyroglobulin antibodies may not be pathogenic nor diagnostic, especially at very low levels. The assay associate manager has found that four percent of individuals without evidence of thyroid disease or autoimmunity will have positive TgAb levels up to 4 IU/mL. Performed By: #### L 3300.6820, L3300.6900, L3400.4700 #### [facility] Laboratory [address] [place], [place], [id number] THYROGLOB QUANT 27.7 ng/mL Normal 1.4-29.2 [facility] Comment on above: Result Comment: Acco rding to the National Academy of Clinical Biochemistry, the reference interval for Thyroglobulin (TG) should be related to euthyroid patients and not for patients who underwent thyroidectomy. TG reference intervals for these patients depend on the residual mass of the thyroid tissue left after surgery. Establishing a post-operative baseline is recommended. The assay limit of quantitation is 0.1 ng/mL Thyroglobulin measured by Joanne Davis Immunometric Assay Performed By: #### L 3300.6820, L3300.6900, L3400.4700 #### [facility] Laboratory [address] [place], [place], [id number] Thyroid Peroxidase ABon 09- THYR PEROX AB 104 IU/mL High 0-34 [facility] Comment on above: Result Comment: Perf ormed at: [facility] [address] [id number] Personal Support Worker: Lalo Lemus MD, Phone: [phone] Performed at: [facility] [address] [id number] Personal Support Worker: Fadi Prince PhD, Phone: [phone] Performed By: #### L 3300.6820, L3300.6900, L3400.4700 #### [facility] Laboratory [address] [place], [place], [id number] Thyroid Stim Immunoglobon THY STIM IMMUNO 3.27 IU/L Abnormal 0.00-0.55 [facility] Comment on above: Performed By: #### L 3300.6820, L3300.6900, L3400.4700 #### [facility] Laboratory [address] [place], [place], [id number] Serum or plasma thyroperoxid ase antibody assay (units/volume)Ordered By: Kailyn Ibrahim on 07-05-2025 TPO Ab Qn 104 [IU]/mL High 0-34 [facility] Comment on above: Performed at: - [address] [id number] Director: Lalo Lemus MD, Phone: [phone] at: - [facility] [address] [id number] Director: Fadi Prince PhD, Phone: [phone] Thyroid stimulating immunogl obulins detectionOrdered By: Kailyn Ibrahim on 07-05-2025 Thyroid stimulating immunoglobulins Ql (S) 3.27 IU/L High 0.00-0.55 [facility] Absolute lymphocyte countOrd ered By: Kailyn Ibrahim on 07-03-2025 Lymphocytes Auto (Unsp spec) [#/Vol] 2.14 10*3/uL 0.83-4.51 [facility] Absolute neutrophil countOrd ered By: Kailyn Ibrahim on 07-03-2025 Neutrophils (Bld) [#/Vol] 4.0 10*3/uL 2.0-7.7 [facility] Anion gap in Serum or Plasma Ordered By: Kailyn Ibrahim on 07-03-2025 Anion gap [Moles/Vol] 12 mmol/L 5-15 [facility] Automated lymphocyte count a s percentage of total leukocytesOrdered By: Kailyn Ibrahim on 07-03-2025 Lymphocytes/100 WBC Auto (Unsp spec) 29.9 % 19-41 [facility] BUN/creatinine ratioOrdered By: Kailyn Ibrahim on 07-03-2025 Urea nitrogen/Creatinine [Mass ratio] 15.2 mg/mg 10-20 [facility] Basophil percentageOrdered B y: Kailyn Ibrahim on 07-03-2025 Basophils/100 WBC (Bld) 0.6 % 0-1 [facility] Bilirubin, totalOrdered By: Kailyn Ibrahim on 07-03-2025 Bilirubin [Mass/Vol] 1.11 mg/dL 0.00-1.30 [facility] CBC W/Diff, Automatedon 08- Absolute Lymph 2.14 X10 3/uL Normal 0.83-4.51 [facility] Comment on above: Order Comment: Order Date: 06/03/25 Order Info: [id number]- - CBCD Performed By: #### L 501.9520, L506.0400, L500.4100, L500.4050, L100.0100 #### [facility] Laboratory [address] [place], [address] Absolute Neut 4.0 X10 3/uL Normal 2.0-7.7 [facility] Comment on above: Order Comment: Order Date: 06/03/25 Order Info: [id number] - CBCD Performed By: #### L 501.9520, L506.0400, L500.4100, L500.4050, L100.0100 #### [facility] [address] [place], [address] Basophils/100 WBC (Bld) 0.6 % Normal 0-1 [facility] Comment on above: Order Comment: Order Date: 06/03/25 Order Info: [id number] - CBCD Performed By: #### L 501.9520, L506.0400, L500.4100, L500.4050, L100.0100 #### [facility] [address] [place], [address] Eosinophils/100 WBC (Bld) 2.1 % Normal 0-5 [facility] Comment on above: Order Comment: Order Date: 06/03/25 Order Info: 018- - CBCD Performed By: #### L 501.9520, L506.0400, L500.4100, L500.4050, L100.0100 #### [facility] [address] [place], [address] Erythrocyte distribution width (RBC) [Ratio] 13.1 % Normal 11.6-14.6 [facility] Comment on above: Order Comment: Order Date: 06/03/25 Order Info: 0184-1 - CBCD Performed By: #### L 501.9520, L506.0400, L500.4100, L500.4050, L100.0100 #### [facility] [address] [place], [address] Hematocrit (Bld) [Volume fraction] 44.5 % Normal 40-54 [facility] Comment on above: Order Comment: Order Date: 06/03/25 Order Info: 0184-1 - CBCD Performed By: #### L 501.9520, L506.0400, L500.4100, L500.4050, L100.0100 #### [facility] [address] [place], [address] Hemoglobin (Bld) [Mass/Vol] 15.6 g/dL Normal 13.0-16.5 [facility] Comment on above: Order Comment: Order Date: 06/03/25 Order Info: 0184-1 - CBCD Performed By: #### L 501.9520, L506.0400, L500.4100, L500.4050, L100.0100 #### [facility] [address] [place], [address] IG% 0.300 Normal 0.0-0.9 [facility] Comment on above: Order Comment: Order Date: 06/03/25 Order Info: 0184-1 - CBCD Result Comment: IG% - Immature Granulocytes (promyelocytes, myelocytes and metamyelocytes) > 1% indicates that a LEFT SHIFT is Present. Performed By: #### L 501.9520, L506.0400, L500.4100, L500.4050, L100.0100 #### [facility] [address] [place], [address] Lymphocytes/100 WBC (Bld) 29.9 % Normal 19-41 [facility] Comment on above: Order Comment: Order Date: 06/03/25 Order Info: 018- - CBCD Performed By: #### L 501.9520, L506.0400, L500.4100, L500.4050, L100.0100 #### [facility] [address] [place], [address] MCH (RBC) [Entitic mass] 29.9 pg Normal 27.0-32.0 [facility] Comment on above: Order Comment: Order Date: 06/03/25 Order Info: 018- - CBCD Performed By: #### L 501.9520, L506.0400, L500.4100, L500.4050, L100.0100 #### [facility] [address] [place], [address] MCHC (RBC) [Mass/Vol] 35.1 g/dL Normal 32-36 [facility] Comment on above: Order Comment: Order Date: 06/03/25 Order Info: 018- - CBCD Performed By: #### L 501.9520, L506.0400, L500.4100, L500.4050, L100.0100 #### [facility] [address] [place], [address] MCV (RBC) [Entitic vol] 85.4 fL Normal 80-94 [facility] Comment on above: Order Comment: Order Date: 06/03/25 Order Info: 018- - CBCD Performed By: #### L 501.9520, L506.0400, L500.4100, L500.4050, L100.0100 #### [facility] [address] [place], [address] Monocytes/100 WBC (Bld) 11.2 % High 0-10 [facility] Comment on above: Order Comment: Order Date: 06/03/25 Order Info: 0184- - CBCD Performed By: #### L 501.9520, L506.0400, L500.4100, L500.4050, L100.0100 #### [facility] [address] [place], [address] Neutrophils/100 WBC (Bld) 55.9 % Normal 47-70 [facility] Comment on above: Order Comment: Order Date: 06/03/25 Order Info: 0184- - CBCD Performed By: #### L 501.9520, L506.0400, L500.4100, L500.4050, L100.0100 #### [facility] [address] [place], [address] Nucleated RBC (Bld) [#/Vol] 0 10*3/uL Normal 0-5 [facility] Comment on above: Order Comment: Order Date: 06/03/25 Order Info: 0184- - CBCD Performed By: #### L 501.9520, L506.0400, L500.4100, L500.4050, L100.0100 #### [facility] [address] [place], [address] Platelet mean volume (Bld) [Entitic vol] 9.6 fL Normal 6.2-12.0 [facility] Comment on above: Order Comment: Order Date: 06/03/25 Order Info: 0184- - CBCD Performed By: #### L 501.9520, L506.0400, L500.4100, L500.4050, L100.0100 #### [facility] [address] [place], [address] Platelets (Bld) [#/Vol] 262 10*3/uL Normal 150-450 [facility] Comment on above: Order Comment: Order Date: 06/03/25 Order Info: 0184- - CBCD Performed By: #### L 501.9520, L506.0400, L500.4100, L500.4050, L100.0100 #### [facility] [address] [place], [place], [address] RBC (Bld) [#/Vol] 5.21 10*6/uL Normal 4.6-6.2 [facility] Comment on above: Order Comment: Order Date: 06/03/25 Order Info: 0184-1 - CBCD Performed By: #### L 501.9520, L506.0400, L500.4100, L500.4050, L100.0100 #### [facility] [address] [place], [place], [address] RDW SD 40.7 fl Normal 35.1-43.9 [facility] Comment on above: Order Comment: Order Date: 06/03/25 Order Info: 0184-1 - CBCD Performed By: #### L 501.9520, L506.0400, L500.4100, L500.4050, L100.0100 #### [facility] [address] [place], [place], [address] WBC (Bld) [#/Vol] 7.2 10*3/uL Normal 4.4-11.0 [facility] Comment on above: Order Comment: Order Date: 06/03/25 Order Info: 0184-1 - CBCD Performed By: #### L 501.9520, L506.0400, L500.4100, L500.4050, L100.0100 #### [facility] [address] [place], [place], [address] Calculated very low density lipoprotein (VLDL) cholesterol measurementOrdered By: Kailyn Ibrahim on 07-03-2025 Calculated very low density lipoprotein (VLDL) cholesterol measurement 19 mg/dL 5-40 [facility] Carbon dioxide, total [Moles /volume] in Central venous bloodOrdered By: Kailyn Ibrahim on 07-03-2025 CO2 [Moles/Vol] 22.1 mmol/L 21.0-32.0 [facility] Chloride assayOrdered By: Abbie Ibrahim on 07-03-2025 Chloride [Moles/Vol] 107 mmol/L 98-108 [facility] Comprehensive Metabolic Prof ilon 07-03-2025 Albumin [Mass/Vol] 3.9 g/dL Normal 3.5-5.0 [facility] Comment on above: Order Comment: Order Date: 06/03/25Order Info: [id number] - CMPOrder Info: [id number] - LIPIDOrder Info: [id number] - TSHOrder Info: [id number] - T4F Performed By: #### L 3300.6820, L3300.6900, L3400.4700 #### [facility] [address] [place], [address] Albumin/Globulin [Mass ratio] 1.3 {ratio} Normal 0.9-2.4 [facility] Comment on above: Order Comment: Order Date: 06/03/25Order Info: [id number] - CMPOrder Info: [id number] - LIPIDOrder Info: [id number] - TSHOrder Info: 3027 - T4F Performed By: #### L 3300.6820, L3300.6900, L3400.4700 #### [facility] [address] [place], [address] ALK PHOS 83 U/L Normal 40-129 [facility] Comment on above: Order Comment: Order Date: 06/03/25Order Info: [id number] - CMPOrder Info: [id number] - LIPIDOrder Info: [id number] - TSHOrder Info: 3027 - T4F Performed By: #### L 3300.6820, L3300.6900, L3400.4700 #### [facility] [address] [place], [address] ALT [Catalytic activity/Vol] 35 U/L Normal <=46 [facility] Comment on above: Order Comment: Order Date: 06/03/25Order Info: [id number] - CMPOrder Info: [id number] - LIPIDOrder Info: [id number] - TSHOrder Info: 3024-7 - T4F Performed By: #### L 3300.6820, L3300.6900, L3400.4700 #### [facility] [address] [place], [address] AST [Catalytic activity/Vol] 34 U/L Normal <=37 [facility] Comment on above: Order Comment: Order Date: 06/03/25Order Info: 0786-1 - CMPOrder Info: [id number] - LIPIDOrder Info: [id number] - TSHOrder Info: 3024-7 - T4F Result Comment: Hemo lysis present, Results??could be affected. ?? Performed By: #### L 3300.6820, L3300.6900, L3400.4700 #### [facility] [address] [place], [address] Bilirubin [Mass/Vol] 1.11 mg/dL Normal 0.00-1.30 [facility] Comment on above: Order Comment: Order Date: 06/03/25Order Info: 86-1 - CMPOrder Info: [id number] - LIPIDOrder Info: [id number] - TSHOrder Info: 3024-7 - T4F Performed By: #### L 3300.6820, L3300.6900, L3400.4700 #### [facility] [address] [place], [address] BUN/CRE 15.2 RATIO Normal 10-20 [facility] Comment on above: Order Comment: Order Date: 06/03/25Order Info: 86-1 - CMPOrder Info: [id number] - LIPIDOrder Info: [id number] - TSHOrder Info: 3024-7 - T4F Performed By: #### L 3300.6820, L3300.6900, L3400.4700 #### [facility] [address] [place], [address] Calcium [Mass/Vol] 9.1 mg/dL Normal 7.6-11.0 [facility] Comment on above: Order Comment: Order Date: 06/03/25Order Info: 86-1 - CMPOrder Info: [id number] - LIPIDOrder Info: [id number] - TSHOrder Info: 3024-7 - T4F Performed By: #### L 3300.6820, L3300.6900, L3400.4700 #### [facility] [address] [place], [address] Chloride [Moles/Vol] 107 mmol/L Normal 98-108 [facility] Comment on above: Order Comment: Order Date: 06/03/25Order Info: 86-1 - CMPOrder Info: [id number] - LIPIDOrder Info: [id number] - TSHOrder Info: 3024-7 - T4F Performed By: #### L 3300.6820, L3300.6900, L3400.4700 #### [facility] [address] [place], [address] CO2 [Moles/Vol] 22.1 mmol/L Normal 21.0-32.0 [facility] Comment on above: Order Comment: Order Date: 06/03/25Order Info: 785-1 - CMPOrder Info: [id number] - LIPIDOrder Info: [id number] - TSHOrder Info: 3024-7 - T4F Performed By: #### L 3300.6820, L3300.6900, L3400.4700 #### [facility] [address] [place], [address] Creatinine [Mass/Vol] 0.99 mg/dL Normal 0.70-1.20 [facility] Comment on above: Order Comment: Order Date: 06/03/25Order Info: 0786-1 - CMPOrder Info: [id number] - LIPIDOrder Info: [id number] - TSHOrder Info: 3024-7 - T4F Performed By: #### L 3300.6820, L3300.6900, L3400.4700 #### [facility] [address] [place], [address] GAP 12 Normal 5-15 [facility] Comment on above: Order Comment: Order Date: 06/03/25Order Info: [id number] - CMPOrder Info: [id number] - LIPIDOrder Info: 3 - TSHOrder Info: 302-7 - T4F Performed By: #### L 3300.6820, L3300.6900, L3400.4700 #### [facility] [address] [place], [address] GFR/1.73 sq M.predicted among non-blacks MDRD (S/P/Bld) [Vol rate/Area] 90 mL/min/{1.73_m2} Normal >60 [facility] Comment on above: Order Comment: Order Date: 06/03/25Order Info: 785- - CMPOrder Info: - LIPIDOrder Info: 3 - TSHOrder Info: 7 - T4F Result Comment: mL/m in/1.73m2 CKD-EPI Creatinine Equation (2020) Performed By: #### L 3300.6820, L3300.6900, L3400.4700 #### [facility] [address] [place], [address] Globulin (S) [Mass/Vol] 3.1 g/dL Normal 2.2-4.2 [facility] Comment on above: Order Comment: Order Date: 06/03/25Order Info: 07 - CMPOrder Info: - LIPIDOrder Info: 6-3 - TSHOrder Info: [id number] - T4F Performed By: #### L 3300.6820, L3300.6900, L3400.4700 #### [facility] [address] [place], [address] Glucose [Mass/Vol] 96 mg/dL Normal 70-99 [facility] Comment on above: Order Comment: Order Date: 06/03/25Order Info: 0786- - CMPOrder Info: [id number] - LIPIDOrder Info: 3 - TSHOrder Info: 3024-7 - T4F Performed By: #### L 3300.6820, L3300.6900, L3400.4700 #### [facility] [address] [place], [place], [address] Potassium [Moles/Vol] 4.3 mmol/L Normal 3.3-5.1 [facility] Comment on above: Order Comment: Order Date: 06/03/25Order Info: 86-1 - CMPOrder Info: [id number] - LIPIDOrder Info: [id number] - TSHOrder Info: 3024-7 - T4F Result Comment: Hemo lysis present, Results??could be affected. ?? Performed By: #### L 3300.6820, L3300.6900, L3400.4700 #### [facility] [address] [place], [address] Sodium [Moles/Vol] 140 mmol/L Normal 133-145 [facility] Comment on above: Order Comment: Order Date: 06/03/25Order Info: 86-1 - CMPOrder Info: [id number] - LIPIDOrder Info: [id number] - TSHOrder Info: 3024-7 - T4F Performed By: #### L 3300.6820, L3300.6900, L3400.4700 #### [facility] [address] [place], [place], [address] T PROT 7.0 g/dL Normal 5.9-8.4 [facility] Comment on above: Order Comment: Order Date: 06/03/25Order Info: [id number] - CMPOrder Info: [id number] - LIPIDOrder Info: [id number] - TSHOrder Info: 3024-7 - T4F Performed By: #### L 3300.6820, L3300.6900, L3400.4700 #### [facility] [address] [place], [place], [address] Urea nitrogen [Mass/Vol] 15 mg/dL Normal 4-19 [facility] Comment on above: Order Comment: Order Date: 06/03/25Order Info: [id number] - CMPOrder Info: [id number] - LIPIDOrder Info: [id number] - TSHOrder Info: [id number] - T4F Performed By: #### L 3300.6820, L3300.6900, L3400.4700 #### [facility] [place], [address] Eosinophil percentageOrdered By: Kailyn Ibrahim on 07-03-2025 Eosinophils/100 WBC (Bld) 2.1 % 0-5 [facility] Erythrocyte distribution wid th ratioOrdered By: Kailyn Ibrahim on 07-03-2025 Erythrocyte distribution width (RBC) [Ratio] 13.1 % 11.6-14.6 [facility] Erythrocyte distribution wid th standard deviationOrdered By: Kailyn Ibrahim on 07-03-2025 Erythrocyte distribution width (RBC) [Ratio] 40.7 fl 35.1-43.9 [facility] Glomerular filtration rate ( GFR) estimation/1.73 sq m using serum, plasma, or whole bOrdered By: Kailyn Ibrahim on 07-03-2025 GFR/1.73 sq M.predicted among non-blacks MDRD (S/P/Bld) [Vol rate/Area] 90 mL/min/{1.73_m2} >60 [facility] Comment on above: mL/min/1.73m2 CKD-EP I Creatinine Equation (2020) Hematocrit Auto (Bld) [Volum e fraction]Ordered By: Kailyn Ibrahim on 07-03-2025 Hematocrit (Bld) [Volume fraction] 44.5 % 40-54 [facility] Hemoglobin measurementOrdere d By: Kailyn Ibrahim on 07-03-2025 Hemoglobin (Bld) [Mass/Vol] 15.6 g/dL 13.0-16.5 [facility] Immature granulocytes/100 WB C Auto (Bld)Ordered By: Kailyn Ibrahim on 07-03-2025 Immature granulocytes/100 WBC (Bld) 0.300 % 0.0-0.9 [facility] Comment on above: IG% - Immature Granu locytes (promyelocytes, myelocytes and metamyelocytes) > 1% indicates that a LEFT SHIFT is Present. LDL calc ser/plasOrdered By: Kailyn Ibrahim on 07-03-2025 Cholesterol in LDL [Mass/Vol] 79 mg/dL [facility] Comment on above: Schygrzmiq=637-932 m g/dL & Higher Kacg=268 mg/dL or greaterFriedwald Equation for LDL-C Laboratory - Chemistry and C hemistry - challengeOrdered By: Kailyn Ibrahim on 07-03-2025 AST [Catalytic activity/Vol] 34 U/L <38 [facility] Comment on above: Hemolysis present, R esults could be affected. Lipid Profileon 07-03-2025 CHOL:HDL 2.65 Normal [facility] Comment on above: Order Comment: Order Date: 06/03/25Order Info: 0786-1 - CMPOrder Info: [id number] - LIPIDOrder Info: 6-3 - TSHOrder Info: [id number] T4F Performed By: #### L 3300.6820, L3300.6900, L3400.4700 #### [facility] [address] [place], [address] Cholesterol [Mass/Vol] 157 mg/dL Normal <=200 [facility] Comment on above: Order Comment: Order Date: 06/03/25Order Info: 07 - CMPOrder Info: [id number] - LIPIDOrder Info: 63 - TSHOrder Info: [id number] T4F Result Comment: Chol esterol level, Desirable <200 mg/dL Borderline high cholesterol 200-239 mg/dL High cholesterol >=240 mg/dL Recommendations of the NCEP Adult Treatment Panel for the following risk-cutoff thresholds for the [place] population. Performed By: #### L 3300.6820, L3300.6900, L3400.4700 #### [facility] [address] [place], [address] Cholesterol in HDL [Mass/Vol] 59 mg/dL Normal [facility] Comment on above: Order Comment: Order Date: 06/03/25Order Info: [id number] - CMPOrder Info: [id number] - LIPIDOrder Info: [id number] - TSHOrder Info: [id number] - T4F Result Comment: Nisha onal Cholesterol Education Program (NCEP) guidelines: <40 mg/dL: Low HDL-cholesterol (major risk factor for CHD) >= 60 mg/dL: High HDL-cholesterol (negative risk factor for CHD) HDL-cholesterol is affected by a number of factors, e.g. smoking, exercise, hormones, sex and age. Performed By: #### L 3300.6820, L3300.6900, L3400.4700 #### [facility] [address] [place], [address] Cholesterol in LDL [Mass/Vol] 79 mg/dL Normal [facility] Comment on above: Order Comment: Order Date: 06/03/25Order Info: 86-1 - CMPOrder Info: [id number] - LIPIDOrder Info: [id number] - TSHOrder Info: [id number] - T4F Result Comment: Bord plsgem=839-874 mg/dL Higher Rggh=816 mg/dL or greater Friedwald Equation for LDL-C Performed By: #### L [id number], L3300.6900, L3400.4700 #### [facility] [address] [place], [address] Cholesterol in VLDL [Mass/Vol] 19 mg/dL Normal 5-40 [facility] Comment on above: Order Comment: Order Date: 06/03/25Order Info: 86-1 - CMPOrder Info: [id number] - LIPIDOrder Info: [id number] - TSHOrder Info: [id number] - T4F Performed By: #### L [id number], L3300.6900, L3400.4700 #### [facility] [address] [place], [address] Triglyceride [Mass/Vol] 95 mg/dL Normal [facility] Comment on above: Order Comment: Order Date: 06/03/25Order Info: 86-1 - CMPOrder Info: [id number] - LIPIDOrder Info: [id number] - TSHOrder Info: [id number] - T4F Result Comment: The drugs N-Acetylcysteine and Metamizole may falsely depress this assay. Normal range: <150 mg/dL Borderline High: 150-199 mg/dL High: 200-499 mg/dL Very High: >500 mg/dL Performed By: #### L 3300.6820, L3300.6900, L3400.4700 #### [facility] [place], [address] MCV (mean corpuscular volume ) determinationOrdered By: Kailyn Ibrahim on 07-03-2025 MCV (RBC) [Entitic vol] 85.4 fL 80-94 [facility] Mean corpuscular hemoglobin (MCH) determinationOrdered By: Kailyn Ibrahim on 07-03-2025 MCH (RBC) [Entitic mass] 29.9 pg 27.0-32.0 [facility] Mean corpuscular hemoglobin concentration (MCHC) determinationOrdered By: Kailyn Ibrahim on 07-03-2025 MCHC (RBC) [Mass/Vol] 35.1 g/dL 32-36 [facility] Mean platelet volume determi nationOrdered By: Kailyn Ibrahim on 07-03-2025 Platelet mean volume (Bld) [Entitic vol] 9.6 fL 6.2-12.0 [facility] Monocyte percentageOrdered B y: Kailyn Ibrahim on 07-03-2025 Monocytes/100 WBC (Bld) 11.2 % High 0-10 [facility] Neutrophil percentageOrdered By: Kailyn Ibrahim on 07-03-2025 Neutrophils/100 WBC (Bld) 55.9 % 47-70 [facility] Nucleated red blood cell per centageOrdered By: Kailyn Ibrahim on 07-03-2025 Nucleated RBC/100 WBC (Bld) [Ratio] 0 % 0-5 [facility] Platelet countOrdered By: Abbie Ibrahim on 07-03-2025 Platelets (Bld) [#/Vol] 262 10*3/uL 150-450 [facility] Potassium measurement (mass/ volume)Ordered By: Kailyn Ibrahim on 07-03-2025 Potassium (Unsp spec) [Mass/Vol] 4.3 mmol/L 3.3-5.1 [facility] Comment on above: Hemolysis present, R esults could be affected. RBC Auto (Bld) [#/Vol]Ordere d By: Kailyn Ibrahim on 07-03-2025 RBC (Bld) [#/Vol] 5.21 10*6/uL 4.6-6.2 [facility] Screening total cholesterol/ high density lipoprotein (HDL) cholesterol ratioOrdered By: Kailyn Ibrahim on 07-03-2025 Cholesterol.total/Chol esterol in HDL [Mass ratio] 2.65 {ratio} [facility] Serum creatinine measurement (mass/volume)Ordered By: Kailyn Ibrahim on 07-03-2025 Creatinine [Mass/Vol] 0.99 mg/dL 0.70-1.20 [facility] Serum globulin measurementOr dered By: Kailyn Ibrahim on 07-03-2025 Globulin (S) [Mass/Vol] 3.1 g/dL 2.2-4.2 [facility] Serum glucose measurement (m ass/volume)Ordered By: Kailyn Ibrahim on 07-03-2025 Glucose [Mass/Vol] 96 mg/dL 70-99 [facility] Serum or plasma alanine cox otransferase (ALT) measurementOrdered By: Kailyn Ibrahim on 07-03-2025 ALT [Catalytic activity/Vol] 35 U/L <47 [facility] Serum or plasma albumin josselin urement (mass/volume)Ordered By: Kailyn Ibrahim on 07-03-2025 Albumin [Mass/Vol] 3.9 g/dL 3.5-5.0 [facility] Serum or plasma albumin/glob ulin mass ratioOrdered By: Kailyn Ibrahim on 07-03-2025 Albumin/Globulin [Mass ratio] 1.3 {ratio} 0.9-2.4 [facility] Serum or plasma alkaline chiki sphatase measurementOrdered By: Kailyn Ibrahim on 07-03-2025 ALP [Catalytic activity/Vol] 83 U/L 40-129 [facility] Serum or plasma calcium josselin urement (mass/volume)Ordered By: Kailyn Ibrahim on 07-03-2025 Calcium [Mass/Vol] 9.1 mg/dL 7.6-11.0 [facility] Serum or plasma cholesterol in HDL measurement (mass/volume)Ordered By: Kailyn Ibrahim on 07-03-2025 Cholesterol in HDL [Mass/Vol] 59 mg/dL >40 [facility] Comment on above: National Cholesterol Education Program (NCEP) guidelines:<40 mg/dL: Low HDL-cholesterol (major risk factor for CHD)>= 60 mg/dL: High HDL-cholesterol (negative risk factor for CHD)HDL-cholesterol is affected by a number of factors, e.g. smoking, exercise, hormones, sex and age. Serum or plasma cholesterol measurement (mass/volume)Ordered By: Kailyn Ibrahim on 07-03-2025 Cholesterol [Mass/Vol] 157 mg/dL <201 [facility] Comment on above: Cholesterol level, D esirable <200 mg/dLBorderline high cholesterol 200-239 mg/dLHigh cholesterol >=240 mg/dLRecommendations of the NCEP Adult Treatment Panel for the following risk-cutoff thresholds for the [place] population. Serum or plasma urea nitroge n measurement (mass/volume)Ordered By: Kailyn Ibrahim on 07-03-2025 Urea nitrogen [Mass/Vol] 15 mg/dL 4-19 [facility] Sodium levelOrdered By: Kailyn Ibrahim on 07-03-2025 Sodium [Moles/Vol] 140 mmol/L 133-145 [facility] T4 Free Directon 07-03-2025 T4 FREE DIRECT 1.60 ng/dL High 0.76-1.46 [facility] Comment on above: Order Comment: Order Date: 06/03/25Order Info: [id number] - CMPOrder Info: [id number] - LIPIDOrder Info: [id number] - TSHOrder Info: [id number] - T4F Performed By: #### L [id number], L3300.6900, L3400.4700 #### [facility] [address] [place], [place], [id number] T4 freeOrdered By: Kailyn zeng on 07-03-2025 Free T4 [Mass/Vol] 1.60 ng/dL High 0.76-1.46 [facility] TSH DL <= 0.005 mIU/L QnOrde red By: Kailyn Ibrahim on 07-03-2025 TSH Qn 0.006 uIU/mL Low 0.300-4.20 0 [facility] Comment on above: Previous reported re sult: 0.005 uIU/mLEdited by: JOSEPHINE on 07/03/25:0847 AMENDED REPORT 07/03/25 0847 TSH previously reported as: 0.005 L uIU/mL Thyroid Stim Hormone (TSH)on 07-03-2025 TSH 0.006 uIU/mL Low 0.300-4.20 0 [facility] Comment on above: Order Comment: Order Date: 06/03/25Order Info: [id number] - CMPOrder Info: [id number] - LIPIDOrder Info: [id number] - TSHOrder Info: [id number] - T4F Result Comment: AMENDED REPORT 07/03/25 0847 TSH previously reported as: 0.005 L uIU/mL Performed By: #### L [id number], [id number], L3400.4700 #### [facility] [address] [place], [address] Total proteinOrdered By: Darshan Ibrahim on 07-03-2025 Protein [Mass/Vol] 7.0 g/dL 5.9-8.4 [facility] Triglycerides measurementOrd ered By: Kailyn Ibrahim on 07-03-2025 Triglyceride [Mass/Vol] 95 mg/dL <199 [facility] Comment on above: The drugs N-Acetylcy steine and Metamizole may falsely depress this assay. Normal range: <150 mg/dLBorderline High: 150-199 mg/dLHigh: 200-499 mg/dLVery High: >500 mg/dL White blood cell (WBC) count Ordered By: Kailyn Ibrahim on 07-03-2025 WBC (Bld) [#/Vol] 7.2 10*3/uL 4.4-11.0 [facility] Absolute lymphocyte countOrd ered By: Kailyn Ibrahim on 05-29-2025 Lymphocytes Auto (Unsp spec) [#/Vol] 2.20 10*3/uL 0.83-4.51 [facility] Absolute neutrophil countOrd ered By: Kailyn Ibrahim on 05-29-2025 Neutrophils (Bld) [#/Vol] 2.6 10*3/uL 2.0-7.7 [facility] Anion gap in Serum or Plasma Ordered By: Kailyn Ibrahim on 05-29-2025 Anion gap [Moles/Vol] 11 mmol/L 5-15 [facility] Automated lymphocyte count a s percentage of total leukocytesOrdered By: Kailyn Ibrahim on 05-29-2025 Lymphocytes/100 WBC Auto (Unsp spec) 39.2 % - [facility] BUN/creatinine ratioOrdered By: Kailyn Ibrahim on 05-29-2025 Urea nitrogen/Creatinine [Mass ratio] 16.0 mg/mg 10- [facility] Basophil percentageOrdered B y: Kailyn Ibrahim on 05-29-2025 Basophils/100 WBC (Bld) 0.7 % 0-1 [facility] Bilirubin Test strip Ql (U)O rdered By: Kailyn Ibrahim on 05-29-2025 Bilirubin Ql (U) Negative Negative [facility] Bilirubin, totalOrdered By: Kailyn Ibrahim on 05-29-2025 Bilirubin [Mass/Vol] 0.92 mg/dL 0.00-1.30 [facility] CBC W/Diff, Automatedon 05-07 Absolute Lymph 2.20 X10 3/uL Normal 0.83-4.51 [facility] Comment on above: Order Comment: Order Date: 12/04/24Order Info: [id number] - CBCD Performed By: #### L [id number], L3300.6900, L3400.4700 #### [facility] [address] [place], [address] Absolute Neut 2.6 X10 3/uL Normal 2.0-7.7 [facility] Comment on above: Order Comment: Order Date: 12/04/24Order Info: [id number] - CBCD Performed By: #### L [id number], [id number], L3400.4700 #### [facility] [address] [place], [address] Basophils/100 WBC (Bld) 0.7 % Normal 0-1 [facility] Comment on above: Order Comment: Order Date: 12/04/24Order Info: [id number] - CBCD Performed By: #### L [id number], L3300.6900, L3400.4700 #### [facility] [address] [place], [address] Eosinophils/100 WBC (Bld) 3.6 % Normal 0-5 [facility] Comment on above: Order Comment: Order Date: 12/04/24Order Info: [id number] - CBCD Performed By: #### L [id number], L3300.6900, L3400.4700 #### [facility] [address] [place], [address] Erythrocyte distribution width (RBC) [Ratio] 12.1 % Normal 11.6-14.6 [facility] Comment on above: Order Comment: Order Date: 12/04/24Order Info: [id number] - CBCD Performed By: #### L [id number], [id number], L3400.4700 #### [facility] [address] [place], [address] Hematocrit (Bld) [Volume fraction] 44.8 % Normal 40-54 [facility] Comment on above: Order Comment: Order Date: 12/04/24Order Info: [id number] - CBCD Performed By: #### L [id number], [id number], L3400.4700 #### [facility] [address] [place], [address] Hemoglobin (Bld) [Mass/Vol] 15.3 g/dL Normal 13.0-16.5 [facility] Comment on above: Order Comment: Order Date: 12/04/24Order Info: [id number] - CBCD Performed By: #### L [id number], L3300.6900, L3400.4700 #### [facility] [address] [place], [address] IG% 0.200 Normal 0.0-0.9 [facility] Comment on above: Order Comment: Order Date: 12/04/24Order Info: [id number] - CBCD Result Comment: IG% - Immature Granulocytes (promyelocytes, myelocytes and metamyelocytes) > 1% indicates that a LEFT SHIFT is Present. Performed By: #### L [id number], L3300.6900, L3400.4700 #### [facility] [address] [place], [address] Lymphocytes/100 WBC (Bld) 39.2 % Normal 19-41 [facility] Comment on above: Order Comment: Order Date: 12/04/24Order Info: 018- - CBCD Performed By: #### L [id number], L3300.6900, L3400.4700 #### [facility] [address] [place], [address] MCH (RBC) [Entitic mass] 29.8 pg Normal 27.0-32.0 [facility] Comment on above: Order Comment: Order Date: 12/04/24Order Info: 018- - CBCD Performed By: #### L [id number], [id number], L3400.4700 #### [facility] [address] [place], [address] MCHC (RBC) [Mass/Vol] 34.2 g/dL Normal 32-36 [facility] Comment on above: Order Comment: Order Date: 12/04/24Order Info: 018- - CBCD Performed By: #### L [id number], [id number], L3400.4700 #### [facility] [address] [place], [address] MCV (RBC) [Entitic vol] 87.3 fL Normal 80-94 [facility] Comment on above: Order Comment: Order Date: 12/04/24Order Info: 018- - CBCD Performed By: #### L [id number], [id number], L3400.4700 #### [facility] [address] [place], [address] Monocytes/100 WBC (Bld) 10.0 % Normal 0-10 [facility] Comment on above: Order Comment: Order Date: 12/04/24Order Info: [id number] - CBCD Performed By: #### L [id number], [id number], L3400.4700 #### [facility] [address] [place], [address] Neutrophils/100 WBC (Bld) 46.3 % Low 47-70 [facility] Comment on above: Order Comment: Order Date: 12/04/24Order Info: [id number] - CBCD Performed By: #### L [id number], L3300.6900, L3400.4700 #### [facility] [address] [place], [address] Nucleated RBC (Bld) [#/Vol] 0 10*3/uL Normal 0-5 [facility] Comment on above: Order Comment: Order Date: 12/04/24Order Info: 018- - CBCD Performed By: #### L [id number], L3300.6900, L3400.4700 #### [facility] [address] [place], [address] Platelet mean volume (Bld) [Entitic vol] 9.9 fL Normal 6.2-12.0 [facility] Comment on above: Order Comment: Order Date: 12/04/24Order Info: [id number] - CBCD Performed By: #### L [id number], L3300.6900, L3400.4700 #### [facility] [address] [place], [address] Platelets (Bld) [#/Vol] 232 10*3/uL Normal 150-450 [facility] Comment on above: Order Comment: Order Date: 12/04/24Order Info: [id number] - CBCD Performed By: #### L [id number], L3300.6900, L3400.4700 #### [facility] [address] [place], [address] RBC (Bld) [#/Vol] 5.13 10*6/uL Normal 4.6-6.2 [facility] Comment on above: Order Comment: Order Date: 12/04/24Order Info: [id number] - CBCD Performed By: #### L [id number], [id number], L3400.4700 #### [facility] [address] [place], [address] RDW SD 39.2 fl Normal 35.1-43.9 [facility] Comment on above: Order Comment: Order Date: 12/04/24Order Info: 018- - CBCD Performed By: #### L [id number], [id number], L3400.4700 #### [facility] [address] [place], [address] WBC (Bld) [#/Vol] 5.6 10*3/uL Normal 4.4-11.0 [facility] Comment on above: Order Comment: Order Date: 12/04/24Order Info: 018-1 - CBCD Performed By: #### L [id number], [id number], L3400.4700 #### [facility] [address] [place], [address] Calculated very low density lipoprotein (VLDL) cholesterol measurementOrdered By: Kailyn Ibrahim on 05-29-2025 Calculated very low density lipoprotein (VLDL) cholesterol measurement 22 mg/dL 5-40 [facility] Carbon dioxide, total [Moles /volume] in Central venous bloodOrdered By: Kailyn Ibrahim on 05-29-2025 CO2 [Moles/Vol] 23.2 mmol/L 21.0-32.0 [facility] Chloride assayOrdered By: Abbie Ibrahim on 05-29-2025 Chloride [Moles/Vol] 106 mmol/L 98-108 [facility] Comprehensive Metabolic Prof ilon 05-29-2025 Albumin [Mass/Vol] 3.6 g/dL Normal 3.5-5.0 [facility] Comment on above: Order Comment: Order Date: 12/04/24Order Info: [id number] - CMPOrder Info: [id number] - LIPIDOrder Info: 3 - TSHOrder Info: 7 - T4F Performed By: #### L [id number], [id number], L3400.4700 #### [facility] [address] [place], [address] Albumin/Globulin [Mass ratio] 1.1 {ratio} Normal 0.9-2.4 [facility] Comment on above: Order Comment: Order Date: 12/04/24Order Info: [id number] - CMPOrder Info: [id number] - LIPIDOrder Info: 3 - TSHOrder Info: 7 - T4F Performed By: #### L [id number], [id number], L3400.4700 #### [facility] [address] [place], [address] ALK PHOS 72 U/L Normal 40-129 [facility] Comment on above: Order Comment: Order Date: 12/04/24Order Info: 07-1 - CMPOrder Info: [id number] - LIPIDOrder Info: 3 - TSHOrder Info: [id number] - T4F Performed By: #### L [id number], [id number], L3400.4700 #### [facility] [address] [place], [address] ALT [Catalytic activity/Vol] 21 U/L Normal <=46 [facility] Comment on above: Order Comment: Order Date: 12/04/24Order Info: [id number] - CMPOrder Info: [id number] - LIPIDOrder Info: 63 - TSHOrder Info: [id number] - T4F Performed By: #### L [id number], [id number], L3400.4700 #### [facility] [address] [place], [place], [address] AST [Catalytic activity/Vol] 21 U/L Normal <=37 [facility] Comment on above: Order Comment: Order Date: 12/04/24Order Info: [id number] - CMPOrder Info: [id number] - LIPIDOrder Info: 6-3 - TSHOrder Info: [id number] - T4F Performed By: #### L [id number], L3300.6900, L3400.4700 #### [facility] [address] [place], [address] Bilirubin [Mass/Vol] 0.92 mg/dL Normal 0.00-1.30 [facility] Comment on above: Order Comment: Order Date: 12/04/24Order Info: 07-1 - CMPOrder Info: [id number] - LIPIDOrder Info: 63 - TSHOrder Info: [id number] - T4F Performed By: #### L [id number], L3300.6900, L3400.4700 #### [facility] [address] [place], [address] BUN/CRE 16.0 RATIO Normal 10-20 [facility] Comment on above: Order Comment: Order Date: 12/04/24Order Info: [id number] - CMPOrder Info: [id number] - LIPIDOrder Info: 63 - TSHOrder Info: [id number] - T4F Performed By: #### L 3300.6820, L3300.6900, L3400.4700 #### [facility] [address] [place], [address] Calcium [Mass/Vol] 9.1 mg/dL Normal 7.6-11.0 [facility] Comment on above: Order Comment: Order Date: 12/04/24Order Info: [id number] - CMPOrder Info: [id number] - LIPIDOrder Info: [id number] - TSHOrder Info: [id number] - T4F Performed By: #### L [id number], L3300.6900, L3400.4700 #### [facility] [address] [place], [address] Chloride [Moles/Vol] 106 mmol/L Normal 98-108 [facility] Comment on above: Order Comment: Order Date: 12/04/24Order Info: [id number] - CMPOrder Info: [id number] - LIPIDOrder Info: [id number] - TSHOrder Info: [id number] - T4F Performed By: #### L 3300.6820, L3300.6900, L3400.4700 #### [facility] [address] [place], [address] CO2 [Moles/Vol] 23.2 mmol/L Normal 21.0-32.0 [facility] Comment on above: Order Comment: Order Date: 12/04/24Order Info: [id number] - CMPOrder Info: [id number] - LIPIDOrder Info: [id number] - TSHOrder Info: [id number] - T4F Performed By: #### L 3300.6820, L3300.6900, L3400.4700 #### [facility] [address] [place], [address] Creatinine [Mass/Vol] 0.97 mg/dL Normal 0.70-1.20 [facility] Comment on above: Order Comment: Order Date: 12/04/24Order Info: [id number] - CMPOrder Info: [id number] - LIPIDOrder Info: [id number] - TSHOrder Info: [id number] - T4F Performed By: #### L 3300.6820, L3300.6900, L3400.4700 #### [facility] [address] [place], [address] GAP 11 Normal 5-15 [facility] Comment on above: Order Comment: Order Date: 12/04/24Order Info: [id number] - CMPOrder Info: [id number] - LIPIDOrder Info: [id number] - TSHOrder Info: [id number] - T4F Performed By: #### L [id number], [id number], L3400.4700 #### [facility] [address] [place], [address] GFR/1.73 sq M.predicted among non-blacks MDRD (S/P/Bld) [Vol rate/Area] 92 mL/min/{1.73_m2} Normal >60 [facility] Comment on above: Order Comment: Order Date: 12/04/24Order Info: [id number] - CMPOrder Info: [id number] - LIPIDOrder Info: [id number] - TSHOrder Info: [id number] - T4F Result Comment: mL/m in/1.73m2 CKD-EPI Creatinine Equation (2020) Performed By: #### L 3300.6820, L3300.6900, L3400.4700 #### [facility] [address] [place], [address] Globulin (S) [Mass/Vol] 3.4 g/dL Normal 2.2-4.2 [facility] Comment on above: Order Comment: Order Date: 12/04/24Order Info: 86-1 - CMPOrder Info: [id number] - LIPIDOrder Info: 63 - TSHOrder Info: [id number] - T4F Performed By: #### L 3300.6820, L3300.6900, L3400.4700 #### [facility] [address] [place], [address] Glucose [Mass/Vol] 113 mg/dL High 70-99 [facility] Comment on above: Order Comment: Order Date: 12/04/24Order Info: [id number] - CMPOrder Info: [id number] - LIPIDOrder Info: [id number] - TSHOrder Info: [id number] - T4F Performed By: #### L 3300.6820, L3300.6900, L3400.4700 #### [facility] [address] [place], [address] Potassium [Moles/Vol] 3.6 mmol/L Normal 3.3-5.1 [facility] Comment on above: Order Comment: Order Date: 12/04/24Order Info: [id number] - CMPOrder Info: [id number] - LIPIDOrder Info: [id number] - TSHOrder Info: [id number] - T4F Performed By: #### L 3300.6820, L3300.6900, L3400.4700 #### [facility] [address] [place], [address] Sodium [Moles/Vol] 140 mmol/L Normal 133-145 [facility] Comment on above: Order Comment: Order Date: 12/04/24Order Info: [id number] - CMPOrder Info: [id number] - LIPIDOrder Info: 6-3 - TSHOrder Info: [id number] - T4F Performed By: #### L 3300.6820, L3300.6900, L3400.4700 #### [facility] [address] [place], [address] T PROT 7.0 g/dL Normal 5.9-8.4 [facility] Comment on above: Order Comment: Order Date: 12/04/24Order Info: [id number] - CMPOrder Info: [id number] - LIPIDOrder Info: [id number] - TSHOrder Info: [id number] - T4F Performed By: #### L [id number], L3300.6900, L3400.4700 #### [facility] [address] [place], [address] Urea nitrogen [Mass/Vol] 16 mg/dL Normal 4-19 [facility] Comment on above: Order Comment: Order Date: 12/04/24Order Info: [id number] - CMPOrder Info: [id number] - LIPIDOrder Info: [id number] - TSHOrder Info: [id number] - T4F Performed By: #### L 3300.6820, L3300.6900, L3400.4700 #### [facility] [address] [place], [address] Eosinophil percentageOrdered By: Kailyn Ibrahim on 05-29-2025 Eosinophils/100 WBC (Bld) 3.6 % 0-5 [facility] Erythrocyte distribution wid th ratioOrdered By: Kailyn Ibrahim on 05-29-2025 Erythrocyte distribution width (RBC) [Ratio] 12.1 % 11.6-14.6 [facility] Erythrocyte distribution wid th standard deviationOrdered By: Kailyn Ibrahim on 05-29-2025 Erythrocyte distribution width (RBC) [Ratio] 39.2 fl 35.1-43.9 [facility] Glomerular filtration rate ( GFR) estimation/1.73 sq m using serum, plasma, or whole bOrdered By: Kailyn Ibrahim on 05-29-2025 GFR/1.73 sq M.predicted among non-blacks MDRD (S/P/Bld) [Vol rate/Area] 92 mL/min/{1.73_m2} >60 [facility] Comment on above: mL/min/1.73m2 CKD-EP I Creatinine Equation (2020) Hematocrit Auto (Bld) [Volum e fraction]Ordered By: Kailyn Ibrahim on 05-29-2025 Hematocrit (Bld) [Volume fraction] 44.8 % 40-54 [facility] Hemoglobin measurementOrdere d By: Kailyn Ibrahmi on 05-29-2025 Hemoglobin (Bld) [Mass/Vol] 15.3 g/dL 13.0-16.5 [facility] Immature granulocytes/100 WB C Auto (Bld)Ordered By: Kailyn Ibrahim on 05-29-2025 Immature granulocytes/100 WBC (Bld) 0.200 % 0.0-0.9 [facility] Comment on above: IG% - Immature Granu locytes (promyelocytes, myelocytes and metamyelocytes) > 1% indicates that a LEFT SHIFT is Present. Ketones Test strip Ql (U)Ord ered By: Kailyn Ibrahim on 05-29-2025 Ketones Ql (U) Negative Negative [facility] LDL calc ser/plasOrdered By: Kailyn Ibrahim on 05-29-2025 Cholesterol in LDL [Mass/Vol] 56 mg/dL [facility] Comment on above: Wsfnyjihwi=673-936 m g/dL & Higher Dunh=956 mg/dL or greater Laboratory - Chemistry and C hemistry - challengeOrdered By: Kailyn Ibrahim on 05-29-2025 AST [Catalytic activity/Vol] 21 U/L <38 [facility] Lipid Profileon 05-29-2025 CHOL:HDL 2.72 Normal [facility] Comment on above: Order Comment: Order Date: 12/04/24Order Info: [id number] - CMPOrder Info: [id number] - LIPIDOrder Info: [id number] - TSHOrder Info: 7 - T4F Performed By: #### L [id number], L3300.6900, L3400.4700 #### [facility] Laboratory [address] [place], [address] Cholesterol [Mass/Vol] 123 mg/dL Normal <=200 [facility] Comment on above: Order Comment: Order Date: 12/04/24Order Info: [id number] - CMPOrder Info: [id number] - LIPIDOrder Info: 3 - TSHOrder Info: [id number] - T4F Result Comment: Chol esterol level, Desirable <200 mg/dL Borderline high cholesterol 200-239 mg/dL High cholesterol >=240 mg/dL Recommendations of the NCEP Adult Treatment Panel for the following risk-cutoff thresholds for the [place] population. Performed By: #### L [id number], L3300.6900, L3400.4700 #### [facility] Laboratory [address] [place], [address] Cholesterol in HDL [Mass/Vol] 45 mg/dL Normal [facility] Comment on above: Order Comment: Order Date: 12/04/24Order Info: [id number] - CMPOrder Info: [id number] - LIPIDOrder Info: [id number] - TSHOrder Info: [id number] - T4F Result Comment: Nisha onal Cholesterol Education Program (NCEP) guidelines: <40 mg/dL: Low HDL-cholesterol (major risk factor for CHD) >= 60 mg/dL: High HDL-cholesterol (negative risk factor for CHD) HDL-cholesterol is affected by a number of factors, e.g. smoking, exercise, hormones, sex and age. Performed By: #### L [id number], L3300.6900, L3400.4700 #### [facility] Laboratory [address] [place], [address] Cholesterol in LDL [Mass/Vol] 56 mg/dL Normal [facility] Comment on above: Order Comment: Order Date: 12/04/24Order Info: [id number] - CMPOrder Info: [id number] - LIPIDOrder Info: [id number] - TSHOrder Info: [id number] - T4F Result Comment: Bord kcdyvb=487-652 mg/dL Higher Ztli=209 mg/dL or greater Performed By: #### L [id number], L3300.6900, L3400.4700 #### [facility] Laboratory [address] [place], [address] Cholesterol in VLDL [Mass/Vol] 22 mg/dL Normal 5-40 [facility] Comment on above: Order Comment: Order Date: 12/04/24Order Info: [id number] - CMPOrder Info: [id number] - LIPIDOrder Info: [id number] - TSHOrder Info: [id number] - T4F Performed By: #### L [id number], L3300.6900, L3400.4700 #### [facility] Laboratory [address] [place], [address] Triglyceride [Mass/Vol] 111 mg/dL Normal [facility] Comment on above: Order Comment: Order Date: 12/04/24Order Info: [id number] - CMPOrder Info: [id number] - LIPIDOrder Info: [id number] - TSHOrder Info: [id number] - T4F Result Comment: The drugs N-Acetylcysteine and Metamizole may falsely depress this assay. Normal range: <150 mg/dL Borderline High: 150-199 mg/dL High: 200-499 mg/dL Very High: >500 mg/dL Performed By: #### L [id number], L3300.6900, L3400.4700 #### [facility] Laboratory [address] [place], [address] MCV (mean corpuscular volume ) determinationOrdered By: Kailyn Ibrahim on 05-29-2025 MCV (RBC) [Entitic vol] 87.3 fL 80-94 [facility] Mean corpuscular hemoglobin (MCH) determinationOrdered By: Kailyn Ibrahim on 05-29-2025 MCH (RBC) [Entitic mass] 29.8 pg 27.0-32.0 [facility] Mean corpuscular hemoglobin concentration (MCHC) determinationOrdered By: Kailyn Ibrahim on 05-29-2025 MCHC (RBC) [Mass/Vol] 34.2 g/dL 32-36 [facility] Mean platelet volume determi nationOrdered By: Kailyn Ibrahim on 05-29-2025 Platelet mean volume (Bld) [Entitic vol] 9.9 fL 6.2-12.0 [facility] Microscopic analysis of urin e for red blood cells (RBC)Ordered By: Kailyn Ibrahim on 05-29-2025 Microscopic analysis of urine for red blood cells (RBC) 0 SEEN /hpf 0-5 [facility] Monocyte percentageOrdered B y: Kailyn Ibrahim on 05-29-2025 Monocytes/100 WBC (Bld) 10.0 % 0-10 [facility] Mucus LM Ql (Urine sed)Order ed By: Kailyn Ibrahim on 05-29-2025 Mucus Ql (Urine sed) 1+ /hpf [facility] Neutrophil percentageOrdered By: Kailyn Ibrahim on 05-29-2025 Neutrophils/100 WBC (Bld) 46.3 % Low 47-70 [facility] Nitrite Test strip Ql (U)Ord ered By: Kailyn Ibrahim on 05-29-2025 Nitrite Ql (U) Negative Negative [facility] Nucleated red blood cell per centageOrdered By: Kailyn Ibrahim on 05-29-2025 Nucleated RBC/100 WBC (Bld) [Ratio] 0 % 0-5 [facility] Platelet countOrdered By: Abbie Ibrahim on 05-29-2025 Platelets (Bld) [#/Vol] 232 10*3/uL 150-450 [facility] Potassium measurement (mass/ volume)Ordered By: Kailyn Ibrahim on 05-29-2025 Potassium (Unsp spec) [Mass/Vol] 3.6 mmol/L 3.3-5.1 [facility] Protein Test strip Ql (U)Ord ered By: Kailyn Ibrahim on 05-29-2025 Protein Ql (U) 15 mg/dl High Negative [facility] RBC Auto (Bld) [#/Vol]Ordere d By: Kailyn Ibrahim on 05-29-2025 RBC (Bld) [#/Vol] 5.13 10*6/uL 4.6-6.2 [facility] Screening total cholesterol/ high density lipoprotein (HDL) cholesterol ratioOrdered By: Kailyn Ibrahim on 05-29-2025 Cholesterol.total/Chol esterol in HDL [Mass ratio] 2.72 {ratio} [facility] Serum creatinine measurement (mass/volume)Ordered By: Kailyn Ibrahim on 05-29-2025 Creatinine [Mass/Vol] 0.97 mg/dL 0.70-1.20 [facility] Serum globulin measurementOr dered By: Kailyn Ibrahim on 05-29-2025 Globulin (S) [Mass/Vol] 3.4 g/dL 2.2-4.2 [facility] Serum glucose measurement (m ass/volume)Ordered By: Kailyn Ibrahim on 05-29-2025 Glucose [Mass/Vol] 113 mg/dL High 70-99 [facility] Serum or plasma alanine cox otransferase (ALT) measurementOrdered By: Kailyn Ibrahim on 05-29-2025 ALT [Catalytic activity/Vol] 21 U/L <47 [facility] Serum or plasma albumin josselin urement (mass/volume)Ordered By: Kailyn Ibrahim on 05-29-2025 Albumin [Mass/Vol] 3.6 g/dL 3.5-5.0 [facility] Serum or plasma albumin/glob ulin mass ratioOrdered By: Kailyn Ibrahim on 05-29-2025 Albumin/Globulin [Mass ratio] 1.1 {ratio} 0.9-2.4 [facility] Serum or plasma alkaline chiki sphatase measurementOrdered By: Kailyn Ibrahim on 05-29-2025 ALP [Catalytic activity/Vol] 72 U/L 40-129 [facility] Serum or plasma calcium josselin urement (mass/volume)Ordered By: Kailyn Ibrahim on 05-29-2025 Calcium [Mass/Vol] 9.1 mg/dL 7.6-11.0 [facility] Serum or plasma cholesterol in HDL measurement (mass/volume)Ordered By: Kailyn Ibrahim on 05-29-2025 Cholesterol in HDL [Mass/Vol] 45 mg/dL >40 [facility] Comment on above: National Cholesterol Education Program (NCEP) guidelines:<40 mg/dL: Low HDL-cholesterol (major risk factor for CHD)>= 60 mg/dL: High HDL-cholesterol (negative risk factor for CHD)HDL-cholesterol is affected by a number of factors, e.g. smoking, exercise, hormones, sex and age. Serum or plasma cholesterol measurement (mass/volume)Ordered By: Kailyn Ibrahim on 05-29-2025 Cholesterol [Mass/Vol] 123 mg/dL <201 [facility] Comment on above: Cholesterol level, D esirable <200 mg/dLBorderline high cholesterol 200-239 mg/dLHigh cholesterol >=240 mg/dLRecommendations of the NCEP Adult Treatment Panel for the following risk-cutoff thresholds for the [place] population. Serum or plasma urea nitroge n measurement (mass/volume)Ordered By: Kailyn Ibrahim on 05-29-2025 Urea nitrogen [Mass/Vol] 16 mg/dL 4-19 [facility] Sodium levelOrdered By: Kailyn Ibrahim on 05-29-2025 Sodium [Moles/Vol] 140 mmol/L 133-145 [facility] Squamous epithelial cells de tection in urine sediment by light microscopyOrdered By: Kailyn Ibrahim on 05-29-2025 Epithelial cells.squamous LM Ql (Urine sed) 0-5 SEEN /hpf 0-5 [facility] T4 Free Directon 05-29-2025 T4 FREE DIRECT 2.40 ng/dL High 0.76-1.46 [facility] Comment on above: Order Comment: Order Date: 12/04/24Order Info: [id number] - CMPOrder Info: [id number] - LIPIDOrder Info: [id number] - TSHOrder Info: [id number] - T4F Performed By: #### L [id number], L3300.6900, L3400.4700 #### [facility] Laboratory [address] [place], [place], [id number] T4 freeOrdered By: Kailyn zeng on 05-29-2025 Free T4 [Mass/Vol] 2.40 ng/dL High 0.76-1.46 [facility] TSH DL <= 0.005 mIU/L QnOrde red By: Kailyn Ibrahim on 05-29-2025 TSH Qn 0.009 uIU/mL Low 0.300-4.20 0 [facility] Thyroid Stim Hormone (TSH)on 05-29-2025 TSH 0.009 uIU/mL Low 0.300-4.20 0 [facility] Comment on above: Order Comment: Order Date: 12/04/24Order Info: [id number] - CMPOrder Info: [id number] - LIPIDOrder Info: [id number] - TSHOrder Info: [id number] - T4F Performed By: #### L 4070.8720, L3300.6900, L3400.4700 #### [facility] Laboratory [address] [place], [place], [id number] Total proteinOrdered By: Darshan Ibrahim on 05-29-2025 Protein [Mass/Vol] 7.0 g/dL 5.9-8.4 [facility] Triglycerides measurementOrd ered By: Kailyn Ibrahim on 05-29-2025 Triglyceride [Mass/Vol] 111 mg/dL <199 [facility] Comment on above: The drugs N-Acetylcy steine and Metamizole may falsely depress this assay. Normal range: <150 mg/dLBorderline High: 150-199 mg/dLHigh: 200-499 mg/dLVery High: >500 mg/dL Urinalysis, Completeon 05-29 EPI,SQUAMOUS 0-5 SEEN Normal 0-5 [facility] Comment on above: Order Comment: Urine , Random Performed By: #### L [id number], L3300.6900, L3400.4700 #### [facility] Laboratory [address] [place], [place], [id number] Mucus Ql (Urine sed) 1+ /hpf Normal [facility] Comment on above: Order Comment: Urine , Random Performed By: #### L [id number], L3300.6900, L3400.4700 #### [facility] Laboratory [address] [place], [address] WBC 0-5 SEEN Normal 0-5 [facility] Comment on above: Order Comment: Urine , Random Performed By: #### L [id number], L3300.6900, L3400.4700 #### [facility] Laboratory [address] [place], [address] BACTERIA 0 SEEN Normal None Seen [facility] Comment on above: Order Comment: Urine , Random Performed By: #### L [id number], L3300.6900, L3400.4700 #### [facility] Laboratory [address] [place], [address] RBC 0 SEEN Normal 0-5 [facility] Comment on above: Order Comment: Urine , Random Performed By: #### L [id number], [id number], L3400.4700 #### [facility] Laboratory [address] [place], [address] Urine clarityOrdered By: Darshan Ibrahim on 05-29-2025 Clarity (U) Clear Clear [facility] Urine color determinationOrd ered By: Kailyn Ibrahim on 05-29-2025 Color (U) Yellow Yellow [facility] Urine glucose detectionOrder ed By: Kailyn Ibrahim on 05-29-2025 Glucose Ql (U) Normal mg/dl Normal [facility] Urine leukocyte esterase det ection by dipstickOrdered By: Kailyn Ibrahim on 05-29-2025 Leukocyte esterase Test strip Ql (U) 25 /ul High Negative [facility] Urine pHOrdered By: Kailyn watkins on 05-29-2025 pH (U) 5.0 [pH] 5.0 - 8.0 [facility] Urine sediment bacteria coun t by microscopy (number/high power field)Ordered By: Kailyn Ibrahim on 05-29-2025 Bacteria LM.HPF (Urine sed) [#/Area] 0 /[HPF] None Seen [facility] Urine specific gravity measu rementOrdered By: Kailyn Ibrahim on 05-29-2025 Specific gravity (U) [Rel density] 1.020 1.002-1.03 0 [facility] Urine urobilinogen measureme ntOrdered By: Kailyn Ibrahim on 05-29-2025 Urobilinogen Ql (U) Normal mg/dl Normal [facility] White blood cell (WBC) count Ordered By: Kailyn Ibrahim on 05-29-2025 WBC (Bld) [#/Vol] 5.6 10*3/uL 4.4-11.0 [facility] White blood cell countOrdere d By: Kailyn Ibrahim on 05-29-2025 White blood cell count 0-5 SEEN /hpf 0-5 [facility] CBC W/Diff, Automatedon 11-07 Absolute Lymph 1.87 X10 3/uL Normal 0.83-4.51 [facility] Comment on above: Order Comment: Order Date: 06/05/24 Order Info: [id number] - CBCD Performed By: #### L 501.9910, L506.0400, L500.4050, L501.9520, L100.0100, L500.4100 #### [facility] Laboratory [address] [place], [address] Absolute Neut 3.9 X10 3/uL Normal 2.0-7.7 [facility] Comment on above: Order Comment: Order Date: 06/05/24 Order Info: [id number] - CBCD Performed By: #### L 501.9910, L506.0400, L500.4050, L501.9520, L100.0100, L500.4100 #### [facility] Laboratory [address] [place], [address] Basophils/100 WBC (Bld) 0.8 % Normal 0-1 [facility] Comment on above: Order Comment: Order Date: 06/05/24 Order Info: [id number] - CBCD Performed By: #### L 501.9910, L506.0400, L500.4050, L501.9520, L100.0100, L500.4100 #### [facility] Laboratory [address] [place], [address] Eosinophils/100 WBC (Bld) 1.7 % Normal 0-5 [facility] Comment on above: Order Comment: Order Date: 06/05/24 Order Info: [id number] - CBCD Performed By: #### L 501.9910, L506.0400, L500.4050, L501.9520, L100.0100, L500.4100 #### [facility] Laboratory [address] [place], [address] Erythrocyte distribution width (RBC) [Ratio] 12.9 % Normal 11.6-14.6 [facility] Comment on above: Order Comment: Order Date: 06/05/24 Order Info: [id number] - CBCD Performed By: #### L 501.9910, L506.0400, L500.4050, L501.9520, L100.0100, L500.4100 #### [facility] [address] [place], [address] Hematocrit (Bld) [Volume fraction] 45.9 % Normal 40-54 [facility] Comment on above: Order Comment: Order Date: 06/05/24 Order Info: [id number] - CBCD Performed By: #### L 501.9910, L506.0400, L500.4050, L501.9520, L100.0100, L500.4100 #### [facility] Laboratory [address] [place], [address] Hemoglobin (Bld) [Mass/Vol] 15.9 g/dL Normal 13.0-16.5 [facility] Comment on above: Order Comment: Order Date: 06/05/24 Order Info: [id number] - CBCD Performed By: #### L 501.9910, L506.0400, L500.4050, L501.9520, L100.0100, L500.4100 #### [facility] Laboratory [address] [place], [address] IG% 0.500 Normal 0.0-0.9 [facility] Comment on above: Order Comment: Order Date: 06/05/24 Order Info: [id number] - CBCD Result Comment: IG% - Immature Granulocytes (promyelocytes, myelocytes and metamyelocytes) > 1% indicates that a LEFT SHIFT is Present. Performed By: #### L 501.9910, L506.0400, L500.4050, L501.9520, L100.0100, L500.4100 #### [facility] [address] [place], [address] Lymphocytes/100 WBC (Bld) 28.2 % Normal 19-41 [facility] Comment on above: Order Comment: Order Date: 06/05/24 Order Info: [id number] - CBCD Performed By: #### L 501.9910, L506.0400, L500.4050, L501.9520, L100.0100, L500.4100 #### [facility] [address] [place], [address] MCH (RBC) [Entitic mass] 30.8 pg Normal 27.0-32.0 [facility] Comment on above: Order Comment: Order Date: 06/05/24 Order Info: [id number] - CBCD Performed By: #### L 501.9910, L506.0400, L500.4050, L501.9520, L100.0100, L500.4100 #### [facility] [address] [place], [address] MCHC (RBC) [Mass/Vol] 34.6 g/dL Normal 32-36 [facility] Comment on above: Order Comment: Order Date: 06/05/24 Order Info: [id number] - CBCD Performed By: #### L 501.9910, L506.0400, L500.4050, L501.9520, L100.0100, L500.4100 #### [facility] [address] [place], [address] MCV (RBC) [Entitic vol] 89.0 fL Normal 80-94 [facility] Comment on above: Order Comment: Order Date: 06/05/24 Order Info: [id number] - CBCD Performed By: #### L 501.9910, L506.0400, L500.4050, L501.9520, L100.0100, L500.4100 #### [facility] [address] [place], [address] Monocytes/100 WBC (Bld) 10.0 % Normal 0-10 [facility] Comment on above: Order Comment: Order Date: 06/05/24 Order Info: 0184- - CBCD Performed By: #### L 501.9910, L506.0400, L500.4050, L501.9520, L100.0100, L500.4100 #### [facility] [address] [place], [address] Neutrophils/100 WBC (Bld) 58.8 % Normal 47-70 [facility] Comment on above: Order Comment: Order Date: 06/05/24 Order Info: 0184- - CBCD Performed By: #### L 501.9910, L506.0400, L500.4050, L501.9520, L100.0100, L500.4100 #### [facility] [address] [place], [address] Nucleated RBC (Bld) [#/Vol] 0 10*3/uL Normal 0-5 [facility] Comment on above: Order Comment: Order Date: 06/05/24 Order Info: [id number] - CBCD Performed By: #### L 501.9910, L506.0400, L500.4050, L501.9520, L100.0100, L500.4100 #### [facility] [address] [place], [place], [id number] Platelet mean volume (Bld) [Entitic vol] 9.7 fL Normal 6.2-12.0 [facility] Comment on above: Order Comment: Order Date: 06/05/24 Order Info: 018- - CBCD Performed By: #### L 501.9910, L506.0400, L500.4050, L501.9520, L100.0100, L500.4100 #### [facility] [address] [place], [place], [id number] Platelets (Bld) [#/Vol] 237 10*3/uL Normal 150-450 [facility] Comment on above: Order Comment: Order Date: 06/05/24 Order Info: 018- - CBCD Performed By: #### L 501.9910, L506.0400, L500.4050, L501.9520, L100.0100, L500.4100 #### [facility] [address] [place], [place], [id number] RBC (Bld) [#/Vol] 5.16 10*6/uL Normal 4.6-6.2 [facility] Comment on above: Order Comment: Order Date: 06/05/24 Order Info: 018- - CBCD Performed By: #### L 501.9910, L506.0400, L500.4050, L501.9520, L100.0100, L500.4100 #### [facility] [address] [place], [address] RDW SD 42.3 fl Normal 35.1-43.9 [facility] Comment on above: Order Comment: Order Date: 06/05/24 Order Info: [id number]- - CBCD Performed By: #### L 501.9910, L506.0400, L500.4050, L501.9520, L100.0100, L500.4100 #### [facility] [address] [place], [address] WBC (Bld) [#/Vol] 6.6 10*3/uL Normal 4.4-11.0 [facility] Comment on above: Order Comment: Order Date: 06/05/24 Order Info: [id number] - CBCD Performed By: #### L 501.9910, L506.0400, L500.4050, L501.9520, L100.0100, L500.4100 #### [facility] [address] [place], [address] Comprehensive Metabolic Prof [facility] 11-28-2024 Albumin [Mass/Vol] 3.6 g/dL Normal 3.2-5.0 [facility] Comment on above: Order Comment: Order Date: 06/05/24 Order Info: [id number] - CMP Order Info: [id number] - LIPID Order Info: 3 - TSH Order Info: 1 - PSA Order Info: 7 - T4F Performed By: #### L 501.9910, L506.0400, L500.4050, L501.9520, L100.0100, L500.4100 #### [facility] [address] [place], [address] Albumin/Globulin [Mass ratio] 0.9 {ratio} Normal 0.9-2.4 [facility] Comment on above: Order Comment: Order Date: 06/05/24 Order Info: [id number] - CMP Order Info: [id number] - LIPID Order Info: [id number] - TSH Order Info: [id number] - PSA Order Info: [id number] - T4F Performed By: #### L 501.9910, L506.0400, L500.4050, L501.9520, L100.0100, L500.4100 #### [facility] [address] [place], [address] ALK P 78 U/L Normal 45-117 [facility] Comment on above: Order Comment: Order Date: 06/05/24 Order Info: [id number]- - CMP Order Info: - LIPID Order Info: 3 - TSH Order Info: [id number] - PSA Order Info: 7 - T4F Performed By: #### L 501.9910, L506.0400, L500.4050, L501.9520, L100.0100, L500.4100 #### [facility] [address] [place], [address] ALT [Catalytic activity/Vol] 35 U/L Normal 16-61 [facility] Comment on above: Order Comment: Order Date: 06/05/24 Order Info: [id number] - CMP Order Info: - LIPID Order Info: [id number] - TSH Order Info: [id number] - PSA Order Info: [id number] - T4F Performed By: #### L 501.9910, L506.0400, L500.4050, L501.9520, L100.0100, L500.4100 #### [facility] [address] [place], [address] AST [Catalytic activity/Vol] 31 U/L Normal 15-37 [facility] Comment on above: Order Comment: Order Date: 06/05/24 Order Info: [id number] - CMP Order Info: - LIPID Order Info: 3 - TSH Order Info: [id number] - PSA Order Info: [id number] - T4F Result Comment: Mode rate Hemolysis, Result may be falsely increased. Performed By: #### L 501.9910, L506.0400, L500.4050, L501.9520, L100.0100, L500.4100 #### [facility] [address] [place], [address] Bilirubin [Mass/Vol] 1.20 mg/dL High 0.20-1.00 [facility] Comment on above: Order Comment: Order Date: 06/05/24 Order Info: 785- - CMP Order Info: - LIPID Order Info: 3 - TSH Order Info: [id number] - PSA Order Info: 3027 - T4F Result Comment: For patients on eltrombopag therapy, use of Dimension [place] TBIL is not recommended. Performed By: #### L 501.9910, L506.0400, L500.4050, L501.9520, L100.0100, L500.4100 #### [facility] [address] [place], [address] BUN/CRE 15.4 RATIO Normal 10-20 [facility] Comment on above: Order Comment: Order Date: 06/05/24 Order Info: [id number]- - CMP Order Info: - LIPID Order Info: 3 - TSH Order Info: [id number] - PSA Order Info: 7 - T4F Performed By: #### L 501.9910, L506.0400, L500.4050, L501.9520, L100.0100, L500.4100 #### [facility] [address] [place], [address] CA,Total 9.1 mg/dL Normal 8.5-10.1 [facility] Comment on above: Order Comment: Order Date: 06/05/24 Order Info: [id number] - CMP Order Info: - LIPID Order Info: 3 - TSH Order Info: 2856-11 - PSA Order Info: 302-7 - T4F Performed By: #### L 501.9910, L506.0400, L500.4050, L501.9520, L100.0100, L500.4100 #### [facility] [address] [place], [address] Chloride [Moles/Vol] 106 mmol/L Normal 98-107 [facility] Comment on above: Order Comment: Order Date: 06/05/24 Order Info: 785- - CMP Order Info: [id number] - LIPID Order Info: [id number] - TSH Order Info: 2851 - PSA Order Info: 7 - T4F Performed By: #### L 501.9910, L506.0400, L500.4050, L501.9520, L100.0100, L500.4100 #### [facility] [address] [place], [address] CO2 [Moles/Vol] 27.0 mmol/L Normal 21.0-32.0 [facility] Comment on above: Order Comment: Order Date: 06/05/24 Order Info: 785- - CMP Order Info: - LIPID Order Info: [id number] - TSH Order Info: 2856-11 - PSA Order Info: 3024-05 - T4F Performed By: #### L 501.9910, L506.0400, L500.4050, L501.9520, L100.0100, L500.4100 #### [facility] [address] [place], [address] Creatinine [Mass/Vol] 1.04 mg/dL Normal 0.70-1.30 [facility] Comment on above: Order Comment: Order [...] 501.9910, L506.0400, L500.4050, L501.9520, L100.0100, L500.4100 #### [facility] [address] [place], [address] EST GFR - AA 95 mL/min Normal >60 [facility] Comment on above: Order Comment: Order Date: 06/05/24 Order Info: 785-1 - CMP Order Info: [id number] - LIPID Order Info: [id number] - TSH Order Info: 2856-11 - PSA Order Info: 3024-05 - T4F Result Comment: Afri can [place]araguan GFR Calc Performed By: #### L 501.9910, L506.0400, L500.4050, L501.9520, L100.0100, L500.4100 #### [facility] [address] [place], [address] GAP 7 Normal 5-15 [facility] Comment on above: Order Comment: Order Date: 06/05/24 Order Info: 785-11 - CMP Order Info: - LIPID Order Info: [id number] - TSH Order Info: 2856-11 - PSA Order Info: 3024-05 - T4F Performed By: #### L 501.9910, L506.0400, L500.4050, L501.9520, L100.0100, L500.4100 #### [facility] [address] [place], [address] GFR/1.73 sq M.predicted among non-blacks MDRD (S/P/Bld) [Vol rate/Area] 79 mL/min/{1.73_m2} Normal >60 [facility] Comment on above: Order Comment: Order Date: 06/05/24 Order Info: 785-11 - CMP Order Info: [id number] - LIPID Order Info: [id number] - TSH Order Info: 2856-11 - PSA Order Info: 3024-05 - T4F Result Comment: Non- GFR Calc Performed By: #### L 501.9910, L506.0400, L500.4050, L501.9520, L100.0100, L500.4100 #### [facility] [address] [place], [address] Globulin (S) [Mass/Vol] 4.0 g/dL Normal 2.2-4.2 [facility] Comment on above: Order Comment: Order Date: 06/05/24 Order Info: 785-11 - CMP Order Info: - LIPID Order Info: [id number] - TSH Order Info: 2856-11 - PSA Order Info: 7 - T4F Performed By: #### L 501.9910, L506.0400, L500.4050, L501.9520, L100.0100, L500.4100 #### [facility] [address] [place], [address] Glucose [Mass/Vol] 95 mg/dL Normal 74-106 [facility] Comment on above: Order Comment: Order Date: 06/05/24 Order Info: 785- - CMP Order Info: - LIPID Order Info: [id number] - TSH Order Info: 2856-11 - PSA Order Info: 3024-05 - T4F Performed By: #### L 501.9910, L506.0400, L500.4050, L501.9520, L100.0100, L500.4100 #### [facility] [address] [place], [address] Potassium [Moles/Vol] 4.1 mmol/L Normal 3.5-5.1 [facility] Comment on above: Order Comment: Order Date: 06/05/24 Order Info: 785- - CMP Order Info: 11324-8 - LIPID Order Info: [id number] - TSH Order Info: 2856-11 - PSA Order Info: 3024-05 - T4F Result Comment: Mode rate Hemolysis, Result may be falsely increased. Performed By: #### L 501.9910, L506.0400, L500.4050, L501.9520, L100.0100, L500.4100 #### [facility] [address] [place], [address] Sodium [Moles/Vol] 140 mmol/L Normal 136-145 [facility] Comment on above: Order Comment: Order Date: 06/05/24 Order Info: 785-1 - CMP Order Info: [id number] - LIPID Order Info: [id number] - TSH Order Info: 2856-11 - PSA Order Info: 3024-05 - T4F Performed By: #### L 501.9910, L506.0400, L500.4050, L501.9520, L100.0100, L500.4100 #### [facility] [address] [place], [address] T PROT 7.6 g/dL Normal 6.4-8.2 [facility] Comment on above: Order Comment: Order Date: 06/05/24 Order Info: 785- - CMP Order Info: - LIPID Order Info: [id number] - TSH Order Info: 2856-11 - PSA Order Info: 3024-05 - T4F Performed By: #### L 501.9910, L506.0400, L500.4050, L501.9520, L100.0100, L500.4100 #### [facility] [address] [place], [address] Urea nitrogen [Mass/Vol] 16 mg/dL Normal 7-18 [facility] Comment on above: Order Comment: Order Date: 06/05/24 Order Info: 785-11 - CMP Order Info: - LIPID Order Info: [id number] - TSH Order Info: 2856-11 - PSA Order Info: 3024-05 - T4F Performed By: #### L 501.9910, L506.0400, L500.4050, L501.9520, L100.0100, L500.4100 #### [facility] [address] [place], [address] Lipid Profileon 11-28-2024 Cholesterol [Mass/Vol] 196 mg/dL Normal 200 [facility] Comment on above: Order Comment: Order Date: 06/05/24 Order Info: 785-11 - CMP Order Info: - LIPID Order Info: [id number] - TSH Order Info: 2856-11 - PSA Order Info: 7 - T4F Result Comment: <200 mg/dL Desirable 200-240 mg/dL Borderline >240 mg/dL High Risk Performed By: #### L 501.9910, L506.0400, L500.4050, L501.9520, L100.0100, L500.4100 #### [facility] [address] [place], [address] Cholesterol in HDL [Mass/Vol] 65 mg/dL Normal [facility] Comment on above: Order Comment: Order Date: [...] 501.9910, L506.0400, L500.4050, L501.9520, L100.0100, L500.4100 #### [facility] [address] [place], [address] Cholesterol in LDL [Mass/Vol] 106 mg/dL Normal 0-130 [facility] Comment on above: Order Comment: Order Date: 06/05/24 Order Info: 785-11 - CMP Order Info: - LIPID Order Info: [id number] - TSH Order Info: 2856-11 - PSA Order Info: 7 - T4F Performed By: #### L 501.9910, L506.0400, L500.4050, L501.9520, L100.0100, L500.4100 #### [facility] [address] [place], [address] Cholesterol in VLDL [Mass/Vol] 25 mg/dL Normal 5-40 [facility] Comment on above: Order Comment: Order Date: 06/05/24 Order Info: 785-11 - CMP Order Info: - LIPID Order Info: [id number] - TSH Order Info: 2856-11 - PSA Order Info: 7 - T4F Performed By: #### L 501.9910, L506.0400, L500.4050, L501.9520, L100.0100, L500.4100 #### [facility] [address] [place], [address] Triglyceride [Mass/Vol] 125 mg/dL Normal [facility] Comment on above: Order Comment: Order Date: 06/05/24 Order Info: 07- - CMP Order Info: - LIPID Order Info: 3 - TSH Order Info: 2856-11 - PSA Order Info: 3024-05 T4F Result Comment: The drugs N-Acetylcysteine and Metamizole may falsely depress this assay. Serum Triglycerides Reference Interval Normal <150 mg/dL Borderline high 150 - 199 mg/dL High 200 - 499 mg/dL Very High > or = 500 mg/dL Performed By: #### L 501.9910, L506.0400, L500.4050, L501.9520, L100.0100, L500.4100 #### [facility] [address] [place], [address] PSA,Total - Annual Screenon 11-28-2024 PSA,TOT SCREEN 0.54 ng/mL Normal 0.00-4.00 [facility] Comment on above: Order Comment: Order Date: 06/05/24 Order Info: 86 - CMP Order Info: - LIPID Order Info: 3 - TSH Order Info: 2856-11 - PSA Order Info: 3024-05 - T4F Result Comment: This test was performed using the TPSA assay method for the [employer] chemistry system. Values obtained with different assay methods cannot be used interchangably. When changing PSA assays in the course of monitoring a patient, additional sequential testing should be carried out to confirm baseline values. Performed By: #### L 501.9910, L506.0400, L500.4050, L501.9520, L100.0100, L500.4100 #### [facility] [address] [place], [place], [address] T4 Free Directon 11-28-2024 T4 FREE DIRECT 0.88 ng/dL Normal 0.76-1.46 [facility] Comment on above: Order Comment: Order Date: 06/05/24 Order Info: 785- - CMP Order Info: [id number] - LIPID Order Info: [id number] - TSH Order Info: 2856-11 - PSA Order Info: 3024-7 - T4F Performed By: #### L 501.9910, L506.0400, L500.4050, L501.9520, L100.0100, L500.4100 #### [facility] [address] [facility]. [place], [place], [address] [phone] Thyroid Stim Hormone (TSH)on 11-28-2024 TSH 2.540 uIU/mL Normal 0.358-3.74 0 [facility] Comment on above: Order Comment: Order Date: 06/05/24 Order Info: 785-11 - CMP Order Info: - LIPID Order Info: 3 - TSH Order Info: 2856-11 - PSA Order Info: 3024-7 - T4F Performed By: #### L 501.9910, L506.0400, L500.4050, L501.9520, L100.0100, L500.4100 #### [facility] [address] [facility] [place], [address] Foot min 3 Viewson 4 Foot min [address] [facility] [address] [place] [address] Foot min 3 Views MR#: [id number] Acct: [id number] Name: VINH COLBY Rep #: [id number] : 1970 M 54 From: [place] DO PCP: Dr. Kailyn Ibrahim MD Status: REG CLI Study: Foot min 3 Views Date of Exam: 08/30/24 Exam# [id number] Ordering Dr: Kailyn Ibrahim MD [id number] INDICATION: Pain, possible heel spur EXAMINATION/TECHNIQUE: X-RAY [...] 16:56 EDT Reading Location ID and State: [facility] / [place] Tel [phone], Service support , CC: Dr. Kailyn Ibrahim MD [employer] Worker: Signed Normal [facility] Absolute lymphocyte countOrd ered By: Kailyn Ibrahim on 05-17-2023 Lymphocytes Auto (Unsp spec) [#/Vol] 1.60 10*3/uL 0.83-4.51 [facility] Basophil percentageOrdered B y: Kailyn Ibrahim on 05-17-2023 Basophil percentage 0 SEEN /hpf 0-5 [facility] Basophils/100 WBC (Bld) 0.9 % 0-1 [facility] Bilirubin [Mass/Vol] 1.10 mg/dL 0.20-1.00 [facility] Comment on above: For patients on eltr ombopag therapy, use of Dimension [place] TBIL is not recommended. Chloride [Moles/Vol] 107 mmol/L 98-107 [facility] Eosinophils/100 WBC (Bld) 0.7 % 0-5 [facility] Glucose [Mass/Vol] 91 mg/dL 74-106 [facility] Neutrophils (Bld) [#/Vol] 3.2 10*3/uL 2.0-7.7 [facility] Neutrophils/100 WBC (Bld) 58.9 % 47-70 [facility] Potassium [Moles/Vol] 4.3 mmol/L 3.5-5.1 [facility] Protein [Mass/Vol] 7.6 g/dL 6.4-8.2 [facility] Sodium [Moles/Vol] 139 mmol/L 136-145 [facility] WBC (Bld) [#/Vol] 5.4 10*3/uL 4.4-11.0 [facility] Bilirubin Test strip Ql (U)O rdered By: Kailyn Ibrahim on 05-17-2023 Bilirubin Ql (U) Negative Negative [facility] Blood erythrocytes count (nu mber/volume)Ordered By: Kailyn Ibrahim on 05-17-2023 RBC (Bld) [#/Vol] 5.13 10*6/uL 4.6-6.2 [facility] Blood hemoglobin measurement (mass/volume)Ordered By: Kailyn Ibrahim on 05-17-2023 Hemoglobin (Bld) [Mass/Vol] 16.1 g/dL 13.0-16.5 [facility] Blood lymphocytes/100 leukoc ytesOrdered By: Kailyn Ibrahim on 05-17-2023 Lymphocytes/100 WBC (Bld) 29.5 % 19-41 [facility] Blood monocytes/100 leukocyt esOrdered By: Kailyn Ibrahim on 05-17-2023 Monocytes/100 WBC (Bld) 9.6 % 0-10 [facility] Blood platelet mean volumeOr dered By: Kailyn Ibrahim on 05-17-2023 Platelet mean volume (Bld) [Entitic vol] 10.2 fL 6.2-12.0 [facility] Determination of erythrocyte mean corpuscular volume (MCV)Ordered By: Kailyn Ibrahim on 05-17-2023 MCV (RBC) [Entitic vol] 89.3 fL 80-94 [facility] Hematocrit Auto (Bld) [Volum e fraction]Ordered By: Kailyn Ibrahim on 05-17-2023 Hematocrit (Bld) [Volume fraction] 45.8 % 40-54 [facility] Ketones Test strip Ql (U)Ord ered By: Kailyn Ibrahim on 05-17-2023 Ketones Ql (U) Negative Negative [facility] - Chemistry and C hemistry - challengeOrdered By: Kailyn Ibrahim on 05-17-2023 ALP [Catalytic activity/Vol] 83 U/L 45-117 [facility] ALT [Catalytic activity/Vol] 38 U/L 16-61 [facility] CO2 [Moles/Vol] 27.0 mmol/L 21.0-32.0 [facility] Free T4 [Mass/Vol] 1.02 ng/dL 0.76-1.46 [facility] Globulin (S) [Mass/Vol] 4.0 g/dL 2.2-4.2 [facility] Urea nitrogen/Creatinine [Mass ratio] 16.5 mg/mg 10-20 [facility] - Hematology and Cell countsOrdered By: Kailyn Ibrahim on 05-17-2023 Erythrocyte distribution width (RBC) [Entitic vol] 41.1 fL 35.1-43.9 [facility] Erythrocyte distribution width (RBC) [Ratio] 12.6 % 11.6-14.6 [facility] Immature granulocytes/100 WBC (Bld) 0.400 % 0.0-0.9 [facility] Comment on above: IG% - Immature Granu locytes (promyelocytes, myelocytes and metamyelocytes) > 1% indicates that a LEFT SHIFT is Present. MCH (RBC) [Entitic mass] 31.4 pg 27.0-32.0 [facility] Nucleated RBC/100 WBC (Bld) [Ratio] 0 % 0-5 [facility] MCHC Auto (RBC) [Mass/Vol]Or dered By: Kailyn Ibrahim on 05-17-2023 MCHC (RBC) [Mass/Vol] 35.2 g/dL 32-36 [facility] Mucus LM Ql (Urine sed)Order ed By: Kailyn Ibrahim on 05-17-2023 Mucus Ql (Urine sed) 0 SEEN /hpf [facility] Nitrite Test strip Ql (U)Ord ered By: Kailyn Ibrahim on 05-17-2023 Nitrite Ql (U) Negative Negative [facility] No Panel InformationOrdered By: Kailyn Ibrahim on 05-17-2023 Estimated GFR (MDRD) Amer 91 mL/min >60 [facility] Comment on above: GFR Calc Estimated GFR (MDRD) Non-Af Amer 75 mL/min >60 [facility] Comment on above: Non- GFR Calc Thyroid Stimulating Hormone (TSH) 2.32 uIU/mL 0.358-3.74 [facility] Platelets bldOrdered By: Darshan Ibrahim on 05-17-2023 Platelets (Bld) [#/Vol] 230 10*3/uL 150-450 [facility] Protein Test strip Ql (U)Ord ered By: Kailyn Ibrahim on 05-17-2023 Protein Ql (U) Negative Negative [facility] Serum or plasma albumin josselin urement (mass/volume)Ordered By: Kailyn Ibrahim on 05-17-2023 Albumin [Mass/Vol] 3.6 g/dL 3.2-5.0 [facility] Serum or plasma albumin/glob ulin mass ratioOrdered By: Kailyn Ibrahim on 05-17-2023 Albumin/Globulin [Mass ratio] 0.9 {ratio} 0.9-2.4 [facility] Serum or plasma calcium josselin urement (mass/volume)Ordered By: Kailyn Ibrahim on 05-17-2023 Calcium [Mass/Vol] 8.8 mg/dL 8.5-10.1 [facility] Serum or plasma creatinine m easurement (mass/volume)Ordered By: Kailyn Ibrahim on 05-17-2023 Creatinine [Mass/Vol] 1.09 mg/dL 0.70-1.30 [facility] Comment on above: The validity of the calculated GFR & GFRAA in patients over 70 years has not been determined. Clinical correlation is essential. Serum or plasma urea nitroge n measurement (mass/volume)Ordered By: Kailyn Ibrahim on 05-17-2023 Urea nitrogen [Mass/Vol] 18 mg/dL 7-18 [facility] Squamous epithelial cells de tection in urine sediment by light microscopyOrdered By: Kailyn Ibrahim on 05-17-2023 Epithelial cells.squamous LM Ql (Urine sed) 0 SEEN /hpf 0-5 [facility] Thin prep Papanicolaou smear with manual screeningOrdered By: Kailyn Ibrahim on 05-17-2023 Thin prep Papanicolaou smear with manual screening 34 U/L 15-37 [facility] Thin prep Papanicolaou smear with manual screening 5 5-15 [facility] Urine blood detectionOrdered By: Kailyn Ibrahim on 05-17-2023 RBC Ql (U) Negative Negative [facility] RBC Ql (U) 0 SEEN /hpf 0-5 [facility] Urine clarityOrdered By: Darshan Ibrahim on 05-17-2023 Clarity (U) Sl. Cloudy Clear [facility] Urine color determinationOrd ered By: Kailyn Ibrahim on 05-17-2023 Color (U) Yellow Yellow [facility] Urine glucose detectionOrder ed By: Kailyn Ibrahim on 05-17-2023 Glucose Ql (U) Normal mg/dl Normal [facility] Urine leukocyte esterase det ection by dipstickOrdered By: Kailyn Ibrahim on 05-17-2023 Leukocyte esterase Test strip Ql (U) Negative Negative [facility] Urine pHOrdered By: Kailyn watkins on 05-17-2023 pH (U) 6.5 [pH] 5.0 - 8.0 [facility] Urine sediment bacteria coun t by microscopy (number/high power field)Ordered By: Kailyn Ibrahim on 05-17-2023 Bacteria LM.HPF (Urine sed) [#/Area] 0 /[HPF] None Seen [facility] Urine specific gravity measu rementOrdered By: Kailyn Ibrahim on 05-17-2023 Specific gravity (U) [Rel density] 1.020 1.002-1.03 0 [facility] Urobilinogen Auto test strip Ql (U)Ordered By: Kailyn Ibrahim on 05-17-2023 Urobilinogen Ql (U) Normal mg/dl Normal [facility] Basophil percentageon 2021 Basophil percentage 0 SEEN /hpf 0-5 [facility] Work Phone: Bilirubin [Mass/Vol] 0.60 mg/dL 0.20-1.00 [facility] Work Phone: Comment on above: For patients on eltr ombopag therapy, use of Dimension [place] TBIL is not recommended. Chloride [Moles/Vol] 108 mmol/L 98-107 [facility] Work Phone: Cholesterol [Mass/Vol] 171 mg/dL <200 [facility] Work Phone: Comment on above: <200 mg/dL Desirable 200-240 mg/dL Borderline >240 mg/dL High Risk Glucose [Mass/Vol] 94 mg/dL 74-106 [facility] Work Phone: Potassium [Moles/Vol] 3.8 mmol/L 3.5-5.1 [facility] Work Phone: Protein [Mass/Vol] 7.3 g/dL 6.4-8.2 [facility] Work Phone: Sodium [Moles/Vol] 141 mmol/L 136-145 [facility] Work Phone: Triglyceride [Mass/Vol] 106 mg/dL <199 [facility] Work Phone: Comment on above: The drugs N-Acetylcy steine and Metamizole may falsely depress this assay.Serum Triglycerides Reference Interval Normal <150 mg/dL Borderline high 150 - 199 mg/dL High 200 - 499 mg/dL Very High > or = 500 mg/dL Bilirubin Test strip Ql (U)o n 05-20-2022 Bilirubin Ql (U) Negative Negative [facility] Work Phone: Calcium oxalate crystals det ection in urine sediment by light microscopyon 05-20-2022 Calcium oxalate crystals LM Ql (Urine sed) 1+ /hpf [facility] Work Phone: Ketones Test strip Ql (U)on 05-20-2022 Ketones Ql (U) Negative Negative [facility] Work Phone: Laboratory - Chemistry and C hemistry - challengeon 05-20-2022 ALP [Catalytic activity/Vol] 91 U/L 45-117 [facility] Work Phone: [phone] ALT [Catalytic activity/Vol] 42 U/L 16-61 [facility] Work Phone: CO2 [Moles/Vol] 27.0 mmol/L 21.0-32.0 [facility] Work Phone: Free T4 [Mass/Vol] 1.10 ng/dL 0.76-1.46 [facility] Work Phone: Globulin (S) [Mass/Vol] 3.5 g/dL 2.2-4.2 [facility] Work Phone: Urea nitrogen/Creatinine [Mass ratio] 16.9 mg/mg 10-20 [facility] Work Phone: Mucus LM Ql (Urine sed)on Mucus Ql (Urine sed) 1+ /hpf [facility] Work Phone: Nitrite Test strip Ql (U)on 05-20-2022 Nitrite Ql (U) Negative Negative [facility] Work Phone: No Panel Informationon 05-20 Estimated GFR (MDRD) Amer 83 mL/min >60 [facility] Work Phone: Comment on above: GFR Calc Estimated GFR (MDRD) Non-Af Amer 69 mL/min >60 [facility] Work Phone: Comment on above: Non- GFR Calc Thyroid Stimulating Hormone (TSH) 1.43 uIU/mL 0.358-3.74 [facility] Work Phone: Protein Test strip Ql (U)on 05-20-2022 Protein Ql (U) Negative Negative [facility] Work Phone: Serum or plasma albumin josselin urement (mass/volume)on 05-20-2022 Albumin [Mass/Vol] 3.8 g/dL 3.2-5.0 [facility] Work Phone: Serum or plasma albumin/glob ulin mass ratioon 05-20-2022 Albumin/Globulin [Mass ratio] 1.1 {ratio} 0.9-2.4 [facility] Work Phone: Serum or plasma calcium josselin urement (mass/volume)on 05-20-2022 Calcium [Mass/Vol] 8.8 mg/dL 8.5-10.1 [facility] Work Phone: Serum or plasma cholesterol in HDL measurement (mass/volume)on 05-20-2022 Cholesterol in HDL [Mass/Vol] 54 mg/dL >40 [facility] Work Phone: Comment on above: The drugs N-Acetylcy steine and Metamizole may falsely depress this assay. Reference Range HDL <40 mg/dL Low HDL Cholesterol HDL >or= 60 mg/dL High HDL Cholesterol Serum or plasma cholesterol in VLDL measurement (mass/volume)on 05-20-2022 Cholesterol in VLDL [Mass/Vol] 21 mg/dL 5-40 [facility] Work Phone: Serum or plasma creatinine m easurement (mass/volume)on 05-20-2022 Creatinine [Mass/Vol] 1.18 mg/dL 0.70-1.30 [facility] Work Phone: Comment on above: The validity of the calculated GFR & GFRAA in patients over 70 years has not been determined. Clinical correlation is essential. Serum or plasma low density lipoprotein (LDL) cholesterol measurement (mass/volume)on 05-20-2022 Cholesterol in LDL [Mass/Vol] 96 mg/dL 0-130 [facility] Work Phone: Serum or plasma urea nitroge n measurement (mass/volume)on 05-20-2022 Urea nitrogen [Mass/Vol] 20 mg/dL 7-18 [facility] Work Phone: Squamous epithelial cells de tection in urine sediment by light microscopyon 05-20-2022 Epithelial cells.squamous LM Ql (Urine sed) 0 SEEN /hpf 0-5 [facility] Work Phone: Thin prep Papanicolaou smear with manual screeningon 05-20-2022 Thin prep Papanicolaou smear with manual screening 26 U/L 15-37 [facility] Work Phone: Thin prep Papanicolaou smear with manual screening 6 5-15 [facility] Work Phone: Urine blood detectionon 05-06 RBC Ql (U) Negative Negative [facility] Work Phone: RBC Ql (U) 0 SEEN /hpf 0-5 [facility] Work Phone: Urine clarityon 05-20-2022 Clarity (U) Clear Clear [facility] Work Phone: Urine color determinationon 05-20-2022 Color (U) Yellow Yellow [facility] Work Phone: Urine glucose detectionon Glucose Ql (U) Normal mg/dl Normal [facility] Work Phone: Urine leukocyte esterase det ection by dipstickon 05-20-2022 Leukocyte esterase Test strip Ql (U) Negative Negative [facility] Work Phone: Urine pHon 05-20-2022 pH (U) 5.0 [pH] 5.0 - 8.0 [facility] Work Phone: Urine sediment bacteria coun t by microscopy (number/high power field)on 05-20-2022 Bacteria LM.HPF (Urine sed) [#/Area] RARE /hpf None Seen [facility] Work Phone: Urine specific gravity measu rementon 05-20-2022 Specific gravity (U) [Rel density] 1.025 1.002-1.03 0 [facility] Work Phone: Urobilinogen Auto test strip Ql (U)on 05-20-2022 Urobilinogen Ql (U) Normal mg/dl Normal [facility] Work Phone: Coronavirus (COVID-19/SARS-C oV-2) St. [facility] 09-29-2020 Device Identifier [employer] SARS- CoV-2 assay_FrugalMechanic. 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 Comment on above: Performed By: #### 6 9405-9 #### [facility] [address] [place] [address] ICU N [facility] Comment on above: Performed By: #### 6 9405-9 #### [facility] [address] [place] [address] Illness or injury onset date and time N [facility] Comment on above: Performed By: #### 6 9405-9 #### [facility] [address] [place] [address] Patient was hospitalized because of this condition N [facility] Comment on above: Performed By: #### 6 9405-9 #### [facility] [address] [place] [address] status [facility] Comment on above: Performed By: #### 6 9405-9 #### [facility] [address] [place] [address] Resides in congregate care setting [facility] Comment on above: Performed By: #### 6 9405-9 #### [facility] [address] [place] [address] SARS-CoV-2 NOTDET [facility] Comment on above: Result Comment: This test was performed via the Aptima SARS-CoV-2 Assay (HeyBubble), a Nucleic Acid Amplification Test (NAAT), and has been authorized by the FDA under an Emergency Use Authorization (EUA). The assay is validated for nasopharyngeal (RAG WILLOW OPERATOR), nasal, and oropharyngeal (OP) swab specimens. The [...] www.cdc.gov/coronavirus. Performed By: #### 6 9405-9 #### [facility] [address] [place] [address] Symptomatic as defined by CDC [facility] Comment on above: Performed By: #### 6 9405-9 #### [facility] [address] [place] [address] Basic Metabolic Panelon 11 Anion gap [Moles/Vol] 7.0 mmol/L Normal 6.0-18.0 [facility] Comment on above: Performed By: #### 2 4317-0 #### [facility] [address] [place] [address] Calcium [Mass/Vol] 8.6 mg/dL Low 8.9-10.3 [facility] Comment on above: Performed By: #### 2 4317-0 #### [facility] [address] [place] [address] Chloride [Moles/Vol] 105 mmol/L Normal 98-107 Moun [facility] Comment on above: Performed By: #### 2 4317-0 #### [facility] [address] [facility] [place] [address] CO2 [Moles/Vol] 26 mmol/L Normal 22-32 [facility] Comment on above: Performed By: #### 2 4317-0 #### [facility] [address] [place] [address] Creatinine [Mass/Vol] 0.96 mg/dL Normal 0.60-1.30 [facility] Comment on above: Performed By: #### 2 4317-0 #### [facility] [address] [place] [address] Glucose [Mass/Vol] 98 mg/dL Normal 70-99 [facility] Comment on above: Result Comment: U pdated ADA Reference Range A normal fasting glucose concentration is less than 100 mg/dL. An impaired fasting glucose concentration is 100-125 mg/dL. A provisional diagnosis of diabetes mellitus can be made when a fasting glucose concentration is greater than 125 mg/dL. Performed By: #### 2 4317-0 #### [facility] [address] [place] [address] Potassium [Moles/Vol] 3.9 mmol/L Normal 3.6-5.1 [facility] Comment on above: Performed By: #### 2 4317-0 #### [address] [place] [address] Sodium [Moles/Vol] 138 mmol/L Normal 136-145 [facility] Comment on above: Performed By: #### 2 4317-0 #### [address] [place] [address] Urea nitrogen (BldV) [Mass/Vol] 17 mg/dL Normal 8-20 [facility] Comment on above: Performed By: #### 2 4317-0 #### [address] [address] CBCon 09-27-2020 Erythrocyte distribution width (RBC) [Entitic vol] 13.1 % Normal 11.0-14.8 [facility] Comment on above: Performed By: #### 2 4317-0 #### [address] [address] Hematocrit (Bld) [Volume fraction] 37.6 % Low 39.0-49.0 [facility] Comment on above: Performed By: #### 2 4317-0 #### [address] [address] Hemoglobin (Bld) [Mass/Vol] 12.7 g/dL Low 13.5-17.5 [facility] Comment on above: Performed By: #### 2 4317-0 #### [address] [place] [address] MCH (RBC) [Entitic mass] 30.8 Picograms Normal 27.0-34.0 [facility] Comment on above: Performed By: #### 2 4317-0 #### [address] [address] MCHC (RBC) [Mass/Vol] 33.8 g/dL Normal 32.0-36.0 [facility] Comment on above: Performed By: #### 2 4317-0 #### [address] [place] [address] MCV (RBC) [Entitic vol] 91.0 fL Normal 80.0-97.0 [facility] Comment on above: Performed By: #### 2 4317-0 #### [facility] [address] [place] [address] Platelet mean volume (Bld) [Entitic vol] 9.6 fL Normal 6.2-12.1 [facility] Comment on above: Performed By: #### 2 4317-0 #### [address] [address] Platelets (Bld) [#/Vol] 241 thou/mcL Normal 142-424 [facility] Comment on above: Performed By: #### 2 4317-0 #### [address] [address] RBC (Bld) [#/Vol] 4.13 million/mcL Low 4.30-5.70 [facility] Comment on above: Performed By: #### 2 4317-0 #### [address] [address] WBC (Bld) [#/Vol] 7.8 thou/mcL Normal 4.6-10.2 [facility] Comment on above: Performed By: #### 2 4317-0 #### [address] [address] GFRaaon 09-27-2020 GFR/1.73 sq M predicted among blacks MDRD (S/P/Bld) [Vol rate/Area] mL/min/{1.73_m2} Normal [facility] Comment on above: Result Comment: The MDRD equation has not been validated for those over 70 years, women, patients with serious co-morbid conditions, or with extremes of body size, muscle mass of nutritional status. Performed By: #### 6 9405-9 #### [facility] [address] [facility] [place] [address] GFRbbon 09-27-2020 GFR/1.73 sq M predicted among non-blacks MDRD (S/P/Bld) [Vol rate/Area] mL/min/{1.73_m2} Normal [facility] Comment on above: Performed By: #### 6 9405-9 #### [address] [address] Magnesium Levelon 09-27-2020 Magnesium [Mass/Vol] 2.2 mg/dL Normal 1.8-2.5 [facility] Comment on above: Performed By: #### 1 9123-9 #### [facility] [address] [place] [address] Patient Summaryon 09-27-2020 Patient Summary PATIENT DISCHARGE INSTRUCTIONS If you are having an emergency and are not able to reach your physician, CALL 911 or go to the nearest emergency room and take this document with you. [facility] 09/27/20 11:[address] [place] [address]. [id number] PATIENT INFORMATION ------ Name: VINH COLBY Address: [address] [place] [address] [place] [address] Age: 50 Years Phone: [phone] : 1970 12:00 MRN: [id number] Sex: Male Race: White Ethnicity: Not Hispan/Lat Admitted From: Clinic or [facility] Medical Service: Surgery Nurse Unit/Bed: (CT) 5FGC 5210-01 Admit Date: 09/22/2020 06:15 PCP: Physician, PCP Unknown PHYSICIANS INVOLVED WITH CARE Attending Physicians: Demarcus Rubio MD - Surgery Admitting Physician: None found Primary Care Physician:Physician, PCP Unknown,Family Practice,,, - Consults: None found FOLLOW-UP APPOINTMENTS: Provider: Specialty: Address: Date: PCP Unknown Physician Family Practice Follow-up as needed Provider: Specialty: Address: Date: Demarcus Rubio MD Surgery [address] [address] (1) 7 to 10 days Comment: Call [...] doses are changed, or new medications (including pmus-krt-vfskgft products) are added. Ask your doctor if [...] doctor before taking any supplements, herbal or qaqx-anl-zlzakdr medications. Call your doctor if you have [...] suicide hotline, anytime day or night, at 1-583-500-EOGF. It's easy to sign up for [employer]: 1. Visit [email or web address] alth 2. Click on [place] for [employer] 3. Verify your identity by entering your [...] your account, you'll be redirected to the [employer] login page. Login and check to see your results Questions? For help with account enrollment, call [employer] Customer Support at [phone] (toll-free) PATIENT EDUCATION Open Hernia Repair, Care [...] prevent this. HOME CARE INSTRUCTIONS ???Only take nohm-uww-jalhbyv or prescription medicines as directed by your [...] 05/12/2006 Document Revised: 11/13/2015 Document Reviewed: 06/04/2014 [employer] Interactive Patient Education ?2016 [employer] Bulb Drain Home Care A bulb [...] 10/20/2001 Document Revised: 11/13/2015 Document Reviewed: 03/27/2013 [employer] Interactive Patient Education ?2016 [employer] What You Should Know About Opioid Medicine What is an Opioid? Opioid medications are used to treat moderate to severe pain. Morphine, Oxycodone (Percocet?), Hydromorphone (Dilaudid?) and Hydrocodone ([place]?) are some types of opioids. How do Opioids work? Opioids reduce the pain signals sent to your brain, which decrease your feelings of pain. Opioids may reduce your pain, but may not take all the pain away. What are the risks from taking opioids? Prescription opioids carry serious risks of physical dependence, addiction and overdose, with joint terminal attack controller use. If you take too much of [...] _ Clinician Signature ____ Date/Time __ Normal [facility] Phosphorus Levelon 0 Phosphate [Moles/Vol] 3.4 mg/dL Normal 2.4-4.7 [facility] Comment on above: Performed By: #### 6 9405-9 #### [address] [facility] [place] [address] Basic Metabolic Panelon 09-07 Anion gap [Moles/Vol] 5.0 mmol/L Low 6.0-18.0 [facility] Comment on above: Performed By: #### 6 9405-9 #### [address] [facility] [place] [address] Calcium [Mass/Vol] 8.2 mg/dL Low 8.9-10.3 [facility] Comment on above: Performed By: #### 6 9405-9 #### [address] [place] [address] Chloride [Moles/Vol] 106 mmol/L Normal 98-107 Moun [facility] Comment on above: Performed By: #### 6 9405-9 #### [facility] [address] [place] [address] CO2 [Moles/Vol] 27 mmol/L Normal 22-32 [facility] Comment on above: Performed By: #### 6 9405-9 #### [facility] [address] [place] [address] Creatinine [Mass/Vol] 0.95 mg/dL Normal 0.60-1.30 [facility] Comment on above: Performed By: #### 6 9405-9 #### [facility] [address] [facility] [place] [address] Glucose [Mass/Vol] 97 mg/dL Normal 70-99 [facility] Comment on above: Result Comment: U pdated ADA Reference Range A normal fasting glucose concentration is less than 100 mg/dL. An impaired fasting glucose concentration is 100-125 mg/dL. A provisional diagnosis of diabetes mellitus can be made when a fasting glucose concentration is greater than 125 mg/dL. Performed By: #### 6 9405-9 #### [facility] [address] [facility] [place] [place] [address] Potassium [Moles/Vol] 4.3 mmol/L Normal 3.6-5.1 [facility] Comment on above: Performed By: #### 6 9405-9 #### [facility] [address] [place] [address] Sodium [Moles/Vol] 138 mmol/L Normal 136-145 [facility] Comment on above: Performed By: #### 6 9405-9 #### [facility] [address] [place] [address] Urea nitrogen (BldV) [Mass/Vol] 16 mg/dL Normal 8-20 [facility] Comment on above: Performed By: #### 6 9405-9 #### [facility] [address] [facility] [place] [address] CBCon 09-26-2020 Erythrocyte distribution width (RBC) [Entitic vol] 13.1 % Normal 11.0-14.8 [facility] Comment on above: Performed By: #### 2 4317-0 #### [facility] [address] [place] [address] Hematocrit (Bld) [Volume fraction] 36.0 % Low 39.0-49.0 [facility] Comment on above: Performed By: #### 2 4317-0 #### [facility] [address] [place] [address] Hemoglobin (Bld) [Mass/Vol] 11.9 g/dL Low 13.5-17.5 [facility] Comment on above: Performed By: #### 2 4317-0 #### [facility] [address] [place] [address] MCH (RBC) [Entitic mass] 30.2 Picograms Normal 27.0-34.0 [facility] Comment on above: Performed By: #### 2 4317-0 #### [facility] [address] [place] [address] MCHC (RBC) [Mass/Vol] 33.1 g/dL Normal 32.0-36.0 [facility] Comment on above: Performed By: #### 2 4317-0 #### [facility] [address] [place] [address] MCV (RBC) [Entitic vol] 91.4 fL Normal 80.0-97.0 [facility] Comment on above: Performed By: #### 2 4317-0 #### [facility] [address] [place] [address] Platelet mean volume (Bld) [Entitic vol] 9.5 fL Normal 6.2-12.1 [facility] Comment on above: Performed By: #### 2 4317-0 #### [facility] [address] [place] [address] Platelets (Bld) [#/Vol] 212 thou/mcL Normal 142-424 [facility] Comment on above: Performed By: #### 2 4317-0 #### [facility] [address] [facility] [place] [address] RBC (Bld) [#/Vol] 3.94 million/mcL Low 4.30-5.70 [facility] Comment on above: Performed By: #### 2 4317-0 #### [facility] [address] [facility] [place] [address] WBC (Bld) [#/Vol] 9.1 thou/mcL Normal 4.6-10.2 [facility] Comment on above: Performed By: #### 2 4317-0 #### [facility] [address] [place] [address] Magnesium Levelon 09-26-2020 Magnesium [Mass/Vol] 2.1 mg/dL Normal 1.8-2.5 Moun [facility] Comment on above: Performed By: #### 2 4321-2 #### [facility] [address] [place] [address] Phosphorus Levelon 0 Phosphate [Moles/Vol] 3.1 mg/dL Normal 2.4-4.7 [facility] Comment on above: Performed By: #### 2 4321-2 #### [facility] [address] [place] [address] Basic Metabolic Panelon 09-07 0 Anion gap [Moles/Vol] 3.0 mmol/L Low 6.0-18.0 [facility] Comment on above: Performed By: #### 6 9405-9 #### [facility] [address] [place] [address] Calcium [Mass/Vol] 8.0 mg/dL Low 8.9-10.3 [facility] Comment on above: Performed By: #### 6 9405-9 #### [facility] [address] [place] [address] Chloride [Moles/Vol] 105 mmol/L Normal 98-107 Moun [facility] Comment on above: Performed By: #### 6 9405-9 #### [facility] [address] [facility] [place] [address] CO2 [Moles/Vol] 31 mmol/L Normal 22-32 [facility] Comment on above: Performed By: #### 6 9405-9 #### [facility] [address] [place] [address] Creatinine [Mass/Vol] 1.09 mg/dL Normal 0.60-1.30 [facility] Comment on above: Performed By: #### 6 9405-9 #### [facility] [address] [facility] [place] [address] Glucose [Mass/Vol] 99 mg/dL Normal 70-99 [facility] Comment on above: Result Comment: U pdated ADA Reference Range A normal fasting glucose concentration is less than 100 mg/dL. An impaired fasting glucose concentration is 100-125 mg/dL. A provisional diagnosis of diabetes mellitus can be made when a fasting glucose concentration is greater than 125 mg/dL. Performed By: #### 6 9405-9 #### [facility] [address] [place] [address] Potassium [Moles/Vol] 4.3 mmol/L Normal 3.6-5.1 [facility] Comment on above: Performed By: #### 6 9405-9 #### [address] [place] [address] Sodium [Moles/Vol] 139 mmol/L Normal 136-145 [facility] Comment on above: Performed By: #### 6 9405-9 #### [facility] [address] [facility] [place] [address] Urea nitrogen (BldV) [Mass/Vol] 16 mg/dL Normal 8-20 [facility] Comment on above: Performed By: #### 6 9405-9 #### [facility] [address] [facility] [place] [address] CBCon 09-25-2020 Erythrocyte distribution width (RBC) [Entitic vol] 13.2 % Normal 11.0-14.8 [facility] Comment on above: Performed By: #### 2 4317-0 #### [facility] [address] [place] [address] Hematocrit (Bld) [Volume fraction] 36.5 % Low 39.0-49.0 [facility] Comment on above: Performed By: #### 2 4317-0 #### [facility] [address] [place] [address] Hemoglobin (Bld) [Mass/Vol] 11.9 g/dL Low 13.5-17.5 [facility] Comment on above: Performed By: #### 2 4317-0 #### [facility] [address] [place] [address] MCH (RBC) [Entitic mass] 30.3 Picograms Normal 27.0-34.0 [facility] Comment on above: Performed By: #### 2 4317-0 #### [facility] [address] [place] [address] MCHC (RBC) [Mass/Vol] 32.6 g/dL Normal 32.0-36.0 [facility] Comment on above: Performed By: #### 2 4317-0 #### [facility] [address] [place] [address] MCV (RBC) [Entitic vol] 92.9 fL Normal 80.0-97.0 [facility] Comment on above: Performed By: #### 2 4317-0 #### [facility] [address] [place] [address] Platelet mean volume (Bld) [Entitic vol] 9.6 fL Normal 6.2-12.1 [facility] Comment on above: Performed By: #### 2 4317-0 #### [facility] [address] [place] [address] Platelets (Bld) [#/Vol] 181 thou/mcL Normal 142-424 [facility] Comment on above: Performed By: #### 2 4317-0 #### [facility] [address] [place] [address] RBC (Bld) [#/Vol] 3.93 million/mcL Low 4.30-5.70 M [facility] Comment on above: Performed By: #### 2 4317-0 #### [facility] [address] [place] [address] WBC (Bld) [#/Vol] 9.7 thou/mcL Normal 4.6-10.2 [facility] Comment on above: Performed By: #### 2 4317-0 #### [facility] [address] [place] [address] GFRaaon 09-25-2020 GFR/1.73 sq M predicted among blacks MDRD (S/P/Bld) [Vol rate/Area] mL/min/{1.73_m2} Normal [facility] Comment on above: Result Comment: The MDRD equation has not been validated for those over 70 years, women, patients with serious co-morbid conditions, or with extremes of body size, muscle mass of nutritional status. Performed By: #### 6 9405-9 #### [facility] [address] [place] [address] GFRbbon 09-25-2020 GFR/1.73 sq M predicted among non-blacks MDRD (S/P/Bld) [Vol rate/Area] mL/min/{1.73_m2} Normal [facility] Comment on above: Performed By: #### 2 4321-2 #### [facility] [address] [place] [address] Magnesium Levelon 09-25-2020 Magnesium [Mass/Vol] 2.0 mg/dL Normal 1.8-2.5 [facility] Comment on above: Performed By: #### 6 9405-9 #### [facility] [address] [place] [address] Phosphorus Levelon 0 Phosphate [Moles/Vol] 2.8 mg/dL Normal 2.4-4.7 [facility] Comment on above: Performed By: #### 2 4321-2 #### [facility] [address] [place] [address] Basic Metabolic Panelon 11-1 9-2020 Anion gap [Moles/Vol] 5.0 mmol/L Low 6.0-18.0 [facility] Comment on above: Performed By: #### 6 9405-9 #### [facility] [address] [place] [address] Calcium [Mass/Vol] 8.2 mg/dL Low 8.9-10.3 [facility] Comment on above: Performed By: #### 6 9405-9 #### [facility] [address] [place] [address] Chloride [Moles/Vol] 104 mmol/L Normal 98-107 Moun [facility] Comment on above: Performed By: #### 6 9405-9 #### [facility] [address] [place] [address] CO2 [Moles/Vol] 31 mmol/L Normal 22-32 [facility] Comment on above: Performed By: #### 6 9405-9 #### [facility] [address] [place] [address] Creatinine [Mass/Vol] 1.19 mg/dL Normal 0.60-1.30 [facility] Comment on above: Performed By: #### 6 9405-9 #### [facility] [address] [place] [address] Glucose [Mass/Vol] 98 mg/dL Normal 70-99 [facility] Comment on above: Result Comment: U pdated ADA Reference Range A normal fasting glucose concentration is less than 100 mg/dL. An impaired fasting glucose concentration is 100-125 mg/dL. A provisional diagnosis of diabetes mellitus can be made when a fasting glucose concentration is greater than 125 mg/dL. Performed By: #### 6 9405-9 #### [facility] [address] [place] [address] Potassium [Moles/Vol] 4.2 mmol/L Normal 3.6-5.1 [facility] Comment on above: Performed By: #### 6 9405-9 #### [facility] [address] [place] [address] Sodium [Moles/Vol] 140 mmol/L Normal 136-145 [facility] Comment on above: Performed By: #### 6 9405-9 #### [address] [place] [address] Urea nitrogen (BldV) [Mass/Vol] 19 mg/dL Normal 8-20 [facility] Comment on above: Performed By: #### 6 9405-9 #### [address] [place] [address] CBCon 09-24-2020 Erythrocyte distribution width (RBC) [Entitic vol] 13.2 % Normal 11.0-14.8 [facility] Comment on above: Performed By: #### 2 4321-2 #### [address] [address] Hematocrit (Bld) [Volume fraction] 37.2 % Low 39.0-49.0 [facility] Comment on above: Performed By: #### 2 4321-2 #### [address] [address] Hemoglobin (Bld) [Mass/Vol] 12.3 g/dL Low 13.5-17.5 [facility] Comment on above: Performed By: #### 2 4321-2 #### [address] [address] MCH (RBC) [Entitic mass] 30.8 Picograms Normal 27.0-34.0 [facility] Comment on above: Performed By: #### 2 4321-2 #### [address] [address] MCHC (RBC) [Mass/Vol] 33.1 g/dL Normal 32.0-36.0 [facility] Comment on above: Performed By: #### 2 4321-2 #### [address] [place] [address] MCV (RBC) [Entitic vol] 93.2 fL Normal 80.0-97.0 [facility] Comment on above: Performed By: #### 2 4321-2 #### [address] [place] [address] Platelet mean volume (Bld) [Entitic vol] 9.9 fL Normal 6.2-12.1 [facility] Comment on above: Performed By: #### 2 4321-2 #### [address] [place] [address] Platelets (Bld) [#/Vol] 181 thou/mcL Normal 142-424 [facility] Comment on above: Performed By: #### 2 4321-2 #### [facility] [address] [place] [address] RBC (Bld) [#/Vol] 3.99 million/mcL Low 4.30-5.70 [facility] Comment on above: Performed By: #### 2 4321-2 #### [address] [address] WBC (Bld) [#/Vol] 10.5 thou/mcL High 4.6-10.2 [facility] Comment on above: Performed By: #### 2 4321-2 #### [address] [address] Magnesium Levelon 09-24-2020 Magnesium [Mass/Vol] 2.0 mg/dL Normal 1.8-2.5 [facility] Comment on above: Performed By: #### 6 9405-9 #### [address] [place] [address] Phosphorus Levelon 0 Phosphate [Moles/Vol] 1.9 mg/dL Low 2.4-4.7 [facility] Comment on above: Performed By: #### 2 4321-2 #### [address] [address] Basic Metabolic Panelon 09-06 Anion gap [Moles/Vol] 3.0 mmol/L Low 6.0-18.0 [facility] Comment on above: Performed By: #### 2 4321-2 #### [address] [place] [address] Calcium [Mass/Vol] 8.6 mg/dL Low 8.9-10.3 [facility] Comment on above: Performed By: #### 2 4321-2 #### [facility] [address] [place] [address] Chloride [Moles/Vol] 106 mmol/L Normal 98-107 Moun [facility] Comment on above: Performed By: #### 2 4321-2 #### [facility] [address] [place] [address] CO2 [Moles/Vol] 30 mmol/L Normal 22-32 [facility] Comment on above: Performed By: #### 2 4321-2 #### [address] [place] [address] Creatinine [Mass/Vol] 1.62 mg/dL High 0.60-1.30 [facility] Comment on above: Performed By: #### 2 4321-2 #### [facility] [address] [place] [address] Glucose [Mass/Vol] 103 mg/dL High 70-99 [facility] Comment on above: Result Comment: U pdated ADA Reference Range A normal fasting glucose concentration is less than 100 mg/dL. An impaired fasting glucose concentration is 100-125 mg/dL. A provisional diagnosis of diabetes mellitus can be made when a fasting glucose concentration is greater than 125 mg/dL. Performed By: #### 2 4321-2 #### [facility] [address] [place] [address] Potassium [Moles/Vol] 4.6 mmol/L Normal 3.6-5.1 [facility] Comment on above: Performed By: #### 2 4321-2 #### [facility] [address] [place] [address] Sodium [Moles/Vol] 139 mmol/L Normal 136-145 [facility] Comment on above: Performed By: #### 2 4321-2 #### [facility] [address] [place] [address] Urea nitrogen (BldV) [Mass/Vol] 25 mg/dL High 8-20 [facility] Comment on above: Performed By: #### 2 4321-2 #### [facility] [address] [facility] [place] [address] Anion gap [Moles/Vol] 3.0 mmol/L Low 6.0-18.0 [facility] Comment on above: Performed By: #### 2 4321-2 #### [facility] [address] [place] [address] Calcium [Mass/Vol] 8.3 mg/dL Low 8.9-10.3 [facility] Comment on above: Performed By: #### 2 4321-2 #### [facility] [address] [place] [address] Chloride [Moles/Vol] 107 mmol/L Normal 98-107 [facility] Comment on above: Performed By: #### 2 4321-2 #### [facility] [address] [place] [address] CO2 [Moles/Vol] 27 mmol/L Normal 22-32 [facility] Comment on above: Performed By: #### 2 4321-2 #### [facility] [address] [place] [address] Creatinine [Mass/Vol] 2.38 mg/dL High 0.60-1.30 [facility] Comment on above: Performed By: #### 2 4321-2 #### [facility] [address] [place] [address] Glucose [Mass/Vol] 123 mg/dL High 70-99 [facility] Comment on above: Result Comment: U pdated ADA Reference Range A normal fasting glucose concentration is less than 100 mg/dL. An impaired fasting glucose concentration is 100-125 mg/dL. A provisional diagnosis of diabetes mellitus can be made when a fasting glucose concentration is greater than 125 mg/dL. Performed By: #### 2 4321-2 #### [facility] [address] [place] [address] Potassium [Moles/Vol] 5.0 mmol/L Normal 3.6-5.1 [facility] Comment on above: Performed By: #### 2 4321-2 #### [address] [place] [address] Sodium [Moles/Vol] 137 mmol/L Normal 136-145 [facility] Comment on above: Performed By: #### 2 4321-2 #### [address] [facility] [place] [address] Urea nitrogen (BldV) [Mass/Vol] 31 mg/dL High 8-20 [facility] Comment on above: Performed By: #### 2 4321-2 #### [address] [facility] [place] [place] [address] CBCon 09-23-2020 Erythrocyte distribution width (RBC) [Entitic vol] 13.9 % Normal 11.0-14.8 [facility] Comment on above: Performed By: #### 2 4317-0 #### [address] [address] Hematocrit (Bld) [Volume fraction] 39.5 % Normal 39.0-49.0 [facility] Comment on above: Performed By: #### 2 4317-0 #### [address] [address] Hemoglobin (Bld) [Mass/Vol] 12.8 g/dL Low 13.5-17.5 [facility] Comment on above: Performed By: #### 2 4317-0 #### [address] [place] [address] MCH (RBC) [Entitic mass] 30.3 Picograms Normal 27.0-34.0 [facility] Comment on above: Performed By: #### 2 4317-0 #### [address] [place] [address] MCHC (RBC) [Mass/Vol] 32.4 g/dL Normal 32.0-36.0 [facility] Comment on above: Performed By: #### 2 4317-0 #### [facility] [address] [place] [address] MCV (RBC) [Entitic vol] 93.6 fL Normal 80.0-97.0 [facility] Comment on above: Performed By: #### 2 4317-0 #### [facility] [address] [place] [address] Platelet mean volume (Bld) [Entitic vol] 9.5 fL Normal 6.2-12.1 [facility] Comment on above: Performed By: #### 2 4317-0 #### [facility] [address] [place] [address] Platelets (Bld) [#/Vol] 211 thou/mcL Normal 142-424 [facility] Comment on above: Performed By: #### 2 4317-0 #### [facility] [address] [place] [address] RBC (Bld) [#/Vol] 4.22 million/mcL Low 4.30-5.70 [facility] Comment on above: Performed By: #### 2 4317-0 #### [facility] [address] [place] [address] WBC (Bld) [#/Vol] 14.6 thou/mcL High 4.6-10.2 [facility] Comment on above: Performed By: #### 2 4317-0 #### [facility] [address] [place] [address] GFRaaon 09-23-2020 GFR/1.73 sq M predicted among blacks MDRD (S/P/Bld) [Vol rate/Area] 35 mL/min/{1.73_m2} Normal [facility] Comment on above: Result Comment: The MDRD equation has not been validated for those over 70 years, women, patients with serious co-morbid conditions, or with extremes of body size, muscle mass of nutritional status. Performed By: #### 2 4317-0 #### [facility] [address] [place] [address] GFRbbon 09-23-2020 GFR/1.73 sq M predicted among non-blacks MDRD (S/P/Bld) [Vol rate/Area] 29 mL/min/{1.73_m2} Normal [facility] Comment on above: Performed By: #### 2 4321-2 #### [facility] [address] [place] [address] Magnesium Levelon 09-23-2020 Magnesium [Mass/Vol] 1.9 mg/dL Normal 1.8-2.5 [facility] Comment on above: Performed By: #### 6 9405-9 #### [facility] [address] [place] [address] OR Nursingon 09-23-2020 OR Nursing CO GH OR Nursing Rec ord Summary Primary Physician: Demarcus Rubio MD Finalized Date/Time: 09/23/20 07:25:20 Pt. Name: VINH COLBY D.O.B./Sex: 1970 Male Med Rec #: [id number] Physician: Financial #: [id number] Pt. Type: A Room/Bed: [address] [place] [address] Admit/Disch: 09/22/20 06:15:00 - Institution: [facility] [...] Entry 3 Case Attendee Earle MARS , Carol Mcgraw RN, RN , Franklyn Ta Role Performed Primary Surgeon accounts officer First Scrub Time In 09/22/20 08:48:00 09/22/20 [...] Attendee Ludy Lane CRNA, DO , Austin Orelalna MD , Maxim Role Performed Nurse Air Pollution Analyst Resident Anesthesiologist Time In 09/22/20 08:48:00 09/22/20 08:48:00 09/22/20 08:48:00 Time Out 09/22/20 13:15:00 09/22/20 13:15:00 09/22/20 13:15:00 Procedure Repair Hernia Repair Hernia Repair Hernia Ventral(N/A), Removal Ventral(N/A), Removal Ventral(N/A), Removal Foreign Body(N/A) Foreign Body(N/A) Foreign Body(N/A) Attendee Comment Relief Reason Last Modified By: Amrita Whiting RN, RN , Amrita Gibbons RN 09/23/20 07:23:00 09/23/20 07:23:00 09/23/20 07:23:00 Entry 7 Case Attendee Naya Virgen RN Role Performed RN Time In 09/22/20 11:10:00 Time Out 09/22/20 12:40:00 Procedure Repair Hernia Ventral(N/A), Removal Foreign Body(N/A) Attendee Comment Relief Reason Lunch Last Modified By: Amrita Whiting RN 09/23/20 07:23:00 CO GH OR General Case Protection Consultant 1 OR CO GH 06 ASA Class [...] CARR URINE METER DRAIN ROUND HUBLESS 16FR [id number] 15FR FULL FLUTED VIRGIE [id number] Present on Arrival? No No Location BLADDER [...] Size Knee Pneumatic Compression Unit ID Number [id number] GINNA Hose Foot Pump Last Modified By: [...] and Settings Type Monopolar Unit ID Number [id number] Grounding Pad Thigh left lateral Location Last [...] by Surgeon No No Implant Identification Description [id number] covidien GRAFT TISS ALLODERM RTU progrip mesh [id number] THICK [id number] Probate Paralegal covidiInstaGIS ALLERGAN Catalog Number [id number] Lot Number [id number] Serial Number [id number] N/A 1 Implant Site abdomen ABDOMEN Quantity 1 1 Expiration Date 03/05/25 No Expiration Date No No Unique Device Indent (MAKAYLA) Human Readable Machine Readable Manufactured Date Tissue Tissue Implanted No Yes Material Used to N/A 0.9% NACL LOT: Prepare/Process [id number] EXP: Tissue 04/05/2023 Processed By: Franklyn Torres [...] Count Carol Cosby RN, RN , Carol Nicole RN Count Performed with Brian RN , Franklyn Torres RN , Franklyn Torres RN , Franklyn aT Comment Procedure Repair Hernia Repair Hernia Repair Hernia Ventral(N/A), Removal Ventral(N/A), Removal Ventral(N/A), Removal Foreign Body(N/A) Foreign Body(N/A) Foreign Body(N/A) Last Modified By: Amrita Whiting RN, RN , Amrita Gibbons RN 09/23/20 07:23:04 09/23/20 07:23:04 09/23/20 07:23:04 CO [facility] OR Dressing/Packing Entry 1 Entry 2 Dressing Dressing/Packing SPONGE GAUZE 4X4 2PK DRESSING MEDPORE Type [id number] 3.6X12IN [id number] Dressing/Packing Site Tape Medipore Tape 4 in Dressing/Packing Comment Last Modified By: Carol Cosby RN, RN, Dawn M 09/22/20 13:09:34 09/22/20 13:09:34 [facility] OR Temperature Regulation Entry 1 Unit ID [id number] Site UPPER BODY Warm blankets, Warm fluids, [...] SURGICAL PROCEDURE ADDED PER OPERATIVE REPORT ROSETTA PALENCIASURVEYOR INSTRUMENT ASSISTANT PERFORMED CHANGED PER OPERATIVE REPORT ROSETTA PALENCIA Case Comments Finalized By: Amrita Whiting RN Document Signatures Signed By: Carol Cosby RN 09/22/20 13:30 Amrita Whiting RN 09/23/20 07:24 Radhika Minor RN 09/22/20 14:15 Amrita Whiting RN 09/23/20 07:25 Normal [facility] Phosphorus Levelon 0 Phosphate [Moles/Vol] 3.8 mg/dL Normal 2.4-4.7 [facility] Comment on above: Performed By: #### 2 4321-2 #### [facility] [address] [place] [address] Antibody Screen Interpretati onon 09-22-2020 Interpretation and review of laboratory results Negative Normal NEGATIVE-N EGATIVE [facility] Comment on above: Performed By: #### C D:[id number] #### [facility] Blood Type ABO and Rh(D)on 11-22-2019 ABO and Rh group Nom (Bld) OPOS Normal [facility] Comment on above: Performed By: #### 6 9405-9 #### [facility] [address] [place] [address] Glucose POCT (Uploaded)on Glucose [Mass/Vol] 94 mg/dL Normal 70-99 [facility] Comment on above: Result Comment: Nika tment ranges and critical values established by Patient Care Services. All follow-up actions were taken by Patient Care Services. Performed By: #### C D:[id number] #### [facility] PACU I Nursingon 09-22-2020 PACU I Nursing CO GH OR PACU I Nurs ing Record Summary Primary Physician: Demarcus Rubio MD Finalized Date/Time: 09/22/20 15:41:48 Pt. Name: VINH COLBY/Sex: 1970 Male Med Rec #: [id number] Physician: Financial #: [id number] Pt. Type: A Room/Bed: / Admit/Disch: 09/22/20 [...] By: Moreno Orosco RN 09/22/20 15:41 Normal [facility] PreOp Nursingon 09-22-2020 PreOp Nursing CO GH OR PreOp Nursi ng Record Summary Primary Physician: Demarcus Rubio MD Finalized Date/Time: 09/22/20 13:59:46 Pt. Name: ANDREAVINH/Sex: 1970 Male Med Rec #: [id number] Physician: Financial #: [id number] Pt. Type: A Room/Bed: / Admit/Disch: 09/22/20 [...] Signed By: Radhika Minor RN 09/22/20 13:59 [facility] Coronavirus (COVID-19/SARS-C oV-2) [facility] 09-19-2020 Device Identifier Hallock Fusion SARS- CoV-2 assay_FrugalMechanic. EUA 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 Comment on above: Performed By: #### 2 4317-0 #### [facility] [address] [place] [address] ICU N [facility] Comment on above: Performed By: #### 2 4317-0 #### [facility] [address] [place] [address] Illness or injury onset date and time N [facility] Comment on above: Performed By: #### 2 4317-0 #### [facility] [address] [place] [address] Patient was hospitalized because of this condition N [facility] Comment on above: Performed By: #### 2 4317-0 #### [facility] [address] [place] [address] status N [facility] Comment on above: Performed By: #### 2 4317-0 #### [facility] [address] [place] [address] Resides in congregate care setting N [facility] Comment on above: Performed By: #### 2 4317-0 #### [facility] [address] [place] [address] SARS-CoV-2 NOTDET Normal NOTHIT [facility] Comment on above: Result Comment: This test was performed via the Aptima SARS-CoV-2 Assay (HeyBubble), a Nucleic Acid Amplification Test (NAAT), and has been authorized by the FDA under an Emergency Use Authorization (EUA). The assay is validated for nasopharyngeal (RAG WILLOW OPERATOR), nasal, and oropharyngeal (OP) swab specimens. The [...] www.cdc.gov/coronavirus. Performed By: #### 2 4317-0 #### [facility] [address] [place] [address] Symptomatic as defined by CDC 1117 [facility] Comment on above: Performed By: #### 2 4317-0 #### [facility] [address] [place] [address] Antibody Screen Interpretati on09-16-2020 Interpretation and review of laboratory results Negative Normal NEGATIVE-N EGATIVE [facility] Comment on above: Performed By: #### C D:[id number] #### [facility] Basic Metabolic Panelon 09-06 Anion gap [Moles/Vol] 4.0 mmol/L Low 6.0-18.0 [facility] Comment on above: Performed By: #### 2 4321-2 #### [facility] [address] [place] [address] Calcium [Mass/Vol] 9.3 mg/dL Normal 8.9-10.3 [facility] Comment on above: Performed By: #### 2 4321-2 #### [facility] [address] [place] [address] Chloride [Moles/Vol] 108 mmol/L High 98-107 [facility] Comment on above: Performed By: #### 2 4321-2 #### [facility] [address] [place] [address] CO2 [Moles/Vol] 26 mmol/L Normal 22-32 [facility] Comment on above: Performed By: #### 2 4321-2 #### [facility] [address] [place] [address] Creatinine [Mass/Vol] 0.99 mg/dL Normal 0.60-1.30 [facility] Comment on above: Performed By: #### 2 4321-2 #### [facility] [address] [place] [address] Glucose [Mass/Vol] 74 mg/dL Normal 70-99 [facility] Comment on above: Result Comment: U pdated ADA Reference Range A normal fasting glucose concentration is less than 100 mg/dL. An impaired fasting glucose concentration is 100-125 mg/dL. A provisional diagnosis of diabetes mellitus can be made when a fasting glucose concentration is greater than 125 mg/dL. Performed By: #### 2 4321-2 #### [facility] [address] [place] [address] Potassium [Moles/Vol] 3.7 mmol/L Normal 3.6-5.1 [facility] Comment on above: Performed By: #### 2 4321-2 #### [facility] [address] [place] [address] Sodium [Moles/Vol] 138 mmol/L Normal 136-145 [facility] Comment on above: Performed By: #### 2 4321-2 #### [facility] [address] [place] [address] Urea nitrogen (BldV) [Mass/Vol] 15 mg/dL Normal 8-20 [facility] Comment on above: Performed By: #### 2 4321-2 #### [facility] [address] [place] [address] Blood Type ABO and Rh(D)on 11-16-2019 ABO and Rh group Nom (Bld) OPOS Normal [facility] Comment on above: Performed By: #### 8 82-1 #### [facility] [address] [place], [place] CBCon 09-16-2020 Erythrocyte distribution width (RBC) [Entitic vol] 12.9 % Normal 11.0-14.8 [facility] Comment on above: Performed By: #### C [id number] #### [facility] Hematocrit (Bld) [Volume fraction] 47.9 % Normal 39.0-49.0 [facility] Comment on above: Performed By: #### C [id number] #### [facility] Hemoglobin (Bld) [Mass/Vol] 16.7 g/dL Normal 13.5-17.5 [facility] Comment on above: Performed By: #### C [id number] #### [facility] MCH (RBC) [Entitic mass] 30.7 Picograms Normal 27.0-34.0 [facility] Comment on above: Performed By: #### C D:[id number] #### [facility] MCHC (RBC) [Mass/Vol] 34.9 g/dL Normal 32.0-36.0 [facility] Comment on above: Performed By: #### C [id number] #### [facility] MCV (RBC) [Entitic vol] 88.1 fL Normal 80.0-97.0 [facility] Comment on above: Performed By: #### C [id number] #### [facility] Platelet mean volume (Bld) [Entitic vol] 9.5 fL Normal 6.2-12.1 [facility] Comment on above: Performed By: #### C [id number] #### [facility] Platelets (Bld) [#/Vol] 246 thou/mcL Normal 142-424 [facility] Comment on above: Performed By: #### C [id number] #### [facility] RBC (Bld) [#/Vol] 5.44 million/mcL Normal 4.30-5.70 [facility] Comment on above: Performed By: #### C [id number] #### [facility] WBC (Bld) [#/Vol] 7.3 thou/mcL Normal 4.6-10.2 [facility] Comment on above: Performed By: #### C [id number] #### [facility] GFRaaon 09-16-2020 GFR/1.73 sq M predicted among blacks MDRD (S/P/Bld) [Vol rate/Area] mL/min/{1.73_m2} Normal [facility] Comment on above: Result Comment: The MDRD equation has not been validated for those over 70 years, women, patients with serious co-morbid conditions, or with extremes of body size, muscle mass of nutritional status. Performed By: #### 6 9405-9 #### [facility] [address] 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 Normal appendix. [facility] thanks you for the opportunity to care for your patient. Workstation ID: [id number] FINAL REPORT Dictated By: Nuno Cruz MD 01/10/2020 12:54 Assigned Physician: Nuno Cruz MD Reviewed and Electronically Signed By: Nuno Cruz MD 01/10/2020 13:06 Transcribed by: TUHSAR 01/10/2020 12:54 Technologist: TQN Normal [facility] Creatinine POCT [facility] Creatinine [Mass/Vol] 1.2 mg/dL Normal 0.6-1.3 [facility] Comment on above: Performed By: #### C D:[id number] #### [facility] CT SINUS [...] osseous erosion or destructive pattern is apparent. [employer] Workstation ID: [id number] Dictated by: EARLENE YI on MonAug 16, 2019 3:41:09 PM EDT Transcribed by: ANISA GOINS on MonAug 16, 2019 3:51:02 PM EDT Finalized by: EARLENE YI on MonAug 16, 2019 4:15:32 PM EDT [facility] Comment on above: Order Comment: Injur [...] osseous erosion or destructive pattern is apparent. RWA/Prognosis [employer] Workstation ID: [id number] [facility] EXAMINATION: CT SINU S STEALTH WITHOUT [...] Temporomandibular joints are seen and appear satisfactory. [facility] Interface, Rad In Fu ji Speechq [...] osseous erosion or destructive pattern is apparent. [employer] Workstation ID: [id number] [facility] POC Urinalysis Dipstickon Bilirubin Ql (U) Negative Negative [facility] Glucose Ql (U) Negative Normal, Negative mg/dL [facility] Hemoglobin Ql (U) Negative Negative [facility] Interpretation and review of laboratory results Normal [facility] Ketones Ql (U) Negative Negative mg/dL [facility] Leukocyte esterase Test strip Ql (U) Negative Negative [facility] Nitrite Ql (U) Negative Negative [facility] pH (U) 5.5 [pH] [facility] Protein Ql (U) Negative Negative mg/dL [facility] Specific gravity (U) [Rel density] 1.020 [facility] Urobilinogen Qn (U) <2.0 <2.0, 0. 2, Normal, Negative, 1.0, 2.0, <1.0 mg/dL [facility] BMPon 10-27-2018 Anion gap 3 molar [...] Invalid Interpretation Code 9 - 15.5 fL [facility] Platelets Auto #/vol (Bld) 274 10*3/uL Invalid Interpretation Code LAB RBC Auto #/vol (Bld) 6.02 10*6/uL High [facility] WBC Auto #/vol (Bld) 11.33 10*3/uL High D H LAB CT KIDNEY STONEon 10-27-2018 Interface, Rad In ji Speech - 10/27/2018 6:41 PM EST EXAMINATION: CT [...] Normal appendix and unremarkable abdominal gas pattern. [employer] Workstation ID: [id number] Invalid Interpretation Code [facility] EXAMINATION: CT KIDN EY STONE HISTORY: [...] The appendix is normal. Invalid Interpretation Code [employer] [place] 1. There is a small punctate nonobstructive [...] Normal appendix and unremarkable abdominal gas pattern. [facility]/[employer] Workstation ID: [id number] Invalid Interpretation Code Bundle [facility] ECG 12-LEADon 10-27-2018 Wilner Farah 10/27/2018 11:07 [...] Procedure Abnormality Status --------- ------ CBC Auto Differential[[id number]] Normal Final result Please view results for these tests on the individual orders. Invalid Interpretation Code [facility] Work Phone: POC Influenza A/Bon 11-13-19 Interpretation and review of laboratory results Abnormal Invalid Interpretation Code [facility] Work Phone: Rapid Influenza A/B Ag Positive Abnormal Negative [facility] Work Phone: Vital Signs Date Time Vital Sign Value Performing Clinician Jhoana gann 01-10-2020 08:30-0500 BMI (Body Mass Index) 35.45 kg/m2 Kailyn Looney [facility] 01-10-2020 08:30-0500 Body Temperature 99.19 [degF] [facility] 01-10-2020 08:30-0500 Body weight 96.62 kg [facility] 01-10-2020 08:30-0500 BP Diastolic 78 mm[Hg] [facility] 01-10-2020 08:30-0500 BP Systolic 116 mm[Hg] [facility] 01-10-2020 08:30-0500 Height 165.1 cm [facility] 01-10-2020 08:30-0500 Pulse (Heart Rate) 66 /min [facility] 01-10-2020 08:30-0500 Pulse Oximetry 98 % [facility] 12-11-2019 16:08-0500 Body Temperature 97.9 [degF] [facility] 12-11-2019 16:08-0500 BP Diastolic 81 mm[Hg] [facility] 12-11-2019 16:08-0500 BP Systolic 133 mm[Hg] [facility] 12-11-2019 16:08-0500 Pulse (Heart Rate) 80 /min [facility] 12-11-2019 16:08-0500 Pulse Oximetry 99 % [facility] 12-11-2019 16:08-0500 Respiratory Rate 14 /min [facility] 10-11-2019 08:05-0500 Body Temperature 98.49 [degF] [facility] 10-11-2019 08:05-0500 Pulse (Heart Rate) 85 /min [facility] 10-11-2019 08:05-0500 Pulse Oximetry 93 % [facility] 08-16-2019 08:29-0400 BMI (Body Mass Index) 35.28 kg/m2 [facility] 08-16-2019 08:29-0400 Body Temperature 98.2 [degF] [facility] 08-16-2019 08:29-0400 Body weight 96.16 kg [facility]yn [facility] 08-16-2019 08:29-0400 BP Diastolic 82 mm[Hg] Kailyn Looney [facility] 08-16-2019 08:29-0400 BP Systolic 126 mm[Hg] Kailyn Looney [facility] 08-16-2019 08:29-0400 Height 165.1 cm [facility]ailyn [facility] 08-16-2019 08:29-0400 Pulse (Heart Rate) 80 /min [facility]yn [facility] 08-16-2019 08:29-0400 Pulse Oximetry 96 % [facility]ailyn [facility] [facility] 07-19-2019 08:51-0400 BP Diastolic 72 mm[Hg] [facility] 07-19-2019 08:51-0400 BP Systolic 120 mm[Hg] [facility] 07-19-2019 08:29-0400 BMI (Body Mass Index) 35.28 kg/m2 [facility] 07-19-2019 08:29-0400 Body Temperature 98.2 [degF] [facility] 07-19-2019 08:29-0400 Body weight 96.16 kg [facility] 07-19-2019 08:29-0400 Height 165.1 cm [facility] 07-19-2019 08:29-0400 Pulse (Heart Rate) 77 /min [facility] 07-19-2019 08:29-0400 Pulse Oximetry 96 % [facility] 04-05-2019 10:33-0400 BMI (Body Mass Index) 35.61 kg/m2 [facility] 04-05-2019 10:33-0400 Body Temperature 98.4 [degF] [facility] 04-05-2019 10:33-0400 BP Diastolic 79 mm[Hg] [facility] 04-05-2019 10:33-0400 BP Systolic 117 mm[Hg] [facility] 04-05-2019 10:33-0400 Height 165.1 cm [facility] 04-05-2019 10:33-0400 Pulse (Heart Rate) 87 /min [facility] 04-05-2019 10:33-0400 Pulse Oximetry 95 % [facility] 04-05-2019 10:33-0400 Weight 97.07 kg Kailyn Looney [facility] 03-15-2019 12:03-0400 BP Diastolic 94 mm[Hg] Kailyn Looney [facility] 03-15-2019 12:03-0400 BP Systolic 142 mm[Hg] Kailyn Looney [facility] 03-15-2019 11:01-0400 BMI (Body Mass Index) 35.61 kg/m2 [facility] 03-15-2019 11:01-0400 Body Temperature 98.29 [degF] [facility] 03-15-2019 11:01-0400 Height 165.1 cm [facility] 03-15-2019 11:01-0400 Pulse (Heart Rate) 77 /min [facility] 03-15-2019 11:01-0400 Pulse Oximetry 98 % Kailyn Aayush [facility] 03-15-2019 11:01-0400 Weight 97.07 kg [facility] 01-11-2019 07:59-0500 BMI (Body Mass Index) 35.11 kg/m2 [facility] 01-11-2019 07:59-0500 Body Temperature 97.59 [degF] [facility] 01-11-2019 07:59-0500 BP Diastolic 100 mm[Hg] Kailyn Aayush [facility] 01-11-2019 07:59-0500 BP Systolic 154 mm[Hg] [facility] 01-11-2019 07:59-0500 Height 165.1 cm [facility] 01-11-2019 07:59-0500 Pulse (Heart Rate) 84 /min [facility] 01-11-2019 07:59-0500 Pulse Oximetry 98 % Kailyn Looney [facility] 01-11-2019 07:59-0500 Weight 95.71 kg Kailyn Aayush [facility] 12-14-2018 10:59-0500 BMI (Body Mass Index) 35.78 kg/m2 [facility] 12-14-2018 10:59-0500 Body Temperature 97.59 [degF] [facility] 12-14-2018 10:59-0500 BP Diastolic 100 mm[Hg] [facility] 12-14-2018 10:59-0500 BP Systolic 144 mm[Hg] Kailyn Looney [facility] 12-14-2018 10:59-0500 Height 165.1 cm Kailyn Looney [facility] 12-14-2018 10:59-0500 Pulse (Heart Rate) 67 /min Kailyn Looney [facility] 12-14-2018 10:59-0500 Pulse Oximetry 98 % Kailyn Looney [facility] 12-14-2018 10:59-0500 Weight 97.52 kg [facility] 11-02-2018 11:42-0500 BMI (Body Mass Index) 35.61 kg/m2 [facility] 11-02-2018 11:42-0500 Body Temperature 99.19 [degF] [facility] 11-02-2018 11:42-0500 BP Diastolic 100 mm[Hg] [facility] 11-02-2018 11:42-0500 BP Systolic 140 mm[Hg] [facility] 11-02-2018 11:42-0500 Height 165.1 cm [facility] 11-02-2018 11:42-0500 Pulse (Heart Rate) 80 /min [facility] 11-02-2018 11:42-0500 Pulse Oximetry 98 % [facility] 11-02-2018 11:42-0500 Weight 97.07 kg [facility] 10-28-2018 02:30-0500 BP Diastolic 90 mm[Hg] [facility] 10-28-2018 02:30-0500 BP Systolic 166 mm[Hg] [facility] 10-28-2018 02:30-0500 Pulse (Heart Rate) 83 /min [facility] 10-28-2018 02:30-0500 Pulse Oximetry 97 % [facility] 10-28-2018 02:30-0500 Respiratory Rate 14 /min [facility] 10-27-2018 22:34-0500 BMI (Body Mass Index) 34.45 kg/m2 [facility] 10-27-2018 22:34-0500 Body Temperature 99.3 [degF] [facility] 10-27-2018 22:34-0500 Height 165.1 cm [facility] 10-27-2018 22:34-0500 Weight 93.89 kg Chetan Juarez [facility] 10-27-2018 18:00-0500 BP Diastolic 99 mm[Hg] Leslie Chung [facility] 10-27-2018 18:00-0500 BP Systolic 171 mm[Hg] Leslie Chung [facility] 10-27-2018 18:00-0500 Pulse (Heart Rate) 77 /min [facility] 10-27-2018 18:00-0500 Pulse Oximetry 93 % [facility] 10-27-2018 17:30-0500 Respiratory Rate 16 /min [facility] 10-27-2018 15:56-0500 BMI (Body Mass Index) 35.53 kg/m2 [facility] 10-27-2018 15:56-0500 Body Temperature 98.01 [degF] [facility] 10-27-2018 15:56-0500 Height 162.6 cm [facility] 10-27-2018 15:56-0500 Weight 93.89 kg [facility] 08-31-2018 10:36-0400 BMI (Body Mass Index) 35.01 kg/m2 [facility] 08-31-2018 10:36-0400 Body Temperature 98.71 [degF] [facility] 08-31-2018 10:36-0400 BP Diastolic 88 mm[Hg] [facility] 08-31-2018 10:36-0400 BP Systolic 144 mm[Hg] [facility] 08-31-2018 10:36-0400 Height 165.1 cm [facility] 08-31-2018 10:36-0400 Pulse (Heart Rate) 81 /min [facility] 08-31-2018 10:36-0400 Pulse Oximetry 94 % [facility] 08-31-2018 10:36-0400 Weight 95.44 kg Kailyn Looney [facility] 05-25-2018 09:03-0400 BMI (Body Mass Index) 36.44 kg/m2 [facility] 05-25-2018 09:03-0400 Body Temperature 98.91 [degF] Kailyn Looney [facility] 05-25-2018 09:03-0400 BP Diastolic 80 mm[Hg] Kailyn Looney [facility] 05-25-2018 09:03-0400 BP Systolic 128 mm[Hg] Kailyn Looney [facility] 05-25-2018 09:03-0400 Height 165.1 cm Kailyn Looney [facility] 05-25-2018 09:03-0400 Pulse (Heart Rate) 71 /min Kailyn Looney [facility] 05-25-2018 09:03-0400 Pulse Oximetry 98 % Kailyn Looney [facility] 05-25-2018 09:03-0400 Weight 99.34 kg Kailyn Looney [facility] 12-15-2017 09:18-0500 BMI (Body Mass Index) 34.45 kg/m2 Kailyn Looney [facility] Work Phone: 12-15-2017 09:18-0500 Body Temperature 98.01 [degF] Kailyn Looney [facility] Work Phone: 12-15-2017 09:18-0500 BP Diastolic 86 mm[Hg] Kailyn Looney [facility] Work Phone: 12-15-2017 09:18-0500 BP Systolic 124 mm[Hg] Kailyn Looney [facility] Work Phone: 12-15-2017 09:18-0500 Height 165.1 cm Kailyn Looney [facility] Work Phone: 12-15-2017 09:18-0500 Pulse (Heart Rate) 71 /min Kailyn Looney [facility] Work Phone: 12-15-2017 09:18-0500 Pulse Oximetry 98 % Kailyn Looney [facility] Work Phone: 12-15-2017 09:18-0500 Weight 93.89 kg Kailyn Looney [facility] Work Phone: 11-13-2017 12:57-0500 BMI (Body Mass Index) 34.28 kg/m2 Kailyn Looney [facility] Work Phone: 11-13-2017 12:57-0500 Body Temperature 99.19 [degF] [facility]: 11-13-2017 12:57-0500 BP Diastolic 80 mm[Hg] [facility]: 11-13-2017 12:57-0500 BP Systolic 122 mm[Hg] Kailyn MarreroJoota Work Phone: 11-13-2017 12:57-0500 Height 165.1 cm [facility] Phone: 11-13-2017 12:57-0500 Pulse (Heart Rate) 76 /min [facility] Phone: 11-13-2017 12:57-0500 Pulse Oximetry 98 % [facility] Phone: 11-13-2017 12:57-0500 Weight 93.44 kg [facility] Phone: 08-18-2017 11:10-0400 BMI (Body Mass Index) 34.28 kg/m2 [facility] Phone: 08-18-2017 11:10-0400 Body Temperature 98.6 [degF] [facility]: 08-18-2017 11:10-0400 BP Diastolic 80 mm[Hg] [facility]: 08-18-2017 11:10-0400 BP Systolic 124 mm[Hg] Kailyn MarreroJoota Work Phone: 08-18-2017 11:10-0400 Height 165.1 cm Kailyn MarreroJoota Work Phone: 08-18-2017 11:10-0400 Pulse (Heart Rate) 79 /min Kailyn MarreroJoota Work Phone: 08-18-2017 [id number] Pulse Oximetry 98 % Kailyn Looney [facility] Work Phone: 08-18-2017 [id number] Weight 93.44 kg Kailyn Looney [facility] Work Phone: Encounters Encounter Date Encounter Type Care Provider Facility Start: 07-05-2025 End: 07-05-[address] Kailyn Ibrahim MD Work Phone: -Laboratory Start: 07-05-2025 End: 07-05-[address] Kailyn Ibrahim MD -Laboratory Work Phone: Start: 07-05-2025 End: 07-05-2025 ambulatory Kailyn Ibrahim Facility:[facility] Start: 07-03-2025 End: 07-03-[address] Kailyn Ibrahim MD Work Phone: -Laboratory Start: 07-03-2025 End: 07-03-[address] Kailyn Ibrahim MD -Laboratory Work Phone: Start: 07-03-2025 End: 07-03-2025 ambulatory Kailyn Ibrahim Facility:[facility] Start: 05-29-2025 End: 05-29-[address] Kailyn Ibrahim MD Work Phone: -Laboratory Start: 05-29-2025 End: 05-29-[address] Kailyn Ibrahim MD -Laboratory Work Phone: Start: 05-29-2025 End: 05-29-2025 ambulatory Kailyn Ibrahim Facility:[facility] Start: 11-28-2024 End: 11-28-2024 ambulatory Kailyn Ibrahim Facility:[facility] Start: 08-30-2024 End: 08-30-2024 ambulatory [facility] Cely Ibrahim Facility:[facility] Start: 05-17-2023 End: 05-17-2023 ambulatory [facility] Work Phone: Start: 05-17-2023 End: 05-17-2023 Patient encounter procedure [facility] Start: 12-12-2022 ambulatory KAILYN LOONEY [facility] Start: 05-20-2022 End: 05-20-2022 Patient encounter procedure [facility] Start: 01-19-2021 End: 01-19-2021 Orders Only Talita Aragon Ann Marie Work Phone: [facility] Start: 05-12-2020 End: 05-12-2020 Patient encounter procedure SANDRA ALVARADO MSMARKUS [facility] Start: 01-17-2020 Patient encounter procedure KAILYN LOONEY [facility] Start: 01-10-2020 End: 01-10-2020 Periodic preventive med est patient 40-64yrs Kailyn Looney Work Phone: [facility] Comment on above: Physical exam (Prima ry Dx); Diabetes mellitus screening; Lipid screening; Prostate cancer screening Start: 01-07-2020 End: 01-07-2020 Postop follow up visit related to original px Earlene Sandro Cowan Work Phone: [facility] Comment on above: Hypertrophy of both inferior nasal turbinates (Primary Dx); Nasal obstruction without choanal atresia; History of nasal septoplasty Start: 12-31-2019 End: 12-31-2019 Postop follow up visit related to original px Earlene Cowan Work Phone: [facility] Comment on above: Hypertrophy of both inferior nasal turbinates (Primary Dx); Nasal obstruction without choanal atresia; History of nasal septoplasty; Chronic rhinitis Start: 12-24-2019 End: 12-24-2019 Postop follow up visit related to original px Earlene Cowan Work Phone: [facility] Comment on above: Hypertrophy of both inferior nasal turbinates (Primary Dx); Nasal obstruction without choanal atresia; History of nasal septoplasty Start: 12-17-2019 End: 12-17-2019 Postop follow up visit related to original px Earlene Cowan Work Phone: [facility] Comment on above: DNS (deviated nasal septum) (Primary Dx); Hypertrophy of both inferior nasal turbinates; Nasal obstruction without choanal atresia; History of nasal septoplasty Start: 12-13-2019 End: 12-13-2019 Postop follow up visit related to original px Earlene Cowan Work Phone: [facility] Comment on above: DNS (deviated nasal septum) (Primary Dx); Hypertrophy of both inferior nasal turbinates; Nasal obstruction without choanal atresia; History of nasal septoplasty Start: 12-11-2019 End: 12-11-2019 [facility] Start: 12-11-2019 End: 12-11-2019 Subsequent hospital visit by physician Earlene Cowan Work Phone: [facility] Comment on above: Acute post-operative pain (Primary Dx); Nasal obstruction without choanal atresia; Deviated septum; Injury of nose, sequela; Hypertrophy of both inferior nasal turbinates Start: 11-29-2019 End: 11-29-2019 [facility] Start: 10-11-2019 End: 10-11-2019 Office outpatient visit 15 minutes Earlene Cowan Work Phone: [facility] Comment on above: DNS (deviated nasal septum) (Primary Dx); Hypertrophy of both inferior nasal turbinates; Nasal obstruction without choanal atresia Start: 08-23-2019 End: 08-27-2019 Patient encounter procedure KAILYN LOONEY [facility] Start: 08-16-2019 End: 08-17-2019 [facility] Start: 08-16-2019 End: 08-16-2019 Subsequent hospital visit by physician Earlene Cowan Work Phone: [facility] Comment on above: Deviated nasal septu m; Chronic sinusitis, unspecified location Start: 08-16-2019 End: 08-16-2019 Office outpatient visit 25 minutes Kailyn Looney Work Phone: [facility] Comment on above: Erectile dysfunction , unspecified erectile dysfunction type (Primary Dx); Urinary frequency; Hypertension, essential; Hypertriglyceridemia; Androgen deficiency; Motion sickness, initial encounter Start: 07-19-2019 End: 07-19-2019 Office outpatient visit 25 minutes Kailyn Alvarajni Work Phone: [facility] Comment on above: Hypertension, essent ial (Primary Dx); Trigger middle finger of left hand; Hypertriglyceridemia; Need for hepatitis A immunization Start: 04-05-2019 End: 04-05-2019 Office outpatient visit 10 minutes Kailyn Alvarajni Work Phone: [facility] Comment on above: Hypertension, essent ial (Primary Dx); Erectile dysfunction, unspecified erectile dysfunction type Start: 03-15-2019 End: 03-15-2019 Office outpatient visit 15 minutes Kailyn Alvarajni Work Phone: [facility] Comment on above: Elevated blood press ure reading with diagnosis of hypertension Start: 01-11-2019 End: 01-11-2019 Office outpatient visit 25 minutes Kailyn Alvarajni Work Phone: [facility] Comment on above: Elevated blood press ure reading in office with diagnosis of hypertension (Primary Dx); Witnessed episode of apnea; Habitual snoring Start: 12-14-2018 End: 12-14-2018 Periodic preventive med est patient 40-64yrs Kailyn Alvarajni Work Phone: [facility] Comment on above: Physical exam (Prima ry Dx); Diabetes mellitus screening; Prostate cancer screening; Lipid screening; Medication side effect; Hypertension, essential Start: 11-02-2018 End: 11-02-2018 Office outpatient visit 25 minutes Kailyn Alvarajni Work Phone: [facility] Comment on above: Acute left-sided low back pain without sciatica (Primary Dx); Hypertension, essential Start: 10-27-2018 End: 10-28-2018 Emergency department patient visit Chetan Juarez Work Phone: [facility] Comment on above: Musculoskeletal back pain (Primary Dx) Start: 10-27-2018 End: 10-27-2018 Emergency department patient visit Leslie Chung Work Phone: [facility] Comment on above: Left flank pain (Ghada ezio Dx); Elevated blood pressure reading; Hypertension, unspecified type Start: 08-31-2018 End: 08-31-2018 Office outpatient visit 25 minutes Kailyn Looney Work Phone: [facility] Comment on above: Hypertension, essent ial (Primary Dx); Erectile dysfunction, unspecified erectile dysfunction type; Hypertriglyceridemia; Androgen deficiency Start: 05-25-2018 End: 05-25-2018 Office outpatient visit 15 minutes Kailyn Looney Work Phone: [facility] Start: 12-15-2017 Prev visit, est, age 40-64 Darshan n Gregg Looney Work Phone: [facility] Start: 11-13-2017 Office/outpatient vi sit, est, level 3 Kailyn Looney Work Phone: [facility] Start: 08-18-2017 Office outpatient vi sit 15 minutes Kailyn Looney Work Phone: [facility] Procedures Date Procedure Procedure Detail Performing Clinician Start: 07-05-[address] Kailyn siddiqi MD Work Phone: Comment on above: According to the National Academy of Cli nical Biochemistry,the reference interval for Thyroglobulin (TG) should berelated to euthyroid patients and not for patients whounderwent thyroidectomy. TG reference intervals for thesepatients depend on the residual mass of the thyroid tissueleft after surgery. Establishing a post-operative baselineis recommended. The assay limit of quantitation is 0.1ng/mLThyroglobulin measured by Joanne Davis [employer] Start: 07-05-[address] Kailyn Ibrahim MD Work Phone: Comment on above: Thyroglobulin Antibody measured by Angel jeff P2iMethodologyIt should be noted that the presence of thyroglobulinantibodies may not be pathogenic nor diagnostic, especiallyat very low levels. The assay associate manager has found thatfour percent of individuals without evidence of thyroiddisease or autoimmunity will have positive TgAb levels upto 4 IU/mL. Start: 05-29-2025 Urnls dip stick/tablet reagent auto microscopy Dr. Kailyn Ibrahim MD Work Phone: Start: 05-15-2020 Colonoscopy Talita Jesus Start: 08-16-2019 Ct maxillofacial w/o contrast material Earlene Cowan Work Phone: Start: 08-16-2019 Urinalysis macro (dipstick) panel - Urine Kailyn Looney Work Phone: Start: 01-11-2019 Adult depression screening assessment Kailyn Looney Start: 10-28-2018 End: 10-28-2018 [...] Phone: Start: 10-27-2018 End: 10-27-2018 LAVENDER TOP Laysa K Lurye Work Phone: Start: 10-27-2018 End: 10-27-2018 LIGHT BLUE TOP Alysa K Lurye Work Phone: Start: 10-27-2018 End: 10-27-2018 LIGHT GREEN TOP Alysa K Lurye Work Phone: Start: 10-27-2018 End: 10-27-2018 MINT GREEN TOP Alysa K Lurye Work Phone: Start: 10-27-2018 End: 10-27-2018 RAINBOW DRAW Alysa K Lurye Work Phone: Start: 12-15-2017 Adult depression screening assessment Leslie Chung Plan of Treatment Date Care Activity Detail Author Start: 05-15-2030 Screening for malignant neoplasm of colon [facility] Start: 01-16-2022 Prostate specific antigen measurement PSA Level [facility] Start: 01-09-2021 History and physical examination, annual for health maintenance Wellness Visit [facility] Start: 03-20-2020 End: 03-20-2020 Office Visit 03/20/2020 Office Visit Otolaryngology Earlene Cowan, DO [address] [facility] [address] [place] [address] [phone] [facility] Start: 02-08-2020 Administration of herpes zoster vaccine Zoster Vaccines (1 of 2) [facility] Start: 02-08-2020 Screening for malignant neoplasm of colon [facility] Start: 01-12-2020 Depression screening using PHQ-9 (Patient Health Questionnaire 9) score DEPRESSION SCREENING (PHQ9) [facility] Start: 01-12-2020 Screening for substance abuse SUBSTANCE ABUSE SCREENING (AUDIT-C) [facility] Start: 01-10-2020 End: 01-10-2020 Office Visit 01/10/2020 Office Visit Primary Care Kailyn Looney, DO [address] [facility] [address] [place] [address] [phone] [facility] Start: 01-07-2020 End: 01-07-2020 Follow-Up 01/07/2020 Follow-Up Otolaryngology Earlene Cowan, DO [address] [facility] [address] [place] [address] [phone] [facility] Start: 12-31-2019 End: 12-31-2019 Follow-Up 12/31/2019 Follow-Up Otolaryngology Earlene Cowan, DO [address] [facility] [address] [place] [address] [phone] [facility] Start: 12-25-2019 End: 12-25-2019 Clinical Support 12/25/2019 Clinical Support Otolaryngology Anisa Villaseñor AuD [facility] Start: 12-24-2019 End: 12-24-2019 Follow-Up 12/24/2019 Follow-Up Otolaryngology Earlene Cowan, DO [address] [facility] [address] [place] [address] [phone] [facility] Start: 12-17-2019 End: 12-17-2019 Follow-Up 12/17/2019 Follow-Up OtolaryngologEarlene Hankins, DO [address] [facility] [address] [place] [address] [phone] [facility] Start: 12-14-2019 History and physical examination, annual for health maintenance Wellness Visit [facility] Start: 12-13-2019 End: 12-13-2019 Follow-Up 12/13/2019 Follow-Up Otolaryngology Earlene Cowan, DO [address] [facility] [address] [place] [address] [phone] [facility] Start: 09-06-2019 End: 09-06-2019 Office Visit 09/06/2019 Office Visit Primary Care Kailyn Looney, DO [address] [facility] [address] [place] [address] [phone] [facility] Primary Care Physicians Start: 08-23-2019 End: 08-23-2019 Office Visit 08/23/2019 Office Visit Otolaryngology Leslie Buck, DO [address] [facility] [address] [place] [address] [phone] [facility] Start: 08-02-2019 End: 08-02-2019 Office Visit 08/02/2019 Office Visit Otolaryngology Earlene Cowan, DO [address] [facility] [address] [place] [address] [phone] [facility] Start: 07-07-2019 Influenza vaccination given [facility] Start: 04-05-2019 End: 04-05-2019 Office Visit 04/05/2019 Office Visit Primary Care Kailyn Looney, DO [address] [facility] [address] [place] [address] [phone] [facility] Primary Care Physicians Start: 02-22-2019 End: 02-22-2019 Office Visit 02/22/2019 Office Visit Primary Care Kailyn Looney, DO [address] [facility] [address] [place] [address] [phone] [facility] Primary Care Physicians Start: 01-11-2019 End: 01-11-2019 Office Visit 01/11/2019 Office Visit Primary Care Kailyn Looney DO [address] [address] [phone] [facility] Primary Care Physicians Start: 12-15-2018 Adult depression screening assessment DEPRESSION SCREENING (PHQ9) [facility] Start: 12-15-2018 Depression screening using PHQ-9 (Patient Health Questionnaire 9) score DEPRESSION SCREENING (PHQ9) [facility] Start: 12-15-2018 Screening for substance abuse SUBSTANCE ABUSE SCREENING (AUDIT-C) [facility] Start: 12-15-2018 SUBSTANCE ABUSE SCREENING (AUDIT-C) SUBSTANCE ABUSE SCREENING (AUDIT-C) [facility] Start: 12-14-2018 End: 12-14-2018 Ambulatory 12/14/2018 Office Visit Primary Care Kailyn Looney DO [address] [address] [phone] [facility] Primary Care Physicians Start: 07-07-2018 Influenza vaccination SEQUENTIAL INFLUENZA VACCINE (#1) [facility] Start: 07-07-2018 Influenza vaccination given SEQUENTIAL INFLUENZA VACCINE (#1) [facility] Start: 07-07-2017 Influenza vaccination SEQUENTIAL INFLUENZA VACCINE (#1) [facility] Work Phone: Start: 02-08-1988 Hepatitis C antibody, confirmatory test Hepatitis C Screening [facility] Start: 1986 COVID-19 Vaccine (1 of 2) COVID-19 Vaccine (1 of 2) [facility] Start: 1985 HIV screening HIV Screening [facility] Start: 1982 Adolescent depression screening assessment Depression Screening (PHQ9) [facility] Start: 1970 Prostate specific antigen measurement PSA Level [facility] Start: 1970 Tetanus vaccination [facility] Work Phone: End: 08-16-2020 Bacteria identified Aer cx Nom (Unsp spec) Urine Aerobic Culture Microbiology Routine Urinary frequency 1 Occurrences starting 08/16/2019 until 08/16/2020 [facility] Comment on above: 1 Occurrences starting 08/16/2019 until 08/16/2020 Bacteria identified Aer cx Nom (Unsp spec) Urine Aerobic Culture Microbiology Routine Urinary frequency 08/16/2019 9:30 AM EDT [facility] End: 12-15-2019 Complete blood count with white cell differential, manual CBC and Differential Routine Physical exam 1 Occurrences starting 12/14/2018 until 12/15/2019 [facility] Comment on above: 1 Occurrences starting 12/14/2018 until 12/15/2019 Complete blood count with white cell differential, manual CBC and Differential Routine Physical exam 12/14/2018 11:54 AM EST [facility] End: 01-10-2021 Complete blood count with white cell differential, manual CBC and Differential Lab Routine Physical exam 1 Occurrences starting 01/10/2020 until 01/10/2021 [facility] Comment on above: 1 Occurrences starting 01/10/2020 until 01/10/2021 End: 08-16-2020 Complete blood count with white cell differential, manual CBC and Differential Lab Routine Hypertension, essential 1 Occurrences starting 08/16/2019 until 08/16/2020 [facility] Comment on above: 1 Occurrences starting 08/16/2019 until 08/16/2020 End: 12-15-2019 Comprehensive metabolic 2000 panel Comprehensive Metabolic Panel Routine Physical exam 1 Occurrences starting 12/14/2018 until 12/15/2019 [facility] Comment on above: 1 Occurrences starting 12/14/2018 until 12/15/2019 End: 01-10-2021 Comprehensive metabolic 2000 panel Comprehensive Metabolic Panel Lab Routine Physical exam 1 Occurrences starting 01/10/2020 until 01/10/2021 [facility] Comment on above: 1 Occurrences starting 01/10/2020 until 01/10/2021 End: 08-16-2020 Comprehensive metabolic 2000 panel Comprehensive Metabolic Panel Lab Routine Hypertension, essential 1 Occurrences starting 08/16/2019 until 08/16/2020 [facility] Comment on above: 1 Occurrences starting 08/16/2019 until 08/16/2020 End: 12-16-2018 Comprehensive metabolic panel [AGGREGATE] Comprehensive Metabolic Panel Routine Physical exam 1 Occurrences starting 12/15/2017 until 12/16/2018 [facility] Work Phone: Comprehensive metabo lic panel [AGGREGATE] [facility] Work Phone: CT Angiogram Aorta Chest Abdomen Pelvis CT Angiogram Aorta Chest Abdomen Pelvis GERSON 10/28/2018 12:26 AM EST [facility] End: 12-16-2018 HbA1c Hemoglobin A1c Routine Diabetes mellitus screening 1 Occurrences starting 12/15/2017 until 12/16/2018 [facility] Work Phone: HbA1c [facility] Work Phone: End: 01-10-2021 HbA1c (Bld) [Mass fraction] Hemoglobin A1c Lab Routine Diabetes mellitus screening 1 Occurrences starting 01/10/2020 until 01/10/2021 [facility] Comment on above: 1 Occurrences starting 01/10/2020 until 01/10/2021 End: 12-15-2019 Hemoglobin A1c/Hemoglobin.total mass fraction (Bld) Hemoglobin A1c Routine Diabetes mellitus screening 1 Occurrences starting 12/14/2018 until 12/15/2019 [facility] Comment on above: 1 Occurrences starting 12/14/2018 until 12/15/2019 End: 12-15-2019 Lipid 1996 panel Lipid Panel Routine Lipid screening 1 Occurrences starting 12/14/2018 until 12/15/2019 [facility] Comment on above: 1 Occurrences starting 12/14/2018 until 12/15/2019 Lipid 1996 panel Lipid Panel Rou maryjo Lipid screening 12/14/2018 11:54 AM EST [facility] End: 01-10-2021 Lipid 1996 panel Lipid Panel Lab Routine Lipid screening 1 Occurrences starting 01/10/2020 until 01/10/2021 [facility] Comment on above: 1 Occurrences starting 01/10/2020 until 01/10/2021 End: 08-16-2020 Lipid 1996 panel Lipid Panel Lab Routine Hypertriglyceridemia 1 Occurrences starting 08/16/2019 until 08/16/2020 [facility] Comment on above: 1 Occurrences starting 08/16/2019 until 08/16/2020 End: 12-16-2018 Lipid panel Lipid Panel Routine Lipid screening 1 Occurrences starting 12/15/2017 until 12/16/2018 [facility] Work Phone: Lipid panel Lipid Panel Rout ine Lipid screening 12/15/2017 10:08 AM EST [facility] Work Phone: Procedure on tissue specimen [facility] Comment on above: Release Upon Ordering for 1 Occurrences starting 12/11/2019, 1 completed End: 01-09-2021 Prostate specific Ag [Mass/Vol] PSA, Screen Lab Routine Prostate cancer screening 1 Occurrences starting 01/10/2020 until 01/09/2021 [facility] Comment on above: 1 Occurrences starting 01/10/2020 until 01/09/2021 End: 08-16-2020 Testosterone Free [Mass/Vol] Testosterone, Total and Free (Calculated) Lab Routine Androgen deficiency 1 Occurrences starting 08/16/2019 until 08/16/2020 [facility] Comment on above: 1 Occurrences starting 08/16/2019 until 08/16/2020 Immunizations Immunization Date Immunization Notes Care Provider Zulema piper 08-13-2019 Influenza, injectabl e, Madin Heather Canine Kidney, preservative free, quadrivalent Earlene Klapchar [facility] 07-19-2019 hepatitis A vaccine, adult dosage Abbie ireland Cocumelli [facility] 07-19-2019 hepatitis A vaccine, unspecified formulation Kailyn Cocumelli [facility] 02-15-2019 hepatitis A vaccine, adult dosage Abbie ireland Cocumelli [facility] 01-16-2019 hepatitis A vaccine, adult dosage Prince arellano Klapchar [facility] 08-18-2017 influenza, injectabl e, quadrivalent, preservative free Earlene Klapchar [facility] 07-26-2016 influenza, injectabl e, quadrivalent, preservative free Earlene Klapchar [facility] Payers Date Payer Category Payer Self-pay [id number] 2024 Unknown [id number] 2015 Unknown [id number] 2015 Unknown xxxxxxxxx [id number] 2015 Unknown [facility] HMO/BAPTISTE CE PLUS/EFREM/EFREM PLUS [id number] 2015-Present [id number] 1970 Unknown [id number] 2.16.840.1.242843.3.579.2.9 02 1970 Unknown [id number] .[id number] 02 1970 Unknown [id number] 2.16.840.1.390256.3.579.2.9 02 1970 Unknown [id number] 2.16.840.1.046231.3.579.2.9 00 1970 Unknown [id number] 2.16.840.1.885694.3.579.2.9 00 1970 Unknown [id number] 2.16.840.1.127562.3.579.2.9 00 1970 Unknown [id number] 2.16.840.1.461757.3.579.2.9 03 Private Health Insurance [id number] Unknown [id number] [id number] 62 Unknown [id number] 2.16.840.1.803950.3.579.2.4 62 Unknown [id number] 2.16.840.1.893256.3.579.2.4 62 Unknown [id number] [id number] 62 Unknown [id number] 2.16.840.1.388768.3.579.2.4 62 Social History Date Type Detail Facility Start: 12-15-2017 End: 08-16-2019 Tobacco smoking status [facility] Never smoker [facility] Work Phone: Sex Assigned At Not on file [facility] Work Phone: Start: 01-01-2016 Alcohol Comment [facility] Start: 07-19-2019 End: 08-16-2019 Alcohol intake Current drinker of alcohol (finding) [facility] Start: 07-19-2019 History SDOH Social Connections Phone 5 [facility] Start: 07-19-2019 History SDOH Food Worry 1 [facility] Start: 08-28-2020 Tobacco use and exposure Never used [facility] Start: 1970 Sex Assigned At Male [facility] Tobacco smoking stat [facility] Unknown if ever smoked [facility] Work Phone: Medical Equipment Procedure Code Equipment Code Equipment Origin al Text Equipment Identifier Dates Hemostat 4 X 8in Surgicel - Sn/A [id number] Start: 12-11-2019 Evaluation note Note Date & Type Note Facility Evaluation note No assessment information availa ble [facility] Work Phone: Reason for referral (narrative) Note Date & Type Note Facility Reason for referral (narrative) No reason for referral information available [facility] Work Phone: Assessments Note Patient: VINH COLBY Wilner RN: (COL)-[id number] Age: 50 years Sex: Male : 1970 [...] Chronic sinusitis, unspecified location Discharge Instructions * SheldonAllan arndttiara Michael, DO - 10/27/2018 Formatting of this note [...] your doctor if you can take an euig-cvg-dtrfiyy pain medicine, such as acetaminophen (Tylenol), ibuprofen [...] Log into your personal health record on [email or web address] and enter S191 in the Education box to learn more about Flank Pain: Care Instructions. Current as of: July 29, 2018 Content Version: 11.9 9412-8716 [employer]. Care instructions adapted under license by your healthcare professional. If you have questions about a medical condition or this instruction, always ask your healthcare professional. [employer] disclaims any warranty or liability for your use of this information. in this encounter* Jace Collado, - 10/28/2018 Formatting of this note may [...] your doctor if you can take an fhaa-rjt-cymlxnu medicine. Take short walks several times a [...] Log into your personal health record on [email or web address] and enter I594 in the Education box to learn more about Back Pain: Care Instructions. Current as of: July 26, 2018 Content Version: 11.9 7544-6061 [employer]. Care instructions adapted under license by your healthcare professional. If you have questions about a medical condition or this instruction, always ask your healthcare professional. [employer] disclaims any warranty or liability for your [...] Log into your personal health record on [email or web address] and enter Y090 in the Education box to learn more about Back Stretches: Exercises. Current as of: July 26, 2018 Content Version: 11.9 8680-4516 [employer]. Care instructions adapted under license by your healthcare professional. If you have questions about a medical condition or this instruction, always ask your healthcare professional. [employer] disclaims any warranty or liability for your [...] not operate a vehicle (car, bike, motorcycle, pad extractor tender) machinery or power tools. Do not make [...] to call your physician or the hospital composing machine operator/tender if you have any questions, and they [...] [facility] 12/24/2019 9:15 AM Earlene Cowan DO [facility] 12/31/2019 9:15 AM Earlene Jo DO SOURAV Cowan [facility] documented in this encounter Instructions * Patient Instructions - Kailyn Looney DO - 11/02/2018 12:27 PM EST Low Back [...] infront of you at the same time. Bwsc-nk-uwczg exercise 1. Lie on your back with [...] Log into your personal health record on [email or web address] and enter Z938 in the Education box to learn more about Low Back Pain: Exercises. Current as of: July 26, 2018 Content Version: 11.9 3476-2349 [employer]. Care instructions adapted under license by your healthcare professional. If you have questions about a medical condition or this instruction, always ask your healthcare professional. 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 He has tried muscle relaxant and NSAIDs [...] Coronary artery disease Mother at 66 [place] No Known Allergies The following portions of [...] the medications. This note was generated using [employer] voice recognition software in an effort to [...] Coronary artery disease Mother at 66 [place] No Known Allergies The following portions of [...] the medications. This note was generated using [employer] voice recognition software in an effort to [...] Coronary artery disease Mother at 66 [place] No Known Allergies The following portions of [...] the medications. This note was generated using [employer] voice recognition software in an effort to [...] Coronary artery disease Mother at 66 of [place] No Known Allergies The following portions of [...] the medications. This note was generated using [employer] voice recognition software in an effort to [...] Coronary artery disease Mother at 66 of [place] No Known Allergies The following portions of [...] the medications. This note was generated using [employer] voice recognition software in an effort to [...] Coronary artery disease Mother at 66 [place] No Known Allergies The following portions of [...] the medications. This note was generated using [employer] voice recognition software in an effort to [...] More than three times a week Attends methodist service: Not on file Active member of club or organization: Not on file Attends meetings of clubs or organizations: Not on file Relationship status: Not on file Other Topics Concern Not on file Social History Narrative Not on file Family History Problem Relation Age of Onset COPD Mother Coronary artery disease Mother at 66 [place] Past Surgical History: Procedure Laterality Date HERNIA [...] clinic visit. Patient will contact our surgical technician nurse to set up a time. 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 We have instructed him to blow his nose but to avoid manipulating the anterior part of the nose forcefully. documented in this encounter* Earlene Cowan, - 12/31/2019 9:35 AM EST Subjective Patient [...] Coronary artery disease Mother at 66 [place] No Known Allergies The following portions of [...] the medications. This note was generated using Phot[employer]ays voice recognition software in an effort to [...] Coronary artery disease Mother at 66 [place] No Known Allergies The following portions of [...] the medications. This note was generated using Phot[employer] voice recognition software in an effort to expedite communication. Please excuse results in grammatical or wording errors. 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 Advance Directives and Livin g Will Advance Directives and Livin g Will 12/11/2019 9:15 AM Documents on File Type Date Recorded 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 Advance Directives and Livin g Will 08/16/2019 11:01 PM Reason for Referral Status Reason Specialty Diagnoses / Procedures Referred By Contact Referred To Contact Authorized Sleep Medicine Diagnoses Witnessed episode of apnea Habitual snoring Kailyn Looney DO [address] [facility] [address] [place] [address] Status Reason Specialty Diagnoses / Procedures Referre d By Contact Referred To Contact Closed Radiology Diagnoses Deviated nasal septum Chronic sinusitis, unspecified location Procedures CT Sinus Stealth Without Contrast Earlene Cowan, DO [address] [facility] [address] [place] [address] Summary Purpose Family History No Family History Records FoundNo Family History Records FoundNo Family History Records FoundNo Family History Records FoundNo Family History Records Found Procedure Findings Note Patient: ALLA COLBYMichelle Darby RN: ([facility])-[id number] Age: 50 years Sex: Male : 1970 [...] transversus abdominis release. SURGEON: Demarcus Rubio MD PEER SUPPORT SPECIALIST: Austin Zavala DO ANESTHESIA: General. ESTIMATED BLOOD [...] summary document to your follow up appointments. [facility] 09/27/20 11:21 [address] [place]. [address] PATIENT INFORMATION Name: VINH COLBY Address: [address] [place] [id number] Age: 50 Years Phone: [phone] : 1970 12:00 MRN: ([id number] Sex: Male Race: White Ethnicity: Not Hispan/Lat Admitted From: Clinic or [facility] Medical Service: Surgery Nurse Unit/Bed: (CT) 5F 5210-01 Admit Date: 09/22/2020 06:15 PCP: Physician, PCP Unknown PHYSICIANS INVOLVED WITH CARE Attending Physicians: Demarcus Rubio MD - Surgery Admitting Physician: None found Primary Care Physician:Physician, PCP Unknown,Family Practice,,, - Consults: None found Problems Active Incisional hernia without obstruction or gangrene HTN (hypertension) Allergies No Known Medicat (more content not included)... Note Patient: VINH COLBY RN: ([id number] Age: 50 years Sex: Male : 1970 [...] Procedures Performed PROCEDURES Ventral herniorrhaphy (SNOMED CT [id number]) performed by Earle MARS (more content not included)... Note Patient: VINH COLBY Wilner RN: (COL)-[id number] Age: 50 years Sex: Male : 1970 [...] 00:20) Diastolic BP 144/82 (09/26 15:00) 165/118 (11/22 00:20) UOP: voiding 600 / 400 NG: removed RUTHY R (retrorectus): - (SS) RUTHY L (subq): - (SS) PHYSICAL EXAM: GEN: (more content not included)... Hospital Course Note CLINICAL SUMMARY Please take this summary document to your follow up appointments. [facility] 09/27/20 11:21 [address] [place]. [address] PATIENT INFORMATION Name: VINH COLBY Address: [address] [place] [address] [place] [address] Age: 50 Years Phone: [phone] : 1970 12:00 MRN: ([facility])-[id number] Sex: Male Race: White Ethnicity: Not Hispan/Lat Admitted From: Clinic or [facility] Medical Service: Surgery Nurse Unit/Bed: (CT) [facility] 5210- Admit Date: 09/22/2020 06:15 PCP: Physician, PCP Unknown PHYSICIANS INVOLVED WITH CARE Attending Physicians: Demarcus Rubio MD - Surgery Admitting Physician: None found Primary Care Physician:Physician, PCP Unknown,Family Practice,,, - Consults: None found Problems Active Incisional hernia without obstruction or gangrene HTN (hypertension) Allergies No Known Medicat (more content not included)... Note Patient: VINH COLBY RN: ([id number] Age: 50 years Sex: Male : 1970 [...] Procedures Performed PROCEDURES Ventral herniorrhaphy (SNOMED CT [id number]) performed by Earle MARS (more content not included)... Chief Complaint and Reason for Visit Chief Complaint Admit Date E ORDERS May 29, 2025 7:16 am Chief Complaint Admit Date E ORDERS May 29, 2025 7:16 am INT LABS July 03, 2025 7: 16am Additional Source Comments Reason for Visit (unrecogniz [...] Hep A- First injecti on from the [facility]- February 15 Reason Comments Follow-up go over CT results Status Reason Specialty Diagnoses / Procedures Referre d By Contact Referred To Contact Diagnoses chronic nasal obstruction,DNS, turbinate hypertropgy Procedures OK EXCISION TURBINATE,SUBMUCOUS OK REPAIR OF NASAL SEPTUM Earlene Cowan, [address] [facility] [address] [place] [address] Reason Comments Erectile Dysfunction Discuss testosteron e , pt has been off testosterone since March- he is very frustrated Hypertension Status Reason Specialty Diagnoses / Procedures Referre d By Contact Referred To Contact Closed Radiology Diagnoses Deviated nasal septum Chronic sinusitis, unspecified location Procedures CT Sinus Stealth Without Contrast Earlene Cowan, [address] [facility] [address] [place] [address] ED Provider Notes - Lelsie Chung DO - 10/27/2018 4:18 PM ESTED Attestation Note - Leslie Chung, DO - 10/27/2018 4:17 PM EST Miscellaneous Notes (unrecog nized section and content) Formatting of this note may be different from the original. ED PROVIDER NOTE [facility] EMERGENCY DEPARTMENT NAME: Vinh Colby AGE: 48 y.o. : 1970 VISIT DATE: 10/27/2018 CSN: [id number] PCP: Kailyn Looney DO Chief Complaint Patient [...] Coronary artery disease Mother at 66 [place] Social History Social History Marital status: Spouse [...] Colorless, Yellow Clarity, Urine Clear Clear Specific [place] 1.024 1.005 - 1.025 pH, Urine 5.0 [...] Normal appendix and unremarkable abdominal gas pattern. [facility]/[employer] Workstation ID: [id number] Procedures MDM Pain medicine [...] Kailyn Looney DO. Specialty: Family Medicine [address] [facility] [address] [id number] 2. [facility] Emergency Department. Specialty: Emergency Medicine Why: If symptoms worsen [address] [id number] Contact information for after-discharge care Follow-up information [...] note may be different from the original. [facility] ED Resident Note: NAME: Vinh Colby 48 y.o. CSN: [id number] PCP: Kailyn Looney DO History: Chief Complaint: [...] Coronary artery disease Mother at 66 of [place] SOC. Hx: Social History Social History Marital [...] other known risk factors. Radiology 2017. Feb 23:574330. DOI: [id number]. WPT/vrs Workstation ID: [id number] Procedures: Procedures ED [...] of his stay with us. Patient has [place] 5 and Valium at home from his [...] of their questions had been answered. Vinh Darby Morrisviv case was discussed with my attending physician who agrees with their ED management and final disposition. Please refer to their attestation to this encounter for additional information. Clinical Impression: SNOMED CT(R) 1. Musculoskeletal back pain BACKACHE Disposition: Patient is being Discharge to home Discharge Medication List as of 10/28/2018 2:56 AM Jace Collado DO ED Resident Physician [facility] Emergency Department (Please note that portions of [...] but it is just worse.in this encounter [facility] DEPARTMENT OF OTOLARYNGOLOGY Patient Name: Vinh Colby Date: 1970 Billing Number: [id number] Date of Procedure: 12/11/2019 Time: 1110 Pre Operative Diagnoses: 1. Deviated Nasal Septum 2. Nasal Obstruction 3. Bilateral Inferior Turbinate Hypertrophy Post Operative Diagnoses: 1. Deviated Nasal Septum 2. Nasal Obstruction 3. Bilateral Inferior Turbinate Hypertrophy Procedures: 1. Septoplasty 2. Bilateral Inferior Turbinate Reduction with Radiofrequency Ablation via Celon Surgeon: Dr. Earlene Cowan DO Golf Course Patroller: 1. Maci Cowan DO, ENT Resident PGY-5 [...] septum was injected with 1% lido with [id number] epinephrine and a total of 10 cc [...] Name: Vinh Colby Admit Date: MR #: [id number] : 1970 The H&P has been reviewed [...] Coronary artery disease Mother at 66 of [place] @ Prior to Admission medications Medication Sig [...] section and content) DATE CREATED AUTHOR 01/10/2020 [facility] DATE CREATED AUTHOR AUTHOR'S ORGANIZ ATION 05/29/2020 [facility] DATE CREATED AUTHOR AUTHOR'S ORGANIZ ATION 10/12/2020 [facility] DATE CREATED AUTHOR AUTHOR'S ORGANIZ ATION 12/13/2022 [facility] DATE CREATED AUTHOR AUTHOR'S ORGANIZ ATION 07/10/2025 [facility] Goals (unrecognized section and content) Goals [...] May 29, 2025 End: May 29, 2025 Team Status: Inactive Member Role/Relationship Status Dates Dr. Kailyn Ibrahim MD Primary Care Provider Active Start: July 03, 2025 End: July 03, 2025 Dr. Kailyn Ibrahim MD Attending Provider Active Start: July 03, 2025 End: July 03, 2025 Dr. Kailyn Ibrahim MD Referring Provider Active Start: July 03, 2025 End: July 03, 2025 Team Status: Active Member Role/Relationship Status Dates Dr. Kailyn Ibrahim MD Primary Care Provider Active Start: July 05, 2025 Dr. Kailyn Ibrahim MD Attending Provider Active Start: July 05, 2025 Dr. Kailyn Ibrahim MD Referring Provider Active Start: July 05, 2025 Team Status: Inactive Member Role/Relationship Status Dates Dr. Kailyn Ibrahim MD Primary Care Provider Active Start: July 05, 2025 End: July 05, 2025 Dr. Kailyn Ibrahim MD Attending Provider Active Start: July 05, 2025 End: July 05, 2025 Dr. Kailyn Ibrahim MD Referring Provider Active Start: July 05, 2025 End: July 05, 2025 FOR RECORDS PERTAINING TO PATIENTS WHO [...] BE BASED ON THE PRIMARY CLINICAL RECORDS. [facility]. provides no warranty or guarantee of the accuracy or completeness of information in this document.
[2025-09-17 08:11] LABS: Hematocrit 47.3 % (40-54); Hemoglobin 16.4 g/dL (13.0-16.5); Immature Granulocytes Count 0.010 X10^3/uL (0.0-0.0); Mean Corp Hgb Conc 34.7 g/dL (32-36); Mean Corpuscular Volume 86.5 fL (80-94); Mean Platelet Vol. 9.7 fl (6.2-12.0); NRBC Flagged by Analyzer 0 % (0-5); Platelet Count 241 K/mm3 (150-450); RBC Distribution Width CV 13.7 % (11.6-14.6); RBC Distribution Width SD 43.8 fl (35.1-43.9); Red Blood Count 5.47 M/mm3 (4.6-6.2); White Blood Count 6.3 K/mm3 (4.4-11.0)
[2025-09-17 08:51] LABS: AST(SGOT) 27 U/L (<=37); Alanine Aminotransfer ALT/SGPT 35 U/L (<=46); Albumin, Serum 4.4 g/dL (3.5-5.0); Alkaline Phosphatase 80 U/L (40-129); Anion Gap 10 (5-15); BUN 15 mg/dL (4-19); BUN/Creat Ratio 14.1 RATIO (10-20); Calcium,Total 9.2 mg/dL (7.6-11.0); Carbon Dioxide 26.3 mmol/L (21.0-32.0); Chloride 104 mmol/L (98-108); Cholesterol 184 mg/dL (<=200); Globulin 3.2 g/dL (2.2-4.2); Glucose 99 mg/dL (70-99); Low Density Lipoprotein Calc. 101 mg/dL; Potassium 4.1 mmol/L (3.3-5.1); Triglycerides 136 mg/dL; Very Low Density Lipoprotein 27 mg/dL (5-40); cholesterol:hdl ratio screen 3.11
== END | disposition home or self-care (01) ==
LOC: LAB 07:24
PROVIDERS: PCP Family Medicine; Referring Provider Family Medicine; Visit Provider Family Medicine
DX: E06.3 Autoimmune thyroiditis (principal); I10 Essential (primary) hypertension
CPT/HCPCS: 36415; 80053; 80061; 84439; 84443; 85025